=== PATIENT | male | born 1960 | race Caucasian/White ===

== ENCOUNTER 2024-08-06 09:14 | Emergency (ER) | payer MEDICARE, OTHER, SELFPAY ==
[2024-08-06] VITALS (11 sets, daily range): BP systolic 101–145; BP diastolic 48–70; PULSE 66–86; RESP 12–913; TEMP 36.9; O2SAT 91–100
--- NOTE | ~2024-08-06 | XR_ITS ---
CHEST RADIOGRAPH CLINICAL HISTORY: cp . COMPARISON: None available TECHNIQUE: Single portable view of the chest. FINDINGS The cardiomediastinal silhouette is unremarkable. The lungs are clear. Visualized osseous structures and soft tissues are unremarkable. IMPRESSION: No focal infiltrate or effusion. Reviewed, dictated and finalized at location A. ER EXPEDITOR AND DRIER
--- NOTE | ~2024-08-06 | CT_ITS ---
EXAMINATION: CTA chest abdomen pelvis DATE: 08/06/2024 10:30 PACKAGING ASSEMBLER INDICATION: Chest pain TECHNIQUE: Computed tomographic angiography (CTA) of the chest was performed, along with multiple con tiguous axial images of the abdomen and pelvis with 100 mL Omnipaque-350 intravenous contrast. The do se-length product was 748.77 mGy-cm. Maximum intensity projection 3D-reconstructions of the aorta and other arteries were constructed by the technologist on a separate workstation. FINDINGS/OBSERVATIONS: PULMONARY ARTERIES: No filling defect is identified within the main or proximal pulmonary arteries. The main pulmonary artery is not enlarged. THORACIC AORTA: No aneurysmal dilatation or dissection is present. The great vessels are intact LUNGS: The lungs are clear. MEDIASTINUM: No morphologically suspicious or pathologically enlarged lymph nodes are identified with in the mediastinum or bilateral axilla. BONES OF THE CHEST: No acute fracture. Moderate degenerative disease with osteophyte formation and disc space narrowing. No lytic or blastic lesions. HEART: The heart is of normal size, without pericardial effusion. LIVER: The liver enhances homogeneously and is not enlarged measuring 13 cm in longitudinal dimension. GALLBLADDER AND BILIARY SYSTEM: The gallbladder is only minimally distended, with multiple calcified stones and is otherwise unremark able. The common bile duct appears dilated measuring anywhere from 7.5 to 11 mm in caliber. No discrete aleshia rce of obstruction is appreciated on cross-sectional imaging. PANCREAS: The pancreas enhances homogeneously without ductal dilatation. Punctate calcifications throughout the body of the pancreas suggesting prior episodes of pancreatitis . SPLEEN: The spleen enhances homogeneously and is not enlarged measuring 9 cm in longitudinal dimension. KIDNEYS: The bilateral kidneys enhance symmetrically without hydronephrosis or renal calculi. Subcentimeter focus of decreased attenuation within the interpolar region of the right kidney, too sm all to characterize but statistically representing a cyst. ADRENAL GLANDS: Unremarkable. GASTROINTESTINAL TRACT: Small hiatal hernia is identified. Colonic diverticulosis without surrounding inflammatory change. Fecal stasis markedly distends the rectum APPENDIX: The appendix is not definitively visualized. However, no pericecal inflammatory change is identified suggest the presence of acute appendicitis. VASCULATURE: Densely calcified atherosclerotic disease within the abdominal aorta without aneurysmal dilatation or dissection LYMPH NODES: No pathologically enlarged or morphologically suspicious lymph nodes within the retroperitoneum or at the root of the mesentery. PELVIC STRUCTURES: The bladder is distended, and otherwise unremarkable. The prostate gland demonstrates bulky calcifications, but is not enlarged. BODY WALL AND MUSCULOSKELETAL: Small fat-containing umbilical hernia. Moderate degenerative disease within the lower thoracic and lumbosacral spines, with osteophyte forma tion, disc space narrowing, and endplate changes. Facet arthropathy is also noted. IMPRESSION: No pulmonary embolus. No aortic dissection. Fecal stasis markedly distending the rectum, suggesting fecal impaction. Cholelithiasis with common bile duct dilatation to 11 mm. Reviewed, dictated and finalized at location A. AGING ASSEMBLER
--- NOTE | 2024-08-06 09:15 | ECG_ITS ---
Test Date: 2024-08-06 09:23:07 Measurements Intervals [place] Rate: 71 P: 68 IN: 145 QRS: 2 QRSD: 79 T: 45 QT: 375 QTc: 410 Interpretive Statements SINUS RHYTHM WITH OCCASIONAL SUPRAVENTRICULAR PREMATURE COMPLEXES POSSIBLE LEFT ATRIAL ENLARGEMENT [-0.1mV P-WAVE IN V1/V2] No previous ECG available for comparison Electronically Signed On 08-06-2024 13:40:10 VISION IMPAIRED TEACHER by Fuentes Cartwright M.D.
--- NOTE | 2024-08-06 09:23 | ED.GENADULT ---
HPI - General Adult General Chief complaint: Chest Pain Stated complaint: cp, constipation Time Seen by Provider: 08/06/24 09:15 History of Present Illness HPI narrative: 63-year-old male presenting to the emergency department for evaluation for chest pain, back pain and constipation. Patient has dementia and does reside at a care facility. Patient had been complaining chest back pain prior to arrival. Patient does have a longstanding history of constipation as well. Patient stays at [facility] Related Data Allergies Allergy/AdvReac Type Severity Reaction Status Date / Time No Known Allergies Allergy Verified 08/06/24 09:20 Review of Systems Review of Systems: All systems reviewed & are unremarkable except as noted in HPI and below PMFSH Social History Social History Smoking status: Former smoker Alcohol intake: never Exam Narrative: APPEARANCE: Well appearing, no pain, no distress, well-nourished. HEAD: normocephalic, atraumatic. EYES: PERRLA/EOMI, conjunctivae clear. NOSE: Normal no drainage EARS:TMS clear with good light reflex. THROAT: Pharynx clear, no exudate. NECK: Supple. No adenopathy, no masses. RESPIRATORY: Airway patent, respirations nonlabored. Clear to auscultation bilaterally, no rales, rhonchi, wheezing. CARDIOVASCULAR: Regular rate and rhythm without murmurs rubs or gallops. ABDOMINAL: Normal bowel sounds with diffuse abdominal tenderness to palpation MUSCULOSKELETAL: Moves all extremities. Strength/ROM intact, No edema, No calf tenderness. NEURO: Alert. Cranial nerves II through XII intact. Good gait. Good coordination SKIN: Warm, dry. Normal Color Course Vital Signs Vital signs: Vital Signs Temperature 98.4 F 08/06/24 09:16 Pulse Rate 79 08/06/24 09:16 Respiratory Rate 15 08/06/24 09:16 Blood Pressure 120/70 08/06/24 09:16 Pulse Oximetry 95 08/06/24 09:16 Oxygen Delivery Room Air 08/06/24 09:16 Temperature 98.4 F 08/06/24 09:16 Pulse Rate 85 08/06/24 11:45 Respiratory Rate 14 08/06/24 11:45 Blood Pressure 133/67 08/06/24 11:31 Pulse Oximetry 91 08/06/24 11:31 Oxygen Delivery Room Air 08/06/24 09:16 Medical Decision Making [facility] Narrative Medical decision making narrative: 63-year-old male present to the emergency department for evaluation for chest pain back pain and constipation. Patient is afebrile with no leukocytosis and hemoglobin of 13.0. Patient has no significant abnormalities on the CMP troponins were negative, patient did have mild elevations and transaminases but no elevation in T bili. CTA chest abdomen pelvis did show evidence of constipation but no evidence of dissection. Patient's family was updated the results of the workup they were comfortable the plan for the patient being discharged back to his care facility. All questions concerns were addressed. Family was comfortable the patient being discharged home and doing home treatments for the constipation. Differential Diagnosis Differential Diagnosis: UTI, COVID, influenza, RSV, constipation, colitis, diverticulitis, bowel obstruction Vital Signs Vital Signs: Vital Signs Temperature 98.4 F 08/06/24 09:16 Pulse Rate 79 08/06/24 09:16 Respiratory Rate 15 08/06/24 09:16 Blood Pressure 120/70 08/06/24 09:16 Pulse Oximetry 95 08/06/24 09:16 Oxygen Delivery Room Air 08/06/24 09:16 Temperature 98.4 F 08/06/24 09:16 Pulse Rate 85 08/06/24 11:45 Respiratory Rate 14 08/06/24 11:45 Blood Pressure 133/67 08/06/24 11:31 Pulse Oximetry 91 08/06/24 11:31 Oxygen Delivery Room Air 08/06/24 09:16 Lab Data 08/06/24 09:34 08/06/24 09:34 Labs: Lab Results 08/06/24 08/06/24 Range/Units 09:34 12:12 WBC 5.9 (4.5-10.0) K/mm3 RBC 4.00 L (4.6-6.20) M/mm3 Hgb 13.0 L (14.0-18.0) g/dL Hct 36.2 L (42.0-52.0) % MCV 90.5 (80-100) fl MCH 32.5 (26-34) pg MCHC 35.9 (32-36) g/dl RDW 12.4 (11.5-14.5) % Plt Count 200 (150-375) k/mm3 MPV 9.3 (7.4-10.4) fl Immature Gran % (Auto) 0.2 (0-0.5) % Neut % (Auto) 75.3 H (45.5-73.1) % Lymph % (Auto) 14.5 L (18.3-44.2) % Harney % (Auto) 8.9 H (2.6-8.5) % Eos % (Auto) 0.9 (0-4.4) % Baso % (Auto) 0.2 (0.2-1.2) % Lymph # (Auto) 0.85 L (0.9-3.2) K/mm3 Harney # (Auto) 0.5 (0.1-0.6) K/mm3 Eos # (Auto) 0.1 (0-0.3) K/mm3 Baso # (Auto) 0.0 (0.0-0.1) K/mm3 Abs Immat Gran (auto) 0.01 (0.00-0.031) K/mm3 Absolute Neuts (auto) 4.4 (1.3-6.7) K/mm3 Absolute Nucleated RBC 0.000 (0.0-0.012) K/mm3 Nucleated RBC % 0.0 (0.0-0.2) % PT 14.3 (11.1-14.7) Seconds INR 1.1 APTT 29.9 (22.3-36.8) Seconds Sodium 134 L (137-145) mmol/L Potassium 3.8 (3.4-5.0) mmol/L Chloride 105 (98-107) mmol/L Carbon Dioxide 25 (22-30) mmol/L Anion Gap 4 (4-12) mmol/L BUN 15 (9-20) mg/dL Creatinine 0.80 (0.7-1.3) mg/dL Estim Creat Clear Calc 72 ml/min Estimated GFR > 60 (59 - ) Glucose 99 (65-110) mg/dL Calcium 8.8 (8.4-10.2) mg/dL Total Bilirubin 1.2 (0.2-1.3) mg/dL AST 135 H (17-59) U/L ALT 79 H (6-50) U/L Alkaline Phosphatase 58 (38-126) U/L Troponin I < 0.012 < 0.012 (0.000-0.034) ng/mL Total Protein 7.0 (6.3-8.2) g/dL Albumin 4.0 (3.5-5.1) g/dL Discharge Plan Discharge Clinical Impression: Chest pain, Constipation Patient Disposition: NH Long-Term/Asst Living Condition: Stable Instructions: Antibiotic Form, Chest Pain (ED), Constipation (ED) Additional Instructions: Increase your MiraLax dosing to help with constipation. Have close follow-up with your primary care physician. If you have any worsening symptoms then please call or return to the emergency department. Patient Language: Frisian Follow-up/Referrals: UNKNOWN,DOCTOR [Primary Care Provider] - Quality HEART score for chest pain patients History: slightly suspicious ECG: normal Age: < or = to 45 years Risk factors: 1 or 2 risk factors Troponin: < or = to 1x normal limit Heart score: 1
--- NOTE | 2024-08-06 09:37 | PC.NURSE ---
Patient ambulated to the restroom with assistance of and this RN. patient states he needed to have a bowel movement and is staying at the patient's side
[2024-08-06 09:42] LABS: Basophils Percent Auto 0.2 % (0.2-1.2); Eosinophils Absolute Auto 0.1 K/mm3 (0-0.3); Eosinophils Percent Auto 0.9 % (0-4.4); Hematocrit 36.2 % (42.0-52.0); Immature Granulocyte Absolute 0.01 K/mm3 (0.00-0.031); Immature Granulocyte Percent A 0.2 % (0-0.5); Lymphocytes Absolute Auto 0.85 K/mm3 (0.9-3.2); Lymphocytes Percent Auto 14.5 % (18.3-44.2); Mean Corpuscular HGB Conc 35.9 g/dl (32-36); Mean Corpuscular Hemoglobin 32.5 pg (26-34); Mean Corpuscular Volume 90.5 fl (80-100); Mean Platelet Volume 9.3 fl (7.4-10.4); Monocytes Absolute Auto 0.5 K/mm3 (0.1-0.6); Monocytes Percent Auto 8.9 % (2.6-8.5); Neutrophils Absolute Auto 4.4 K/mm3 (1.3-6.7); Neutrophils Percent Auto 75.3 % (45.5-73.1); Platelet Count Result 200 k/mm3 (150-375); Red Cell Distribution Width 12.4 % (11.5-14.5); White Blood Count 5.9 K/mm3 (4.5-10.0)
[2024-08-06 09:58] LABS: Alanine Aminotransferase 79 U/L (6-50); Alkaline Phosphatase 58 U/L (38-126); Anion Gap 4 mmol/L (4-12); Aspartate Amino Transferase 135 U/L (17-59); Bilirubin,Total 1.2 mg/dL (0.2-1.3); Blood Urea Nitrogen 15 mg/dL (9-20); Calcium 8.8 mg/dL (8.4-10.2); Carbon Dioxide 25 mmol/L (22-30); Chloride 105 mmol/L (98-107); Estimated CRCL calculation 72 ml/min; Estimated Glomerular Filt Rate > 60; Glucose 99 mg/dL (65-110); Potassium 3.8 mmol/L (3.4-5.0); Sodium 134 mmol/L (137-145)
[2024-08-06 09:59] LABS: INR 1.1; Prothrombin Time 14.3 Seconds (11.1-14.7)
[2024-08-06 10:00] LABS: Partial Thromboplastin Time 29.9 Seconds (22.3-36.8)
--- NOTE | 2024-08-06 10:00 | PC.NURSE ---
Patient unable to have a bowel movement. Per , patient has not had a BM in 3 days.
[2024-08-06 10:10] LABS: Troponin I < 0.012 ng/mL (0.000-0.034)
--- NOTE | 2024-08-06 11:06 | PC.NURSE ---
Patient ambulated to the restroom with steady gate
--- NOTE | 2024-08-06 11:20 | PC.NURSE ---
Patient placed on bed alarm for safety. Patient altered at this time and attempting to get out of bed. patient easily directed back into bed. family at bedside
--- NOTE | 2024-08-06 12:02 | ECG_ITS ---
Test Date: 2024-08-06 12:09:01 Measurements Intervals [place] Rate: 96 P: 74 MI: 141 QRS: -13 QRSD: 78 T: 51 QT: 348 QTc: 440 Interpretive Statements SINUS RHYTHM POSSIBLE LEFT ATRIAL ENLARGEMENT [-0.1mV P WAVE IN V1/V2] Compared to ECG 08/06/2024 09:23:07 No significant changes Electronically Signed On 08-06-2024 13:34:11 LAUNDRY MACHINE OPERATOR by Fuentes Cartwright M.D.
--- NOTE | 2024-08-06 12:05 | PC.NURSE ---
Elli at bedside with patient for safety
[2024-08-06 12:38] LABS: Troponin I < 0.012 ng/mL (0.000-0.034)
--- OUTSIDE RECORDS SUMMARY | 2024-08-13 04:54 | XMS_ITS | Encounter Summary ---
Author Organization [facility] Address [address] [place] [address] Phone Care Team Providers Care Base Engineer Name Role Phone Provider, None Primary Care Provider Mustapha Hall MD Unavailable [phone] Reason for Visit * Auth/Cert (Routine) Specialty Diagnoses / Procedures Referred By Samira t Referred To Contact Referral ID Status Reason Start Date Expiration Date Visits Re quested Visits Authorized [id number] 1 1 Encounter Details Date Type Department Care Team (Latest Contact Info) Description 07/02/2024 11:00 AM PEDIATRIC UROLOGIST Home Care Visit [facility] [address] [place] [address] Homa Bernabe RN [place] - [place] HOME VISIT Social History Tobacco Use Types Packs/Day Years Used Date Smoking Tobacco: Never Assessed Sex and Gender Information Value Date Recorded Sex Assigned at Not on file Legal Sex Male 2:48 AM PEDIATRIC UROLOGIST Gender Identity Not on file Sexual Orientation Not on file documented as of this encounter Last Filed Vital Signs Vital Sign Reading Time Taken Comments Blood Pressure 109/68 07/02/2024 11:40 AM PEDIATRIC UROLOGIST Pulse 81 07/02/2024 11:40 AM PEDIATRIC UROLOGIST Temperature 36.4 ??C (97.5 ??F) 07/02/2024 11:[address] Respiratory Rate 16 07/02/2024 11:40 AM PEDIATRIC UROLOGIST Oxygen Saturation 96% 07/02/2024 11:40 AM PEDIATRIC UROLOGIST Inhaled Oxygen Concentration - - Weight - - Height - - Body Mass Index - - documented in this encounter Plan of Treatment Not on file documented as of this encounter Visit Diagnoses Not on filedocumented in this encounter Care Teams Base Engineer Relationship Specialty Start Date End Date Provider, None [place] PCP - General 04/27/24 Mustapha Cárdenas MD [address] [place] [address] PCP - Hospice Attending Provider 04/28/24 07/18/24 documented as of this encounter
--- OUTSIDE RECORDS SUMMARY | 2024-08-13 04:54 | XMS_ITS | Encounter Summary ---
Author Organization [facility] Address [address] [facility] [place] [address] Phone Care Team Providers Care Pre Press Manager Name Role Phone Provider, None Primary Care Provider Mustapha Hall MD Unavailable [phone] Encounter Details Date Type Department Care Team (Late st Contact Info) Description 05/21/2024 Telephone [facility] [address] [place] [address] Homa Bernabe, RN [place] Social History Tobacco Use Types Packs/Day Years Used Date Smoking Tobacco: Never Assessed Sex and Gender Information Value Date Recorded Sex Assigned at Not on file Legal Sex Male 2:48 AM NOISE TESTER Gender Identity Not on file Sexual Orientation Not on file documented as of this encounter Miscellaneous Notes * Telephone Encounter - Homa Bernabe RN - 05/21/2024 11:52 AM CDT Spoke to Dr Cárdenas regarding pending meds to [facility]. documented in this encounter Plan of Treatment Not on file documented as of this encounter Visit Diagnoses Diagnosis Terminal care- Primary Encounter for palliative care documented in this encounter Care Teams Pre Press Manager Relationship Specialty Start Date End Date Provider, None [place] PCP - General 04/27/24 Mustapha Cárdenas MD [address] [place] [address] PCP - Hospice Attending Provider 04/28/24 07/18/24 documented as of this encounter
--- OUTSIDE RECORDS SUMMARY | 2024-08-13 04:54 | XMS_ITS | Encounter Summary ---
Author Organization [facility] Address [address] [place] [address] Phone Care Team Providers Care Bladder Cleaner Name Role Phone Provider, None Primary Care Provider Mustapha Hall MD Unavailable [phone] Reason for Visit * Auth/Cert (Routine) Specialty Diagnoses / Procedures Referred By Samira yu Referred To Contact Referral ID Status Reason Start Date Expiration Date Visits Re quested Visits Authorized [id number] 1 1 Encounter Details Date Type Department Care Team (Latest Contact Info) Description 05/16/2024 11:00 AM CDT Home Care Visit [facility] [address] [place] [address] Homa Bernabe RN [place] HOME VISIT Social History Tobacco Use Types Packs/Day Years Used Date Smoking Tobacco: Never Assessed Sex and Gender Information Value Date Recorded Sex Assigned at Not on file Legal Sex Male 2:48 AM METAL PATTERNMAKER Gender Identity Not on file Sexual Orientation Not on file documented as of this encounter Last Filed Vital Signs Vital Sign Reading Time Taken Comments Blood Pressure 100/74 05/16/2024 11:03 AM CDT Pulse 81 05/16/2024 11:03 AM CDT Temperature 36.4 ??C (97.5 ??F) 05/16/2024 11:03 AM C DT Respiratory Rate 16 05/16/2024 11:03 AM CDT Oxygen Saturation 97% 05/16/2024 11:03 AM CDT Inhaled Oxygen Concentration - - Weight - - Height - - Body Mass Index - - documented in this encounter Plan of Treatment Not on file documented as of this encounter Visit Diagnoses Not on filedocumented in this encounter Care Teams Bladder Cleaner Relationship Specialty Start Date End Date Provider, None [place] PCP - General 04/27/24 Mustapha Cárdenas MD [address] [place] [address] PCP - Hospice Attending Provider 04/28/24 07/18/24 documented as of this encounter
--- OUTSIDE RECORDS SUMMARY | 2024-08-13 04:54 | XMS_ITS | Encounter Summary ---
Author Organization [facility] Address [address] [place] [address] Phone Care Team Providers Care Char Filter Operator Helper Name Role Phone Provider, None Primary Care Provider Mustapha Hall MD Unavailable [phone] Reason for Visit * Auth/Cert (Routine) Specialty Diagnoses / Procedures Referred By Samira yu Referred To Contact Referral ID Status Reason Start Date Expiration Date Visits Re quested Visits Authorized [id number] 1 1 Encounter Details Date Type Department Care Team (Late st Contact Info) Description 07/11/2024 1:00 PM BANK MESSENGER [facility] [address] [place] [address] Toya Fung CNA [place] [facility] - [facility]IS[facility] Social History Tobacco Use Types Packs/Day Years Used Date Smoking Tobacco: Never Assessed Sex and Gender Information Value Date Recorded Sex Assigned at Not on file Legal Sex Male 2:48 AM BANK MESSENGER Gender Identity Not on file Sexual Orientation Not on file documented as of this encounter Last Filed Vital Signs Vital Sign Reading Time Taken Comments Blood Pressure 104/86 07/11/2024 12:40 PM BANK MESSENGER Pulse 101 07/11/2024 12:40 PM BANK MESSENGER Temperature 36.4 ??C (97.5 ??F) 07/11/2024 12:[address] Respiratory Rate 18 07/11/2024 12:40 PM BANK MESSENGER Oxygen Saturation 98% 07/11/2024 12:40 PM BANK MESSENGER Inhaled Oxygen Concentration - - Weight - - Height - - Body Mass Index - - documented in this encounter Plan of Treatment Not on file documented as of this encounter Visit Diagnoses Not on filedocumented in this encounter Hospice Visit - Care Plan Visit Details Visit Type -[facility] - HOSPICE Vi sit Discipline -Wildlife Officer Problems Problem Description Start Date Status Goals Interve ntions [facility] SERVICES Disciplines: Wildlife Officer 04/28/2024 Active 1 goal linked to scheduled/document ed intervention 1 goal intervention scheduled/document ed in this visit [facility] PROVIDE BATH Disciplines: Wildlife Officer 04/28/2024 Active - 1 problem intervention scheduled/document ed in this visit [facility] CARE PLAN Disciplines: Wildlife Officer [facility] Care Plan 04/28/2024 Active - 7 problem interventions scheduled/document ed in this visit [facility] CARE PLAN Disciplines: Wildlife Officer [facility] Care Plan 05/13/2024 Active - 1 problem intervention scheduled/document ed in this visit Goals Goal Associated Problem Outcome Goal Met? Visit Notes [facility] Care Plan Description: Patient will have personal hygiene needs met. Target date: within 2 weeks and beyond 07/26/24 [facility] SERVICES No Interventions Intervention Associated Problem/Goal Status Variance Visit Notes [facility] Services/Communication Description: Provide [facility] services as described in the [facility] Care Plan. Report changes in medical condition, complaints and safety concerns to the Office Machines Teacher. Problem:[facility] SERVICES Goal:[facility] Care Plan Completed Evaluated for a change in medical condition, complaint of pain, safety concern or other issues. Issues identified none. Communicated to CM. Provide Bath Description: Bathe patient unless patient/caregiver declines. Method: shower Problem:[facility] PROVIDE BATH Completed Bathed patient by shower. Apply Non-Medicated Lotion Or Powder Description: Apply non medicated lotion or powder unless patient/caregiver declines. Problem:[facility] CARE PLAN Completed Applied non medicated lotion or powder to arms, legs and back Take Vital Signs Description: Take Vital signs pulse, temperature, respirations and blood pressure. Vital sign parameters: Refer to vital sign parameters order in Summary Report/ Patient Summary. Problem:[facility] CARE PLAN Completed See Vital Signs flowsheet. Utilize Appropriate Precautions Description: Precautions other fall prevention, standard precautions. Problem:[facility] CARE PLAN Completed Precautions taken skin risks and falls Perform Oral Care Description: Assist with oral care brush teeth unless patient/caregiver declines. Problem:[facility] CARE PLAN Completed Perform Hair Care Description: Provide hair care unless patient/caregiver declines. Problem:[facility] CARE PLAN Completed Assist With Dressing Description: Assist patient with dressing/undressing unless patient/caregiver declines. Problem:[facility] CARE PLAN Completed Communicate with Hay Buckler Description: Communicate with access clinician as needed. Problem:[facility] CARE PLAN Completed Assist With Shaving Description: Shave patient unless patient/caregiver declines. Problem:[facility] CARE PLAN Completed documented in this encounter Care Teams Char Filter Operator Helper Relationship Specialty Start Date End Date Provider, None [place] PCP - General 04/27/24 Mustapha Cárdenas MD [address] [place] [address] PCP - Hospice Attending Provider 04/28/24 07/18/24 documented as of this encounter
--- OUTSIDE RECORDS SUMMARY | 2024-08-13 04:54 | XMS_ITS | Encounter Summary ---
Author Organization [facility] Care Team Providers Care Boiler Installer Name Role Phone Provider, None Primary Care Provider Mustapha Hall MD Unavailable Encounter Details Date Type Department Care Team (Latest Contact Info) Description 06/06/2024 Travel Social History Tobacco Use Types Packs/Day Years Used Date Smoking Tobacco: Never Assessed Sex and Gender Information Value Date Recorded Sex Assigned at Not on file Legal Sex Male 2:48 AM PROJECTION ENGINEER Gender Identity Not on file Sexual Orientation Not on file documented as of this encounter Plan of Treatment Not on file documented as of this encounter Visit Diagnoses Not on filedocumented in this encounter Care Teams Boiler Installer Relationship Specialty Start Date End Date Provider, None [place] PCP - General 04/27/24 Mustapha Cárdenas MD [address] [place] [address] PCP - Hospice Attending Provider 04/28/24 07/18/24 documented as of this encounter
--- OUTSIDE RECORDS SUMMARY | 2024-08-13 04:54 | XMS_ITS | Encounter Summary ---
Author Organization [facility] Address [address] [place] [address] Phone Care Team Providers Care Tennis Ball Coverer Hand Name Role Phone Provider, None Primary Care Provider Mustapha Hall MD Unavailable [phone] Reason for Visit * Auth/Cert (Routine) Specialty Diagnoses / Procedures Referred By Samira t Referred To Contact Referral ID Status Reason Start Date Expiration Date Visits Re quested Visits Authorized [id number] 1 1 Encounter Details Date Type Department Care Team (Latest Contact Info) Description 07/09/2024 1:00 PM NON FOOD RECEIVING CLERK [facility] [address] [place] [address] Homa Bernabe RN [place] HOME VISIT Social History Tobacco Use Types Packs/Day Years Used Date Smoking Tobacco: Never Assessed Sex and Gender Information Value Date Recorded Sex Assigned at Not on file Legal Sex Male 2:48 AM NON FOOD RECEIVING CLERK Gender Identity Not on file Sexual Orientation Not on file documented as of this encounter Last Filed Vital Signs Vital Sign Reading Time Taken Comments Blood Pressure - - Pulse 87 07/09/2024 12:41 PM NON FOOD RECEIVING CLERK Temperature 36.3 ??C (97.3 ??F) 07/09/2024 12:[address] Respiratory Rate 16 07/09/2024 12:41 PM NON FOOD RECEIVING CLERK Oxygen Saturation 92% 07/09/2024 12:41 PM NON FOOD RECEIVING CLERK Inhaled Oxygen Concentration - - Weight - - Height - - Body Mass Index - - documented in this encounter Plan of Treatment Not on file documented as of this encounter Visit Diagnoses Not on filedocumented in this encounter Care Teams Tennis Ball Coverer Hand Relationship Specialty Start Date End Date Provider, None [place] PCP - General 04/27/24 Mustapha Cárdenas MD [address] [place] [address] PCP - Hospice Attending Provider 04/28/24 07/18/24 documented as of this encounter
--- OUTSIDE RECORDS SUMMARY | 2024-08-13 04:54 | XMS_ITS | Encounter Summary ---
Author Organization [facility] Address [address] [place] [address] Phone Care Team Providers Care Truck Driver Helper Name Role Phone Provider, None Primary Care Provider Mustapha Hall MD Unavailable [phone] Reason for Visit * Auth/Cert (Routine) Specialty Diagnoses / Procedures Referred By Samira yu Referred To Contact Referral ID Status Reason Start Date Expiration Date Visits Re quested Visits Authorized [id number] 1 1 Encounter Details Date Type Department Care Team (Latest Contact Info) Description 05/23/2024 11:00 AM CDT [facility] [address] [place] [address] Homa Bernabe RN [place] SN - HOSPICE HOME VISIT Social History Tobacco Use Types Packs/Day Years Used Date Smoking Tobacco: Never Assessed Sex and Gender Information Value Date Recorded Sex Assigned at Not on file Legal Sex Male 2:48 AM VISUAL AND STOCK ASSOCIATE Gender Identity Not on file Sexual Orientation Not on file documented as of this encounter Last Filed Vital Signs Vital Sign Reading Time Taken Comments Blood Pressure 152/82 05/23/2024 11:32 AM CDT Pulse 98 05/23/2024 11:32 AM CDT Temperature 36.6 ??C (97.9 ??F) 05/23/2024 11:32 AM C DT Respiratory Rate 16 05/23/2024 11:32 AM CDT Oxygen Saturation 96% 05/23/2024 11:32 AM CDT Inhaled Oxygen Concentration - - Weight - - Height - - Body Mass Index - - documented in this encounter Plan of Treatment Not on file documented as of this encounter Visit Diagnoses Not on filedocumented in this encounter Care Teams Truck Driver Helper Relationship Specialty Start Date End Date Provider, None [place] PCP - General 04/27/24 Mustapha Cárdenas MD [address] [place] [address] PCP - Hospice Attending Provider 04/28/24 07/18/24 documented as of this encounter
--- OUTSIDE RECORDS SUMMARY | 2024-08-13 04:54 | XMS_ITS | Encounter Summary ---
Author Organization [facility] Address [address] [place] [address] Phone Care Team Providers Care Customer Engagement Analyst Name Role Phone Provider, None Primary Care Provider Mustapha Hall MD Unavailable [phone] Reason for Visit * Auth/Cert (Routine) Specialty Diagnoses / Procedures Referred By Samira yu Referred To Contact Referral ID Status Reason Start Date Expiration Date Visits Re quested Visits Authorized [id number] 1 1 Encounter Details Date Type Department Care Team (Latest Contact Info) Description 05/15/2024 1:00 PM CDT [facility] [address] [place] [address] Earl Roblero CNA [place] [facility] - [facility]ICE VISIT Social History Tobacco Use Types Packs/Day Years Used Date Smoking Tobacco: Never Assessed Sex and Gender Information Value Date Recorded Sex Assigned at Not on file Legal Sex Male 2:48 AM HEREDITARY CANCER PROGRAM COORDINATOR Gender Identity Not on file Sexual Orientation Not on file documented as of this encounter Last Filed Vital Signs Vital Sign Reading Time Taken Comments Blood Pressure 140/64 05/15/2024 1:47 PM CDT Pulse 82 05/15/2024 1:47 PM CDT Temperature - - Respiratory Rate 18 05/15/2024 1:47 PM CDT Oxygen Saturation - - Inhaled Oxygen Concentration - - Weight - - Height - - Body Mass Index - - documented in this encounter Plan of Treatment Not on file documented as of this encounter Visit Diagnoses Not on filedocumented in this encounter Hospice Visit - Care Plan Visit Details Visit Type -[facility] - HOSPICE Vi sit Discipline -Welder Gas Tungsten Arc Problems Problem Description Start Date Status Goals Interve ntions [facility] SERVICES Disciplines: Welder Gas Tungsten Arc 04/28/2024 Active 1 goal linked to scheduled/document ed intervention 1 goal intervention scheduled/document ed in this visit [facility] PROVIDE BATH Disciplines: Welder Gas Tungsten Arc 04/28/2024 Active - 1 problem intervention scheduled/document ed in this visit [facility] CARE PLAN Disciplines: Welder Gas Tungsten Arc [facility] Care Plan 04/28/2024 Active - 7 problem interventions scheduled/document ed in this visit [facility] CARE PLAN Disciplines: Welder Gas Tungsten Arc [facility] Care Plan 05/13/2024 Active - 1 [...] condition, complaints and safety concerns to the Applications Project Manager. Problem:[facility] SERVICES Goal:[facility] Care Plan Completed Evaluated for a change in medical condition, complaint of pain, safety concern or other issues. Issues identified no issues Communicated to CM Provide Bath Description: Bathe patient unless patient/caregiver declines. Method: shower Problem:[facility] PROVIDE BATH Completed Bathed patient by shower. Apply Non-Medicated Lotion Or Powder Description: Apply non medicated lotion or powder unless patient/caregiver declines. Problem:[facility] CARE PLAN Completed Applied non medicated lotion or powder to back arms and legs Take Vital Signs Description: Take Vital signs pulse, temperature, respirations and blood pressure. Vital sign parameters: Refer to vital sign parameters order in Summary Report/ Patient Summary. Problem:[facility] CARE PLAN Completed See Vital Signs flowsheet. Utilize Appropriate Precautions Description: Precautions other fall prevention, standard precautions. Problem:[facility] CARE PLAN Completed Precautions taken skin risks and falls. Perform Oral Care Description: Assist with oral care brush teeth unless patient/caregiver declines. Problem:[facility] CARE PLAN Completed Perform Hair Care Description: Provide hair care unless patient/caregiver declines. Problem:[facility] CARE PLAN Completed Assist With Dressing Description: Assist patient with dressing/undressing unless patient/caregiver declines. Problem:[facility] CARE PLAN Completed Communicate with Channeler Insole Description: Communicate with outreach clinician as needed. Problem:[facility] CARE PLAN Completed Assist With Shaving Description: Shave patient unless patient/caregiver declines. Problem:[facility] CARE PLAN Completed documented in this encounter Care Teams Customer Engagement Analyst Relationship Specialty Start Date End Date Provider, None [place] PCP - General 04/27/24 Mustapha Cárdenas MD [address] [place] [address] PCP - Hospice Attending Provider 04/28/24 07/18/24 documented as of this encounter
--- OUTSIDE RECORDS SUMMARY | 2024-08-13 04:54 | XMS_ITS | Encounter Summary ---
Author Organization [facility] Address [address] [place] [address] Phone Care Team Providers Care Digital Media Buyer Name Role Phone Provider, None Primary Care Provider Mustapha Hall MD Unavailable [phone] Reason for Visit * Auth/Cert (Routine) Specialty Diagnoses / Procedures Referred By Samira t Referred To Contact Referral ID Status Reason Start Date Expiration Date Visits Re quested Visits Authorized [id number] 1 1 Encounter Details Date Type Department Care Team (Latest Contact Info) Description 06/17/2024 10:00 AM ROUGH CARPENTER Home [facility] Visit [facility] [address] [place] [address] Homa Bernabe RN [place] - [place]OSPICE HOME VISIT Social History Tobacco Use Types Packs/Day Years Used Date Smoking Tobacco: Never Assessed Sex and Gender Information Value Date Recorded Sex Assigned at Not on file Legal Sex Male 2:48 AM ROUGH CARPENTER Gender Identity Not on file Sexual Orientation Not on file documented as of this encounter Last Filed Vital Signs Vital Sign Reading Time Taken Comments Blood Pressure 128/70 06/17/2024 10:29 AM ROUGH CARPENTER Pulse 94 06/17/2024 10:29 AM ROUGH CARPENTER Temperature 36.6 ??C (97.9 ??F) 06/17/2024 10:[address] Respiratory Rate 16 06/17/2024 10:29 AM ROUGH CARPENTER Oxygen Saturation 98% 06/17/2024 10:29 AM ROUGH CARPENTER Inhaled Oxygen Concentration - - Weight - - Height - - Body Mass Index - - documented in this encounter Plan of Treatment Not on file documented as of this encounter Visit Diagnoses Not on filedocumented in this encounter Care Teams Digital Media Buyer Relationship Specialty Start Date End Date Provider, None [place] PCP - General 04/27/24 Mustapha Cárdenas MD [address] [place] [address] PCP - Hospice Attending Provider 04/28/24 07/18/24 documented as of this encounter
--- OUTSIDE RECORDS SUMMARY | 2024-08-13 04:54 | XMS_ITS | Encounter Summary ---
Author Organization [facility] Address [address] [place] [address] Phone Care Team Providers Care Sales Training Manager Name Role Phone Provider, None Primary Care Provider Mustapha Hall MD Unavailable [phone] Reason for Visit * Auth/Cert (Routine) Specialty Diagnoses / Procedures Referred By Samira t Referred To Contact Referral ID Status Reason Start Date Expiration Date Visits Re quested Visits Authorized [id number] 1 1 Encounter Details Date Type Department Care Team (Late st Contact Info) Description 06/27/2024 [facility] [address] [place] [address] Homa Bernabe, RN [place] CASE COMMUNICATION Social History Tobacco Use Types Packs/Day Years Used Date Smoking Tobacco: Never Assessed Sex and Gender Information Value Date Recorded Sex Assigned at Not on file Legal Sex Male 2:48 AM ANIMAL TRAINER Gender Identity Not on file Sexual Orientation Not on file documented as of this encounter Plan of Treatment Not on file documented as of this encounter Visit Diagnoses Not on filedocumented in this encounter Care Teams Sales Training Manager Relationship Specialty Start Date End Date Provider, None [place] PCP - General 04/27/24 Mustapha Cárdenas MD [address] [place] [address] PCP - Hospice Attending Provider 04/28/24 07/18/24 documented as of this encounter
--- OUTSIDE RECORDS SUMMARY | 2024-08-13 04:54 | XMS_ITS | Encounter Summary ---
Author Organization [facility] Care Team Providers Care Behavioral Psychologist Name Role Phone Provider, None Primary Care Provider Mustapha Hall MD Unavailable Encounter Details Date Type Department Care Team (Latest Contact Info) Description 07/15/2024 Travel Social History Tobacco Use Types Packs/Day Years Used Date Smoking Tobacco: Never Assessed Sex and Gender Information Value Date Recorded Sex Assigned at Not on file Legal Sex Male 2:48 AM DOLLY PUSHER Gender Identity Not on file Sexual Orientation Not on file documented as of this encounter Plan of Treatment Not on file documented as of this encounter Visit Diagnoses Not on filedocumented in this encounter Care Teams Behavioral Psychologist Relationship Specialty Start Date End Date Provider, None [place] PCP - General 04/27/24 Mustapha Cárdenas MD [address] [place] [address] PCP - Hospice Attending Provider 04/28/24 07/18/24 documented as of this encounter
--- OUTSIDE RECORDS SUMMARY | 2024-08-13 04:54 | XMS_ITS | Encounter Summary ---
Author Organization [facility] Address [address] [place] [address] Phone Care Team Providers Care Process Improvement Engineer Name Role Phone Provider, None Primary Care Provider Mustapha Hall MD Unavailable [phone] Reason for Visit * Auth/Cert (Routine) Specialty Diagnoses / Procedures Referred By Samira yu Referred To Contact Referral ID Status Reason Start Date Expiration Date Visits Re quested Visits Authorized [id number] 1 1 Encounter Details Date Type Department Care Team (Latest Contact Info) Description 07/15/2024 11:00 AM TECHNOLOGY SOLUTIONS ARCHITECT Home Care Visit [facility] [address] [place] [address] Homa Bernabe RN [place] - HOSPICE HOME VISIT Social History Tobacco Use Types Packs/Day Years Used Date Smoking Tobacco: Never Assessed Sex and Gender Information Value Date Recorded Sex Assigned at Not on file Legal Sex Male 2:48 AM TECHNOLOGY SOLUTIONS ARCHITECT Gender Identity Not on file Sexual Orientation Not on file documented as of this encounter Last Filed Vital Signs Vital Sign Reading Time Taken Comments Blood Pressure 122/87 07/15/2024 11:02 AM TECHNOLOGY SOLUTIONS ARCHITECT Pulse 91 07/15/2024 11:02 AM TECHNOLOGY SOLUTIONS ARCHITECT Temperature 36.3 ??C (97.3 ??F) 07/15/2024 11:[address] Respiratory Rate 16 07/15/2024 11:02 AM TECHNOLOGY SOLUTIONS ARCHITECT Oxygen Saturation 96% 07/15/2024 11:02 AM TECHNOLOGY SOLUTIONS ARCHITECT Inhaled Oxygen Concentration - - Weight - - Height - - Body Mass Index - - documented in this encounter Plan of Treatment Not on file documented as of this encounter Visit Diagnoses Not on filedocumented in this encounter Care Teams Process Improvement Engineer Relationship Specialty Start Date End Date Provider, None [place] PCP - General 04/27/24 Mustapha Cárdenas MD [address] [place] [address] PCP - Hospice Attending Provider 04/28/24 07/18/24 documented as of this encounter
--- OUTSIDE RECORDS SUMMARY | 2024-08-13 04:54 | XMS_ITS | Encounter Summary ---
Author Organization [facility] Address [address] [place] [address] Phone Care Team Providers Care Piece Cutter Name Role Phone Provider, None Primary Care Provider Mustapha Hall MD Unavailable [phone] Reason for Visit * Auth/Cert (Routine) Specialty Diagnoses / Procedures Referred By Samira yu Referred To Contact Referral ID Status Reason Start Date Expiration Date Visits Re quested Visits Authorized [id number] 1 1 Encounter Details Date Type Department Care Team (Latest Contact Info) Description 06/28/2024 11:00 AM PROJECT CONTROLLER [facility] [address] [place] [address] Homa Bernabe RN [place] SN - HOSPICE HOME VISIT Social History Tobacco Use Types Packs/Day Years Used Date Smoking Tobacco: Never Assessed Sex and Gender Information Value Date Recorded Sex Assigned at Not on file Legal Sex Male 2:48 AM PROJECT CONTROLLER Gender Identity Not on file Sexual Orientation Not on file documented as of this encounter Last Filed Vital Signs Vital Sign Reading Time Taken Comments Blood Pressure 129/93 06/28/2024 11:12 AM PROJECT CONTROLLER Pulse 98 06/28/2024 11:12 AM PROJECT CONTROLLER Temperature 36.4 ??C (97.5 ??F) 06/28/2024 11:[address] Respiratory Rate 16 06/28/2024 11:12 AM PROJECT CONTROLLER Oxygen Saturation - - Inhaled Oxygen Concentration - - Weight - - Height - - Body Mass Index - - documented in this encounter Plan of Treatment Not on file documented as of this encounter Visit Diagnoses Not on filedocumented in this encounter Care Teams Piece Cutter Relationship Specialty Start Date End Date Provider, None [place] PCP - General 04/27/24 Mustapha Cárdenas MD [address] [place] [address] PCP - Hospice Attending Provider 04/28/24 07/18/24 documented as of this encounter
--- OUTSIDE RECORDS SUMMARY | 2024-08-13 04:54 | XMS_ITS | Encounter Summary ---
Author Organization [facility] Address [address] [place] [address] Phone Care Team Providers Care Assistant Kitchen Manager Name Role Phone Provider, None Primary Care Provider Mustapha Hall MD Unavailable [phone] Reason for Visit * Auth/Cert (Routine) Specialty Diagnoses / Procedures Referred By Samira yu Referred To Contact Referral ID Status Reason Start Date Expiration Date Visits Re quested Visits Authorized [id number] 1 1 Encounter Details Date Type Department Care Team (Latest Contact Info) Description 07/04/2024 1:00 PM CHICKEN HATCHERY HELPER [facility] [address] [place] [address] Earl Roblero CNA [place] [facility] - [facility]PICE VISIT Social History Tobacco Use Types Packs/Day Years Used Date Smoking Tobacco: Never Assessed Sex and Gender Information Value Date Recorded Sex Assigned at Not on file Legal Sex Male 2:48 AM CHICKEN HATCHERY HELPER Gender Identity Not on file Sexual Orientation Not on file documented as of this encounter Last Filed Vital Signs Vital Sign Reading Time Taken Comments Blood Pressure 131/72 07/04/2024 12:10 PM CHICKEN HATCHERY HELPER Pulse 76 07/04/2024 12:10 PM CHICKEN HATCHERY HELPER Temperature 36.6 ??C (97.8 ??F) 07/04/2024 12:[address] Respiratory Rate 18 07/04/2024 12:10 PM CHICKEN HATCHERY HELPER Oxygen Saturation - - Inhaled Oxygen Concentration - - Weight - - Height - - Body Mass Index - - documented in this encounter Plan of Treatment Not on file documented as of this encounter Visit Diagnoses Not on filedocumented in this encounter Hospice Visit - Care Plan Visit Details Visit Type -[facility] - HOSPICE Vi sit Discipline -Count Room Clerk Problems Problem Description Start Date Status Goals Interve ntions [facility] SERVICES Disciplines: Count Room Clerk 04/28/2024 Active 1 goal linked to scheduled/document ed intervention 1 goal intervention scheduled/document ed in this visit [facility] PROVIDE BATH Disciplines: Count Room Clerk 04/28/2024 Active - 1 problem intervention scheduled/document ed in this visit [facility] CARE PLAN Disciplines: Count Room Clerk [facility] Care Plan 04/28/2024 Active - 7 problem interventions scheduled/document ed in this visit [facility] CARE PLAN Disciplines: Count Room Clerk [facility] Care Plan 05/13/2024 Active - 1 [...] condition, complaints and safety concerns to the Transportation Maintenance Worker. Problem:[facility] SERVICES Goal:[facility] Care Plan Completed Evaluated for a change in medical condition, complaint of pain, safety concern or other issues. Issues identified none. Communicated to CM Provide Bath Description: Bathe patient unless patient/caregiver declines. Method: shower Problem:[facility] PROVIDE BATH Completed Bathed patient by shower. Apply Non-Medicated Lotion Or Powder Description: Apply non medicated lotion or powder unless patient/caregiver declines. Problem:[facility] CARE PLAN Completed Applied non medicated lotion or powder to back arm's and legs Take Vital Signs Description: Take Vital signs pulse, temperature, respirations and blood pressure. Vital sign parameters: Refer to vital sign parameters order in Summary Report/ Patient Summary. Problem:[facility] CARE PLAN Completed See Vital Signs flowsheet. Utilize Appropriate Precautions Description: Precautions other fall prevention, standard precautions. Problem:[facility] CARE PLAN Completed Precautions taken skin risk and falls Perform Oral Care Description: Assist with oral care brush teeth unless patient/caregiver declines. Problem:[facility] CARE PLAN Completed Perform Hair Care Description: Provide hair care unless patient/caregiver declines. Problem:[facility] CARE PLAN Completed Assist With Dressing Description: Assist patient with dressing/undressing unless patient/caregiver declines. Problem:[facility] CARE PLAN Completed Communicate with Chart Reader Description: Communicate with pairing machine operator as needed. Problem:[facility] CARE PLAN Completed Assist With Shaving Description: Shave patient unless patient/caregiver declines. Problem:[facility] CARE PLAN Completed documented in this encounter Care Teams Assistant Kitchen Manager Relationship Specialty Start Date End Date Provider, None [place] PCP - General 04/27/24 Mustapha Cárdenas MD [address] [place] [address] PCP - Hospice Attending Provider 04/28/24 07/18/24 documented as of this encounter
--- OUTSIDE RECORDS SUMMARY | 2024-08-13 04:54 | XMS_ITS | Encounter Summary ---
Author Organization [facility] Address [address] [facility] [place] [address] Phone Care Team Providers Care Coal Mill Operator Name Role Phone Provider, None Primary Care Provider Mustapha Hall MD Unavailable [phone] Encounter Details Date Type Department Care Team (Late st Contact Info) Description 07/09/2024 [facility] [address] [place] [id number] Mustapha Cárdenas MD [address] [place] [address] Social History Tobacco Use Types Packs/Day Years Used Date Smoking Tobacco: Never Assessed Sex and Gender Information Value Date Recorded Sex Assigned at Not on file Legal Sex Male 2:48 AM SLASHER MACHINE OPERATOR Gender Identity Not on file Sexual Orientation Not on file documented as of this encounter Plan of Treatment Not on file documented as of this encounter Procedures Procedure Name Priority Date/Time Associated Diagnosis Comments CULTURE, URINE Routine 07/09/2024 4:00 AM SLASHER MACHINE OPERATOR documented in this encounter Results * CULTURE, URINE (07/09/2024 4:00 AM SLASHER MACHINE OPERATOR) CULTURE RESULTS Mixed Growth of One or More Distal Urethral Contaminants 07/11/2024 12:38 AM SLASHER MACHINE OPERATOR [facility] Culture URINE SPECIMEN / Unknown Non-Phlebotomy Collection / Unknown 07/09/2024 4:00 AM SLASHER MACHINE OPERATOR 07/09/2024 2:39 PM SLASHER MACHINE OPERATOR us Mustapha Cárdenas MD MICROBIOLOGY - GENERAL O RDERABLES Final Result [facility] [address] [place] [address], documented in this encounter Visit Diagnoses Not on filedocumented in this encounter Care Teams Coal Mill Operator Relationship Specialty Start Date End Date Provider, None [place] PCP - General 04/27/24 Mustapha Cárdenas MD [address] [place] [address] PCP - Hospice Attending Provider 04/28/24 07/18/24 documented as of this encounter
--- OUTSIDE RECORDS SUMMARY | 2024-08-13 04:54 | XMS_ITS | Encounter Summary ---
Author Organization [facility] Address [address] [facility] [place] [address] Phone Care Team Providers Care Procedure Analyst Name Role Phone Provider, None Primary Care Provider Mustapha Hall MD Unavailable [phone] Encounter Details Date Type Department Care Team (Late st Contact Info) Description 06/24/2024 Telephone [facility] [address] [place] [address] Homa Bernabe, RN [place] Social History Tobacco Use Types Packs/Day Years Used Date Smoking Tobacco: Never Assessed Sex and Gender Information Value Date Recorded Sex Assigned at Not on file Legal Sex Male 2:48 AM GRIP ASSEMBLER Gender Identity Not on file Sexual Orientation Not on file documented as of this encounter Miscellaneous Notes * Telephone Encounter - Homa Bernabe RN - 06/24/2024 10:51 AM CST Spoke to Dr Cárdenas regarding pending lorazepam to [facility]. ASSEMBLER documented in this encounter Plan of Treatment Not on file documented as of this encounter Visit Diagnoses Diagnosis Terminal care- Primary Encounter for palliative care documented in this encounter Care Teams Procedure Analyst Relationship Specialty Start Date End Date Provider, None [place] PCP - General 04/27/24 Mustapha Cárdenas MD [address] [place] [address] PCP - Hospice Attending Provider 04/28/24 07/18/24 documented as of this encounter
--- OUTSIDE RECORDS SUMMARY | 2024-08-13 04:54 | XMS_ITS | Encounter Summary ---
Author Organization [facility] Address [address] [place] [address] Phone Care Team Providers Care Furnace Hand Name Role Phone Provider, None Primary Care Provider Mustapha Hall MD Unavailable [phone] Reason for Visit * Auth/Cert (Routine) Specialty Diagnoses / Procedures Referred By Samira t Referred To Contact Referral ID Status Reason Start Date Expiration Date Visits Re quested Visits Authorized [id number] 1 1 Encounter Details Date Type Department Care Team (Latest Contact Info) Description 06/24/2024 10:00 AM ENTRY LEVEL ELECTRICAL ENGINEER Home Care Visit [facility] [address] [place] [address] Homa Bernabe RN [place] SN - HOSPICE HOME VISIT Social History Tobacco Use Types Packs/Day Years Used Date Smoking Tobacco: Never Assessed Sex and Gender Information Value Date Recorded Sex Assigned at Not on file Legal Sex Male 2:48 AM ENTRY LEVEL ELECTRICAL ENGINEER Gender Identity Not on file Sexual Orientation Not on file documented as of this encounter Last Filed Vital Signs Vital Sign Reading Time Taken Comments Blood Pressure 133/86 06/24/2024 10:15 AM ENTRY LEVEL ELECTRICAL ENGINEER Pulse 84 06/24/2024 10:15 AM ENTRY LEVEL ELECTRICAL ENGINEER Temperature 37 ??C (98.6 ??F) 06/24/2024 10:15 AM ENTRY LEVEL ELECTRICAL ENGINEER Respiratory Rate 16 06/24/2024 10:15 AM ENTRY LEVEL ELECTRICAL ENGINEER Oxygen Saturation 100% 06/24/2024 10:15 AM ENTRY LEVEL ELECTRICAL ENGINEER Inhaled Oxygen Concentration - - Weight - - Height - - Body Mass Index - - documented in this encounter Plan of Treatment Not on file documented as of this encounter Visit Diagnoses Not on filedocumented in this encounter Care Teams Furnace Hand Relationship Specialty Start Date End Date Provider, None [place] PCP - General 04/27/24 Mustapha Cárdenas MD [address] [place] [address] PCP - Hospice Attending Provider 04/28/24 07/18/24 documented as of this encounter
--- OUTSIDE RECORDS SUMMARY | 2024-08-13 04:54 | XMS_ITS | Encounter Summary ---
Author Organization [facility] Address [address] [place] [address] Phone Care Team Providers Care Pv Installer Tech Name Role Phone Provider, None Primary Care Provider Mustapha Hall MD Unavailable [phone] Reason for Visit * Auth/Cert (Routine) Specialty Diagnoses / Procedures Referred By Samira yu Referred To Contact Referral ID Status Reason Start Date Expiration Date Visits Re quested Visits Authorized [id number] 1 1 Encounter Details Date Type Department Care Team (Latest Contact Info) Description 06/20/2024 11:00 AM MAINTENANCE WORKER SWIMMING POOL Home Care Visit [facility] [address] [place] [address] Homa Bernabe RN [place] - HOSPICE HOME VISIT Social History Tobacco Use Types Packs/Day Years Used Date Smoking Tobacco: Never Assessed Sex and Gender Information Value Date Recorded Sex Assigned at Not on file Legal Sex Male 2:48 AM MAINTENANCE WORKER SWIMMING POOL Gender Identity Not on file Sexual Orientation Not on file documented as of this encounter Last Filed Vital Signs Vital Sign Reading Time Taken Comments Blood Pressure 111/74 06/20/2024 11:24 AM MAINTENANCE WORKER SWIMMING POOL Pulse 102 06/20/2024 11:24 AM MAINTENANCE WORKER SWIMMING POOL Temperature 36.4 ??C (97.5 ??F) 06/20/2024 11:[address] Respiratory Rate 16 06/20/2024 11:24 AM MAINTENANCE WORKER SWIMMING POOL Oxygen Saturation 95% 06/20/2024 11:24 AM MAINTENANCE WORKER SWIMMING POOL Inhaled Oxygen Concentration - - Weight - - Height - - Body Mass Index - - documented in this encounter Plan of Treatment Not on file documented as of this encounter Visit Diagnoses Not on filedocumented in this encounter Care Teams Pv Installer Tech Relationship Specialty Start Date End Date Provider, None [place] PCP - General 04/27/24 Mustapha Cárdenas MD [address] [place] [address] PCP - Hospice Attending Provider 04/28/24 07/18/24 documented as of this encounter
--- OUTSIDE RECORDS SUMMARY | 2024-08-13 04:54 | XMS_ITS | Encounter Summary ---
Author Organization [facility] Address [address] [place] [address] Phone Care Team Providers Care Fabric Pattern Grader Name Role Phone Provider, None Primary Care Provider Mustapha Hall MD Unavailable [phone] Reason for Visit * Auth/Cert (Routine) Specialty Diagnoses / Procedures Referred By Samira t Referred To Contact Referral ID Status Reason Start Date Expiration Date Visits Re quested Visits Authorized [id number] 1 1 Encounter Details Date Type Department Care Team (Late st Contact Info) Description 06/24/2024 [facility] [address] [place] [address] Homa Bernabe, RN [place] CASE COMMUNICATION Social History Tobacco Use Types Packs/Day Years Used Date Smoking Tobacco: Never Assessed Sex and Gender Information Value Date Recorded Sex Assigned at Not on file Legal Sex Male 2:48 AM ONCOLOGY TRANSPLANT NETWORK MANAGER Gender Identity Not on file Sexual Orientation Not on file documented as of this encounter Plan of Treatment Not on file documented as of this encounter Visit Diagnoses Not on filedocumented in this encounter Care Teams Fabric Pattern Grader Relationship Specialty Start Date End Date Provider, None [place] PCP - General 04/27/24 Mustapha Cárdenas MD [address] [place] [address] PCP - Hospice Attending Provider 04/28/24 07/18/24 documented as of this encounter
--- OUTSIDE RECORDS SUMMARY | 2024-08-13 04:54 | XMS_ITS | Encounter Summary ---
Author Organization [facility] Address [address] [place] [address] Phone Care Team Providers Care Emergency Man Name Role Phone Provider, None Primary Care Provider Mustapha Hall MD Unavailable [phone] Reason for Visit * Auth/Cert (Routine) Specialty Diagnoses / Procedures Referred By Samira yu Referred To Contact Referral ID Status Reason Start Date Expiration Date Visits Re quested Visits Authorized [id number] 1 1 Encounter Details Date Type Department Care Team (Latest Contact Info) Description 05/30/2024 11:00 AM CDT Home Care Visit [facility] [address] [place] [address] Homa Bernabe RN [place] - HOSPICE HOME VISIT Social History Tobacco Use Types Packs/Day Years Used Date Smoking Tobacco: Never Assessed Sex and Gender Information Value Date Recorded Sex Assigned at Not on file Legal Sex Male 2:48 AM SOIL ENGINEER Gender Identity Not on file Sexual Orientation Not on file documented as of this encounter Last Filed Vital Signs Vital Sign Reading Time Taken Comments Blood Pressure 105/67 05/30/2024 11:31 AM CDT Pulse 97 05/30/2024 11:31 AM CDT Temperature 36.4 ??C (97.5 ??F) 05/30/2024 11:31 AM C DT Respiratory Rate 16 05/30/2024 11:31 AM CDT Oxygen Saturation 91% 05/30/2024 11:31 AM CDT Inhaled Oxygen Concentration - - Weight - - Height - - Body Mass Index - - documented in this encounter Plan of Treatment Not on file documented as of this encounter Visit Diagnoses Not on filedocumented in this encounter Care Teams Emergency Man Relationship Specialty Start Date End Date Provider, None [place] PCP - General 04/27/24 Mustapha Cárdenas MD [address] [place] [address] PCP - Hospice Attending Provider 04/28/24 07/18/24 documented as of this encounter
--- OUTSIDE RECORDS SUMMARY | 2024-08-13 04:54 | XMS_ITS | Encounter Summary ---
Author Organization [facility] Care Team Providers Care Manager Pest Name Role Phone Provider, None Primary Care Provider Mustapha Hall MD Unavailable [phone] Encounter Details Date Type Department Care Team (Latest Contact Info) Description 05/30/2024 Travel Social History Tobacco Use Types Packs/Day Years Used Date Smoking Tobacco: Never Assessed Sex and Gender Information Value Date Recorded Sex Assigned at Not on file Legal Sex Male 2:48 AM FOOD ORDER DELIVERY RUNNER Gender Identity Not on file Sexual Orientation Not on file documented as of this encounter Plan of Treatment Not on file documented as of this encounter Visit Diagnoses Not on filedocumented in this encounter Care Teams Manager Pest Relationship Specialty Start Date End Date Provider, None [place] PCP - General 04/27/24 Mustapha Cárdenas MD [address] [place] [address] PCP - Hospice Attending Provider 04/28/24 07/18/24 documented as of this encounter
--- OUTSIDE RECORDS SUMMARY | 2024-08-13 04:54 | XMS_ITS | Encounter Summary ---
Author Organization [facility] Address [address] [place] [address] Phone Care Team Providers Care Teacher Of The Sight Impaired Name Role Phone Provider, None Primary Care Provider Mustapha Hall MD Unavailable [phone] Reason for Visit * Auth/Cert (Routine) Specialty Diagnoses / Procedures Referred By Samira yu Referred To Contact Referral ID Status Reason Start Date Expiration Date Visits Re quested Visits Authorized [id number] 1 1 Encounter Details Date Type Department Care Team (Latest Contact Info) Description 06/03/2024 11:00 AM CDT Home Care Visit [facility] [place] [facility] [address] [place] [address] Homa Bernabe RN [place] - HOSPICE HOME VISIT Social History Tobacco Use Types Packs/Day Years Used Date Smoking Tobacco: Never Assessed Sex and Gender Information Value Date Recorded Sex Assigned at Not on file Legal Sex Male 2:48 AM RAIL TRACTOR OPERATOR Gender Identity Not on file Sexual Orientation Not on file documented as of this encounter Last Filed Vital Signs Vital Sign Reading Time Taken Comments Blood Pressure 100/61 06/03/2024 11:01 AM CDT Pulse 76 06/03/2024 11:01 AM CDT Temperature 36.4 ??C (97.5 ??F) 06/03/2024 11:01 AM C DT Respiratory Rate 16 06/03/2024 11:01 AM CDT Oxygen Saturation 94% 06/03/2024 11:01 AM CDT Inhaled Oxygen Concentration - - Weight - - Height - - Body Mass Index - - documented in this encounter Plan of Treatment Not on file documented as of this encounter Visit Diagnoses Not on filedocumented in this encounter Care Teams Teacher Of The Sight Impaired Relationship Specialty Start Date End Date Provider, None [place] PCP - General 04/27/24 Mustapha Cárdenas MD [address] [place] [address] PCP - Hospice Attending Provider 04/28/24 07/18/24 documented as of this encounter
--- OUTSIDE RECORDS SUMMARY | 2024-08-13 04:54 | XMS_ITS | Encounter Summary ---
Author Organization [facility] Care Team Providers Care Pilot Boat Deckhand Name Role Phone Provider, None Primary Care Provider Mustapha Hall MD Unavailable Encounter Details Date Type Department Care Team (Latest Contact Info) Description 05/16/2024 Travel Social History Tobacco Use Types Packs/Day Years Used Date Smoking Tobacco: Never Assessed Sex and Gender Information Value Date Recorded Sex Assigned at Not on file Legal Sex Male 2:48 AM LEAD SOFTWARE ARCHITECT Gender Identity Not on file Sexual Orientation Not on file documented as of this encounter Plan of Treatment Not on file documented as of this encounter Visit Diagnoses Not on filedocumented in this encounter Care Teams Pilot Boat Deckhand Relationship Specialty Start Date End Date Provider, None [place] PCP - General 04/27/24 Mustapha Cárdenas MD [address] [place] [address] PCP - Hospice Attending Provider 04/28/24 07/18/24 documented as of this encounter
--- OUTSIDE RECORDS SUMMARY | 2024-08-13 04:54 | XMS_ITS | Encounter Summary ---
Author Organization [facility] Address [address] [place] [address] Phone Care Team Providers Care Pad Machine Offbearer Name Role Phone Provider, None Primary Care Provider Mustapha Hall MD Unavailable Encounter Details Date Type Department Care Team (Late st Contact Info) Description 06/18/2024 [facility] [address] [place] [address] Social History Tobacco Use Types Packs/Day Years Used Date Smoking Tobacco: Never Assessed Sex and Gender Information Value Date Recorded Sex Assigned at Not on file Legal Sex Male 2:48 AM DULSER Gender Identity Not on file Sexual Orientation Not on file documented as of this encounter Miscellaneous Notes * Hospice Plan of Care - Homa Bernabe RN - 07/02/2024 9:10 AM CST IDG Date: 07/02/24 Attendees: Dr Cárdenas, Yoanna Seaman, Homa Bernabe, Geoff Loera, Vlad Morris, Erika Marinelli, Noelle Ferguson, Vlad Morris Discussion Summary: Pt is alert to self with immediate, long- and short-term memory difficulties. Pt continues to pace off and, on all day, managed with Seroquel, risperidone, and lorazepam. Pts spouse stated that when pts Namenda script is empty she is not reordering it. Pt has been taking it for 8 years. Pt recently treated for suspected UTI and finished 5 days of Keflex. Pt has occasional incontinence and is wearing depends all the time now. Goals: For skin to remain free breakdown in the next 2 weeks. Changes in Services: None New Orders: Keflex BAKERY ASSISTANT Plan reviewed and updated: 07/02/24 Patient and Family agree with POC: Yes ER * Hospice Plan of Care - Vlad Morris - 07/02/2024 9:10 AM CST IDG Date: 07/02/24 Shift Leader checks in with pt and family monthly. Family had declined last visit. Shift Leader will continue to check in with pt as needed. Family reported that they have no needs at this time. ER documented in this encounter Plan of Treatment Not on file documented as of this encounter Visit Diagnoses Not on filedocumented in this encounter Care Teams Pad Machine Offbearer Relationship Specialty Start Date End Date Provider, None [place] PCP - General 04/27/24 Mustapha Cárdenas MD [address] [place] [address] PCP - Hospice Attending Provider 04/28/24 07/18/24 documented as of this encounter
--- OUTSIDE RECORDS SUMMARY | 2024-08-13 04:54 | XMS_ITS | Encounter Summary ---
Author Organization [facility] Address [address] [place] [address] Phone Care Team Providers Care Cut Off Saw Tender Metal Name Role Phone Provider, None Primary Care Provider Mustapha Hall MD Unavailable [phone] Reason for Visit * Auth/Cert (Routine) Specialty Diagnoses / Procedures Referred By Samira yu Referred To Contact Referral ID Status Reason Start Date Expiration Date Visits Re quested Visits Authorized [id number] 1 1 Encounter Details Date Type Department Care Team (Latest Contact Info) Description 05/30/2024 3:30 PM CDT [facility] [address] [place] [address] Earl Roblero CNA [place] [facility] - [facility]ICE VISIT Social History Tobacco Use Types Packs/Day Years Used Date Smoking Tobacco: Never Assessed Sex and Gender Information Value Date Recorded Sex Assigned at Not on file Legal Sex Male 2:48 AM CLERK SPECIALIST Gender Identity Not on file Sexual Orientation Not on file documented as of this encounter Plan of Treatment Not on file documented as of this encounter Visit Diagnoses Not on filedocumented in this encounter Hospice Visit - Care Plan Visit Details Visit Type -[facility] - HOSPICE Vi sit Discipline -Physiatrist Problems Problem Description Start Date Status Goals Interve ntions [facility] SERVICES Disciplines: Physiatrist 04/28/2024 Active 1 goal linked to scheduled/document ed intervention 1 goal intervention scheduled/document ed in this visit [facility] PROVIDE BATH Disciplines: Physiatrist 04/28/2024 Active - 1 problem intervention scheduled/document ed in this visit [facility] CARE PLAN Disciplines: Physiatrist [facility] Care Plan 04/28/2024 Active - 7 problem interventions scheduled/document ed in this visit [facility] CARE PLAN Disciplines: Physiatrist [facility] Care Plan 05/13/2024 Active - 1 [...] condition, complaints and safety concerns to the Broth Setter. Problem:[facility] SERVICES Goal:[facility] Care Plan Completed Evaluated for a change in medical condition, complaint of pain, safety concern or other issues. Issues identified no issues Communicated to Provide Bath Description: Bathe patient unless patient/caregiver [...] CARE PLAN Completed Precautions taken skin risks Perform Oral Care Description: Assist with oral care brush teeth unless patient/caregiver declines. Problem:[facility] CARE PLAN Completed Perform Hair Care Description: Provide hair care unless patient/caregiver declines. Problem:[facility] CARE PLAN Completed Assist With Dressing Description: Assist patient with dressing/undressing unless patient/caregiver declines. Problem:[facility] CARE PLAN Completed Communicate with Hedge Fund Principal Description: Communicate with fbi special agent as needed. Problem:[facility] CARE PLAN Completed Assist With Shaving Description: Shave patient unless patient/caregiver declines. Problem:[facility] CARE PLAN Completed documented in this encounter Care Teams Cut Off Saw Tender Metal Relationship Specialty Start Date End Date Provider, None [place] PCP - General 04/27/24 Mustapha Cárdenas MD [address] [place] [address] PCP - Hospice Attending Provider 04/28/24 07/18/24 documented as of this encounter
--- OUTSIDE RECORDS SUMMARY | 2024-08-13 04:54 | XMS_ITS | Encounter Summary ---
Author Organization [facility] Address [address] [place] [address] Phone Care Team Providers Care Tent Worker Name Role Phone Provider, None Primary Care Provider Mustapha Hall MD Unavailable [phone] Reason for Visit * Auth/Cert (Routine) Specialty Diagnoses / Procedures Referred By Samira yu Referred To Contact Referral ID Status Reason Start Date Expiration Date Visits Re quested Visits Authorized [id number] 1 1 Encounter Details Date Type Department Care Team (Latest Contact Info) Description 07/08/2024 1:00 PM ROD BUSTER [facility] [address] [place] [address] Earl Roblero CNA [place] [facility] - [facility]PICE VISIT Social History Tobacco Use Types Packs/Day Years Used Date Smoking Tobacco: Never Assessed Sex and Gender Information Value Date Recorded Sex Assigned at Not on file Legal Sex Male 2:48 AM ROD BUSTER Gender Identity Not on file Sexual Orientation Not on file documented as of this encounter Last Filed Vital Signs Vital Sign Reading Time Taken Comments Blood Pressure 138/80 07/08/2024 1:25 PM ROD BUSTER Pulse 100 07/08/2024 1:25 PM ROD BUSTER Temperature 37.1 ??C (98.7 ??F) 07/08/2024 1:25 PM CS T Respiratory Rate 16 07/08/2024 1:25 PM ROD BUSTER Oxygen Saturation 98% 07/08/2024 1:25 PM ROD BUSTER Inhaled Oxygen Concentration - - Weight - - Height - - Body Mass Index - - documented in this encounter Plan of Treatment Not on file documented as of this encounter Visit Diagnoses Not on filedocumented in this encounter Hospice Visit - Care Plan Visit Details Visit Type -[facility] - HOSPICE Vi sit Discipline -Editorial Manager Problems Problem Description Start Date Status Goals Interve ntions [facility] SERVICES Disciplines: Editorial Manager 04/28/2024 Active 1 goal linked to scheduled/document ed intervention 1 goal intervention scheduled/document ed in this visit [facility] PROVIDE BATH Disciplines: Editorial Manager 04/28/2024 Active - 1 problem intervention scheduled/document ed in this visit [facility] CARE PLAN Disciplines: Editorial Manager [facility] Care Plan 04/28/2024 Active - 7 problem interventions scheduled/document ed in this visit [facility] CARE PLAN Disciplines: Editorial Manager [facility] Care Plan 05/13/2024 Active - 1 [...] condition, complaints and safety concerns to the Tire And Lube Technician. Problem:[facility] SERVICES Goal:[facility] Care Plan Completed Evaluated for a change in medical condition, complaint of pain, safety concern or other issues. Issues identified none. Communicated to Provide Bath Description: Bathe patient [...] declines. Problem:[facility] CARE PLAN Completed Communicate with Hr Business Partner Consultant Description: Communicate with derivatives trader as needed. Problem:[facility] CARE PLAN Completed Assist With Shaving Description: Shave patient unless patient/caregiver declines. Problem:[facility] CARE PLAN Completed documented in this encounter Care Teams Tent Worker Relationship Specialty Start Date End Date Provider, None [place] PCP - General 04/27/24 Mustapha Cárdenas MD [address] [place] [address] PCP - Hospice Attending Provider 04/28/24 07/18/24 documented as of this encounter
--- OUTSIDE RECORDS SUMMARY | 2024-08-13 04:54 | XMS_ITS | Encounter Summary ---
Author Organization [facility] Care Team Providers Care Hedge Fund Manager Name Role Phone Provider, None Primary Care Provider Mustapha Hall MD Unavailable [phone] Encounter Details Date Type Department Care Team (Latest Contact Info) Description 06/17/2024 Travel Social History Tobacco Use Types Packs/Day Years Used Date Smoking Tobacco: Never Assessed Sex and Gender Information Value Date Recorded Sex Assigned at Not on file Legal Sex Male 2:48 AM DISPUTE RESOLUTION ANALYST Gender Identity Not on file Sexual Orientation Not on file documented as of this encounter Plan of Treatment Not on file documented as of this encounter Visit Diagnoses Not on filedocumented in this encounter Care Teams Hedge Fund Manager Relationship Specialty Start Date End Date Provider, None [place] PCP - General 04/27/24 Mustapha Cárdenas MD [address] [place] [address] PCP - Hospice Attending Provider 04/28/24 07/18/24 documented as of this encounter
--- OUTSIDE RECORDS SUMMARY | 2024-08-13 04:54 | XMS_ITS | Encounter Summary ---
Author Organization [facility] Address [address] [place] [address] Phone Care Team Providers Care Prism Inspector Name Role Phone Provider, None Primary Care Provider Mustapha Hall MD Unavailable Encounter Details Date Type Department Care Team (Late st Contact Info) Description 07/02/2024 [facility] [address] [place] [address] Social History Tobacco Use Types Packs/Day Years Used Date Smoking Tobacco: Never Assessed Sex and Gender Information Value Date Recorded Sex Assigned at Not on file Legal Sex Male 2:48 AM SERVICES ACCOUNT MANAGER Gender Identity Not on file Sexual Orientation Not on file documented as of this encounter Miscellaneous Notes * Hospice Plan of Care - Homa Bernabe RN - 07/16/2024 10:10 AM CST IDG Date: 07/16/24 Attendees: Dr Cárdenas, Murtaza Ballard, Yoanna Seaman, Homa Bernabe, Geoff Loera, Guadalupe Blas, Erika Marinelli, Vlad Morris, Sammy Jiménez, Earl Roblero, Cecilia Fung, Anny Villafana Discussion Summary: Pt is alert to self with immediate, long and short term memory difficulties. Pthas occasional back pain from sitting straight up for too long managed with rest and tylenol. Pts appetite remains good, he asks for something to eat every 1 and a half to 2 hours. Pt continues to pace during the day managed with risperidone and seroquel. Pt sleeps well at night managed with lorazepam. Goals: : For symptoms of dementia to be managed with medication and reminders the next two weeks. Changes in Services: None New Orders: None GAS FLOW REGULATOR Plan reviewed and updated: 07/16/24 Patient and Family agree with POC: Yes ICES ACCOUNT MANAGER * Hospice Plan of Care - Vlad Morris - 07/16/2024 10:10 AM CST Family declined last visit, but reported pt moving into a memory care facility. ICES ACCOUNT MANAGER documented in this encounter Plan of Treatment Not on file documented as of this encounter Visit Diagnoses Not on filedocumented in this encounter Care Teams Prism Inspector Relationship Specialty Start Date End Date Provider, None [place] PCP - General 04/27/24 Mustapha Cárdenas MD [address] [place] [address] PCP - Hospice Attending Provider 04/28/24 07/18/24 documented as of this encounter
--- OUTSIDE RECORDS SUMMARY | 2024-08-13 04:54 | XMS_ITS | Encounter Summary ---
Author Organization [facility] Address [address] [place] [address] Phone Care Team Providers Care Event Av Operator Name Role Phone Provider, None Primary Care Provider Mustapha Hall MD Unavailable [phone] Reason for Visit * Auth/Cert (Routine) Specialty Diagnoses / Procedures Referred By Samira yu Referred To Contact Referral ID Status Reason Start Date Expiration Date Visits Re quested Visits Authorized [id number] 1 1 Encounter Details Date Type Department Care Team (Latest Contact Info) Description 05/22/2024 1:00 PM CDT [facility] [address] [place] [address] Earl Roblero CNA [place] [facility] - [facility]PICE VISIT Social History Tobacco Use Types Packs/Day Years Used Date Smoking Tobacco: Never Assessed Sex and Gender Information Value Date Recorded Sex Assigned at Not on file Legal Sex Male 2:48 AM MANAGER RESEARCH DEVELOPMENT Gender Identity Not on file Sexual Orientation Not on file documented as of this encounter Last Filed Vital Signs Vital Sign Reading Time Taken Comments Blood Pressure 108/74 05/22/2024 1:05 PM CDT Pulse 90 05/22/2024 1:05 PM CDT Temperature 36.4 ??C (97.6 ??F) 05/22/2024 1:05 PM CD T Respiratory Rate 18 05/22/2024 1:05 PM CDT Oxygen Saturation - - Inhaled Oxygen Concentration - - Weight - - Height - - Body Mass Index - - documented in this encounter Plan of Treatment Not on file documented as of this encounter Visit Diagnoses Not on filedocumented in this encounter Hospice Visit - Care Plan Visit Details Visit Type -[facility] - HOSPICE Vi sit Discipline -Metal Coater Problems Problem Description Start Date Status Goals Interve ntions [facility] SERVICES Disciplines: Metal Coater 04/28/2024 Active 1 goal linked to scheduled/document ed intervention 1 goal intervention scheduled/document ed in this visit [facility] PROVIDE BATH Disciplines: Metal Coater 04/28/2024 Active - 1 problem intervention scheduled/document ed in this visit [facility] CARE PLAN Disciplines: Metal Coater [facility] Care Plan 04/28/2024 Active - 7 problem interventions scheduled/document ed in this visit [facility] CARE PLAN Disciplines: Metal Coater [facility] Care Plan 05/13/2024 Active - 1 [...] condition, complaints and safety concerns to the A P Manager. Problem:[facility] SERVICES Goal:[facility] Care Plan Completed [...] declines. Problem:[facility] CARE PLAN Completed Communicate with Supervisor Remelt Description: Communicate with inside contractor sales as needed. Problem:[facility] CARE PLAN Completed Assist With Shaving Description: Shave patient unless patient/caregiver declines. Problem:[facility] CARE PLAN Completed documented in this encounter Care Teams Event Av Operator Relationship Specialty Start Date End Date Provider, None [place] PCP - General 04/27/24 Mustapha Cárdenas MD [address] [place] [address] PCP - Hospice Attending Provider 04/28/24 07/18/24 documented as of this encounter
--- OUTSIDE RECORDS SUMMARY | 2024-08-13 04:54 | XMS_ITS | Encounter Summary ---
Author Organization [facility] Address [address] [facility] 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
--- OUTSIDE RECORDS SUMMARY | 2024-08-13 04:54 | XMS_ITS | Encounter Summary ---
Author Organization [facility] Address [address] [place] [address] Phone Care Team Providers Care [employer] Team Member Name Role Phone Provider, None Primary Care Provider Mustapha Hall MD Unavailable [phone] Reason for Visit * Auth/Cert (Routine) Specialty Diagnoses / Procedures Referred By Samira t Referred To Contact Referral ID Status Reason Start Date Expiration Date Visits Re quested Visits Authorized [id number] 1 1 Encounter Details Date Type Department Care Team (Late st Contact Info) Description 07/07/2024 [facility] [address] [place] [address] Homa Bernabe, RN [place] CASE COMMUNICATION Social History Tobacco Use Types Packs/Day Years Used Date Smoking Tobacco: Never Assessed Sex and Gender Information Value Date Recorded Sex Assigned at Not on file Legal 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
--- OUTSIDE RECORDS SUMMARY | 2024-08-13 04:54 | XMS_ITS | Encounter Summary ---
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
--- OUTSIDE RECORDS SUMMARY | 2024-08-13 04:54 | XMS_ITS | Encounter Summary ---
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
--- OUTSIDE RECORDS SUMMARY | 2024-08-13 04:54 | XMS_ITS | Encounter Summary ---
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
--- OUTSIDE RECORDS SUMMARY | 2024-08-13 04:54 | XMS_ITS | Encounter Summary ---
Author Organization [facility] Address [address] [place] [address] Phone Care Team Providers Care Microfilm Clerk Name Role Phone Provider, None Primary Care Provider Mustapha Hall MD Unavailable Reason for Visit * Auth/Cert (Routine) Specialty Diagnoses / Procedures Referred By Samira uy Referred To Contact Referral ID Status Reason Start Date Expiration Date Visits Re quested Visits Authorized [id number] 1 1 Encounter Details Date Type Department Care Team (Latest Contact Info) Description 05/27/2024 11:00 AM CDT [facility] [address] [place] [address] Homa Bernabe RN [place] SN - HOSPICE HOME VISIT Social History Tobacco Use Types Packs/Day Years Used Date Smoking Tobacco: Never Assessed Sex and Gender Information Value Date Recorded Sex Assigned at Not on file 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 Gender Identity Not on file Sexual Orientation Not on file documented as of this encounter Last Filed Vital Signs Vital Sign Reading Time Taken Comments Blood Pressure 156/84 05/27/2024 11:11 AM CDT Pulse 71 05/27/2024 11:11 AM CDT Temperature 36.4 ??C (97.5 ??F) 05/27/2024 11:11 AM C DT Respiratory Rate 16 05/27/2024 11:11 AM CDT Oxygen Saturation 100% 05/27/2024 11:11 AM CDT Inhaled Oxygen Concentration - - Weight - - Height - - Body Mass Index - - documented in this encounter Plan of Treatment Not on file documented as of this encounter Visit Diagnoses Not on filedocumented in this encounter Care Teams Microfilm Clerk Relationship Specialty Start Date End Date Provider, None [place] PCP - General 04/27/24 Mustapha Cárdenas MD [address] [place] [address] PCP - Hospice Attending Provider 04/28/24 07/18/24 documented as of this encounter
--- OUTSIDE RECORDS SUMMARY | 2024-08-13 04:54 | XMS_ITS | Encounter Summary ---
Author Organization [facility] Address [address] [place] [address] Phone Care Team Providers Care Media Theorist And Author Of Name Role Phone Provider, None Primary Care Provider Mustapha Hall MD Unavailable [phone] Reason for Visit * Auth/Cert (Routine) Specialty Diagnoses / Procedures Referred By Samira yu Referred To Contact Referral ID Status Reason Start Date Expiration Date Visits Re quested Visits Authorized [id number] 1 1 Encounter Details Date Type Department Care Team (Latest Contact Info) Description 07/01/2024 1:00 PM CLIMATE CHANGE ANALYST [facility] [address] [place] [address] Earl Roblero CNA [place] [facility] - [facility]PICE VIS[facility] Social History Tobacco Use Types Packs/Day Years Used Date Smoking Tobacco: Never Assessed Sex and Gender Information Value Date Recorded Sex Assigned at Not on file Legal Sex Male 2:48 AM CLIMATE CHANGE ANALYST Gender Identity Not on file Sexual Orientation Not on file documented as of this encounter Last Filed Vital Signs Vital Sign Reading Time Taken Comments Blood Pressure 97/71 07/01/2024 1:50 PM CLIMATE CHANGE ANALYST Pulse 100 07/01/2024 1:50 PM CLIMATE CHANGE ANALYST Temperature - - Respiratory Rate 18 07/01/2024 1:50 PM CLIMATE CHANGE ANALYST Oxygen Saturation 97% 07/01/2024 1:50 PM CLIMATE CHANGE ANALYST Inhaled Oxygen Concentration - - Weight - - Height - - Body Mass Index - - documented in this encounter Plan of Treatment Not on file documented as of this encounter Visit Diagnoses Not on filedocumented in this encounter Hospice Visit - Care Plan Visit Details Visit Type -[facility] - HOSPICE Vi sit Discipline -Tile Classifier Problems Problem Description Start Date Status Goals Interve ntions [facility] SERVICES Disciplines: Tile Classifier 04/28/2024 Active 1 goal linked to scheduled/document ed intervention 1 goal intervention scheduled/document ed in this visit [facility] PROVIDE BATH Disciplines: Tile Classifier 04/28/2024 Active - 1 problem intervention scheduled/document ed in this visit [facility] CARE PLAN Disciplines: Tile Classifier [facility] Care Plan 04/28/2024 Active - 7 problem interventions scheduled/document ed in this visit [facility] CARE PLAN Disciplines: Tile Classifier [facility] Care Plan 05/13/2024 Active - 1 [...] condition, complaints and safety concerns to the Mouse Breeder. Problem:[facility] SERVICES Goal:[facility] Care Plan Completed Evaluated for a change in medical condition, complaint of pain, safety concern or other issues. Issues identified none Communicated to CM Provide Bath Description: Bathe [...] PLAN Completed Precautions taken skin risk and falls. Perform Oral Care Description: Assist with oral care brush teeth unless patient/caregiver declines. Problem:[facility] CARE PLAN Completed Perform Hair Care Description: Provide hair care unless patient/caregiver declines. Problem:[facility] CARE PLAN Completed Assist With Dressing Description: Assist patient with dressing/undressing unless patient/caregiver declines. Problem:[facility] CARE PLAN Completed Communicate with Guard Sergeant Description: Communicate with manager primary as needed. Problem:[facility] CARE PLAN Completed Assist With Shaving Description: Shave patient unless patient/caregiver declines. Problem:[facility] CARE PLAN Completed documented in this encounter Care Teams Media Theorist And Author Of Relationship Specialty Start Date End Date Provider, None [place] PCP - General 04/27/24 Mustapha Cárdenas MD [address] [place] [address] PCP - Hospice Attending Provider 04/28/24 07/18/24 documented as of this encounter
--- OUTSIDE RECORDS SUMMARY | 2024-08-13 04:54 | XMS_ITS | Encounter Summary ---
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
--- OUTSIDE RECORDS SUMMARY | 2024-08-13 04:54 | XMS_ITS | Encounter Summary ---
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
--- OUTSIDE RECORDS SUMMARY | 2024-08-13 04:54 | XMS_ITS | Encounter Summary ---
Author Organization [facility] Address [address] [place] [address] Phone Care Team Providers Care Bed Machine Operator Name Role Phone Provider, None Primary Care Provider Mustapha Hall MD Unavailable [phone] Reason for Visit * Auth/Cert (Routine) Specialty Diagnoses / Procedures Referred By Samira t Referred To Contact Referral ID Status Reason Start Date Expiration Date Visits Re quested Visits Authorized [id number] 1 1 Encounter Details Date Type Department Care Team (Latest Contact Info) Description 07/04/2024 11:00 AM PROCESS 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 [facility] [address] [place] [address] Homa Bernabe RN [place] SN - HOSPICE HOME VISIT Social History Tobacco Use Types Packs/Day Years Used Date Smoking Tobacco: Never Assessed Sex and Gender Information Value Date Recorded Sex Assigned at Not on file Legal Sex Male 2:48 AM PROCESS 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 Gender Identity Not on file Sexual Orientation Not on file documented as of this encounter Last Filed Vital Signs Vital Sign Reading Time Taken Comments Blood Pressure 120/66 07/04/2024 11:25 AM PROCESS 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 Pulse 83 07/04/2024 11:25 AM PROCESS 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 Temperature 36.4 ??C (97.5 ??F) 07/04/2024 11:[address] Respiratory Rate 16 07/04/2024 11:25 AM PROCESS 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 Oxygen Saturation 94% 07/04/2024 11:25 AM PROCESS 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 Inhaled Oxygen Concentration - - Weight - - Height - - Body Mass Index - - documented in this encounter Plan of Treatment Not on file documented as of this encounter Visit Diagnoses Not on filedocumented in this encounter Care Teams Bed Machine Operator Relationship Specialty Start Date End Date Provider, None [place] PCP - General 04/27/24 Mustapha Cárdenas MD [address] [place] [address] PCP - Hospice Attending Provider 04/28/24 07/18/24 documented as of this encounter
--- OUTSIDE RECORDS SUMMARY | 2024-08-13 04:54 | XMS_ITS | Clinical Summary ---
Author Organization [facility] Address [address] [address] Phone Care Team Providers Care Weaving Professor Name Role Phone Provider, None Primary Care Provider Unavailabl e Allergies No known active allergies Medications acetaminophen (TYLENOL) 650 MG Suppository 650 mg by Rectal route every 6 hours as needed for Fever or Mild or more severe pain. Insert 1 suppository in rectum every 6 hours as needed for fever/mild to more severe pain. 4 Active bisacodyl 10 MG Suppository 10 mg by Rectal route as needed for Constipation - 1st line. Insert 1 suppository in rectum once daily as needed for constipation. 4 Active prochlorperazin e (COMPAZINE) 10 MG Tablet Take 10 mg by mouth every 6 hours as needed for Nausea - 1st line. Take 1 tablet by mouth every 6 hours as needed for nausea. 4 Active haloperidol (HALDOL) 2 MG/ML Concentrate Take 1 mg by mouth every 6 hours as needed for Agitation (restlessness). Take 1mg (0.5mL) by mouth every 6 hours as needed for agitation/restle ssness. 4 Active hyoscyamine (LEVSIN SL) 0.125 MG SL Tablet 125 mcg by Sublingual route every 4 hours as needed for Other (increased secretions.). Place 1 table under tongue every 4 hours as needed for increased secretions. 4 Active donepezil (ARICEPT) 10 MG Tablet Take 10 mg by mouth daily after breakfast. Take 1 tablet by mouth each morning after breakfast. 4 Active memantine (NAMENDA) 10 MG Tablet Take 10 mg by mouth daily. Take 1 tablet by mouth once daily. 4 Active QUEtiapine Fumarate (SEROquel) 50 MG Tablet Take 100 mg by mouth 3 times daily. Take 2 tablet by mouth twice daily and 3 tablets for evening dose. 4 Active morphine 100 MG/5ML SolutionIndicat ions:Terminal care Take 0.25 mL by mouth every 3 hours as needed for Moderate or more severe pain or Air Hunger. 30 mL 4 Active polyethylene glycol (MiraLax) 17 GM/SCOOP Powder Take 17 g by mouth as needed for Constipation - 1st line. Mix 1 capful with 8ounces of liquid and drink once daily as needed for constipation. 4 Active risperiDONE (RISPERDAL) 1 MG TabletIndicatio ns:Behavioral Disorders associated with Dementia Take 1 mg by mouth 2 times daily. Take 1 tablet by mouth twice daily. Indications: Behavioral Disorders associated with Dementia 4 Active citalopram (CeleXA) 20 MG Tablet Take 20 mg by mouth daily. Take 1 tablet by mouth once daily. 4 Active LORazepam (ATIVAN) 0.5 MG TabletIndicatio ns:Terminal care Take 1 Tablet by mouth nightly. 30 Tablet 5 4 Active Encounters Date Type Department Care Team Description 07/18/2024 11:00 AM RUBBER PRODUCTION MACHINE OPERATOR Home Care Visit [address] [address] Homa Bernabe RN SN - HOSPICE DISCHARGE 07/15/2024 1:00 PM RUBBER PRODUCTION MACHINE OPERATOR Home Care Visit [address] [address] Earl Roblero CNA [facility] - HOSPICE VISIT 07/15/2024 11:00 AM RUBBER PRODUCTION MACHINE OPERATOR Home Care Visit [address] [address] Homa Bernabe RN SN - HOSPICE HOME VISIT 07/15/2024 Travel 07/12/2024 Plan of Care Documentation [address] [address] 07/11/2024 1:00 PM RUBBER PRODUCTION MACHINE OPERATOR Home Care Visit [address] [address] Tyoa Fung CNA [facility] - HOSPICE VISIT 07/11/2024 Home Care Visit [address] [address] Homa Bernabe, RN CASE COMMUNICATION 07/09/2024 1:00 PM RUBBER PRODUCTION MACHINE OPERATOR Home Care Visit [address] [address] Homa Bernabe, RN SN - HOSPICE HOME VISIT 07/09/2024 Lab Requisition [facility] [address] [place] [address] Mustapha Cárdenas MD 07/08/2024 1:00 PM RUBBER PRODUCTION MACHINE OPERATOR Home Care Visit [address] [address] Earl Roblero CNA [facility] - HOSPICE VISIT 07/07/2024 Home Care Visit [address] [address] Homa Bernabe, RN CASE COMMUNICATION 07/04/2024 1:00 PM RUBBER PRODUCTION MACHINE OPERATOR Home Care Visit [address] [address] Earl Roblero CNA [facility] - HOSPICE VISIT 07/04/2024 11:00 AM RUBBER PRODUCTION MACHINE OPERATOR Home Care Visit [address] [address] Homa Bernabe, RN SN - HOSPICE HOME VISIT 07/04/2024 Travel 07/02/2024 11:00 AM RUBBER PRODUCTION MACHINE OPERATOR [facility] [address] [place] [address] Homa Bernabe, RN SN - HOSPICE HOME VISIT 07/02/2024 Plan of Care Documentation [address] [address] 07/02/2024 Travel 07/01/2024 1:00 PM RUBBER PRODUCTION MACHINE OPERATOR Home Care Visit [address] [address] Earl Roblero CNA [facility] - HOSPICE VISIT 06/28/2024 11:00 AM RUBBER PRODUCTION MACHINE OPERATOR [facility] [address] [place] [address] Homa Bernabe, RN SN - HOSPICE HOME VISIT 06/28/2024 Travel 06/27/2024 [facility] [address] [place] [address] Homa Bernabe, RN CASE COMMUNICATION 06/26/2024 1:00 PM RUBBER PRODUCTION MACHINE OPERATOR [facility] [address] [place] [address] Earl Roblero CNA [facility] - HOSPICE VISIT 06/25/2024 Lab Requisition [facility] [address] [place] [address] Yael Cárdenas DO 06/24/2024 10:00 AM RUBBER PRODUCTION MACHINE OPERATOR Home Care Visit [address] [address] Homa Bernabe, RN SN - HOSPICE HOME VISIT 06/24/2024 [facility] [address] [place] [address] Homa Bernabe, RN 06/24/2024 Travel 06/24/2024 Home Care Visit [address] [address] Homa Bernabe, RN CASE COMMUNICATION 06/20/2024 11:00 AM RUBBER PRODUCTION MACHINE OPERATOR [facility] [address] [place] [address] Homa Bernabe, RN SN - HOSPICE HOME VISIT 06/19/2024 1:00 PM RUBBER PRODUCTION MACHINE OPERATOR Home Care Visit [address] [address] Earl Roblero CNA [facility] - HOSPICE VISIT 06/18/2024 Plan of Care Documentation [address] [address] 06/17/2024 10:00 AM RUBBER PRODUCTION MACHINE OPERATOR Home Care Visit [address] [address] Homa Bernabe, TOBI SN - HOSPICE HOME VISIT 06/17/2024 Travel 06/11/2024 11:00 AM CDT [facility] [address] [place] [address] Homa Bernabe, RN SN - HOSPICE HOME VISIT 06/11/2024 Travel 06/06/2024 11:00 AM CDT [facility] [address] [place] [address] Homa Bernabe, RN SN - HOSPICE HOME VISIT 06/06/2024 Travel 06/05/2024 1:00 PM CDT [facility] [address] [place] [address] Earl Roblero CNA [facility] - HOSPICE VISIT 06/04/2024 Plan of Care Documentation [address] [address] 06/04/2024 [facility] [address] [place] [address] Vlad Morris TELEPHONE ENCOUNTER 06/03/2024 11:00 AM CDT [facility] [address] [place] [address] Homa Bernabe, RN SN - HOSPICE HOME VISIT 06/03/2024 Travel 05/30/2024 3:30 PM CDT [facility] [address] [place] [address] Earl Roblero CNA [facility] - HOSPICE VISIT 05/30/2024 11:00 AM CDT [facility] [address] [place] [address] Homa Bernabe, RN SN - HOSPICE HOME VISIT 05/30/2024 Travel 05/27/2024 11:00 AM CDT [facility] [address] [place] [address] Homa Bernabe, RN SN - HOSPICE HOME VISIT 05/27/2024 Travel 05/23/2024 11:00 AM CDT Home Care Visit [address] [address] Homa Bernabe, RN SN - HOSPICE HOME VISIT 05/23/2024 Travel 05/22/2024 1:00 PM CDT Home Care Visit [address] [address] Earl Roblero CNA [facility] - HOSPICE VISIT 05/21/2024 11:00 AM CDT Home Care Visit [address] [address] Homa Bernabe, RN SN - HOSPICE HOME VISIT 05/21/2024 Plan of Care Documentation [address] [address] 05/21/[address] [address] Homa Bernabe, RN 05/21/2024 Travel 05/16/2024 11:00 AM CDT Home Care Visit [address] [address] Homa Bernabe, RN SN - HOSPICE HOME VISIT 05/16/2024 Travel 05/15/2024 1:00 PM CDT Home Care Visit [address] [address] Earl Roblero CNA [facility] - HOSPICE VISIT 05/13/2024 11:00 AM CDT Home Care Visit [address] [address] Homa Bernabe, RN SN - HOSPICE HOME VISIT 05/13/[address] [address] Homa Bernabe, RN 05/13/2024 Travel from Last 3 Months Social History Tobacco Use Types Packs/Day Years Used Date Smoking Tobacco: Never Assessed Sex and Gender Information Value Date Recorded Sex Assigned at Not on file Legal Sex Male 2:48 AM RUBBER PRODUCTION MACHINE OPERATOR Gender Identity Not on file Sexual Orientation Not on file Last Filed Vital Signs Vital Sign Reading Time Taken Comments Blood Pressure 122/86 07/15/2024 2:00 PM RUBBER PRODUCTION MACHINE OPERATOR Pulse 90 07/15/2024 2:00 PM RUBBER PRODUCTION MACHINE OPERATOR Temperature 36.6 ??C (97.8 ??F) 07/15/2024 2:00 PM CS T Respiratory Rate 18 07/15/2024 2:00 PM RUBBER PRODUCTION MACHINE OPERATOR Oxygen Saturation 96% 07/15/2024 11:02 AM RUBBER PRODUCTION MACHINE OPERATOR Inhaled Oxygen Concentration - - Weight - - Height - - Body Mass Index - - Plan of Treatment Health Maintenance Due Date Last Done Comments Hepatitis C Virus (HCV) Screening 1958 Colonoscopy 2003 Colorectal Cancer Screening 2003 Cologuard 2008 Immunochemical Fecal Occult Blood 2008 Pneumococcal Immunization (50+ years) (1 of 1 - PCV) 2008 Zoster Immunization (1 of 2) 2008 PSA Discussion 2013 Influenza Immunization (#1) 2024 10/0 01/2022, 06/20/2018, 05/02/2016, Additional history exists SARS-COV-2 Immunization (3 - season) 2024 12/09/2020, 11/03/2020 Respiratory Syncytial Virus (RSV) Immunization (Adult) (1 - 1-dose 75+ series) 2033 TdaP Immunization Completed 04/20/2008 Hepatitis B Immunization Aged Out No longer eligible based on patient's age to complete this topic Meningococcal Immunization (ACWY) Aged Out No longer eligible based on patient's age to complete this topic Rotavirus Immunization Aged Out No lo nger eligible based on patient's age to complete this topic Procedures Procedure Name Priority Date/Time Associated Diagnosis Comments CULTURE, URINE Routine 07/09/2024 4:00 AM RUBBER PRODUCTION MACHINE OPERATOR CULTURE, URINE Routine 06/25/2024 9:48 AM RUBBER PRODUCTION MACHINE OPERATOR from Last 3 Months Results * CULTURE, URINE (07/09/2024 4:00 AM RUBBER PRODUCTION MACHINE OPERATOR) Only the most recent of2 resultswithin the time period is included. CULTURE RESULTS Mixed Growth of One or More Distal Urethral Contaminants 07/11/2024 12:38 AM RUBBER PRODUCTION MACHINE OPERATOR [facility] Culture URINE SPECIMEN / Unknown Non-Phlebotomy Collection / Unknown 07/09/2024 4:00 AM RUBBER PRODUCTION MACHINE OPERATOR 07/09/2024 2:39 PM RUBBER PRODUCTION MACHINE OPERATOR us Mustapha Cárdenas MD MICROBIOLOGY - GENERAL O RDERABLES Final Result [facility] [address] [place] [address], [place] from Last 3 Months Insurance MEDICARE Advance Directives Documents on File Type Date Recorded Patient Acidizer Helper Expl anation POLST/POST/FL DNR 05/07/2024 10:06 AM POLS T 04/28/24 Power of Small Parts Shaper Operator for Health Care 04/28/2024 4:21 PM poa 12/10/09 * No CPR-Comfort Focused Treatment (Latest Code Status on File) Date Activated Date Inactivated Comments 04/28/2024 5:48 PM POLST signed b y spouse/POA not yet signed by Dr Cárdenas. Healthcare Agents on File Name Relationship Healthcare Agent Relationshi p Communication Mirian Alvarezters Spouse Healthcare POA Care Teams Weaving Professor Relationship Specialty Start Date End Date Provider, None [place] PCP - General 04/27/24
--- OUTSIDE RECORDS SUMMARY | 2024-08-13 04:54 | XMS_ITS | Encounter Summary ---
Author Organization [facility] Address [address] [place] [address] Phone Care Team Providers Care Grocery Clerk Marking Name Role Phone Provider, None Primary Care Provider Mustapha Hall MD Unavailable [phone] Reason for Visit * Auth/Cert (Routine) Specialty Diagnoses / Procedures Referred By Samira yu Referred To Contact Referral ID Status Reason Start Date Expiration Date Visits Re quested Visits Authorized [id number] 1 1 Encounter Details Date Type Department Care Team (Latest Contact Info) Description 06/05/2024 1:00 PM CDT [facility] [address] [place] [address] Earl Roblero CNA [place] [facility] - H[facility]PICE VISIT Social History Tobacco Use Types Packs/Day Years Used Date Smoking Tobacco: Never Assessed Sex and Gender Information Value Date Recorded Sex Assigned at Not on file Legal Sex Male 2:[address] REPOR[address] Gender Identity Not on file Sexual Orientation Not on file documented as of this encounter Last Filed Vital Signs Vital Sign Reading Time Taken Comments Blood Pressure 130/72 06/05/2024 1:40 PM CDT Pulse 98 06/05/2024 1:40 PM CDT Temperature - - Respiratory Rate 18 06/05/2024 1:40 PM CDT Oxygen Saturation - - Inhaled Oxygen Concentration - - Weight - - Height - - Body Mass Index - - documented in this encounter Plan of Treatment Not on file documented as of this encounter Visit Diagnoses Not on filedocumented in this encounter Hospice Visit - Care Plan Visit Details Visit Type -[facility] - HOSPICE Vi sit Discipline -Jewel Waxer Problems Problem Description Start Date Status Goals Interve ntions [facility] SERVICES Disciplines: Jewel Waxer 04/28/2024 Active 1 goal linked to scheduled/document ed intervention 1 goal intervention scheduled/document ed in this visit [facility] PROVIDE BATH Disciplines: Jewel Waxer 04/28/2024 Active - 1 problem intervention scheduled/document ed in this visit [facility] CARE PLAN Disciplines: Jewel Waxer [facility] Care Plan 04/28/2024 Active - 7 problem interventions scheduled/document ed in this visit [facility] CARE PLAN Disciplines: Jewel Waxer [facility] Care Plan 05/13/2024 Active - 1 [...] condition, complaints and safety concerns to the Cloth Shrinking Machine Operator. Problem:[facility] SERVICES Goal:[facility] Care Plan Completed Evaluated for a change in medical condition, complaint of pain, safety concern or other issues. Issues identified no issues. Communicated to Provide Bath Description: Bathe patient [...] declines. Problem:[facility] CARE PLAN Completed Communicate with Motor Runner Description: Communicate with fingerprint technician as needed. Problem:[facility] CARE PLAN Completed Assist With Shaving Description: Shave patient unless patient/caregiver declines. Problem:[facility] CARE PLAN Completed documented in this encounter Care Teams Grocery Clerk Marking Relationship Specialty Start Date End Date Provider, None [place] PCP - General 04/27/24 Mustapha Cárdenas MD [address] [place] [address] PCP - Hospice Attending Provider 04/28/24 07/18/24 documented as of this encounter
--- OUTSIDE RECORDS SUMMARY | 2024-08-13 04:54 | XMS_ITS | Encounter Summary ---
Author Organization [facility] Address [address] [facility] [place] [address] Phone Care Team Providers Care Energy Conservation Representative Name Role Phone Provider, None Primary Care Provider Mustapha Hall MD Unavailable [phone] Reason for Visit * Auth/Cert (Routine) Specialty Diagnoses / Procedures Referred By Samira t Referred To Contact Referral ID Status Reason Start Date Expiration Date Visits Re quested Visits Authorized [id number] 1 1 Encounter Details Date Type Department Care Team (Late st Contact Info) Description 06/04/2024 [facility] [address] [place] [address] Vlad Morris [place] TELEPHONE ENCOUNTER Social History Tobacco Use Types Packs/Day Years Used Date Smoking Tobacco: Never Assessed Sex and Gender Information Value Date Recorded Sex Assigned at Not on file Legal Sex Male 2:48 AM FLOWER MACHINE OPERATOR Gender Identity Not on file Sexual Orientation Not on file documented as of this encounter Plan of Treatment Not on file documented as of this encounter Visit Diagnoses Not on filedocumented in this encounter Hospice Visit - Actions and Narratives Actions Market Research Interviewer contacted pt spouse to schedule visit for this month. Spouse was pleasant and thanked Market Research Interviewer for the call. She stated that they had a lot of family visits this week and were a little worn out with company. Market Research Interviewer promised to check in with them next time. documented in this encounter Care Teams Energy Conservation Representative Relationship Specialty Start Date End Date Provider, None [place] PCP - General 04/27/24 Mustapha Cárdenas MD [address] [place] [address] PCP - Hospice Attending Provider 04/28/24 07/18/24 documented as of this encounter
--- OUTSIDE RECORDS SUMMARY | 2024-08-13 04:54 | XMS_ITS | Encounter Summary ---
Author Organization [facility] Address [address] [place] [address] Phone Care Team Providers Care Shellfish Manager Name Role Phone Provider, None Primary Care Provider Mustapha Hall MD Unavailable [phone] Reason for Visit * Auth/Cert (Routine) Specialty Diagnoses / Procedures Referred By Samira yu Referred To Contact Referral ID Status Reason Start Date Expiration Date Visits Re quested Visits Authorized [id number] 1 1 Encounter Details Date Type Department Care Team (Latest Contact Info) Description 05/21/2024 11:00 AM CDT [facility] [address] [place] [address] Homa Bernabe RN [place] SN - HOSPICE HOME VISIT Social History Tobacco Use Types Packs/Day Years Used Date Smoking Tobacco: Never Assessed Sex and Gender Information Value Date Recorded Sex Assigned at Not on file Legal Sex Male 2:48 AM PRODUCTION UNDERWRITER Gender Identity Not on file Sexual Orientation Not on file documented as of this encounter Last Filed Vital Signs Vital Sign Reading Time Taken Comments Blood Pressure 127/56 05/21/2024 11:15 AM CDT Pulse 106 05/21/2024 11:15 AM CDT Temperature 36.9 ??C (98.4 ??F) 05/21/2024 11:15 AM C DT Respiratory Rate 16 05/21/2024 11:15 AM CDT Oxygen Saturation 97% 05/21/2024 11:15 AM CDT Inhaled Oxygen Concentration - - Weight - - Height - - Body Mass Index - - documented in this encounter Plan of Treatment Not on file documented as of this encounter Visit Diagnoses Not on filedocumented in this encounter Care Teams Shellfish Manager Relationship Specialty Start Date End Date Provider, None [place] PCP - General 04/27/24 Mustapha Cárdenas MD [address] [place] [address] PCP - Hospice Attending Provider 04/28/24 07/18/24 documented as of this encounter
--- OUTSIDE RECORDS SUMMARY | 2024-08-13 04:54 | XMS_ITS | Encounter Summary ---
Author Organization [facility] Address [address] [place] [address] Phone Care Team Providers Care Subscription Clerk Name Role Phone Provider, None Primary Care Provider Mustapha Hall MD Unavailable [phone] Reason for Visit * Auth/Cert (Routine) Specialty Diagnoses / Procedures Referred By Samira yu Referred To Contact Referral ID Status Reason Start Date Expiration Date Visits Re quested Visits Authorized [id number] 1 1 Encounter Details Date Type Department Care Team (Latest Contact Info) Description 06/26/2024 1:00 PM GROUNDSKEEPING MAINTENANCE [facility] [address] [place] [address] Earl Roblero CNA [place] [facility] - HOSPICE VISIT Social History Tobacco Use Types Packs/Day Years Used Date Smoking Tobacco: Never Assessed Sex and Gender Information Value Date Recorded Sex Assigned at Not on file Legal Sex Male 2:48 AM GROUNDSKEEPING MAINTENANCE Gender Identity Not on file Sexual Orientation Not on file documented as of this encounter Last Filed Vital Signs Vital Sign Reading Time Taken Comments Blood Pressure 112/74 06/26/2024 1:12 PM GROUNDSKEEPING MAINTENANCE Pulse 102 06/26/2024 1:12 PM GROUNDSKEEPING MAINTENANCE Temperature - - Respiratory Rate 18 06/26/2024 1:12 PM GROUNDSKEEPING MAINTENANCE Oxygen Saturation - - Inhaled Oxygen Concentration - - Weight - - Height - - Body Mass Index - - documented in this encounter Plan of Treatment Not on file documented as of this encounter Visit Diagnoses Not on filedocumented in this encounter Hospice Visit - Care Plan Visit Details Visit Type -[facility] - HOSPICE Vi sit Discipline -Special Education Educational Assistant Problems Problem Description Start Date Status Goals Interve ntions [facility] SERVICES Disciplines: Special Education Educational Assistant 04/28/2024 Active 1 goal linked to scheduled/document ed intervention 1 goal intervention scheduled/document ed in this visit [facility] PROVIDE BATH Disciplines: Special Education Educational Assistant 04/28/2024 Active - 1 problem intervention scheduled/document ed in this visit [facility] CARE PLAN Disciplines: Special Education Educational Assistant [facility] Care Plan 04/28/2024 Active - 7 problem interventions scheduled/document ed in this visit [facility] CARE PLAN Disciplines: Special Education Educational Assistant [facility] Care Plan 05/13/2024 Active - 1 [...] condition, complaints and safety concerns to the Animal Anatomy Teacher. Problem:[facility] SERVICES Goal:[facility] Care Plan Completed [...] declines. Problem:[facility] CARE PLAN Completed Communicate with Au Pair Description: Communicate with interior design project manager as needed. Problem:[facility] CARE PLAN Completed Assist With Shaving Description: Shave patient unless patient/caregiver declines. Problem:[facility] CARE PLAN Completed documented in this encounter Care Teams Subscription Clerk Relationship Specialty Start Date End Date Provider, None [place] PCP - General 04/27/24 Mustapha Cárdenas MD [address] [place] [address] PCP - Hospice Attending Provider 04/28/24 07/18/24 documented as of this encounter
--- OUTSIDE RECORDS SUMMARY | 2024-08-13 04:54 | XMS_ITS | Encounter Summary ---
Author Organization [facility] Address [address] [place] [address] Phone Care Team Providers Care Mandrel Cleaner Name Role Phone Provider, None Primary Care Provider Mustapha Hall MD Unavailable [phone] Reason for Visit * Auth/Cert (Routine) Specialty Diagnoses / Procedures Referred By Samira yu Referred To Contact Referral ID Status Reason Start Date Expiration Date Visits Re quested Visits Authorized [id number] 1 1 Encounter Details Date Type Department Care Team (Latest Contact Info) Description 06/19/2024 1:00 PM BUSINESS SEGMENT MANAGER [facility] [address] [place] [address] [facility] - HOSPICE VISIT Social History Tobacco Use Types Packs/Day Years Used Date Smoking Tobacco: Never Assessed Sex and Gender Information Value Date Recorded Sex Assigned at Not on file Legal Sex Male 2:48 AM BUSINESS SEGMENT MANAGER Gender Identity Not on file Sexual Orientation Not on file documented as of this encounter Last Filed Vital Signs Vital Sign Reading Time Taken Comments Blood Pressure 130/71 06/19/2024 1:45 PM BUSINESS SEGMENT MANAGER Pulse 92 06/19/2024 1:45 PM BUSINESS SEGMENT MANAGER Temperature 36.6 ??C (97.8 ??F) 06/19/2024 1:45 PM CS T Respiratory Rate 16 06/19/2024 1:45 PM BUSINESS SEGMENT MANAGER Oxygen Saturation - - Inhaled Oxygen Concentration - - Weight - - Height - - Body Mass Index - - documented in this encounter Plan of Treatment Not on file documented as of this encounter Visit Diagnoses Not on filedocumented in this encounter Hospice Visit - Care Plan Visit Details Visit Type -[facility] - HOSPICE Vi sit Discipline -Precinct Police Lieutenant Problems Problem Description Start Date Status Goals Interve ntions [facility] SERVICES Disciplines: Precinct Police Lieutenant 04/28/2024 Active 1 goal linked to scheduled/document ed intervention 1 goal intervention scheduled/document ed in this visit [facility] PROVIDE BATH Disciplines: Precinct Police Lieutenant 04/28/2024 Active - 1 problem intervention scheduled/document ed in this visit [facility] CARE PLAN Disciplines: Precinct Police Lieutenant [facility] Care Plan 04/28/2024 Active - 7 problem interventions scheduled/document ed in this visit [facility] CARE PLAN Disciplines: Precinct Police Lieutenant [facility] Care Plan 05/13/2024 Active - 1 [...] condition, complaints and safety concerns to the Glass Inserter. Problem:[facility] SERVICES Goal:[facility] Care Plan Completed Evaluated [...] declines. Problem:[facility] CARE PLAN Completed Communicate with Healthcare Corporate Account Director Description: Communicate with software development test engineer as needed. Problem:[facility] CARE PLAN Completed Assist With Shaving Description: Shave patient unless patient/caregiver declines. Problem:[facility] CARE PLAN Completed documented in this encounter Care Teams Mandrel Cleaner Relationship Specialty Start Date End Date Provider, None [place] PCP - General 04/27/24 Mustapha Cárdenas MD [address] [place] [address] PCP - Hospice Attending Provider 04/28/24 07/18/24 documented as of this encounter
--- OUTSIDE RECORDS SUMMARY | 2024-08-13 04:54 | XMS_ITS | Encounter Summary ---
Author Organization [facility] Care Team Providers Care Telemetry Rn Name Role Phone Provider, None Primary Care Provider Mustapha Hall MD Unavailable Encounter Details Date Type Department Care Team (Latest Contact Info) Description 05/27/2024 Travel Social History Tobacco Use Types Packs/Day Years Used Date Smoking Tobacco: Never Assessed Sex and Gender Information Value Date Recorded Sex Assigned at Not on file Legal Sex Male 2:48 AM CIRCUS TRAINER Gender Identity Not on file Sexual Orientation Not on file documented as of this encounter Plan of Treatment Not on file documented as of this encounter Visit Diagnoses Not on filedocumented in this encounter Care Teams Telemetry Rn Relationship Specialty Start Date End Date Provider, None [place] PCP - General 04/27/24 Mustapha Cárdenas MD [address] [place] [address] PCP - Hospice Attending Provider 04/28/24 07/18/24 documented as of this encounter
--- OUTSIDE RECORDS SUMMARY | 2024-08-13 04:54 | XMS_ITS | Encounter Summary ---
Author Organization [facility] Care Team Providers Care Otc Clerk Name Role Phone Provider, None Primary Care Provider Mustapha Hall MD Unavailable [phone] Encounter Details Date Type Department Care Team (Latest Contact Info) Description 06/03/2024 Travel Social History Tobacco Use Types Packs/Day Years Used Date Smoking Tobacco: Never Assessed Sex and Gender Information Value Date Recorded Sex Assigned at Not on file Legal Sex Male 2:48 AM CNS Gender Identity Not on file Sexual Orientation Not on file documented as of this encounter Plan of Treatment Not on file documented as of this encounter Visit Diagnoses Not on filedocumented in this encounter Care Teams Otc Clerk Relationship Specialty Start Date End Date Provider, None [place] PCP - General 04/27/24 Mustapha Cárdenas MD [address] [place] [address] PCP - Hospice Attending Provider 04/28/24 07/18/24 documented as of this encounter
--- OUTSIDE RECORDS SUMMARY | 2024-08-13 04:54 | XMS_ITS | Encounter Summary ---
Author Organization [facility] Address [address] [place] [address] Phone Care Team Providers Care Claim Technician Name Role Phone Provider, None Primary Care Provider Mustapha Hall MD Unavailable [phone] Reason for Visit * Auth/Cert (Routine) Specialty Diagnoses / Procedures Referred By Samira t Referred To Contact Referral ID Status Reason Start Date Expiration Date Visits Re quested Visits Authorized [id number] 1 1 Encounter Details Date Type Department Care Team (Latest Contact Info) Description 07/18/2024 11:00 AM RELEASE OF INFORMATION SPECIALIST [facility] [address] [place] [address] Homa Bernabe, RN [place] SN - HOSPICE DISCHARGE Social History Tobacco Use Types Packs/Day Years Used Date Smoking Tobacco: Never Assessed Sex and Gender Information Value Date Recorded Sex Assigned at Not on file Legal Sex Male 2:48 AM RELEASE OF INFORMATION SPECIALIST Gender Identity Not on file Sexual Orientation Not on file documented as of this encounter Plan of Treatment Not on file documented as of this encounter Visit Diagnoses Not on filedocumented in this encounter Care Teams Claim Technician Relationship Specialty Start Date End Date Provider, None [place] PCP - General 04/27/24 Mustapha Cárdenas MD [address] [place] [address] PCP - Hospice Attending Provider 04/28/24 07/18/24 documented as of this encounter
--- OUTSIDE RECORDS SUMMARY | 2024-08-13 04:54 | XMS_ITS | Encounter Summary ---
Author Organization [facility] Address [address] [place] [address] Phone Care Team Providers Care Mobile Battery Technician Name Role Phone Provider, None Primary Care Provider Mustapha Hall MD Unavailable Encounter Details Date Type Department Care Team (Late st Contact Info) Description 05/21/2024 [facility] [address] [place] [address] Social History Tobacco Use Types Packs/Day Years Used Date Smoking Tobacco: Never Assessed Sex and Gender Information Value Date Recorded Sex Assigned at Not on file Legal Sex Male 2:48 AM PRODUCTION OPERATIONS MANAGER Gender Identity Not on file Sexual Orientation Not on file documented as of this encounter Miscellaneous Notes * Hospice Plan of Care - Homa Bernabe RN - 06/04/2024 8:48 AM CDT IDG Date: 06/04/24 Attendees: Dr Cárdenas, Yoanna Seaman, Geoff Loera, Vlad Morris, Eriak Marinelli, Guadalupe lBas, Berenice Jean Baptiste, Noelle Blum, Earl Roblero. Discussion Summary: Pt is alert to self with immediate, long and short-term memory difficulties. Ptcontinues to pace and asks to go but pacing is better managed with risperidone twice a day. Pt is incontinent of bowel and bladder and has started wearing depends the last 2 weeks. Pt needs remindersof where the bathroom is. Pts appetite remains good and he asks for something to eat every 2 hours during the day. Pt requires assistance with bathing, grooming, and dressing. Goals: To have no episodes of incontinence in the next two weeks managed with depends. Changes in Services: [facility] visits 2 times a week. New Orders: None HUMAN RESOURCES SUPPORT SPECIALIST Plan reviewed and updated: 06/04/24 Patient and Family agree with POC: Yes * Hospice Plan of Care - Martita Jean Baptiste MSW - 06/04/2024 8:48 AM CDT Discussion Summary: Pt continues to pace during the day. He is taking Risperidone 2x daily which has helped control the pacing. He continues to have a good appetite and asks for food every 2 hours during the day. He started needing to wear depends 2 weeks ago. His has ups and downs with coping. She is coping somewhat better since pt was started on Risperidone. Goals: for pt to continue to be up in the home as tolerated. documented in this encounter Plan of Treatment Not on file documented as of this encounter Visit Diagnoses Not on filedocumented in this encounter Care Teams Mobile Battery Technician Relationship Specialty Start Date End Date Provider, None [place] PCP - General 04/27/24 Mustapha Cárdenas MD [address] [place] [address] PCP - Hospice Attending Provider 04/28/24 07/18/24 documented as of this encounter
--- OUTSIDE RECORDS SUMMARY | 2024-08-13 04:54 | XMS_ITS | Encounter Summary ---
Author Organization [facility] Address [address] [place] [address] Phone Care Team Providers Care President Celebrity Acquistion Name Role Phone Provider, None Primary Care Provider Mustapha Hall MD Unavailable [phone] Encounter Details Date Type Department Care Team (Late st Contact Info) Description 06/25/2024 [facility] [address] [place] [address] Yael Cárdenas DO [address] [address] Social History Tobacco Use Types Packs/Day Years Used Date Smoking Tobacco: Never Assessed Sex and Gender Information Value Date Recorded Sex Assigned at Not on file Legal Sex Male 2:48 AM WASH BARREL LEADER Gender Identity Not on file Sexual Orientation Not on file documented as of this encounter Plan of Treatment Not on file documented as of this encounter Procedures Procedure Name Priority Date/Time Associated Diagnosis Comments CULTURE, URINE Routine 06/25/2024 9:48 AM WASH BARREL LEADER documented in this encounter Results * CULTURE, URINE (06/25/2024 9:48 AM WASH BARREL LEADER) CULTURE RESULTS Mixed Growth of One or More Distal Urethral Contaminants 06/26/2024 8:52 PM WASH BARREL LEADER [facility] Culture URINE SPECIMEN COLLECTION, CLEAN CATCH / Unknown No Phlebotomy Charged / Unknown 06/25/2024 9:48 AM WASH BARREL LEADER 06/25/2024 10:41 AM WASH BARREL LEADER us Amarpreet S Cárdenas DO MICROBIOLOGY - GENERAL ORD ERABLES Final Result [facility] [address] [place] [address], documented in this encounter Visit Diagnoses Not on filedocumented in this encounter Care Teams President Celebrity Acquistion Relationship Specialty Start Date End Date Provider, None [place] PCP - General 04/27/24 Mustapha Cárdenas MD [address] [place] [address] PCP - Hospice Attending Provider 04/28/24 07/18/24 documented as of this encounter
--- OUTSIDE RECORDS SUMMARY | 2024-08-13 04:54 | XMS_ITS | Encounter Summary ---
Author Organization [facility] Address [address] [place] [address] Phone Care Team Providers Care Client Specialist Name Role Phone Provider, None Primary Care Provider Mustapha Hall MD Unavailable [phone] Reason for Visit * Auth/Cert (Routine) Specialty Diagnoses / Procedures Referred By aSmira yu Referred To Contact Referral ID Status Reason Start Date Expiration Date Visits Re quested Visits Authorized [id number] 1 1 Encounter Details Date Type Department Care Team (Latest Contact Info) Description 06/11/2024 11:00 AM CDT Home [facility] Visit [facility] [address] [place] [address] Homa Bernabe RN [place] SN - HOSPICE HOME VISIT Social History Tobacco Use Types Packs/Day Years Used Date Smoking Tobacco: Never Assessed Sex and Gender Information Value Date Recorded Sex Assigned at Not on file Legal Sex Male 2:48 AM SOFTWARE DATABASE ARCHITECT Gender Identity Not on file Sexual Orientation Not on file documented as of this encounter Last Filed Vital Signs Vital Sign Reading Time Taken Comments Blood Pressure 126/88 06/11/2024 11:14 AM CDT Pulse 93 06/11/2024 11:14 AM CDT Temperature 36.3 ??C (97.3 ??F) 06/11/2024 11:14 AM C DT Respiratory Rate 16 06/11/2024 11:14 AM CDT Oxygen Saturation 97% 06/11/2024 11:14 AM CDT Inhaled Oxygen Concentration - - Weight - - Height - - Body Mass Index - - documented in this encounter Plan of Treatment Not on file documented as of this encounter Visit Diagnoses Not on filedocumented in this encounter Care Teams Client Specialist Relationship Specialty Start Date End Date Provider, None [place] PCP - General 04/27/24 Mustapha Cárdenas MD [address] [place] [address] PCP - Hospice Attending Provider 04/28/24 07/18/24 documented as of this encounter
--- OUTSIDE RECORDS SUMMARY | 2024-08-13 04:54 | XMS_ITS | Encounter Summary ---
Author Organization [facility] Address [address] [place] [address] Phone Care Team Providers Care Sales Appointment Coordinator Name Role Phone Provider, None Primary Care Provider Mustapha Hall MD Unavailable [phone] Encounter Details Date Type Department Care Team (Late st Contact Info) Description 06/04/2024 [facility] [address] [place] [address] Social History Tobacco Use Types Packs/Day Years Used Date Smoking Tobacco: Never Assessed Sex and Gender Information Value Date Recorded Sex Assigned at Not on file Legal Sex Male 2:48 AM COMPLIANCE PROFESSIONAL Gender Identity Not on file Sexual Orientation Not on file documented as of this encounter Miscellaneous Notes * Hospice Plan of Care - Homa Bernabe RN - 06/18/2024 9:19 AM CST IDG Date: 06/18/24 Attendees: Homa Denis, Yoanna Seaman, Geoff Loera, Vlad Morris, Erika Marinelli, Guadalupe Blas, Noelle Ferguson, Berenice Jean Baptiste, Earl Roblero. Discussion Summary: Pt is alert to self with immediate, long and short-term memory difficulties. Ptcontinues to pace all day, pts spouse Mirian reports pacing has decreased as well as agitation since pts risperidone was increased to twice daily and lorazepam decreased to bedtime only. Pt requires reminders of where the bathroom is, he is occasionally incontinent of bladder managed with depends. Pt requires assistance with grooming, bathing, and dressing. Goals: For pacing and agitation to continue to improve and decrease over the next two weeks. Changes in Services: None New Orders: Risperidone is now BID, lorazepam is decreased to bedtime only. DIRECTOR NETWORK DEVELOPMENT Plan reviewed and updated: 06/18/24 Patient and Family agree with POC: Yes LIANCE PROFESSIONAL documented in this encounter Plan of Treatment Not on file documented as of this encounter Visit Diagnoses Not on filedocumented in this encounter Care Teams Sales Appointment Coordinator Relationship Specialty Start Date End Date Provider, None [place] PCP - General 04/27/24 Mustapha Cárdenas MD [address] [place] [address] PCP - Hospice Attending Provider 04/28/24 07/18/24 documented as of this encounter
--- OUTSIDE RECORDS SUMMARY | 2024-08-13 04:54 | XMS_ITS | Encounter Summary ---
Author Organization [facility] Care Team Providers Care Hand Or Machine Paster Name Role Phone Provider, None Primary Care Provider Mustapha Hall MD Unavailable Encounter Details Date Type Department Care Team (Latest Contact Info) Description 06/28/2024 Travel Social History Tobacco Use Types Packs/Day Years Used Date Smoking Tobacco: Never Assessed Sex and Gender Information Value Date Recorded Sex Assigned at Not on file Legal Sex Male 2:48 AM BUGGY RUNNER Gender Identity Not on file Sexual Orientation Not on file documented as of this encounter Plan of Treatment Not on file documented as of this encounter Visit Diagnoses Not on filedocumented in this encounter Care Teams Hand Or Machine Paster Relationship Specialty Start Date End Date Provider, None [place] PCP - General 04/27/24 Mustapha Cárdenas MD [address] [place] [address] PCP - Hospice Attending Provider 04/28/24 07/18/24 documented as of this encounter
--- OUTSIDE RECORDS SUMMARY | 2024-08-13 04:54 | XMS_ITS | Encounter Summary ---
Author Organization [facility] Address [address] [place] [address] Phone Care Team Providers Care Commercial Roofer Name Role Phone Provider, None Primary Care Provider Mustapha Hall MD Unavailable [phone] Reason for Visit * Auth/Cert (Routine) Specialty Diagnoses / Procedures Referred By Samira yu Referred To Contact Referral ID Status Reason Start Date Expiration Date Visits Re quested Visits Authorized [id number] 1 1 Encounter Details Date Type Department Care Team (Latest Contact Info) Description 06/06/2024 11:00 AM CDT Home [facility] Visit [facility] [address] [place] [address] Homa Bernabe RN [place] SN - HOSPICE HOME VISIT Social History Tobacco Use Types Packs/Day Years Used Date Smoking Tobacco: Never Assessed Sex and Gender Information Value Date Recorded Sex Assigned at Not on file Legal Sex Male 2:48 AM SALESPERSON PARTS Gender Identity Not on file Sexual Orientation Not on file documented as of this encounter Last Filed Vital Signs Vital Sign Reading Time Taken Comments Blood Pressure 120/67 06/06/2024 11:01 AM CDT Pulse 110 06/06/2024 11:01 AM CDT Temperature 36.3 ??C (97.3 ??F) 06/06/2024 11:01 AM C DT Respiratory Rate 16 06/06/2024 11:01 AM CDT Oxygen Saturation 94% 06/06/2024 11:01 AM CDT Inhaled Oxygen Concentration - - Weight - - Height - - Body Mass Index - - documented in this encounter Plan of Treatment Not on file documented as of this encounter Visit Diagnoses Not on filedocumented in this encounter Care Teams Commercial Roofer Relationship Specialty Start Date End Date Provider, None [place] PCP - General 04/27/24 Mustapha Cárdenas MD [address] [place] [address] PCP - Hospice Attending Provider 04/28/24 07/18/24 documented as of this encounter
--- OUTSIDE RECORDS SUMMARY | 2024-08-13 04:54 | XMS_ITS | Encounter Summary ---
Author Organization [facility] Care Team Providers Care Monogram Operator Name Role Phone Provider, None Primary Care Provider Mustapha Hall MD Unavailable Encounter Details Date Type Department Care Team (Latest Contact Info) Description 05/21/2024 Travel Social History Tobacco Use Types Packs/Day Years Used Date Smoking Tobacco: Never Assessed Sex and Gender Information Value Date Recorded Sex Assigned at Not on file Legal Sex Male 2:48 AM COAL HANDLING SUPERVISOR Gender Identity Not on file Sexual Orientation Not on file documented as of this encounter Plan of Treatment Not on file documented as of this encounter Visit Diagnoses Not on filedocumented in this encounter Care Teams Monogram Operator Relationship Specialty Start Date End Date Provider, None [place] PCP - General 04/27/24 Mustapha Cárdenas MD [address] [place] [address] PCP - Hospice Attending Provider 04/28/24 07/18/24 documented as of this encounter
--- OUTSIDE RECORDS SUMMARY | 2024-08-13 04:54 | XMS_ITS | Encounter Summary ---
Author Organization [facility] Address [address] [place] [address] Phone Care Team Providers Care Pre Sales Network Engineer Name Role Phone Provider, None Primary Care Provider Mustapha Hall MD Unavailable [phone] Reason for Visit * Auth/Cert (Routine) Specialty Diagnoses / Procedures Referred By Samira yu Referred To Contact Referral ID Status Reason Start Date Expiration Date Visits Re quested Visits Authorized [id number] 1 1 Encounter Details Date Type Department Care Team (Latest Contact Info) Description 07/15/2024 1:00 PM COMMUNITY ENGAGEMENT REPRESENTATIVE [facility] [address] [place] [address] Earl Roblero CNA [place] [facility] - H[facility]PICE VISIT Social History Tobacco Use Types Packs/Day Years Used Date Smoking Tobacco: Never Assessed Sex and Gender Information Value Date Recorded Sex Assigned at Not on file Legal Sex Male 2:48 AM COMMUNITY ENGAGEMENT REPRESENTATIVE Gender Identity Not on file Sexual Orientation Not on file documented as of this encounter Last Filed Vital Signs Vital Sign Reading Time Taken Comments Blood Pressure 122/86 07/15/2024 2:00 PM COMMUNITY ENGAGEMENT REPRESENTATIVE Pulse 90 07/15/2024 2:00 PM COMMUNITY ENGAGEMENT REPRESENTATIVE Temperature 36.6 ??C (97.8 ??F) 07/15/2024 2:00 PM CS T Respiratory Rate 18 07/15/2024 2:00 PM COMMUNITY ENGAGEMENT REPRESENTATIVE Oxygen Saturation - - Inhaled Oxygen Concentration - - Weight - - Height - - Body Mass Index - - documented in this encounter Plan of Treatment Not on file documented as of this encounter Visit Diagnoses Not on filedocumented in this encounter Hospice Visit - Care Plan Visit Details Visit Type -[facility] - HOSPICE Vi sit Discipline -Network Consultant Problems Problem Description Start Date Status Goals Interve ntions [facility] SERVICES Disciplines: Network Consultant 04/28/2024 Active 1 goal linked to scheduled/document ed intervention 1 goal intervention scheduled/document ed in this visit [facility] PROVIDE BATH Disciplines: Network Consultant 04/28/2024 Active - 1 problem intervention scheduled/document ed in this visit [facility] CARE PLAN Disciplines: Network Consultant [facility] Care Plan 04/28/2024 Active - 7 problem interventions scheduled/document ed in this visit [facility] CARE PLAN Disciplines: Network Consultant [facility] Care Plan 05/13/2024 Active - 1 [...] condition, complaints and safety concerns to the Transfer Specialist. Problem:[facility] SERVICES Goal:[facility] Care Plan Completed Evaluated [...] declines. Problem:[facility] CARE PLAN Completed Communicate with Criminalist Description: Communicate with telephone answerer as needed. Problem:[facility] CARE PLAN Completed Assist With Shaving Description: Shave patient unless patient/caregiver declines. Problem:[facility] CARE PLAN Completed documented in this encounter Care Teams Pre Sales Network Engineer Relationship Specialty Start Date End Date Provider, None [place] PCP - General 04/27/24 Mustapha Cárdenas MD [address] [place] [address] PCP - Hospice Attending Provider 04/28/24 07/18/24 documented as of this encounter
--- OUTSIDE RECORDS SUMMARY | 2024-08-13 04:54 | XMS_ITS | Encounter Summary ---
Author Organization [facility] Address [address] [place] [address] Phone Care Team Providers Care Elementary Science Teacher Name Role Phone Provider, None Primary Care Provider Mustapha Hall MD Unavailable [phone] Reason for Visit * Auth/Cert (Routine) Specialty Diagnoses / Procedures Referred By Samira t Referred To Contact Referral ID Status Reason Start Date Expiration Date Visits Re quested Visits Authorized [id number] 1 1 Encounter Details Date Type Department Care Team (Late st Contact Info) Description 07/11/2024 [facility] [address] [place] [address] Homa Bernabe, RN [place] CASE COMMUNICATION Social History Tobacco Use Types Packs/Day Years Used Date Smoking Tobacco: Never Assessed Sex and Gender Information Value Date Recorded Sex Assigned at Not on file Legal Sex Male 2:48 AM TELECOM BILLING ANALYST Gender Identity Not on file Sexual Orientation Not on file documented as of this encounter Plan of Treatment Not on file documented as of this encounter Visit Diagnoses Not on filedocumented in this encounter Care Teams Elementary Science Teacher Relationship Specialty Start Date End Date Provider, None [place] PCP - General 04/27/24 Mustapha Cárdenas MD [address] [place] [address] PCP - Hospice Attending Provider 04/28/24 07/18/24 documented as of this encounter
--- OUTSIDE RECORDS SUMMARY | 2024-08-13 04:55 | XMS_ITS | Encounter Summary ---
Author Organization [facility] Care Team Providers Care Machine Helper Name Role Phone Provider, None Primary Care Provider Mustapha Hall MD Unavailable [phone] Encounter Details Date Type Department Care Team (Latest Contact Info) Description 05/09/2024 Travel Social History Tobacco Use Types Packs/Day Years Used Date Smoking Tobacco: Never Assessed Sex and Gender Information Value Date Recorded Sex Assigned at Not on file Legal Sex Male 2:48 AM BRIDGE MAINTENANCE WORKER Gender Identity Not on file Sexual Orientation Not on file documented as of this encounter Plan of Treatment Not on file documented as of this encounter Visit Diagnoses Not on filedocumented in this encounter Care Teams Machine Helper Relationship Specialty Start Date End Date Provider, None [place] PCP - General 04/27/24 Mustapha Cárdenas MD [address] [place] [address] PCP - Hospice Attending Provider 04/28/24 07/18/24 documented as of this encounter
--- OUTSIDE RECORDS SUMMARY | 2024-08-13 04:55 | XMS_ITS | Encounter Summary ---
Author Organization [facility] Address [address] [place] [address] Phone Care Team Providers Care Marketing Planning Manager Name Role Phone Provider, None Primary Care Provider Mustapha Hall MD Unavailable [phone] Reason for Visit * Auth/Cert (Routine) Specialty Diagnoses / Procedures Referred By Samira yu Referred To Contact Referral ID Status Reason Start Date Expiration Date Visits Re quested Visits Authorized [id number] 1 1 Encounter Details Date Type Department Care Team (Latest Contact Info) Description 05/09/2024 11:00 AM CDT [facility] [address] [place] [address] Homa Bernabe RN [place] - [place]OSPICE HOME VISIT Social History Tobacco Use Types Packs/Day Years Used Date Smoking Tobacco: Never Assessed Sex and Gender Information Value Date Recorded Sex Assigned at Not on file Legal Sex Male 2:48 AM BUSINESS PLANNING DIRECTOR Gender Identity Not on file Sexual Orientation Not on file documented as of this encounter Last Filed Vital Signs Vital Sign Reading Time Taken Comments Blood Pressure 117/68 05/09/2024 11:12 AM CDT Pulse 93 05/09/2024 11:12 AM CDT Temperature 36.4 ??C (97.5 ??F) 05/09/2024 11:12 AM C DT Respiratory Rate 16 05/09/2024 11:12 AM CDT Oxygen Saturation 96% 05/09/2024 11:12 AM CDT Inhaled Oxygen Concentration - - Weight - - Height - - Body Mass Index - - documented in this encounter Plan of Treatment Not on file documented as of this encounter Visit Diagnoses Not on filedocumented in this encounter Care Teams Marketing Planning Manager Relationship Specialty Start Date End Date Provider, None [place] PCP - General 04/27/24 Mustapha Cárdenas MD [address] [place] [address] PCP - Hospice Attending Provider 04/28/24 07/18/24 documented as of this encounter
--- OUTSIDE RECORDS SUMMARY | 2024-08-13 04:55 | XMS_ITS | Encounter Summary ---
Author Organization [facility] Address [address] [place] [address] Phone Care Team Providers Care Health Facilities Surveyor Name Role Phone Provider, None Primary Care Provider Mustapha Hall MD Unavailable [phone] Reason for Visit * Auth/Cert (Routine) Specialty Diagnoses / Procedures Referred By Samira yu Referred To Contact Referral ID Status Reason Start Date Expiration Date Visits Re quested Visits Authorized [id number] 1 1 Encounter Details Date Type Department Care Team (Latest Contact Info) Description 04/29/2024 11:00 AM CDT Home [facility] Visit [facility] [address] [place] [address] Homa Bernabe RN [place] - HOSPICE HOME VISIT Social History Tobacco Use Types Packs/Day Years Used Date Smoking Tobacco: Never Assessed Sex and Gender Information Value Date Recorded Sex Assigned at Not on file Legal Sex Male 2:48 AM OUTPATIENT PROGRAM COORDINATOR Gender Identity Not on file Sexual Orientation Not on file documented as of this encounter Last Filed Vital Signs Vital Sign Reading Time Taken Comments Blood Pressure 122/92 04/29/2024 10:57 AM CDT Pulse 100 04/29/2024 10:57 AM CDT Temperature 36.6 ??C (97.9 ??F) 04/29/2024 10:57 AM C DT Respiratory Rate 16 04/29/2024 10:57 AM CDT Oxygen Saturation 96% 04/29/2024 10:57 AM CDT Inhaled Oxygen Concentration - - Weight - - Height - - Body Mass Index - - documented in this encounter Plan of Treatment Not on file documented as of this encounter Visit Diagnoses Not on filedocumented in this encounter Care Teams Health Facilities Surveyor Relationship Specialty Start Date End Date Provider, None [place] PCP - General 04/27/24 Mustapha Cárdenas MD [address] [place] [address] PCP - Hospice Attending Provider 04/28/24 07/18/24 documented as of this encounter
--- OUTSIDE RECORDS SUMMARY | 2024-08-13 04:55 | XMS_ITS | Encounter Summary ---
Author Organization [facility] Address [address] [facility] [place] [address] Phone Care Team Providers Care Belt Puncher Name Role Phone Provider, None Primary Care Provider Mustapha Hall MD Unavailable [phone] Reason for Visit * Auth/Cert (Routine) Specialty Diagnoses / Procedures Referred By Samira t Referred To Contact Referral ID Status Reason Start Date Expiration Date Visits Re quested Visits Authorized [id number] 1 1 Encounter Details Date Type Department Care Team (Late st Contact Info) Description 05/02/2024 [facility] [address] [place] [address] Martita Jean Baptiste, REGISTRATION MANAGER TELEPHONE ENCOUNTER Social History Tobacco Use Types Packs/Day Years Used Date Smoking Tobacco: Never Assessed Sex and Gender Information Value Date Recorded Sex Assigned at Not on file Legal Sex Male 2:48 AM CONSUMER LOAN OFFICER Gender Identity Not on file Sexual Orientation Not on file documented as of this encounter Plan of Treatment Not on file documented as of this encounter Visit Diagnoses Not on filedocumented in this encounter Hospice Visit - Actions and Narratives Actions Phone contact with to s chedule evaluation. They are out doing errands today. She is taking pt to the [place] for a shave then they have other errands. No immediate needs identified. Will call back next week to plan evaluation visit. documented in this encounter Care Teams Belt Puncher Relationship Specialty Start Date End Date Provider, None [place] PCP - General 04/27/24 Mustapha Cárdenas MD [address] [place] [address] PCP - Hospice Attending Provider 04/28/24 07/18/24 documented as of this encounter
--- OUTSIDE RECORDS SUMMARY | 2024-08-13 04:55 | XMS_ITS | Encounter Summary ---
Author Organization [facility] Address [address] [place] [address] Phone Care Team Providers Care Order Picker/Assembler Name Role Phone Provider, None Primary Care Provider Mustapha Hall MD Unavailable [phone] Reason for Visit * Auth/Cert (Routine) Specialty Diagnoses / Procedures Referred By Samira yu Referred To Contact Referral ID Status Reason Start Date Expiration Date Visits Re quested Visits Authorized [id number] 1 1 Encounter Details Date Type Department Care Team (Latest Contact Info) Description 05/07/2024 11:00 AM CDT [facility] [address] [place] [address] Homa Bernabe RN [place] - HOSPICE HOME VISIT Social History Tobacco Use Types Packs/Day Years Used Date Smoking Tobacco: Never Assessed Sex and Gender Information Value Date Recorded Sex Assigned at Not on file Legal Sex Male 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 Gender Identity Not on file Sexual Orientation Not on file documented as of this encounter Last Filed Vital Signs Vital Sign Reading Time Taken Comments Blood Pressure 121/76 05/07/2024 11:13 AM CDT Pulse 80 05/07/2024 11:13 AM CDT Temperature 36.6 ??C (97.9 ??F) 05/07/2024 11:13 AM C DT Respiratory Rate 16 05/07/2024 11:13 AM CDT Oxygen Saturation 97% 05/07/2024 11:13 AM CDT Inhaled Oxygen Concentration - - Weight - - Height - - Body Mass Index - - documented in this encounter Plan of Treatment Not on file documented as of this encounter Visit Diagnoses Not on filedocumented in this encounter Care Teams Order Picker/Assembler Relationship Specialty Start Date End Date Provider, None [place] PCP - General 04/27/24 Mustapha Cárdenas MD [address] [place] [address] PCP - Hospice Attending Provider 04/28/24 07/18/24 documented as of this encounter
--- OUTSIDE RECORDS SUMMARY | 2024-08-13 04:55 | XMS_ITS | Encounter Summary ---
Author Organization [facility] Address [address] [place] [address] Phone Care Team Providers Care Tan Room Supervisor Name Role Phone Provider, None Primary Care Provider Mustapha Hall MD Unavailable [phone] Reason for Visit * Auth/Cert (Routine) Specialty Diagnoses / Procedures Referred By Samira yu Referred To Contact Referral ID Status Reason Start Date Expiration Date Visits Re quested Visits Authorized [id number] 1 1 Encounter Details Date Type Department Care Team (Latest Contact Info) Description 05/01/2024 1:00 PM CDT [facility] [address] [place] [address] Earl Roblero CNA [place] [facility] - [facility]PICE VISIT Social History Tobacco Use Types Packs/Day Years Used Date Smoking Tobacco: Never Assessed Sex and Gender Information Value Date Recorded Sex Assigned at Not on file Legal Sex Male 2:48 AM GROUP THERAPY COUNSELOR Gender Identity Not on file Sexual Orientation Not on file documented as of this encounter Plan of Treatment Not on file documented as of this encounter Visit Diagnoses Not on filedocumented in this encounter Hospice Visit - Care Plan Visit Details Visit Type -[facility] - HOSPICE Vi sit Discipline -Gimp Tacker Problems Problem Description Start Date Status Goals Interve ntions [facility] SERVICES Disciplines: Gimp Tacker 04/28/2024 Active 1 goal linked to scheduled/document ed intervention 1 goal intervention scheduled/document ed in this visit [facility] PROVIDE BATH Disciplines: Gimp Tacker 04/28/2024 Active - 1 problem intervention scheduled/document ed in this visit [facility] CARE PLAN Disciplines: Gimp Tacker [facility] Care Plan 04/28/2024 Active - 7 problem interventions scheduled/document ed in this visit Goals Goal [...] condition, complaints and safety concerns to the Advertising Agency Manager. Problem:[facility] SERVICES Goal:[facility] Care Plan Completed [...] declines. Problem:[facility] CARE PLAN Completed Communicate with Medical Director Occupational Health Description: Communicate with lending activities supervisor as needed. Problem:[facility] CARE PLAN Completed documented in this encounter Care Teams Tan Room Supervisor Relationship Specialty Start Date End Date Provider, None [place] PCP - General 04/27/24 Mustapha Cárdenas MD [address] [place] [address] PCP - Hospice Attending Provider 04/28/24 07/18/24 documented as of this encounter
--- OUTSIDE RECORDS SUMMARY | 2024-08-13 04:55 | XMS_ITS | Encounter Summary ---
Author Organization [facility] Address [address] [place] [address] Phone Care Team Providers Care Upholstery Technician Name Role Phone Provider, None Primary Care Provider Mustapha Hall MD Unavailable [phone] Encounter Details Date Type Department Care Team (Late st Contact Info) Description 05/06/2024 [facility] [address] [place] [address] Social History Tobacco Use Types Packs/Day Years Used Date Smoking Tobacco: Never Assessed Sex and Gender Information Value Date Recorded Sex Assigned at Not on file Legal Sex Male 2:48 AM TYPE COPYIST Gender Identity Not on file Sexual Orientation Not on file documented as of this encounter Miscellaneous Notes * Hospice Plan of Care - Homa Bernabe RN - 05/21/2024 9:26 AM CDT IDG Date: 05/21/24 Attendees: Yoanna Seaman, Geoff Loera, Berenice Jean Baptiste, Noelle Blum, Guadalupe Blas, Erika Marinelli, Vlad Morris. Discussion Summary: -Pt is alert to self with immediate, long- and short-term memory difficulties. Pt continues to pace and asks to go somewhere all day long. Pt was started on risperidone last week and his lorazepam was decreased to two times daily. Pt continues to have a good appetite; he asks for something to eat every 2 hours. Pt is occasionally incontinent of bowel and bladder and pts spouseChristine has to show him where the bathroom is every time he says he needs to go. Goals: : To have less episodes of agitation and pacing the next two weeks. Changes in Services: None New Orders: Risperidone 0.5mg BID SANDING SUPERVISOR Plan reviewed and updated: 05/21/24 Patient and Family agree with POC: Yest documented in this encounter Plan of Treatment Not on file documented as of this encounter Visit Diagnoses Not on filedocumented in this encounter Care Teams Upholstery Technician Relationship Specialty Start Date End Date Provider, None [place] PCP - General 04/27/24 Mustapha Cárdenas MD [address] [place] [address] PCP - Hospice Attending Provider 04/28/24 07/18/24 documented as of this encounter
--- OUTSIDE RECORDS SUMMARY | 2024-08-13 04:55 | XMS_ITS | Encounter Summary ---
Author Organization [facility] Address [address] [place] [address] Phone Care Team Providers Care Feed Research Aide Name Role Phone Provider, None Primary Care Provider Mustapha Hall MD Unavailable [phone] Reason for Visit * Auth/Cert (Routine) Specialty Diagnoses / Procedures Referred By Samira yu Referred To Contact Referral ID Status Reason Start Date Expiration Date Visits Re quested Visits Authorized [id number] 1 1 Encounter Details Date Type Department Care Team (Latest Contact Info) Description 05/08/2024 1:00 PM CDT [facility] [address] [place] [address] Earl Roblero CNA [place] [facility] - HOSPICE VISIT Social History Tobacco Use Types Packs/Day Years Used Date Smoking Tobacco: Never Assessed Sex and Gender Information Value Date Recorded Sex Assigned at Not on file Legal Sex Male 2:48 AM TREATING INSPECTOR Gender Identity Not on file Sexual Orientation Not on file documented as of this encounter Plan of Treatment Not on file documented as of this encounter Visit Diagnoses Not on filedocumented in this encounter Hospice Visit - Care Plan Visit Details Visit Type -[facility] - HOSPICE Vi sit Discipline -Computer Analyst Supervisor Problems Problem Description Start Date Status Goals Interve ntions [facility] SERVICES Disciplines: Computer Analyst Supervisor 04/28/2024 Active 1 goal linked to scheduled/document ed intervention 1 goal intervention scheduled/document ed in this visit [facility] PROVIDE BATH Disciplines: Computer Analyst Supervisor 04/28/2024 Active - 1 problem intervention scheduled/document ed in this visit [facility] CARE PLAN Disciplines: Computer Analyst Supervisor [facility] Care Plan 04/28/2024 Active - 7 [...] condition, complaints and safety concerns to the Stock Worker. Problem:[facility] SERVICES Goal:[facility] Care Plan Completed [...] declines. Problem:[facility] CARE PLAN Completed Communicate with Professor Of Genetics Description: Communicate with handyman as needed. Problem:[facility] CARE PLAN Completed documented in this encounter Care Teams Feed Research Aide Relationship Specialty Start Date End Date Provider, None [place] PCP - General 04/27/24 Mustapha Cárdenas MD [address] [place] [address] PCP - Hospice Attending Provider 04/28/24 07/18/24 documented as of this encounter
--- OUTSIDE RECORDS SUMMARY | 2024-08-13 04:55 | XMS_ITS | Encounter Summary ---
Author Organization [facility] Address [address] [place] [address] Phone Care Team Providers Care Retail Equipment Associate Name Role Phone Provider, None Primary Care Provider Mustapha Hall MD Unavailable Reason for Visit * Auth/Cert (Routine) Specialty Diagnoses / Procedures Referred By Samira t Referred To Contact Referral ID Status Reason Start Date Expiration Date Visits Re quested Visits Authorized [id number] 1 1 Encounter Details Date Type Department Care Team (Late st Contact Info) Description 05/02/2024 [facility] [address] [place] [address] Homa Bernabe, RN [place] CASE COMMUNICATION Social History Tobacco Use Types Packs/Day Years Used Date Smoking Tobacco: Never Assessed Sex and Gender Information Value Date Recorded Sex Assigned at Not on file Legal Sex Male 2:48 AM COMMODITY LEAD Gender Identity Not on file Sexual Orientation Not on file documented as of this encounter Plan of Treatment Not on file documented as of this encounter Visit Diagnoses Not on filedocumented in this encounter Care Teams Retail Equipment Associate Relationship Specialty Start Date End Date Provider, None [place] PCP - General 04/27/24 Mustapha Cárdenas MD [address] [place] [address] PCP - Hospice Attending Provider 04/28/24 07/18/24 documented as of this encounter
--- OUTSIDE RECORDS SUMMARY | 2024-08-13 04:55 | XMS_ITS | Encounter Summary ---
Author Organization [facility] Address [address] [facility] [place] [address] Phone Care Team Providers Care Filter Machine Operator Name Role Phone Provider, None Primary Care Provider Mustapha Hall MD Unavailable [phone] Reason for Visit * Auth/Cert (Routine) Specialty Diagnoses / Procedures Referred By Samira t Referred To Contact Referral ID Status Reason Start Date Expiration Date Visits Re quested Visits Authorized [id number] 1 1 Encounter Details Date Type Department Care Team (Late st Contact Info) Description [facility]/30/[facility] [address] [place] [address] Vlad Morris TELEPHONE ENCOUNTER Social History Tobacco Use Types Packs/Day Years Used Date Smoking Tobacco: Never Assessed Sex and Gender Information Value Date Recorded Sex Assigned at Not on file Legal Sex Male 2:48 AM WIRE STITCHER Gender Identity Not on file Sexual Orientation Not on file documented as of this encounter Plan of Treatment Not on file documented as of this encounter Visit Diagnoses Not on filedocumented in this encounter Hospice Visit - Actions and Narratives Actions It Senior Software Engineer Java contacted pt's spou se Vela to set up an appoitment for spiritual evaluation assessment. Mirian agreed to a vist tomorrow 05/01/24 at 11 am. documented in this encounter Care Teams Filter Machine Operator Relationship Specialty Start Date End Date Provider, None [place] PCP - General 04/27/24 Mustapha Cárdenas MD [address] [place] [address] PCP - Hospice Attending Provider 04/28/24 07/18/24 documented as of this encounter
--- OUTSIDE RECORDS SUMMARY | 2024-08-13 04:55 | XMS_ITS | Encounter Summary ---
Author Organization [facility] Address [address] [place] [address] Phone Care Team Providers Care Personal Vehicle Advisor Name Role Phone Provider, None Primary Care Provider Mustapha Hall MD Unavailable [phone] Reason for Visit * Auth/Cert (Routine) Specialty Diagnoses / Procedures Referred By Samira t Referred To Contact Referral ID Status Reason Start Date Expiration Date Visits Re quested Visits Authorized [id number] 1 1 Encounter Details Date Type Department Care Team (Late st Contact Info) Description 05/01/2024 1:00 AM CDT [facility] [address] [place] [address] Vlad Morris [place] - HOME VISIT Social History Tobacco Use Types Packs/Day Years Used Date Smoking Tobacco: Never Assessed Sex and Gender Information Value Date Recorded Sex Assigned at Not on file Legal Sex Male 2:48 AM FASHION MODEL Gender Identity Not on file Sexual Orientation Not on file documented as of this encounter Plan of Treatment Not on file documented as of this encounter Visit Diagnoses Not on filedocumented in this encounter Care Teams Personal Vehicle Advisor Relationship Specialty Start Date End Date Provider, None [place] PCP - General 04/27/24 Mustapha Cárdenas MD [address] [place] [address] PCP - Hospice Attending Provider 04/28/24 07/18/24 documented as of this encounter
--- OUTSIDE RECORDS SUMMARY | 2024-08-13 04:55 | XMS_ITS | Encounter Summary ---
Author Organization [facility] Address [address] [facility] [place] [address] Phone Care Team Providers Care Air Hammer Stripper Name Role Phone Provider, None Primary Care Provider Mustapha Hall MD Unavailable [phone] Encounter Details Date Type Department Care Team (Late st Contact Info) Description 04/28/2024 Plan of Care Documentation [facility] [address] [place] [address] Social History Tobacco Use Types Packs/Day Years Used Date Smoking Tobacco: Never Assessed Sex and Gender Information Value Date Recorded Sex Assigned at Not on file Legal Sex Male 2:48 AM DIRECTOR OF CONSERVATION Gender Identity Not on file Sexual Orientation Not on file documented as of this encounter Plan of Treatment Not on file documented as of this encounter Visit Diagnoses Not on filedocumented in this encounter Care Teams Air Hammer Stripper Relationship Specialty Start Date End Date Provider, None [place] PCP - General 04/27/24 Mustapha Cárdenas MD [address] [place] [address] PCP - Hospice Attending Provider 04/28/24 07/18/24 documented as of this encounter
--- OUTSIDE RECORDS SUMMARY | 2024-08-13 04:55 | XMS_ITS | Encounter Summary ---
Author Organization [facility] Address [address] [facility] [place] [address] Phone Care Team Providers Care Trademark Attorney Name Role Phone Provider, None Primary Care Provider Mustapha Hall MD Unavailable [phone] Reason for Visit * Auth/Cert (Routine) Specialty Diagnoses / Procedures Referred By Samira t Referred To Contact Referral ID Status Reason Start Date Expiration Date Visits Re quested Visits Authorized [id number] 1 1 Encounter Details Date Type Department Care Team (Late st Contact Info) Description [facility]/02/2024 [facility] [address] [place] [address] Homa Bernabe, RN [place] DISEASE MGT PHONE Social History Tobacco Use Types Packs/Day Years Used Date Smoking Tobacco: Never Assessed Sex and Gender Information Value Date Recorded Sex Assigned at Not on file Legal Sex Male 2:48 AM 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
--- OUTSIDE RECORDS SUMMARY | 2024-08-13 04:55 | XMS_ITS | Encounter Summary ---
Author Organization [facility] Address [address] [facility] [address] Phone Care Team Providers Care Director Service Name Role Phone Provider, None Primary Care Provider Mustapha Hall MD Unavailable [phone] Encounter Details Date Type Department Care Team (Late st Contact Info) Description 04/28/2024 Telephone [facility] [address] [place] [address] Homa Bernabe, RN [place] Social History Tobacco Use Types Packs/Day Years Used Date Smoking Tobacco: Never Assessed Sex and Gender Information Value Date Recorded Sex Assigned at Not on file Legal Sex Male 2:48 AM FACTORY ASSEMBLER Gender Identity Not on file Sexual Orientation Not on file documented as of this encounter Miscellaneous Notes * Telephone Encounter - Homa Bernabe RN - 04/28/2024 6:09 PM CDT Spoke to Dr Cárdenas regarding pending med for Patient to [facility]. documented in this encounter Plan of Treatment Not on file documented as of this encounter Visit Diagnoses Diagnosis Terminal care- Primary Encounter for palliative care documented in this encounter Care Teams Director Service Relationship Specialty Start Date End Date Provider, None [place] PCP - General 04/27/24 Mustapha Cárdenas MD [address] [place] [address] PCP - Hospice Attending Provider 04/28/24 07/18/24 documented as of this encounter
--- OUTSIDE RECORDS SUMMARY | 2024-08-13 04:55 | XMS_ITS | Encounter Summary ---
Author Organization [facility] Address [address] [place] [address] Phone Care Team Providers Care Fitness Instructor Name Role Phone Provider, None Primary Care Provider Mustapha Hall MD Unavailable [phone] Reason for Visit * Auth/Cert (Routine) Specialty Diagnoses / Procedures Referred By Samira yu Referred To Contact Referral ID Status Reason Start Date Expiration Date Visits Re quested Visits Authorized [id number] 1 1 Encounter Details Date Type Department Care Team (Latest Contact Info) Description 05/13/2024 11:00 AM CDT Home Care Visit [facility] [address] [place] [address] Homa Bernabe RN [place] SN - HOSPICE HOME VISIT Social History Tobacco Use Types Packs/Day Years Used Date Smoking Tobacco: Never Assessed Sex and Gender Information Value Date Recorded Sex Assigned at Not on file Legal Sex Male 2:48 AM FISH FRYER Gender Identity Not on file Sexual Orientation Not on file documented as of this encounter Last Filed Vital Signs Vital Sign Reading Time Taken Comments Blood Pressure 158/68 05/13/2024 10:46 AM CDT Pulse 84 05/13/2024 10:46 AM CDT Temperature 36.7 ??C (98.1 ??F) 05/13/2024 10:46 AM C DT Respiratory Rate 16 05/13/2024 10:46 AM CDT Oxygen Saturation 97% 05/13/2024 10:46 AM CDT Inhaled Oxygen Concentration - - Weight - - Height - - Body Mass Index - - documented in this encounter Plan of Treatment Not on file documented as of this encounter Visit Diagnoses Not on filedocumented in this encounter Care Teams Fitness Instructor Relationship Specialty Start Date End Date Provider, None MD PCP - General 04/27/24 Mustapha Cárdenas MD [address] [place] [address] PCP - Hospice Attending Provider 04/28/24 07/18/24 documented as of this encounter
--- OUTSIDE RECORDS SUMMARY | 2024-08-13 04:55 | XMS_ITS | Encounter Summary ---
Author Organization [facility] Care Team Providers Care Cripple Cutter Name Role Phone Provider, None Primary Care Provider Mustapha Hall MD Unavailable Encounter Details Date Type Department Care Team (Latest Contact Info) Description 04/29/2024 Travel Social History Tobacco Use Types Packs/Day Years Used Date Smoking Tobacco: Never Assessed Sex and Gender Information Value Date Recorded Sex Assigned at Not on file Legal Sex Male 2:48 AM EMAIL MARKETING INTERN Gender Identity Not on file Sexual Orientation Not on file documented as of this encounter Plan of Treatment Not on file documented as of this encounter Visit Diagnoses Not on filedocumented in this encounter Care Teams Cripple Cutter Relationship Specialty Start Date End Date Provider, None [place] PCP - General 04/27/24 Mustapha Cárdenas MD [address] [place] [address] PCP - Hospice Attending Provider 04/28/24 07/18/24 documented as of this encounter
--- OUTSIDE RECORDS SUMMARY | 2024-08-13 04:55 | XMS_ITS | Encounter Summary ---
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
--- OUTSIDE RECORDS SUMMARY | 2024-08-13 04:55 | XMS_ITS | Encounter Summary ---
Author Organization [facility] Address [address] [facility] [place] [place] [address] Phone Care Team Providers Care Crystalizer Name Role Phone Provider, None Primary Care Provider Mustapha Hall MD Unavailable [phone] Reason for Visit * Auth/Cert (Routine) Specialty Diagnoses / Procedures Referred By Samira yu Referred To Contact Referral ID Status Reason Start Date Expiration Date Visits Re quested Visits Authorized [id number] 1 1 Encounter Details Date Type Department Care Team (Late st Contact Info) Description 04/28/2024 [facility] [address] [place] [address] Geoff Loera BC -INITIAL EVALUATION Social History Tobacco Use Types Packs/Day Years Used Date Smoking Tobacco: Never Assessed Sex and Gender Information Value Date Recorded Sex Assigned at Not on file Legal 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 Gender Identity Not on file Sexual Orientation Not on file documented as of this encounter Plan of Treatment Not on file documented as of this encounter Visit Diagnoses Not on filedocumented in this encounter Hospice Visit - Care Plan Visit Details Visit Type -BC - INITIAL [place] Discipline -Set Builder Problems Problem Description Start Date Status Goals Interve ntions BEREAVEMENT PATIENT Disciplines: Set Builder 04/28/2024 Active 1 goal linked to scheduled/document ed intervention 1 goal intervention scheduled/document ed in this visit BEREAVEMENT CAREGIVER Disciplines: Set Builder 04/28/2024 Active 1 goal linked to scheduled/document ed intervention 1 goal intervention scheduled/document ed in this visit Goals Goal Associated Problem Outcome Goal Met? Visit Notes Bereavement Patient BEREAVEMENT PATIENT No Bereavement Caregiver BEREAVEMENT CAREGIVER No Interventions Intervention Associated Problem/Goal Status Variance Visit Notes Pain/Symptoms Problem:BEREAVEMENT PATIENT Goal:Bereavement Patient Scheduled Pain/Symptoms Problem:BEREAVEMENT CAREGIVER Goal:Bereavement Caregiver Scheduled documented in this encounter Care Teams Crystalizer Relationship Specialty Start Date End Date Provider, Yeni [place] PCP - General 04/27/24 Mustapha Cárdenas MD [address] [place] [address] PCP - Hospice Attending Provider 04/28/24 07/18/24 documented as of this encounter
--- OUTSIDE RECORDS SUMMARY | 2024-08-13 04:55 | XMS_ITS | Encounter Summary ---
Author Organization [facility] Address [address] [facility] [place] [place] [address] Phone Care Team Providers Care It Security Engineer Name Role Phone Provider, None Primary Care Provider Mustapha Hall MD Unavailable [phone] Encounter Details Date Type Department Care Team (Late st Contact Info) Description 05/13/[address] [facility] 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 documented in this encounter Plan of Treatment Not on file documented as of this encounter Visit Diagnoses Diagnosis Terminal care- Primary Encounter for palliative care documented in this encounter Care Teams It Security Engineer Relationship Specialty Start Date End Date Provider, None [place] PCP - General 04/27/24 Mustapha Cárdenas MD [address] [place] [address] PCP - Hospice Attending Provider 04/28/24 07/18/24 documented as of this encounter
--- OUTSIDE RECORDS SUMMARY | 2024-08-13 04:55 | XMS_ITS | Encounter Summary ---
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
--- OUTSIDE RECORDS SUMMARY | 2024-08-13 04:55 | XMS_ITS | Encounter Summary ---
Author Organization [facility] Address [address] 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 Pt is occasionally incontinent managed with reminders to use the bathroom. Pt requires frequent reminders and directions to the bathroom. Pt continues to pace off and, on all day, and is able to sit for a few minutes at a time during visits. Pts spouse Mirian stated last week that pt was restless and pacing half the night before. Dr Cárdenas gave order to increase pts evening dose of Seroquel. Goals: To have less episodes of pacing managed with rest and medication. Changes in Services: None New Orders: Seroquel evening dose increased. MANAGER UTILIZATION Plan reviewed and updated: 05/07/24 Patient and Family agree with POC: Yes * Hospice Plan of Care - Martita Jean Baptiste MSW - 05/07/2024 9:02 AM CDT Discussion Summary: will visit pt this date for evaluation. Called last Sunday was taking pt for shave then running other errands. Goals: complete evaluation. documented in this encounter Plan of Treatment Not on file documented as of this encounter Visit Diagnoses Not on filedocumented in this encounter Care Teams Other Sports Official Relationship Specialty Start Date End Date Provider, None [place] PCP - General 04/27/24 Mustapha Cárdenas MD [address] [place] [address] PCP - Hospice Attending Provider 04/28/24 07/18/24 documented as of this encounter
--- OUTSIDE RECORDS SUMMARY | 2024-08-13 04:55 | XMS_ITS | Encounter Summary ---
Author Organization [facility] Address [address] [place] [address] Phone Care Team Providers Care Special Warfare Boat Operator Name Role Phone Provider, None Primary Care Provider Mustapha Hall MD Unavailable [phone] Reason for Visit * Auth/Cert (Routine) Specialty Diagnoses / Procedures Referred By Samira t Referred To Contact Referral ID Status Reason Start Date Expiration Date Visits Re quested Visits Authorized [id number] 1 1 Encounter Details Date Type Department Care Team (Latest Contact Info) Description 05/07/2024 11:00 AM CDT [facility] [address] [place] [address] Martita Jean Baptiste MSW EMPLOYER RELATIONS REPRESENTATIVE - HOSPICE VISIT Social History Tobacco Use Types Packs/Day Years Used Date Smoking Tobacco: Never Assessed Sex and Gender Information Value Date Recorded Sex Assigned at Not on file Legal Sex Male 2:48 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
--- OUTSIDE RECORDS SUMMARY | 2024-08-13 04:55 | XMS_ITS | Encounter Summary ---
Author Organization [facility] Address [address] [place] [address] Phone Care Team Providers Care Miner Pick Name Role Phone Provider, None Primary Care Provider Mustapha Hall MD Unavailable [phone] Reason for Visit * Auth/Cert (Routine) Specialty Diagnoses / Procedures Referred By Samira yu Referred To Contact Referral ID Status Reason Start Date Expiration Date Visits Re quested Visits Authorized [id number] 1 1 Encounter Details Date Type Department Care Team (Latest Contact Info) Description 04/28/2024 1:00 PM CDT [facility] [address] [place] [address] Homa Bernabe RN [place] SN - HOSPICE ADMISSION Social History Tobacco Use Types Packs/Day Years Used Date Smoking Tobacco: Never Assessed Sex and Gender Information Value Date Recorded Sex Assigned at Not on file 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 Gender Identity Not on file Sexual Orientation Not on file documented as of this encounter Last Filed Vital Signs Vital Sign Reading Time Taken Comments Blood Pressure 106/58 04/28/2024 2:14 PM CDT Pulse 86 04/28/2024 2:14 PM CDT Temperature 36.6 ??C (97.9 ??F) 04/28/2024 2:14 PM CD T Respiratory Rate 16 04/28/2024 2:14 PM CDT Oxygen Saturation 97% 04/28/2024 2:14 PM CDT Inhaled Oxygen Concentration - - Weight - - Height - - Body Mass Index - - documented in this encounter Plan of Treatment Not on file documented as of this encounter Visit Diagnoses Not on filedocumented in this encounter Hospice Visit - Care Plan Visit Details Visit Type -SN - Hospice Adm ission Discipline -Custodial Problems Problem Description Start Date Status Goals Interve ntions HOSPICE SN GENERAL EDUCATION/INTERV ENTIONS Disciplines: Custodial Hospice SN General Education/Interventi ons 04/28/2024 Active - 1 problem intervention scheduled/documented in this visit Interventions Intervention Associated Problem/Goal Status Variance Visit Notes Hospice Admission Criteria Summary Problem:HOSPICE SN GENERAL EDUCATION/INTERVENTI ONS Completed Terminal Diagnosis Alzheimer's Dementia without behavioral disturbances. If cancer, is there metastasis? no If Alzheimer? s/Dementia FAST Score 7e: Unable to smile If Liver disease: the patient has Prolonged protime of more than 5 sec or INR >1.5 and serum albumin <2.5 no. If Liver disease: The patient has end stage liver disease and at least one of the following: n/a If liver disease supporting factors n/a If Renal Disease, patient has end stage renal disease and has elected to stop or not start dialysis no. If HIV (omega all that apply):n/a If HIV other factors: n/a Comorbidities/ Secondary Diagnoses: none Treatment history: Routine doctor visits, Aricept and Namenda. Description of clinical progression of disease: Pt requires assistance with grooming, dressing, toileting, and bathing. Evidence of functional decline: dependent for bathing, dependent for dressing and urinary/ bowel incontinence Description of recent functional decline: Pt has forgotten where the bathroom is and requires constant guidance, pt has had 3 falls in the last 3 months. Current devices/ treatments: None Frequent hospitalizations or ER visits: no BMI: 25 Nutritional status: Fair Patient/ family verbalize understanding of advanced directives in place: DNR Patient/ family instructed on terminal diagnosis of 6 months or less as determined by physician: Yes. Patient/ family elect palliative care with Hospice services. documented in this encounter Care Teams Miner Pick Relationship Specialty Start Date End Date Provider, None [place] PCP - General 04/27/24 Mustapha Cárdenas MD [address] [place] [address] PCP - Hospice Attending Provider 04/28/24 07/18/24 documented as of this encounter
--- OUTSIDE RECORDS SUMMARY | 2024-08-13 04:56 | XMS_ITS | Encounter Summary ---
Author Organization [facility] Address [address] [place] [address] Phone Care Team Providers Care Varying Exceptionalities Teacher Name Role Phone Ganesh Prince MD Primary Care Provider [phone] Encounter Details Date Type Department Care Team (Late st Contact Info) Description 01/29/[address] [place] [id number] Silvia Moraes Social History Tobacco Use Types Packs/Day Years Used Date Smoking Tobacco: Former Alcohol Use Standard Drinks/Week Comments Yes 0 (1 standard drink = 0.6 oz pur e alcohol) Sex and Gender Information Value Date Recorded Sex Assigned at Not on file Legal 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 Seema following referral from the nurse practitioner. She???s the PCG for her , Ganesh, who has YOAD. He???s 63 yrs old. They live in [place], [place]. Ganesh has been agitated and aggressive. The nurse practitioner is working on adjusting his medications. Right now, he's taking 75 mg of Seroquel three times per day. She reported that about an hourand a half before his next dose, his behaviors resurface. This CC recommended she communicate aboutthat with the nurse practitioner through Ganesh's [employer] account. Care options were discussed. The couple has approximately $800,000 in assets. Basic information about Medicaid in [place] was provided and Murtaza was encouraged to talk with an elder law city attorney about planning for medicaid. She does already have durable power of city attorney for healthcare and for finances, but they haven't done any other legal/financial planning. She can call [employer] to find out if they???re eligible for any state/local assistance. She???s interested in short-term respite options. This CC will send her a list of care communities to check with about availability and requirements. Action Plan: 1) Contact [facility] at [phone] to find out if you qualify for any state/local services. 2) Consider talking with an elder law city attorney about planning for Medicaid. A list is attached. 3) Communicate with Dianne Worthington via [facility] about how Ganesh is responding to the quetiapine. 4) Lists of area assisted living and skilled care communities are attached. Just today, a colleaguetold me that [facility] does a lot of short-term respite care. I don???t know if it would be a good fit for Ganesh, but would probably be worth looking into. documented in this encounter Plan of Treatment Not on file documented as of this encounter Visit Diagnoses Not on filedocumented in this encounter Care Teams Varying Exceptionalities Teacher Relationship Specialty Start Date End Date Ganesh Prince MD PCP - General 11/28/17 documented as of this encounter
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
--- OUTSIDE RECORDS SUMMARY | 2024-08-13 04:56 | XMS_ITS | Encounter Summary ---
Author Organization [facility] Address [address] [place] [address] Phone Care Team Providers Care Building Maintenance Mechanic Name Role Phone Ganesh Prince MD Primary Care Provider + [phone] Encounter Details Date Type Department Care Team (Late st Contact Info) Description 09/05/2018 Telephone [facility] Scheduling [address] [place] [address] Lashell Vasques BS Social History Tobacco Use Types Packs/Day Years Used Date Smoking Tobacco: Former Alcohol Use Standard Drinks/Week Comments Yes 0 (1 standard drink = 0.6 oz pur e alcohol) Sex and Gender Information Value Date Recorded Sex Assigned at Not on file 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 Card for appt today at 1pm with Dianne Worthington NP. Pt now has [facility] through . ING MANAGER documented in this encounter Plan of Treatment Not on file documented as of this encounter Visit Diagnoses Not on filedocumented in this encounter Care Teams Building Maintenance Mechanic Relationship Specialty Start Date End Date Ganesh Prince MD PCP - General 11/28/17 documented as of this encounter
--- OUTSIDE RECORDS SUMMARY | 2024-08-13 04:56 | XMS_ITS | Encounter Summary ---
Author Organization [facility] Address [address] [place] [address] Phone Care Team Providers Care Information Architect Name Role Phone Ganesh Prince MD Primary Care Provider [phone] Reason for Referral * Neurology (Routine) - Closed Specialty Diagnoses / Procedures Referred By Samira yu Referred To Contact Neurology Diagnoses 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 disturbance (HCC) Procedures EEG Yelitza Joseph NP Phone: tel: fax: Referral ID Status Reason Start Date Expiration Date Visits Re quested Visits Authorized [id number] Closed 12/29/2021 01/28/2023 1 1 Reason for Visit * Consultation (Routine) - Closed Specialty Diagnoses / Procedures Referred By Samira yu Referred To Contact Neurology Diagnoses 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 disturbance (HCC) Ganesh Prince MD Phone: tel: fax: [facility] (All Locations) Referral ID Status Reason Start Date Expiration Date V isits Requested Visits Authorized [id number] Closed Specialty Services Required 12/19/2021 01/18/2023 1 1 Encounter Details Date Type Department Care Team (Late st Contact Info) Description 12/27/2021 2:30 PM CDT Office Visit [facility] [address] [place] [address] 6th [address] [place] [address] Yelitza Joseph NP [phone] [facility] [facility] [phone] [place] [address] 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 disturbance (HCC) (Primary Dx); Impaired insight; Personal care impairment; Requires continuous supervision for activities of daily living (ADL) Social History Tobacco Use Types Packs/Day Years Used Date Smoking Tobacco: Former Alcohol Use Standard Drinks/Week Comments Yes 0 (1 standard drink = 0.6 oz pur e alcohol) Sex and Gender Information Value Date Recorded Sex Assigned at Not on file 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 Gender Identity Not on file Sexual Orientation Not on file documented as of this encounter Last Filed Vital Signs Vital Sign Reading Time Taken Comments Blood Pressure 109/66 12/27/2021 2:26 PM CDT Pulse 78 12/27/2021 2:26 PM CDT Temperature 36.8 ??C (98.3 ??F) 12/27/2021 2:26 PM C DT Respiratory Rate - - Oxygen Saturation 98% 12/27/2021 2:26 PM CDT Inhaled Oxygen Concentration - - Weight 83.9 kg (185 lb) 12/27/2021 2:26 PM CDT Height 167.6 cm (5' 6 ) 12/27/2021 2:26 PM CDT Body Mass Index 29.86 12/27/2021 2:26 PM CDT documented in this encounter Patient Instructions * Patient Instructions* Yelitza Joseph NP - 12/27/2021 3:07 PM CDT [facility] TODAY'S VISIT Provider: AIMEE Last (Nurse Practitioner) Thank you for coming to the [facility] today. We appreciate this opportunity to participate in your care. We have reviewed the concerns about your memory and thinking. Memory and thinking test scores today: MMSE (Mini Mental Status Exam): Mini-Mental Total Score ((out of 30): 16 A perfect score on this test is 30. A score of of between 27-30 is considered normal. A score of 24-26 is considered mildly impaired. A score of 20-23 is impaired. Scores below 20 show moderate impairment and 10 or below showssevere impairment. Diagnosis We think that the changes you and your family have observed in your memory and thinking are most likely caused by: Alzheimer's dementia It will be important to re-assess your memory in the future. We can compare your test results in the future to the test results from today so we can get a more accurate picture of how your memory haschanged. Medications: We recommend you take Namenda/memantine for memory, common side effects are dizziness, headache, constipation, diarrhea. This medication does not improve memory, but is thought to slow the progression of memory loss. This medication is FDA approved for moderate to severe cognitive impairment. The dose of this medication slowly increases over four weeks (titration/starter pack). Following completion of the starter pack, you will take a maintenance dose. Please call our office if you have any side effects. Additional Recommendations: Nutrition: We recommend that you eat a balanced diet, including fruits and vegetables daily and regular servings of fish. We recommend a heart healthy diet. Activity: We recommend that you engage in daily physical activity such as walking or stretching. Werecommend you do things that stimulate your mind, such as puzzles, books, working on hobbies, visiting with friends and relatives or engaging in other social and community activities. Sleep: Sleep can have a big effect on your memory and thinking. Make sure you get a good night's sleep every night. If you have trouble sleeping, make sure you follow these rules for basic sleep hygiene: -Get up at the same time every morning, regardless of how little or how poorly you sleep. -No napping during the day time. If naps are really necessary, nap for less than an hour and only nap before 3 PM. -Have a regular calm down time before going to bed. Do not work right up until bedtime. -Have a regular exercise schedule, as exercise helps consolidate sleep. -No caffeine for 6 hours before bedtime. -No watching T.V. or using the computer in your bedroom or at bedtime. -If you are not able to fall asleep after 20 minutes, get out of bed and do a relaxing activity fora few minutes. -Avoid taking medications like Tylenol PM, or Advil PM, these drugs can make memory and thinking worse. We recommend you do not drink alcohol, if you must drink, we recommend you limit alcohol to one drink per day, where a drink is defined as 12 oz of beer, 5 oz of wine, or 1.5 oz of spirits. Safety concerns: We recommend family oversee medications. Medication planners with alarms are sometimes helpful. We recommend The Medic Alert and Safe Return Program, from The Alzheimer's Association, please call [phone], or you can register online [email or web address]. 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 Legal: No legal concerns were discussed today. RESOURCES FOR ADDITIONAL INFORMATION AND SUPPORT Opportunities to participate in research can be found at: trialmatch.[employer].org Access TrialOffsite Care Resources online. For additional assistance, email TrialMatch@[employer].org or call 160.665.1980 (press 1 for clinical trials). ClinicalTrials.gov is a resource provided by the U.S. National Library of Medicine. You can look upclinical trials (research opportunities) online At clinicaltrials.gov Alzheimer's Association [facility] Chapter: ; (toll free); http://www.alz.org, The Alzheimer's Association 05/03 Helpline provides reliable information and support to all those who need assistance. Call toll-free anytime day or night at . Caregiver Guide: tips for caregivers of people with Alzheimer's dementia, www.smiley.nih.gov/Alzheimers /Publication/Zywmvj-vwnenr-kmkfpxfcjb-disease/about-guide [facility], [address] [place] [address], [place]. [id number], , Occupational Therapists who offers caregiver training, family support, and in home safety assessments at no cost. [facility]org [facility] Agency on Aging (serving [facility]) http://ssm rehab.[place].org/government/hslaaa.html [facility] Agency on Aging (serving [place], [facility] and [facility] http://www.[facility].org If you need to reach our office, please call our nurse at [phone], option 4, leave a message, this voicemail is checked several times per day. If you need to contact our professor of social work: Alan Be or Jose Angel Arriola, from the Alzheimer's Association, please call [phone] No future appointments. documented in this encounter Ordered Prescriptions Prescription Sig Dispense Quantity Refills Last Filled Start Date End Date memantine (Namenda Titration Fernando) tablet pack Use as directed for first month 1 each 12/27/2021 2 documented in this encounter Progress Notes * Yelitza Joseph NP - 12/27/2021 2:30 PM CDT [facility] OFFICE VISIT Yelitza REAL-NAVEEN (Nurse Practitioner) [facility] Department of Neurology Patient Name: GANESH MACIEL Medical Record Number (MRN): [id number] Date of (): 1960 Encounter Date: 12/27/2021 Referring MD: Dr. Ganesh Prince MD Primary Care Practitioner: Ganesh Dejesus MD CHIEF COMPLAINT Memory and thinking difficulty Collateral Source: Mirian, serves as the collateral source/sources (CS/CS's). The CS typically sees the patient daily. HISTORY OF PRESENT ILLNESS Mr. Maciel is a 61 y.o. gentleman who comes to the [facility] today for further evaluation of memory and thinking problems. He is in generally fair health. Dementia History: [place] Dr. Moore and [facility] with diagnosis of early onset Alzheimer Disease, onset 2013. Seen by Dr. Moore 12/27/2020 with further progression in memory and thinking difficulties. He is tolerating Donepezil/Aricept and escitalopram/Lexapro. Judgement and problem solving skills only fair. No longer able to manage simple chores. Interested in clinical trials. MMSE: 18, CDR: 2, SB: 10 TODAY'S VISIT: There have not been hospitalizations, or major medical illnesses since the last visit. Medications were reviewed, there were were no changes. Overall, the CS thinks memory and thinking problems have gotten worse, over the past 6-12 months. He currently has an ear infection and is being treated with amoxicillin. Short term memory has progressively declined. She will ask him to get something and forget when he goes into the next room. He doesn't want to shower. He cannot shave himself anymore. She takes him to a pollack once a week. He is never hungry. He is not losing weight. He snacks a lot. He has a hard time making a decision of what to eat. He is struggling to find what clothes to wear. They are in the middle of selling their house which makes it harder. He will miss loops when he puts his belt On. He would put his hoodies on backwards. He can take a shower by himself. He is showering about once aweek. His feels that she has enough support. She is going to retire in 6 months. She is movingcloser to her son. Where they are moving they will have walking paths. He loves to see people. He doesn't know a stranger. He does not like to be left alone. He struggles to use his cell phone. He might have a harder time answering it. He doesn't know how to function the TV. He doesn't know how to change the stations. He knows family members and all his friends. She is not worried about him wandering. She has a tracker on his phone. He could not make himself a bowl of cereal. He cant find things in the house that he wants. He is not putting any dishes away. He had a seizure last Sunday in thecar. He was shaking for two minutes. He was more confused following. He gets shaky and feels like he is going to pass out before. He has never been on a seizure medication. He has anxiety. She cant tell him more then three things at once. His is managing medications and appointment, finances. He is not as agitated as he once was. He is at high risk for being scammed. He talks more about things from the past. He would likely not be able to manage calling 911 in an emergency. The memory and thinking problems are consistent and have been slowly progressive. Caregiver State: mild stress at this time. We went over resources and supports for caregivers, discussed availability of our Electric Meter Tester from the Alzheimer's Association ACTIVE PROBLEMS Patient Active Problem List Diagnosis ??? Sleep apnea ??? Multiple-type hyperlipidemia ??? Vitamin D deficiency ??? Gout ??? Healthcare maintenance ??? Medication management ??? 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 JEANETTE (generalized anxiety disorder) ??? Anxiety and depression ??? 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 disturbance (HCC) ??? Hearing loss of left ear ??? Bilateral impacted cerumen PAST MEDICAL HISTORY Past Medical History: Diagnosis Date ??? Alzheimer's disease (HCC) ??? Anxiety ??? Gout gout ??? HX OTHER MEDICAL 1986 +ppd inh ??? HX OTHER MEDICAL 1986 aseptic meningitis ??? HX OTHER MEDICAL diastasis [...] Known Allergies MEDICATIONS Current Outpatient Medications: ??? amoxicillin (AMOXIL) 875 mg tablet, Take 1 tablet (875 mg total) by mouth 2 (two) times a day for 10 days, Disp: 20 tablet, Rfl: 0 ??? atorvastatin (LIPITOR) 10 mg tablet, Take 10 mg by mouth daily., Disp: , Rfl: 3 ??? donepeziL (ARICEPT) 10 mg tablet, TAKE 1 TABLET EVERY DAY WITH BREAKFAST, Disp: 90 tablet, Rfl:3 ??? escitalopram (LEXAPRO) 20 mg tablet, TAKE 1 TABLET (20 MG TOTAL) BY MOUTH DAILY, Disp: 90 tablet, Rfl: 3 ??? memantine (Namenda Titration Fernando) tablet pack, Use as directed for first month, Disp: 1 each, Rfl: 0 FAMILY & SOCIAL HISTORY Family History Problem [...] Tobacco Use ??? Smoking status: Former Smoker ??? Smokeless tobacco: Not on file Substance and Sexual Activity ??? Alcohol use: Yes ??? Drug use: Not on file ??? Sexual activity: Not on file Other Topics Concern ??? Not on file Social History Narrative Alcohol use : (Added by TW Conv) Social Determinants of Health Financial Resource Strain: Not on file Food Insecurity: Not on file Transportation Needs: Not on file Physical Activity: Not on file Stress: Not on file Social Connections: Not on file Intimate Partner Violence: Not on file Housing Stability: Not on file Review of Systems Constitutional: Negative. HENT: Negative. Eyes: Negative. Respiratory: Negative. Cardiovascular: Negative. Gastrointestinal: Negative. Genitourinary: Negative. Musculoskeletal: Negative. Skin: Negative. Neurological: Negative. Endo/Heme/Allergies: Negative. Psychiatric/Behavioral: Positive for memory loss. Medical Records Review: I reviewed [facility] notes and prior Neuropsychometric testing scores. [facility] Neurobehavioral Status Exam Results 09/05/2018 07/21/2019 12/27/2020 12/27/2021 Repository ICF signed? Yes No No Yes Verbal Fluency Total Score 14 14 12 (No Data) Larkspur Naming (15 item) Total Score 14 15 15 14 MMSE Score 22 26 18 16 Word List Memory Task 16 14 8 (No Data) Word List Recall 0 0 0 - Short Blessed Total Score - 9 21 24 Logical Memory Total Score 4 2 5 2 Trails A - Seconds to complete 36 36 53 180 Trails A - Errors 0 0 (No Data) (No Data) Trails B - Seconds to complete (No Data) 0 (No Data) (No Data) Trails B - Errors - 0 (No Data) - Total Score (out of 90) (No Data) 24 (No Data) (No Data) Digit Symbol Errors - 0 (No Data) - Lab Results Component Value Date TSH 2.38 01/28/2017 G9NEVLP 5.1 05/19/2013 Lab Results Component Value Date WBC 6.89 01/27/2017 HGB 12.7 (L) 01/27/2017 HCT 34.2 (L) 01/27/2017 MCV 88.8 01/27/2017 LABPLAT 158 01/27/2017 Lab Results Component Value Date GLUCOSE 86 02/26/2017 CALCIUM 10.0 02/26/2017 SODIUM 139 02/26/2017 POTASSIUM 4.4 02/26/2017 CO2 28 02/26/2017 CHLORIDE 103 02/26/2017 BUNSER 13 02/26/2017 CREATININE 0.86 02/26/2017 Lab Results Component Value Date ALT 17 02/21/2017 AST 20 02/21/2017 ALKPHOS 58 02/21/2017 BILITOT 0.6 02/21/2017 Lab Results Component Value Date VITB12 389 02/21/2017 PHYSICAL EXAMINATION BP 109/66 (BP Location: Right arm, Patient Position: Sitting) Pulse 78 Temp 36.8 ??C (98.3 ??F) Ht 167.6 cm (5' 6 ) Wt 83.9 kg (185 lb) SpO2 98% BMI 29.86 kg/m?? General Assessment There were no orthostatic complaints. Cranial Nerves Visual morin testing intact. Pupils were equal, round and reactive to light. Extraocular movementswere normal with smooth pursuit. Facial sensation was intact in all three divisions of the trigeminal nerve. Facial movement was symmetric. Hearing was Intact. Palate elevation was symmetric. Shoulder shrug and head turning were symmetric. Tongue protrusion was midline. Motor Motor exam revealed normal bulk, normal tone, and normal strength throughout. Fine finger movementswere normal . There was no pronator drift. Tremor was absent, bradykinesia was absent. Sensation Sensation was intact to light touch. Coordination Rdovia-rtnf-sidmic testing was normal. Reflexes Reflexes were symmetric at the biceps, brachioradialis and knees. Gait Gait was slow and poor balance He was fluent throughout the interview and examination. NEUROBEHAVIORAL TESTING REPORT On formal neurobehavioral testing, which took from [id number] , scores were in the normal to mildly impaired range on tests of semantic memory ([place]arks[place] Naming, verbal fluency). Scores were in the mildly impaired range on tests of episodic memory (logical memory). Scores were in the moderately impaired range on tests of speeded psychomotor performance (trailmaking). On more global tests, MMSE was 16. Episodic recall was 0/5 and 0/3. These findings are consistent with moderately impaired. He was not able to subtract serials threes, was not able to calculate the number of quarters in $6.75, was not able to draw a clock. My interpretation and reporting of these results took 15 minutes. I reviewed the testing with the CS (CS'S) and patient and compared prior testing scores. GDS (Geriatric Depression Screen) was administered today, this was reviewed in the psychometric package- He endorsed 0 items on the GDS. Neurobehavioral test results: [facility] Neurobehavioral Status Exam Results 09/05/2018 07/21/2019 12/27/2020 12/27/2021 Repository ICF signed? Yes No No Yes Verbal Fluency Total Score 14 14 12 (No Data) Larks[place] Naming (15 item) Total Score 14 15 15 14 MMSE Score 22 26 18 16 Word List Memory Task 16 14 8 (No Data) Word List Recall 0 0 0 - Short Blessed Total Score - 9 21 24 Logical Memory Total Score 4 2 5 2 Trails A - Seconds to complete 36 36 53 180 Trails A - Errors 0 0 (No Data) (No Data) Trails B - Seconds to complete (No Data) 0 (No Data) (No Data) Trails B - Errors - 0 (No Data) - Total Score (out of 90) (No Data) 24 (No Data) (No Data) Digit Symbol Errors - 0 (No Data) - Clinical Dementia Rating: [facility] CDR/DIAGNOSIS NEW 09/05/2018 07/21/2019 12/27/2020 12/27/2021 Repository ICF signed? Yes No No Yes Memory 1 2 2 1 Orientation 1 1 2 1 Judgement & Problem Solving 1 2 1 2 Community Affairs 0 1 2 1 Home & Hobbies 1 2 2 2 Personal Care 1 1 1 1 Global Score 1 1 2 1 Sum of Boxes 5 9 10 8 Year of Onset 2013 2013 2013 - Alert for Potential Transmissible Disorders No No No - AD Dementia Alzheimer Disease Dementia Alzheimer Disease Dementia Alzheimer Disease Dementia - Mood disorder (any type) Active - Active - Alcoholism - Remote - - ASSESSMENT Mr. Maciel is a 61 y.o. gentleman with a history of slowly progressive cognitive changes, consistent with a clinical diagnosis of Alzheimer's dementia. His cognitive testing has declined. His has noticed further decline in activites of daily living as well. He is currently tolerating Donepezil/Aricept. He is moderately impaired. We will start memantine titration to 10 mg twice a day. His is his primary caregiver. She feels like she has enough help at this time. They will be moving into a condo in the near future. Once they move we can send a referral into [facility]. Our social work team printed off support groups in the area for her. He had possible seizure activity. I will discuss with Dr. Moore possible EEG or starting antiepileptic. Addendum: Will order routine EEG. PLAN OF CARE: (Shared with CS, CS's) Referral made to community resources (no resources indicated at this time) 1. 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 disturbance (HCC) 2. Impaired insight 3. Personal care impairment 4. Requires continuous supervision for activities of daily living (ADL) Orders Placed This Encounter ??? memantine (Namenda Titration Fernando) tablet pack Sig: Use as directed for first month Dispense: 1 each Refill: 0 Patient Instructions [facility] TODAY'S VISIT Provider: AIMEE Last (Nurse Practitioner) Thank you for coming to the [facility] today. We appreciate this opportunity to participate in your care. We have reviewed the concerns about your memory and thinking. Memory and thinking test scores today: MMSE (Mini Mental Status Exam): Mini-Mental Total Score ((out of 30): 16 A perfect score on this test is 30. A score of of between 27-30 is considered normal. A score of 24-26 is considered mildly impaired. A score of 20-23 is impaired. Scores below 20 show moderate impairment and 10 or below showssevere impairment. Diagnosis We think that the changes you and your family have observed in your memory and thinking are most likely caused by: Alzheimer's dementia It will be important to re-assess your memory in the future. We can compare your test results in the future to the test results from today so we can get a more accurate picture of how your memory haschanged. Medications: We recommend you take Namenda/memantine for memory, common side effects are dizziness, headache, constipation, diarrhea. This medication does not improve memory, but is thought to slow the progression of memory loss. This medication is FDA approved for moderate to severe cognitive impairment. The dose of this medication slowly increases over four weeks (titration/starter pack). Following completion of the starter pack, you will take a maintenance dose. Please call our office if you have any side effects. Additional Recommendations: Nutrition: We recommend that you eat a balanced diet, including fruits and vegetables daily and regular servings of fish. We recommend a heart healthy diet. Activity: We recommend that you engage in daily physical activity such as walking or stretching. Werecommend you do things that stimulate your mind, such as puzzles, books, working on hobbies, visiting with friends and relatives or engaging in other social and community activities. Sleep: Sleep can have a big effect on your memory and thinking. Make sure you get a good night's sleep every night. If you have trouble sleeping, make sure you follow these rules for basic sleep hygiene: -Get up at the same time every morning, regardless of how little or how poorly you sleep. -No napping during the day time. If naps are really necessary, nap for less than an hour and only nap before 3 PM. -Have a regular calm down time before going to bed. Do not work right up until bedtime. -Have a regular exercise schedule, as exercise helps consolidate sleep. -No caffeine for 6 hours before bedtime. -No watching T.V. or using the computer in your bedroom or at bedtime. -If you are not able to fall asleep after 20 minutes, get out of bed and do a relaxing activity fora few minutes. -Avoid taking medications like Tylenol PM, or Advil PM, these drugs can make memory and thinking worse. We recommend you do not drink alcohol, if you must drink, we recommend you limit alcohol to one drink per day, where a drink is defined as 12 oz of beer, 5 oz of wine, or 1.5 oz of spirits. Safety concerns: We recommend family oversee medications. Medication planners with alarms are sometimes helpful. We recommend The Medic Alert and Safe Return Program, from The Alzheimer's Association, please call [phone], or you can register online [email or web address]. 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 Legal: No legal concerns were discussed today. RESOURCES FOR ADDITIONAL INFORMATION AND SUPPORT Opportunities to participate in research can be found at: trialmatch.alz.org Access TrialMatch online. For additional assistance, email or call [phone] (press 1 for clinical trials). ClinicalTrials.gov is a resource provided by the U.S. National Library of Medicine. You can look upclinical trials (research opportunities) online At clinicaltrials.gov Alzheimer's Association [facility] Chapter: ; (toll free); http://www.alz.org, The Alzheimer's Association 05/03 Helpline provides reliable information and support to all those who need assistance. Call toll-free anytime day or night at . Caregiver Guide: tips for caregivers of people with Alzheimer's dementia, www.smiley.nih.gov/Alzheimers /Publication/Jfcjwe-jpjakx-evunixnbgl-disease/about-guide [facility], [address] [place] [address]. [address], , Occupational Therapists who offers caregiver training, family support, and in home safety assessments at no cost. [facility]org [facility] on Aging (serving [facility]) http://[facility].[place].[facility]/government/[facility].html [facility] Agency on Aging (serving [facility] and [facility] http://www.[facility].org If you need to reach our office, please call our nurse at [phone], option 4, leave a message, this voicemail is checked several times per day. If you need to contact our professor of social work: Alan Be or Jose Angel Arriola, from the Alzheimer's Association, please call [phone] No future appointments. I spent 45 minutes,face to face with Mr. Maciel and the CS/CS's, for assessment of, and care planning for this patient who has cognitive impairment. Over 50 % of the time was spent on counseling, and coordination of care. See after visit summary for discussion/education topic specifics to today's discussion. A written copy of discussion topics was provided to the patient and family, all questions were answered. Portions of this note were copied forward from a prior encounter and updated to reflect the currentclinical condition. Yelitza Joseph MSN, CASHIER CLERK-BC [facility] [address] [place], [place], [address] [place] [address] documented in this encounter Miscellaneous Notes * Addendum Note - Yelitza Joseph NP - 12/27/2021 2:30 PM CDTAddended by: YELITZA JOSEPH on: 12/29/2021 01:11 PM Modules accepted: Orders documented in this encounter Plan of Treatment Not on file documented as of this encounter Results * EEG (01/13/2022 2:13 PM CDT) Anatomical Region Laterality Modality EEG Narrative 01/13/2022 4:23 PM CDT Routine EEG Report Patient Name: Ganesh Maciel [facility] Medical Record Number (MRN): [id number] [facility] Record: [id number] Date of (): 1960 EEG Date: 01/13/2022 Ordering Provider: Yelitza Joseph NP CC: Ganesh Prince Start Time: 01/13/2022 1:36:51 PM ? End Time: 01/13/2022 1:57:53 PM Introduction: Mr. Maciel is a 61 y.o. male with a history of memory difficulty, presenting with seizure-like symptoms. The EEG was performed to evaluate for seizures. This is a 32 channel EEG recording acquired on a [employer] EEG-1200 acquisition system. Scalp electrodes were placed according to the international 10-20 System. The analog EEG was filtered from 1-70 Hz and digitally sampled at 200 Hz. The record was then reformatted for review in bipolar and referential montages. EEG Description: The awake background included a poorly formed 10 Hz posterior rhythm. The background also included diffuse admixed theta and polymorphic delta activity, slightly more prominent on the right. During drowsiness, identified by ocular signs and alpha attenuation, there was intermittent, diffuse, asynchronous theta activity admixed with 2-4 Hz polymorphic frontotemporal delta activity. Hyperventilation was not performed. Photic strobe stimulation elicited no abnormalities. There were no epileptiform abnormalities. Interpretation: The EEG was abnormal due to 1) right hemisphere slowing, and 2) mild generalized slowing. Focal slowing indicates focal cerebral dysfunction. A focal structural or physiologic abnormality should be considered. Generalized slowing indicates diffuse cerebral dysfunction as seen in metabolic, toxic, or diffuse or multifocal structural abnormalities. By signing this report, the attending Electroencephalographer certifies that he/she personally reviewed the electrodiagnostics study and has edited this report to fully conform with his/her intent. Signing Attending: Alpesh Nance MD PhD us Yelitzamichael Joseph NEUROLOGY ORDERABLES Final Result documented in this encounter Visit Diagnoses Diagnosis 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 disturbance (HCC)- Primary Impaired insight Personal care impairment Requires continuous supervision for activities of daily living (ADL) 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 disturbance (HCC) documented in this encounter Discontinued Medications Medication Sig Discontinue Reason Start Date End Da te terbinafine (LamiSIL) 250 mg tablet 12/23/2020 12/27/2021 documented as of this encounter Orders Outpatient Referral Count Last Ordered Date Fir st Ordered Date AMB REFERRAL TO NEUROLOGY 1 12/27/2021 documented in this encounter Care Teams Information Architect Relationship Specialty Start Date End Date Ganesh Prince MD PCP - General 11/28/17 documented as of this encounter
--- OUTSIDE RECORDS SUMMARY | 2024-08-13 04:56 | XMS_ITS | Encounter Summary ---
Author Organization [facility] Address [address] [place] [address] Phone Care Team Providers Care Director Pediatric Name Role Phone Ganesh Prince MD Primary Care Provider [phone] Encounter Details Date Type Department Care Team (Late st Contact Info) Description 07/14/[address] [place] [phone] Silvia Moraes Social History Tobacco Use Types Packs/Day Years Used Date Smoking Tobacco: Former Alcohol Use Standard Drinks/Week Comments Yes 0 (1 standard drink = 0.6 oz pur e alcohol) Sex and Gender Information Value Date Recorded Sex Assigned at Not on file Legal Sex Male 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 O TECHNICIAN documented in this encounter Plan of Treatment Not on file documented as of this encounter Visit Diagnoses Not on filedocumented in this encounter Care Teams Director Pediatric Relationship Specialty Start Date End Date Ganesh Prince MD PCP - General 11/28/17 documented as of this encounter
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
--- OUTSIDE RECORDS SUMMARY | 2024-08-13 04:56 | XMS_ITS | Encounter Summary ---
Author Organization [facility] Address [address] [place] [address] Phone Care Team Providers Care Parent Aide Name Role Phone Ganesh Prince MD Primary Care Provider + [phone] Encounter Details Date Type Department Care Team (Late st Contact Info) Description 11/21/[address] [place] [address] Alan Be MSW Social History Tobacco Use Types Packs/Day Years Used Date Smoking Tobacco: Former Alcohol Use Standard Drinks/Week Comments Yes 0 (1 standard drink = 0.6 oz pur e alcohol) Sex and Gender Information Value Date Recorded Sex Assigned at Not on file 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 Mirian states she is looking for places to help her when she needs rest from caregiving. She stated that she was not in a position to talk long on the phone today. This SW suggested that she connect with [facility]. This SW suggested their ADC, [employer] Caregiver Class, and Support Group. -YOVANI Izquierdo documented in this encounter Plan of Treatment Not on file documented as of this encounter Visit Diagnoses Not on filedocumented in this encounter Care Teams Parent Aide Relationship Specialty Start Date End Date Ganesh Prince MD PCP - General 11/28/17 documented as of this encounter
--- OUTSIDE RECORDS SUMMARY | 2024-08-13 04:56 | XMS_ITS | Encounter Summary ---
Author Organization [facility] Address [address] [place] [address] Care Team Providers Care Hearing Officer Name Role Phone Ganesh Prince MD Primary Care Provider [phone] Reason for Referral * MRI/CAT/PET Scan (Routine) - Closed Specialty Diagnoses / Procedures Referred By Contac t Referred To Contact Radiology Diagnoses Abdominal pain, unspecified abdominal location Procedures CT Abdomen Pelvis W Contrast Ganesh Prince MD Phone: tel: fax: [address] [address] Referral ID Status Reason Start Date Expiration Date Visits Re quested Visits Authorized [id number] Closed 12/07/2022 01/06/2023 1 1 Reason for Visit * MRI/CAT/PET Scan (Routine) - Closed Specialty Diagnoses / Procedures Referred By Contac t Referred To Contact Radiology Diagnoses Abdominal pain, unspecified abdominal location Procedures CT Abdomen Pelvis W Contrast Ganesh Prince MD Phone: tel: fax: [address] [address] Referral ID Status Reason Start Date Expiration Date Visits Re quested Visits Authorized [id number] Closed 12/07/2022 01/06/2023 1 1 Encounter Details Date Type Department Care Team (Latest Contact Info) Description 12/07/2022 2:25 PM CDT - 12/07/2022 11:59 PM CDT Hospital Encounter [facility] [address] [place] [id number] Abdominal pain, unspecified abdominal location Discharge Disposition: Discharge to home or self care Social History Tobacco Use Types Packs/Day Years Used Date Smoking Tobacco: Former Alcohol Use Standard Drinks/Week Comments Yes 0 (1 standard drink = 0.6 oz pur e alcohol) Sex and Gender Information Value Date Recorded Sex Assigned at Not on file 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 3 08/17/2018 3 donepeziL (ARICEPT) 10 mg tablet Take 1 tablet (10 mg total) by mouth daily after breakfast 90 tablet 3 01/24/2022 3 memantine (NAMENDA) 10 mg tablet TAKE 1 TABLET EVERY DAY 90 tablet 3 11/29/2022 4 documented as of this encounter Discharge Disposition Disposition Code Departure Means Destination Discharge to home or self care documented in this encounter Plan of Treatment Not on file documented as of this encounter Procedures Procedure Name Priority Date/Time Associated Diagnosis Comments CT ABDOMEN PELVIS W CONTRAST Schedule Routine, Read Routine (OP Routine) 12/07/2022 3:14 PM CDT Abdominal pain, unspecified abdominal location documented in this encounter Results * CT Abdomen Pelvis W Contrast (12/07/2022 3:14 PM CDT) Anatomical Region Laterality Modality Body N/A Computed Tomogra phy 12/07/2022 10:0 7 PM CDT Narrative 12/07/2022 11:42 PM CDT EXAM DESCRIPTION: ?? CT ABDOMEN PELVIS W CONTRAST REASON FOR STUDY: ?? unsp abd pain ?? Right upper quad pain for 1 month that is now improving ?? TECHNIQUE: CT scan of the abdomen and pelvis performed with intravenous and ?? without ??oral contrast using helical scanning technique with dynamic intravenous contrast injection. Reconstructed coronal and sagittal MPR images reviewed. All images stored on PACS. Automated exposure control was used as a dose optimization technique for this examination. CONTRAST TYPE/DOSE: ?? 100mL of IOVERSOL 350 MG IODINE/ML INTRAVENOUS SYRINGE ?? injected via ?? intravenous COMPARISON: ?? CT of the abdomen and pelvis dated 01/27/2017. REFERENCE: Per ACR white paper recommendations, unless otherwise specified no follow-up imaging is recommended for incidental renal and adrenal lesions per consensus recommendations based on imaging criteria. Further lab evaluation could be pursued based on clinical findings. FINDINGS: LOWER CHEST: ?? No significant pulmonary abnormalities. No effusion. LIVER: ?? Normal size. ??No identified cystic or solid masses. GALLBLADDER: ?? Small stones or sludge. ??No gallbladder wall thickening or pericholecystic fluid. BILE DUCTS: ?? No intrahepatic or extrahepatic ductal dilatation. SPLEEN: ?? Normal size. ??No focal lesions. PANCREAS: ?? No identified cystic or solid masses. No significant calcifications. No adjacent inflammation or peripancreatic fluid collections. Pancreatic duct not dilated. ?? ADRENALS: ?? Normal. KIDNEYS/URINARY TRACT: ?? Small benign right renal cortical cysts. ??No enhancing renal lesions noted. ??No visualized stones. No hydronephrosis or hydroureter. Symmetric enhancement. ?Urinary bladder is unremarkable. GI: ?? No dilated bowel loops. No obvious wall thickening. ??Normal appendix. ?? Mild scattered colonic diverticula of the descending and sigmoid colon without evidence of acute diverticulitis. PERITONEUM: ?? No ascites or free air. ?? Tiny fat containing umbilical hernia. RETROPERITONEUM: ?? No mass or adenopathy. REPRODUCTIVE: ?? Coarse calcification seen within the prostate. ??Otherwise, unremarkable. VASCULATURE: Menq-qk-tskopotn aortoiliac atherosclerosis. ?? No abdominal aortic aneurysm. MUSCULOSKELETAL: ?? No acute abnormality. ?? Mild to moderate degenerative changes of the spine and bilateral hip joints. OTHER: ?? No other abnormality. IMPRESSION: 1. ?? No acute intra-abdominal/pelvic abnormality. 2. ??Additional findings as detailed. THIS IS AN ELECTRONICALLY VERIFIED FINAL REPORT 12/07/2022 11:42 PM - Electronically signed by ??Ganesh Hall M.D. MF: BREANNA D: ??12/07/2022 11:42 PM T: ??12/07/2022 11:42 PM Report ID: [id number] Reading Location: ??[id number] Procedure Note Isabel, Ganesh Russel, DO - 12/07/2022 EXAM DESCRIPTION: CT ABDOMEN PELVIS W CONTRAST REASON FOR STUDY: unsp abd pain Right upper quad pain for 1 month that is now improving TECHNIQUE: CT scan of the abdomen and pelvis performed with intravenousand without oral contrast using helical scanning technique with dynamic intravenous contrast injection. Reconstructed coronal and sagittal MPRimages reviewed. All images stored on PACS. Automated exposure control was used as a dose optimization technique forthis examination. CONTRAST TYPE/DOSE: 100mL of IOVERSOL 350 MG IODINE/ML INTRAVENOUSSYRINGE injected via intravenous COMPARISON: CT of the abdomen and pelvis dated 01/27/2017. REFERENCE: Per ACR white paper recommendations, unless otherwise specifiedno follow-up imaging is recommended for incidental renal and adrenal lesionsper consensus recommendations based on imaging criteria. Further labevaluation could be pursued based on clinical findings. FINDINGS: LOWER CHEST: No significant pulmonary abnormalities. No effusion. LIVER: Normal size. No identified cystic or solid masses. GALLBLADDER: Small stones or sludge. No gallbladder wall thickening or pericholecystic fluid. BILE DUCTS: No intrahepatic or extrahepatic ductal dilatation. SPLEEN: Normal size. No focal lesions. PANCREAS: No identified cystic or solid masses. No significant calcifications. No adjacent inflammation or peripancreatic fluidcollections. Pancreatic duct not dilated. ADRENALS: Normal. KIDNEYS/URINARY TRACT: Small benign right renal cortical cysts. No enhancing renal lesions noted. No visualized stones. No hydronephrosis or hydroureter. Symmetric enhancement. Urinary bladder is unremarkable. GI: No dilated bowel loops. No obvious wall thickening. Normalappendix. Mild scattered colonic diverticula of the descending and sigmoid colonwithout evidence of acute diverticulitis. PERITONEUM: No ascites or free air. Tiny fat containing umbilicalhernia. RETROPERITONEUM: No mass or adenopathy. REPRODUCTIVE: Coarse calcification seen within the prostate. Otherwise, unremarkable. VASCULATURE: Izhs-ok-fbzmqqos aortoiliac atherosclerosis. No abdominal aortic aneurysm. MUSCULOSKELETAL: No acute abnormality. Mild to moderate degenerative changes of the spine and bilateral hip joints. OTHER: No other abnormality. IMPRESSION: 1. No acute intra-abdominal/pelvic abnormality. 2. Additional findings as detailed. THIS IS AN ELECTRONICALLY VERIFIED FINAL REPORT 12/07/2022 11:42 PM - Electronically signed by Ganesh Hall M.D. MF: BREANNA Report ID: [id number] Reading Location: [place] [address] Ganesh Prince MD IM CT PROCEDURES Final Resu lt documented in this encounter Visit Diagnoses Diagnosis Abdominal pain, unspecified abdominal location documented in this encounter Administered Medications Inactive Administered Medications - up to 3 most recent administrations Medication Order MAR Action Action Date Dose Rate Site ioversoL (OPTIRAY 350) syringe 100 mL 100 mL, intravenous, Once in imaging, contrast, Starting on Cathie 12/07/22 at 1507, For 1 dose Contrast Given 12/07/2022 3:08 PM CDT 100 mL documented in this encounter Orders Medications Ordered That Dick ht Not Have Been Administered Count Last Ordered Date First Ordered Date ioversoL (OPTIRAY 350) syringe 100 mL 1 documented in this encounter Care Teams Hearing Officer Relationship Specialty Start Date End Date Ganesh Prince MD PCP - General 11/28/17 documented as of this encounter
--- OUTSIDE RECORDS SUMMARY | 2024-08-13 04:56 | XMS_ITS | Referral Summary ---
Author Organization [facility] Address [address] [place] [address] Care Team Providers Care Entertainment & Media Correspondent Name Role Phone Ganesh Prince MD Primary Care Provider [phone] Encounters Date Type Department Care Team Description 07/22/2024 3:42 AM SOIL SCIENCE TECHNICAL OFFICER - 07/22/2024 7:51 AM [facility] Emergency Department [address] [place] [address] Yoanna Ugarte MD Closed head injury, initial encounter (Primary Dx) Discharge Disposition: Discharge to home or self care from Last 3 Months Allergies No known active allergies Medications escitalopram (LEXAPRO) 20 mg tabletIndicatio ns:Anxiety with Depression TAKE 1 TABLET (20 MG TOTAL) BY MOUTH DAILY 90 tablet 3 3 Active donepeziL (ARICEPT) 10 mg tablet Take 1 tablet (10 mg total) by mouth daily after breakfast 90 tablet 3 3 Active LORazepam (ATIVAN) 0.5 mg tablet Take 1 tablet (0.5 mg total) by mouth 2 (two) times a day as needed 4 Active memantine (NAMENDA) 10 mg tablet Take 1 tablet (10 mg total) by mouth daily 90 tablet 3 4 Active QUEtiapine (SEROquel) 50 mg tablet Take 1 tablet (50 mg total) by mouth 3 (three) times a day For agitation 180 tablet 6 4 Active Active Problems Problem Noted Date Diagnosed Date 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 04/24/2024 Assessment & Plan (04/24/2024 3:36 PM CDT): Increase quetiapine/Seroquel to 100 mg TID, continue lorazepam 0.5 mg TID Consider placement Hospice/ palliative evaluation met with [place] Worker Vero Moraes for resources and support Hearing loss of left ear 11/20/2019 Assessment & Plan (11/20/2019 10:54 AM CDT): Avoid ear cleaning techniques Avoid water to ears Call if hearing still feels muffled after the weekend for hearing test Bilateral impacted cerumen 11/20/2019 Assessment & Plan (11/20/2019 10:54 AM CDT): Avoid ear cleaning techniques Avoid water to ears Call if hearing still feels muffled after the weekend for hearing test Anxiety and depression 09/05/2018 Healthcare maintenance 03/05/2017 Multiple-type hyperlipidemia 07/20/2016 Overview (11/17/2016): MIXED HYPERLIPIDEMIA Sleep apnea 12/27/2013 Overview (11/16/2016): Sleep apnea Gout 12/27/2013 Overview (11/17/2016): GOUT NOS Vitamin D deficiency 05/30/2012 Overview (11/17/2016): VITAMIN D DEFICIENCY NOS Resolved Problems Problem Noted Date Diagnosed Date Resolved Date Late onset Alzheimer's disea se without behavioral disturbance 09/05/2018 07/21/2019 Early onset Alzheimer's katharina ntia without behavioral disturbance 09/05/2018 04/24/2024 Assessment & Plan (12/27/2020 4:45 PM CDT): Continue Aricept 10, Lexapro 20 Interested in clinical trials should he qualify. Discussed Aducanumab (anti-amyloid antibody infusion) possible FDA approval this summer. Assessment & Plan (07/21/2019 5:31 PM SOIL SCIENCE TECHNICAL OFFICER): Continue donepezil 10mg daily. Increase escitalopram to 20mg daily to better address mood symptoms. Will hold off on memantine for now as it can contribute to sleepiness. Check EEG given spells of terrible smells, feeling cold, dizziness and being out of it for 30 minutes. Recommend holding off the Meclizine and/or dramamine if possible. 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 03/05/2017 01/23/2024 JEANETTE (generalized anxiety disorder) 03/05/2017 01/23/2024 Immunizations Name Administration Dates Next Due Influenza, Quadrivalent, Spl it, Preservative Free, Intradermal 05/02/2016,07/05/2015 Influenza, Split 06/02/2013, 2,05/23/2011,2009 Influenza, Trivalent, Recomb inant, Egg Free, Preservative Free, Antibiotic Free, IM (FLUBLOK) 06/16/2014 Tdap 04/20/2008 Social History Tobacco Use Types Packs/Day Years Used Date Smoking Tobacco: Former Tobacco Cessation:Counseling Given: Not Answered Alcohol Use Standard Drinks/Week Comments Yes 0 (1 standard drink = 0.6 oz pur e alcohol) Sex and Gender Information Value Date Recorded Sex Assigned at Not on file Legal Sex Male 8:13 AM SOIL SCIENCE TECHNICAL OFFICER Gender Identity Not on file Sexual Orientation Not on file Last Filed Vital Signs Vital Sign Reading Time Taken Comments Blood Pressure 106/69 07/22/2024 6:00 AM SOIL SCIENCE TECHNICAL OFFICER Pulse 74 07/22/2024 6:00 AM SOIL SCIENCE TECHNICAL OFFICER Temperature 36.9 ??C (98.4 ??F) 07/22/2024 1 2:22 AM SOIL SCIENCE TECHNICAL OFFICER Respiratory Rate 18 07/22/2024 5:00 AM SOIL SCIENCE TECHNICAL OFFICER Oxygen Saturation 95% 07/22/2024 6:00 AM SOIL SCIENCE TECHNICAL OFFICER Inhaled Oxygen Concentration - - Weight 72.1 kg (158 lb 15.2 oz) 024 12:22 AM SOIL SCIENCE TECHNICAL OFFICER Height 167.6 cm (5' 5.98 ) 07/22/2024 1 2:22 AM SOIL SCIENCE TECHNICAL OFFICER Body Mass Index 25.67 07/22/2024 12:22 AM SOIL SCIENCE TECHNICAL OFFICER Plan of Treatment Not on file Procedures Procedure Name Priority Date/Time Associated Diagnosis Comments URINALYSIS AND REFLEX TO MICROSCOPIC AND CULTURE STAT 07/22/2024 7:21 AM SOIL SCIENCE TECHNICAL OFFICER CT HEAD WO CONTRAST ED 07/22/2024 5 :47 AM SOIL SCIENCE TECHNICAL OFFICER EGFR STAT 07/22/2024 12:43 AM SOIL SCIENCE TECHNICAL OFFICER DIFFERENTIAL AUTO STAT 07/22/2024 12: 43 AM SOIL SCIENCE TECHNICAL OFFICER COMPREHENSIVE METABOLIC PANEL STAT 07/22/2024 12:43 AM SOIL SCIENCE TECHNICAL OFFICER CBC WITH AUTO DIFFERENTIAL STAT 07/22/2024 12:43 AM SOIL SCIENCE TECHNICAL OFFICER CT ABDOMEN PELVIS W CONTRAST Schedule Routine, Read Routine (OP Routine) 12/07/2022 3:14 PM CDT Abdominal pain, unspecified abdominal location PSA SCREENING Routine 03/14/2016 COLONOSCOPY Routine 01/03/2012 from Last 3 Months or Most Recently Relevant to Health Maintenance Results * Urinalysis reflex to microscopic and culture Urine (07/22/2024 7:21 AM SOIL SCIENCE TECHNICAL OFFICER) Color, ur Yellow Yellow Clarity, ur Clear Clear [facility] ([facility]) Specific gravity, ur 1.021 1.003 - 1.030 [facility] ([facility]) pH, urine 6.5 [facility] ([facility]) Comment: Interpretive Data ? Urine pH is affected by diet, medications, systemic acid-base disturbances, and renal tubular function. ??pH may affect urinary stone formation. ??For example, urine pH below 6.0 may help reduce the tendency for calcium phosphate stones and pH greater than 6.0 may reduce the tendency for uric acid stone formation. Source: [employer] Current Interpretive Data was last revised on 2017 Protein, ur ql Trace Negative [facility] ([facility]) Glucose, ur ql Negative Negative [facility] ([facility]) Ketones, ur Trace Negative [facility] ([facility]) Bilirubin, ur Negative Negative [facility] ([facility]) Blood, ur Negative Negative [facility] ([facility]) Urobilinogen, ur <2.0 <2.0 mg/dL [facility] ([facility]) Nitrite, ur Negative Negative [facility] ([facility]) Leukocyte esterase, ur Negative Negative [facility] ([facility]) UA reflex comment Reflex conditions for microscopic UA and culture not met. [facility] ([facility]) Urine 07/22/2024 7:21 AM SOIL SCIENCE TECHNICAL OFFICER 07/22/2024 7:23 AM SOIL SCIENCE TECHNICAL OFFICER Saadia BALLESTEROS LAB MICROBIOLOGY - GENERAL GABE HARRISON Final Result [facility] ([place]) 1 [facility] [place] [address] * CT Head WO Contrast (07/22/2024 5:47 AM SOIL SCIENCE TECHNICAL OFFICER) Anatomical Region Laterality Modality Head and Neck N/A Computed Tomogra phy 07/22/2024 6:37 AM SOIL SCIENCE TECHNICAL OFFICER Narrative 07/22/2024 6:39 AM SOIL SCIENCE TECHNICAL OFFICER EXAM DESCRIPTION: ?? CT HEAD WO CONTRAST REASON FOR STUDY: ?? Head trauma, moderate-severe ?? Patient fell and struck head last night. No loss of consciousness. ?? TECHNIQUE: Axial images acquired through the brain without intravenous contrast. ??Coronal and sagittal reformats were performed. ??Images stored on PACS. ??Automated mA/kV exposure control was used as a dose optimization technique for this examination and patient examination was performed in strict accordance with principles of ALARA. COMPARISON: ?? None. FINDINGS: BRAIN: ?? There is no midline shift, mass or mass effect. The ventricles, cisterns and sulci are globally and proportionally prominent consistent with atrophy. There is normal differentiation of the lan-white matter. There is no intracranial hemorrhage. ?There is decreased attenuation in the periventricular white matter, nonspecific, but likely related to small vessel ischemic change. ?? EXTRA-AXIAL SPACES: ?? No fluid collections. No masses. CALVARIUM: ?? No fracture. SINUSES/MASTOIDS: ?? No fluid or mucosal thickening. ORBITS: ?? No significant abnormality. OTHER: ?? No other significant abnormality. IMPRESSION: No acute intracranial abnormality. Global atrophy and white matter changes consistent with small-vessel ischemic disease. THIS IS AN ELECTRONICALLY VERIFIED FINAL REPORT 07/22/2024 6:39 AM - Electronically signed by ??Mirta Bell M.D. SN: D: ??07/22/2024 6:39 AM T: ??07/22/2024 6:39 AM Report ID: [id number] Reading Location: ??[id number] Procedure Note Mirta Bell MD - 07/22/2024 EXAM DESCRIPTION: CT HEAD WO CONTRAST REASON FOR STUDY: Head trauma, moderate-severe Patient fell and struck head last night. No loss of consciousness. TECHNIQUE: Axial images acquired through the brain without intravenous contrast. Coronal and sagittal reformats were performed. Images storedon PACS. Automated mA/kV exposure control was used as a dose optimization technique for this examination and patient examination was performed instrict accordance with principles of ALARA. COMPARISON: None. FINDINGS: BRAIN: There is no midline shift, mass or mass effect. The ventricles, cisterns and sulci are globally and proportionally prominent consistentwith atrophy. There is normal differentiation of the lan-white matter. Thereis no intracranial hemorrhage. There is decreased attenuation in the periventricular white matter, nonspecific, but likely related to smallvessel ischemic change. EXTRA-AXIAL SPACES: No fluid collections. No masses. CALVARIUM: No fracture. SINUSES/MASTOIDS: No fluid or mucosal thickening. ORBITS: No significant abnormality. OTHER: No other significant abnormality. IMPRESSION: No acute intracranial abnormality. Global atrophy and white matter changes consistent with small-vesselischemic disease. THIS IS AN ELECTRONICALLY VERIFIED FINAL REPORT 07/22/2024 6:39 AM - Electronically signed by Mirta Bell M.D. SN: Report ID: [id number] Reading Location: [id number] Yoanna Ugarte MD IMG CT PROCEDURES Final Result * eGFR (07/22/2024 12:43 AM SOIL SCIENCE TECHNICAL OFFICER) eGFR >90 >=60 mL/min/1. 73 m2 Comment: Interpretive Data Reference Interval Normal ?>/= 90 mL/min/1.73m2 Mildly decreased* ? 60 - 89 mL/min/1.73m2 Mildly to moderately decreased ?45 - 59 mL/min/1.73m2 Moderately to severely decreased ??30 - 44 mL/min/1.73m2 Severely decreased ?15 - 29 mL/min/1.73m2 Kidney Failure ?< 15 ??mL/min/1.73m2 *Relative to young adult level Estimated glomerular filtration rate is determined by the 2020 CKD-EPI equation recommended by the National Kidney Foundation (A Unifying Approach to GFR Estimation: Recommendations of the NKF-ASK Task Force on Reassessing the Inclusion of Race in Diagnosing Kidney Disease, JASN 2020). The CKD-EPI equation should not be used for patients with unstable renal function and has not been validated in children and those over 70. Current interpretive data was last reviewed 2021. Blood 07/22/2024 12:4 3 AM SOIL SCIENCE TECHNICAL OFFICER 07/22/2024 12:46 AM SOIL SCIENCE TECHNICAL OFFICER us Saadia BALLESTEROS LAB BLOOD ORDERABLES Final Resu lt [facility] ([place]) 1 [facility] [place] [address] * Differential, auto (07/22/2024 12:43 AM SOIL SCIENCE TECHNICAL OFFICER) Neutrophil abs 5.6 1.5 - 6.5 K/cumm Imm gran abs 0.0 0.0 - 0.1 K/cumm [facility] ([facility]) Lymphocyte abs 1.3 0.8 - 3.3 K/cumm [facility] ([facility]) Monocyte abs 0.8 0.2 - 0.8 K/cumm [facility] ([facility]) Eosinophil abs 0.1 0.0 - 0.5 K/cumm [facility] ([facility]) Basophil abs 0.0 0.0 - 0.1 K/cumm [facility] ([facility]) Neutrophil pct 71.8 % [facility] ([facility]) Comment: Interpretive Data Percent cell count reference ranges are not reported, since discordance with absolute values may lead to misinterpretation of CBC data. Current Interpretive Data was last revised on 2017. Imm gran pct 0.3 % [facility] ([facility]) Comment: Interpretive Data Percent cell count reference ranges are not reported, since discordance with absolute values may lead to misinterpretation of CBC data. Current Interpretive Data was last revised on 2017. Lymphocyte pct 16.2 % [facility] ([facility]) Comment: Interpretive Data Percent cell count reference ranges are not reported, since discordance with absolute values may lead to misinterpretation of CBC data. Current Interpretive Data was last revised on 2017. Monocyte pct 10.4 % [facility] ([facility]) Comment: Interpretive Data Percent cell count reference ranges are not reported, since discordance with absolute values may lead to misinterpretation of CBC data. Current Interpretive Data was last revised on 2017. Eosinophil pct 1.0 % [facility] ([facility]) Comment: Interpretive Data Percent cell count reference ranges are not reported, since discordance with absolute values may lead to misinterpretation of CBC data. Current Interpretive Data was last revised on 2017. Basophil pct 0.3 % [facility] ([facility]) Comment: Interpretive Data Percent cell count reference ranges are not reported, since discordance with absolute values may lead to misinterpretation of CBC data. Current Interpretive Data was last revised on 2017. Blood 07/22/2024 12:4 3 AM SOIL SCIENCE TECHNICAL OFFICER 07/22/2024 12:46 AM SOIL SCIENCE TECHNICAL OFFICER us Saadia BALLESTEROS LAB BLOOD ORDERABLES Final Resu lt [facility] ([place]) 1 [facility] [place] [address] * CBC with auto differential (07/22/2024 12:43 AM SOIL SCIENCE TECHNICAL OFFICER) WBC 7.8 3.8 - 9.9 K/cumm Hgb 14.5 13.0 - 17.5 g/dL [facility] ([facility]) Hct 40.8 38.9 - 50.3 % [facility] ([facility]) Plt 181 150 - 400 K/cumm [facility] ([facility]) MPV 9.3 9.1 - 12.3 fL [facility] ([facility]) RBC 4.44 4.30 - 5.80 M/cumm [facility] ([facility]) MCV 91.9 81.3 - 96.4 fL [facility] ([facility]) MCH 32.7 27.1 - 33.3 pg [facility] ([facility]) MCHC 35.5 32.3 - 35.7 g/dL [facility] ([facility]) RDW CV 12.1 11.1 - 14.9 % [facility] ([facility]) RDW SD 40.6 35.7 - 48.1 fL [facility] ([facility]) NRBC abs 0.00 0.00 - 0.01 K/cumm [facility] ([facility]) Blood 07/22/2024 12:4 3 AM SOIL SCIENCE TECHNICAL OFFICER 07/22/2024 12:46 AM SOIL SCIENCE TECHNICAL OFFICER us Saadia BALLESTEROS LAB BLOOD ORDERABLES Final [facility] 1 [facility] [place] [address] * (ABNORMAL) Comprehensive metabolic panel (07/22/2024 12:43 AM SOIL SCIENCE TECHNICAL OFFICER) Pathologist [facility] Sodium 134(L) 135 - 145 mmol/L Potassium, pl 4.1 3.3 - 4.9 mmol/L [facility] ([facility]) Chloride 100 97 - 110 mmol/L [facility] ([facility]) CO2 21(L) 22 - 32 mmol/L [facility] ([facility]) Anion gap 13 2 - 15 mmol/L [facility] ([facility]) BUN 13 6 - 25 mg/dL [facility] ([facility]) Creatinine 0.79(L) 0.80 - 1.30 mg/dL [facility] ([facility]) Comment:Icteric sample, test results may be affected. Glucose 116 70 - 199 mg/dL [facility] ([facility]) Comment: Interpretive Data Fasting glucose >/= 126 mg/dl is diagnostic for diabetes. ?? Fasting is defined as no caloric intake for at least 8 hours. Fasting glucose between 100 mg/dl to 125 mg/dl is diagnostic of prediabetes. In a patient with classic symptoms of hyperglycemia or hyperglycemic crisis, a random glucose >/= 200 mg/dl is diagnostic for diabetes. In the absence of unequivocal hyperglycemia, results should be confirmed by repeat testing. The classification and Diagnosis of Diabetes Diabetes Care 202; 46: S19-S40. Current interpretive data was last revised 2022. Calcium 9.6 8.5 - 10.3 mg/dL [facility] ([facility]) Bilirubin, total 1.1 0.1 - 1.2 mg/dL [facility] ([facility]) Protein, pl 7.4 6.5 - 8.5 g/dL [facility] ([facility]) Albumin 4.5 3.5 - 5.0 g/dL [facility] ([facility]) Alk phos 53 40 - 130 Units/L [facility] ([facility]) ALT 18 7 - 55 Units/L [facility] ([facility]) AST 41 10 - 50 Units/L [facility] ([facility]) Blood 07/22/2024 12:4 3 AM SOIL SCIENCE TECHNICAL OFFICER 07/22/2024 12:46 AM SOIL SCIENCE TECHNICAL OFFICER us Saadia BALLESTEROS LAB BLOOD ORDERABLES Final Resu lt [facility] ([place]) 1 [facility] [place] [address] * CT Abdomen Pelvis W Contrast (12/07/2022 [...] seen within the prostate. ??Otherwise, unremarkable. VASCULATURE: [id number] aortoiliac atherosclerosis. ?? No abdominal aortic aneurysm. [...] PM T: ??12/07/2022 11:42 PM Report ID: [id number] Reading Location: ??[id number] Procedure Note Ganesh Hall, DO - 12/07/2022 EXAM DESCRIPTION: CT ABDOMEN [...] seen within the prostate. Otherwise, unremarkable. VASCULATURE: [id number] aortoiliac atherosclerosis. No abdominal aortic aneurysm. MUSCULOSKELETAL: No acute abnormality. Mild to moderate degenerative changes of the spine and bilateral hip joints. OTHER: No other abnormality. IMPRESSION: 1. No acute intra-abdominal/pelvic abnormality. 2. Additional findings as detailed. THIS IS AN ELECTRONICALLY VERIFIED FINAL REPORT 12/07/2022 11:42 PM - Electronically signed by Ganesh Hall M.D. MF: [id number] Report ID: [id number] Reading Location: [id number] Ganesh Prince MD IMG CT PROCEDURES Final Resu lt * PSA SCREENING (03/14/2016) PSA Normal Result [facility] Historical Provider HEALTH MAINTENANCE Final Result * COLONOSCOPY (01/03/2012) Colonoscopy Abnormal Comment:Diverticulosis Anatomical Region Laterality Modality Other Historical Provider HEALTH MAINTENANCE Final Result from Last 3 Months or Most Recently Relevant to Health Maintenance Insurance [employer] CHO[employer] MEDICARE PPO MEDICARE PHYSICIANS [facility] INS [facility] [employer] CHOICE MEDICARE PPO MEDICARE Care Teams Entertainment & Media Correspondent Relationship Specialty Start Date End Date Ganesh Prince MD PCP - General 11/28/17
--- OUTSIDE RECORDS SUMMARY | 2024-08-13 04:56 | XMS_ITS | Encounter Summary ---
Author Organization 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) Social History Tobacco Use Types Packs/Day Years Used Date Smoking Tobacco: Former Alcohol Use Standard Drinks/Week Comments Yes 0 (1 standard drink = 0.6 oz pur e alcohol) Sex and Gender Information Value Date Recorded Sex Assigned at Not on file Legal Sex Male 8:13 AM PEDIATRIC PHYSIATRIST Gender Identity Not on file Sexual Orientation Not on file documented as of this encounter Last Filed Vital Signs Vital Sign Reading Time Taken Comments Blood Pressure 118/77 10/17/2023 1:18 PM PEDIATRIC PHYSIATRIST Pulse 80 10/17/2023 1:18 PM PEDIATRIC PHYSIATRIST Temperature 37.4 ??C (99.3 ??F) 10/17/2023 1:18 PM CS T Respiratory Rate - - Oxygen Saturation - - Inhaled Oxygen Concentration - - Weight 77.7 kg (171 lb 3.2 oz) 10/17/2023 1:18 P M PEDIATRIC PHYSIATRIST Height 167.6 cm (5' 5.98 ) 10/17/2023 1:18 PM CS T Body Mass Index 27.65 10/17/2023 1:18 PM PEDIATRIC PHYSIATRIST documented in this encounter Patient Instructions * Patient Instructions* Anika Rendon PA - 10/17/2023 1:00 PM PEDIATRIC PHYSIATRIST [facility] TODAY'S VISIT Provider: LESLI Lino Thank you for coming to the [facility] today. We appreciate this opportunity to participate in your care. We have reviewed the concerns about your memory and thinking. Diagnosis We think that the changes you [...] picture of how your memory haschanged. Medications: -Let's trial discontinuing memantine completely- as of right now he is only taking it once a day inthe morning. -Increase quetiapine/Seroquel 25mg twice a day. Additional Recommendations: Someone will call to schedule a talk with the high school social studies tutor. RESOURCES FOR ADDITIONAL INFORMATION AND SUPPORT Opportunities to participate in research can be found at: trialmatch.alz.org Access TrialMatch online. For additional assistance, email or call [phone] (press 1 for clinical trials). ClinicalTrials.gov is a resource provided by the U.S. National Library of Medicine. You can look upclinical trials (research opportunities) online At clinicaltrials.gov Alzheimer's Association of [place] Chapter: ; (toll free); http://www.alz.org, The Alzheimer's Association 05/03 Helpline provides reliable information and support to all those who need assistance. Call toll-free anytime day or night at . The best way to reach our team is via My Chart, this is a secure way for us to communicate about your health care. Please call The My Chart Support Desk: [phone] or [phone] to obtain a link. If you prefer to communicate by phone, please call our nurse at [phone], option 4, leave a message, this voicemail is checked several times per day. Vero Moraes is available to help with resources in the community, caregiver and patient support. Please feel free to contact her: Silvia Moraes R.N. Seismographer Alzheimer's Association, [address] [place] [address] Toll Free: [phone] ext [phone] Email: No future appointments. We will see you again in 6 months. ATRIC PHYSIATRIST ATRIC PHYSIATRIST documented in this encounter Progress Notes * Anika Rendon PA - 10/17/2023 1:00 PM CST Images from the original note were not included. [facility] ESTABLISHED PATIENT FOLLOW-UP VISIT Mehrdad Padilla PA-C (Physician Image Processing Engineer) [facility] Department of Neurology Patient Name: GANESH MACIEL Medical Record Number (MRN): [id number] Date of (): 1960 Encounter Date: 10/17/2023 Primary Care Practitioner: Ganesh Dejesus MD CHIEF COMPLAINT Mr. 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 Maciel is a 63 y.o. right handed gentleman who returns to the [facility] accompanied by his who serves as the Collateral Source (CS). Mr. Maciel lives with his spouse, in their private home. Cognitive History/Review of past visits: -(hx c/p from [facility] 01/16/23 note) Followed by Dr. Moore and [facility] with diagnosis of early onset Alzheimer Disease, onset 2013. Seen by Dr. Moore 12/27/2020 with further progression in memory and thinking difficulties. He is tolerating Donepezil/Aricept and escitalopram/Lexapro. Judgement and problem solving skills only fair. No longer able to manage simple chores. Interested in clinical trials. MMSE: 18, CDR: 2, SB: 10 Seen by myself 12/27/2021 His cognitive testing has declined. His has noticed further decline in activites of daily living as well. He is currently tolerating Donepezil/Aricept. He is moderately impaired. We will start memantine titration to 10 mg twice a day. EEGordered showed right hemisphere slowing and mild generalized slowing. MMSE: 16, CDR: 1, SB: 8 Seen by myself 07/03/2022 His cognitive testing has declined as well as his activites of daily living. Heis tolerating Donepezil/Aricept and Memantine/Namenda. He can be more irritable. He did move 6 weeks ago and had difficulty coming up with the address or town he lived in. His would benefit frommore resources and support. I will send a referral to [facility] and Medical SocialWork. MMSE: 14, CDR: 2, SB: 10 -Most recent ROV with WOOD MILLING MACHINE TENDER Karina Joseph on 01/16/23- He is tolerating Donepezil/Aricept and Memantine/Namenda. He is more and more anxious. He is currently on escitalopram/Lexapro 20 mg. He will pace int he morning and afternoon. I would recommend we trial buspirone 5 mg twice daily. If titrating up the buspirone is not effective we may need to consider a trial of Quetiapine/Seroquel. I would also recommend a day program for socialization and stimulation throughout the day. His will speak with Medical Social Work today for future resources and support. Prescribed busar 5mg BID. -Spouse called [facility] office 07/04/23- behavioral issues, agitation and motor disturbance. Melissa gave order for 12.5 mg seroquel qhs, with recommendations to add AM dose of 12.5mg if needed. On 07/31/23 spouse called and said seroquel not working. Melissa recommended increasing to 12.5mg BID and if not sufficient increase to 25mg BID. Today's visit: Since our last assessment, Mr. Maciel's memory has continued to gradually decline. Currently he has difficulty managing medications. He requires assistance managing appointments. He is not reliable in recalling details of recent events. He will repeat questions, stories and statements. Not necessarily that he's forgetting but on a loop. He usually does not know the day of the week, month and year. He has difficulty with time relationships. He gets confused in their home, they've lived there for a year and a half. He follows CS around constantly. He does not wander. Judgment and problem solving abilities are non existent He is usually appropriate in social situations. He has given up several community activities. He walks up to strangers as if he knows them frequently. He does great with his friends and enjoys reminiscing with them, they plan to go to a concert this weekend. He is no longer driving, due to issues with memory and thinking. At home, he is no longer able to manage simple chores (e.g., can only do one command ). He is no longer able to cook. He is no longer able to manage routine home maintenance. He is no longer able to operate household appliances including the manager test, laundry machines, and block and case maker. He has difficulty using technology, including the television remote, cell phone, and computer. He needs prompting to bathe or groom and needs assistance to bathe and groom. He becomes agitated more frequently (raises voice, becomes anxious, wants to leave etc.), typically around 3-4pm. He will insist that they go to visit his mom and dad or go to their previous home. He continues to go to work with her, she is retiring in 2 weeks. Melissa had previously instructed CS to give seroquel 25mg BID but states she is only giving in the am. He is tolerating the buspar BID, she has only been giving memantine 5mg in the morning. He sleeps okay but gets up frequently to use the restroom, he has urinary frequency and is seeing a urologist later this month.He has a corn on his foot and he is constantly complaining about the discomfort. They are looking into having it removed surgically. The plan is to keep him in the home. CS is nervous as the change in schedule with her group home may confuse P. They have a very supportive family who is willing to help. CS is interested in adult day care. They live in [place], [place]. ADDITIONAL SAFETY/CAREGIVING CONCERNS: Is He currently driving? No Who supervises medications? Spouse or other caregiver supervises. Are there firearms in the home? No Have there been any recent (in the past 6 months) falls? No There have been no hospitalizations and/or major changes in their physical health since their most recent [facility] visit. He requires the assistance of a caregiver, and is primarily cared for by his . Currently she takes him to work with her at her family's business, she is retiring in 2 weeks. His caregiver is willing to continue to serve as caregiver but does not have sufficient support. She is hoping to receive resources about an adult day program in their area. Depression was assessed by administering the Geriatric Depression Scale; this was reviewed in psychometric package. Also, the CS reports that mood is poor. On direct questioning, Mr. Maciel states that memory is ok. He states that mood is good. Behavioral changes were assessed by administering the NPI-Q (Neuropsychiatric Inventory Questionnaire) to the CS: Delusions: present Hallucinations: present- when coming out of sleep he will grab or talk to people Agitation or Aggresion: present Depressed Mood: present Anxiety: present Elation or Euphoria: absent Apathy or Indifference: absent Disinhibition: present Irritability or lability: absent Motor: present Nighttime behaviors/Sleep disturbance: present Appetite or eating issues/weight loss or gain: present, 10 lbs in 6 months. Poor appetite. No longer snacking as much. When he does snacks it's. 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) JEANETTE (generalized anxiety disorder) Anxiety and depression 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 disturbance (HCC) Hearing loss of left ear Bilateral impacted cerumen PAST MEDICAL HISTORY Past Medical History: Diagnosis Date Alzheimer's disease (HCC) Anxiety Gout gout HX OTHER MEDICAL 1985 +ppd inh HX OTHER MEDICAL 1985 aseptic meningitis HX OTHER MEDICAL diastasis recti HX OTHER MEDICAL panic HX OTHER MEDICAL ER visit for laceration February 2009 HX OTHER MEDICAL ER visit for left wrist sprain-October 2009 HX OTHER MEDICAL rotator cuff Hyperlipidemia Hyperlipidemia Psoriasis psoriasis Vertigo Past Surgical History: Procedure Laterality Date SHOULDER SURGERY L shoulder surgery ALLERGIES No Known Allergies MEDICATIONS Current Outpatient Medications: busPIRone (BUSPAR) 5 mg tablet, TAKE 1 TABLET BY MOUTH TWICE A DAY, Disp: 180 tablet, Rfl: 3 donepeziL (ARICEPT) 10 mg tablet, Take 1 tablet (10 mg total) by mouth daily after breakfast, Disp:90 tablet, Rfl: 3 escitalopram (LEXAPRO) 20 mg tablet, TAKE 1 TABLET (20 MG TOTAL) BY MOUTH DAILY, Disp: 90 tablet, Rfl: 3 memantine (NAMENDA) 10 mg tablet, TAKE 1 TABLET EVERY DAY, Disp: 90 tablet, Rfl: 3 QUEtiapine (SEROquel) 25 mg tablet, Take 1 tablet (25 mg total) by mouth 2 (two) times a day, Disp:60 tablet, Rfl: 3 FAMILY & SOCIAL HISTORY Family History Problem Relation Age of Onset Diabetes Mother Diabetes mellitus; Heart disease Mother Heart disease; Heart disease Father Heart disease; Dementia Father Dementia; Alzheimer's disease Father Cystic fibrosis Other Family history of Cystic fibrosis; sibligns: 2 ages 1 1/2, 3 and 21 Cardiomyopathy Son Cardiomyopathy; Cause of : Cardiomyopathy Diabetes Other Family history of Diabetes mellitus; Heart disease Other Family history of Heart disease; Other Brother Heart disease CABG age 37; Gout Other Family history of Gout; Alzheimer's disease Mother's Sister Social History Tobacco Use Smoking status: Former Smokeless tobacco: Not on file Substance and Sexual Activity Drug use: Not on file Sexual activity: Not on file Alcohol Use: Not on file REVIEW OF SYSTEMS Pertinent positives and negatives were recorded in HPI. All other systems negative. PHYSICAL EXAMINATION BP 118/77 (BP Location: Left arm, Patient Position: Sitting) Pulse 80 Temp 37.4 ??C (99.3 ??F) (Temporal) Ht 167.6 cm (5' 5.98 ) Wt 77.7 kg (171 lb 3.2 oz) BMI 27.65 kg/m?? The patient appeared of average build and of stated age. He was dressed appropriately. He was unable to follow multi-step commands. (+) motor apraxia. No sensory intrusions / misperceptions were noted (i.e., no delusions and/or hallucinations). Neurological exam: Visual morin were full with no extinction on double simultaneous stimulation. Pupils were equal, round and reactive to light without relative afferent pupillary defect. Extraocular movements were full with normal smooth pursuit and saccadic eye movements. Facial sensation was intact in all three divisions of the trigeminal nerve. Facial movement was symmetric. Hearing was intact. Palate elevation was symmetric. Shoulder shrug and head turning were symmetric. Tongue protrusion was midline. Motor exam revealed normal bulk, tone and strength throughout. Fine finger movements were symmetric. There was no pronator drift. Qpuwpv-bloa-gzcczd testing were normal. No tremor or bradykinesia was detected. Reflexes were symmetric at the biceps, triceps, brachioradialis and knees. Ankle jerks were absent. Sensation was intact to light-touch; no extinction was noted with double-simultaneous stimulation. Gait was normal . Romberg was absent. The patient was fluent throughout the interview and examination, complying with three-steps of a four-step command. Confrontational naming was intact to high- frequency words. Repetition was preserved.. The details of a recent event were recalled poorly. He recalled 0/5 items on the Blair Brown memory phrase and 3/3 items on delayed recall testing on the MMSE. The patient incorrectly calculated thenumber of quarters in $6.75. The patient incorrectly performed serial subtractions (3's). He was unable to draw a clock, and indicate the correct time. He was unable to copy intersecting pentagons. He demonstrated poor insight concerning the purpose for today's visit. RECENT EVENT PER CS: Jessica Jesus Manuel tribute band at the. RECENT EVENT PER P: ain't got nothing going on COGNITIVE TESTING REPORT Please see neurobehavioral exam results (below) and summary sheet in the chart for test scores. On formal neurobehavioral testing, which took from 13:15 h to 13:37 h, scores were in the moderately impaired range on tests of semantic memory (Basehor Naming, verbal fluency). Scores were in the moderately impaired range on tests of episodic memory (word list memory task, word list recall, logicalmemory). Scores were in the moderately impaired on tests of speeded psychomotor performance (trailmaking A and B, digit symbol). On more global tests, MMSE was 12/30 and Short Blessed was 28 with errors primarily in episodic memory. These findings are consistent with tkxagcas-jh-yuhjkg impairment, and could be seen in, but are notspecific for symptomatic Alzheimer disease. [facility] Neurobehavioral Status Test Results 09/05/2018 7:00 AM 07/21/2019 7:00 AM 12/27/2020 3:59 AM 12/27/2021 2:39 AM 07/03/2022 7:00 AM 01/16/2023 7:00 AM 10/17/2023 7:00 AM [facility] Neurobehavioral Status Exam Results Repository ICF signed? Yes No No Yes No No Verbal Fluency Total Score 14 14 12 2 Basehor Naming (15 item) Total Score 14 15 15 14 14 14 MMSE Score 22 26 18 16 14 17 12 Word List Memory Task 16 14 8 Word List Recall 0 0 0 Short Blessed Total Score 9 21 24 24 24 28 Logical Memory Total Score 4 2 5 2 0 0 Trails A - Seconds to complete 36 36 53 180 180 Trails A - Errors 0 0 2 4 Trails B - Seconds to complete 0 Trails B - Errors 0 Total Score (out of 90) 24 Digit Symbol Errors 0 Clinical Dementia Rating 07/21/2019 7:00 AM 12/27/2020 3:59 AM 12/27/2021 2:39 AM 12/27/2021 7:00 AM 07/03/2022 7:00 AM 01/16/2023 7:00 AM 10/21/2023 7:00 PM [facility] CDR/DIAGNOSIS NEW Repository ICF signed? No No Yes No No Memory 2 2 1 2 1 2 Orientation 1 2 1 2 2 2 Judgement & Problem Solving 2 1 2 2 2 3 Community Affairs 1 2 1 1 1 2 Home & Hobbies 2 2 2 2 2 2 Personal Care 1 1 1 1 1 2 Global Score 1 2 1 2 2 2 Sum of Boxes 9 10 8 10 9 13 Year of Onset 2013 2013 2013 Alert for Potential Transmissible Disorders No No No AD Dementia Alzheimer Disease Dementia Alzheimer Disease Dementia Alzheimer Disease Dementia Mood disorder (any type) Active Alcoholism Remote ADDITIONAL SUMMARY OF RELEVANT MEDICAL RECORDS/ TESTING Lab Results Component Value Date VITB12 389 02/21/2017 Lab Results Component Value Date TSH 2.38 01/28/2017 T9SOFFC 5.1 05/19/2013 Lab Results Component Value Date WBC 6.89 01/27/2017 HGB 12.7 (L) 01/27/2017 HCT 34.2 (L) 01/27/2017 MCV 88.8 01/27/2017 LABPLAT 158 01/27/2017 Lab Results Component Value Date GLUCOSE 86 02/26/2017 CALCIUM 10.0 02/26/2017 SODIUM 139 02/26/2017 POTASSIUM 4.4 02/26/2017 CO2 28 02/26/2017 CHLORIDE 103 02/26/2017 BUNSER 13 02/26/2017 CREATININE 0.90 12/07/2022 Lab Results Component Value Date ALT 17 02/21/2017 AST 20 02/21/2017 ALKPHOS 58 02/21/2017 BILITOT 0.6 02/21/2017 DIAGNOSIS AND ASSESSMENT Mr. Maciel is a 63 y.o. gentleman with a strong family history of early onset dementia, who presents with a 10 year history of slowly progressive cognitive decline. The pattern of decline, findings on neurological examination, psychometric test results and my neurobehavioral examination confirm moderate dementia. The most likely etiologic cause is Alzheimer disease. At the time of this visit, itis my opinion that he is not able to make independent medical decisions. There has been some confusion about patient's medications and dosing frequency. He is on 5 psychotropic medications and continues to have little improvement in behavioral episodes. I recommend we start de-prescribing some of these medications and attempt to identify and optimize those that may be effective. Today he is ratedCDR 2, SOB 13. PLAN 1. 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 Diagnostic evaluation: A. Laboratory studies are reviewed and are complete. No further testing is indicated at this time. B. Neuroimaging studies are reviewed and are complete. No further testing is indicated at this time. 2. Treatment: A. Increase quetiapine/Seroquel 25mg to BID dosing for agitation management B. Continue on donepezil 10mg daily, buspirone 5mg BID and escitalopram 20mg daily. C. Discontinue memantine (CS has only been giving 5mg qam since initiation), instructed to restart if any negative changes in behavior or thinking 3. Activity: I recommended that Mr. Maciel remain physically active and socially engaged. Mr. Maciel and the CS were referred to the Alzheimer???s Association for additional educational resources. A. Will refer for social work consult to discuss adult day program resources near [place], [place]. 4. Safety: The CS was made aware of the expectation that cognitive impairment is ultimately expected to progress and that these will eventually (possibly within the coming year) require him to have increased supervision. Mr. Maciel does not drive. I support this decision. 5. Follow-up: We will see him again in 6 months --- I spent 15 minutes interpreting the results of standardized neuropsychological testing, integratingthese results into clinical decision making and treatment plan, providing interactive feedback to the patient and family member(s)/caregiver(s) and report, and documenting this in the patient's chart. In addition to the interpretation time listed above (and exclusive of that time), I spent 80 minutes on the day of the encounter on activities related to the visit including preparing to see the patient by reviewing labs, tests and medical records, time spent [id number] with the patient and family during the visit, performing counselling and education, placing orders and documenting the visit in the patient's EHR. Mehrdad Padilla PA-C Physician Image Processing Engineer [facility]-Department of Neurology [facility] Detailed plan and patient/caregiver education and referrals are in AVS copied below: Patient Instructions [facility] TODAY'S VISIT Provider: LESLI Lino Thank you for coming to the [facility] today. We appreciate this opportunity to participate in your care. We have reviewed the concerns about your memory and thinking. Diagnosis We think that the changes you [...] picture of how your memory haschanged. Medications: -Let's trial discontinuing memantine completely- as of right now he is only taking it once a day inthe morning. -Increase quetiapine/Seroquel 25mg twice a day. Additional Recommendations: Someone will call to schedule a talk with the high school social studies tutor. RESOURCES FOR ADDITIONAL INFORMATION AND SUPPORT Opportunities to participate in research can be found at: trialmatch.alz.org Access TrialMatch online. For additional assistance, email or call [phone] (press 1 for clinical trials). ClinicalTrials.gov is a resource provided by the U.S. National Library of Medicine. You can look upclinical trials (research opportunities) online At clinicaltrials.gov Alzheimer's Association [facility] Chapter: ; (toll free); http://www.alz.org, The Alzheimer's Association 05/03 Helpline provides reliable information and support to all those who need assistance. Call toll-free anytime day or night at . The best way to reach our team is via My Chart, this is a secure way for us to communicate about your health care. Please call The My Chart Support Desk: [phone] or [phone] to obtain a link. If you prefer to communicate by phone, please call our nurse at [phone], option 4, leave a message, this voicemail is checked several times per day. Vero Moraes is available to help with resources in the community, caregiver and patient support. Please feel free to contact her: Silvia Moraes R.N. Seismographer Alzheimer's [employer], [address] [place], [place] [id number] Toll Free: [phone] ext [phone] Email: No future appointments. We will see you again in 6 months. 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
--- OUTSIDE RECORDS SUMMARY | 2024-08-13 04:56 | XMS_ITS | Encounter Summary ---
Author Organization [facility] Healthcare Address [address] [place] [address] Care Team Providers Care Accelerator Systems Director Name Role Phone Tommie Lu MD Primary Care Provider + Encounter Details Date Type Department Care Team (Late st Contact Info) Description 03/22/2017 3:50 PM CDT - 03/22/2017 11:59 PM CDT Hospital Encounter [facility] OP INTERIM [phone] Worthington, Anna Larkin NP [address] [facility] [address] [place] [address] Discharge Disposition: Discharge to home or self care Social History Tobacco Use Types Packs/Day Years Used Date Smoking Tobacco: Former Alcohol Use Standard Drinks/Week Comments Yes 0 (1 standard drink = 0.6 oz pur e alcohol) Sex and Gender Information Value Date Recorded Sex Assigned at Not on file 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 90 tablet 3 03/05/2017 03/05/2018 folic acid (FOLVITE) 1 mg tablet Take 1,000 mcg by mouth daily. 0 01/29/2017 03/25/2020 SPECTRAVITE SENIOR tablet Take 1 tablet by mouth daily. 0 01/29/2017 03/25/2020 documented as of this encounter Discharge Disposition Disposition Code Departure Means Destination Discharge to home or self care documented in this encounter Plan of Treatment Not on file documented as of this encounter Procedures Procedure Name Priority Date/Time Associated Diagnosis Comments 3-D RENDERING ON MODALITY Routine 03/22/2017 10:05 PM CDT MRI BRAIN W WO CONTRAST Routine 03/22/2017 10:05 PM CDT documented in this encounter Results * 3-D Rendering On Modality (03/22/2017 10:05 PM CDT) Anatomical Region Laterality Modality N/A Magnetic Resonan ce 03/22/2017 10:0 5 PM CDT Narrative 03/22/2017 10:05 PM CDT LORENZO HEBERT M.D. LEN PETTIT M.D. FINAL REPORT The radiology attending physician has personally reviewed this study, and has reviewed and/or edited this written report and agrees with it. ACC# ??Date Time ??Exam [id number] Mar 22, 2017 17:05:00 20800 Neuro 3D Rend sep Modality EXAMINATION: ?? Association of Exams IMPRESSION: ? The report for this examination is included in the report for ?? MRI of the brain with and without contrast, for the above- named patient. ??Please refer to that report for the results of this examination. Requested By: ANNA WORTHINGTON ??ANP ? Dictated By: ?? LEN PETTIT M.D. ??on Mar 27 2017 ??2:03P This document has been electronically signed by: LORENZO HEBERT M.D. on Mar 27 2017 ??3:31P [id number] Procedure Note Miscellaneous, Not In File - 03/27/2017 LORENZO HEBERT M.D. LEN PETTIT M.D. FINAL REPORT The radiology attending physician has personally reviewed this study, and has reviewed and/or edited this written report and agrees with it. ACC# Date Time Exam [id number] Mar 22, 2017 17:05:00 [id number] Neuro 3D Rend sep Modality EXAMINATION: Association of Exams IMPRESSION: The report for this examination is included in the report for MRI of the brain with and without contrast, for the above- named patient. Please refer to that report for the results of this examination. Requested By: ANNA WORTHINGTON Dictated By: LEN PETTIT M.D. on Mar 27 2017 2:03P This document has been electronically signed by: LORENZO HEBERT M.D. on Mar 27 2017 3:31P [id number] us Not In File Miscellaneous IMG MRI PROCEDURES Fin al Result * MRI Brain W WO Contrast (03/22/2017 10:05 PM CDT) Anatomical Region Laterality Modality Head and Neck N/A Magnetic Resonan ce 03/22/2017 10:0 5 PM CDT Narrative 03/22/2017 10:05 PM CDT Leticia HENDRIX M.D. FINAL REPORT The radiology attending physician has personally reviewed this study, and has reviewed and/or edited this written report and agrees with it. ACC# ??Date Time ??Exam [id number] Mar 22, 2017 17:05:00 14130 MRI Brain wo and with contrast EXAMINATION: ?? Magnetic resonance imaging (MRI) of the brain and brainstem without and with contrast HISTORY: 56-year-old male with memory difficulties and visual-spatial deficits. TECHNIQUE: Multiplanar multi-weighted MRI of the brain and brainstem was performed without and with intravenous contrast using the general brain protocol. Contrast information: 14 mL Dotarem COMPARISON: CTA head and neck 01/27/2017. FINDINGS: The scalp and calvarium are normal. The superior sagittal sinus demonstrates normal venous flow. The corpus callosum is normal in shape and signal intensity. The posterior fossa is unremarkable. The pituitary and sella are normal. The brainstem and craniocervical junction are unremarkable. Diffusion weighted images reveal no hyperintensities to suggest acute cerebral infarction. The susceptibility weighted sequences reveal no evidence of acute or chronic hemorrhage. The ventricles are normal in size and position without evidence of hydrocephalus. Scattered punctate foci of T2/FLAIR signal normality in the bilateral cerebral hemispheric white matter, which given the patient's age, likely represent sequelae of mild chronic small vessel ischemic disease, though not more than expected for patient age. There are no areas of abnormal contrast enhancement. The paranasal sinuses are normal. The visualized portions of the mastoids are unremarkable. The orbits appear normal. Normal flow voids are demonstrated in the carotid arteries and basilar artery. IMPRESSION: ?? 1. No intracranial hemorrhage, mass effect, or acute infarction. 2. Sequelae of mild chronic small vessel ischemic disease, though not more than expected for patient age. ADDENDUM: ??Issued 03/27/2017 at 14:[address] Hebert and Dr. Pettit. T1-weighted sagittal MPRage images of the brain were postprocessed on a separate 3D workstation to generate segmented brain volumes using FreeSurfer. ??Results were compared to a normative cohort from [facility]. ??Graphs were sent to [employer] [facility]. Left hippocampus volume: 12th percentile, between 1 and 2 standard deviations below the mean. Right hippocampus volume: 2nd percentile, more than 2 standard deviations below the mean. Parietal lobe cortical thickness: 1st percentile, more than 2 standard deviations below the mean. Occipital lobe cortical thickness: 6th percentile, between 1 and 2 standard deviations below the mean. Frontal lobe cortical thickness: 4th percentile, between 1 and 2 standard deviations below the mean. Left frontotemporal cortical thickness: 7th percentile, between 1 and 2 standard deviations below the mean. Right frontotemporal cortical thickness: 6th percentile, between 1 and 2 standard deviations below the mean. Ventricular volume: 96th percentile, more than than 2 standard deviations above the mean. Ratio of ventricular volume to cerebral volume: 74th percentile, within 1 standard deviation above the mean. White matter hyperintensities (Fazekas grade): ?? Mild ?? Lacunes (< 10 mm): ?None Infarcts (>10 mm): ? None SWI # of microbleeds and location: ?0 ?? Generalized cerebral volume loss. Overall, the pattern does not support a diagnosis of Alzheimer disease. Requested By: ANNA WORTHINGTON ??ANP ? Dictated By: ?? STEVAN DUVAL M.D. ??on Mar 23 2017 10:16A This document has been electronically signed by: JAYDEN ROLLINS M.D. on Mar 23 2017 11:09A Addendum Dictated by: LEN PETTIT M.D. on Mar 27 2017 ??2:02P This Addendum has been electronically signed by: LORENZO HEBERT M.D. on Mar 27 2017 ??3:31P [id number] Procedure Note Miscellaneous, Not In File / Provider, MD Sanna - 03/27/2017 LORENZO HEBERT M.D. STEVAN DUVAL M.D. FINAL REPORT The radiology attending physician has personally reviewed this study, and has reviewed and/or edited this written report and agrees with it. ACC# Date Time Exam [id number] Mar 22, 2017 17:05:00 [id number] MRI Brain wo and with contrast EXAMINATION: Magnetic resonance imaging (MRI) of the brain and brainstem without and with contrast HISTORY: 56-year-old male with memory difficulties and visual-spatial deficits. TECHNIQUE: Multiplanar multi-weighted MRI of the brain and brainstem was performed without and with intravenous contrast using the general brain protocol. Contrast information: 14 mL Dotarem COMPARISON: CTA head and neck 01/27/2017. FINDINGS: The scalp and calvarium are normal. The superior sagittal sinus demonstrates normal venous flow. The corpus callosum is normal in shape and signal intensity. The posterior fossa is unremarkable. The pituitary and sella are normal. The brainstem and craniocervical junction are unremarkable. Diffusion weighted images reveal no hyperintensities to suggest acute cerebral infarction. The susceptibility weighted sequences reveal no evidence of acute or chronic hemorrhage. The ventricles are normal in size and position without evidence of hydrocephalus. Scattered punctate foci of T2/FLAIR signal normality in the bilateral cerebral hemispheric white matter, which given the patient's age, likely represent sequelae of mild chronic small vessel ischemic disease, though not more than expected for patient age. There are no areas of abnormal contrast enhancement. The paranasal sinuses are normal. The visualized portions of the mastoids are unremarkable. The orbits appear normal. Normal flow voids are demonstrated in the carotid arteries and basilar artery. IMPRESSION: 1. No intracranial hemorrhage, mass effect, or acute infarction. 2. Sequelae of mild chronic small vessel ischemic disease, though not more than expected for patient age. ADDENDUM: Issued 03/27/2017 at 14:[address] Hebert and Dr. Pettit. T1-weighted sagittal MPRage images of the brain were postprocessed on a separate 3D workstation to generate segmented brain volumes using FreeSurfer. Results were compared to a normative cohort from [facility]. Graphs were sent to [employer] [facility]. Left hippocampus volume: 12th percentile, between 1 and 2 standard deviations below the mean. Right hippocampus volume: 2nd percentile, more than 2 standard deviations below the mean. Parietal lobe cortical thickness: 1st percentile, more than 2 standard deviations below the mean. Occipital lobe cortical thickness: 6th percentile, between 1 and 2 standard deviations below the mean. Frontal lobe cortical thickness: 4th percentile, between 1 and 2 standard deviations below the mean. Left frontotemporal cortical thickness: 7th percentile, between 1 and 2 standard deviations below the mean. Right frontotemporal cortical thickness: 6th percentile, between 1 and 2 standard deviations below the mean. Ventricular volume: 96th percentile, more than than 2 standard deviations above the mean. Ratio of ventricular volume to cerebral volume: 74th percentile, within 1 standard deviation above the mean. White matter hyperintensities (Fazekas grade): Mild Lacunes (< 10 mm): None Infarcts (>10 mm): None SWI # of microbleeds and location: 0 Generalized cerebral volume loss. Overall, the pattern does not support a diagnosis of Alzheimer disease. Requested By: ANNA WORTHINGTON ANP Dictated By: STEVAN DUVAL M.D. on Mar 23 2017 10:16A This document has been electronically signed by: JAYDEN ROLLINS M.D. on Mar 23 2017 11:09A Addendum Dictated by: LEN PETTIT M.D. on Mar 27 2017 2:02P This Addendum has been electronically signed by: LORENZO HEBERT M.D. on Mar 27 2017 3:31P [id number] us Not In File Miscellaneous IMG MRI PROCEDURES Fin al Result documented in this encounter Visit Diagnoses Not on filedocumented in this encounter Care Teams Accelerator Systems Director Relationship Specialty Start Date End Date Tommie Lu MD [address] [place] [address] PCP - General 11/10/16 11/27/17 documented as of this encounter
--- OUTSIDE RECORDS SUMMARY | 2024-08-13 04:56 | XMS_ITS | Encounter Summary ---
Author Organization [facility] Address [address] [place] [address] Phone Care Team Providers Care Armed Security Professional Name Role Phone Ganesh Prince MD Primary Care Provider + [phone] Encounter Details Date Type Department Care Team (Late st Contact Info) Description 08/28/2019 Telephone [facility] [address] [place] [address] [address] Floor [address] [place] [address] Maricruz Brunner RMA Social History Tobacco Use Types Packs/Day Years Used Date Smoking Tobacco: Former Alcohol Use Standard Drinks/Week Comments Yes 0 (1 standard drink = 0.6 oz pur e alcohol) Sex and Gender Information Value Date Recorded Sex Assigned at Not on file 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 ITUTE DIRECTOR * Telephone Encounter - Maricruz Brunner RMA - 08/28/2019 10:20 AM INSTITUTE DIRECTOR ----- Message from Pilar Miner RN sent at 08/22/2019 3:30 PM INSTITUTE DIRECTOR ----- Regarding: EEG Patient has new insurance and would like to go ahead and reschedule the EEG. Can you please schedule this? prefers afternoons. Her name is Murtaza and her number is [phone]. Thank you, Pilar ITUTE DIRECTOR documented in this encounter Plan of Treatment Not on file documented as of this encounter Visit Diagnoses Not on filedocumented in this encounter Care Teams Armed Security Professional Relationship Specialty Start Date End Date Ganesh Prince MD PCP - General 11/28/17 documented as of this encounter
--- OUTSIDE RECORDS SUMMARY | 2024-08-13 04:56 | XMS_ITS | Encounter Summary ---
Author Organization [facility] Address [address] [place] [address] Care Team Providers Care Meal Attendant Name Role Phone Ganesh Prince MD Primary Care Provider + [phone] Encounter Details Date Type Department Care Team (Late st Contact Info) Description 11/18/2019 Telephone [facility] Medical [facility] - [facility], [facility] [address] [place] [address] Guadalupe Em DO [address] [facility] [address] [place] [address] Social History Tobacco Use Types Packs/Day Years Used Date Smoking Tobacco: Former Alcohol Use Standard Drinks/Week Comments Yes 0 (1 standard drink = 0.6 oz pur e alcohol) Sex and Gender Information Value Date Recorded Sex Assigned at Not on file Legal 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 They have tried several over the counter drops and wax softeners but nothing has helped. I explained we are only seeing Emergency patients right now and Dr. Em would determine if this was or not. documented in this encounter Plan of Treatment Not on file documented as of this encounter Visit Diagnoses Not on filedocumented in this encounter Care Teams Meal Attendant Relationship Specialty Start Date End Date Ganesh Prince MD PCP - General 11/28/17 documented as of this encounter
--- OUTSIDE RECORDS SUMMARY | 2024-08-13 04:56 | XMS_ITS | Encounter Summary ---
Author Organization [facility] Address [address] [place] [address] Phone Care Team Providers Care Team Physician Name Role Phone Ganesh Prince MD Primary Care Provider + [phone] Encounter Details Date Type Department Care Team (Late st Contact Info) Description 07/04/[address] [place] [address] Pilar Miner, RN Social History Tobacco Use Types Packs/Day Years Used Date Smoking Tobacco: Former Alcohol Use Standard Drinks/Week Comments Yes 0 (1 standard drink = 0.6 oz pur e alcohol) Sex and Gender Information Value Date Recorded Sex Assigned at Not on file 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 is requesting help now or new medication to assist. Spoke with Karina Joseph who gave verbal order for Seroquel 12.5 mg daily in PM and to add an AM dose of 12.5 mg as well if agitation is not controlled by one tablet. Spoke with spouse regarding medication administration instructions and side effects to watch for. Prescription called into pharmacy. MBLER TRIM documented in this encounter Plan of Treatment Not on file documented as of this encounter Visit Diagnoses Not on filedocumented in this encounter Care Teams Team Physician Relationship Specialty Start Date End Date Ganesh Prince MD PCP - General 11/28/17 documented as of this encounter
--- OUTSIDE RECORDS SUMMARY | 2024-08-13 04:56 | XMS_ITS | Encounter Summary ---
Author Organization [facility] Address [address] [place] [address] Phone Care Team Providers Care Concrete Vault Maker Name Role Phone Ganesh Prince MD Primary Care Provider + [phone] Reason for Visit * Reason Comments Alzheimer's Disease Encounter Details Date Type Department Care Team (Late st Contact Info) Description 04/24/2024 3:15 PM CDT Office Visit [facility] [address] [facility] [place] [address] Dianne Worthington NP [address] [place], [place] [id number] [phone] 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 disturbance (HCC) (Primary Dx); 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) Social History Tobacco Use Types Packs/Day Years Used Date Smoking Tobacco: Former Tobacco Cessation:Counseling Given: Not Answered Alcohol Use Standard Drinks/Week Comments Yes 0 (1 standard drink = 0.6 oz pur e alcohol) Sex and Gender Information Value Date Recorded Sex Assigned at Not on file Legal 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 Gender Identity Not on file Sexual Orientation Not on file documented as of this encounter Last Filed Vital Signs Vital Sign Reading Time Taken Comments Blood Pressure 118/77 04/24/2024 3:05 PM CDT Pulse 85 04/24/2024 3:05 PM CDT Temperature 37.2 ??C (99 ??F) 04/24/2024 3:05 PM CDT Respiratory Rate - - Oxygen Saturation 98% 04/24/2024 3:05 PM CDT Inhaled Oxygen Concentration - - Weight 72.1 kg (159 lb) 04/24/2024 3:05 PM CDT Height 167.6 cm (5' 5.98 ) 04/24/2024 3:05 PM CD T Body Mass Index 25.68 04/24/2024 3:05 PM CDT documented in this encounter Patient Instructions * Patient Instructions* Dianne Worthington NP - 04/24/2024 3:15 PM CDT [facility] After Visit Summary SHY Watson (Nurse Practitioner) Thank you for coming to the [facility]. We appreciate the opportunity to participate in your care. We have reviewed the concerns about your memory and thinking. Diagnosis: We think that the changes you and your family have observed in your memory and thinking are most likely caused by: Alzheimer's dementia Medications: Increase quetiapine/Seroquel to 100 mg three times daily. Additional Recommendations Wt Readings from Last 3 Encounters: 04/24/24 72.1 kg (159 lb) 01/23/24 73.3 kg (161 lb 8 oz) 10/17/23 77.7 kg (171 lb 3.2 oz) Additional Resources and Support: Silvia Moraes R.N. Clinical Physician Assistant [employer] [address] [place] [address] Toll Free: [phone] ext [phone] Email: The best way to reach our team is via My Chart, this is a secure way for us to communicate about your health care. Please call The My Chart Support Desk: [phone] for help with My Chart, or [phone] to obtain a link for access. We offer in person and telemedicine (virtual) visits. Please let us know your preference when scheduling. documented in this encounter Ordered Prescriptions Prescription Sig Dispense Quantity Refills Last Filled Start Date End Date QUEtiapine (SEROquel) 50 mg tablet Take 1 tablet (50 mg total) by mouth 3 (three) times a day For agitation 180 tablet 6 04/24/2024 documented in this encounter Progress Notes * Ander, Dianne Larkin, ADHESIVE PRIMER - 04/24/2024 3:15 PM CDT [facility] OFFICE [facility] Patient Name: GANESH MACIEL Chief Complaint: Memory and thinking difficulty HISTORY OF PRESENT ILLNESS: Mr. Maciel is a 63 y.o. gentleman who comes to the [facility] today for further evaluation of memory and thinking problems. He is in generally good health. Collateral Source (CS): Dementia history: Last visit 01/2024 -History of slowly progressive cognitive changes, consistent with a clinical diagnosis of Alzheimer's dementia. He is agitated, aggressive, the increase of quetiapine to 50 mg TID helped some but problems persist and more conservative measures are not effective. Referred to Clinical Physician Assistant Vero Moraes for resources and support, recommend placement, more help at home, daycare, counseling for CS. F/u with primary care provider to r/o acute problem such as Urinary Tract Infection. Further Neuropsychiatric Testing not clinically meaningful. Today's Visit: He is losing weight, still pacing. Hospice is coming to evaluated him on Sunday. He will pace five hours at a time. He looks at things like he sees them for the first time. He is moving furniture around. Two days per week [facility] is coming in. He is taking quetiapine/Seroquel 75 mg TID and lorazepam 0.5 mg TID. Caregiver support: met with Clinical Physician Assistant Vero Moraes for resources and support Review of Systems Constitutional: Negative. HENT: Negative. Eyes: Negative. Respiratory: Negative. Cardiovascular: Negative. Gastrointestinal: Negative. Genitourinary: Negative. Musculoskeletal: Negative. Skin: Negative. Neurological: Negative. Endo/Heme/Allergies: Negative. Psychiatric/Behavioral: Positive for memory loss. The patient is nervous/anxious. 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) ALLERGIES No Known Allergies MEDICATIONS Current Outpatient Medications: donepeziL (ARICEPT) 10 mg tablet, Take 1 tablet (10 mg total) by mouth daily after breakfast, Disp:90 tablet, Rfl: 3 LORazepam (ATIVAN) 0.5 mg tablet, Take 1 tablet (0.5 mg total) by mouth 2 (two) times a day as needed, Disp: , Rfl: memantine (NAMENDA) 10 mg tablet, Take 1 tablet (10 mg total) by mouth daily, Disp: 90 tablet, Rfl:3 escitalopram (LEXAPRO) 20 mg tablet, TAKE 1 TABLET (20 MG TOTAL) BY MOUTH DAILY, Disp: 90 tablet, Rfl: 3 Family History Problem Relation Age of Onset [...] Tobacco Use Smoking status: Former Smokeless tobacco: None Substance and Sexual Activity Drug use: None Sexual activity: None Alcohol Use: Not on file Medical Records Review: I reviewed [facility] notes and prior Neuropsychometric testing scores. Lab Results Component Value Date TSH 2.38 01/28/2017 Lab Results Component Value Date VITB12 389 02/21/2017 PHYSICAL EXAM BP 118/77 (BP Location: Left arm, Patient Position: Sitting) Pulse 85 Temp 37.2 ??C (99 ??F) (Temporal) Ht 167.6 cm (5' 5.98 ) Wt 72.1 kg (159 lb) SpO2 98% BMI 25.68 kg/m?? Wt Readings from Last 6 Encounters: 04/24/24 72.1 kg (159 lb) 01/23/24 73.3 kg (161 lb 8 oz) 10/17/23 77.7 kg (171 lb 3.2 oz) 01/16/23 76.9 kg (169 lb 8 oz) 07/03/22 84.1 kg (185 lb 8 oz) 12/27/21 83.9 kg (185 lb) General Assessment, exam limited as he was up walking with angelica during the visit looking for . There were no orthostatic complaints. Alert, pleasant, walking around the clinic. Cranial Nerves Facial movement was symmetric. Hearing was normal to conversation. Motor Motor exam revealed normal bulk. Tremor was absent, bradykinesia was absent. Gait Gait was normal, decreased arm swing. 07/21/2019 7:00 AM 12/27/2020 3:59 AM 12/27/2021 2:39 AM 07/03/2022 7:00 AM 01/16/2023 7:00 AM 10/17/2023 7:00 AM 01/23/2024 10:31 AM [facility] Neurobehavioral Status Exam Results Repository ICF signed? No No Yes No No Yes Verbal Fluency Total Score 14 12 -- -- -- 2 2 [place] Naming (15 item) Total Score 15 15 14 14 14 11 MMSE Score 26 18 16 14 17 12 10 Word List Memory Task 14 8 -- -- -- Word List Recall 0 0 -- -- Short Blessed Total Score 9 21 24 24 24 28 28 Logical Memory Total Score 2 5 2 0 0 Trails A - Seconds to complete 36 53 180 -- 180 Trails A - Errors 0 -- -- 2 4 Trails B - Seconds to complete 0 -- -- -- Trails B - Errors 0 -- -- Total Score (out of 90) 24 -- -- -- Digit Symbol Errors 0 -- -- Clinical Dementia Ratin12/27/2020 3:59 AM 12/27/2021 2:39 AM 12/27/2021 7:00 AM 07/03/2022 7:00 AM 01/16/2023 7:00 AM 10/21/2023 7:00 PM 01/23/2024 10:31 AM [facility] CDR/DIAGNOSIS NEW Repository ICF signed? No Yes No No Yes Memory 2 1 2 1 2 2 Orientation 2 1 2 2 2 2 Judgement & Problem Solving 1 2 2 2 3 3 Community Affairs 2 1 1 1 2 2 Home & Hobbies 2 2 2 2 2 2 Personal Care 1 1 1 1 2 2 Global Score 2 1 2 2 2 2 Sum of Boxes 10 8 10 9 13 13 Year of Onset 2013 2013 2013 Alert for Potential Transmissible Disorders No No No AD Dementia Alzheimer Disease Dementia Alzheimer Disease Dementia Alzheimer Disease Dementia Mood disorder (any type) Active Active Sleep disorder Remote ASSESSMENT/PLAN: Mr. Maciel is a 63 y.o. gentleman with a history of slowly progressive cognitive changes, consistent with a clinical diagnosis of Alzheimer's dementia. He is agitated, aggressive, the increase of quetiapine to 75 mg TID helped some but problems persist, still pacing several hours per day. He is sleeping at night. is also giving lorazepam 0.5 mg TID. met with Clinical Physician Assistant Vero Moraes for resources and support. 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 Patient Instructions [facility] After Visit Summary SHY Watson (Nurse Practitioner) Thank you for coming to the [facility]. We appreciate the opportunity to participate in your care. We have reviewed the concerns about your memory and thinking. Diagnosis: We think that the changes you and your family have observed in your memory and thinking are most likely caused by: Alzheimer's dementia Medications: Increase quetiapine/Seroquel to 100 mg three times daily. Additional Recommendations Wt Readings from Last 3 Encounters: 04/24/24 72.1 kg (159 lb) 01/23/24 73.3 kg (161 lb 8 oz) 10/17/23 77.7 kg (171 lb 3.2 oz) Additional Resources and Support: Silvia Moraes R.N. Clinical Physician Assistant [employer] [address] [place] [address]. [place] [address] Toll Free: [phone] ext [phone] Email: The best way to reach our team is via My Chart, this is a secure way for us to communicate about your health care. Please call The My Chart Support Desk: [phone] for help with My Chart, or [phone] to obtain a link for access. We offer in person and telemedicine (virtual) visits. Please let us know your preference when scheduling. My total encounter time on 04/24/2024 was 35 minutes which was spent in the activities documented inthe note. This includes time spent prior to the visit and after the visit in direct care of the patient. This time does not include time spent in any separately reportable services. 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) Increase quetiapine/Seroquel to 100 mg TID, continue lorazepam 0.5 mg TID Consider placement Hospice/ palliative evaluation met with Clinical Physician Assistant Vero Moraes for resources and support documented in this encounter Plan of Treatment Not on file documented as of this encounter Visit Diagnoses Diagnosis 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 disturbance (HCC)- Primary 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
--- OUTSIDE RECORDS SUMMARY | 2024-08-13 04:56 | XMS_ITS | Encounter Summary ---
Author Organization [facility] Address [address] [place] [address] Phone Care Team Providers Care Program Coordinator For Residence Life Name Role Phone Ganesh Prince MD Primary Care Provider + [phone] Encounter Details Date Type Department Care Team (Late st Contact Info) Description 01/16/2023 1:00 PM CDT Office Visit [facility] [address] [place] [address] 6th [address] [place] [address] Spring, Karina Lu NP [address] [facility] [id number] [place] [address] 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 disturbance (HCC) (Primary Dx); Anxiety and depression Social History Tobacco Use Types Packs/Day Years Used Date Smoking Tobacco: Former Tobacco Cessation:Counseling Given: Not Answered Alcohol Use Standard Drinks/Week Comments Yes 0 (1 standard drink = 0.6 oz pur e alcohol) Sex and Gender Information Value Date Recorded Sex Assigned at Not on file 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 Gender Identity Not on file Sexual Orientation Not on file documented as of this encounter Last Filed Vital Signs Vital Sign Reading Time Taken Comments Blood Pressure 115/73 01/16/2023 12:44 PM CDT Pulse 82 01/16/2023 12:44 PM CDT Temperature 36.5 ??C (97.7 ??F) 01/16/2023 12:44 PM C DT Respiratory Rate - - Oxygen Saturation 97% 01/16/2023 12:44 PM CDT Inhaled Oxygen Concentration - - Weight 76.9 kg (169 lb 8 oz) 01/16/2023 12:44 PM CDT Height 167.6 cm (5' 6 ) 01/16/2023 12:44 PM CDT Body Mass Index 27.36 01/16/2023 12:44 PM CDT documented in this encounter Patient Instructions * Patient Instructions* Karina Joseph NP - 01/16/2023 1:00 PM CDT [facility] TODAY'S VISIT Provider: AMIEE Last (Nurse Practitioner) Thank you for coming to the [facility] today. We appreciate this opportunity to participate in your care. We have reviewed the concerns about your memory and thinking. Memory and thinking test scores today: MMSE (Mini Mental Status Exam): A perfect score on this test is 30. A score of of between 27-30 is considered normal. A score of 24-26 is considered mildly impaired. A score of 20-23 is impaired. Scores below 20 show moderate impairment and 10 or below shows severe impairment. Diagnosis We think that the changes [...] how your memory haschanged. Medications: We recommend starting buspirone 5 mg twice daily for anxiety. We can increase to three times daily if this dose is not effective in reducing his anxiety. Additional Recommendations: Nutrition: We recommend that you [...] Program, from The Alzheimer's Association, please call [phone], or you can register online [email or web address]. 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 Legal: No legal concerns were discussed today. RESOURCES FOR ADDITIONAL INFORMATION AND SUPPORT Opportunities to participate in research can be found at: trialmatch.alz.org Access TrialMatch online. For additional assistance, email or call [phone] (press 1 for clinical trials). ClinicalTrials.gov is a resource provided by the U.S. National Library of Medicine. You can look upclinical trials (research opportunities) online At clinicaltrials.gov Alzheimer's Association [facility] Chapter: ; (toll free); http://www.alz.org, The Alzheimer's Association 05/03 Helpline provides reliable information and support to all those who need assistance. Call toll-free anytime day or night at . Caregiver Guide: tips for caregivers of people with Alzheimer's dementia, www.smiley.nih.gov/Alzheimers /Publication/Yoylzd-ldowky-nvieougfdb-disease/about-guide [facility], [address] [place]. [address], , Occupational Therapists who offers caregiver training, family support, and in home safety assessments at no cost. Memorycarehs.org [facility] Agency on Aging (serving [facility]) http://[facility]/government/hslaaa.html [facility] on [facility] [email or web address] If you need to reach our office, please call our nurse at [phone], option 4, leave a message, this voicemail is checked several times per day. If you need to contact our social worker masters: Alan Be or Jose Angel Arriola, from the Alzheimer's Association, please call [phone] No future appointments. documented in this encounter Ordered Prescriptions Prescription Sig Dispense Quantity Refills Last Filled Start Date End Date busPIRone (BUSPAR) 5 mg tabletIndications: Generalized Anxiety Disorder Take 1 tablet (5 mg total) by mouth 2 (two) times a day 60 tablet 3 01/16/2023 04/18/2023 documented in this encounter Progress Notes * Karina Joseph NP - 01/16/2023 1:00 PM CDT [facility] OFFICE VISIT Karina MCKEONP-BC (Nurse Practitioner) [facility] Department of Neurology Patient Name: GANESH MACIEL Medical Record Number (MRN): [id number] Date of (): 1960 Encounter Date: 01/16/2023 Referring MD: Dr. Ganesh Prince MD Primary Care Practitioner: Ganesh Dejesus MD CHIEF COMPLAINT Memory and thinking difficulty Collateral Source: Mirian , serves as the collateral source/sources (CS/CS's). The CS typically sees the patient daily. HISTORY OF PRESENT ILLNESS Mr. Maciel is a 62 y.o. gentleman who comes to the [facility] today for further evaluation of memory and thinking problems. He is in generally fair health. Dementia History: Followed by Dr. Moore and [facility] with diagnosis of early onset Alzheimer Disease, [...] titration to 10 mg twice a day. EEG ordered showed right hemisphere slowing and mild generalized slowing. MMSE: 16, CDR: 1, SB: 8 Seen by myself 07/03/2022 His cognitive testing has declined as well as his activites of daily living. He is tolerating Donepezil/Aricept and Memantine/Namenda. He can be more irritable. He did move 6 weeks ago and had difficulty coming up with the address or town he lived in. His would benefit from more resources and support. I will send a referral to [facility] and Medical Social Work. MMSE: 14, CDR: 2, SB: 10 TODAY'S VISIT: There have not been hospitalizations, or major medical illnesses since the last visit. Medications were reviewed, there were were no changes. Overall, the CS thinks memory and thinking problems have gotten worse, over the past 6-12 months. He is more anxious. He wont sit still. He is up pacing throughout the house. He will refuse a walk.No hallucinations, delusions, paranoia. He is getting agitated with his . He always says he is not hungry and doesn't want anything to eat. He will watch TV during the day. He will sit on the back day and watch the birds. He doesn't want to read anything. Language comprehension has declined. Froyay not understand what is going on in a show. He is helpful with trash and laundry. He is will vacuum. If his asks him he will help. He will put water in the bird bath. He couldn't make himselfa sandwich. He will follow his to the car to her side not understanding to get in the car. His is neeraj to get him to take a shower once a week. He will refuse to change his shirt. He woke up in good mood today. They went on a cruise and that really through him for a loop. The 8 hour [place]o [place] was hard. He got locked in the bathroom on the plane. He wanted to go home everyday. He isnever physical. He will give dirty looks, but never physical. His doesn't leave him home alone often. His will have people check on him when he is home alone. He will go for a walk when he is mad and will come right back. He always has his phone with this to track him. He doesn't know call out, but he can answer. His is not worried about him getting scammed. He recognizes those whoare familiar to him. His takes him to work with her. She is hoping to retire next october. His wi fe makes his menu selection. She will give him options but he typically picks chicken. He did have blood in the urine at his last PCP follow up. No pain when he goes to the bathroom. He is not havingany bathroom accidents. He is sleeping. He doesn't sleep during the day like he used to. The memory and thinking problems are consistent and have been slowly progressive. Caregiver State: mild stress at this time. We went over resources and supports for caregivers, discussed availability of our Dental Aide from the Alzheimer's Association ACTIVE PROBLEMS Patient [...] EVERY DAY, Disp: 90 tablet, Rfl: 3 busPIRone (BUSPAR) 5 mg tablet, Take 1 tablet (5 mg total) by mouth 2 (two) times a day, Disp: 60 tablet, Rfl: 3 FAMILY & SOCIAL HISTORY [...] activity: None Alcohol Use: Not on file Review of Systems Constitutional: Negative. HENT: Negative. Eyes: Negative. Respiratory: Negative. Cardiovascular: Negative. Gastrointestinal: Negative. Genitourinary: Negative. Musculoskeletal: Negative. Skin: Negative. Neurological: Negative. Endo/Heme/Allergies: Negative. Psychiatric/Behavioral: Positive for memory loss. The patient is nervous/anxious. Medical Records Review: I reviewed [facility] notes and prior Neuropsychometric testing scores. [facility] Neurobehavioral Status Exam Results 09/05/2018 07/21/2019 12/27/2020 12/27/2021 07/03/2022 Repository ICF signed? Yes No No Yes No Verbal Fluency Total Score 14 14 12 (No Data) (No Data) [place] Naming (15 item) Total Score 14 15 15 14 14 MMSE Score 22 26 18 16 14 Word List Memory Task 16 14 8 (No Data) (No Data) Word List Recall 0 0 0 - (No Data) Short Blessed Total Score - 9 21 24 24 Logical Memory Total Score 4 2 5 2 0 Trails A - Seconds to complete 36 36 53 180 (No Data) Trails A - Errors 0 0 (No Data) (No Data) 2 Trails B - Seconds to complete (No Data) 0 (No Data) (No Data) (No Data) Trails B - Errors - 0 (No Data) - (No Data) Total Score (out of 90) (No Data) 24 (No Data) (No Data) (No Data) Digit Symbol Errors - 0 (No Data) - (No Data) Lab Results Component Value Date TSH 2.38 01/28/2017 [id number] 5.1 05/19/2013 Lab Results Component Value Date [...] Date VITB12 389 02/21/2017 PHYSICAL EXAMINATION BP 115/73 (BP Location: Left arm, Patient Position: Sitting) Pulse 82 Temp 36.5 ??C (97.7 ??F) (Temporal) Ht 167.6 cm (5' 6 ) Wt 76.9 kg (169 lb 8 oz) SpO2 97% BMI 27.36 kg/m?? General Assessment There were no orthostatic [...] There was no pronator drift. Tremor was present to BL upper extremities, bradykinesiawas absent. Sensation Sensation was intact to light touch. Coordination Icjdwg-gzhr-lamwgn testing was normal. Reflexes Reflexes were symmetric at the biceps, brachioradialis and knees. Gait Gait was slow He had mild word finding difficulty throughout the interview and examination. NEUROBEHAVIORAL TESTING REPORT On formal neurobehavioral testing, which took from [id number] , scores were in the normal to mildly impaired range on tests of semantic memory ([place] Naming, verbal fluency). Scores were in the mildly impaired range on tests of episodic memory (logical memory). Scores were in the moderately impaired range on tests of speeded psychomotor performance (trailmaking). On more global tests, MMSE was 17. Episodic recall was 0/5 and 3/3. These findings are consistent with mild to moderately impaired. He was not able to [...] reviewed in the psychometric package- He endorsed 2 items on the GDS, felt tired all the time and had to be moving all the time. Neurobehavioral test results: [facility] Neurobehavioral Status Exam Results 09/05/2018 07/21/2019 12/27/2020 12/27/2021 07/03/2022 Repository ICF signed? Yes No No Yes No Verbal Fluency Total Score 14 14 12 (No Data) (No Data) [place] Naming (15 item) Total Score 14 15 15 14 14 MMSE Score 22 26 18 16 14 Word List Memory Task 16 14 8 (No Data) (No Data) Word List Recall 0 0 0 - (No Data) Short Blessed Total Score - 9 21 24 24 Logical Memory Total Score 4 2 5 2 0 Trails A - Seconds to complete 36 36 53 180 (No Data) Trails A - Errors 0 0 (No Data) (No Data) 2 Trails B - Seconds to complete (No Data) 0 (No Data) (No Data) (No Data) Trails B - Errors - 0 (No Data) - (No Data) Total Score (out of 90) (No Data) 24 (No Data) (No Data) (No Data) Digit Symbol Errors - 0 (No Data) - (No Data) Clinical Dementia Rating: [facility] CDR/DIAGNOSIS NEW 09/05/2018 07/21/2019 12/27/2020 12/27/2021 07/03/2022 01/16/2023 Repository ICF signed? Yes No No Yes No - Memory 1 2 2 1 2 1 Orientation 1 1 2 1 2 2 Judgement & Problem Solving 1 2 1 2 2 2 Community Affairs 0 1 2 1 1 1 Home & Hobbies 1 2 2 2 2 2 Personal Care 1 1 1 1 1 1 Global Score 1 1 2 1 2 2 Sum of Boxes 5 9 10 8 10 9 Year of Onset 2013 2013 2013 - - - Alert for Potential Transmissible Disorders No No No - - - AD Dementia Alzheimer Disease Dementia Alzheimer Disease Dementia Alzheimer Disease Dementia - - - Mood disorder (any type) Active - Active - - - Alcoholism - Remote - - - - ASSESSMENT Mr. Maciel is a 62 y.o. gentleman with a history of slowly progressive cognitive changes, consistent with a clinical diagnosis of Alzheimer's dementia. His cognitive testing and activites of daily living have progressively declined. He is tolerating Donepezil/Aricept and Memantine/Namenda. He is more and more anxious. He is currently on escitalopram/Lexapro 20 mg. He will pace int he morning andafternoon. I would recommend we trial buspirone 5 mg twice daily. If titrating up the buspirone is not effective we may need to consider a trial of Quetiapine/Seroquel. I would also recommend a day program for socialization and stimulation throughout the day. His will speak with Medical SocialWork today for future resources and support. PLAN OF CARE: (Shared with CS, CS's) Referral made to community resources (Adult day programs referral to JIG BUILDER HELPER) 1. 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 disturbance (HCC) 2. Anxiety and depression Orders Placed This Encounter busPIRone (BUSPAR) 5 mg tablet Sig: Take 1 tablet (5 mg total) by mouth 2 (two) times a day Dispense: 60 tablet Refill: 3 Patient Instructions [facility] TODAY'S VISIT Provider: AIMEE Last (Nurse Practitioner) Thank you for coming to the [facility] today. We appreciate this opportunity to participate in your care. We have reviewed the concerns about your memory and thinking. Memory and thinking test scores today: MMSE (Mini Mental Status Exam): A perfect score on this test is 30. A score of of between 27-30 is considered normal. A score of 24-26 is considered mildly impaired. A score of 20-23 is impaired. Scores below 20 show moderate impairment and 10 or below shows severe impairment. Diagnosis We think that the changes [...] how your memory haschanged. Medications: We recommend starting buspirone 5 mg twice daily for anxiety. We can increase to three times daily if this dose is not effective in reducing his anxiety. Additional Recommendations: Nutrition: We recommend that you [...] Program, from The Alzheimer's Association, please call [phone], or you can register online [email or web address]. 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 Legal: No legal concerns were discussed today. RESOURCES FOR ADDITIONAL INFORMATION AND SUPPORT Opportunities to participate in research can be found at: trialmatch.[employer].org Access TrialMatch online. For additional assistance, email TrialMatch@[employer].org or call 256.504.5196 (press 1 for clinical trials). ClinicalTrials.gov is a resource provided by the U.S. National Library of Medicine. You can look upclinical trials (research opportunities) online At clinicaltrials.gov Alzheimer's Association [facility] Chapter: ; (toll free); http://www.alz.org, The Alzheimer's Association 05/03 Helpline provides reliable information and support to all those who need assistance. Call toll-free anytime day or night at . Caregiver Guide: tips for caregivers of people with Alzheimer's dementia, www.smiley.nih.gov/Alzheimers /Publication/Easqur-mpdkbm-ptimwmyfyq-disease/about-guide [facility], [address] [place] [address]. [address], , Occupational Therapists who offers caregiver training, family support, and in home safety assessments at no cost. [facility]org [facility] Agency on Aging (serving [facility]) http://[facility].[place].org/government/hslaaa.html [facility] Agency on Aging (serving [place] [email or web address] If you need to reach our office, please call our nurse at [phone], option 4, leave a message, this voicemail is checked several times per day. If you need to contact our social worker masters: Alan Be or Jose Angel Arriola, from the Alzheimer's Association, please call [phone] No future appointments. I spent 45 minutes,face [...] and updated to reflect the currentclinical condition. Karina Joseph MSN, NUTRITION HELPER-[facility] [facility], [address] [place] [address] documented in this encounter Plan of Treatment Not on file documented as of this encounter Visit Diagnoses Diagnosis 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 disturbance (HCC)- Primary Anxiety and depression documented in this encounter Discontinued Medications Medication Sig Discontinue Reason Start Date End Da te atorvastatin (LIPITOR) 10 mg tablet Take 10 mg by mouth daily. 08/17/2018 01/16/2023 documented as of this encounter Care Teams Program Coordinator For Residence Life Relationship Specialty Start Date End Date Ganesh Prince MD PCP - General 11/28/17 documented as of this encounter
--- OUTSIDE RECORDS SUMMARY | 2024-08-13 04:56 | XMS_ITS | Encounter Summary ---
Author Organization [facility] Healthcare Address [address] [place] [address] Care Team Providers Care Drycleaner Name Role Phone Ganesh Prince MD Primary Care Provider [phone] Reason for Referral * Neurology (Routine) - Closed Specialty Diagnoses / Procedures Referred By Contac t Referred To Contact Neurology Diagnoses 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 disturbance (HCC) Procedures EEG Karina Joseph NP Phone: tel: fax: Referral ID Status Reason Start Date Expiration Date Visits Re quested Visits Authorized [id number] Closed 12/29/2021 01/28/2023 1 1 Reason for Visit * Neurology (Routine) - Closed Specialty Diagnoses / Procedures Referred By Contac t Referred To Contact Neurology Diagnoses 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 disturbance (HCC) Procedures EEG Karina Joseph NP Phone: tel: fax: Referral ID Status Reason Start Date Expiration Date Visits Re quested Visits Authorized [id number] Closed 12/29/2021 01/28/2023 1 1 Encounter Details Date Type Department Care Team (Latest Contact Info) Description 01/13/2022 12:38 PM CDT - 01/13/2022 11:59 PM CDT Hospital Encounter [facility] [address] [place] [address] Ariel Truong 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 disturbance (HCC) Discharge Disposition: Discharge to home or self care Social History Tobacco Use Types Packs/Day Years Used Date Smoking Tobacco: Former Alcohol Use Standard Drinks/Week Comments Yes 0 (1 standard drink = 0.6 oz pur e alcohol) Sex and Gender Information Value Date Recorded Sex Assigned at Not on file 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 3 08/17/2018 3 donepeziL (ARICEPT) 10 mg tablet TAKE 1 TABLET EVERY DAY WITH BREAKFAST 90 tablet 3 07/27/2021 2 escitalopram (LEXAPRO) 20 mg tabletIndication s:Anxiety with Depression TAKE 1 TABLET (20 MG TOTAL) BY MOUTH DAILY 90 tablet 3 07/27/2021 3 memantine (Namenda Titration Fernando) tablet pack Use as directed for first month 1 each 12/27/2021 2 documented as of this encounter Discharge Disposition Disposition Code Departure Means Destination Discharge to home or self care documented in this encounter Plan of Treatment Not on file documented as of this encounter Procedures Procedure Name Priority Date/Time Associated Diagnosis Comments EEG Routine 01/13/2022 2:13 PM CDT 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 disturbance (HCC) documented in this encounter Results * EEG (01/13/2022 2:13 PM CDT) Anatomical Region Laterality Modality EEG Narrative 01/13/2022 4:23 PM CDT Routine EEG Report Patient Name: Ganesh Stephenson [facility] Medical Record Number (MRN): [id number] [facility] Record: [id number] Date of (): 1960 EEG Date: 01/13/2022 Ordering Provider: Karina Joseph NP CC: Ganesh Prince Start Time: 01/13/2022 1:36:51 PM ? End Time: 01/13/2022 1:57:53 PM Introduction: Mr. Stephenson is a 61 y.o. male with a history of memory difficulty, presenting with seizure-like symptoms. The EEG was performed to evaluate for seizures. This is a 32 channel EEG recording acquired on a Phunware EEG-1200 acquisition system. Scalp electrodes were placed [...] intent. Signing Attending: Alpesh Nance MD PhD Karina Joseph WELD ENGINEER NEUROLOGY ORDERABLES Final Result documented in this encounter Visit Diagnoses Diagnosis 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 disturbance (HCC) documented in this encounter Care Teams Drycleaner Relationship Specialty Start Date End Date Ganesh Prince MD PCP - General 11/28/17 documented as of this encounter
--- OUTSIDE RECORDS SUMMARY | 2024-08-13 04:56 | XMS_ITS | Encounter Summary ---
Author Organization [facility] Healthcare Address [address] [place] [address] Care Team Providers Care Chest Painting And Sealing Supervisor Name Role Phone Ganesh Prince MD Primary Care Provider [phone] Encounter Details Date Type Department Care Team (Late st Contact Info) Description 12/07/2022 2:30 PM CDT Lab [address] [address] Social History Tobacco Use Types Packs/Day Years Used Date Smoking Tobacco: Former Alcohol Use Standard Drinks/Week Comments Yes 0 (1 standard drink = 0.6 oz pur e alcohol) Sex and Gender Information Value Date Recorded Sex Assigned at Not on file 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 Gender Identity Not on file Sexual Orientation Not on file documented as of this encounter Plan of Treatment Not on file documented as of this encounter Procedures Procedure Name Priority Date/Time Associated Diagnosis Comments CREATININE, WHOLE BLOOD STAT 12/07/2022 2:36 PM CDT documented in this encounter Results * Creatinine, whole blood (12/07/2022 2:36 PM CDT) Creatinine, bld 0.90 0.60 - 1.30 mg/dL [facility] (HINES) Blood 12/07/2022 2:36 PM CDT 12/07/2022 2:40 PM CDT us Ganesh Prince MD LAB BLOOD ORDERABLES Final R esult [facility] (HINES) [address] [facility] Department [place] [address] documented in this encounter Visit Diagnoses Not on filedocumented in this encounter Care Teams Chest Painting And Sealing Supervisor Relationship Specialty Start Date End Date Ganesh Prince MD PCP - General 11/28/17 documented as of this encounter
--- OUTSIDE RECORDS SUMMARY | 2024-08-13 04:56 | XMS_ITS | Encounter Summary ---
Author Organization [facility] Address [address] [place] [address] Phone Care Team Providers Care Tobacco Cutter Name Role Phone Ganesh Prince MD Primary Care Provider [phone] Reason for Referral * Neurology (Routine) - Closed Specialty Diagnoses / Procedures Referred By Samira t Referred To Contact Neurology Diagnoses 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 disturbance (HCC) Procedures EEG Flores Moore MD PhD [address] [place] [address] Phone: tel: fax:[phone] Referral ID Status Reason Start Date Expiration Date Visits Re quested Visits Authorized [id number] Closed 07/21/2019 01/29/2021 1 1 ICATION SECURITY DEVELOPER Reason for Visit * Reason Comments Return Patient * Neurology (Routine) - Closed Specialty Diagnoses / Procedures Referred By Samira yu Referred To Contact Neurology Diagnoses no v/m set-up to lvm to cnf appt clara r/m ltr snt 07/15/19 mw 9 MTH EITHER NEY OR CW Procedures RETURN Ganesh Prince MD [address] [place] [address] Phone: tel: fax: Flores Moore MD PhD [address] [place] [address] Phone: tel: fax:[phone] Referral ID Status Reason Start Date Expiration Date Visits Re quested Visits Authorized [id number] Closed 07/21/2019 01/29/2021 1 1 Encounter Details Date Type Department Care Team (Late st Contact Info) Description 07/21/2019 4:30 PM APPLICATION SECURITY DEVELOPER Office Visit [facility] [address] [address] [place] [address] [place] [address] Flores Moore MD PhD [address] [place] [address] 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 disturbance (CMS/HCC) (Primary Dx) Social History Tobacco Use Types Packs/Day Years Used Date Smoking Tobacco: Former Alcohol Use Standard Drinks/Week Comments Yes 0 (1 standard drink = 0.6 oz pur e alcohol) Sex and Gender Information Value Date Recorded Sex Assigned at Not on file Legal Sex Male 8:13 AM APPLICATION SECURITY DEVELOPER Gender Identity Not on file Sexual Orientation Not on file documented as of this encounter Last Filed Vital Signs Vital Sign Reading Time Taken Comments Blood Pressure 117/64 07/21/2019 4:13 PM APPLICATION SECURITY DEVELOPER Pulse 93 07/21/2019 4:13 PM APPLICATION SECURITY DEVELOPER Temperature - - Respiratory Rate - - Oxygen Saturation - - Inhaled Oxygen Concentration - - Weight 84.9 kg (187 lb 3.2 oz) 07/21/2019 4:13 P M APPLICATION SECURITY DEVELOPER Height 167.6 cm (5' 6 ) 07/21/2019 4:13 PM APPLICATION SECURITY DEVELOPER Body Mass Index 30.21 07/21/2019 4:13 PM APPLICATION SECURITY DEVELOPER documented in this encounter Patient Instructions * Patient Instructions* Flores Moore MD PhD - 07/21/2019 4:30 PM APPLICATION SECURITY DEVELOPER [facility] - VISIT SUMMARY & PATIENT INSTRUCTIONS For Mr. Ganesh Maciel (: 1960) Courtesy of, Dr. Flores Moore MD, PhD [facility], Departments of Neurology and Psychiatry Clinic (Nurse Pilar Miner) FEEDBACK/DIAGNOSTIC ISSUES REGARDING BRAIN HEALTH Thank you for coming to the [facility] for your neurological assessment today. Based on [...] required at this time 3. Other testing: Electroencephalogram (EEG) 4. I will request that an outpatient clinic visit be scheduled with the following service(s): Not applicable. No additional referrals are recommended at this time. 5. I have recommended that you follow-up with your primary care practitioner to discuss: Control ofvascular risk factors (e.g., high blood pressure, high cholesterol, high blood glucose) MEDICATIONS PRESCRIBED Changes to your medications were recommended today. Continue donepezil 10mg daily. Increase escitalopram to 20mg daily to better address mood symptoms. Will hold off on memantine for now as it can contribute to sleepiness. Check EEG given spells of terrible smells, feeling cold, dizziness and being out of it for 30 minutes. Recommend holding off the Meclizine and/or dramamine if possible. ADDITIONAL RECOMMENDATIONS/RESOURCES Nutrition. I recommend that you [...] for your future (Living Will, Power of Men'S Designer for Health Care). and I have recommended that you implement a durable power of attorney general or guardianship. Level of Care Recommendation: You can continue to live independently. Community Organizations: I have recommended that you establish contact with the Alzheimer's Association to discuss available resources, including information concerning your diagnosis and the things that you and your family can do to help to manage symptoms associated with this disease. Please [phone], or (toll free), or visit [email or web address].org. RESEARCH STUDIES Participation in research studies was not discussed today. FOLLOW-UP You should return to see Dr. Burns Or JARRED Adorno in about a year. Please make your appointment as you leave today, or call [phone]. You should continue to see your primary care doctor at regular intervals. Flores Moore MD, PhD Low Heel Builder of Neurology and Psychiatry [facility] [address] [place] [address], [address], [place] [address] ICATION SECURITY DEVELOPER documented in this encounter Ordered Prescriptions Prescription Sig Dispense Quantity Refills Last Filled Start Date End Date escitalopram (LEXAPRO) 20 mg tabletIndications: Anxiety with Depression Take 1 tablet (20 mg total) by mouth daily 90 tablet 3 07/21/2019 08/09/2020 documented in this encounter Progress Notes * Flores Moore MD PhD - 07/21/2019 4:30 PM CST [facility] RETURN PATIENT VISIT Flores Moore MD, PhD [facility] Departments of Neurology and Psychiatry Patient Name: GANESH MACIEL Medical Record Number (MRN): [id number] Date of (): 1960 Encounter Date: 07/21/2019 Referring MD: Dr. Ganesh Prince MD Primary Care Practitioner: Dr. Ganesh Prince MD CHIEF COMPLAINT Mr. Maciel is referred by Dr. Ganesh Prince MD for the assessment of AD. HISTORY OF PRESENT ILLNESS Mr. Maciel is a 58 y.o. right handed gentleman who [facility] today accompanied by his who serves as the Collateral Source (CS). Mr. Maciel lives with his spouse, intheir private home. The CS sees him daily. He is in generally good health. Pt was last seen at [facility] 08/2018. Their diagnosis then was EOAD, anxiety, depression (CDR 1, SB 5). The plan then was to continue donepezil 10, escitalopram 10. Pt was on Meclizine 12.5 TID for vertigo. He returns today for follow-up. Interim hx: CS report pt is more agitated and generally unaccepting of his dx. Pt has no social like because others drink and he cannot (alcohol abuse hx). He does ok in not drinking scenarios. Pt gets crabby about the drinking. It is a slippery slope with him and alcohol. Meds: Tolerated donepezil 10 without issue. No GI side effects. No impact on sleep. CS reports pt is no longer on MVI and folic acid. Dizziness: Up to 3 spells per day. Starts with smelling a terrible smell, then feeling cold, then dizzy. Occasionally a connection with position change but this is not a main or consistent feature. Pt is out of it for 30 minutes. Meds +/- help. Ran out of Meclizine prn and CS bought dramamine for pt. He is not reliable in recalling details of recent events. Difficulties with STM, new material rapidly lost. Occurs daily, worse over past year, interferes with activities. Concerning orientation, he usually does not know the month, year, and season, has difficulty with time relationships and is unable to navigate in familiar areas. 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 Generally recognizes familiar areas. He does not wander. Judgment and problem solving abilities are poor. He has difficulty with understanding more complex issue. Poor thought process re: cooking, shopping, cleaning yard. He is appropriate in social situations. Runs into people at the store and gets involved in conversations. Pt would be able to get himself out of harm's way in an emergency. He has given up several community activities. Does not attend temple on his own. He drives without dings, accidents, or tickets. Prefers CS drive. Pt does not make a list for shopping. Does need to double back for a forgotten item. His function at home is moderately impaired. He is able manage simple chores (e.g., vacuuming). He is no longer able to manage routine home maintenance: yard work, medical charge entry specialist, air blower, weed merry. Difficulty figuring out equipment event with instructions. Watches the same reruns on TV. Plays golf in different league than CS. They are going to have different partners but play golf on the same nights moving forward. Bowls with [id number] Qweek and now only [id number] because he feels like he is a burden on the other. He has difficulty recalling which abelino he is playing in. He needs prompting to bathe or groom. Issues with showering, shaving, changing clothes The CS reports that mood is fair. Agitated. Behavioral changes were assessed by administering the NPI-Q (Neuropsychiatric Inventory Questionnaire) to the CS: Delusions: absent Hallucinations: absent Agitation or Aggression: present --More agitated Depressed Mood: present Anxiety: present Elation or Euphoria: absent Apathy or Indifference: absent Disinhibition: absent Irritability or lability: present; thompson Nighttime behaviors/Sleep disturbance: present --Sleeps a lot. Goes to bed at 2200; up at 10/11AM. No wandering at night. Appetite or eating issues/weight loss or gain: present --Eats trail mix, a lot. ACTIVE PROBLEMS Patient Active Problem List Diagnosis ??? Sleep apnea ??? Multiple-type hyperlipidemia ??? Vitamin D deficiency ??? Gout ??? Healthcare maintenance ??? Medication management ??? 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 JEANETTE (generalized anxiety disorder) ??? Anxiety and depression ??? 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 disturbance (CMS/HCC) PAST MEDICAL HISTORY Past Medical History: Diagnosis Date ??? Alzheimer's disease (CMS/HCC) ??? Anxiety ??? Gout gout ??? HX OTHER MEDICAL 1985 +ppd inh ??? HX OTHER MEDICAL 1986 [...] 3 ??? donepezil (ARICEPT) 10 mg tablet, TAKE 1 TABLET BY MOUTH EVERY DAY WITH BREAKFAST, Disp: 90 tablet, Rfl: 3 ??? meclizine (ANTIVERT) 12.5 mg tablet, Take 12.5 mg by mouth 3 (three) times a day as needed., Disp: , Rfl: ??? escitalopram (LEXAPRO) 20 mg tablet, Take 1 tablet (20 mg total) by mouth daily, Disp: 90 tablet, Rfl: 3 ??? folic acid (FOLVITE) 1 mg tablet, Take 1,000 mcg by mouth daily., Disp: , Rfl: 0 ??? SPECTRAVITE SENIOR tablet, Take 1 tablet by mouth daily., Disp: , Rfl: 0 FAMILY & SOCIAL HISTORY Family [...] file Occupational History ??? Not on file Social Needs ??? Financial resource strain: Not on file ??? Food insecurity: Worry: Not on file Inability: Not on file ??? Transportation needs: Medical: Not on file Non-medical: Not on file Tobacco Use ??? Smoking status: Former Smoker Substance and Sexual Activity ??? Alcohol use: Yes ??? Drug use: Not on file ??? Sexual activity: Not on file Lifestyle ??? Physical activity: Days per week: Not on file Minutes per session: Not on file ??? Stress: Not on file Relationships ??? Social connections: Talks on phone: Not on file Gets together: Not on file Attends zoroastrianism service: Not on file Active member of club or organization: Not on file Attends meetings of clubs or organizations: Not on file Relationship status: Not on file ??? Intimate partner violence: Fear of current or ex partner: Not on file Emotionally abused: Not on file Physically abused: Not on file Forced sexual activity: Not on file Other Topics Concern ??? Not on file Social History Narrative Alcohol use : (Added by TW Conv) REVIEW OF SYSTEMS See Review of Systems form filled out by the patient and/or collateral source for today's visit. Reviewed and scanned into Electronic Health Record. PHYSICAL EXAMINATION BP 117/64 (BP Location: Left arm, Patient Position: Sitting) Pulse 93 Ht 167.6 cm (5' 6 ) Wt 84.9 kg (187 lb 3.2 oz) BMI 30.21 kg/m?? General Assessment There were no orthostatic complaints. Speech is fluent. Repetition: Intact. He had good insight into why he had come to the [facility]. He was able to subtract serials threes, calculate the number of quarters in $6.75 and draw a clock. PSYCHOMETRIC TESTING REPORT Please see neurobehavioral exam results (below) and summary sheet in the chart for test scores. On formal neurobehavioral testing, which took from 3128-4963, scores were in the normal range on tests of semantic memory ([place] Naming, verbal fluency). Scores were in the mildly impaired range on tests of episodic memory (word list memory task, word list recall, logical memory). Scores were in the borderline on tests of speeded psychomotor performance (trailmaking A and B, digit symbol). On more global tests, MMSE was 26 and Short Blessed was 9 with errors primarily in episodic memory. These findings are consistent with mild impairment, and could be seen in, but are not specific for symptomatic Alzheimer disease. Mr. Maciel indicated a positive response to 2 of 8 answers on the Geriatric Depression Screening test. He endorsed feeling sad, blue or depressed for two weeks or longer during the prior year. In general, 4 or more positive responses on the Geriatric Depression Screening test are common in patients with active depression. My review and interpretation and reporting of these results took 2112-1996 minutes, including time spent comparing current performance to previous test results (when available). Verbal Fluency Score (total # animals): 14 [place] Naming Test 15 Item [place] Naming Total Score (out of 15): 15 Mini-Mental Total Score ((out of 30): 26 Word List Memory Task (total score out of 30): 14 Word List Recall (total score out of 10): 0 Logical Memory Total Score (out of 25): 2 Patient completed Trails A in (seconds): 36 Trails A # of errors: 0 Patient completed Trails B in (seconds): 0 Trails B # of errors: 0 Digit symbol Total Score (out of 90): 24 Clinical Dementia Rating Memory: 2 Moderate Orientation: 1 Mild Judgement & Problem Solvin Moderate Community Affairs: 1 Mild Home & Hobbies: 2 Moderate Personal Care: 1 Mild Global Score: 1 Sum of Boxes: 9 ADDITIONAL SUMMARY OF RELEVANT MEDICAL RECORDS/ TESTING 2019 [facility] note reviewed. Medications reviewed. Lab Results Component Value Date VITB12 389 02/21/2017 Lab Results Component Value Date TSH 2.38 01/28/2017 N6HDPRP 5.1 05/19/2013 Lab Results Component Value Date FREET4 1.0 03/14/20162014 bMRI (Age 54) Brain MRI report and images personally reviewed. Enlarged temporal horns Enlarged occipital horns, lateral ventricles Diffuse atrophy 2017 bMRI (3D) - re-reviewed Left hippo 12th %ile Right hippo 2nd %ile Parietal 1st %ile Occipital 6th %ile Generalized volume loss 2017 CSF ADMark 177 Abeta 42 573 T-Tau 406 P-Tau 64 (cut off for elevated is 68) ATI 0.80 Of note: P-tau >68 and ATI <0.8 is c/w AD POST VISIT RESULTS 09/29/19 EEG There were no focal, lateralized or epileptiform abnormalities. ?? Interpretation: The EEG was abnormal due to mild generalized slowing. Generalized slowing indicates diffuse cerebreal dysfunction as seen in toxic, metabolic or diffuse or multifocal structural abnormalities. DIAGNOSIS AND ASSESSMENT Mr. Maciel is a 58 y.o. gentleman who presents with a 5 year history of slowly progressive cognitive decline. Dx: EOAD PLAN 1. 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 disturbance (CMS/HCC) Orders Placed This Encounter Procedures ??? EEG Standing Status: Future Standing Expiration Date: 07/21/2020 Order Specific Question: Procedure performed at: Answer: [facility] Order Specific Question: EEG Type: Answer: Routine Order Specific Question: Reason for exam: Answer: episodes of terrible smell, cold, dizzy 1. Laboratory evaluation: A. Laboratory studies are reviewed and are complete. No further testing is indicated at this time. B. Neuroimaging is not required at this time. C. Check EEG given spells of terrible smells, feeling cold, dizziness and being out of it for 30 minutes. 2. Treatment: Changes to your medications were recommended today. Continue donepezil 10mg daily. Increase escitalopram to 20mg daily to better address mood symptoms. Will hold off on memantine for now as it can contribute to sleepiness. Recommend holding off the Meclizine and/or dramamine if possible. 3. Activity: I recommended that Mr. Maciel [...] the Alzheimer???s Association for additional educational resources. 6. Follow-up: We will plan to see him again in 1 year or he can follow-up with his primary care physician and see us on an as-needed basis. --- I spent from 2249-0108 in direct contact with Mr. Maciel and the CS, excluding time spent interpreting and reporting the results of cognitive testing. >50% of this time was spent counselling concerning the diagnosis, recommended investigations and potential prognosis / expected course of disease. Flores Moore M.D., Ph.D. Low Heel Builder of Neurology and Psychiatry [facility] [address] [place] [address], [address], [place] [address] ICATION SECURITY DEVELOPER ICATION SECURITY DEVELOPER documented in this encounter Miscellaneous Notes * Assessment & Plan Note - Flores Moore MD PhD - 07/21/2019 5:29 PM APPLICATION SECURITY DEVELOPER Associated Problem(s): 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 disturbance (HCC) (Resolved 04/24/2024) Continue donepezil 10mg daily. Increase escitalopram to 20mg daily to better address mood symptoms. Will hold off on memantine for now as it can contribute to sleepiness. Check EEG given spells of terrible smells, feeling cold, dizziness and being out of it for 30 minutes. Recommend holding off the Meclizine and/or dramamine if possible. ICATION SECURITY DEVELOPER documented in this encounter Plan of Treatment Not on file documented as of this encounter Results * EEG (09/29/2019 2:16 PM APPLICATION SECURITY DEVELOPER) Anatomical Region Laterality Modality EEG Narrative 09/29/2019 4:21 PM APPLICATION SECURITY DEVELOPER Routine EEG Report Patient Name: Ganesh Maciel [facility] Medical Record Number (MRN): [id number] [facility] Record: [id number] Date of (): 1960 EEG Date: 09/29/2019 Ordering Provider: Flores Moore MD PhD CC: Ganesh Prince Start Time: 09/29/2019 1:45:08 PM ? End Time: 09/29/2019 2:07:18 PM Introduction: Mr. Maciel is a 58 y.o. male with a history of multiple brain traumas and cognitive decline, presenting with altered mental status and seizure-like activity. EEG was performed to evaluate for seizures. This is a 32 channel EEG recording acquired on a Not iT EEG-1200 acquisition system. Scalp electrodes were placed according to the international 10-20 System. The analog EEG was filtered from 1-70 Hz and digitally sampled at 200 Hz. The record was then reformatted for review in bipolar and referential montages. EEG Description: The awake background included a 9.5 Hz posterior rhythm which attenuated with eye opening and activity. The background also included intermitted admixed theta and delta range activity. During drowsiness, identified by ocular signs and alpha attenuation, there was intermittent, diffuse, asynchronous theta activity admixed with 2-4 Hz polymorphic frontotemporal delta activity. Hyperventilation was not performed. Photic strobe stimulation elicited no abnormalities. There were no focal, lateralized or epileptiform abnormalities. Interpretation: The EEG was abnormal due to mild generalized slowing. Generalized slowing indicates diffuse cerebreal dysfunction as seen in toxic, metabolic or diffuse or multifocal structural abnormalities. By signing this report, the attending Electroencephalographer certifies that he/she personally reviewed the electrodiagnostics study and has edited this report to fully conform with his/her intent. Signing Attending: Bharathi Lin MD PhD Flores Moore MD PhD NEUROLOGY ORDERABLES Final Result documented in this encounter Visit Diagnoses Diagnosis 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 disturbance (HCC)- Primary 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 disturbance (HCC) documented in this encounter Discontinued Medications Medication Sig Discontinue Reason Start Date End Da te escitalopram (LEXAPRO) 10 mg tablet TAKE 1 TABLET BY MOUTH EVERY DAY 11/12/2018 07/21/2019 documented as of this encounter Care Teams Tobacco Cutter Relationship Specialty Start Date End Date Ganesh Prince MD PCP - General 11/28/17 documented as of this encounter
--- OUTSIDE RECORDS SUMMARY | 2024-08-13 04:56 | XMS_ITS | Encounter Summary ---
Author Organization [facility] Medical Group Address [address] [facility] [address] [place] [address] Care Team Providers Care Sharepoint Designer Developer Name Role Phone Ganesh Prince MD Primary Care Provider [phone] Reason for Visit * Reason Comments Cerumen Impaction Encounter Details Date Type Department Care Team (Late st Contact Info) Description 12/20/2021 12:30 PM CDT Office Visit [facility] [address] [facility] [place] [address] Aebl Nieves, PA [address] [facility] [address] [place], [place] [id number] Acute otitis media, unspecified otitis media type (Primary Dx); Impacted cerumen of left ear Social History Tobacco Use Types Packs/Day Years Used Date Smoking Tobacco: Former Alcohol Use Standard Drinks/Week Comments Yes 0 (1 standard drink = 0.6 oz pur e alcohol) Sex and Gender Information Value Date Recorded Sex Assigned at Not on file Legal Sex Male 8:13 AM HAND SLITTER Gender Identity Not on file Sexual Orientation Not on file documented as of this encounter Last Filed Vital Signs Vital Sign Reading Time Taken Comments Blood Pressure 132/80 12/20/2021 12:38 PM CDT Pulse 82 12/20/2021 12:38 PM CDT Temperature 36.8 ??C (98.3 ??F) 12/20/2021 12:38 PM C DT Respiratory Rate 16 12/20/2021 12:38 PM CDT Oxygen Saturation 97% 12/20/2021 12:38 PM CDT Inhaled Oxygen Concentration - - Weight 72.6 kg (160 lb) 12/20/2021 12:38 PM CDT Height - - Body Mass Index 25.82 12/27/2020 3:47 PM CDT documented in this encounter Patient Instructions * Patient Instructions* Abel Nieves PA - 12/20/2021 12:30 PM CDT You had your ears flushed out today You may still need to soften the wax in your ears You may use hydrogen peroxide and mineral oil or Debrox drops Instill it in your ear canal & let sit for 15min. Do both ears. You can do this multiple times a week and prophylactically Do not use Qtips in your ears. This only pushes wax down into your ear canal documented in this encounter Ordered Prescriptions Prescription Sig Dispense Quantity Refills Last Filled Start Date End Date amoxicillin (AMOXIL) 875 mg tabletIndications: Acute otitis media, unspecified otitis media type Take 1 tablet (875 mg total) by mouth 2 (two) times a day for 10 days 20 tablet 12/20/2021 12/30/2021 documented in this encounter Progress Notes * Abel Nieves PA - 12/20/2021 12:30 PM CDT Images from the original note were not included. Subjective/Objective Patient ID: Ganesh Stephenson is a 61 y.o. male. Chief Complaint Cerumen Impaction 61-year-old white male complaining of left ear pain and pressure and fullness for 1 week. Review of Systems Constitutional: Negative for chills and fever. HENT: Positive for ear pain. Negative for congestion, postnasal drip, rhinorrhea, sinus pressure and sore throat. Respiratory: Negative for cough, shortness of breath and wheezing. Gastrointestinal: Negative for diarrhea, nausea and vomiting. Musculoskeletal: Negative for myalgias. Physical Exam Constitutional: Appearance: Normal appearance. He is not ill-appearing. HENT: Head: Normocephalic and atraumatic. Right Ear: Hearing, tympanic membrane, ear canal and external ear normal. Left Ear: Hearing normal. There is impacted cerumen. Nose: No congestion. Right Sinus: No maxillary sinus tenderness or frontal sinus tenderness. Left Sinus: No maxillary sinus tenderness or frontal sinus tenderness. Mouth/Throat: Mouth: Mucous membranes are moist. Pharynx: Oropharynx is clear. Uvula midline. No pharyngeal swelling, oropharyngeal exudate, posterior oropharyngeal erythema or uvula swelling. Tonsils: No tonsillar exudate or tonsillar abscesses. Eyes: Conjunctiva/sclera: Conjunctivae normal. Pupils: Pupils are equal, round, and reactive to light. Cardiovascular: Rate and Rhythm: Normal rate and regular rhythm. Pulmonary: Effort: Pulmonary effort is normal. Breath sounds: Normal breath sounds and air entry. Musculoskeletal: Cervical back: Normal range of motion. Lymphadenopathy: Cervical: No cervical adenopathy. Skin: General: Skin is warm and dry. Neurological: Mental Status: He is alert. Mental status is at baseline. Psychiatric: Attention and Perception: Attention normal. Behavior: Behavior normal. Vitals: 12/20/21 1238 BP: 132/80 Pulse: 82 Resp: 16 Temp: 36.8 ??C (98.3 ??F) SpO2: 97% Weight: 72.6 kg (160 lb) Assessment/Plan You had your ears flushed out today You may still need to soften the wax in your ears You may use hydrogen peroxide and mineral oil or Debrox drops Instill it in your ear canal & let sit for 15min. Do both ears. You can do this multiple times a week and prophylactically Do not use Qtips in your ears. This only pushes wax down into your ear canal Diagnoses and all orders for this visit: Impacted cerumen of left ear (Primary) No results found for this or any previous visit (from the past 4 hour(s)). Patient Education: Disposition ??? Treatment plan including expectations, follow up, and return precautions discussed with patient/parent, verbalizes understanding. ??? Medication dosage, use, and potential adverse reactions discussed with patient/parent. ??? Advised to follow up with PCP if symptoms do not resolve as expected or sooner if condition worsens. ??? Signs/symptoms warranting ER evaluation reviewed. ??? Patient and/or guardian was given an opportunity to ask questions, questions answered. LESLI Davis PA Cosigned by Brenda Manzano DO at 12/20/2021 1:16 PM CDT documented in this encounter Plan of Treatment Not on file documented as of this encounter Visit Diagnoses Diagnosis Acute otitis media, unspecified otitis media type- Primary Impacted cerumen of left ear Impacted cerumen documented in this encounter Care Teams Sharepoint Designer Developer Relationship Specialty Start Date End Date Ganesh Prince MD PCP - General 11/28/17 documented as of this encounter
--- OUTSIDE RECORDS SUMMARY | 2024-08-13 04:56 | XMS_ITS | Encounter Summary ---
Author Organization [facility] Address [address] [place] [address] Phone Care Team Providers Care High School History Teacher Name Role Phone Ganesh Prince MD Primary Care Provider [phone] Encounter Details Date Type Department Care Team (Late st Contact Info) Description 01/20/[address] 6[address] [place] [address] Silvia Moraes Social History Tobacco Use Types Packs/Day Years Used Date Smoking Tobacco: Former Alcohol Use Standard Drinks/Week Comments Yes 0 (1 standard drink = 0.6 oz pur e alcohol) Sex and Gender Information Value Date Recorded Sex Assigned at Not on file Legal Sex Male 8:13 AM TALENT SOURCER Gender Identity Not on file Sexual Orientation Not on file documented as of this encounter Progress Notes * Silvia Moraes - 01/20/2023 9:33 PM CDT On 01/16/23 This CC conducted unscheduled in-person care consultation w/Murtaza Seema at the [address] [facility] following referral by the nurse practitioner. She???s the PCG for her , Ganesh, who has AD. They live in [place], [place]. Ganesh is pacing a lot and has lost 12 lb since his last appointment. Murtaza reported that it's difficult to get him to eat. she will ask him if he wants to have a meal and he'll say no. She was coached to tell him it's time for his meal, rather than asking him if he wants to eat. she immediately verbalized understanding and it made sense to her. she has also learned not to argue with him about changing his clothes or showering. she'll be retiring in October of 2023. She isn't letting Ganesh drink alcohol at all. This CC referred her to [facility] to find out if they're eligible for any state or local assistance. Adult Day programs were discussed and she's interested in trying one. For support for her, this CC recommended caregiver support group and free caregiver counseling offered through [facility]. Action Plan: 1) Murtaza will contact [employer] to find out if they???re eligible for any assistance. 2) Murtaza will explore ADC options. A list was provided. 3) Murtaza will consider using a caregiver support group. 4) Murtaza will consider using free caregiver counseling offered through [facility]. Contact info for [facility] was provided. documented in this encounter Plan of Treatment Not on file documented as of this encounter Visit Diagnoses Not on filedocumented in this encounter Care Teams High School History Teacher Relationship Specialty Start Date End Date Ganesh Prince MD PCP - General 11/28/17 documented as of this encounter
--- OUTSIDE RECORDS SUMMARY | 2024-08-13 04:56 | XMS_ITS | Encounter Summary ---
Author Organization [facility] Healthcare Address [address] [place] [address] Care Team Providers Care Branding Machine Tender Name Role Phone Ganesh Prince MD Primary Care Provider [phone] Reason for Visit * Reason Comments Fall Fall head injury Encounter Details Date Type Department Care Team (Late st Contact Info) Description 07/22/2024 3:42 AM IRON ASSORTER - 07/22/2024 7:51 AM IRON ASSORTER Emergency [facility] Emergency Department [address] [place] [address] Yoanna Ugarte MD [address] [place] [address] Closed head injury, initial encounter (Primary Dx) Discharge Disposition: Discharge to home or self care Social History Tobacco Use Types Packs/Day Years Used Date Smoking Tobacco: Former Alcohol Use Standard Drinks/Week Comments Yes 0 (1 standard drink = 0.6 oz pur e alcohol) Sex and Gender Information Value Date Recorded Sex Assigned at Not on file Legal Sex Male 8:13 AM IRON ASSORTER Gender Identity Not on file Sexual Orientation Not on file documented as of this encounter Last Filed Vital Signs Vital Sign Reading Time Taken Comments Blood Pressure 106/69 07/22/2024 6:00 AM IRON ASSORTER Pulse 74 07/22/2024 6:00 AM IRON ASSORTER Temperature 36.9 ??C (98.4 ??F) 07/22/2024 1 2:22 AM IRON ASSORTER Respiratory Rate 18 07/22/2024 5:00 AM IRON ASSORTER Oxygen Saturation 95% 07/22/2024 6:00 AM IRON ASSORTER Inhaled Oxygen Concentration - - Weight 72.1 kg (158 lb 15.2 oz) 024 12:22 AM IRON ASSORTER Height 167.6 cm (5' 5.98 ) 07/22/2024 1 2:22 AM IRON ASSORTER Body Mass Index 25.67 07/22/2024 12:22 AM IRON ASSORTER documented in this encounter Discharge Instructions * Discharge Instructions* Yoanna Ugarte MD - 07/22/2024 6:[address] imaging of head is negative. The lab work was otherwise benign. Take all medicines as prescribed. Return if worse or as needed. ASSORTER * Attachments The following attachments cannot be sent through Care Everywhere. * Head Injury (Adult) (Haitian) documented in this encounter Medications at Time of Discharge donepeziL (ARICEPT) 10 mg tablet Take 1 tablet (10 mg total) by mouth daily after breakfast 90 tablet 3 05/22/2023 LORazepam (ATIVAN) 0.5 mg tablet Take 1 tablet (0.5 mg total) by mouth 2 (two) times a day as needed 01/03/2024 memantine (NAMENDA) 10 mg tablet Take 1 tablet (10 mg total) by mouth daily 90 tablet 3 03/27/2024 QUEtiapine (SEROquel) 50 mg tablet Take 1 tablet (50 mg total) by mouth 3 (three) times a day For agitation 180 tablet 6 04/24/2024 documented as of this encounter Discharge Disposition Disposition Code Departure Means Destination Comment s Discharge to home or self care documented in this encounter ED Notes * Yoanna Ugarte MD - 07/22/2024 4:43 AM CST Chief Complaint Patient presents with Fall Fall head injury 63 y/o M with fall at memory care unit. Pt was admitted there 4 days ago. Pt fell and hit head at the memory care. No LOC. No nausea or emesis. Per , pt is tremulous. 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 History provided by: Patient Fall Mechanism of injury: fall Injury location: Head/neck Head/neck injury location: Head Incident location: detention Time since incident: 8 hours Arrived directly from scene: yes Fall: Point of impact: Head Entrapped after fall: no Suspicion of alcohol use: no Suspicion of drug use: no Associated symptoms: no vomiting Patient History: Past Medical History: Diagnosis Date Alzheimer's disease [...] Laterality Date SHOULDER SURGERY L shoulder surgery Family History Problem Relation Age of Onset [...] on file Alcohol Use: Not on file Review of Systems Unable to perform ROS: Dementia Constitutional: Negative for fever. HENT: Negative for congestion. Respiratory: Negative for chest tightness. Gastrointestinal: Negative for vomiting. ED Triage Vitals [07/22/24 0022] Temp Pulse Resp BP SpO2 36.9 ??C (98.4 ??F) 97 18 123/92 99 % Temp src Heart Rate Source Patient Position BP Location FiO2 (%) Tympanic -- -- -- -- Height Height Method Weight Weight Method 1.676 m (5' 5.98 ) Stated 72.1 kg (158 lb 15.2 oz) -- Physical Exam Vitals and nursing note reviewed. Constitutional: Appearance: Normal appearance. Comments: tremors HENT: Head: Normocephalic and atraumatic. Comments: No contusions noted to head Right Ear: External ear normal. Left Ear: External ear normal. Nose: Nose normal. Mouth/Throat: Mouth: Mucous membranes are moist. Eyes: Extraocular Movements: Extraocular movements intact. Pupils: Pupils are equal, round, and reactive to light. Neck: Comments: No c/t/l spine tender to palpation, no step offs. Cardiovascular: Rate and Rhythm: Normal rate and regular rhythm. Pulmonary: Effort: Pulmonary effort is normal. Breath sounds: Normal breath sounds. Abdominal: General: Abdomen is flat. There is no distension. Palpations: Abdomen is soft. Tenderness: There is no abdominal tenderness. Musculoskeletal: General: No swelling or tenderness. Normal range of motion. Cervical back: Normal range of motion and neck supple. Skin: General: Skin is warm and dry. Capillary Refill: Capillary refill takes less than 2 seconds. Neurological: General: No focal deficit present. Mental Status: He is alert. Cranial Nerves: No cranial nerve deficit. Sensory: No sensory deficit. Comments: Alert Procedures Labs Reviewed COMPREHENSIVE METABOLIC PANEL - Abnormal Result Value Sodium 134 (*) Potassium, pl 4.1 Chloride 100 CO2 21 (*) Anion gap 13 BUN 13 Creatinine 0.79 (*) Glucose 116 Calcium 9.6 Bilirubin, total 1.1 Protein, pl 7.4 Albumin 4.5 Alk phos 53 ALT 18 AST 41 URINALYSIS AND REFLEX TO MICROSCOPIC AND CULTURE CBC WITH AUTO DIFFERENTIAL WBC 7.8 Hgb 14.5 Hct 40.8 Plt 181 MPV 9.3 RBC 4.44 MCV 91.9 MCH 32.7 MCHC 35.5 RDW CV 12.1 RDW SD 40.6 NRBC abs 0.00 DIFFERENTIAL AUTO Neutrophil abs 5.6 Imm gran abs 0.0 Lymphocyte abs 1.3 Monocyte abs 0.8 Eosinophil abs 0.1 Basophil abs 0.0 Neutrophil pct 71.8 Imm gran pct 0.3 Lymphocyte pct 16.2 Monocyte pct 10.4 Eosinophil pct 1.0 Basophil pct 0.3 EGFR eGFR >90 CT Head WO Contrast Final Result BP 106/69 Pulse 74 Temp 36.9 ??C (98.4 ??F) (Tympanic) Resp 18 Ht 167.6 cm (5' 5.98 ) Wt 72.1 kg (158 lb 15.2 oz) SpO2 95% BMI 25.67 kg/m?? MDM Number of Diagnoses or Management Options Closed head injury, initial encounter Diagnosis management comments: Patient will be evaluated for head injury, electrolyte abnormality, infection Amount and/or Complexity of Data Reviewed Clinical lab tests: ordered and reviewed (CBC and CMP within normal limits) Tests in the radiology section of CPT??: ordered and reviewed (CT head negative) Risk of Complications, Morbidity, and/or Mortality Presenting problems: moderate Diagnostic procedures: moderate Management options: moderate General comments: 63-year-old male presenting with head injury at [facility] unit, unwitnessed. Per , patient has shake her than usual. Patient has a history of dementia due to alcoholism. He did have a head bleed in the past as well as heat stroke. Head CT does not show any acute changes. Labs are within normal limits. Patient can be safely discharged back to [facility] unit. 6:53 AM Rechecked the patient- The patient is resting comfortably and feeling better. I discussed the results of the diagnostic studies, my clinical impression, and the plan for further treatment with the patient. The patient agrees with the plan and discharge at this time, all questions addressed. The patient is medically stable for discharge at this time. I have given the patient instructions regarding his diagnosis, expectations, follow up, and return precautions. I explained to the patient that emergent conditions may arise and to return to the ER for new, worsening, or any persistent conditions. I've explained the importance of following up with h is/her Primary Care Physician- (or the referral physician listed below) as instructed. The patient verbalized understanding of the discharge instructions. New medications: New Prescriptions No medications on file I have advised the patient to follow up with the information as noted below Contact Information for Follow-ups Ganesh Prince MD Specialty: Internal Medicine [address] [place] [address] Next Steps: Call in 1 week(s) Instructions: as needed Disposition: Discharged Diagnosis: Closed head injury, initial encounter Yoanna Ugarte MD 07/22/24 0659 ASSORTER * Harinder James RN - 07/22/2024 12:19 AM CST Pt brought to ED by s/p fall at [facility] facility states pt hit his head no loc pt resident [facility] ASSORTER documented in this encounter Plan of Treatment Not on file documented as of this encounter Procedures Procedure Name Priority Date/Time Associated Diagnosis Comments URINALYSIS AND REFLEX TO MICROSCOPIC AND CULTURE STAT 07/22/2024 7:[address] HEAD WO CONTRAST ED 07/22/2024 5 :47 AM IRON ASSORTER EGFR STAT 07/22/2024 12:43 AM IRON ASSORTER DIFFERENTIAL AUTO STAT 07/22/2024 12: 43 AM IRON ASSORTER CBC WITH AUTO DIFFERENTIAL STAT 07/22/2024 12:43 AM IRON ASSORTER COMPREHENSIVE METABOLIC PANEL STAT 07/22/2024 12:43 AM IRON ASSORTER documented in this encounter Results * Urinalysis reflex to microscopic and culture Urine (07/22/2024 7:21 AM IRON ASSORTER) Color, ur Yellow Yellow Clarity, ur Clear [...] tendency for uric acid stone formation. Source: [facility] [employer] Current Interpretive Data was last revised on [...] for microscopic UA and culture not met. [facility] ([facility]) Urine 07/22/2024 7:21 AM IRON ASSORTER 07/22/2024 7:23 AM IRON ASSORTER us [facility] MICROBIOLOGY - GENERAL ORDE HUNTER Final Result [facility] ([place]) [address] [facility] Department [place] [address] * CT Head WO Contrast (07/22/2024 5:47 AM IRON ASSORTER) Anatomical Region Laterality Modality Head and Neck N/A Computed Tomogra phy 07/22/2024 6:37 AM IRON ASSORTER Narrative 07/22/2024 6:39 AM IRON ASSORTER EXAM DESCRIPTION: ?? CT HEAD WO CONTRAST [...] AM T: ??07/22/2024 6:39 AM Report ID: [id number] Reading Location: ??[id number] Procedure Note Mirta Bell MD - 07/22/2024 [...] by Mirta Bell M.D. SN: Report ID: [id number] Reading Location: [place] [address] Yoanna Ugarte MD IMG CT PROCEDURES Final Result * eGFR (07/22/2024 12:43 AM IRON ASSORTER) eGFR >90 >=60 mL/min/1. 73 m2 Comment: [...] reviewed 2021. Blood 07/22/2024 12:4 3 AM IRON ASSORTER 07/22/2024 12:46 AM IRON ASSORTER us [facility] BLOOD ORDERABLES Final Resu lt [facility]ON COUNT INCLUDES THE [facility] ([place]) [address] [facility] Department [place] [address] * Differential, auto (07/22/2024 12:43 AM IRON ASSORTER) Neutrophil abs 5.6 1.5 - 6.5 K/cumm Imm gran abs 0.0 0.0 - 0.1 K/cumm [facility] ([place]) Lymphocyte abs 1.3 0.8 - 3.3 K/cumm [facility] ([place]) Monocyte abs 0.8 0.2 - 0.8 K/cumm [facility] ([place]) Eosinophil abs 0.1 0.0 - 0.5 K/cumm [facility] ([place]) Basophil abs 0.0 0.0 - 0.1 K/cumm [facility] ([place]) Neutrophil pct 71.8 % [facility] ([place]) Comment: Interpretive Data Percent cell count reference [...] on 2017. Blood 07/22/2024 12:4 3 AM IRON ASSORTER 07/22/2024 12:46 AM IRON ASSORTER us Saadia [facility]LE[facility] BLOOD ORDERABLES Final Resu lt [facility] ([place]) [address] [facility] Department [place] [address] * (ABNORMAL) Comprehensive metabolic panel (07/22/2024 12:43 AM IRON ASSORTER) Sodium 134(L) 135 - 145 mmol/L Potassium, [...] classification and Diagnosis of Diabetes Diabetes Care 2021; 46: S19-S40. Current interpretive data was last [...] [facility] ([facility]) Blood 07/22/2024 12:4 3 AM IRON ASSORTER 07/22/2024 12:46 AM IRON ASSORTER us Saad[facility]STER[facility] BLOOD ORDERABLES Final Resu lt [facility] ([place]) 1 [facility] Department [place] [address] * CBC with auto differential (07/22/2024 12:43 AM IRON ASSORTER) WBC 7.8 3.8 - 9.9 K/cumm Hgb [...] NRBC abs 0.00 0.00 - 0.01 K/cumm [facility] ([facility]) Blood 07/22/2024 12:4 3 AM IRON ASSORTER 07/22/2024 12:46 AM IRON ASSORTER us Saadia BALLESTEROS LAB BLOOD ORDERABLES Final Resu lt [facility] ([place]) [address] [facility] [place] [address] documented in this encounter Visit Diagnoses Diagnosis Closed head injury, initial encounter- Primary documented in this encounter Care Teams Branding Machine Tender Relationship Specialty Start Date End Date Ganesh Prince MD PCP - General 11/28/17 documented as of this encounter
--- OUTSIDE RECORDS SUMMARY | 2024-08-13 04:56 | XMS_ITS | Clinical Summary ---
Author Organization [facility] Address [address] [place] [address] Care Team Providers Care Pipe Insulator Name Role Phone Ganesh Prince MD Primary Care Provider [phone] Allergies No known active allergies Medications escitalopram [...] Consider placement Hospice/ palliative evaluation met with Adjunct Art History Instructor Vero Moraes for resources and support Hearing [...] summer. Assessment & Plan (07/21/2019 5:31 PM SLEEP MEDICINE PHYSICIAN): Continue donepezil 10mg daily. Increase escitalopram to [...] 01/23/2024 JEANETTE (generalized anxiety disorder) 03/05/2017 01/23/2024 Encounters Date Type Department Care Team Description 07/22/2024 3:42 AM SLEEP MEDICINE PHYSICIAN - 07/22/2024 7:51 AM [facility] Emergency [facility] Emergency Department [address] [place] [address] Yoanna Ugarte MD Closed head injury, initial encounter (Primary Dx) Discharge Disposition: Discharge to home or self care from Last 3 Months Immunizations Name Administration Dates Next Due Influenza, Quadrivalent, Spl it, Preservative Free, Intradermal 05/02/2016,07/05/2015 Influenza, Split 06/02/2013, 2,05/23/2011,2009 Influenza, Trivalent, Recomb inant, Egg Free, Preservative Free, Antibiotic Free, IM (FLUBLOK) 06/16/2014 Tdap 04/20/2008 Surgical History Surgery Date Site/Laterality Comments SHOULDER SURGERY L shoulder surgery Medical History Medical History Date Comments Gout gout Hyperlipidemia Hyperlipidemia Hx Other Medical 1985 +ppd inh Psoriasis psoriasis Hx Other Medical 1985 aseptic meningi tis Hx Other Medical diastasis recti Hx Other Medical panic Hx Other Medical ER visit for la ceration February 2009 Hx Other Medical ER visit for le ft wrist sprain-October 2009 Hx Other Medical rotator cuff Anxiety Alzheimer's disease (HCC) Vertigo Family History Medical History Relation Name Comments Other Brother 2 Heart disease C ABG age 37; Alzheimer's disease Father Dementia Father Dementia; Heart disease Father Heart disease; Diabetes Mother Diabetes mellit us; Heart disease Mother Heart disease; Alzheimer's disease Mother's Sister Cystic fibrosis Other 2 Family histo ry of Cystic fibrosis; sibligns: 2 ages 1 1/2, 3 and 21 Diabetes Other 3 Family history of Diabetes mellitus; Heart disease Other 4 Family history of Heart disease; Gout Other 5 Family history of Gout; Cardiomyopathy Son 2 Cardiomyopath y; Cause of : Cardiomyopathy Relation Name Status Comments Brother 1 Alive Brother 2 Father Mother Mother's Sister Other 1 Alive Other 2 Other 3 Other 4 Other 5 Son 1 Son 2 Social History Tobacco Use Types Packs/Day Years Used Date Smoking Tobacco: Former Tobacco Cessation:Counseling Given: Not Answered Alcohol Use Standard Drinks/Week Comments Yes 0 (1 standard drink = 0.6 oz pur e alcohol) Sex and Gender Information Value Date Recorded Sex Assigned at Not on file Legal Sex Male 8:13 AM SLEEP MEDICINE PHYSICIAN Gender Identity Not on file Sexual Orientation Not on file Obstetrics History Last Filed Vital Signs Vital Sign Reading Time Taken Comments Blood Pressure 106/69 07/22/2024 6:00 AM SLEEP MEDICINE PHYSICIAN Pulse 74 07/22/2024 6:00 AM SLEEP MEDICINE PHYSICIAN Temperature 36.9 ??C (98.4 ??F) 07/22/2024 1 2:22 AM SLEEP MEDICINE PHYSICIAN Respiratory Rate 18 07/22/2024 5:00 AM SLEEP MEDICINE PHYSICIAN Oxygen Saturation 95% 07/22/2024 6:00 AM SLEEP MEDICINE PHYSICIAN Inhaled Oxygen Concentration - - Weight 72.1 kg (158 lb 15.2 oz) 024 12:22 AM SLEEP MEDICINE PHYSICIAN Height 167.6 cm (5' 5.98 ) 07/22/2024 1 2:22 AM SLEEP MEDICINE PHYSICIAN Body Mass Index 25.67 07/22/2024 12:22 AM SLEEP MEDICINE PHYSICIAN Plan of Treatment Health Maintenance Due Date Last Done Comments Fall Risk Assessment 1960 Hepatitis C Screening 1960 Hepatitis B Screening 1976 Zoster Vaccine (1 of 2) 2008 Colon Cancer Screening-Colonoscopy 01/02/2017 01/03/2012, 01/03/2012 Depression Screening 03/05/2018 03/05/2017, 02/16/20 Prostate Cancer Screening-PSA 03/14/2018 03/14/2016 DTaP/Tdap/Td Vaccine (2 - Td or Tdap) 04/20/2018 04/20/2008 Abdominal Aortic Aneurysm (A AA) Screen 2023 12/07/2022, 01/28/2017 Pneumococcal vaccine 65+ (1 of 1 - PCV) 2023 Well Visit 65+ 2023 Colon Cancer Screening-CT Colonography Discontinued 01/03/2012, 01/03/2012 Colon Cancer Screening-DNA Stool Discontinued 01/03/20 12, 01/03/2012 Colon Cancer Screening-FIT Discontinued 01/03/2012, Colon Cancer Screening-Sigmoidoscopy Discontinued 01/03/2012, 01/03/2012 Influenza Vaccine Completed 06/05/2024, , 05/02/2016, Additional history exists Procedures Procedure Name Priority Date/Time Associated Diagnosis Comments URINALYSIS AND REFLEX TO MICROSCOPIC AND CULTURE STAT 07/22/2024 7:[address]IAN [address] HEAD WO CONTRAST ED 07/22/2024 5 :47 AM SLEEP MEDICINE PHYSICIAN EGFR STAT 07/22/2024 12:43 AM SLEEP MEDICINE PHYSICIAN DIFFERENTIAL AUTO STAT 07/22/2024 12: 43 AM SLEEP MEDICINE PHYSICIAN COMPREHENSIVE METABOLIC PANEL STAT 07/22/2024 12:43 AM SLEEP MEDICINE PHYSICIAN CBC WITH AUTO DIFFERENTIAL STAT 07/22/2024 12:[address] ABDOMEN PELVIS W CONTRAST Schedule Routine, Read Routine (OP Routine) 12/07/2022 3:14 PM CDT Abdominal pain, unspecified abdominal location PSA SCREENING Routine 03/14/2016 COLONOSCOPY Routine 01/03/2012 from Last 3 Months or Most Recently Relevant to Health Maintenance Results * Urinalysis reflex to microscopic and culture Urine (07/22/2024 7:21 AM SLEEP MEDICINE PHYSICIAN) Color, ur Yellow Yellow Clarity, ur Clear [...] tendency for uric acid stone formation. Source: [employer] Current Interpretive Data was last revised on [...] [facility] ([facility]) Urine 07/22/2024 7:21 AM SLEEP MEDICINE PHYSICIAN 07/22/2024 7:23 AM SLEEP MEDICINE PHYSICIAN [facility]LESTER[facility] MICROBIOLOGY - GENERAL ORDE HUNTER Final Result [facility] [address] [facility] [place] [address] * CT Head WO Contrast (07/22/2024 5:47 AM SLEEP MEDICINE PHYSICIAN) Anatomical Region Laterality Modality Head and Neck N/A Computed Tomogra phy 07/22/2024 6:37 AM SLEEP MEDICINE PHYSICIAN Narrative 07/22/2024 6:39 AM SLEEP MEDICINE PHYSICIAN EXAM DESCRIPTION: ?? CT HEAD WO CONTRAST [...] Electronically signed by ??Mirta Bell M.D. SN: SN D: ??07/22/2024 6:39 AM T: ??07/22/2024 6:39 AM Report ID: [id number] Reading Location: ??[id number] Procedure Note Mirta Bell MD - 07/22/2024 [...] by Mirta Bell M.D. SN: Report ID: [id number] Reading Location: [id number] Yoanna Ugarte MD IMG CT PROCEDURES Final Result * eGFR (07/22/2024 12:43 AM SLEEP MEDICINE PHYSICIAN) eGFR >90 >=60 mL/min/1. 73 m2 Comment: [...] reviewed 2021. Blood 07/22/2024 12:4 3 AM SLEEP MEDICINE PHYSICIAN 07/22/2024 12:46 AM SLEEP MEDICINE PHYSICIAN us Sa[facility]LESTER[facility] LAB BLOOD ORDERABLES Final Resu lt [facility] [address] [facility] [place] [address] * Differential, auto (07/22/2024 12:43 AM SLEEP MEDICINE PHYSICIAN) Neutrophil abs 5.6 1.5 - 6.5 K/cumm Imm gran abs 0.0 0.0 - 0.1 K/cumm [facility] ([facility]) Lymphocyte abs 1.3 0.8 - 3.3 K/cumm [facility] ([facility]) Monocyte abs 0.8 0.2 - [...] on 2017. Blood 07/22/2024 12:4 3 AM SLEEP MEDICINE PHYSICIAN 07/22/2024 12:46 AM SLEEP MEDICINE PHYSICIAN us Saadia BALLESTEROS LAB BLOOD ORDERABLES Final Resu lt [facility] [address] [facility] [place] [address] * CBC with auto differential (07/22/2024 12:43 AM SLEEP MEDICINE PHYSICIAN) WBC 7.8 3.8 - 9.9 K/cumm Hgb [...] [facility] ([facility]) Blood 07/22/2024 12:4 3 AM SLEEP MEDICINE PHYSICIAN 07/22/2024 12:46 AM SLEEP MEDICINE PHYSICIAN us Saadia BALLESTEROS LAB BLOOD ORDERABLES Final Resu lt [facility] ([place]) [address] [facility] [place] [address] * (ABNORMAL) Comprehensive metabolic panel (07/22/2024 12:43 AM SLEEP MEDICINE PHYSICIAN) Sodium 134(L) 135 - 145 mmol/L Potassium, [...] [facility] ([facility]) Blood 07/22/2024 12:4 3 AM SLEEP MEDICINE PHYSICIAN 07/22/2024 12:46 AM SLEEP MEDICINE PHYSICIAN us Saadia BALLESTEROS LAB BLOOD ORDERABLES Final Resu lt [facility] ([place]) [address] [facility] Department of [facility] [place], [place] [id number] * CT Abdomen Pelvis W Contrast (12/07/2022 [...] seen within the prostate. ??Otherwise, unremarkable. VASCULATURE: Rcwh-rg-cbhcrksy aortoiliac atherosclerosis. ?? No abdominal aortic aneurysm. [...] PM T: ??12/07/2022 11:42 PM Report ID: [id number] Reading Location: ??[id number] Procedure Note Ganesh Hallory, DO - 12/07/2022 EXAM DESCRIPTION: CT ABDOMEN [...] seen within the prostate. Otherwise, unremarkable. VASCULATURE: Uscq-ce-ylqeyrti aortoiliac atherosclerosis. No abdominal aortic aneurysm. MUSCULOSKELETAL: No acute abnormality. Mild to moderate degenerative changes of the spine and bilateral hip joints. OTHER: No other abnormality. IMPRESSION: 1. No acute intra-abdominal/pelvic abnormality. 2. Additional findings as detailed. THIS IS AN ELECTRONICALLY VERIFIED FINAL REPORT 12/07/2022 11:42 PM - Electronically signed by Ganesh Hall M.D. MF: [id number] Report ID: [id number] Reading Location: [place] [address] Ganesh Prince MD IMG CT PROCEDURES Final Resu lt * PSA SCREENING (03/14/2016) PSA Normal Historical Provider HEALTH MAINTENANCE Final Result * COLONOSCOPY (01/03/2012) Colonoscopy Abnormal Comment:Diverticulosis Anatomical Region Laterality Modality Other Historical Provider HEALTH MAINTENANCE Final Result from Last 3 Months or Most Recently Relevant to Health Maintenance Insurance [employer] MEDIC[employer] PPO MEDICARE [facility] INS [facility] [employer] MEDICARE PPO MEDICARE Care Teams Pipe Insulator Relationship Specialty Start Date End Date Ganesh Prince MD PCP - General 11/28/17
--- OUTSIDE RECORDS SUMMARY | 2024-08-13 04:56 | XMS_ITS | Encounter Summary ---
Author Organization [facility] Address [address] [place] [address] Phone Care Team Providers Care Supervisor Partial Denture Department Name Role Phone Ganesh Prince MD Primary Care Provider [phone] Reason for Referral * Consultation (Routine) - Closed Specialty Diagnoses / Procedures Referred By Samira yu Referred To Contact Occupational Therapy Diagnoses 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 disturbance (HCC) Karina Joseph NP Phone: tel: fax: [facility] [address] [place] [address] Phone: tel: fax: Referral ID Status Reason Start Date Expiration Date V isits Requested Visits Authorized [id number] Closed Specialty Services Required 07/03/2022 08/02/2023 12 12 Question Answer PTRFR OT Evaluate and Treat Therapy options discussed with patient? Yes Location provided for therapy services is: Patient requested/Patient preferred Please select the performing region: External Order [[id number]] To loc/pos [facility] [[id number]] Comments Please contact his georgiana at [phone] TARY TECHNICIAN Reason for Visit * Reason Comments Follow-up * Consultation (Routine) - Closed Specialty Diagnoses / Procedures Referred By Samira yu Referred To Contact Neurology Diagnoses 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 disturbance (HCC) Ganesh Prince MD Phone: tel: fax: [facility] (All Locations) Referral ID Status Reason Start Date Expiration Date V isits Requested Visits Authorized [id number] Closed Specialty Services Required 04/03/2022 05/03/2023 1 1 Encounter Details Date Type Department Care Team (Late st Contact Info) Description 07/03/2022 1:00 PM MILITARY TECHNICIAN Office Visit [address] 6th [address] [place] [address] Karina Joseph NP [address] [facility] [id number] [place] [address] 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 disturbance (HCC) Social History Tobacco Use Types Packs/Day Years Used Date Smoking Tobacco: Former Tobacco Cessation:Counseling Given: Not Answered Alcohol Use Standard Drinks/Week Comments Yes 0 (1 standard drink = 0.6 oz pur e alcohol) Sex and Gender Information Value Date Recorded Sex Assigned at Not on file Legal Sex Male 8:13 AM MILITARY TECHNICIAN Gender Identity Not on file Sexual Orientation Not on file documented as of this encounter Last Filed Vital Signs Vital Sign Reading Time Taken Comments Blood Pressure 121/76 07/03/2022 1:09 PM MILITARY TECHNICIAN Pulse 104 07/03/2022 1:09 PM MILITARY TECHNICIAN Temperature 36.5 ??C (97.7 ??F) 07/03/2022 1:09 PM CS T Respiratory Rate - - Oxygen Saturation 97% 07/03/2022 1:09 PM MILITARY TECHNICIAN Inhaled Oxygen Concentration - - Weight 84.1 kg (185 lb 8 oz) 07/03/2022 1:09 PM MILITARY TECHNICIAN Height 167.6 cm (5' 6 ) 07/03/2022 1:09 PM MILITARY TECHNICIAN Body Mass Index 29.94 07/03/2022 1:09 PM MILITARY TECHNICIAN documented in this encounter Patient Instructions * Patient Instructions* Karina Joseph NP - 07/03/2022 1:00 PM MILITARY TECHNICIAN [facility] [place] TODAY'S VISIT Provider: AIMEE Last (Nurse Practitioner) Thank you for [facility] the [facility] today. We appreciate this opportunity to participate in your care. We have reviewed the concerns about your memory and thinking. Memory and thinking test scores today: MMSE (Mini Mental Status Exam): A perfect score on this test is 30. A score of of between 27-30 isconsidered normal. A score of 24-26 is considered [...] memory haschanged. Medications: We recommend you take Melatonin to help with sleep, the maximum dose is 10 mg daily, a usually starting dose is 1-3 mg daily before bed, you should take this medication at least 1 hour before bed. Additional Recommendations: Nutrition: We recommend that you [...] Program, from The Alzheimer's Association, please call [phone], or you can register online [email or web address]. 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 Legal: No legal concerns were discussed today. RESOURCES FOR ADDITIONAL INFORMATION AND SUPPORT Opportunities to participate in research can be found at: trialmatch.[employer].org Access TrialWooboard.com online. For additional assistance, email TrialMatch@[employer].org or call 003.697.4686 (press 1 for clinical trials). ClinicalTrials.gov is a resource provided by the U.S. National Library of Medicine. You can look upclinical trials (research opportunities) online At clinicaltrials.gov Alzheimer's Association [facility] Chapter: ; (toll free); http://www.alz.org, The Alzheimer's Association 05/03 Helpline provides reliable information and support to all those who need assistance. Call toll-free anytime day or night at . Caregiver Guide: tips for caregivers of people with Alzheimer's dementia, www.smiley.nih.gov/Alzheimers /Publication/Cqolln-dxerop-lyuywuiwju-disease/about-guide [facility], [address] [place]. [address], , Occupational Therapists who offers caregiver training, family support, and in home safety assessments at no cost. Memorycarehs.org [facility] Agency on Aging (serving [facility]) http://[facility].[place].org/government/hslaaa.html [facility] Agency on Aging (serving [facility] http://www.mid-eastaaa.org If you need to reach our office, please call our nurse at [phone], option 4, leave a message, this voicemail is checked several times per day. If you need to contact our social media manager: Alan Be or Jose Angel Arriola, from the Alzheimer's Association, please call [phone] No future appointments. TARY TECHNICIAN documented in this encounter Progress Notes * Karina Joseph NP - 07/03/2022 1:00 PM CST [facility] OFFICE VISIT Karina MCKEONP-BC (Nurse Practitioner) [facility] Department of Neurology Patient Name: GANESH MACIEL Medical Record Number (MRN): [id number] Date of (): 1960 Encounter Date: 07/03/2022 Referring MD: Dr. Ganesh Prince MD Primary Care Practitioner: Ganesh Dejesus MD CHIEF COMPLAINT Memory and thinking difficulty Collateral Source: [place] , serves as the collateral source/sources (CS/CS's). The CS typically sees the patient daily. HISTORY OF PRESENT ILLNESS Mr. Maciel is a 61 y.o. gentleman who comes to the [facility] today for further evaluation of memory and thinking problems. He is in generally fair health. Dementia History: Followed by Dr. Moore and [facility] with diagnosis of early onset Alzheimer Disease, [...] slowing. MMSE: 16, CDR: 1, SB: 8 TODAY'S VISIT: There have not been hospitalizations, or major medical illnesses since the last visit. Medications were reviewed, there were were no changes. Overall, the CS thinks memory and thinking problems have gotten worse, over the past 6-12 months. About every two weeks he will feel dizzy and anxious and doesn't know why. After about five minutesthis can pass. He is not wanting to take a shower. He gets very angry with his . He is startingto sleep in his clothes and argue about sleeping in his clothes. His does not feel comfortableleaving him home alone. They moved 6 weeks ago. They are closer to their son now. He will only brush his teeth when his tells him too. He does get angry but he never gets physically. No hallucinations, delusions, paranoia. He does act out his dreams and will talk in his sleep. He recognizes his and his son. He forgot about their grand kids. He recognizes them in person. He didn't remember a friend of lidya by name, but did know her face. He will take his medications. He will even remind his about the meds sometimes. He would not be able to look at the calendar. He is going to the wrong car doors to get in. He cant figure out where he is supposed to go. There was more confusion following their move. He can get confused which room is which. He no longer knows left and right.He has gotten better with the rooms after being there a few weeks. At bedtime he will follow his around the room. She will have to remind him to use the bathroom. He is more confused over all. He is misplacing items. He goes to work with his . He enjoys the drive to work. He will take a walk to a convenience store a block away. He visits with the people who come in. He wont play cards. He cant play farkle on his own. He wont cook any longer. He will ask where water is that is on the fridge. She ties to let him do what he can. He is never hungry. He only eats if his eats. The memory and thinking problems are consistent and have been slowly progressive. Caregiver State: moderate stress at this time. We went over resources and supports for caregivers, discussed availability of our Hand Cutter from the Alzheimer's Association ACTIVE PROBLEMS Patient [...] No Known Allergies MEDICATIONS Current Outpatient Medications: atorvastatin (LIPITOR) 10 mg tablet, Take 10 mg by mouth daily., Disp: , Rfl: 3 donepeziL (ARICEPT) 10 mg tablet, Take 1 tablet (10 mg total) by mouth daily after breakfast, Disp:90 tablet, Rfl: 3 escitalopram (LEXAPRO) 20 mg tablet, TAKE 1 TABLET (20 MG TOTAL) BY MOUTH DAILY, Disp: 90 tablet, Rfl: 3 memantine (NAMENDA) 10 mg tablet, Take 1 tablet (10 mg total) by mouth daily, Disp: 90 tablet, Rfl:3 FAMILY & SOCIAL HISTORY Family History Problem [...] for memory loss. The patient is nervous/anxious. All other systems reviewed and are negative. Medical Records Review: I reviewed [facility] notes and prior Neuropsychometric testing scores. [facility] Neurobehavioral Status Exam Results 09/05/2018 07/21/2019 12/27/2020 12/27/2021 07/03/2022 Repository ICF signed? Yes No No Yes No Verbal Fluency Total Score 14 14 12 (No Data) (No Data) Zalma Naming (15 item) Total Score 14 15 [...] Results Component Value Date TSH 2.38 01/28/2017 A2PTCRV 5.1 05/19/2013 Lab Results Component Value Date [...] Date VITB12 389 02/21/2017 PHYSICAL EXAMINATION BP 121/76 (BP Location: Left arm, Patient Position: Sitting) Pulse 104 Temp 36.5 ??C (97.7 ??F) Ht 167.6 cm (5' 6 ) Wt 84.1 kg (185 lb 8 oz) SpO2 97% BMI 29.94 kg/m?? General Assessment There were no orthostatic [...] Sensation was intact to light touch. Coordination Reaeot-nkny-caxfuv testing was normal. Reflexes Reflexes were symmetric at the biceps, brachioradialis and knees. Gait Gait was slow and decreased arm swing He was mild word finding difficulty fluent throughout the interview and examination. NEUROBEHAVIORAL TESTING REPORT On formal neurobehavioral testing, which took from [id number] , scores were in the normal to mildly impaired range on tests of semantic memory (Zalma Naming, verbal fluency). Scores were in the mildly impaired range on tests of episodic memory (logical memory). On more global tests, MMSE was 14. Episodic recall was 0/5 and 3/3. These findings are consistent with moderately impaired. [...] reviewed in the psychometric package- He endorsed 1 items on the GDS, felt tired all the time . Neurobehavioral test results: [facility] Neurobehavioral Status Exam Results 09/05/2018 07/21/2019 12/27/2020 12/27/2021 07/03/2022 Repository ICF signed? Yes No No Yes No Verbal Fluency Total Score 14 14 12 (No Data) (No Data) Zalma Naming (15 item) Total Score 14 15 [...] Data) - (No Data) Clinical Dementia Rating: [facility] CDR/DIAGNOSIS NEW 09/05/2018 07/21/2019 12/27/2020 12/27/2021 07/03/2022 Repository ICF signed? Yes No No Yes No Memory 1 2 2 1 2 Orientation 1 1 2 1 2 Judgement & Problem Solving 1 2 1 2 2 Community Affairs 0 1 2 1 1 Home & Hobbies 1 2 2 2 2 Personal Care 1 1 1 1 1 Global Score 1 1 2 1 2 Sum of Boxes 5 9 10 8 10 Year of Onset 2013 2013 2013 - - Alert for Potential Transmissible Disorders No No No - - AD Dementia Alzheimer Disease Dementia Alzheimer Disease Dementia Alzheimer Disease Dementia - - Mood disorder (any type) Active - Active - - Alcoholism - Remote - - - ASSESSMENT Mr. Maciel is a 61 y.o. gentleman with a history of slowly progressive cognitive changes, consistent with a clinical diagnosis of Alzheimer's dementia. His cognitive testing has declined as well as his activites of daily living. He is tolerating Donepezil/Aricept and Memantine/Namenda. He can be more irritable. He did move 6 weeks ago and had difficulty coming up with the address or town he lived in. His would benefit from more resources and support. I will send a referral to [facility] and Medical Social Work. PLAN OF CARE: (Shared with CS, CS's) Referral made to community resources (Alzheimer's Association (support group, educational programs,caregiver health and support, online resources, safety, future planning, Trial Match for research opportunities, caregiver training, brain health, home safety, help line.) 1. 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 disturbance (HCC) Orders Placed This Encounter Ambulatory referral order to Occupational Therapy - Please contact his georgiana at [phone] Referral Priority: Routine Referral Type: Consultation Referral Reason: Specialty Services Required Referral Location: [facility] Requested Specialty: Occupational Therapy Number of Visits Requested: 12 Patient Instructions [facility] TODAY'S VISIT [...] memory haschanged. Medications: We recommend you take Melatonin to help with sleep, the maximum dose is 10 mg daily, a usually starting dose is 1-3 mg daily before bed, you should take this medication at least 1 hour before bed. Additional Recommendations: Nutrition: We recommend that you [...] Program, from The Alzheimer's Association, please call [phone], or you can register online [email or web address]. 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 Legal: No legal concerns were discussed today. RESOURCES FOR ADDITIONAL INFORMATION AND SUPPORT Opportunities to participate in research can be found at: trialmatch.[employer].org Access TrialEcoviatetch online. For additional assistance, email TrialMatch@[employer].org or call 134.307.3055 (press 1 for clinical trials). ClinicalTrials.gov is a resource provided by the U.S. National Library of Medicine. You can look upclinical trials (research opportunities) online At clinicaltrials.gov Alzheimer's Association [facility] Chapter: ; (toll free); http://www.alz.org, The Alzheimer's Association 05/03 Helpline provides reliable information and support to all those who need assistance. Call toll-free anytime day or night at . Caregiver Guide: tips for caregivers of people with Alzheimer's dementia, www.smiley.nih.gov/Alzheimers /Publication/Pxmbdo-fpkehe-xxwodzxjxj-disease/about-guide [facility], [address] [place]. [address], , Occupational Therapists who offers caregiver training, family support, and in home safety assessments at no cost. Memory[facility]hs.org [facility] Agency on Aging ([facility]) http://[facility].[place].[facility]/government/hslaaa.html [facility] Agency on Aging (serving [place], [place], [place] and [facility] [address] http://www.[facility].org If you need to reach our office, please call our nurse at [phone], option 4, leave a message, this voicemail is checked several times per day. If you need to contact our social media manager: Alan Be or Jose Angel Arriola, from the Alzheimer's Association, please call [phone] No future appointments. I spent 45 minutes,face [...] reflect the currentclinical condition. Karina Joseph MSN, [employer] [facility] [address], [address] [place] [address] Cosigned by Martita Love MD PhD at 07/07/2022 4:50 PM MILITARY TECHNICIAN TARY TECHNICIAN TARY TECHNICIAN documented in this encounter Plan of Treatment Scheduled Referrals Name Type Priority Associated Diagnoses Orde r Schedule Ambulatory referral order to Occupational Therapy - Outpatient Referral Routine 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 disturbance Ordered: 07/03/2022 documented as of this encounter Visit Diagnoses Diagnosis 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 disturbance (HCC) documented in this encounter Discontinued Medications Medication Sig Discontinue Reason Start Date End Da te memantine (Namenda Titration Fernando) tablet pack Use as directed for first month 12/27/2021 07/03/2022 documented as of this encounter Orders Outpatient Referral Count Last Ordered Date Fir st Ordered Date AMB REFERRAL TO NEUROLOGY 1 07/03/2022 documented in this encounter Care Teams Supervisor Partial Denture Department Relationship Specialty Start Date End Date Ganesh Prince MD PCP - General 11/28/17 documented as of this encounter
--- OUTSIDE RECORDS SUMMARY | 2024-08-13 04:56 | XMS_ITS | Encounter Summary ---
Author Organization [facility] Address [address] [place] [address] Care Team Providers Care Hog Ringer Name Role Phone Tommie Lu MD Primary Care Provider + Encounter Details Date Type Department Care Team (Late st Contact Info) Description 03/27/2017 6:58 PM CDT - 03/27/2017 11:59 PM CDT Hospital Encounter [facility] OP INTERIM Tommie Lu MD [address] [place] [address] Discharge Disposition: Discharge to home or self care Social History Tobacco Use Types Packs/Day Years Used Date Smoking Tobacco: Former Alcohol Use Standard Drinks/Week Comments Yes 0 (1 standard drink = 0.6 oz pur e alcohol) Sex and Gender Information Value Date Recorded Sex Assigned at Not on file Legal Sex Male 8:13 AM MAINTENANCE SPECIALIST Gender Identity Not on file Sexual [...] Procedure Name Priority Date/Time Associated Diagnosis Comments PSG (SIMPLE) Routine 03/27/2017 5:00 AM CDT documented in this encounter Results * PSG (SIMPLE) (03/27/2017 5:00 AM CDT) 03/27/2017 5:00 AM CDT Narrative [facility] - 03/27/2017 5:00 AM CDT ?SLEEP DISORDER REPORT Patient: ??GAGE MACIEL ? Service Date: 03/27/2017 Account: ??[id number] ? Room No: : ?1960 ? Patient Type: ?ANC Attend.: ??Tommie Lu M.D. ?Admit Date: ??03/27/2017 Dict.: ?Nabeel Muhammad M.D., D.MKelsey ?Disch. Date: 03/27/2017 ?COMPREHENSIVE POLYSOMNOGRAM REQUESTING PHYSICIAN Dr. Tommie Lu. INDICATIONS FOR STUDY Mr. Maciel is a 56-year-old with chief complaints of snoring, witnessed stoppage of breath while sleeping, unrefreshing sleep, and daytime fatigue. Patient's [place] Sleepiness Score 4. PAST MEDICAL HISTORY Depression/panic attacks. VITALS Age: ??[age] years. ??Height: ??66 inches. ??Weight: ??161 pounds body mass Index: 26.2. PROCEDURE: Patient underwent an overnight polysomnography to include EEG, sleep stage recording, cardiorespiratory, as well as videotaping. DESCRIPTION OF POLYSOMNOGRAPHY The patient's total time in bed was 422.1 minutes. ??Total sleep time was 198 minutes. ??Sleep efficiency was 46.9%. Latency from lights out to stage N1 was 104 minutes, latency stage N2 from sleep onset was 16.5 minutes, latency to stage N3 from sleep onset was 46.5 minutes. ??Sleep stage recording revealed stage awake of 225.5 minutes. ??Stage non-REM comprised 198 minutes with 100% of total sleep time. ??This included stage N1 of 51 minutes (25.8% total sleep time), stage N2 of 133 minutes ( 57.2% total sleep time) and stage N3 of 14 minutes (7.1% total sleep time). Arousal index total of 130 arousals with arousal index of 39.4. ??There were 41 spontaneous arousals. ??The spontaneous arousal index was 12.4. ??The apnea- hypopnea index was 9.7. ??The AHI was 17.1 in supine position and 9.4 in the nonsupine position. ??Six obstructive apneas, and 26 hypopneas were recorded. Baseline oxygen saturation 96.3%. ??Lowest oxygen saturation 91%. ??There were a total of 30 oxygen desaturation episodes. ??Longest oxygen desaturation duration 45.1 seconds. ??Snoring was mild to loud. Limb movement recording revealed 10 periodic limb movements. ??Periodic limb movement index of 3.0, periodic limb arousal index 0.3. ??Average heart rate during wake was 67.0 and during sleep was 69.9. ??The heart rhythm was sinus rhythm with frequent premature ventricular contractions. IMPRESSION The above polysomnography confirms: 1. ??Reduction of sleep efficiency. 2. ??Overall mild obstructive sleep apnea. ??This is moderate in the supine ?position. 3. ??No REM sleep was obtained. 4. ??Mild to loud snoring was noted. 5. ??Treatment options include surgery, positive pressure therapy and dental ?devices. [place] A: ??Obstructive sleep apnea G47.33 [place] B: ??Polysomnography [id number]. Electronically Authenticated and Edited by: Nabeel Muhammad MD On 04/02/2017 02:40 PM CDT Nabeel Muhammad M.D., Shira AR/hermila Job #: ??[id number] DD: ??03/30/2017 13:23 TD: ??03/31/2017 06:44 us Not In File [facility] ORDERABLE S Final Result [facility] documented in this encounter Visit Diagnoses Not on filedocumented in this encounter Care Teams Hog Ringer Relationship Specialty Start Date End Date Tommie Lu MD [address] [place] [address] PCP - General 11/10/16 11/27/17 documented as of this encounter
--- OUTSIDE RECORDS SUMMARY | 2024-08-13 04:56 | XMS_ITS | Encounter Summary ---
Author Organization [facility] Address [address] [place] [address] Phone Care Team Providers Care Restaurant Host Name Role Phone Ganesh Prince MD Primary Care Provider + [phone] Encounter Details Date Type Department Care Team (Late st Contact Info) Description 08/01/2023 Documentation [facility] [address] [place] [address] [address] Floor [address] [place] [address] Pilar Miner, RN Social History Tobacco Use Types Packs/Day Years Used Date Smoking Tobacco: Former Alcohol Use Standard Drinks/Week Comments Yes 0 (1 standard drink = 0.6 oz pur e alcohol) Sex and Gender Information Value Date Recorded Sex Assigned at Not on file Legal Sex Male 8:13 AM MDS MANAGER Gender Identity Not on file Sexual Orientation Not on file documented as of this encounter Progress Notes * Pilar Miner, RN - 08/01/2023 1:49 PM CST It looks like he is currently on 12.5 at night. We can increase to 12.5 twice a day and if not improved after a few days we can increase to a full 25 mg twice daily. Thank you Melissa Sent from [employer] From: Pilar Miner Sent: Monday, July 31, 2023 4:20 PM To: Karina Subject: Medication increase Karina, The Seroquel dose for Ganesh Stephenson 56 is not holding down his agitation/anxiety. He is pacing around the house constantly. Can we increase the dose? Pilar MANAGER documented in this encounter Plan of Treatment Not on file documented as of this encounter Visit Diagnoses Not on filedocumented in this encounter Care Teams Restaurant Host Relationship Specialty Start Date End Date Ganesh Prince MD PCP - General 11/28/17 documented as of this encounter
--- OUTSIDE RECORDS SUMMARY | 2024-08-13 04:56 | XMS_ITS | Encounter Summary ---
Author Organization [facility] Address [address] [place] [address] Phone Care Team Providers Care Outsole Beveler Name Role Phone Ganesh Prince MD Primary Care Provider [phone] Encounter Details Date Type Department Care Team (Late st Contact Info) Description 10/25/[address] Floor [address] [place] [address] Ginny Sheffield Social History Tobacco Use Types Packs/Day Years Used Date Smoking Tobacco: Former Alcohol Use Standard Drinks/Week Comments Yes 0 (1 standard drink = 0.6 oz pur e alcohol) Sex and Gender Information Value Date Recorded Sex Assigned at Not on file Legal Sex Male 8:13 AM ARTISTS' BOOKING REPRESENTATIVE Gender Identity Not on file Sexual Orientation Not on file documented as of this encounter Miscellaneous Notes * Telephone Encounter - Ginny Sheffield - 10/25/2023 11:06 AM CDT Called Mirian to see if she would like to set up a care consultation with Alan Be. I got her on the schedule for 11/21/23 at 10am documented in this encounter Plan of Treatment Not on file documented as of this encounter Visit Diagnoses Not on filedocumented in this encounter Care Teams Outsole Beveler Relationship Specialty Start Date End Date Ganesh Prince MD PCP - General 11/28/17 documented as of this encounter
--- OUTSIDE RECORDS SUMMARY | 2024-08-13 04:56 | XMS_ITS | Encounter Summary ---
Author Organization [facility] Address [address] [place] [address] Phone Care Team Providers Care Spinneret Cleaner Name Role Phone Ganesh Prince MD Primary Care Provider [phone] Reason for Visit * Consultation (Routine) - Closed Specialty Diagnoses / Procedures Referred By Samira t Referred To Contact Neurology Diagnoses 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 disturbance (HCC) Ganesh Prince MD Phone: tel: fax: [facility] (All Locations) Referral ID Status Reason Start Date Expiration Date V isits Requested Visits Authorized [id number] Closed Specialty Services Required 03/19/2020 03/14/2021 12 12 Encounter Details Date Type Department Care Team (Late st Contact Info) Description 03/25/2020 2:30 PM CDT Telemedicine [facility] [address] [place] [address] 6th [address] [place] [id number] Dianne Worthington NP [address] [place] [address] 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 disturbance (CMS/HCC) Social History Tobacco Use Types Packs/Day Years Used Date Smoking Tobacco: Former Alcohol Use Standard Drinks/Week Comments Yes 0 (1 standard drink = 0.6 oz pur e alcohol) Sex and Gender Information Value Date Recorded Sex Assigned at Not on file 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 We appreciate this opportunity to participate in your care. We have reviewed the concerns about your memory and thinking. Diagnosis We think that the changes you and your family have observed in your memory and thinking are most likely caused by: Alzheimer's dementia, early onset. We have referred you for clinical drug Trials, Birdie Rendon will call you to further discuss. It will be important to re-assess your memory in the future. We can compare your test results in the future to the test results from today so we can get a more accurate picture of how your memory haschanged. Medications: No changes were made in your medications today Additional Recommendations: Nutrition: We recommend that you [...] Program, from The Alzheimer's Association, please call [phone], or you can register online [email or web address]. Driving: We discussed safe driving, and there are currently no concerns about your driving. We recommend a family member, or friend ride with you periodically (every few months), to make sure you arefollowing the rules of the road. Level of Care Recommendation: Independently with help and oversight from family. Legal: No legal concerns were discussed today. RESOURCES FOR ADDITIONAL INFORMATION AND SUPPORT Opportunities to participate in research can be found at: trialRENTISHtch.[employer].org Access TrialPrepair online. For additional assistance, email TrialMatch@[employer].org or call 948.041.0181 (press 1 for clinical trials). ClinicalTrials.gov is a resource provided by the U.S. National Library of Medicine. You can look upclinical trials (research opportunities) online At clinicaltrials.gov Alzheimer's Association [facility] Chapter: ; (toll free); http://www.alz.org, The Alzheimer's Association 05/03 Helpline provides reliable information and support to all those who need assistance. Call toll-free anytime day or night at . Caregiver Guide: tips for caregivers of people with Alzheimer's dementia, www.smiley.nih.gov/Alzheimers /Publication/Bjggad-umqfsc-axfifxbope-disease/about-guide [facility], [address] [facility] [place] [address], , Occupational Therapists who offers caregiver training, family support, and in home safety assessments at no cost. Memorycarehs[facility]org [facility] Agency on Aging (serving [facility]) http://[facility].[place].[facility]/government/hslaaa.html [facility] Agency on Aging (serving [place], [place], [place] [facility] [email or web address] If you need to reach our office, please call our nurse at [phone], option 4, leave a message, this voicemail is checked several times per day. If you need to contact our social services director: Alan Be or Jose Angel Arriola, from the Alzheimer's Association, please call [phone] Future Appointments Date Time Provider Department Center 07/12/2020 4:30 PM Flores Moore MD PhD [facility] 6C NL documented in this encounter Progress Notes * Dianne Worthington NP - 03/25/2020 2:30 PM CDT [facility] VIDEO via ZOOM VISIT SHY Watson (Nurse Practitioner) [facility] Department of Neurology Patient Name: GANESH MACIEL Medical Record Number (MRN): [id number] Date of (): 1960 Encounter Date: 03/25/2020 Referring MD: Dr. Ganesh Prince MD Primary Care Practitioner: Dr. Ganesh Prince MD CHIEF COMPLAINT memory and thinking difficulty Collateral Source: spouse, serves as the collateral source/sources (CS/CS's). The CS typically seesthe patient daily. HISTORY OF PRESENT ILLNESS Mr. Maciel is a 59 y.o. gentleman who is [facility] the [facility] for further evaluation of memory and thinking problems. He is in generally good health. Dementia History: he has a history of EOAD TODAY'S VISIT: There has not been hospitalizations, or major medical illnesses since the last visit. Medications were reviewed, there were were no changes. Overall, the CS thinks memory and thinking problems have gotten the same, over the past 6-12 months. Short term memory is about the same. He is driving, in familiar settings. He would have a hard timein a less familiar setting. He watches a lot of TV. He does things around the house to help. 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 He does laundry, helps with dishes, walks the dogs for walks, mows the lawn. He no longer cooks, doesn't feel comfortable, says he is just nervous about it. He has trouble operating the stove/oven. He doesn't shave as much and needs some prompting to shower. He is not having language difficulty. Mood and Behavior: NPI-Q: Behavioral changes were assessed by administering the NPI-Q to the CS: Depression/apathy: present, maybe a little on the depressed side Anxiety: present and mild Trouble sleeping: sleeps well Agitation/Aggression: no agitation Irritability/lability: absent Disinhibition: absent Euphoria or Elation: absent Hallucinations: no hallucinations Delusions: absent Paranoia: absent Appetite changes: normal Wandering: absent Driving: The pt is driving. Memory problems have been consistent and have been slowly progressive. ACTIVE PROBLEMS Patient Active Problem List Diagnosis [...] Known Allergies MEDICATIONS Current Outpatient Medications: ??? escitalopram (LEXAPRO) 20 mg tablet, Take 1 tablet (20 mg total) by mouth daily, Disp: 90 tablet, Rfl: 3 ??? atorvastatin (LIPITOR) 10 mg tablet, Take 10 mg by mouth daily., Disp: , Rfl: 3 ??? donepezil (ARICEPT) 10 mg tablet, TAKE 1 TABLET BY MOUTH EVERY DAY WITH BREAKFAST, Disp: 90 tablet, Rfl: 3 FAMILY & SOCIAL HISTORY [...] resource strain: Not on file ??? Food insecurity Worry: Not on file Inability: Not on file ??? Transportation needs Medical: Not on file Non-medical: Not on file Tobacco Use ??? Smoking status: Former Smoker Substance and Sexual Activity ??? Alcohol use: Yes ??? Drug use: Not on file ??? Sexual activity: Not on file Lifestyle ??? Physical activity Days per week: Not on file Minutes per session: Not on file ??? Stress: Not on file Relationships ??? Social connections Talks on phone: Not on file Gets together: Not on file Attends voodoo service: Not on file Active member of club or organization: Not on file Attends meetings of clubs or organizations: Not on file Relationship status: Not on file ??? Intimate partner violence Fear of current or ex partner: Not on file Emotionally abused: Not on file Physically abused: Not on file Forced sexual activity: Not on file Other Topics Concern ??? Not on file Social History Narrative Alcohol use : (Added by TW Conv) Review of Systems Constitutional: Negative. HENT: Negative. Eyes: Negative. Respiratory: Negative. Cardiovascular: Negative. Gastrointestinal: Negative. Genitourinary: Negative. Musculoskeletal: Negative. Skin: Negative. Neurological: Negative. Negative for dizziness. No further dizziness, did not decrease donepezil/Aricept and is doing fine on 10 mg Endo/Heme/Allergies: Negative. Psychiatric/Behavioral: Positive for depression and memory loss. The patient is nervous/anxious. Medical Records Review: I reviewed [facility] notes and prior Neuropsychometric testing scores. [facility] Neurobehavioral Status Exam Results 09/05/2018 07/21/2019 Repository ICF signed? Yes No Verbal Fluency Total Score 14 14 Lena Naming (15 item) Total Score 14 15 MMSE Score 22 26 Word List Memory Task 16 14 Word List Recall 0 0 Short Blessed Total Score - 9 Logical Memory Total Score 4 2 Trails A - Seconds to complete 36 36 Trails A - Errors 0 0 Trails B - Seconds to complete (No Data) 0 Trails B - Errors - 0 Total Score (out of 90) (No Data) 24 Digit Symbol Errors - 0 Lab Results Component Value Date TSH 2.38 01/28/2017 D0GLDAO 5.1 05/19/2013 Lab Results Component Value Date [...] Results Component Value Date VITB12 389 02/21/2017 n more global tests, MMSE was 16/20. Episodic recall was 3/3. These findings are consistent with mildly impaired. My interpretation and reporting of these results took 5 minutes. I reviewed the testing with the CS(CS'S) and patient and compared prior testing scores. Clinical Dementia Rating: [facility] CDR/DIAGNOSIS NEW 09/05/2018 07/21/2019 Repository ICF signed? Yes No Memory 1 2 Orientation 1 1 Judgement & Problem Solving 1 2 Community Affairs 0 1 Home & Hobbies 1 2 Personal Care 1 1 Global Score 1 1 Sum of Boxes 5 9 Year of Onset 2013 2013 Alert for Potential Transmissible Disorders No No AD Dementia Alzheimer Disease Dementia Alzheimer Disease Dementia Mood disorder (any type) Active - Alcoholism - Remote Neurologic Exam via video ??? Mental status: (observational): Awake and attentive. ??? Speech: normal ??? Cranial Nerves: ??? Visual Borrego: ??? EOM: able to look all the way to the left, right, up, and down ??? able to fixate on camera and rotate head from side to side for fixation ??? nystagmus is absent ??? Face features: symmetric ??? Hearing: upon gross, hearing is intact to voice ??? Shoulders: symmetric ??? Tongue protrusion: midline ??? Motor exam: Tremors cannot be easily seen on camera ??? Strength: Arms: using pronator drift, is absent, finger taps normal ??? Tone: bradykinesia by inspection is absent ??? left/right/differentiation: Intact ??? Cerebellar: finger to nose testing is Intact ??? able to extend arm all the way out, then touch their own nose ??? Gait testing: normal ASSESSMENT Mr. Maciel is a 59 y.o. gentleman with a history of stable cognitive changes, consistent with a clinical diagnosis of Alzheimer's dementia, early onset. Medication Recommendations: no change, continue donepezil/Aricept 10 mg daily and Lexapro/escitalopram 20 mg daily. Namenda not indicated at this mild stage of impairment. PLAN OF CARE: (Shared with CS, CS's) [...] this encounter. Patient Instructions [facility] TODAY'S VISIT Provider: SHY Watson (Nurse Practitioner) Thank you for coming to the [facility] today. We appreciate this opportunity to participate in your care. We have reviewed the concerns about your memory and thinking. Diagnosis We think that the changes you and your family have observed in your memory and thinking are most likely caused by: Alzheimer's dementia, early onset. We have referred you for clinical drug Trials, Birdie Rendon will call you to further discuss. It will be important to re-assess your memory in the future. We can compare your test results in the future to the test results from today so we can get a more accurate picture of how your memory haschanged. Medications: No changes were made in your medications today Additional Recommendations: Nutrition: We recommend that you [...] Program, from The Alzheimer's Association, please call [phone], or you can register online [email or web address]. Driving: We discussed safe driving, and there are currently no concerns about your driving. We recommend a family member, or friend ride with you periodically (every few months), to make sure you arefollowing the rules of the road. Level of Care Recommendation: Independently with help and oversight from family. Legal: No legal concerns were discussed today. RESOURCES FOR ADDITIONAL INFORMATION AND SUPPORT Opportunities to participate in research can be found at: trialmatch.alz.org Access TrialMatch online. For additional assistance, email [email or web address] or call 651.857.5688 (press 1 for clinical trials). ClinicalTrials.gov is a resource provided by the U.S. National Library of Medicine. You can look upclinical trials (research opportunities) online At clinicaltrials.gov Alzheimer's Association [facility] Chapter: ; (toll free); http://www.alz.org, The Alzheimer's Association 05/03 Helpline provides reliable information and support to all those who need assistance. Call toll-free anytime day or night at . Caregiver Guide: tips for caregivers of people with Alzheimer's dementia, www.smiley.nih.gov/Alzheimers /Publication/Dimfxe-ohgzha-uupmhccnpg-disease/about-guide [facility], [address] [place]. [address], , Occupational Therapists who offers caregiver training, family support, and in home safety assessments at no cost. [facility]org [facility] Agency on Aging (serving [facility]) http://[facility].[place].org/government/hslaaa.html [facility] Agency on Aging (serving [facility] and [facility] http://[email or web address].formerly [facility]aaa.org If you need to reach our office, please call our nurse at [phone], option 4, leave a message, this voicemail is checked several times per day. If you need to contact our social services director: Alan Be or Jose Angel Arriola, from the Alzheimer's Association, please call [phone] Future Appointments Date Time Provider Department Center 07/12/2020 4:30 PM Florse Moore MD PhD [facility] 6C NL This was a telemedicine visit with Ganesh Maciel and which took place via Real-time video connection (Gimahhotuch, Zoom or similar). During the visit, I was located at home office in the state [facility] and the patient was located home in [place]. The session started at 1430 and ended at 1450. In addition to the time spent during the session with the patient, I spent 10 minutes preparing to see the patient, 10 minutes on counseling/education of the patient/family/caregiver (coordination of care), 2 minutes referring and communicating with other healthcare professionals, 10 minutes documenting clinical information in the electronic or otherhealth record, 5 minutes independently interpreting results and communicating the results to the patient/family/caregiver } on the day of the visit. Total time spend on encounter on the day of the visit: 47 minutes. The patient has been informed that the visit may not be secure and acknowledged the information. It was explained to the patient they have the option of participating in a telephone or video visitduring the [address] emergency[address] After being given an opportunity to ask questions about and discuss this type of visit, the patient verbally consented to proceeding with the telephone / video visit. The patient understands that this service replaces an office visit and they may be billed and/or responsible for any applicable copayments. SHY Watson [facility] [address], [address] [place] [address] documented in this encounter Plan of Treatment Not on file documented as of this encounter Visit Diagnoses Diagnosis 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 disturbance (HCC) documented in this encounter Discontinued Medications Medication Sig Discontinue Reason Start Date End Da te SPECTRAVITE SENIOR tablet Take 1 tablet by mouth daily. 01/29/2017 03/25/2020 folic acid (FOLVITE) 1 mg tablet Take 1,000 mcg by mouth daily. 01/29/2017 03/25/2020 meclizine (ANTIVERT) 12.5 mg tablet Take 12.5 mg by mouth 3 (three) times a day as needed. 03/25/2020 documented as of this encounter Orders Outpatient Referral Count Last Ordered Date Fir st Ordered Date AMB REFERRAL TO NEUROLOGY 1 03/25/2020 documented in this encounter Care Teams Spinneret Cleaner Relationship Specialty Start Date End Date Ganseh Prince MD PCP - General 11/28/17 documented as of this encounter
--- OUTSIDE RECORDS SUMMARY | 2024-08-13 04:56 | XMS_ITS | Encounter Summary ---
Author Organization [facility] Address [address] [place] [address] Phone Care Team Providers Care Bi Data Architect Name Role Phone Ganesh Prince MD Primary Care Provider [phone] Encounter Details Date Type Department Care Team (Late st Contact Info) Description 12/29/2021 Orders Only [facility] [address] [facility] 6th Floor [address] [place] [address] [place], Karina Lu NP [address] [facility] [id number] [place] [address] Social History Tobacco Use Types Packs/Day Years Used Date Smoking Tobacco: Former Alcohol Use Standard Drinks/Week Comments Yes 0 (1 standard drink = 0.6 oz pur e alcohol) Sex and Gender Information Value Date Recorded Sex Assigned at Not on file 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
--- OUTSIDE RECORDS SUMMARY | 2024-08-13 04:56 | XMS_ITS | Data Portability ---
Author Organization [place] - [address], Main Office Address [address] [place] [address] Care Team Providers Care Produce Service Team Member Name Role Phone GAGE PRINCE Primary Care Provider Assessment Encounter Date Assessment Date Assessment LastModified by Organization Details LastModified Time 11/16/2022 11/16/2022 Given dementia and very difficulty examining abdomen will go ahead and get CT the abdomen pelvis urinalysis and blood work Annual wellness visit concluded Dementia appears to be stable Follow-up 6 months Not available 11/17/2022 14:10:05 07/24/2023 07/24/2023 Medicines will continue he did see Urology nothing checked out there for the blood in the urine he will see me back in 4-6 months continue Cerner his current meds Not available 07/25/2023 18:17:05 Plan of Treatment Reminders Order Date Submit Date Provider Last Modified By Organization Details Last Modified Time Details Appointments None recorded. Lab lipase, serum or plasma 2022 023 [facility], [address] [place] [address] [place], [address], 3 18:30:19 CBC w/ auto diff [address] [place], [address], 3 18:52:53 urinalysis, microscopic [address] [place], [address], 3 11:34:49 PSA, serum or plasma [address] [place], [address], 3 11:34:39 lipid panel, serum [address] [place], [address], 3 18:30:07 CMP, serum or plasma [address] [place], [address], 3 18:30:18 CBC w/ auto diff [address] [place], [address], 4 08:31:22 CMP, serum or plasma [address] [place], [address], 4 08:31:22 lipid panel, serum [address] [place], [address], 4 08:31:22 Referral None recorded. Procedures None recorded. Surgeries None recorded. Imaging CT, abdomen + pelvis, w/ contrast 2022 023 [facility] Scheduling, [address] [facility] [place], [address], 3 00:47:21 Medication Orders None recorded. Patient TargetsNo targets recorded. Patient Instructions Encounter Date Encounter Id Patient Instructions Last Modified By Organization Details Last Modified Time 11/16/2022 [id number] dementia rating scale-2* [email or web address] Not available 11/16/2022 17:18:32 depression screening* [email or web address] Not available 11/16/2022 17:18:32 alcohol misuse* [email or web address] Not available 11/16/2022 17:18:32 multi-dimensiona l health assessment questionnaire* [email or web address] Not available 11/16/2022 17:18:32 Personalized [facility] Plan and Screening Recommendations Advance Directives - Do you have one? Yes Advance Directives - Do we have your advance directive on file in your health record? Primary Prevention/Interven tion (prevents or decreases the chance of common diseases from occurring) Smoking Risk: Non Smoker Alcohol Misuse Screening: Negative Weight: Appropriate Physical activity: minimum of 10-20 minutes of activity that causes mild breathlessness/day Nutrition: Good Average Refer to attached handout Heart-Healthy Diet: After Your Visit Fall Risk (screened today): Low Vaccines Pneumococcal: Influenza: Chronic Disease Risks Stroke: Low Risk Intermediate Risk Heart Attack: Low risk Intermediate Risk Clogging of the Arteries: Low risk Intermediate Risk Diabetes: Low Risk I have no recommendations Secondary Prevention/Interven tion (detects treatable diseases before they may cause symptoms, disability, or ) Prostate Cancer Screening: Colon Cancer Screening: Colonoscopy Date Screening Last Performed: Per , within last 10 years Eye Disease Screening: Ordered Recommended today Dementia Risk: Depression Screening: Negative Not available 11/16/2022 15:46:37 Reason for Referral None Reported. Results Created Date Observation Date Name Description Value Unit Range Abnormal Flag Note LastModifiedBy Organization Detail LastModifiedTime 04/07/20 21 04/07/2021 LIPID PANEL LDL cholesterol, calculated 110 mg/dL 0-130 [facility] ROSELINE NSUS REPOR T RECOM MENDA TIONS FOR LDL: ADULT CHILD LOW RISK <130 <110 (OPTI MAL LDL) <100 ----- BORDE RLINE : 130-1 59 ----- HIGH RISK: >160 >130 A TRIGL YCERI DE RESUL T >400 INVAL IDATE S THE CALCU LATIO N FOR LDL FRACT IONAT ION - THE LDL RESUL T WILL NOT BE REPOR JOSEPH. Not Available [facility] (Lab) [address] [place], [address], 04/07/2021 21:29:03 04/07/20 21 04/07/2021 LIPID PANEL cholesterol 183 mg/dL 140-19 9 [facility] ROSELINE NSUS RECOM MENDA TION FOR OMER STERO L: ADULT CHILD LOW RISK: <200 <170 BORDE RLINE : <200- 239 ----- HIGH RISK: >240 >[address] [facility] (Lab) [address] [place], [address], 04/07/2021 21:29:03 04/07/20 21 04/07/2021 LIPID PANEL triglyceride s 149 mg/dL 0-150 NIH ROSELINE NSUS REPOR T RECOM MENDA TION FOR TRIGL YCERI DAVID: ADULT CHILD LOW RISK: <150 ----- BODER LINE: 150-1 99 ----- HIGH RISK: >200 ----- Not Available [facility] (Lab) [address] [place], [address], 04/07/2021 21:29:03 04/07/20 21 04/07/2021 LIPID PANEL HDL cholesterol 43 mg/dL 40- Not Available [facility] (Lab) [address] [place], [address], 04/07/2021 21:29:03 10/28/19 22 10/27/2021 PSA SCREE N PSA medicare screen 0.54 NG/mL 0.00-4 .[address] [facility] (Lab) [address] [place], [address], 10/27/2021 19:11:55 10/28/19 22 10/27/2021 LIPID PANEL LDL cholesterol, calculated 164 mg/dL 0-130 high NIH ROSELINE NSUS REPOR T RECOM MENDA TIONS FOR LDL: ADULT CHILD LOW RISK <130 <110 (OPTI MAL LDL) <100 ----- BORDE RLINE : 130-1 59 ----- HIGH RISK: >160 >130 A TRIGL YCERI DE RESUL T >400 INVAL IDATE S THE CALCU LATIO N FOR LDL FRACT IONAT ION - THE LDL RESUL T WILL NOT BE REPOR JOSEPH. Not Available [facility] (Lab) [address] [place], [address], 10/27/2021 18:39:09 10/28/19 22 10/27/2021 LIPID PANEL cholesterol 262 mg/dL 140-19 9 high NIH ROSELINE NSUS RECOM MENDA TION FOR OMER STERO L: ADULT CHILD LOW RISK: <200 <170 BORDE RLINE : <200- 239 ----- HIGH RISK: >240 >[address] [facility] (Lab) [address] [place], [address], 10/27/2021 18:39:09 10/28/19 22 10/27/2021 LIPID PANEL triglyceride s 242 mg/dL 0-150 high NIH ROSELINE NSUS REPOR T RECOM MENDA TION FOR TRIGL YCERI DAVID: ADULT CHILD LOW RISK: <150 ----- BODER LINE: 150-1 99 ----- HIGH RISK: >200 ----- Not Available [facility] (Lab) [address] [place], [address], 10/27/2021 18:39:09 10/28/19 22 10/27/2021 LIPID PANEL HDL cholesterol 50 mg/dL 40- Not Available [facility] (Lab) [address] [place], [address], 10/27/2021 18:39:09 10/28/19 22 10/27/2021 COMPR EHENS SABA METAB OLIC PANEL carbon dioxide 22 mmol/ L 22-[address] [facility] (Lab) [address] [place], [address], 10/27/2021 18:39:04 10/28/19 22 10/27/2021 COMPR EHENS SABA METAB OLIC PANEL sodium 136 mmol/ L 137-14 5 low Not Available [facility] (Lab) [address] [place], [address], 10/27/2021 18:39:04 10/28/19 22 10/27/2021 COMPR EHENS SABA METAB OLIC PANEL potassium 4.5 mmol/ L 3.5-5. [address] [facility] (Lab) [address] [place], [address], 10/27/2021 18:39:04 10/28/19 22 10/27/2021 COMPR EHENS SABA METAB OLIC PANEL chloride 103 mmol/ L 98-[address] [facility] (Lab) [address] [place], [address], 10/27/2021 18:39:04 10/28/19 22 10/27/2021 COMPR EHENS SABA METAB OLIC PANEL agap 15.5 mmol/ L 14-[address] [facility] (Lab) [address] [place], [address], 10/27/2021 18:39:04 10/28/19 22 10/27/2021 COMPR EHENS SABA METAB OLIC PANEL glucose 89 mg/dL 70-[address] [facility] (Lab) [address] [place], [address], 10/27/2021 18:39:04 10/28/19 22 10/27/2021 COMPR EHENS SABA METAB OLIC PANEL BUN 15 mg/dL 8-[address] [facility] (Lab) [address] [place], [address], 10/27/2021 18:39:04 10/28/19 22 10/27/2021 COMPR EHENS SABA METAB OLIC PANEL creatinine 0.91 mg/dL 0.66-1 .[address] [facility] (Lab) [address] [place], [address], 10/27/2021 18:39:04 10/28/19 22 10/27/2021 COMPR EHENS SABA METAB OLIC PANEL GFR >60 Refer ence Range : [place] ge GFR Healt hy Adult : >60 mL/mi n/1.7 3 m2 Chron ic Kidne y Disea se: 15-60 mL/mi n/1.7 3 m2 Kidne y Failu re: <15/m L/min /1.73 m2 www.n iddk. nih.g ov The MDRD study equat ion has not been valid ated in child cisco <18 years of age; pregn ant women ; the elder ly >85 years of age; or in some racia l or ethni c subgr oups, such as Hispa nics. Outsi de the valid ated coty eters , estim ated GFR is less accur ate, requi ring clini yecenia judgm ent on a case- by-ca se basis . Clini yecenia inter preta tion for other races and ages must be made by the clini nadya. The MDRD study equat ion has not been valid ated for the evalu ation of serum creat inine relat ed to nutri samson l statu s or medic ation usage . For perso ns <18 years of age, a pedia tric GFR calcu lator is avail able on the [facility] websi te: https ://renetta camarena.cair rivera.o rg/pr ofess ional s/kdo qi/gf r_cal culat or Not Available [facility] (Lab) [address] [place], [address], 10/27/2021 18:39:04 10/28/19 22 10/27/2021 COMPR EHENS SABA METAB OLIC PANEL alkaline phosphatase 70 U/L 38-126 Not Available [facility] (Lab) [address] [place], [address], 10/27/2021 18:39:04 10/28/19 22 10/27/2021 COMPR EHENS SABA METAB OLIC PANEL alanine aminotransfe rase 16 U/L 0-50 Not Available [facility] (Lab) [address] [place], [address], 10/27/2021 18:39:04 10/28/19 22 10/27/2021 COMPR EHENS SABA METAB OLIC PANEL aspartate aminotransfe rase 28 U/L 15-46 Not Available [facility] (Lab) [address] [place], [address], 10/27/2021 18:39:04 10/28/19 22 10/27/2021 COMPR EHENS SABA METAB OLIC PANEL bilirubin, total 0.60 mg/dL 0.20-1 .[address] [facility] (Lab) [address] [place], [address], 10/27/2021 18:39:04 10/28/19 22 10/27/2021 COMPR EHENS SABA METAB OLIC PANEL calcium 9.8 mg/dL 8.4-10 .[address] [facility] (Lab) [address] [place], [address], 10/27/2021 18:39:04 10/28/19 22 10/27/2021 COMPR EHENS SABA METAB OLIC PANEL total protein 7.8 g/dL 6.3-8. [address] [facility] (Lab) [address] [place], [address], 10/27/2021 18:39:04 10/28/19 22 10/27/2021 COMPR EHENS SABA METAB OLIC PANEL albumin 4.7 g/dL 3.0-4. 4 high Not Available [facility] (Lab) [address] [place], [address], 10/27/2021 18:39:04 10/28/19 22 10/27/2021 COMPR EHENS SABA METAB OLIC PANEL globulin 3.1 g/dL 2.6-4. [address] [facility] (Lab) [address] [place], [address], 10/27/2021 18:39:04 10/28/19 22 10/27/2021 COMPR EHENS SABA METAB OLIC PANEL A/G ratio 1.5 ratio 1.0-2. [address] [facility] (Lab) [address] [place], [address], 10/27/2021 18:39:04 10/28/19 22 10/27/2021 CBC/C OMPLE TE BLD COUNT W/DIF F mean red cell volume 90.4 fL 80.0-9 7.[address] [facility] (Lab) [address] [place], [address], 10/27/2021 18:23:19 10/28/19 22 10/27/2021 CBC/C OMPLE TE BLD COUNT W/DIF F white blood cells 7.4 x10'3 /uL 4.2-10 .[address] [facility]Lab[facility] [address] [facility] [place], [address], 10/27/2021 18:23:19 10/28/19 22 10/27/2021 CBC/C OMPLE TE BLD COUNT W/DIF F red blood cells 4.98 x10'6 /uL 4.10-5 .[address] [facility] (Lab) [address] [place], [address], 10/27/2021 18:23:19 10/28/19 22 10/27/2021 CBC/C OMPLE TE BLD COUNT W/DIF F hemoglobin 15.4 g/dL 13.2-1 7.[address] [facility] (Lab) [address] [place], [address], 10/27/2021 18:23:19 10/28/19 22 10/27/2021 CBC/C OMPLE TE BLD COUNT W/DIF F hematocrit 45.0 % 39.3-5 0.[address] [facility] (Lab) [address] [place], [address], 10/27/2021 18:23:19 10/28/19 22 10/27/2021 CBC/C OMPLE TE BLD COUNT W/DIF F mean red cell hemoglobin 30.9 pg 27.0-3 3.[address] [facility] (Lab) [address] [place], [address], 10/27/2021 18:23:19 10/28/19 22 10/27/2021 CBC/C OMPLE TE BLD COUNT W/DIF F mean RBC HGB concentratio n 34.2 g/dL 31.0-3 6.[address] [facility] (Lab) [address] [place], [address], 10/27/2021 18:23:19 10/28/19 22 10/27/2021 CBC/C OMPLE TE BLD COUNT W/DIF F red cell distribution width 12.2 % 11.8-1 5.[address] [facility] (Lab) [address] [place], [address], 10/27/2021 18:23:19 10/28/19 22 10/27/2021 CBC/C OMPLE TE BLD COUNT W/DIF F platelets 237 x10'3 /uL 150-40 [address] [facility] (Lab) [address] [place], [address], 10/27/2021 18:23:19 10/28/19 22 10/27/2021 CBC/C OMPLE TE BLD COUNT W/DIF F mean platelet volume 9.9 fL 9.0-12 .[address] [facility] (Lab) [address] [place], [address], 10/27/2021 18:23:19 10/28/19 22 10/27/2021 CBC/C OMPLE TE BLD COUNT W/DIF F neutrophils 52.7 % 39.0-7 2.[address] [facility] (Lab) [address] [place], [address], 10/27/2021 18:23:19 10/28/19 22 10/27/2021 CBC/C OMPLE TE BLD COUNT W/DIF F lymphocytes 31.7 % 16.0-4 7.[address] [facility] (Lab) [address] [place], [address], 10/27/2021 18:23:19 10/28/19 22 10/27/2021 CBC/C OMPLE TE BLD COUNT W/DIF F monocytes 11.7 % 5.0-12 .[address] [facility] (Lab) [address] [place], [address], 10/27/2021 18:23:19 10/28/19 22 10/27/2021 CBC/C OMPLE TE BLD COUNT W/DIF F eosinophils 3.5 % 1.0-7. [address] [facility] (Lab) [address] [place], [address], 10/27/2021 18:23:19 10/28/19 22 10/27/2021 CBC/C OMPLE TE BLD COUNT W/DIF F basophils 0.4 % 0.0-2. [address] [facility] (Lab) [address] [place], [address], 10/27/2021 18:23:19 10/28/19 22 10/27/2021 CBC/C OMPLE TE BLD COUNT W/DIF F neutrophils, absolute count 3.87 x10'3 /uL 1.5-8. [address] [facility] (Lab) [address] [place], [address], 10/27/2021 18:23:19 10/28/19 22 10/27/2021 CBC/C OMPLE TE BLD COUNT W/DIF F lymphocytes, absolute count 2.33 x10'3 /uL 1.07-3 .[address] [facility] (Lab) [address] [place], [address], 10/27/2021 18:23:19 10/28/19 22 10/27/2021 CBC/C OMPLE TE BLD COUNT W/DIF F monocytes, absolute count 0.86 x10'3 /uL 0.29-0 .[address] [facility] (Lab) [address] [place], [address], 10/27/2021 18:23:19 10/28/19 22 10/27/2021 CBC/C OMPLE TE BLD COUNT W/DIF F eosinophils, absolute count 0.26 x10'3 /uL 0.02-0 .[address] [facility] (Lab) [address] [place], [address], 10/27/2021 18:23:19 10/28/19 22 10/27/2021 CBC/C OMPLE TE BLD COUNT W/DIF F basophils, absolute count 0.03 x10'3 /uL 0.01-0 .[address] [facility] (Lab) [address] [place], [address], 10/27/2021 18:23:19 05/18/20 22 05/18/2022 COMPR EHENS SABA METAB OLIC PANEL carbon dioxide 25 mmol/ L 22-30 Not Available [facility] (Lab) [address] [place], [address], 05/18/2022 18:36:05 05/18/20 22 05/18/2022 COMPR EHENS SABA METAB OLIC PANEL sodium 135 mmol/ L 137-14 5 low Not Available [facility] (Lab) [address] [place], [address], 05/18/2022 18:36:05 05/18/20 22 05/18/2022 COMPR EHENS SABA METAB OLIC PANEL potassium 4.1 mmol/ L 3.5-5. [address] [facility] (Lab) [address] [place], [address], 05/18/2022 18:36:05 05/18/20 22 05/18/2022 COMPR EHENS SABA METAB OLIC PANEL chloride 101 mmol/ L 98-[address] [facility] (Lab) [address] [place], [address], 05/18/2022 18:36:05 05/18/20 22 05/18/2022 COMPR EHENS SABA METAB OLIC PANEL anion gap 13.1 mmol/ L 14-22 low Not Available [facility] (Lab) [address] [place], [address], 05/18/2022 18:36:05 05/18/20 22 05/18/2022 COMPR EHENS SABA METAB OLIC PANEL glucose 81 mg/dL 70-99 Not Available [facility] (Lab) [address] [place], [address], 05/18/2022 18:36:05 05/18/20 22 05/18/2022 COMPR EHENS SABA METAB OLIC PANEL BUN 15 mg/dL 8-[address] [facility] (Lab) [address] [place], [address], 05/18/2022 18:36:05 05/18/20 22 05/18/2022 COMPR EHENS SABA METAB OLIC PANEL creatinine 0.99 mg/dL 0.66-1 .[address] [facility] (Lab) [address] [place], [address], 05/18/2022 18:36:05 05/18/20 22 05/18/2022 COMPR EHENS SABA METAB OLIC PANEL GFR >60 Refer ence Range : [place] ge GFR Healt hy Adult : >60 mL/mi n/1.7 3 m2 Chron ic Kidne y Disea se: 15-60 mL/mi n/1.7 3 m2 Kidne y Failu re: <15/m L/min /1.73 m2 www.n iddk. nih.g ov The MDRD study equat ion has not been valid ated in child cisco <18 years of age; pregn ant women ; the elder ly >85 years of age; or in some racia l or ethni c subgr oups, such as Hispa nics. Outsi de the valid ated coty eters , estim ated GFR is less accur ate, requi ring clini yecenia judgm ent on a case- by-ca se basis . Clini yecenia inter preta tion for other races and ages must be made by the clini nadya. The MDRD study equat ion has not been valid ated for the evalu ation of serum creat inine relat ed to nutri samson l statu s or medic ation usage . For perso ns <18 years of age, a pedia tric GFR calcu lator is avail able on the [facility] websi te: https ://ww w.kid miguel.o rg/pr ofess ional s/kdo qi/gf r_cal culat or Not Available [facility] (Lab) [address] [place], [address], 05/18/2022 18:36:05 05/18/20 22 05/18/2022 COMPR EHENS SABA METAB OLIC PANEL alkaline phosphatase 62 U/L 38-126 Not Available [facility] (Lab) [address] [place], [address], 05/18/2022 18:36:05 05/18/20 22 05/18/2022 COMPR EHENS SABA METAB OLIC PANEL alanine aminotransfe rase 18 U/L 0-50 Not Available [facility] (Lab) [address] [place], [address], 05/18/2022 18:36:05 05/18/20 22 05/18/2022 COMPR EHENS SABA METAB OLIC PANEL aspartate aminotransfe rase 28 U/L 15-46 Not Available [facility] (Lab) [address] [place], [address], 05/18/2022 18:36:05 05/18/20 22 05/18/2022 COMPR EHENS SABA METAB OLIC PANEL bilirubin, total 1.20 mg/dL 0.20-1 .[address] [facility] (Lab) [address] [place], [address], 05/18/2022 18:36:05 05/18/20 22 05/18/2022 COMPR EHENS SABA METAB OLIC PANEL calcium 9.3 mg/dL 8.4-10 .[address] [facility] (Lab) [address] [place], [address], 05/18/2022 18:36:05 05/18/20 22 05/18/2022 COMPR EHENS SABA METAB OLIC PANEL total protein 7.5 g/dL 6.3-8. 2 Not Available [facility] (Lab) [address] [place], [address], 05/18/2022 18:36:05 05/18/20 22 05/18/2022 COMPR EHENS SABA METAB OLIC PANEL albumin 4.6 g/dL 3.0-4. 4 high Not Available [facility] (Lab) [address] [place], [address], 05/18/2022 18:36:05 05/18/20 22 05/18/2022 COMPR EHENS SABA METAB OLIC PANEL globulin 2.9 g/dL 2.6-4. [address] [facility] (Lab) [address] [place], [address], 05/18/2022 18:36:05 05/18/20 22 05/18/2022 COMPR EHENS SABA METAB OLIC PANEL A/G ratio 1.6 ratio 1.0-2. [address] [facility] (Lab) [address] [place], [address], 05/18/2022 18:36:05 05/18/20 22 05/18/2022 LIPID PANEL cholesterol 223 mg/dL 140-19 9 high NIH ROSELINE NSUS RECOM MENDA TION FOR OMER STERO L: ADULT CHILD LOW RISK: <200 <170 BORDE RLINE : <200- 239 ----- HIGH RISK: >240 >[address] [facility] (Lab) [address] [place], [address], 05/18/2022 18:35:39 05/18/20 22 05/18/2022 LIPID PANEL triglyceride s 148 mg/dL 0-150 NIH ROSELINE NSUS REPOR T RECOM MENDA TION FOR TRIGL YCERI DAVID: ADULT CHILD LOW RISK: <150 ----- BODER LINE: 150-1 99 ----- HIGH RISK: >200 ----- Not Available [facility] (Lab) [address] [place], [address], 05/18/2022 18:35:39 05/18/20 22 05/18/2022 LIPID PANEL HDL cholesterol 44 mg/dL 40- Not Available [facility] (Lab) [address] [place], [address], 05/18/2022 18:35:39 05/18/20 22 05/18/2022 LIPID PANEL LDL cholesterol, calculated 149 mg/dL 0-130 high NIH ROSELINE NSUS REPOR T RECOM MENDA TIONS FOR LDL: ADULT CHILD LOW RISK <130 <110 (OPTI MAL LDL) <100 ----- BORDE RLINE : 130-1 59 ----- HIGH RISK: >160 >130 A TRIGL YCERI DE RESUL T >400 INVAL IDATE S THE CALCU LATIO N FOR LDL FRACT IONAT ION - THE LDL RESUL T WILL NOT BE REPOR JOSEPH. Not Available [facility] (Lab) [address] [place], [address], 05/18/2022 18:35:39 05/18/20 22 05/18/2022 CBC/C OMPLE TE BLD COUNT W/DIF F mean red cell volume 90.8 fL 80.0-9 7.[address] [facility] (Lab) [address] [place], [address], 05/18/2022 18:18:24 05/18/20 22 05/18/2022 CBC/C OMPLE TE BLD COUNT W/DIF F white blood cells 7.7 x10'3 /uL 4.2-10 .8 Not Available [facility] (Lab) [address] [place], [address], 05/18/2022 18:18:24 05/18/20 22 05/18/2022 CBC/C OMPLE TE BLD COUNT W/DIF F red blood cells 4.67 x10'6 /uL 4.10-5 .80 Not Available [facility] (Lab) [address] [place], [address], 05/18/2022 18:18:24 05/18/20 22 05/18/2022 CBC/C OMPLE TE BLD COUNT W/DIF F hemoglobin 14.5 g/dL 13.2-1 7.[address] [facility] (Lab) [address] [place], [address], 05/18/2022 18:18:24 05/18/20 22 05/18/2022 CBC/C OMPLE TE BLD COUNT W/DIF F hematocrit 42.4 % 39.3-5 0.0 Not Available [facility] (Lab) [address] [place], [address], 05/18/2022 18:18:24 05/18/20 22 05/18/2022 CBC/C OMPLE TE BLD COUNT W/DIF F mean red cell hemoglobin 31.0 pg 27.0-3 3.[address] [facility] (Lab) [address] [place], [address], 05/18/2022 18:18:24 05/18/20 22 05/18/2022 CBC/C OMPLE TE BLD COUNT W/DIF F mean RBC HGB concentratio n 34.2 g/dL 31.0-3 6.[address] [facility] (Lab) [address] [place], [address], 05/18/2022 18:18:24 05/18/20 22 05/18/2022 CBC/C OMPLE TE BLD COUNT W/DIF F red cell distribution width 12.4 % 11.8-1 5.5 Not Available [facility] (Lab) [address] [place], [address], 05/18/2022 18:18:24 05/18/20 22 05/18/2022 CBC/C OMPLE TE BLD COUNT W/DIF F platelets 214 x10'3 /uL 150-40 [address] [facility] (Lab) [address] [place], [address], 05/18/2022 18:18:24 05/18/2005/18/2022 CBC/C OMPLE TE BLD COUNT W/DIF F mean platelet volume 9.7 fL 9.0-12 .[address] [facility] (Lab) [address] [place], [address], 05/18/2022 18:18:24 05/18/20 22 05/18/2022 CBC/C OMPLE TE BLD COUNT W/DIF F neutrophils 60.3 % 39.0-7 2.[address] [facility] (Lab) [address] [place], [address], 05/18/2022 18:18:24 05/18/20 22 05/18/2022 CBC/C OMPLE TE BLD COUNT W/DIF F lymphocytes 25.9 % 16.0-4 7.[address] [facility] (Lab) [address] [place], [address], 05/18/2022 18:18:24 05/18/20 22 05/18/2022 CBC/C OMPLE TE BLD COUNT W/DIF F monocytes 10.5 % 5.0-12 .[address] [facility] (Lab) [address] [place], [address], 05/18/2022 18:18:24 05/18/20 22 05/18/2022 CBC/C OMPLE TE BLD COUNT W/DIF F eosinophils 2.2 % 1.0-7. [address] [facility] (Lab) [address] [place], [address], 05/18/2022 18:18:24 05/18/20 22 05/18/2022 CBC/C OMPLE TE BLD COUNT W/DIF F basophils 0.7 % 0.0-2. 0 Not Available [facility] (Lab) [address] [place], [address], 05/18/2022 18:18:24 05/18/2005/18/2022 CBC/C OMPLE TE BLD COUNT W/DIF F immature granulocytes 0.4 % 0.00-0 .[address] [facility] (Lab) [address] [place], [address], 05/18/2022 18:18:24 05/18/2005/18/2022 CBC/C OMPLE TE BLD COUNT W/DIF F neutrophils, absolute count 4.62 x10'3 /uL 1.5-8. 0 Not Available [facility] (Lab) [address] [place], [address], 05/18/2022 18:18:24 05/18/20 22 05/18/2022 CBC/C OMPLE TE BLD COUNT W/DIF F basophils, absolute count 0.05 x10'3 /uL 0.01-0 .[address] [facility] (Lab) [address] [place], [address], 05/18/2022 18:18:24 05/18/2005/18/2022 CBC/C OMPLE TE BLD COUNT W/DIF F lymphocytes, absolute count 1.98 x10'3 /uL 1.07-3 .[address] [facility] (Lab) [address] [place], [address], 05/18/2022 18:18:24 10/06/20 22 05/18/2022 CBC/C OMPLE TE BLD COUNT W/DIF F monocytes, absolute count 0.80 x10'3 /uL 0.29-0 .[address] [facility] (Lab) [address] [place], [address], 05/18/2022 18:18:24 05/18/20 22 05/18/2022 CBC/C OMPLE TE BLD COUNT W/DIF F eosinophils, absolute count 0.17 x10'3 /uL 0.02-0 .[address] [facility] (Lab) [address] [place], [address], 05/18/2022 18:18:24 05/18/20 22 05/18/2022 CBC/C OMPLE TE BLD COUNT W/DIF F immature granulocytes ,absolute 0.03 x10'3 /uL 0.00-0 .[address] [facility] (Lab) [address] [place], [address], 05/18/2022 18:18:24 05/18/20 22 05/18/2022 CBC/C OMPLE TE BLD COUNT W/DIF F nucleated red blood cells 0.0 % -0 Not Available [facility] (Lab) [address] [place], [address], 05/18/2022 18:18:24 05/18/20 22 05/18/2022 CBC/C OMPLE TE BLD COUNT W/DIF F NRBC# 0.00 x10'3 /uL Not Available [facility] (Lab) [address] [place], [address], 05/18/2022 18:18:24 11/17/19 23 11/16/2022 LIPID PANEL cholesterol 244 mg/dL 140-19 9 high NIH ROSELINE NSUS RECOM MENDA TION FOR OMER STERO L: ADULT CHILD LOW RISK: <200 <170 BORDE RLINE : <200- 239 ----- HIGH RISK: >240 >[address] [facility] (Lab) [address] [place], [address], 11/16/2022 18:30:07 11/17/19 23 11/16/2022 LIPID PANEL triglyceride s 163 mg/dL 0-150 high NIH ROSELINE NSUS REPOR T RECOM MENDA TION FOR TRIGL YCERI DAVID: ADULT CHILD LOW RISK: <150 ----- BODER LINE: 150-1 99 ----- HIGH RISK: >200 ----- Not Available [facility] (Lab) [address] [place], [address], 11/16/2022 18:30:07 11/17/19 23 11/16/2022 LIPID PANEL HDL cholesterol 44 mg/dL 40- Not Available [facility] (Lab) [address] [place], [address], 11/16/2022 18:30:07 11/17/19 23 11/16/2022 LIPID PANEL LDL cholesterol, calculated 167 mg/dL 0-130 high NIH ROSELINE NSUS REPOR T RECOM MENDA TIONS FOR LDL: ADULT CHILD LOW RISK <130 <110 (OPTI MAL LDL) <100 ----- BORDE RLINE : 130-1 59 ----- HIGH RISK: >160 >130 A TRIGL YCERI DE RESUL T >400 INVAL IDATE S THE CALCU LATIO N FOR LDL FRACT IONAT ION - THE LDL RESUL T WILL NOT BE REPOR JOSEPH. Not Available [facility] (Lab) [address] [place], [address], 11/16/2022 18:30:07 11/17/19 23 11/16/2022 COMPR EHENS SABA METAB OLIC PANEL sodium 136 mmol/ L 137-14 5 low Not Available [facility] (Lab) [address] [place], [address], 11/16/2022 18:30:18 11/17/19 23 11/16/2022 COMPR EHENS SABA METAB OLIC PANEL potassium 3.9 mmol/ L 3.5-5. [address] [facility] (Lab) [address] [place], [address], 11/16/2022 18:30:18 11/17/19 23 11/16/2022 COMPR EHENS SABA METAB OLIC PANEL chloride 102 mmol/ L 98-107 Not Available [facility] (Lab) [address] [place], [address], 11/16/2022 18:30:18 11/17/19 23 11/16/2022 COMPR EHENS SABA METAB OLIC PANEL carbon dioxide 24 mmol/ L 22-[address] [facility] (Lab) [address] [place], [address], 11/16/2022 18:30:18 11/17/19 23 11/16/2022 COMPR EHENS SABA METAB OLIC PANEL anion gap 13.9 mmol/ L 14-22 low Not Available [facility] (Lab) [address] [place], [address], 11/16/2022 18:30:18 11/17/19 23 11/16/2022 COMPR EHENS SABA METAB OLIC PANEL glucose 112 mg/dL 70-99 high Not Available [facility] (Lab) [address] [place], [address], 11/16/2022 18:30:18 11/17/19 23 11/16/2022 COMPR EHENS SABA METAB OLIC PANEL BUN 14 mg/dL 8-[address] [facility] (Lab) [address] [place], [address], 11/16/2022 18:30:18 11/17/19 23 11/16/2022 COMPR EHENS SABA METAB OLIC PANEL creatinine 0.93 mg/dL 0.66-1 .[address] [facility] (Lab) [address] [place], [address], 11/16/2022 18:30:18 11/17/19 23 11/16/2022 COMPR EHENS SABA METAB OLIC PANEL GFR >60 Refer ence Range : [place] ge GFR Healt hy Adult : >60 mL/mi n/1.7 3 m2 Chron ic Kidne y Disea se: 15-60 mL/mi n/1.7 3 m2 Kidne y Failu re: <15/m L/min /1.73 m2 www.n iddk. nih.g ov The MDRD study equat ion has not been valid ated in child cisco <18 years of age; pregn ant women ; the elder ly >85 years of age; or in some racia l or ethni c subgr oups, such as Hispa nics. Outsi de the valid ated coty eters , estim ated GFR is less accur ate, requi ring clini yecenia judgm ent on a case- by-ca se basis . Clini yecenia inter preta tion for other races and ages must be made by the clini nadya. The MDRD study equat ion has not been valid ated for the evalu ation of serum creat inine relat ed to nutri samson l statu s or medic ation usage . For perso ns <18 years of age, a pedia tric GFR calcu lator is avail able on the [facility] websi te: https ://renetta camarena.cari [place].o rg/pr ofess ional s/kdo qi/gf r_cal culat or Not Available [facility] (Lab) [address] [place], [address], 11/16/2022 18:30:18 11/17/1911/16/2022 COMPR EHENS SABA METAB OLIC PANEL alkaline phosphatase 61 U/L 38-126 Not Available [facility] (Lab) [address] [place], [address], 11/16/2022 18:30:18 11/17/19 23 11/16/2022 COMPR EHENS SABA METAB OLIC PANEL alanine aminotransfe rase 21 U/L 0-50 Not Available [facility] (Lab) [address] [place], [address], 11/16/2022 18:30:18 11/17/1911/16/2022 COMPR EHENS SABA METAB OLIC PANEL aspartate aminotransfe rase 29 U/L 15-46 Not Available [facility] (Lab) [address] [place], [address], 11/16/2022 18:30:18 11/17/19 23 11/16/2022 COMPR EHENS SABA METAB OLIC PANEL bilirubin, total 1.20 mg/dL 0.20-1 .[address] [facility] (Lab) [address] [place], [address], 11/16/2022 18:30:18 11/17/19 23 11/16/2022 COMPR EHENS SABA METAB OLIC PANEL calcium 9.6 mg/dL 8.4-10 .[address] [facility] (Lab) [address] [place], [address], 11/16/2022 18:30:18 11/17/1911/16/2022 COMPR EHENS SABA METAB OLIC PANEL total protein 7.6 g/dL 6.3-8. [address] [facility] (Lab) [address] [place], [address], 11/16/2022 18:30:18 11/17/1911/16/2022 COMPR EHENS SABA METAB OLIC PANEL albumin 4.7 g/dL 3.0-4. 4 high Not Available [facility] (Lab) [address] [place], [address], 11/16/2022 18:30:18 11/17/19 23 11/16/2022 COMPR EHENS SABA METAB OLIC PANEL globulin 2.9 g/dL 2.6-4. [address] [facility] (Lab) [address] [place], [address], 11/16/2022 18:30:18 11/17/19 23 11/16/2022 COMPR EHENS SABA METAB OLIC PANEL A/G ratio 1.6 ratio 1.0-2. [address] [facility] (Lab) [address] [place], [address], 11/16/2022 18:30:18 11/17/19 23 11/16/2022 LIPAS E SERUM lipase 183 U/L 23-[address] [facility] (Lab) [address] [place], [address], 11/16/2022 18:30:19 11/17/19 23 11/16/2022 CBC/C OMPLE TE BLD COUNT W/DIF F white blood cells 7.7 x10'3 /uL 4.2-10 .[address] [facility] (Lab) [address] [place], [address], 11/16/2022 18:52:53 11/17/19 23 11/16/2022 CBC/C OMPLE TE BLD COUNT W/DIF F red blood cells 4.82 x10'6 /uL 4.10-5 .[address] [facility] (Lab) [address] [place], [address], 11/16/2022 18:52:53 11/17/19 23 11/16/2022 CBC/C OMPLE TE BLD COUNT W/DIF F hemoglobin 15.4 g/dL 13.2-1 7.[address] [facility] (Lab) [address] [place], [address], 11/16/2022 18:52:53 11/17/19 23 11/16/2022 CBC/C OMPLE TE BLD COUNT W/DIF F hematocrit 44.4 % 39.3-5 0.[address] [facility] (Lab) [address] [place], [address], 11/16/2022 18:52:53 11/17/19 23 11/16/2022 CBC/C OMPLE TE BLD COUNT W/DIF F mean red cell volume 92.1 fL 80.0-9 7.[address] [facility] (Lab) [address] [place], [address], 11/16/2022 18:52:53 11/17/19 23 11/16/2022 CBC/C OMPLE TE BLD COUNT W/DIF F mean red cell hemoglobin 32.0 pg 27.0-3 3.[address] [facility] (Lab) [address] [place], [address], 11/16/2022 18:52:53 11/17/19 23 11/16/2022 CBC/C OMPLE TE BLD COUNT W/DIF F mean RBC HGB concentratio n 34.7 g/dL 31.0-3 6.[address] [facility] (Lab) [address] [place], [address], 11/16/2022 18:52:53 11/17/19 23 11/16/2022 CBC/C OMPLE TE BLD COUNT W/DIF F red cell distribution width 12.2 % 11.8-1 5.[address] [facility] (Lab) [address] [place], [address], 11/16/2022 18:52:53 11/17/19 23 11/16/2022 CBC/C OMPLE TE BLD COUNT W/DIF F platelets 251 x10'3 /uL 150-40 [address] [facility] (Lab) [address] [place], [address], 11/16/2022 18:52:53 11/17/19 23 11/16/2022 CBC/C OMPLE TE BLD COUNT W/DIF F mean platelet volume 10.7 fL 9.0-12 .[address] [facility] (Lab) [address] [place], [address], 11/16/2022 18:52:53 11/17/1911/16/2022 CBC/C OMPLE TE BLD COUNT W/DIF F neutrophils 65.4 % 39.0-7 2.[address] [facility] (Lab) [address] [place], [address], 11/16/2022 18:52:53 11/17/19 23 11/16/2022 CBC/C OMPLE TE BLD COUNT W/DIF F lymphocytes 24.1 % 16.0-4 7.[address] [facility] (Lab) [address] [place], [address], 11/16/2022 18:52:53 11/17/19 23 11/16/2022 CBC/C OMPLE TE BLD COUNT W/DIF F monocytes 7.6 % 5.0-12 .0 Not Available [facility] (Lab) [address] [place], [address], 11/16/2022 18:52:53 11/17/1911/16/2022 CBC/C OMPLE TE BLD COUNT W/DIF F eosinophils 2.0 % 1.0-7. [address] [facility] (Lab) [address] [place], [address], 11/16/2022 18:52:53 11/17/1911/16/2022 CBC/C OMPLE TE BLD COUNT W/DIF F basophils 0.5 % 0.0-2. [address] [facility] (Lab) [address] [place], [address], 11/16/2022 18:52:53 11/17/19 23 11/16/2022 CBC/C OMPLE TE BLD COUNT W/DIF F immature granulocytes 0.4 % 0.00-0 .[address] [facility] (Lab) [address] [place], [address], 11/16/2022 18:52:53 11/17/19 23 11/16/2022 CBC/C OMPLE TE BLD COUNT W/DIF F neutrophils, absolute count 5.01 x10'3 /uL 1.5-8. [address] [facility] (Lab) [address] [place], [address], 11/16/2022 18:52:53 11/17/19 23 11/16/2022 CBC/C OMPLE TE BLD COUNT W/DIF F lymphocytes, absolute count 1.84 x10'3 /uL 1.07-3 .[address] [facility] (Lab) [address] [place], [address], 11/16/2022 18:52:53 11/17/19 23 11/16/2022 CBC/C OMPLE TE BLD COUNT W/DIF F monocytes, absolute count 0.58 x10'3 /uL 0.29-0 .[address] [facility] (Lab) [address] [place], [address], 11/16/2022 18:52:53 11/17/19 23 11/16/2022 CBC/C OMPLE TE BLD COUNT W/DIF F eosinophils, absolute count 0.15 x10'3 /uL 0.02-0 .[address] [facility] (Lab) [address] [place], [address], 11/16/2022 18:52:53 11/17/19 23 11/16/2022 CBC/C OMPLE TE BLD COUNT W/DIF F basophils, absolute count 0.04 x10'3 /uL 0.01-0 .[address] [facility] (Lab) [address] [place], [address], 11/16/2022 18:52:53 11/17/19 23 11/16/2022 CBC/C OMPLE TE BLD COUNT W/DIF F immature granulocytes ,absolute 0.03 x10'3 /uL 0.00-0 .[address] [facility] (Lab) [address] [place], [address], 11/16/2022 18:52:53 11/17/19 23 11/16/2022 CBC/C OMPLE TE BLD COUNT W/DIF F nucleated red blood cells 0.3 % -0 high Not Available [facility] (Lab) [address] [place], [address], 11/16/2022 18:52:53 11/17/19 23 11/16/2022 CBC/C OMPLE TE BLD COUNT W/DIF F NRBC# 0.02 x10'3 /uL Not Available [facility] (Lab) [address] [place], [address], 11/16/2022 18:52:53 11/17/19 23 11/16/2022 URINE MICRO SCOPI C EXAM/ IRIS white blood cells 0-8 /i??h pfi?? 0-[address] [facility] (Lab) [address] [place], [address], 11/16/2022 18:53:32 11/17/19 23 11/16/2022 URINE MICRO SCOPI C EXAM/ IRIS red blood cells 11-20 /i??h pfi?? 0-4 abnormal Not Available [facility] (Lab) [address] [place], [address], 11/16/2022 18:53:32 11/17/19 23 11/16/2022 URINE MICRO SCOPI C EXAM/ IRIS bacteria NONE Not Available [facility] (Lab) [address] [place], [address], 11/16/2022 18:53:32 11/17/19 23 11/16/2022 URINE MICRO SCOPI C EXAM/ IRIS mucous MANY /i??l pfi?? abnormal Not Available [facility] (Lab) [address] [place], [address], 11/16/2022 18:53:32 11/17/19 23 11/16/2022 URINE MICRO SCOPI C EXAM/ IRIS squamous epithelial NONE /i??l pfi?? Not Available [facility] (Lab) [address] [place], [address], 11/16/2022 18:53:32 11/17/19 23 11/16/2022 URINE MICRO SCOPI C EXAM/ IRIS budding yeast FEW /i??h pfi?? abnormal Not Available [facility] (Lab) [address] [place], [address], 11/16/2022 18:53:32 11/17/19 23 11/16/2022 PSA SCREE N PSA medicare screen 0.61 NG/mL 0.00-4 .[address] [facility] (Lab) [address] [place], [address], 11/16/2022 19:05:12 10/28/19 22 XR, pretty ble [facility] [address] [place], [place] [id number] Patien t Name: MATHEW KeatingRIGOBERTO Access ion #: [id number] Sex: M : 1960 7 Locati on: MO2 Attend ing Physic sadaf: RIGOBERTO PRINCE Orderi ng Physic sadaf: RIGOBERTO PRINCE Exam Date: 022 2:40 PM Exam Name: XR MANDIB LE 4V+ Admitt ing Diagno sis(es ): RADIOL OGY REPORT - FINAL EXAM: XR MANDIB LE 4V+ HISTOR Y: jaw pain 61-yea r-old male with left-s ided jaw pain, no known injury . COMPAR EDWARD: None availa ble. TECHNI QUE: Four views of the mandib le were perfor med. FINDIN GS: See below. IMPRES ELIZABETH: 1. No eviden ce of fractu re of the mandib le. 2. Dental amalga m presen t involv ing multip le teeth. No defini te acute dental cavity is identi fied here. Page 1 of 2 [facility] Pati t Name: RIGOBERTO GAVIN Access ion #: [id number] Sex: M : 1960 7 Exam Date: 2:40 PM Exam Name: XR MANDIB LE 4V+ Admitt ing Diagno sis(es ): 3. Cervic al degene rative disc diseas e and facet arthro twin, not comple tely imaged here. Create d and electr onical ly signed by: Luis catalan MD Signed Date: 9:30 PM (CT) Dictat ed by: Luis catalan MD DD: 9:30 PM (CT) DT: 9:30 PM (CT) Page 2 of [id number] [facility] (Imaging) [address] [facility], [place], [address], 10/11/2022 06:09:49 12/09/19 23 12/07/2022 CT, abdom en + pelvi s, w/ contr ast No observ ation record ed. [email or web address] Kunal Botello MD [address] [facility], [place], [address], 05/27/2023 00:27:17 10/29/19 24 10/29/2023 XR, foot, 2 view No observ ation record ed. [email or web address] [facility] [address] [place], [place], [address], 04/05/2024 17:13:00 12/19/19 24 12/17/2023 MRI, foot, w/o contr ast No observ ation record ed. [email or web address] [address], [place], [address], 04/23/2024 15:13:31 Result Notes None recorded. Problems Name Problem SNOMED Code Status Onset Date Resolution Date Notes Provider Name and Address Organization Details Recorded Time Jaw pain 499483604 Active 2021 Not Available [facility] 3 15:22:51 Anxiety 27182022 Active 2017 Not Available [facility] 3 15:22:51 Dementia 55389304 Active 2017 Not Available [facility] 3 15:22:51 Hyperlipidemi a 02566309 Active 2021 Not Available [facility] 3 15:22:51 Abdominal pain 91486386 Active 2022 Not Available [facility] 3 15:22:51 Decreased hearing 895257119 Active 2022 TOBI Light, [facility] [address] 3 12:23:51 Problem Notes None recorded. Procedures Surgical History Date Name Laterality Status Provider Name and Address Organization Details Recorded Time 11/17/19 Medicare Wellness CPT Code, subsequent completed Tila Marcelo RN [facility] [address] 11/16/2022 15:39:30 Cyst Removal completed Not Available [facility] 10/11/2022 05:56:33 reattachment of finger completed Not Available [facility] 10/11/2022 05:56:33 Imaging Results Imaging Date Name Status LastModified by Organiz ation Details LastModified Time 10/27/2021 XR, mandible completed [id number] [facility] (Imaging) [address], [place], [address], 10/11/2022 06:09:49 12/07/2022 CT, abdomen + pelvis, w/ contrast completed [email or web address] Kunal Botello MD [address] [facility], [place], [address], 05/27/2023 00:27:17 10/29/2023 XR, foot, 2 view completed [email or web address] [facility] [address] [place], [place], [address], 04/05/2024 17:13:00 12/17/2023 MRI, foot, w/o contrast completed [email or web address] [facility] [address] [facility], [place], [address], 04/23/2024 15:13:31 Procedure Notes None recorded. Medical Equipment None Reported. Allergies No known drug allergies Medications Name Sig Start Date Stop Date Status Note LastModified by Organization Details LastModified Time Prescript ion - Renewal active Not Available Not Available Not Available quetiapin e 25 mg tablet TAKE 1/2 TABLET IN EVENING FOR AGITATIO N, MAY TAKE ADDITION AL 1/2 TAB IN AM IF AGITATIO N PERSISTS active Not Available Not Available No t Available amoxicill in 500 mg capsule TAKE 1 CAPSULE BY MOUTH EVERY 8 HOURS active Not Available Not Available No t Available buspirone 5 mg tablet TAKE 1 TABLET BY MOUTH TWICE A DAY active Not Available Not Available No t Available prednison e 10 mg tablet 10/27 completed Not Available Not Available Not Available donepezil 5 mg tablet 12/20 completed Not Available Not Available Not Available atorvasta tin 10 mg tablet TAKE 1 TABLET EVERY DAY 10/27 completed pt hasnt take this in a long time due to running out. Not Available Not Available Not Available donepezil 10 mg tablet TAKE 1 TABLET (10 MG TOTAL) BY MOUTH DAILY AFTER BREAKFAS T active Not Available Not Available No t Available Elidel 1 % topical cream 08/26 completed Not Available Not Available Not Available prednison e 20 mg tablet Take 2 tablets every day by oral route. active Not Available Not Available No t Available clobetaso l 0.05 % topical cream 05/18 completed Not Available Not Available Not Available permethri n 5 % topical cream use as directed as manufact uring directio n active Not Available Not Available No t Available fexofenad ine 180 mg tablet TAKE 1 TAB ONCE DAILY X 1MONTH 10/27 completed Not Available Not Available Not Available triamcino lone acetonide 0.1 % topical cream 05/18 completed Not Available Not Available Not Available terbinafi ne HCl 250 mg tablet TAKE 1 TABLET BY MOUTH EVERY DAY 10/27 completed Not Available Not Available Not Available amoxicill in 875 mg tablet TAKE 1 TABLET BY MOUTH TWICE A DAY FOR 10 DAYS 05/18 completed Not Available Not Available Not Available folic acid 1 mg tablet TAKE 1 TABLET BY MOUTH EVERY DAY 12/20 completed Not Available Not Available Not Available Vitamin B-1 100 mg tablet TAKE 1 TABLET BY MOUTH EVERY DAY 12/20 completed Not Available Not Available Not Available hydroxyzi ne HCl 10 mg tablet 10/27 completed Not Available Not Available Not Available Spectravi te Senior tablet TAKE 1 TABLET BY MOUTH EVERY DAY 12/20 completed Not Available Not Available Not Available escitalop cate 10 mg tablet TAKE 1 TABLET (10 MG TOTAL) BY MOUTH DAILY. 08/26 completed Not Available Not Available Not Available escitalop cate 20 mg tablet active Not Available Not Available Not Available memantine 10 mg tablet active Not Available Not Available Not Available memantine 5 mg-10 mg tablets in a dose pack USE DIRECTED FOR FIRST MONTH 05/18 completed Not Available Not Available Not Available Vitals Date Recorded Body mass index (BMI) Body height Heart rate Body temperature Body weight Systolic blood pressure Diastolic blood pressure Provider Name and Address Organization Details Last Updated DateTime 1 29.6 kg/m2 168.91 cm 78 /min 98.1 [degF] 94341.1 8 g 122 mm[Hg] 60 mm[Hg] Not Available [facility] 3 06:02:00 Date Recorded Body mass index (BMI) Body height Heart rate Body temperature Body weight Systolic blood pressure Diastolic blood pressure Provider Name and Address Organization Details Last Updated DateTime 2 29.3 kg/m2 168.91 cm 74 /min 97.6 [degF] 89938 g 112 mm[Hg] 70 mm[Hg] Not Available [facility] 3 06:02:00 Date Recorded Body mass index (BMI) Body height Heart rate Body temperature Body weight Systolic blood pressure Diastolic blood pressure Provider Name and Address Organization Details Last Updated DateTime 2 30 kg/m2 168.91 cm 78 /min 99.6 [degF] 02661.9 6 g 120 mm[Hg] 74 mm[Hg] Not Available [facility] 3 06:02:00 Date Recorded Body height Body mass index (BMI) Body weight Body temperature Heart rate Systolic blood pressure Diastolic blood pressure Provider Name and Address Organization Details Last Updated DateTime 3 168.91 cm 27.5 kg/m2 86818.4 8 g 97.8 [degF] 87 /min 128 mm[Hg] 70 mm[Hg] EDITH Cardona [employer] [facility] 3 15:15:20 Date Recorded Body height Body mass index (BMI) Body weight Body temperature Heart rate Systolic blood pressure Diastolic blood pressure Provider Name and Address Organization Details Last Updated DateTime 3 168.91 cm 27.7 kg/m2 58016.0 7 g 98.4 [degF] 83 /min 120 mm[Hg] 60 mm[Hg] EDITH Cardona [employer]h [employer] [facility] 3 15:36:05 Date Recorded Body height Body mass index (BMI) Body weight Body temperature Heart rate Systolic blood pressure Diastolic blood pressure Provider Name and Address Organization Details Last Updated DateTime 3 168.91 cm 27.2 kg/m2 42075.3 g 97.5 [degF] 74 /min 114 mm[Hg] 78 mm[Hg] Danielle London HERIBERTOParmjit [employer] [address] 3 14:11:47 Social History Question Answer Notes LastModified by Organization Details LastModified Time Tobacco Smoking Status Former Smoker quit age 27 Not Available [facility] 10/11/2022 05:56:05 Do You Have An Advance Directive? Yes [id number] Information not available 10/11/2022 What Is Your Level Of Alcohol Consumption? None [id number] Information not available 10/11/2022 Do You Wear A Helmet When Biking? No [id number] [id number] Information not available 10/11/2022 What Is Your Level Of Caffeine Consumption? Moderate [id number] Information not available 10/11/2022 How Much Tobacco Do You Chew? None [id number] Information not available 10/11/2022 In The 14 Days Before Symptom Onset, Have You Had Close Contact With A Laboratory-confi rmed COVID-19 While That Case Was Ill? No [id number] Information not available 10/11/2022 In The 14 Days Before Symptom Onset, Have You Had Close Contact With A Person Who Is Under Investigation For COVID-19 While That Person Was Ill? No [id number] Information not available 10/11/2022 What Type Of Diet Are You Following? REGULAR [id number] [id number] Information not available 10/11/2022 Which Illicit Or Recreational Drugs Have You Used? None [id number] Information not available 10/11/2022 Do You Or Have You Ever Used E-cigarettes Or Vape? Never Used Electronic Cigarettes [id number].[id number] Information not available 10/11/2022 What Is Your Occupation? Retired [id number].0301 [id number] Information not available 10/11/2022 Have There Been Any Changes To Your Family Or Social Situation? No [id number].[id number] [id number] Information not available 10/11/2022 When Did You Quit Smoking? 16+yearssincelastci garette [id number].0301 [id number] Information not available 10/11/2022 Are There Any Guns Present In Your Home? Yes Kept Locked In Safe [id number] [id number] Information not available 10/11/2022 Do You Use Insect Repellent Routinely? No Information not available 11/16/2022 Where Do You Live? Single[place]House MIGRATION.[id number] [id number] Information not available 10/11/2022 Presence Of Domestic Violence No Information not available 11/16/2022 Guns Present In The Home? Yes Information not available 11/16/2022 Are You Able To Care For Yourself? Yes Information not available 11/16/2022 Are You Blind Or Do Yo Have Difficulty Seeing? No Information not available 11/16/2022 Are You Deaf Or Do You Have Serious Difficulty Hearing? No Information not available 11/16/2022 General Stress Level? Low Information not available 11/16/2022 Live Alone Of With Others? 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 07/24/2023 [email or web address] Information not available 07/24/2023 Do You Have Any Pets? No MIGRATION.[id number] [id number] Information not available 10/11/2022 What Is Your Relationship Status? MIGRATION.[id number] [id number] Information not available 10/11/2022 Do You Use Your Seat Belt Or Car Seat Routinely? Yes [email or web address].[id number] [id number] Information not available 10/11/2022 Do You Have Smoke And Carbon Monoxide Detectors In Your Home? Yes [email or web address].[id number] [id number] Information not available 10/11/2022 Are You Passively Exposed To Smoke? No MIGRATION.0301 [id number] Information not available 10/11/2022 Do You Or Have You Ever Used Smokeless Tobacco? Never Used Smokeless Tobacco MIGRATION.[id number] [id number] Information not available 10/11/2022 Are There Any Smokers In Your House? No MIGRATION.0301 [id number] Information not available 10/11/2022 How Much Tobacco Do You Smoke? No MIGRATION.0301 [id number] Information not available 10/11/2022 Do You Feel Stressed (tense, Restless, Nervous, Or Anxious, Or Unable To Sleep At Night)? [id number] MIGRATION.0301 [id number] Information not available 10/11/2022 Do You Use Any Illicit Or Recreational Drugs? No MIGRATION.0301 [id number] Information not available 10/11/2022 Do You Use Sunscreen Routinely? No MIGRATION.0301 [id number] Information not available 10/11/2022 Has Tobacco Cessation Counseling Been Provided? No Information not available 11/16/2022 Have You Recently Traveled Abroad? No MIGRATION.0301 [id number] Information not available 10/11/2022 Do You Have Any Dietary Restrictions? No MIGRATION.0301 [id number] Information not available 10/11/2022 Do You Or Have You Ever Used Any Other Forms Of Tobacco Or Nicotine? No MIGRATION.0301 [id number] Information not available 10/11/2022 Sex: Male Functional Status Question Answer Note LastModified by Organizat ion Details LastModified Time What is your exercise level? Occasional Information not available 11/16/2022 Mental Status None recorded. Family History Relationship Description Onset Age of this Age Resolved Age Notes LastModified by Organization Details LastModified Time Mother Diabetes mellitus [email or web address] [id number] Not available 10/11/2022 05:56:39 Father Alzheimer's disease [id number].432 [id number] Not available 10/11/2022 05:56:39 Father Heart disease MIGRATION.711 [id number] Not available 10/11/2022 05:56:39 Maternal Grandmother Parkinson's disease MIGRATION.563 [id number] Not available 10/11/2022 05:56:39 Son Cardiomyopat hy 26 MIGRATION.452 [id number] Not available 10/11/2022 05:56:39 Brother Lyme disease 64 MIGRATION.0 30 [id number] Not available 10/11/2022 05:56:39 Brother Diffuse Lewy body disease 64 MIGRATION.076 [id number] Not available 10/11/2022 05:56:39 Medical History Condition Response NERVE DISEASE N BLINDNESS N RHEUMATIC FEVER N KIDNEY STONES N BLADDER PROBLEMS N MRSA N OTHER # 1 N POLIO N LUNG DISEASE/DISORDER N COPD N RADIATION / CHEMOTHERAPY N Other # 2 N BLOOD DISEASES N EAR OR HEARING PROBLEMS N MUMPS N DEPRESSION (INCLUDING POST ) N BOWEL PROBLEMS N STROKE/TIA N ULCERS N BENIGN PROSTATIC HYPERPLASIA N MEASLES N MYOCARDIAL INFARCTION N OBESITY N GERD/NAUSEA N ANEURYSM N URINARY/BLADDER/KIDNEY PROBLEMS N CORONARY ARTERY DISEASE (CAD) N ADDICTION CONCERNS N Impotence N ENDOMETRIOSIS N USE OF BLOOD THINNERS N SKIN PROBLEMS Y GASTROINTESTINAL DISORDER N PERIPHERAL VASCULAR DISEASE N MUSCLE,JOINT OR BONE PROBLEMS N GASTROINTESTINAL BLEEDING N BLOOD CLOTS N ASTHMA N CATARACTS N ERECTILE DYSFUNCTION N VARICOSITIES N GI PROBLEMS N Low Testosterone N INFERTILITY N AIDS/HIV N CHEMOTHERAPY / RADIATION N LIVER DISEASE N MALE HYPOGONADISM N HYPERTENSION N Deficiency N TOURETTE'S N ANXIETY DISORDER Y BLOOD TRANSFUSION N ANEMIA/BLOOD DISORDER N CHRONIC EAR INFECTIONS N BRONCHITIS N TUBERCULOSIS N GLAUCOMA N FOOT PROBLEM N DIVERTICULITIS N SLEEP APNEA N CHICKENPOX N INFECTIOUS DISEASE N PROSTATE N HEART ARRHYTHMIA N INSOMNIA N HIGH CHOLESTEROL / HYPERLIPIDEMIA Y EYE PROBLEMS N HYPERTHYROIDISM N EDEMA N CHRONIC PAIN SYNDROME N HYPOTHYROIDISM N CAROTID BLOCKAGE N CONSTIPATION N BACK / NECK PROBLEMS N HAVE YOU BEEN HOSPITALIZED OR SEEN IN [facility] IN THE PAST YEAR ? N ATHEROSCLEROSIS N BREAST PROBLEMS N DIALYSIS N ECZEMA N OSTEOPOROSIS N ARTHRITIS N APPENDICITIS N DIABETES, TYPE N BAD TEETH N ENT N HEARTBURN / REFLUX N AUTISM SPECTRUM DISORDER (ASD) N HEPATITIS / LIVER DISEASE N GOUT Y SLEEP DISORDER N ALZHEIMER'S DISEASE N Brain Problems N DEMENTIA Y HERPES N SEIZURES/EPILEPSY N HEADACHES/MIGRAINES N VASCULAR DISEASE N PACEMAKER N Blood Disorder N DIZZINESS N HEART DISEASE/HEART PROBLEMS N KIDNEY DISEASE N MULTIPLE SCLEROSIS N CANCER: SPECIFY N CARDIAC ARRHYTHMIA N ATRIAL FIBRILLATION N Gall Stones N PULMONARY EMBOLISM N AUTOIMMUNE DISEASE N Immunizations Vaccine Type Date Status Note Provider Nam e and Address Organization Details Recorded Time COVID-19, mRNA, LNP-S, PF, 100 mcg/0.5mL dose or 50 mcg/0.25mL dose 1 completed Not Available [facility] 01/11/2023 15:22:51 COVID-19, mRNA, LNP-S, PF, 100 mcg/0.5mL dose or 50 mcg/0.25mL dose 1 completed Not Available [facility] 01/11/2023 15:22:51 Influenza, split virus, trivalent, preservative 1 completed Not Available [facility] 01/11/2023 15:22:51 Influenza, split virus, quadrivalent, PF 2 completed Not Available [facility] 01/11/2023 15:22:51 Influenza, split virus, quadrivalent, PF 8 completed Not Available [facility] 01/11/2023 15:22:51 Past Encounters Encounter ID Performer Location Encounter Start Date Encounter Closed Date Diagnosis/Indication Diagnosis SNOMED-CT Code Diagnosis ICD10 Code [id number] [facility] [place] [address] [place] [address] [address] 02/24/2021 00:00:00 02/24/2021 21:10:[id number] [facility] [place] [address] [place] [address] [address] 10/27/2021 00:00:00 11/13/2021 22:13:[id number] [facility] [place] [address] [facility] [address] [address] 05/18/2022 00:00:00 05/18/2022 21:34:[id number] [facility] [place] [address] [facility] [place] [address] 11/16/2022 14:55:29 11/16/2022 16:14:43 Adult health examination 226058355 Z00.00 Screening for disorder 887979086 Z13.9 Hyperlipidemia 65885612 E78.5 Abdominal pain 97068732 R10.9 Screening for malignant neoplasm of prostate 149545389 Z12.5 Dementia 39679319 F03.90 [id number] Gage Prince MD [facility] Med [place] [address] [facility] [place] [address] 07/24/2023 13:57:01 07/24/2023 14:47:56 Hyperlipidemia 21650363 E78.5 Long-term drug therapy 616312792 Z79.899 Dementia 64511919 F03.90 Anxiety 60481700 F41.9 Health Concerns Section Related Observation LastModified by Organization Detai ls LastModified Time None Recorded Concern Status LastModified by Organization Details LastModified Time None Recorded Advance Directives Directive Y: Payers Encounter Date Sequence Insurance Name Policy Number Policy Schilling Covered Member ID Schilling Member ID Guarantor Name 11/16/2022 1 [employer] - GOLD PLUS (MEDICARE REPLACEMENT HMO) 0000 Gage Stephenson [id number] Gage Stephenson 07/24/2023 1 [employer] - [employer]US (MEDICARE REPLACEMENT HMO) 0000 Gage Stephenson [id number] Gage Stephenson Notes Date Note Type Note Provider Name and Address Organization Details Recorded Time 11/16/2022 text/html Dementia behavio r okayVague abdominal pain he can not really quantitate it sometimes right upper quadrant sometimes right lower quadrant in location [id number] complains about a lot according to wifeHyperlipidemia we have been treating him conservatively Gage Prince MD [address] [place] [address], [facility] [address], [place], [address], [facility] 11/17/2022 14:11:48 07/24/2023 text/html Dementia behavio r okayVague abdominal pain he can not really quantitate it sometimes right upper quadrant sometimes right lower quadrant in location [id number] complains about a lot according to this has resolvedHyperlipidem ia we have been treating him conservatively Gage Prince MD [address] [facility], [facility] [address], [place], [address], [facility] [employer] [facility] 07/25/2023 18:17:30
--- OUTSIDE RECORDS SUMMARY | 2024-08-13 04:56 | XMS_ITS | Encounter Summary ---
Author Organization [facility] Healthcare Address [address] [place] [address] Care Team Providers Care Static Balancer Name Role Phone Ganesh Prince MD Primary Care Provider [phone] Encounter Details Date Type Department Care Team (Late st Contact Info) Description 12/06/2022 Telephone [facility] [address] [place] [id number] Zara Blackburn RT Social History Tobacco Use Types Packs/Day Years Used Date Smoking Tobacco: Former Alcohol Use Standard Drinks/Week Comments Yes 0 (1 standard drink = 0.6 oz pur e alcohol) Sex and Gender Information Value Date Recorded Sex Assigned at Not on file 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
--- OUTSIDE RECORDS SUMMARY | 2024-08-13 04:56 | XMS_ITS | Encounter Summary ---
Author Organization [facility] Address [address] [address] Care Team Providers Care Inspecting Engineer Name Role Phone Ganesh Prince MD Primary Care Provider [phone] Reason for Referral * ENT (Routine) - Closed Specialty Diagnoses / Procedures Referred By Samira yu Referred To Contact Diagnoses Fullness in ear, unspecified laterality Hearing loss of left ear, unspecified hearing loss type Bilateral impacted cerumen Procedures Ear Cerumen Removal Guadalupe Em DO Phone: tel: fax: [facility] Referral ID Status Reason Start Date Expiration Date Visits Re quested Visits Authorized [id number] Closed 11/20/2019 05/31/2021 1 1 Reason for Visit * Reason Comments Ear Problem Hearing Loss 2 wk hx. * Consultation (Routine) - Closed Specialty Diagnoses / Procedures Referred By Samira yu Referred To Contact Otolaryngology Diagnoses Fullness in ear, unspecified laterality Ganesh Prince MD Phone: tel: fax: Guadalupe Em DO [address] [place] [address] DR JUDY Kaplan [address] [address] Phone: tel: fax: Referral ID Status Reason Start Date Expiration Date V isits Requested Visits Authorized [id number] Closed Specialty Services Required 11/20/2019 05/31/2021 12 12 Encounter Details Date Type Department Care Team (Late st Contact Info) Description 11/20/2019 10:30 AM CDT Office Visit [facility] [address] [facility] [address] [place] [address] Guadalupe Em DO [address] [place] [address] [address] JUDY [address] [place] [address] Hearing loss of left ear, unspecified hearing loss type (Primary Dx); Fullness in ear, unspecified laterality; Bilateral impacted cerumen Social History Tobacco Use Types Packs/Day Years Used Date Smoking Tobacco: Former Alcohol Use Standard Drinks/Week Comments Yes 0 (1 standard drink = 0.6 oz pur e alcohol) Sex and Gender Information Value Date Recorded Sex Assigned at Not on file 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 Gender Identity Not on file Sexual Orientation Not on file documented as of this encounter Last Filed Vital Signs Vital Sign Reading Time Taken Comments Blood Pressure 113/80 11/20/2019 10:26 AM CDT Pulse 87 11/20/2019 10:26 AM CDT Temperature 36.8 ??C (98.2 ??F) 11/20/2019 10:26 AM C DT Respiratory Rate - - Oxygen Saturation - - Inhaled Oxygen Concentration - - Weight 83 kg (183 lb) 11/20/2019 10:26 AM CDT Height 167.6 cm (5' 6 ) 11/20/2019 10:26 AM CDT Body Mass Index 29.54 11/20/2019 10:26 AM CDT documented in this encounter Patient Instructions * Patient Instructions* Guadalupe Em DO - 11/20/2019 10:30 AM CDT Avoid ear cleaning techniques Avoid water to ears Call if hearing still feels muffled after the weekend for hearing test documented in this encounter Progress Notes * Gudaalupe Em DO - 11/20/2019 10:30 AM CDTAssociated Order(s): Ear Cerumen Removal Post-Procedure Diagnose(s): Fullness in ear, unspecified laterality; Hearing loss of left ear, unspecified hearing loss type; Bilateral impacted cerumen ENT Consult Reason for Consult: left ear plugged Requesting Provider: Ganesh Prince MD SUBJECTIVE: Patient is a 59 y.o. male with chief complaint of left ear plugged. HPI: Ganesh reported location of complaint was left ear. This compliant quality was reported as constant and has a severity of moderate. The duration of this complaint was the last 2 weeks. Onset of this problems was 2 weeks and was associated with ear cleaning with Q- tips, he denied ear surgery, no ear drainage, no upper respiratory infection, no head injury at onset. FH: Negative for Hearing loss Past Medical History: Diagnosis Date ??? Alzheimer's [...] Hyperlipidemia Hyperlipidemia ??? Psoriasis psoriasis ??? Vertigo Patient Active Problem List Diagnosis ??? Sleep apnea ??? Multiple-type hyperlipidemia ??? Vitamin D deficiency ??? Gout ??? Healthcare maintenance ??? Medication management ??? 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 JEANETTE (generalized anxiety disorder) ??? Anxiety and depression ??? 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 disturbance (CMS/HCC) ??? Hearing loss of left ear ??? Bilateral impacted cerumen Past Surgical History: Procedure Laterality Date ??? SHOULDER SURGERY L shoulder surgery Social History Tobacco Use ??? Smoking status: Former Smoker Substance Use Topics ??? Alcohol use: Yes ??? Drug use: Not on file Family History Problem Relation Age of Onset [...] of Gout; ??? Alzheimer's disease Mother's Sister Current Outpatient Medications on File Prior to Visit Medication Sig Dispense Refill ??? atorvastatin (LIPITOR) 10 mg tablet Take 10 mg by mouth daily. 3 ??? donepezil (ARICEPT) 10 mg tablet TAKE 1 TABLET BY MOUTH EVERY DAY WITH BREAKFAST 90 tablet 3 ??? escitalopram (LEXAPRO) 20 mg tablet Take 1 tablet (20 mg total) by mouth daily (Patient not taking: Reported on 11/20/2019) 90 tablet 3 ??? folic acid (FOLVITE) 1 mg tablet Take 1,000 mcg by mouth daily. 0 ??? meclizine (ANTIVERT) 12.5 mg tablet Take 12.5 mg by mouth 3 (three) times a day as needed. ??? SPECTRAVITE SENIOR tablet Take 1 tablet by mouth daily. 0 No current facility-administered medications on file prior to visit. No Known Allergies OBJECTIVE: Vitals BP 113/80 (BP Location: Left arm, Patient Position: Sitting) Pulse 87 Temp 36.8 ??C (98.2 ??F) (Oral) Ht 167.6 cm (5' 6 ) Wt 83 kg (183 lb) BMI 29.54 kg/m?? Review of Systems Constitutional: Negative. Negative for chills, fatigue and fever. HENT: Positive for ear pain and hearing loss. Negative for congestion, ear discharge, nosebleeds, sinus pressure, sore throat, tinnitus, trouble swallowing and voice change. Eyes: Negative. Negative for pain and discharge. Respiratory: Negative for apnea, cough, choking, shortness of breath, wheezing and stridor. Cardiovascular: Negative for chest pain, palpitations and leg swelling. Gastrointestinal: Negative for abdominal pain, constipation, nausea and vomiting. Negative for Heartburn, trouble swallowing foods or liquids Endocrine: Negative. Negative for cold intolerance and heat intolerance. Musculoskeletal: Negative. Negative for arthralgias, joint swelling, myalgias, neck pain and neck stiffness. Skin: Negative. Negative for color change, rash and wound. Negative for new skin lesions Allergic/Immunologic: Negative. Negative for environmental allergies and food allergies. Neurological: Negative. Negative for dizziness, syncope, speech difficulty, light-headedness and headaches. Hematological: Negative. Negative for adenopathy. Does not bruise/bleed easily. Psychiatric/Behavioral: Negative for agitation, behavioral problems and dysphoric mood. The patientis not nervous/anxious. Physical Exam Constitutional: He is oriented to person, place, and time. He appears well- developed. He is cooperative. No distress. HENT: Head: Normocephalic and atraumatic. Right Ear: External ear normal. Left Ear: External ear normal. Nose: Nose normal. No mucosal edema, rhinorrhea, sinus tenderness or nasal deformity. Mouth/Throat: Uvula is midline, oropharynx is clear and moist and mucous membranes are normal. No oral lesions. Right ear: Cerumen impaction completely obstructing view of tympanic membrane Left ear: Cerumen impaction completely obstructing view of tympanic membrane Eyes: Pupils are equal, round, and reactive to light. Conjunctivae and lids are normal. Neck: Trachea normal and full passive range of motion without pain. Neck supple. Cardiovascular: No edema, no JVD, normal distal perfusion Pulmonary/Chest: Effort normal. No respiratory distress. No cough, wheezing or stridor Abdominal: Normal appearance. Musculoskeletal: Normal range of motion. Left shoulder: Normal. Lymphadenopathy: He has no cervical adenopathy. Neurological: He is alert and oriented to person, place, and time. No cranial nerve deficit. Coordination and gait normal. Skin: Skin is warm and dry. No rash noted. Nails show no clubbing. Psychiatric: His speech is normal and behavior is normal. Ear Cerumen Removal Date/Time: 11/20/2019 11:16 AM Performed by: Guadalupe Em DO Authorized by: Guadalupe Em DO Consent Given by: Patient Verbal consent obtained: Yes Written consent obtained: No Risks, alternatives, and patient questions discussed: Yes Preparation: Patient was prepped using a clean technique Location: Bilateral L ear cerumen impacted?: Yes L ear method of removal: Instrumentation and magnification L ear instrumentation: Curette L ear magnification: Operating microscope R ear cerumen impacted?: Yes R ear method of removal: Instrumentation and magnification R ear instrumentation: Curette R ear magnification: Operating microscope Inspection: TM intact Hearing quality: Improved Patient tolerance: Patient tolerated the procedure well with no immediate complications Assessment & Plan: Diagnoses and all orders for this visit: Hearing loss of left ear, unspecified hearing loss type (Primary) Assessment & Plan: Avoid ear cleaning techniques Avoid water to ears Call if hearing still feels muffled after the weekend for hearing test Orders: - Ear Cerumen Removal Fullness in ear, unspecified laterality - Ambulatory referral to ENT - Ear Cerumen Removal Bilateral impacted cerumen Assessment & Plan: Avoid ear cleaning techniques Avoid water to ears Call if hearing still feels muffled after the weekend for hearing test Orders: - Ear Cerumen Removal Guadalupe Em DO documented in this encounter Miscellaneous Notes * Assessment & Plan Note - Guadalupe Em DO - 11/20/2019 10:54 AM CDT Associated Problem(s): Bilateral impacted cerumen Avoid ear cleaning techniques Avoid water to ears Call if hearing still feels muffled after the weekend for hearing test * Assessment & Plan Note - Guadalupe Em DO - 11/20/2019 10:53 AM CDT Associated Problem(s): Hearing loss of left ear Avoid ear cleaning techniques Avoid water to ears Call if hearing still feels muffled after the weekend for hearing test documented in this encounter Plan of Treatment Not on file documented as of this encounter Procedures Procedure Name Priority Date/Time Associated Diagnosis Comments NC REMOVAL IMPACTED CERUMEN INSTRUMENTATION UNILAT Routine 11/20/2019 10:30 AM CDT Fullness in ear, unspecified laterality Hearing loss of left ear, unspecified hearing loss type Bilateral impacted cerumen documented in this encounter Results * NC REMOVAL IMPACTED CERUMEN INSTRUMENTATION UNILAT (11/20/2019 10:30 AM CDT) Narrative Guadalupe Em, DO - 11/20/2019 10:30 AM CDT Guadalupe Em, DO ? 11/20/2019 12:57 PM Ear Cerumen Removal Date/Time: 11/20/2019 11:16 AM Performed by: Guadalupe mE, DO Authorized by: Guadalupe Em, DO Consent Given by: ??Patient Verbal consent obtained: Yes ?? Written consent obtained: No ?? Risks, alternatives, and patient questions discussed: Yes ?? Preparation: Patient was prepped using a clean technique ?? Location: ??Bilateral L ear cerumen impacted?: Yes ?? L ear method of removal: ??Instrumentation and magnification L ear instrumentation: ??Curette L ear magnification: ??Operating microscope R ear cerumen impacted?: Yes ?? R ear method of removal: ??Instrumentation and magnification R ear instrumentation: ??Curette R ear magnification: ??Operating microscope Inspection: ??TM intact Hearing quality: ??Improved Patient tolerance: ??Patient tolerated the procedure well with no immediate complications Guadalupe EmKelsey Manav DO IN CLINIC/BEDSIDE ORDERABLES Final Result documented in this encounter Visit Diagnoses Diagnosis Hearing loss of left ear, unspecified hearing loss type- Primary Fullness in ear, unspecified laterality Bilateral impacted cerumen Impacted cerumen documented in this encounter Orders Outpatient Referral Count Last Ordered Date Fir st Ordered Date AMB REFERRAL TO ENT 1 11/20/2019 documented in this encounter Care Teams Inspecting Engineer Relationship Specialty Start Date End Date Ganesh rPince MD PCP - General 11/28/17 documented as of this encounter
--- OUTSIDE RECORDS SUMMARY | 2024-08-13 04:56 | XMS_ITS | Encounter Summary ---
Author Organization [facility] Address [address] [place] [address] Phone Care Team Providers Care Machine Bobbin Winder Name Role Phone Ganesh Prince MD Primary Care Provider + [phone] Reason for Visit * Reason Comments Follow-up Encounter Details Date Type Department Care Team (Late st Contact Info) Description 01/23/2024 10:30 AM CDT Office Visit [facility] [address] 6th [address] [place] [address] Dianne Worthington NP [address] [place] [address] 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); Anxiety and depression Social History Tobacco Use Types Packs/Day Years Used Date Smoking Tobacco: Former Alcohol Use Standard Drinks/Week Comments Yes 0 (1 standard drink = 0.6 oz pur e alcohol) Sex and Gender Information Value Date Recorded Sex Assigned at Not on file Legal Sex Male 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 Gender Identity Not on file Sexual Orientation Not on file documented as of this encounter Last Filed Vital Signs Vital Sign Reading Time Taken Comments Blood Pressure 122/79 01/23/2024 10:28 AM CDT Pulse 75 01/23/2024 10:28 AM CDT Temperature 37.4 ??C (99.4 ??F) 01/23/2024 10:28 AM C DT Respiratory Rate - - Oxygen Saturation 99% 01/23/2024 10:28 AM CDT Inhaled Oxygen Concentration - - Weight 73.3 kg (161 lb 8 oz) 01/23/2024 10:28 AM CDT Height 167.6 cm (5' 5.98 ) 01/23/2024 10:28 AM Soy TOMAS Body Mass Index 26.08 01/23/2024 10:28 AM CDT documented in this encounter Patient Instructions * Patient Instructions* Dianne Worthington NP - 01/23/2024 10:30 AM CDT [facility] After Visit Summary SHY Watson (Nurse Practitioner) Thank you for coming to the [facility]. We appreciate this opportunity to participatein your care. We have reviewed the concerns about your memory and thinking. Memory and thinking test scores today: MMSE (Mini Mental Status Exam): Mini-Mental Total Score ((out of 30): 10 A perfect score on this test is 30. A score of of between 27-30 is considered normal. A score of 24-26 is considered mildly impaired. A score of 20-23 is impaired. Scores below 20 show moderate impairment and 10 or below showssevere impairment. Diagnosis: We think that the changes you and your family have observed in your memory and thinking are most likely caused by: Alzheimer's dementia Medications: We increased your quetiapine/Seroquel to 75 mg three times daily (1.5 tablets) for agitation Additional Recommendations We should make sure you do not have a Urinary Tract Infection as this can exacerbate behavioral issues. We recommend you consider placement, support groups or counseling. Additional Resources and Support: Alzheimer's Association [facility] Chapter: ; (toll free); http://www.alz.org, The Alzheimer's Association 05/03 Helpline provides reliable information and support to all those who need assistance. Call toll-free anytime day or night at . Memory Long Term Solution: [place] is to extend and improve quality time at home for people living with dementia and their care partners, or Memorycarehs.org, They provide family certified caregiver support, education and skills. Memory Long Term Solutions will make it easier for you to enhance your skills and adapt your home setting to meet the ever-changing demands of caregiving. Silvia Moreas R.N. Vice President Research Alzheimer's Association [address] [place] [address] Toll Free: [phone] ext [phone] Email: The best way to reach our team is via My Chart, this is a secure way for us to communicate about your health care. Please call The My Chart Support Desk: [phone] for help with My Chart, or [phone] to obtain a link for access. We offer in person and telemedicine (virtual) visits. Please let us know your preference when scheduling. documented in this encounter Ordered Prescriptions Prescription Sig Dispense Quantity Refills Last Filled Start Date End Date QUEtiapine (SEROquel) 50 mg tabletIndications: Feeling Agitated Take 1.5 tablets (75 mg total) by mouth 3 (three) times a day 45 tablet 6 01/23/2024 documented in this encounter Progress Notes * Dianne Worthington NP - 01/23/2024 10:30 AM CDT [facility] OFFICE VISIT Patient Name: GANESH MACIEL Chief Complaint: Memory and thinking difficulty HISTORY OF PRESENT ILLNESS: Mr. Maciel is a 63 y.o. gentleman who comes to the [facility] today for further evaluation of memory and thinking problems. He is in generally good health. Collateral Source (CS): Mirian Dementia History: Last visit with LESLI Padilla 10/2023, Mini Mental State Exam 08/11, clinical dementia ratin sum of box scores 13, onset 2013, diagnosis AD, increased quetiapine/Seroquel to 25 mg BID foragitation, continue donepezil/Aricept 10 mg daily, buspirone 5 mg BID and Lexapro/escitalopram 20 mg daily, stop Namenda/memantine (taking subtherapeutic dose). Quetiapine/Seroquel increased 01/09/2024 to 50 mg TID for agitation. Today's Visit: He is declining, he looks at and asks her who she is. He is very agitated all the time, he wants to leave all the time, has now installed door locks. He wants to go home to the home he grew up in. Most of the time he sleeps through the night. From the minute he gets up he is pacing. Help iscoming in for a few hours two days per week. She looked at [employer] [facility] program and didn't think he would do well. He went for a foot x ray, he became agitated and started pounding his fist on the machine. He cannot be taken out any longer. Review of Systems Constitutional: Negative. HENT: Negative. Eyes: Negative. Respiratory: Negative. Cardiovascular: Negative. Gastrointestinal: Negative. Genitourinary: Negative. Musculoskeletal: Negative. Skin: Negative. Neurological: Negative. Endo/Heme/Allergies: Negative. Psychiatric/Behavioral: Positive for memory loss. ACTIVE PROBLEMS Patient Active Problem List Diagnosis Sleep apnea Multiple-type hyperlipidemia Vitamin D deficiency Gout Healthcare maintenance Anxiety and depression 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 disturbance (HCC) Hearing loss of left ear Bilateral impacted cerumen ALLERGIES No Known Allergies MEDICATIONS Current Outpatient Medications: donepeziL (ARICEPT) 10 mg tablet, Take 1 tablet (10 mg total) by mouth daily after breakfast, Disp:90 tablet, Rfl: 3 LORazepam (ATIVAN) 0.5 mg tablet, Take 1 tablet (0.5 mg total) by mouth 2 (two) times a day as needed, Disp: , Rfl: memantine (NAMENDA) 10 mg tablet, TAKE 1 TABLET EVERY DAY, Disp: 90 tablet, Rfl: 3 QUEtiapine (SEROquel) 50 mg tablet, Take 1 tablet (50 mg total) by mouth 3 (three) times a day, Disp: 90 tablet, Rfl: 3 escitalopram (LEXAPRO) 20 mg [...] on file Medical Records Review: I reviewed [facility] notes and prior Neuropsychometric testing scores. PHYSICAL EXAM BP 122/79 (BP Location: Right arm, Patient Position: Sitting) Pulse 75 Temp 37.4 ??C (99.4 ??F) Ht 167.6 cm (5' 5.98 ) Wt 73.3 kg (161 lb 8 oz) SpO2 99% BMI 26.08 kg/m?? Wt Readings from Last 6 Encounters: 01/23/24 73.3 kg (161 lb 8 oz) 10/17/23 77.7 kg (171 lb 3.2 oz) 01/16/23 76.9 kg (169 lb 8 oz) 07/03/22 84.1 kg (185 lb 8 oz) 12/27/21 83.9 kg (185 lb) 12/20/21 72.6 kg (160 lb) General Assessment There were no orthostatic complaints. Exam limited d/t inability to follow commands. Cranial Nerves Pupils were equal, round and reactive to light. Extraocular movements were normal with smooth pursuit. Facial movement was symmetric. Hearing was normal. Tongue protrusion was midline. Motor Motor exam revealed normal bulk. Tremor was absent, bradykinesia was absent. Sensation Sensation was intact to light touch. Coordination Able to extend arms out with eyes closed and touch nose on right, difficulty nearing the target on left. Reflexes Reflexes were symmetric at the biceps, brachioradialis and knees. Gait Gait was slow, decreased arm swing. He was fluent throughout the interview and examination. Neuropsychiatric Testing On formal neurobehavioral testing, which took from 1031 to 1051 , scores were in the moderately impaired range on tests of semantic memory (Verbal Fluency). Scores were in the moderately impaired range on tests of episodic memory (episodic items, Logical Memory). On more global tests, MMSE was 10/30. Episodic recall was 0/5 and 3/3. These findings are consistent with moderately impaired. He was not able to subtract serials threes, was not able to calculate the number of quarters in $6.75. He was not able to draw a clock. My interpretation and reporting of these results took 15 minutes. I reviewed the testing with the CS (CS'S) and patient and compared prior testing scores. GDS (Geriatric Depression Screen) was administered today, this was reviewed in the psychometric package- He endorsed 2 items on the GDS, felt sad, depressed, or lost interest in things once pleasurable and had to be moving all the time. 07/21/2019 7:00 AM 12/27/2020 3:59 AM 12/27/2021 2:39 AM 07/03/2022 7:00 AM 01/16/2023 7:00 AM 10/17/2023 7:00 AM 01/23/2024 10:31 AM [facility] Neurobehavioral Status Exam Results Repository ICF signed? No No Yes No No Yes Verbal Fluency Total Score 14 12 2 2 Clare Naming (15 item) Total Score 15 15 14 14 14 11 MMSE Score 26 18 16 14 17 12 10 Word List Memory Task 14 8 Word List Recall 0 0 Short Blessed Total Score 9 21 24 24 24 28 28 Logical Memory Total Score 2 5 2 0 0 Trails A - Seconds to complete 36 53 180 180 Trails A - Errors 0 2 4 Trails B - Seconds to complete 0 Trails B - Errors 0 Total Score (out of 90) 24 Digit Symbol Errors 0 Clinical Dementia Ratin12/27/2020 3:59 AM 12/27/2021 2:39 AM 12/27/2021 7:00 AM 07/03/2022 7:00 AM 01/16/2023 7:00 AM 10/21/2023 7:00 PM 01/23/2024 10:31 AM [facility] CDR/DIAGNOSIS NEW Repository ICF signed? No Yes [...] conservative measures are not effective. Referred to Vice President Research Vero Moraes for resources and support, recommend placement, more helpat home, daycare, counseling for CS. F/u with primary care provider to r/o acute problem such as Urinary Tract Infection. Further Neuropsychiatric Testing not clinically meaningful. 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 Patient Instructions [facility] After Visit Summary SHY Watson (Nurse Practitioner) Thank you for coming to the [facility]. We appreciate this opportunity to participatein your care. We have reviewed the concerns about your memory and thinking. Memory and thinking test scores today: MMSE (Mini Mental Status Exam): Mini-Mental Total Score ((out of 30): 10 A perfect score on this test is 30. A score of of between 27-30 is considered normal. A score of 24-26 is considered mildly impaired. A score of 20-23 is impaired. Scores below 20 show moderate impairment and 10 or below showssevere impairment. Diagnosis: We think that the changes you and your family have observed in your memory and thinking are most likely caused by: Alzheimer's dementia Medications: We increased your quetiapine/Seroquel to 75 mg three times daily (1.5 tablets) for agitation Additional Recommendations We should make sure you do not have a Urinary Tract Infection as this can exacerbate behavioral issues. We recommend you consider placement, support groups or counseling. Additional Resources and Support: Alzheimer's Association of [place] Chapter: ; (toll free); http://www.alz.org, The Alzheimer's Association 05/03 Helpline provides reliable information and support to all those who need assistance. Call toll-free anytime day or night at . Memory Long Term Solution: [place] is to extend and improve quality time at home for people living with dementia and their care partners, or Memorycarehs.org, They provide family certified caregiver support, education and skills. Memory Long Term Solutions will make it easier for you to enhance your skills and adapt your home setting to meet the ever-changing demands of caregiving. Silvia Moraes R.N. Vice President Research Alzheimer's Association [address] [place] [address] Toll Free: [phone] ext [phone] Email: The best way to reach our team is via My Chart, this is a secure way for us to communicate about your health care. Please call The My Chart Support Desk: [phone] for help with My Chart, or [phone] to obtain a link for access. We offer in person and telemedicine (virtual) visits. Please let us know your preference when scheduling. My total encounter time on 01/23/2024 was 45 minutes which was spent in the activities documented inthe note. This includes time spent prior to the visit and after the visit in direct care of the patient. This time does not include time spent in any separately reportable services. 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 LORazepam (ATIVAN) 0.5 mg tablet Take 1 tablet (0.5 mg total) by mouth 2 (two) times a day as needed 01/03/2024 added in this encounter Care Teams Machine Bobbin Winder Relationship Specialty Start Date End Date Ganesh Prince MD PCP - General 11/28/17 documented as of this encounter
--- OUTSIDE RECORDS SUMMARY | 2024-08-13 04:56 | XMS_ITS | Encounter Summary ---
Author Organization [facility] Address [address] [place] [address] Phone Care Team Providers Care Manual Lathe Operator Name Role Phone Ganesh Prince MD Primary Care Provider + [phone] Encounter Details Date Type Department Care Team (Late st Contact Info) Description 04/24/[address] 6th Floor [address] [place] [address] Silvia Moraes Social History Tobacco Use Types Packs/Day Years Used Date Smoking Tobacco: Former Alcohol Use Standard Drinks/Week Comments Yes 0 (1 standard drink = 0.6 oz pur e alcohol) Sex and Gender Information Value Date Recorded Sex Assigned at Not on file Legal 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 Seema at the [address] [facility] following referral by the nurse practitioner. She???s the PCG for her , Ganesh, who has EOAD. He???s 63 yrs old. They live in their home in [place], [place]. Murtaza reported that Ganesh is being evaluated for hospice next week. [facility] referral to hospice came from a friend. This cc is unsure he'll qualify. If he doesn't, this CC encouraged Murtaza to let Dianne Worthington know and to ask for a referral to palliative care. She's considering placement. she and her son have begun looking at their options. so far, they've only explored [facility], in [place]. This CC provided a list of several other options. Action Plan: 1) Let [facility] know if a referral to palliative care is needed. 2) Use provided list to explore Assisted Living options in your area. documented in this encounter Plan of Treatment Not on file documented as of this encounter Visit Diagnoses Not on filedocumented in this encounter Care Teams Manual Lathe Operator Relationship Specialty Start Date End Date Ganesh Prince MD PCP - General 11/28/17 documented as of this encounter
--- OUTSIDE RECORDS SUMMARY | 2024-08-13 04:56 | XMS_ITS | Encounter Summary ---
Author Organization [facility] Address [address] [place] [address] Phone Care Team Providers Care Physician Scientist Name Role Phone Ganesh Prince MD Primary Care Provider + [phone] Reason for Visit * Reason Onset Date Comments Behavior Problem 07/31/2023 Encounter Details Date Type Department Care Team (Late st Contact Info) Description 07/31/[address] [place] [address] Saima Rivers CMA Behavior Problem Social History Tobacco Use Types Packs/Day Years Used Date Smoking Tobacco: Former Alcohol Use Standard Drinks/Week Comments Yes 0 (1 standard drink = 0.6 oz pur e alcohol) Sex and Gender Information Value Date Recorded Sex Assigned at Not on file Legal Sex Male 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 wants APPRENTICE MACHINIST OUTSIDE to give pt something else because what pt is taking now doesn't seem to be working. They need something else. K SAW OPERATOR documented in this encounter Plan of Treatment Not on file documented as of this encounter Visit Diagnoses Not on filedocumented in this encounter Care Teams Physician Scientist Relationship Specialty Start Date End Date Ganesh Prince MD PCP - General 11/28/17 documented as of this encounter
--- OUTSIDE RECORDS SUMMARY | 2024-08-13 04:56 | XMS_ITS | Encounter Summary ---
Author Organization [facility] Address [address] [place] [address] Phone Care Team Providers Care Insole Reinforcer Name Role Phone Ganesh Prince MD Primary Care Provider [phone] Encounter Details Date Type Department Care Team (Latest Contact Info) Description 08/04/2019 Orders Only [facility] Scanning, Provider Social History Tobacco Use Types Packs/Day Years Used Date Smoking Tobacco: Former Alcohol Use Standard Drinks/Week Comments Yes 0 (1 standard drink = 0.6 oz pur e alcohol) Sex and Gender Information Value Date Recorded Sex Assigned at Not on file Legal Sex 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 Gender Identity Not on file Sexual Orientation Not on file documented as of this encounter Plan of Treatment Not on file documented as of this encounter Procedures Procedure Name Priority Date/Time Associated Diagnosis Comments SCAN - NEUROLOGY 08/04/2019 documented in this encounter Results * SCAN - NEUROLOGY (08/04/2019) Anatomical Region Laterality Modality Other us Provider Scanning Final Result documented in this encounter Visit Diagnoses Not on filedocumented in this encounter Care Teams Insole Reinforcer Relationship Specialty Start Date End Date Ganesh Prince MD PCP - General 11/28/17 documented as of this encounter
--- OUTSIDE RECORDS SUMMARY | 2024-08-13 04:56 | XMS_ITS | Encounter Summary ---
Author Organization [facility] Address [address] [place] [address] Care Team Providers Care Manager Of Community Relations Name Role Phone Ganesh Prince MD Primary Care Provider [phone] Reason for Referral * Neurology (Routine) - Closed Specialty Diagnoses / Procedures Referred By Contac t Referred To Contact Neurology Diagnoses 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 disturbance (HCC) Procedures EEG Flores Moore MD PhD [address] [place] [id number] Phone: tel: fax: Referral ID Status Reason Start Date Expiration Date Visits Re quested Visits Authorized [id number] Closed 07/21/2019 01/29/2021 1 1 RIOLOGIST Reason for Visit * Neurology (Routine) - Closed Specialty Diagnoses / Procedures Referred By Contac t Referred To Contact Neurology Diagnoses 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 disturbance (HCC) Procedures EEG Flores Moore MD PhD [address] [address] Phone: tel: fax: Referral ID Status Reason Start Date Expiration Date Visits Re quested Visits Authorized [id number] Closed 07/21/2019 01/29/2021 1 1 Encounter Details Date Type Department Care Team (Latest Contact Info) Description 09/29/2019 1:00 PM MALARIOLOGIST - 09/29/2019 11:59 PM MALARIOLOGIST Hospital Encounter [facility] [address] [place] [address] Flores Moore MD PhD [address] [place] [address] Jaquan Hwang 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 disturbance (CMS/HCC) Discharge Disposition: Discharge to home or self care Social History Tobacco Use Types Packs/Day Years Used Date Smoking Tobacco: Former Alcohol Use Standard Drinks/Week Comments Yes 0 (1 standard drink = 0.6 oz pur e alcohol) Sex and Gender Information Value Date Recorded Sex Assigned at Not on file Legal Sex Male 8:13 AM MALARIOLOGIST Gender Identity Not on file Sexual Orientation Not on file documented as of this encounter Medications at Time of Discharge atorvastatin (LIPITOR) 10 mg tablet Take 10 mg by mouth daily. 3 08/17/2018 3 donepezil (ARICEPT) 10 mg tablet TAKE 1 TABLET BY MOUTH EVERY DAY WITH BREAKFAST 90 tablet 3 11/12/2018 0 escitalopram (LEXAPRO) 20 mg tabletIndication s:Anxiety with Depression Take 1 tablet (20 mg total) by mouth daily 90 tablet 3 07/21/2019 0 folic acid (FOLVITE) 1 mg tablet Take 1,000 mcg by mouth daily. 0 01/29/2017 0 meclizine (ANTIVERT) 12.5 mg tablet Take 12.5 mg by mouth 3 (three) times a day as needed. 0 SPECTRAVITE SENIOR tablet Take 1 tablet by mouth daily. 0 01/29/2017 0 documented as of this encounter Discharge Disposition Disposition Code Departure Means Destination Discharge to home or self care documented in this encounter Plan of Treatment Not on file documented as of this encounter Procedures Procedure Name Priority Date/Time Associated Diagnosis Comments EEG Routine 09/29/2019 2:16 PM MALARIOLOGIST 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 disturbance (CMS/HCC) documented in this encounter Results * EEG (09/29/2019 2:16 PM MALARIOLOGIST) Anatomical Region Laterality Modality EEG Narrative 09/29/2019 4:21 PM MALARIOLOGIST Routine EEG Report Patient Name: Ganesh Stephenson [facility] Medical Record Number (MRN): [id number] Rodolfo Helm Record: [id number] Date of (): 1960 EEG Date: 09/29/2019 Ordering Provider: Flores Moore MD PhD CC: Ganesh Prince Start Time: 09/29/2019 1:45:08 PM ? End Time: 09/29/2019 2:07:18 PM Introduction: Mr. Stephenson is a 58 y.o. male with a history of multiple brain traumas and cognitive decline, presenting with altered mental status and seizure-like activity. EEG was performed to evaluate for seizures. This is a 32 channel EEG recording acquired on a [employer] EEG-1200 acquisition system. Scalp electrodes were placed [...] (HCC) documented in this encounter Care Teams Manager Of Community Relations Relationship Specialty Start Date End Date Ganesh Prince MD PCP - General 11/28/17 documented as of this encounter
--- OUTSIDE RECORDS SUMMARY | 2024-08-13 04:57 | XMS_ITS | Encounter Summary ---
Author Organization [facility] Healthcare Address [address] [place] [address] Care Team Providers Care Marshmallow Runner Name Role Phone Tommie Lu MD Primary Care Provider + Encounter Details Date Type Department Care Team (Latest Contact Info) Description 02/09/2009 1:52 PM CDT - 02/09/2009 3:23 PM CDT Hospital Encounter [facility] CLINCON[facility]my Marshall MD [address] [facility] [place] [address] Georges Birch MD [address] [place] [id number] Open wound of knee, leg, and ankle; Accident caused by other specified cutting and piercing instruments or objects; Place of occurrence, public building; Need for prophylactic vaccination with tetanus-diphtheria (Td) Social History Tobacco Use Types Packs/Day Years Used Date Smoking Tobacco: Never Assessed Sex and Gender Information Value Date Recorded Sex Assigned at Not on file 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 Gender Identity Not on file Sexual Orientation Not on file documented as of this encounter Plan of Treatment Not on file documented as of this encounter Visit Diagnoses Diagnosis Open wound of knee, leg, and ankle Open wound of knee, leg (except thigh), and ankle, without mention of complication Accident caused by other specified cutting and piercing instruments or objects Place of occurrence, public building Need for prophylactic vaccination with tetanus-diphtheria (Td) documented in this encounter Care Teams Marshmallow Runner Relationship Specialty Start Date End Date Tommie Lu MD [address] [place], [place] [address] PCP - General 10/22/07 12/28/13 documented as of this encounter
--- OUTSIDE RECORDS SUMMARY | 2024-08-13 04:57 | XMS_ITS | Encounter Summary ---
Author Organization [facility] Address [address] [place] [address] Care Team Providers Care Special Forces Warrant Officer Name Role Phone Tommie Lu MD Primary Care Provider + Encounter Details Date Type Department Care Team (Late st Contact Info) Description 01/03/2012 8:16 AM CDT - 01/03/2012 10:30 AM CDT Hospital Encounter [facility] Mary Castillo MD [address] [place] [address] [address] Special screening for malignant neoplasms, colon; Diverticulosis of colon; Internal hemorrhoids; History of colonic polyps Social History Tobacco Use Types Packs/Day Years Used Date Smoking Tobacco: Never Assessed Sex and Gender Information Value Date Recorded Sex Assigned at Not on file 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 Admit Date: 01/03/2012 Dict.: Mary Khan M.D. Disch. Date: 01/03/2012 NAME OF PROCEDURE: Diagnostic screening colonoscopy. DATE OF PROCEDURE: January 03, 2012 INDICATIONS: Personal history of colon polyps, screening for colon cancer. PRIMARY CARE PHYSICIAN: Dr. Tommie Lu. BRIEF HISTORY AND PHYSICAL: The patient is a 51-year-old white male. The patient has history of ____ polyps in 2009. The patient has occasional episodes of bright red blood per rectum especially when he wipes with a tissue. Colonoscopy is being done for screening. DESCRIPTION OF THE PROCEDURE: Sedation was provided by the anesthesia service. The procedure of colonoscopy including indications and possible complications of bleeding, infection and perforation requiring surgery were discussed with the patient and consent was obtained. Rectal exam prior to colonoscopy was unremarkable. The scope was introduced into the rectum and advanced all the way to the cecum which was identified by the ileocecal valve and appendiceal orifice. The terminal ileum was intubated and appeared normal. The cecum, ascending colon, transverse colon, and descending colon were all unremarkable. There was marked diverticulosis in the sigmoid colon. The rectum was unremarkable and the retroflexed view of the rectum showed small to medium sized internal hemorrhoids. IMPRESSION: 1. Diverticulosis of the sigmoid colon. 2. Internal hemorrhoids. 3. No polyps noted on this test. RECOMMENDATIONS: Repeat colonoscopy for screening for colon cancer in five years. Leticia Galvan/cheryl TD: 01/04/2012 02:56 CC: Tommie Lu M.D. Authenticated by Mary Khan MD On 01/19/2012 11:20:35 AM documented in this encounter Plan of Treatment Not on file documented as of this encounter Procedures Procedure Name Priority Date/Time Associated Diagnosis Comments COLONOSCOPY 01/03/2012 12:00 AM CDT documented in this encounter Results * COLONOSCOPY (01/03/2012 12:00 AM CDT) Anatomical Region Laterality Modality Other Narrative 01/03/2012 12:00 AM CDT Ordered by an unspecified provider. Procedure Note ProviderSanna MD - 01/03/2012 12:00 AM CDT PROCEDURE REPORT Patient: GANESH MACIEL Account: [id number] Room No: : 1960 Patient Type: SDS Attend.: Mary Khan M.D. Admit Date: 01/03/2012 Dict.: Mary Khan M.D. Disch. Date:01/03/2012 NAME OF PROCEDURE: Diagnostic screening colonoscopy. DATE OF PROCEDURE: January 03, 2012 INDICATIONS: Personal history of colon polyps, screening for coloncancer. PRIMARY CARE PHYSICIAN: Dr. Tommie Lu. BRIEF HISTORY AND PHYSICAL: The patient is a 51-year-old white male. The patient has history of ____ polyps in 2008. The patient has occasionalepisodes of bright red blood per rectum especially when he wipes with a tissue. Colonoscopy is being done for screening. DESCRIPTION OF THE PROCEDURE: Sedation was provided by the anesthesiaservice. The procedure of colonoscopy including indications and possiblecomplications of bleeding, infection and perforation requiring surgery were discussedwith the patient and consent was obtained. Rectal exam prior to colonoscopywas unremarkable. The scope was introduced into the rectum and advanced allthe way to the cecum which was identified by the ileocecal valve and appendiceal orifice. The terminal ileum was intubated and appeared normal. Thececum, ascending colon, transverse colon, and descending colon were allunremarkable. There was marked diverticulosis in the sigmoid colon. The rectum was unremarkable and the retroflexed view of the rectum showed small tomedium sized internal hemorrhoids. IMPRESSION: 1. Diverticulosis of the sigmoid colon. 2. Internal hemorrhoids. 3. No polyps noted on this test. RECOMMENDATIONS: Repeat colonoscopy for screening for colon cancer infive years. Leticia Galvan/cheryl TD: 01/04/2012 02:56 CC: Tommie Lu M.D. Authenticated by Mary Khan MD On 01/19/2012 11:20:35 AM us Historical Provider ENDOSCOPY PROCEDURES Mariza l Result documented in this encounter Visit Diagnoses Diagnosis Special screening for malignant neoplasms, colon Diverticulosis of colon Diverticulosis of colon (without mention of hemorrhage) Internal hemorrhoids Internal hemorrhoids without mention of complication History of colonic polyps Personal history of colonic polyps documented in this encounter Care Teams Special Forces Warrant Officer Relationship Specialty Start Date End Date Tommie Lu MD [address] [place] [address] PCP - General 10/22/07 12/28/13 documented as of this encounter
--- OUTSIDE RECORDS SUMMARY | 2024-08-13 04:57 | XMS_ITS | Encounter Summary ---
Author Organization [facility] Healthcare Address [address] [place] [address] Care Team Providers Care Geophysical Engineer Name Role Phone Tommie Deal MD Primary Care Provider + Encounter Details Date Type Department Care Team (Late st Contact Info) Description 12/25/2012 2:27 PM CDT - 12/25/2012 11:59 PM CDT Hospital Encounter [facility] Tommie Andrew MD [address] [place] [address] Concussion; Fall; Unspecified place of occurrence; Other activity; Other external cause of injury or poisoning; Dizziness and giddiness; Other specified visual disturbances Social History Tobacco Use Types Packs/Day Years Used Date Smoking Tobacco: Never Assessed Sex and Gender Information Value Date Recorded Sex Assigned at Not on file 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 Gender Identity Not on file Sexual Orientation Not on file documented as of this encounter Plan of Treatment Not on file documented as of this encounter Procedures Procedure Name Priority Date/Time Associated Diagnosis Comments CT HEAD WO CONTRAST Routine 12/25/2012 3 :05 PM CDT documented in this encounter Results * CT Head WO Contrast (12/25/2012 3:05 PM CDT) Anatomical Region Laterality Modality Head and Neck N/A Computed Tomogra phy 12/25/2012 3:05 PM CDT Narrative 12/26/2012 2:[address] [place] ?[id number] ??Acc#: ??[id number] DATE OF EXAM: ??Dec 25 2012 CLINICAL HISTORY: Fell and hit head 1 1/2 weeks ago. Concussion. ??Complains of dizziness and blurred vision. RESULT: Contiguous noncontrast axial scans were obtained from base of skull to vertex. Ventricles, basal cisterns and cortical sulci are normal. ??Cross and white matter density are normal. ??No mass, hemorrhage, edema or midline shift is seen. ??No abnormal intraaxial or extraaxial fluid collection is identified. ??No pathological intracranial calcification is seen. Calvarium and base of skull appear intact. ??Mastoid air cells are well developed and aerated bilaterally, as are visualized portions of paranasal sinuses. IMPRESSION: 1. NORMAL CT HEAD WITHOUT CONTRAST. Interpreting Physician: ??JEFF VILLAVICENCIO M.D. ??Read on: ??Dec 25 2012 3:10P Transcribed by: ??brad ??On: Dec 25 2012 ??5:08P Approved Electronically by: ??SAUD Kelly, JEFF ??on: ??Dec 26 2012 2:00P Ordering DR: DR TOMMIE DEAL Attending DR: DR TOMMIE DEAL Procedure Note Provider, MD Sanna - 12/12/[place] [id number] Acc#: [id number] DATE OF EXAM: Dec 25 2012 CLINICAL HISTORY: Fell and hit head 1 1/2 weeks ago. Concussion. Complains of dizzinessand blurred vision. RESULT: Contiguous noncontrast axial scans were obtained from base of skull tovertex. Ventricles, basal cisterns and cortical sulci are normal. Grayand white matter density are normal. No mass, hemorrhage, edema ormidline shift is seen. No abnormal intraaxial or extraaxial fluidcollection is identified. No pathological intracranial calcification isseen. Calvarium and base of skull appear intact. Mastoid air cells arewell developed and aerated bilaterally, as are visualized portions ofparanasal sinuses. IMPRESSION: 1. NORMAL CT HEAD WITHOUT CONTRAST. Interpreting Physician: JEFF VILLAVICENCIO M.D. Read on: Dec 25 20123:10P Transcribed by: vam On: Dec 25 2012 5:08P Approved Electronically by: JEFF VILLAVICENCIO M.D. on: Dec 26 20122:00P Ordering DR: DR TOMMIE DEAL Attending DR: DR TOMMIE DEAL us Historical Provider IMGeorge CT PROCEDURES Final R esult documented in this encounter Visit Diagnoses Diagnosis Concussion Unspecified concussion Fall Unspecified fall Unspecified place of occurrence Other activity Other external cause of injury or poisoning Dizziness and giddiness Other specified visual disturbances documented in this encounter Care Teams Geophysical Engineer Relationship Specialty Start Date End Date Tommie Deal MD [address] [place] [address] PCP - General 10/22/07 12/28/13 documented as of this encounter
--- OUTSIDE RECORDS SUMMARY | 2024-08-13 04:57 | XMS_ITS | Encounter Summary ---
Author Organization [facility] Address [address] [place] [address] Care Team Providers Care Overhead Cleaner Maintainer Name Role Phone Tommie Lu MD Primary Care Provider + Reason for Visit * Reason Comments Hospital Follow Up Gout follow up Encounter Details Date Type Department Care Team (Late st Contact Info) Description 03/05/2017 9:00 AM CDT Office Visit [facility] [address] [place] [address] [address] [place] [address] Tommie Lu MD [address] [place] [address] Obstructive sleep apnea syndrome (Primary Dx); 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); Idiopathic chronic gout of multiple sites without tophus; JEANETTE (generalized anxiety disorder) Social History Tobacco Use Types Packs/Day Years Used Date Smoking Tobacco: Former Alcohol Use Standard Drinks/Week Comments Yes 0 (1 standard drink = 0.6 oz pur e alcohol) Sex and Gender Information Value Date Recorded Sex Assigned at Not on file 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 Gender Identity Not on file Sexual Orientation Not on file documented as of this encounter Last Filed Vital Signs Vital Sign Reading Time Taken Comments Blood Pressure 108/70 03/05/2017 9:20 AM CDT Pulse 64 03/05/2017 9:20 AM CDT Temperature - - Respiratory Rate - - Oxygen Saturation - - Inhaled Oxygen Concentration - - Weight 73.3 kg (161 lb 11.2 oz) 03/05/2017 9:20 AM CDT Height 167.6 cm (5' 6 ) 03/05/2017 9:20 AM CDT Body Mass Index 26.1 03/05/2017 9:20 AM CDT documented in this encounter Ordered Prescriptions Prescription Sig Dispense Quantity Refills Last Filled Start Date End Date escitalopram (LEXAPRO) 10 mg tabletIndications: JEANETTE (generalized anxiety disorder) Take 1 tablet (10 mg total) by mouth daily. 90 tablet 3 03/05/2017 03/05/2018 documented in this encounter Progress Notes * Tommie Lu MD - 03/05/2017 9:00 AM CDT Subjective/Objective Patient ID: Ganesh Stephenson is a 56 y.o. male. 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 He has continued problems with recent memory. He has further investigation with Neurology [place] pending which will include reimaging and a spinal tap. They have also asked her sleep study which were arranging. He has a history of obstructive sleep apnea and he isn't not compliant with CPAP. Review of Systems Gout has been quiescent. Generalized anxiety disorder reasonably well controlled with SSRI Physical Exam The head is atraumatic and normocephalic. Pupils are equal round and react to light and accommodation. Extraocular movements intact. Sclera white. Conjunctiva pink. Ears nose and throat clear mouth is moist. Neck is supple prep showed normal no adenopathy or thyromegaly. Chest clear to percussion auscultation. Heart S1-S2 regular no clear murmur gallop or rub. Abdomen flat soft nontender no mass.CVA negative, No clubbing cyanosis edema or rash. Alert oriented without focal neurolical abnormality. Palmomental is absent Assessment/Plan Diagnoses and all orders for this visit: 1. Obstructive sleep apnea syndrome (Primary) - PSG (Complex); Future 2. 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 Idiopathic chronic gout of multiple sites without tophus 4. JEANETTE (generalized anxiety disorder) - escitalopram (LEXAPRO) 10 mg tablet; Take 1 tablet (10 mg total) by mouth daily. Will continue current medical therapies will discontinue his statin just in case he has 1 the rare cases were contributes to and encephalopathy. Will await the neurology workup in order the sleep study and follow-up in 3 months no alcohol no driving in the meantime. The patient offered no further complaints. The patient was instructed to call back if there are any signs or symptoms of concern to them. The patient was instructed to call back in 3 days for test results. They were given the optionto review the test results online. Further directions as indicated. documented in this encounter Plan of Treatment Not on file documented as of this encounter Procedures Procedure Name Priority Date/Time Associated Diagnosis Comments LIPID PANEL Routine 07/24/2016 PSA SCREENING Routine 03/14/2016 documented in this encounter Results * LIPID PANEL (07/24/2016) Pathologist [facility] Lipid Panel Abnormal [facility] Provider MD HEALTH MAINTENANCE Final Result * PSA SCREENING (03/14/2016) Pathologist [facility] PSA Normal Historical Provider MD HEALTH MAINTENANCE Final Result documented in this encounter Visit Diagnoses Diagnosis Obstructive sleep apnea syndrome- Primary Obstructive sleep apnea (adult) (pediatric) Dementia associated with alcoholism without behavioral disturbance (HCC) Idiopathic chronic gout of multiple sites without tophus JEANETTE (generalized anxiety disorder) Generalized anxiety disorder documented in this encounter Discontinued Medications Medication Sig Discontinue Reason Start Date End Da te thiamine (vitamin B-1) 100 mg tablet take 1 Tablet by Oral route once 03/24/2015 03/05/2017 cholecalciferol (VITAMIN D3) 1,000 unit capsule take 1 capsule daily 03/24/201502/11 atorvastatin (LIPITOR) 40 mg tablet Take 40 mg by mouth daily. 03/05/2017 escitalopram (LEXAPRO) 10 mg tablet Reorder 02/22/2017 03/05/2017 documented as of this encounter Historical Medications * This list may reflect changes made after this encounter. Medication Sig Dispense Quantity Refills Last Filled Start D ate End Date escitalopram (LEXAPRO) 10 mg tablet 02/22/2017 03/05/2017 added in this encounter Care Teams Overhead Cleaner Maintainer Relationship Specialty Start Date End Date Tommie Lu MD [address] [place] [address] PCP - General 11/10/16 11/27/17 documented as of this encounter
--- OUTSIDE RECORDS SUMMARY | 2024-08-13 04:57 | XMS_ITS | Encounter Summary ---
Author Organization [facility] Healthcare Address [address] [place] [address] Care Team Providers Care Relay Shop Supervisor Name Role Phone Tommie Lu MD Primary Care Provider + Encounter Details Date Type Department Care Team (Late st Contact Info) Description 12/01/2009 12:01 AM CDT - 12/01/2009 11:59 PM CDT Hospital Encounter [facility] Tommie Lu MD [address] [place] [address] Obstructive sleep apnea; Other dyspnea and respiratory abnormality Social History Tobacco Use Types Packs/Day Years Used Date Smoking Tobacco: Never Assessed Sex and Gender Information Value Date Recorded Sex Assigned at Not on file 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
--- OUTSIDE RECORDS SUMMARY | 2024-08-13 04:57 | XMS_ITS | Encounter Summary ---
Author Organization [facility] Healthcare Address [address] [place] [address] Care Team Providers Care Gauge Controller Name Role Phone Tommie Lu MD Primary Care Provider + Encounter Details Date Type Department Care Team (Latest Contact Info) Description 01/27/2017 6:48 PM CDT - 01/29/2017 1:56 PM CDT Hospital Encounter [facility] [address] [place] [address] aGge Morgan MD [address] [facility] [address] [place] [address] Gage Alonso MD [address] [place] [address] Discharge Disposition: Discharge to home or self care Social History Tobacco Use Types Packs/Day Years Used Date Smoking Tobacco: Former Alcohol Use Standard Drinks/Week Comments Yes 0 (1 standard drink = 0.6 oz pur e alcohol) Sex and Gender Information Value Date Recorded Sex Assigned at Not on file Legal Sex Male 8:13 AM [employer] Gender Identity Not on file Sexual Orientation Not on file documented as of this encounter Last Filed Vital Signs Vital Sign Reading Time Taken Comments Blood Pressure 158/84 01/29/2017 12:27 PM CDT Pulse 61 01/29/2017 12:27 PM CDT Temperature - - Respiratory Rate - - Oxygen Saturation 98% 01/29/2017 12:27 PM CDT Inhaled Oxygen Concentration - - Weight 76 kg (167 lb 9.5 oz) 01/28/2017 6:58 AM CDT Height 167.6 cm (5' 6 ) 01/28/2017 6:58 AM CDT Body Mass Index 27.05 01/28/2017 6:58 AM CDT documented in this encounter Medications at Time of Discharge atorvastatin (LIPITOR) 40 mg tablet take 1 tablet by oral route every day 90 3 05/02/2016 02/15/2017 cholecalciferol (VITAMIN D3) 1,000 unit capsule take 1 capsule daily 0 0 03/24/2015 03/05/2017 folic acid (FOLVITE) 1 mg tablet Take 1,000 mcg by mouth daily. 0 01/29/2017 03/25/2020 meclizine (ANTIVERT) 25 mg tablet take 1 tablet by ORAL route 4 times every day as needed 60 3 07/27/2015 02/15/2017 SPECTRAVITE SENIOR tablet Take 1 tablet by mouth daily. 0 01/29/2017 03/25/2020 thiamine (vitamin B-1) 100 mg tablet take 1 Tablet by Oral route once 0 0 03/24/2015 03/05/2017 documented as of this encounter Discharge Disposition Disposition Code Departure Means Destination Discharge to home or self care documented in this encounter Consult Notes * Miscellaneous, Not In File - 01/27/2017 5:00 AM CDT Patient: GAGE MACIEL Reg No: [id number] U H #: [id number] Admit Dt.: 01/27/2017 : 1960 Room No: Attending: Rand Grande MD Consulting: Kenroy Stinson M.D. Dictating: Cristobal Gómez M.D. Service Dt: 01/27/2017 CONSULTATION REPORT FACILITY ID: [facility] CONSULTING PHYSICIAN Kenroy Stinson MD SERVICE REQUESTING CONSULTATION Emergency department. REASON FOR CONSULTATION Possible subarachnoid hemorrhage. HISTORY OF PRESENT ILLNESS The patient is a 56-year-old gentleman with a history of mild dementia who presents to [facility] with altered mental status and a possible diagnosis of subarachnoid hemorrhage. The patient, per his family, was in a normal state of health through yesterday. In particular, the patient has mild memory difficulties and does require some assistance with short-term memory tasks, but otherwise is independent and functional at baseline, and should be oriented x3. 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 There he was reportedly found to be somewhat confused and lightheaded, but there were no direct witnesses available, and subsequently he was taken home and then brought to the emergency department. There a head CT scan was done which was read as concerning for possible subarachnoid hemorrhage in the basal cisterns. The patient was sent to [place] for further evaluation. The patient denies any sort of headache now or earlier. Denies any nausea or vomiting. Denies any neck stiffness. Denies any light sensitivity and denies any head trauma. Of note, patient's sodium is 122. PAST MEDICAL HISTORY Hyperlipidemia, gout, and mild dementia with some mild memory difficulties, per his family. MEDICATIONS 1. Atorvastatin 40. 2. Meclizine 25. 3. Vitamin D1. 4. Vitamin D3. PERSONAL HISTORY No knowledge of aspirin, Plavix, or drug use. His is not here at this time to independently confirm that, but it is consistent with his medical record. ALLERGIES No known drug allergies. FAMILY HISTORY Noncontributory. In particular, no known history of brain vascular lesion. SOCIAL HISTORY He quit smoking a year ago. Quit alcohol about a year ago. No current drug use. He is , lives with his , works in manual labor including yard work, and he is functionally independent at baseline. REVIEW OF SYSTEMS Significant as per HPI, but somewhat limited by the patient's mental status. PHYSICAL EXAM The patient opens eyes to voice and . Regards. Follows commands. He is oriented x2. His pupils are equal, round, and reactive to light. Extraocular muscles intact. Face is equal and tongue is midline. He has no drift. He is slightly tremulous. He moves all extremities 5/5 x4. Sensation intact x2. His reflexes are 2+ and symmetric. No clonus or Baeza's noted. IMAGING Shows evidence of mild hyperdensity in the basal cistern which is overall consistent with June 2015, though outside radiologist did raise some concern of possible subarachnoid hemorrhage. LABORATORY REVIEW Notable for a sodium of 122, platelets 174, potassium 3, INR 1.04, and PTT 27.7. ASSESSMENT AND PLAN The patient is a 56-year-old gentleman with a history of mild memory issues who now presents with altered mental status, sodium 122, and outside hospital radiologist concern for possible subarachnoid hemorrhage that is seen likely consistent with his June [address] Plan: 1. Please obtain CBC, BMP, coags, urinalysis, chest x-ray, EKG, type and screen, LFTs, and additional altered mental status workup. 2. We would recommend performing a lumbar puncture to definitively exclude the presence of subarachnoid hemorrhage and also to assist with altered mental status for investigating other causes of altered mental status. Please be sure to also include opening pressure at that lumbar puncture and 224 cell count and diff. 3. Neurology for altered mental status 4. This plan was discussed with the chief resident, Dr. Capri Farooq, and the attending neurosurgeon, Dr. Kenroy Stinson. ATTENDING ATTESTATION I have evaluated the patient with Dr. Gómez on 01/27/17 and agree with the above findings and plan. Electronically Authenticated and Edited by: Kenroy Stinson MD On 01/29/2017 07:23 AM CDT Cristobal Gómez M.D. Kenroy Stinson M.D. JKG:[facility] #[id number] Editing MT: TD: 01/27/2017 08:33 PM cc: Leticia Maxwell M.D. Joshua Osbun, M.D. [facility] PhysicianMD documented in this encounter Plan of Treatment Not on file documented as of this encounter Procedures Procedure Name Priority Date/Time Associated Diagnosis Comments BASIC METABOLIC PANEL After X-Ray 01/29/2017 5:47 AM CDT HIV 1/2 ANTIBODY PLUS P24 ANTIGEN Routine Gen Lab 01/28/2017 8:50 PM CDT RPR Routine Gen Lab 01/28/2017 8:50 PM CDT VITAMIN B12 After X-Ray 01/28/2017 8:50 PM CDT BASIC METABOLIC PANEL After X-Ray 01/28/2017 8:50 PM CDT BASIC METABOLIC PANEL STAT 01/28/2017 5:02 PM CDT BASIC METABOLIC PANEL After X-Ray 01/28/2017 3:[address] ABDOMEN PELVIS W CONTRAST Routine 01/28/2017 4:00 AM CDT CTA NECK W WO CONTRAST Routine 01/28/2017 4:00 AM CDT CTA HEAD W WO CONTRAST Routine 01/28/2017 4:00 AM CDT THYROID FUNCTION CASCADE STAT 01/28/2017 3:04 AM CDT OSMOLALITY, BLOOD STAT 01/28/2017 3:0 4 AM CDT HEPATIC FUNCTION PANEL STAT 01/28/2017 3:04 AM CDT LIPID PANEL STAT 01/28/2017 3:04 AM CDT BASIC METABOLIC PANEL STAT 01/28/2017 3:04 AM CDT XR CHEST 1 VIEW Routine 01/28/2017 1:35 AM CDT URINALYSIS AND REFLEX TO MICROSCOPIC STAT 01/28/2017 12:58 AM CDT DISCHARGE LABORATORY CUMULATIVE REPORT 01/28/2017 PHOSPHORUS STAT 01/27/2017 9:36 PM CDT MAGNESIUM STAT 01/27/2017 9:36 PM CDT CREATINE KINASE (CK), TOTAL STAT 01/27/2017 9:36 PM CDT BASIC METABOLIC PANEL STAT 01/27/2017 9:36 PM CDT DRUGS OF ABUSE SCREEN, URINE WITHOUT CONFIRMATION STAT 01/27/2017 9:22 PM CDT OSMOLALITY, URINE STAT 01/27/2017 9:2 2 PM CDT B CHECK SAMPLE STAT 01/27/2017 8:30 PM CDT AMMONIA STAT 01/27/2017 8:21 PM CDT TROPONIN I STAT 01/27/2017 7:04 PM CDT CBC WITHOUT DIFFERENTIAL STAT 01/27/2017 7:04 PM CDT TYPE AND SCREEN STAT 01/27/2017 7:04 PM CDT HEMOGLOBIN A1C STAT 01/27/2017 7:04 PM CDT BASIC METABOLIC PANEL STAT 01/27/2017 7:04 PM CDT documented in this encounter Results * Basic metabolic panel (01/29/2017 5:47 AM CDT) Sodium 140 135 - 145 mmol/L [facility] Potassium, pl 4.0 3.3 - 4.9 mmol/L [facility] Chloride 107 97 - 110 mmol/L [facility] CO2 25 22 - 32 mmol/L [facility] BUN 8 8 - 25 mg/dL [facility] Glucose 94 70 - 199 mg/dL [facility] Creatinine 0.84 0.80 - 1.30 mg/dL [facility] Calcium 8.6 8.5 - 10.3 mg/dL [facility] Anion gap 8 2 - 15 mmol/L [facility] Blood specimen (specimen) 01/29/2017 5:47 AM CDT 01/29/2017 6:50 AM CDT us Riaz Ovalle MD LAB BLOOD ORDERABLES Ed ited Result - Final Performing Organization Address [facility]/ZIP Co de Phone Number [facility] [place] [address] * RPR, serum (01/28/2017 8:50 PM CDT) RPR Nonreactive [facility] Blood specimen (specimen) 01/28/2017 8:50 PM CDT 01/28/2017 9:39 PM CDT us Riaz Ovalle MD LAB MICROBIOLOGY - GENE RAL ORDERABLES Final Result Performing Organization Address [facility] Co de Phone Number [facility] Department [place] [address] * Vitamin B12 (01/28/2017 8:50 PM CDT) Pathologist [facility] Vitamin B12 249 210 - 900 pg/mL [facility] Blood specimen (specimen) 01/28/2017 8:50 PM CDT 01/28/2017 9:39 PM CDT us Riaz Ovalle MD LAB BLOOD ORDERABLES Ed ited Result - Final Performing Organization Address [facility] Co de Phone Number [facility] [place] [address] * HIV-1 and HIV-2 antibody with P24 antigen immunoassay (01/28/2017 8:50 PM CDT) Pathologist [facility] HIV 1/2 ab + p24 ag Nonreactive Nonreactive [facility] Comment:Negative for HIV-1 a ntigen and HIV-1/ HIV-2 antibodies. No laboratory evidence of HIV infection. If acute HIV infection is suspected, consider testing for HIV-1 RNA. Blood specimen (specimen) 01/28/2017 8:50 PM CDT 01/28/2017 9:39 PM CDT us Riaz Ovalle MD LAB MICROBIOLOGY - GENE RAL ORDERABLES Final Result Performing Organization Address [facility]/ZIP Co de Phone Number [facility] [place] [address] * Basic metabolic panel (01/28/2017 8:50 PM CDT) Sodium 142 135 - 145 mmol/L [facility] Potassium, pl 4.5 3.3 - 4.9 mmol/L [facility] Chloride 109 97 - 110 mmol/L [facility] CO2 23 22 - 32 mmol/L [facility] BUN 11 8 - 25 mg/dL [facility] Glucose 90 70 - 199 mg/dL [facility] Creatinine 0.87 0.80 - 1.30 mg/dL [facility] Calcium 8.9 8.5 - 10.3 mg/dL [facility] Anion gap 10 2 - 15 mmol/L [facility] Blood specimen (specimen) 01/28/2017 8:50 PM CDT 01/28/2017 9:39 PM CDT us Riaz Ovalle MD LAB BLOOD ORDERABLES Fi nal Result Performing Organization Address [facility] de Phone Number [facility] [place] [address] * Basic metabolic panel (01/28/2017 5:02 PM CDT) Sodium 143 135 - 145 mmol/L [facility] Potassium, pl 4.4 3.3 - 4.9 mmol/L [facility] Comment:Hemolyzed; (++); pot assium value may be falsely elevated by as much as 0.3 - 0.5 mmol/L. Suggest redraw and reanalysis. Chloride 110 97 - 110 mmol/L [facility] CO2 23 22 - 32 mmol/L [facility] BUN 10 8 - 25 mg/dL [facility] Glucose 97 70 - 199 mg/dL [facility] Creatinine 0.80 0.80 - 1.30 mg/dL [facility] Calcium 8.5 8.5 - 10.3 mg/dL [facility] Anion gap 10 2 - 15 mmol/L [facility] Blood specimen (specimen) 01/28/2017 5:02 PM CDT 01/28/2017 6:42 PM CDT us Flip Lyn MD LAB BLOOD ORDERABLES Final Re sult Performing Organization Address [facility] Co de Phone Number [facility] [place] [address] * Basic metabolic panel (01/28/2017 3:17 PM CDT) [facility] Sodium 143 135 - 145 mmol/L [facility] Potassium, pl 4.4 3.3 - 4.9 mmol/L [facility] Chloride 109 97 - 110 mmol/L [facility] CO2 25 22 - 32 mmol/L [facility] BUN 9 8 - 25 mg/dL [facility] Glucose 104 70 - 199 mg/dL [facility] Creatinine 0.80 0.80 - 1.30 mg/dL [facility] Calcium 8.6 8.5 - 10.3 mg/dL [facility] Anion gap 9 2 - 15 mmol/L [facility] Blood specimen (specimen) 01/28/2017 3:17 PM CDT 01/28/2017 3:51 PM CDT us Riaz Ovalle MD LAB BLOOD ORDERABLES Fi nal Result Performing Organization Address [facility] Co de Phone Number [facility] [place] [address] * CTA Head W WO Contrast (01/28/2017 4:00 AM CDT) Anatomical Region Laterality Modality Head and Neck N/A Computed Tomogra phy 01/28/2017 4:00 AM CDT Narrative 01/28/2017 4:00 AM CDT TARIK CORTEZ M.D. PHILLY BOWMAN M.D. FINAL REPORT The radiology attending physician has personally reviewed this study, and has reviewed and/or edited this written report and agrees with it. ACC# ??Date Time ??Exam [id number] Jan 27, 2017 23:00:[id number] Angio Head w/o ??and ??w cont [id number] Jan 27, 2017 23:00:[address] Angio Neck ACC# ??Date Time ??Exam [id number] Jan 27, 2017 23:00:[id number] Angio Head w/o ??and ??w cont [id number] Jan 27, 2017 23:00:[id number] Angio Neck EXAMINATION: ?? Computed tomography angiography (CTA) of the head and neck without and with contrast HISTORY: Subarachnoid hemorrhage TECHNIQUE: Computed tomography of the head was performed without contrast according to standard protocol. Computed tomographic angiography was obtained from the level of the aortic arch to the vertex following the uneventful administration of intravenous contrast. 3D images were generated on a dedicated workstation. Contrast information: 121 mL [id number]-[id number] COMPARISON: None available. FINDINGS: There is no acute intracranial hemorrhage. Ventricles are mildly enlarged, similar to 2013. There is no midline shift or mass effect. Cross-white matter differentiation is normal. The visualized portion of the orbits are normal. There is mild mucosal thickening of the ethmoid sinuses. Visualized portion of the mastoid air cells are normal. There is no fracture. ??There are calcifications of the right tentorium at the ambient cistern with similar calcifications seen along the left tentorium, which is likely responsible for the apparent hyperdensity reported on the outside hospital CT. Scattered subcentimeter lymph nodes are seen in the neck. None are pathologically enlarged or abnormally enhancing. The muscles of the neck are normal. Fascial planes are preserved and the deep spaces of the neck are normal. The visualized airway is widely patent. Spinal canal is normal in caliber. The vertebral bodies are normal. There is mild degenerative disc disease of the cervical spine. Included examination of the superior thorax shows no pulmonary infiltrates, suspicious nodules, or pleural effusions. Angiographic findings: The visualized aortic arch appears normal with normal configuration of the great vessels. The innominate artery and both subclavian arteries are normal in course and caliber. There is atherosclerotic calcifications at the carotid bifurcations bilaterally, resulting in mild stenosis bilaterally, 30-50% per NASCET criteria measuring 2.6 mm at the narrowest point on the right and 2.6 mm on the left, though difficult to precisely quantify due to associated calcifications. Distal carotid diameter is approximately 4.8 mm bilaterally. The [id number]-[id number] is complete. The anterior and middle cerebral arteries are normal. The vertebral arteries are codominant. The basilar artery is normal. The posterior cerebral arteries are normal. There is no aneurysm or vascular malformation identified. ?? IMPRESSION: 1. No acute intracranial abnormality. 2. No evidence of aneurysm. 3. Mild carotid stenosis (30-50%) due to atherosclerotic disease. ?? Requested By: CHER YARBROUGH ??MNorma Dictated By: ?? PHILLY BOWMAN M.D. ??on Jan 28 2017 ??9:27A This document has been electronically signed by: TARIK CORTEZ M.D. on Jan 28 2017 ??2:01P [id number] HARDING M.D. FINAL REPORT The radiology attending physician has personally reviewed this study, and has reviewed and/or edited this written report and agrees with it. Attending: ??CATHY, ??GAGE Requesting: ??VANE, ??CHER Requesting Fax: ?? Attending Fax: ?? Attending ID: ??[id number] Requesting ID: ??[id number] Report To 1 ID: ??[id number] ? Report To 1 Name: ??, ?? Report To 1 FAX: ?? NextGen Order #: ?? Procedure Note Miscellaneous, Not In File - 05/29/2017 TARIK CORTEZ M.D. PHILLY BOWMAN M.D. FINAL REPORT The radiology attending physician has personally reviewed this study, and has reviewed and/or edited this written report and agrees with it. ACC# Date Time Exam [id number] Jan 27, 2017 23:00:[id number] Angio Head w/o and w cont [id number] Jan 27, 2017 23:00:[id number] Angio Neck ACC# Date Time Exam [id number] Jan 27, 2017 23:00:[id number] Angio Head w/o and w cont [id number] Jan 27, 2017 23:00:[id number] Angio Neck EXAMINATION: Computed tomography angiography (CTA) of the head and neck without and with contrast HISTORY: Subarachnoid hemorrhage TECHNIQUE: Computed tomography of the head was performed without contrast according to standard protocol. Computed tomographic angiography was obtained from the level of the aortic arch to the vertex following the uneventful administration of intravenous contrast. 3D images were generated on a dedicated workstation. Contrast information: 121 mL Optiray-350 COMPARISON: None available. FINDINGS: There is no acute intracranial hemorrhage. Ventricles are mildly enlarged, similar to 2013. There is no midline shift or mass effect. Cross-white matter differentiation is normal. The visualized portion of the orbits are normal. There is mild mucosal thickening of the ethmoid sinuses. Visualized portion of the mastoid air cells are normal. There is no fracture. There are calcifications of the right tentorium at the ambient cistern with similar calcifications seen along the left tentorium, which is likely responsible for the apparent hyperdensity reported on the outside hospital CT. Scattered subcentimeter lymph nodes are seen in the neck. None are pathologically enlarged or abnormally enhancing. The muscles of the neck are normal. Fascial planes are preserved and the deep spaces of the neck are normal. The visualized airway is widely patent. Spinal canal is normal in caliber. The vertebral bodies are normal. There is mild degenerative disc disease of the cervical spine. Included examination of the superior thorax shows no pulmonary infiltrates, suspicious nodules, or pleural effusions. Angiographic findings: The visualized aortic arch appears normal with normal configuration of the great vessels. The innominate artery and both subclavian arteries are normal in course and caliber. There is atherosclerotic calcifications at the carotid bifurcations bilaterally, resulting in mild stenosis bilaterally, 30-50% per NASCET criteria measuring 2.6 mm at the narrowest point on the right and 2.6 mm on the left, though difficult to precisely quantify due to associated calcifications. Distal carotid diameter is approximately 4.8 mm bilaterally. The vqtpsk-be-Ngpkxv is complete. The anterior and middle cerebral arteries are normal. The vertebral arteries are codominant. The basilar artery is normal. The posterior cerebral arteries are normal. There is no aneurysm or vascular malformation identified. IMPRESSION: 1. No acute intracranial abnormality. 2. No evidence of aneurysm. 3. Mild carotid stenosis (30-50%) due to atherosclerotic disease. Requested By: CHER YARBROUGH M.D. Dictated By: PHILLY BOWMAN M.D. on Jan 28 2017 9:27A This document has been electronically signed by: TARIK CORTEZ M.D. on Jan 28 2017 2:01P [id number] HARDING M.D. FINAL REPORT The radiology attending physician has personally reviewed this study, and has reviewed and/or edited this written report and agrees with it. Attending: GAGE MORGAN Requesting: CHER YARBROUGH Requesting Fax: Attending Fax: Attending ID: [id number] Requesting ID: [id number] Report To 1 ID: [id number] Report To 1 Name: , Report To 1 FAX: NextGen Order #: us Cher Yarbrough MD IMG CT PROCEDURES Edited Result - Final * CTA Neck W WO Contrast (01/28/2017 4:00 AM CDT) Anatomical Region Laterality Modality Head and Neck N/A Computed Tomogra phy 01/28/2017 4:00 AM CDT Narrative 01/28/2017 4:00 AM CDT Leticia HARDING M.D. FINAL REPORT The radiology attending physician has personally reviewed this study, and has reviewed and/or edited this written report and agrees with it. ACC# ??Date Time ??Exam [id number] Jan 27, 2017 23:00:[id number] Angio Head w/o ??and ??w cont [id number] Jan 27, 2017 23:00:[id number] Angio Neck ACC# ??Date Time ??Exam [id number] Jan 27, 2017 23:00:[id number] Angio Head w/o ??and ??w cont [id number] Jan 27, 2017 23:00:[id number] Angio Neck EXAMINATION: ?? Computed tomography angiography (CTA) of the head and neck without and with contrast HISTORY: Subarachnoid hemorrhage TECHNIQUE: Computed tomography of the head was performed without contrast according to standard protocol. Computed tomographic angiography was obtained from the level of the aortic arch to the vertex following the uneventful administration of intravenous contrast. 3D images were generated on a dedicated workstation. Contrast information: 121 mL Optiray-350 COMPARISON: None available. FINDINGS: There is no acute intracranial hemorrhage. Ventricles are mildly enlarged, similar to 2013. There is no midline shift or mass effect. Cross-white matter differentiation is normal. The visualized portion of the orbits are normal. There is mild mucosal thickening of the ethmoid sinuses. Visualized portion of the mastoid air cells are normal. There is no fracture. ??There are calcifications of the right tentorium at the ambient cistern with similar calcifications seen along the left tentorium, which is likely responsible for the apparent hyperdensity reported on the outside hospital CT. Scattered subcentimeter lymph nodes are seen in the neck. None are pathologically enlarged or abnormally enhancing. The muscles of the neck are normal. Fascial planes are preserved and the deep spaces of the neck are normal. The visualized airway is widely patent. Spinal canal is normal in caliber. The vertebral bodies are normal. There is mild degenerative disc disease of the cervical spine. Included examination of the superior thorax shows no pulmonary infiltrates, suspicious nodules, or pleural effusions. Angiographic findings: The visualized aortic arch appears normal with normal configuration of the great vessels. The innominate artery and both subclavian arteries are normal in course and caliber. There is atherosclerotic calcifications at the carotid bifurcations bilaterally, resulting in mild stenosis bilaterally, 30-50% per NASCET criteria measuring 2.6 mm at the narrowest point on the right and 2.6 mm on the left, though difficult to precisely quantify due to associated calcifications. Distal carotid diameter is approximately 4.8 mm bilaterally. The ygbhkm-yc-Mnbgrt is complete. The anterior and middle cerebral arteries are normal. The vertebral arteries are codominant. The basilar artery is normal. The posterior cerebral arteries are normal. There is no aneurysm or vascular malformation identified. ?? IMPRESSION: 1. No acute intracranial abnormality. 2. No evidence of aneurysm. 3. Mild carotid stenosis (30-50%) due to atherosclerotic disease. ?? Requested By: CHER YARBROUGH ??Leticia Dictated By: ?? PHILLY BOWMAN M.D. ??on Jan 28 2017 ??9:27A This document has been electronically signed by: TARIK CORTEZ M.D. on Jan 28 2017 ??2:01P TARIK CORTEZ M.D. PHILLY BOWMAN M.D. FINAL REPORT The radiology attending physician has personally reviewed this study, and has reviewed and/or edited this written report and agrees with it. Attending: ??CATHY, ??GAGE Requesting: ??VANE, ??CHER Requesting Fax: ?? Attending Fax: ?? Attending ID: ??[id number] Requesting ID: ??[id number] Report To 1 ID: ??[id number] ? Report To 1 Name: ??, ?? Report To 1 FAX: ?? NextGen Order #: ?? Procedure Note Miscellaneous, Not In File - 05/29/2017 Leticia HADRING M.D. FINAL REPORT The radiology attending physician has personally reviewed this study, and has reviewed and/or edited this written report and agrees with it. ACC# Date Time Exam [id number] Jan 27, 2017 23:00:[address] Angio Head w/o and w cont [id number] Jan 27, 2017 23:00:[address] Angio Neck ACC# Date Time Exam [id number] Jan 27, 2017 23:00:[address] Angio Head w/o and w cont [id number] Jan 27, 2017 23:00:[address] Angio Neck EXAMINATION: Computed tomography angiography (CTA) of the head and neck without and with contrast HISTORY: Subarachnoid hemorrhage TECHNIQUE: Computed tomography of the head was performed without contrast according to standard protocol. Computed tomographic angiography was obtained from the level of the aortic arch to the vertex following the uneventful administration of intravenous contrast. 3D images were generated on a dedicated workstation. Contrast information: 121 mL Optiray-350 COMPARISON: None available. FINDINGS: There is no acute intracranial hemorrhage. Ventricles are mildly enlarged, similar to 2013. There is no midline shift or mass effect. Cross-white matter differentiation is normal. The visualized portion of the orbits are normal. There is mild mucosal thickening of the ethmoid sinuses. Visualized portion of the mastoid air cells are normal. There is no fracture. There are calcifications of the right tentorium at the ambient cistern with similar calcifications seen along the left tentorium, which is likely responsible for the apparent hyperdensity reported on the outside hospital CT. Scattered subcentimeter lymph nodes are seen in the neck. None are pathologically enlarged or abnormally enhancing. The muscles of the neck are normal. Fascial planes are preserved and the deep spaces of the neck are normal. The visualized airway is widely patent. Spinal canal is normal in caliber. The vertebral bodies are normal. There is mild degenerative disc disease of the cervical spine. Included examination of the superior thorax shows no pulmonary infiltrates, suspicious nodules, or pleural effusions. Angiographic findings: The visualized aortic arch appears normal with normal configuration of the great vessels. The innominate artery and both subclavian arteries are normal in course and caliber. There is atherosclerotic calcifications at the carotid bifurcations bilaterally, resulting in mild stenosis bilaterally, 30-50% per NASCET criteria measuring 2.6 mm at the narrowest point on the right and 2.6 mm on the left, though difficult to precisely quantify due to associated calcifications. Distal carotid diameter is approximately 4.8 mm bilaterally. The xfbsvo-zp-Osifbp is complete. The anterior and middle cerebral arteries are normal. The vertebral arteries are codominant. The basilar artery is normal. The posterior cerebral arteries are normal. There is no aneurysm or vascular malformation identified. IMPRESSION: 1. No acute intracranial abnormality. 2. No evidence of aneurysm. 3. Mild carotid stenosis (30-50%) due to atherosclerotic disease. Requested By: CHER YARBROUGH M.D. Dictated By: PHILLY BOWMAN M.D. on Jan 28 2017 9:27A This document has been electronically signed by: TARIK CORTEZ M.D. on Jan 28 2017 2:01P Leticia HARDING M.D. FINAL REPORT The radiology attending physician has personally reviewed this study, and has reviewed and/or edited this written report and agrees with it. Attending: GAGE MORGAN Requesting: CHER YARBROUGH Requesting Fax: Attending Fax: Attending ID: [id number] Requesting ID: [id number] Report To 1 ID: [id number] Report To 1 Name: , Report To 1 FAX: NextGen Order #: Cher Yarbrough MD [facility] [place] CT PROCEDURES Edited Result - Final * CT Abdomen Pelvis W Contrast (01/28/2017 4:00 AM CDT) Anatomical Region Laterality Modality Body N/A Computed Tomogra phy 01/28/2017 4:00 AM CDT Narrative 01/28/2017 4:00 AM CDT MARTHA ESPARZA M.D. PHILLY BOWMAN M.D. FINAL REPORT The radiology attending physician has personally reviewed this study, and has reviewed and/or edited this written report and agrees with it. ACC# ??Date Time ??Exam [id number] Jan 27, 2017 23:00:[id number] Abd ??and ??Pelvis with cont EXAMINATION: ?? CT abdomen and pelvis with intravenous contrast HISTORY: ??Nausea vomiting and abdominal pain TECHNIQUE: ??Computed tomography images of the abdomen and pelvis were obtained after the uneventful ministration of 1 to 1 mL of Optiray 350 according to standard protocol. FINDINGS: ??There is no comparison. The included images of the thorax demonstrates bibasalar atelectasis. There is mild pulmonary edema. The heart is normal in size without pericardial effusion. The liver and gallbladder are normal. There is no intra or extrahepatic biliary ductal dilatation. The pancreas is normal. The spleen and adrenal glands are normal. There is cortical scarring of the kidneys bilaterally with a left lower pole cyst and a right mid zone cyst. The stomach and duodenum are normal. The small bowel is normal. The colon is normal. The bladder is distended and filled with urine. Calcifications are seen in the prostate. Atherosclerotic calcifications are present in the aorta. There is no lymphadenopathy. There is diffuse idiopathic hyperostosis of low lumbar spine. IMPRESSION: ?? No radiographic evidence for cause of abdominal pain Requested By: CHER YARBROUGH ??Leticia Dictated By: ?? PHILLY BOWMAN M.D. ??on Jan 28 2017 ??9:16A This document has been electronically signed by: MARTHA ESPARZA M.D. on Jan 28 2017 11:37A [id number] ENG M.D. FINAL REPORT The radiology attending physician has personally reviewed this study, and has reviewed and/or edited this written report and agrees with it. Attending: ??CATHY, ??GAGE Requesting: ??VANE, ??CHER Requesting Fax: ?? Attending Fax: ?? Attending ID: ??[id number] Requesting ID: ??[id number] Report To 1 ID: ??[id number] ? Report To 1 Name: ??, ?? Report To 1 FAX: ?? NextGen Order #: ?? Procedure Note Miscellaneous, Not In File - 05/29/2017 MARTHA ESPARZA M.D. PHILLY BOWMAN M.D. FINAL REPORT The radiology attending physician has personally reviewed this study, and has reviewed and/or edited this written report and agrees with it. ACC# Date Time Exam [id number] Jan 27, 2017 23:00:[address] Abd and Pelvis with cont EXAMINATION: CT abdomen and pelvis with intravenous contrast HISTORY: Nausea vomiting and abdominal pain TECHNIQUE: Computed tomography images of the abdomen and pelvis were obtained after the uneventful ministration of 1 to 1 mL of Optiray 350 according to standard protocol. FINDINGS: There is no comparison. The included images of the thorax demonstrates bibasalar atelectasis. There is mild pulmonary edema. The heart is normal in size without pericardial effusion. The liver and gallbladder are normal. There is no intra or extrahepatic biliary ductal dilatation. The pancreas is normal. The spleen and adrenal glands are normal. There is cortical scarring of the kidneys bilaterally with a left lower pole cyst and a right mid zone cyst. The stomach and duodenum are normal. The small bowel is normal. The colon is normal. The bladder is distended and filled with urine. Calcifications are seen in the prostate. Atherosclerotic calcifications are present in the aorta. There is no lymphadenopathy. There is diffuse idiopathic hyperostosis of low lumbar spine. IMPRESSION: No radiographic evidence for cause of abdominal pain Requested By: CHER YARBROUGH M.D. Dictated By: PHILLY BOWMAN M.D. on Jan 28 2017 9:16A This document has been electronically signed by: MARTHA ESPARZA M.D. on Jan 28 2017 11:37A [id number] ESPARZA M.D. PHILLY BOWMAN M.D. FINAL REPORT The radiology attending physician has personally reviewed this study, and has reviewed and/or edited this written report and agrees with it. Attending: GAGE MORGAN Requesting: CHER YARBROUGH Requesting Fax: Attending Fax: Attending ID: [id number] Requesting ID: [id number] Report To 1 ID: [id number] Report To 1 Name: , Report To 1 FAX: NextGen Order #: Cher Yarbrough MD IMG CT PROCEDURES Edited Result - Final * Lipid panel (01/28/2017 3:04 AM CDT) Cholesterol 191 30 - 200 mg/dL [facility] Comment: Interpretive Data Desirable: ?<200 mg/dL Borderline high: ??200-239 mg/dL High: ? > or = 240 mg/dL Literature Reference: National Cholesterol Education Program (NCEP) Expert Panel on Detection, Evaluation, and Treatment of High Blood Cholesterol in Adults (Adult Treatment Panel III). ??Circulation 2004; 110:227. Current interpretive data was last revised on 2015. Triglycerides 82 0 - 150 mg/dL [facility] Comment: Interpretive Data Desirable: ? < 150 mg/dL Borderline High: ? 150 - 199 mg/dL High: ?200 - 499 mg/dL Very High: ? > or = 499 mg/dL Literature Reference: See Cholesterol Current interpretive data was last revised on 2015. HDL 54 >=40 mg/dL [facility] Comment: Interpretive Data Less than 40 mg/dL - low; A major risk factor for heart disease. Greater than or equal to 60 mg/dL - High; ??considered protective of heart disease. Literature Reference: See Cholesterol Current interpretive data was last revised on 2015. LDL, calculated 121 10 - 129 mg/dL [facility] Comment: Interpretive Data Optimal: ? < 100 mg/dL Near Optimal: ?100 - 129 mg/dL Borderline High: ?? 130 - 159 mg/dL High: ?160 - 189 mg/dL Very high: ? > or = 190 mg/dL Literature Reference: See Cholesterol Current interpretive data was last revised on 2015. Non-HDL Cholesterol 137 mg/dL [facility] Comment: Interpretive Data When triglycerides are >200 mg/dL, non-HDL C is a secondary target of therapy, with a goal 30 mg/dL higher than the identified LDL-C goal. Reference: ??See Cholesterol Reference. Current interpretive data was last revised 2015. Blood specimen (specimen) 01/28/2017 3:04 AM CDT 01/28/2017 4:47 AM CDT us Sun Fajardo MD LAB BLOOD ORDERABLES Final Result [facility] Department [place] [address] * Hepatic function panel (01/28/2017 3:04 AM CDT) AST 36 10 - 50 Units/L [facility] ALT 23 7 - 55 Units/L [facility] Alk phos 51 40 - 130 Units/L [facility] Bilirubin, total 1.2 0.1 - 1.2 mg/dL [facility] Bilirubin, direct 0.2 0.1 - 0.3 mg/dL [facility] Protein, pl 6.5 6.5 - 8.5 g/dL [facility] Albumin 3.9 3.5 - 5.0 g/dL [facility] Blood specimen (specimen) 01/28/2017 3:04 AM CDT 01/28/2017 4:47 AM CDT Sun Fajardo MD LAB BLOOD ORDERABLES Final Result Performing Organization Address [facility] Co de Phone Number [facility] [place] [address] * (ABNORMAL) Osmolality, blood (01/28/2017 3:04 AM CDT) Pathologist [facility] PT 268(L) 275 - 300 mOsm/kg [facility] Blood specimen (specimen) 01/28/2017 3:04 AM CDT 01/28/2017 3:11 AM CDT Sun Fajardo MD LAB BLOOD ORDERABLES Final Result Performing Organization Address [facility] de Phone Number [facility] [place] [address] * TSH cascade (01/28/2017 3:04 AM CDT) Pathologist [facility] TSH 2.38 0.30 - 4.20 mcIUnit/mL [facility] Comment: Interpretive Data Hyperthyroid: ??<0.1 mcIUnit/mL Hypothyroid: ??>12.0 mcIUnit/mL Current interpretive data was last revised on 00. Blood specimen (specimen) 01/28/2017 3:04 AM CDT 01/28/2017 3:11 AM CDT Sun Fajardo MD LAB BLOOD ORDERABLES Final Result Performing Organization Address [facility] Co de Phone Number [facility] [place] [address] * (ABNORMAL) Basic metabolic panel (01/28/2017 3:04 AM CDT) Pathologist [facility] Sodium 127(L) 135 - 145 mmol/L [facility] Potassium, pl 3.9 3.3 - 4.9 mmol/L [facility] Chloride 95(L) 97 - 110 mmol/L [facility] CO2 22 22 - 32 mmol/L [facility] BUN 5(L) 8 - 25 mg/dL [facility] Glucose 123 70 - 199 mg/dL [facility] Creatinine 0.69(L) 0.80 - 1.30 mg/dL [facility] Calcium 8.5 8.5 - 10.3 mg/dL [facility] Anion gap 10 2 - 15 mmol/L [facility] Blood specimen (specimen) 01/28/2017 3:04 AM CDT 01/28/2017 3:11 AM CDT us Sun Fajardo MD LAB BLOOD ORDERABLES Final Result [facility] [place] [address] * XR Chest 1 Vw (01/28/2017 1:35 AM CDT) Anatomical Region Laterality Modality Body, Chest N/A Radiographic María ging 01/28/2017 1:35 AM CDT Narrative 01/28/2017 1:35 AM CDT Leticia ENG M.D. FINAL REPORT The radiology attending physician has personally reviewed this study, and has reviewed and/or edited this written report and agrees with it. ACC# ??Date Time ??Exam [id number] Jan 27, 2017 20:35:00 [id number] Chest 1 view Frontal EXAMINATION: ?? Chest one view frontal History: Shortness of breath, subarachnoid hemorrhage IMPRESSION: ?? A frontal view of the chest is performed and compared to the previous study dated 11/06/2006. Lungs are clear without focal consolidation, pleural effusion or pneumothorax. The cardiomediastinal silhouette is normal. Requested By: CHER YARBROUGH ??Leticia Dictated By: ?? DERRELL HERNANDEZ M.D. ??on Jan 27 2017 ??9:10P This document has been electronically signed by: MARTHA ESPARZA M.D. on Jan 28 2017 11:37A [id number] ENG, M.D. FINAL REPORT The radiology attending physician has personally reviewed this study, and has reviewed and/or edited this written report and agrees with it. Attending: ??CATHY, ??GAGE Requesting: ??VANE, ??CHER Requesting Fax: ?? Attending Fax: ?? Attending ID: ??[id number] Requesting ID: ??[id number] Report To 1 ID: ??[id number] ? Report To 1 Name: ??, ?? Report To 1 FAX: ?? NextGen Order #: ?? Procedure Note Miscellaneous, Not In File - 05/29/2017 MARTHA ESPARZA M.D. DERRELL HERNANDEZ M.D. FINAL REPORT The radiology attending physician has personally reviewed this study, and has reviewed and/or edited this written report and agrees with it. ACC# Date Time Exam [id number] Jan 27, 2017 20:35:00 08834 Chest 1 view Frontal EXAMINATION: Chest one view frontal History: Shortness of breath, subarachnoid hemorrhage IMPRESSION: A frontal view of the chest is performed and compared to the previous study dated 11/06/2006. Lungs are clear without focal consolidation, pleural effusion or pneumothorax. The cardiomediastinal silhouette is normal. Requested By: CHER YARBROUGH M.D. Dictated By: DERRELL HERNANDEZ M.D. on Jan 27 2017 9:10P This document has been electronically signed by: MARTHA ESPARZA M.D. on Jan 28 2017 11:37A [id number] ENG M.D. FINAL REPORT The radiology attending physician has personally reviewed this study, and has reviewed and/or edited this written report and agrees with it. Attending: GAGE MORGAN Requesting: CHER YARBROUGH Requesting Fax: Attending Fax: Attending ID: [id number] Requesting ID: [id number] Report To 1 ID: [id number] Report To 1 Name: , Report To 1 FAX: NextGen Order #: us Cher Yarbrough MD IMG XR PROCEDURES Edited Result - Final * (ABNORMAL) Urinalysis reflex to microscopic (01/28/2017 12:58 AM CDT) Color, ur Straw Yellow [facility] Clarity, ur Clear Clear [facility] Specific gravity, ur 1.010 1.003 - 1.030 [facility] pH, ur 6.0 5.0 - 8.0 [facility] Albumin, ur Negative Trace [facility] Glucose, ur ql 1+(A) Negative [facility] Ketones, ur Negative Negative [facility] Bilirubin, ur Negative Negative [facility] Blood, ur Negative Negative [facility] Urobilinogen, ur <2.0 <2.0 mg/dL [facility] Nitrites, ur Negative Negative [facility] Leukocyte esterase, ur Negative Negative [facility] Urine 01/28/2017 12:5 8 AM CDT 01/28/2017 1:13 AM CDT Cher Yarbrough MD LAB URINE ORDERABLES Final Resu lt [facility] [place] [address] * DISCHARGE LABORATORY CUMULATIVE REPORT (01/28/2017) Provider Scanning LAB BLOOD ORDERABLES Final Res ult * (ABNORMAL) Basic metabolic panel (01/27/2017 9:36 PM CDT) Sodium 123(L) 135 - 145 mmol/L [facility] Potassium, pl 3.6 3.3 - 4.9 mmol/L [facility] Chloride 91(L) 97 - 110 mmol/L [facility] CO2 19(L) 22 - 32 mmol/L [facility] BUN 6(L) 8 - 25 mg/dL [facility] Glucose 132 70 - 199 mg/dL [facility] Creatinine 0.63(L) 0.80 - 1.30 mg/dL [facility] Calcium 8.3(L) 8.5 - 10.3 mg/dL [facility] Anion gap 13 2 - 15 mmol/L [facility] Blood specimen (specimen) 01/27/2017 9:36 PM CDT 01/27/2017 10:10 PM CDT us Cher Yarbrough MD LAB BLOOD ORDERABLES Final Resu lt Performing Organization Address [facility] Co de Phone Number [facility] [place] [address] * (ABNORMAL) Creatine kinase (CK), total (01/27/2017 9:36 PM CDT) CK 361(H) 30 - 300 Units/L [facility] Blood specimen (specimen) 01/27/2017 9:36 PM CDT 01/27/2017 10:10 PM CDT us Cher Yarbrough MD LAB BLOOD ORDERABLES Final Resu lt Performing Organization Address [facility] Co de Phone Number [facility] [place] [address] * Magnesium (01/27/2017 9:36 PM CDT) Magnesium 1.5 1.4 - 2.5 mg/dL [facility] Blood specimen (specimen) 01/27/2017 9:36 PM CDT 01/27/2017 10:10 PM CDT us Cher Yarbrough MD LAB BLOOD ORDERABLES Final Resu lt Performing Organization Address [facility] [place] [address] * Phosphorus (01/27/2017 9:36 PM CDT) Phosphorus, pl 2.7 2.3 - 4.5 mg/dL [facility] Blood specimen (specimen) 01/27/2017 9:36 PM CDT 01/27/2017 10:10 PM CDT us Cher Yarbrough MD LAB BLOOD ORDERABLES Final Resu lt [facility] [place] [address] * Osmolality, urine (01/27/2017 9:22 PM CDT) Osmo, ur 408 51 - 1,499 mOsm/kg [facility] Urine 01/27/2017 9:22 PM CDT 01/27/2017 9:32 PM CDT Cher Yarbrough MD LAB URINE ORDERABLES Final Resu lt Performing Organization Address [facility] Co de Phone Number [facility] [place] [address] * Drug screen, urine (01/27/2017 9:22 PM CDT) Amphetamines, Class None detected [facility] Comment: Interpretive Data Immunoassay Screen cutoff level 500 ng/mL. Samples containing greater than 500 ng/mL of amphetamine/methamphetamine or other cross-reacting substances are reported as presumptive and submitted for confirmatory testing. See separate confirmatory results for final interpretation.Results are to be used for medical purposes only. ? Current interpretive data was last revised 2015. Barbiturates, Class None detected [facility] Comment: Interpretive Data Immunoassay Screen cutoff level 200 ng/mL. Samples containing greater than 200 ng/mL of barbiturates or other cross-reacting substances are reported as presumptive and submitted for confirmatory testing.See separate confirmatory results for final interpretation.Results are to be used for medical purposes only. Current interpretive data was last revised 2015. Benzodiazepines, ur None detected [facility] Comment: Interpretive Data Immunoassay Screen cutoff level 200 ng/mL. Samples containing greater than 200 ng/mL of benzodiazepines or other cross-reacting substances are reported as screen positive, but are not routinely submitted for confirmatory testing. If confirmation is required, please contact the laboratory. Results are to be used for medical purposes only. Current interpretive data was last revised 2015. Cannabinoids, Screen None detected [facility] Comment: Interpretive Data Immunoassay Screen cutoff level 50 ng/mL. Samples containing greater than 50 ng/mL of cannabinoids or other cross-reacting substances are reported as presumptive and submitted for confirmatory testing on obstetrics and pediatric patients only. ??Cannabinoids screen result is reported as screen positive for all other adults;confirmation is not performed unless requested. Results are to be used for medical purposes only. ? Current interpretive data was last revised 2015. Cocaine metabolite None detected [facility] Comment: Interpretive Data Immunoassay Screen cutoff level 150 ng/mL. Samples containing greater than 150 ng/mL of cocaine metabolite or other cross-reacting substances are reported as presumptive and submitted for confirmatory testing. See separate confirmatory results for final interpretation. Results are to be used for medical purposes only. Current interpretive data was last revised 2015. Methadone, ur None detected [facility] Comment: Interpretive Data Immunoassay Screen cutoff level 300 ng/mL. Samples containing greater than 300 ng/mL of methadone or other cross-reacting substances are reported as presumptive and submitted for confirmatory testing. ??See separate confirmatory results for final interpretation. ??Results are to be used for medical purposes only. ? Current interpretive data was last revised 2015. Opiates, ur None detected [facility] Comment: Interpretive Data Immunoassay Screen cutoff level 300 ng/mL. Samples containing greater than 300 ng/mL of opiates or other cross-reacting substances are reported as presumptive and submitted for confirmatory testing. ??See separate confirmatory results for final interpretation. ??Testing does not include opioids. ??Results are to be used for medical purposes only. Current interpretive data was last revised 2015. Oxycodone, ur None detected [facility] Comment: Interpretive Data Immunoassay Screen cutoff level 100 ng/mL. ??Samples containing greater than 100 ng/mL of oxycodone or other cross-reacting substances are reported as presumptive and submitted for confirmatory testing. ??See separate confirmatory results for final interpretation. ??Results are to be used for medical purposes only. Current interpretive data was last revised on 2015. Phencyclidine, ur None detected [facility] Comment: Interpretive Data Immunoassay Screen cutoff level 25 ng/mL. Samples containing greater than 25 ng/mL of phencyclidine (PCP) or other cross-reacting substances are reported as presumptive and submitted for confirmatory testing. ??See separate confirmatory results for final interpretation. Results are to be used for medical purposes only. ? Current interpretive data was last revised 2015. Urine 01/27/2017 9:22 PM CDT 01/27/2017 9:32 PM CDT Cher Yarbrough MD LAB URINE ORDERABLES Final Resu lt Performing Organization Address City/[facility]/ZIP Co de Phone Number [facility] [place] [address] * B Check Sample (01/27/2017 8:30 PM CDT) ABO Rh A Positive [facility] HCLL OTHER 01/27/2017 8:30 PM CDT 01/27/2017 8:36 PM CDT Notinfile Unknown LAB BLOOD ORDERABLES Final Res ult Performing Organization Address [facility] Co de Phone Number [facility] [place] [address] * Ammonia (01/27/2017 8:21 PM CDT) Ammonia 26 5 - 50 mcmol/L [facility] Blood specimen (specimen) 01/27/2017 8:21 PM CDT 01/27/2017 8:29 PM CDT Cher Yarbrough MD LAB BLOOD ORDERABLES Final Resu lt Performing Organization Address [facility] Co de Phone Number [facility] [place] [address] * Type and screen (01/27/2017 7:04 PM CDT) Pathologist [facility] Sara, indirect Negative [facility] ABO Rh A Positive [facility] Blood specimen (specimen) 01/27/2017 7:04 PM CDT 01/27/2017 7:10 PM CDT Result [facility] Cher Yarbrough MD LAB BLOOD BANK TEST ORDERABLES Edited Result - Final Performing Organization Address [facility] de Phone Number [facility] [place] [address] * Hemoglobin A1c (01/27/2017 7:04 PM CDT) [facility] Hgb A1C 5.1 4.0 - 6.0 % [facility] Estimated Average Glucose 100 mg/dL [facility] Comment: The ADA recommends reporting an estimated Average Glucose (eAG) with all Hemoglobin A1c results using the equation derived from a study of 507 normal and diabetic adults. ??Minority populations were underrepresented and children were not included. ?? (Diabetes Care 31:4746-0636, 2007). ??The eAG is not equivalent to a fasting glucose. Blood specimen (specimen) 01/27/2017 7:04 PM CDT 01/27/2017 7:28 PM CDT Cher Yarbrough MD LAB BLOOD ORDERABLES Edited Res ult - Final Performing Organization Address [facility] de Phone Number [facility] [place] [address] * Troponin I (01/27/2017 7:04 PM CDT) [facility] Troponin I <0.03 0.00 - 0.03 ng/mL [facility] Comment: Interpretive Data Serial determinations are recommended for the diagnosis of myocardial infarction (Third [place] Definition of Myocardial Infarction. ??J Am Matias Cardiol 2012;60:1581-98). Current interpretive data was last revised on 13. Blood specimen (specimen) 01/27/2017 7:04 PM CDT 01/27/2017 7:23 PM CDT Cher Yarbrough MD LAB BLOOD ORDERABLES Final Resu lt Performing Organization Address City/[facility]/ZIP Co de Phone Number [facility] [place] [address] * (ABNORMAL) Basic metabolic panel (01/27/2017 7:04 PM CDT) Pathologist [facility] Sodium 124(L) 135 - 145 mmol/L [facility] Potassium, pl 3.2(L) 3.3 - 4.9 mmol/L [facility] Chloride 91(L) 97 - 110 mmol/L [facility] CO2 21(L) 22 - 32 mmol/L [facility] BUN 7(L) 8 - 25 mg/dL [facility] Glucose 123 70 - 199 mg/dL [facility] Creatinine 0.68(L) 0.80 - 1.30 mg/dL [facility] Calcium 8.1(L) 8.5 - 10.3 mg/dL [facility] Anion gap 12 2 - 15 mmol/L [facility] Blood specimen (specimen) 01/27/2017 7:04 PM CDT 01/27/2017 7:23 PM CDT Cher Yarbrough MD LAB BLOOD ORDERABLES Final Resu lt Performing Organization Address City/[facility]/ZIP Co de Phone Number [facility] [place] [address] * (ABNORMAL) CBC without differential (01/27/2017 7:04 PM CDT) Pathologist [facility] WBC 6.89 3.80 - 9.90 K/cumm [facility] RBC 3.85(L) 4.30 - 5.80 M/cumm [facility] Hgb 12.7(L) 13.0 - 17.5 g/dL [facility] Hct 34.2(L) 38.9 - 50.3 % [facility] MCV 88.8 81.3 - 96.4 fL [facility] MCH 33.0 27.1 - 33.3 pg [facility] MCHC 37.1(H) 32.3 - 35.7 g/dL [facility] RDW CV 11.3 11.1 - 14.9 % [facility] RDW SD 36.2 35.7 - 48.1 fL [facility] NRBC 0.0 0.0 - 0.2 % [facility] NRBC abs 0.00 0.00 - 0.01 K/cumm [facility] Plt 158 150 - 400 K/cumm [facility] MPV 10.3 9.1 - 12.3 fL [facility] Blood specimen (specimen) 01/27/2017 7:04 PM CDT 01/27/2017 7:23 PM CDT us Cher Yarbrough MD LAB BLOOD ORDERABLES Final Resu lt [facility] [place] [address] documented in this encounter Visit Diagnoses Not on filedocumented in this encounter Care Teams Gauge Controller Relationship Specialty Start Date End Date Tommie Lu MD [address] [facility] [place] [address] PCP - General 11/10/16 11/27/17 documented as of this encounter
--- OUTSIDE RECORDS SUMMARY | 2024-08-13 04:57 | XMS_ITS | Encounter Summary ---
Author Organization [facility] Healthcare Address [address] [place] [id number] Care Team Providers Care [employer] Principal Name Role Phone Tommie Lu MD Primary Care Provider + Encounter Details Date Type Department Care Team (Late st Contact Info) Description 03/21/2008 12:11 PM CDT - 03/21/2008 11:59 PM CDT Hospital Encounter [facility] Tommie Lu MD [address] [address] Social History Tobacco Use Types Packs/Day Years Used Date Smoking Tobacco: Never Assessed Sex and Gender Information Value Date Recorded Sex Assigned at Not on file 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
--- OUTSIDE RECORDS SUMMARY | 2024-08-13 04:57 | XMS_ITS | Encounter Summary ---
Author Organization [facility] Healthcare Address [address] [place] [address] Care Team Providers Care Dual Hose Cementer Name Role Phone Tommie Lu MD Primary Care Provider + Encounter Details Date Type Department Care Team (Late st Contact Info) Description 07/01/2015 10:56 AM DELIVERY DIRECTOR - 07/01/2015 11:59 PM DELIVERY DIRECTOR Hospital Encounter [facility] Dizziness and giddiness Social History Tobacco Use Types Packs/Day Years Used Date Smoking Tobacco: Former Alcohol Use Standard Drinks/Week Comments Yes 0 (1 standard drink = 0.6 oz pur e alcohol) Sex and Gender Information Value Date Recorded Sex Assigned at Not on file 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 [place] [address] PCP - General 12/29/13 11/09/16 documented as of this encounter
--- OUTSIDE RECORDS SUMMARY | 2024-08-13 04:57 | XMS_ITS | Encounter Summary ---
Author Organization [facility] Healthcare Address [address] [place] [address] Care Team Providers Care Trench Digger Name Role Phone Tommie Lu MD Primary Care Provider + Encounter Details Date Type Department Care Team (Late st Contact Info) Description 12/02/2008 12:01 AM CDT - 12/02/2008 11:59 PM CDT Hospital Encounter [facility] Mary Castillo MD [address] [place] [address] [facility] [[email or web address] [place] [address] Special screening for malignant neoplasms, colon; Benign neoplasm of colon; Anorectal polyp; Internal hemorrhoids Social History Tobacco Use Types Packs/Day Years Used Date Smoking Tobacco: Never Assessed Sex and Gender Information Value Date Recorded Sex Assigned at Not on file 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
--- OUTSIDE RECORDS SUMMARY | 2024-08-13 04:57 | XMS_ITS | Encounter Summary ---
Author Organization [facility] Healthcare Address [address] [place] [address] Care Team Providers Care Clinical Documentation Spec Name Role Phone Tommie Lu MD Primary Care Provider + Encounter Details Date Type Department Care Team (Late st Contact Info) Description 07/01/2015 9:36 AM RIVER CAPTAIN - 07/01/2015 12:37 PM RIVER CAPTAIN Hospital Encounter [facility] [place] [address] [place] [address] Labyrinthitis; Essential (primary) hypertension; Personal history of nicotine dependence Social History Tobacco Use Types Packs/Day Years Used Date Smoking Tobacco: Former Alcohol Use Standard Drinks/Week Comments Yes 0 (1 standard drink = 0.6 oz pur e alcohol) Sex and Gender Information Value Date Recorded Sex Assigned at Not on file Legal Sex Male 8:13 AM RIVER CAPTAIN Gender Identity Not on file Sexual Orientation [...] Procedure Name Priority Date/Time Associated Diagnosis Comments SERUM ESTIMATED GLOMERULAR FILTRATION RATE Routine 07/01/2015 9:45 AM RIVER CAPTAIN PLASMA BASIC METABOLIC PANEL Routine 07/01/2015 9:45 AM RIVER CAPTAIN BLOOD PROTHROMBIN TIME (PT) Routine 07/01/2015 9:45 AM RIVER CAPTAIN BLOOD PARTIAL THROMBOPLASTIN TIME (PTT) Routine 07/01/2015 9:45 AM RIVER CAPTAIN BLOOD D-DIMER Routine 07/01/2015 9:45 AM RIVER CAPTAIN BLOOD CELL COUNT (CBC), MORPHOLOGIC EXAM Routine 07/01/2015 9:45 AM RIVER CAPTAIN BLOOD CELL MORPHOLOGIC EXAM Routine 07/01/2015 9:45 AM RIVER CAPTAIN BLOOD GLUCOSE, POC Routine 07/01/2015 9: 40 AM RIVER CAPTAIN ELECTROCARDIOGRAPHY (ECG) 07/01/2015 DISCHARGE LABORATORY CUMULATIVE REPORT 07/01/2015 documented in this encounter Results * (ABNORMAL) Blood D-dimer (07/01/2015 9:45 AM RIVER CAPTAIN) D-dimer <150(L) 150 - 230 ng/ml D-DU HISTORICAL RESULTS Comment: Interpretive Data This D-dimer test is approved by the FDA to exclude suspected PE and DVT in outpatients when the result is <230 ng/mL in conjunction with a pre-test probability score of low or moderate using the Wells criteria. Current Interpretive Data was last revised on 2015. Blood specimen (specimen) 07/01/2015 9:45 AM RIVER CAPTAIN us Historical Provider LAB BLOOD ORDERABLES Mariza l Result HISTORICAL RESULTS * (ABNORMAL) Plasma basic metabolic panel (07/01/2015 9:45 AM RIVER CAPTAIN) Sodium 136 135 - 145 mmol/L HISTORICAL RESULTS K, pl 3.9 3.5 - 5.1 mmol/L HISTORICAL RESULTS Chloride 99 97 - 110 mmol/L HISTORICAL RESULTS CO2 24 22 - 32 mmol/L HISTORICAL RESULTS A. gap 17(H) 8 - 16 mmol/L HISTORICAL RESULTS Glucose 118 70 - 199 mg/dl HISTORICAL RESULTS Comment: Interpretive Data Note:The glucose is assumed non fasting Fastin-99 mg/dL Random: ??70-199 mg/dL Either a fasting glucose > 126 mg/dL or a random glucose > 200 mg/dL plus symptoms is diagnostic of diabetes when confirmed on another day. Fasting values > 100 mg/dL but < 125 mg/dL are diagnostic of impaired fasting glucose. Current interpretive data was last revised on 2014. BUN 15.2 8.0 - 25.0 mg/dl HISTORICAL RESULTS Creatinine 0.72 0.70 - 1.30 mg/dl HISTORICAL RESULTS Calcium 9.3 8.6 - 10.2 mg/dl HISTORICAL RESULTS BUN/creat ratio 21(H) 10 - 20 HIST ORICAL RESULTS Plasma 07/01/2015 9:45 AM RIVER CAPTAIN Historical Provider MD LAB BLOOD ORDERABLES Mariza l Result Performing Organization Address [facility] de Phone Number HISTORICAL RESULTS * Blood partial thromboplastin time (PTT) (07/01/2015 9:45 AM RIVER CAPTAIN) PTT 30.9 25.0 - 37.0 seconds HISTORICAL RESULTS Blood specimen (specimen) 07/01/2015 9:45 AM RIVER CAPTAIN Historical Provider LAB BLOOD ORDERABLES Mariza l Result Performing Organization Address [facility] de Phone Number HISTORICAL RESULTS * Blood prothrombin time (PT) (07/01/2015 9:45 AM RIVER CAPTAIN) Prothrombin time (PT) 10.2 9.5 - 12.5 seconds HISTORICAL RESULTS INR 0.95 0.90 - 1.20 HISTORIC AL RESULTS Comment: Interpretive Data Recommended ranges for Protime INR: 2.0 - 3.0 Most indications for Warfarin therapy (e.g. Treatment of DVT, PE, bioprosthetic valve replacement, prophylaxis venous thrombosis, atrial fibrillation). 2.5 - 3.5 Mechanical mitral valve or dual mechanical mitral and Aortic valve replacement. Current Interpretive Data was last revised on 2015. Blood specimen (specimen) 07/01/2015 9:45 AM RIVER CAPTAIN Historical Provider LAB BLOOD ORDERABLES Mariza wilkins Result Performing Organization Address City/[facility] de Phone Number HISTORICAL RESULTS * (ABNORMAL) Blood cell morphologic exam (07/01/2015 9:45 AM RIVER CAPTAIN) Neutrophils 44.5 44.0 - 80.0 % HISTORICAL RESULTS Immature granulocytes 0.4 0.0 - 1.0 % HISTORICAL RESULTS Lymphocytes 37.7 13.0 - 44.0 % HISTORICAL RESULTS Monos 11.2(H) 2.0 - 11.0 % HISTORICAL RESULTS Eosinophils 5.4 0.0 - 6.0 % HISTORICAL RESULTS Basophils 0.8 0.0 - 3.0 % HISTORICAL RESULTS Neutrophils, abs 2.2 1.6 - 7.0 K/cumm HISTORICAL RESULTS Immature granulocyte, abs 0.02 0.00 - 0.20 K/cumm HISTORICAL RESULTS Lymphocytes, abs 1.9 0.5 - 4.3 K/cumm HISTORICAL RESULTS Monocytes, absolute 0.6 0.1 - 1.0 K/cumm HISTORICAL RESULTS Eosinophils, abs 0.3 0.0 - 0.6 K/cumm HISTORICAL RESULTS Basophils, abs 0.0 0.0 - 0.3 K/cumm HISTORICAL RESULTS Blood specimen (specimen) 07/01/2015 9:45 AM RIVER CAPTAIN Historical Provider LAB BLOOD ORDERABLES Mariza wilkins Result Performing Organization Address [facility] de Phone Number HISTORICAL RESULTS * (ABNORMAL) Blood cell count (CBC), morphologic exam (07/01/2015 9:45 AM RIVER CAPTAIN) WBC 5.0 3.8 - 9.8 K/cumm HISTORICAL RESULTS RBC 4.47(L) 4.50 - 5.70 M/cumm HISTORICAL RESULTS Hgb 14.9 13.8 - 17.2 g/dl HISTORICAL RESULTS Hct 42.7 40.7 - 50.3 % HISTORICAL RESULTS MCV 95.5 80.0 - 100.0 fl HISTORICAL RESULTS MCH 33.3 26.7 - 33.7 pg HISTORICAL RESULTS MCHC 34.9 32.7 - 36.0 g/dl HISTORICAL RESULTS Rdw 11.9 11.5 - 14.6 % HISTORICAL RESULTS Platelets 166 140 - 440 K/cumm HISTORICAL RESULTS MPV 9.7 8.0 - 12.0 fl HISTORICAL RESULTS NRBC 0.0 0.0 - 0.0 % HISTORIC AL RESULTS NRBC, abs 0.00 0.00 - 0.00 K/cumm HISTORICAL RESULTS Blood specimen (specimen) 07/01/2015 9:45 AM RIVER CAPTAIN Historical Provider LAB BLOOD ORDERABLES Mariza l Result Performing Organization Address City/State/[facility] Co de Phone Number HISTORICAL RESULTS * Serum estimated glomerular filtration rate (07/01/2015 9:45 AM RIVER CAPTAIN) eGFR >60 ml/min/1.7 3 m2 HISTORICAL RESULTS Comment: Interpretation of Estimated GFR (eGFR): Normal ?>/= 60 mL/min/1.73m2 Possible Chronic Kidney Disease ??15 - 59 mL/min/1.73m2 Possible Kidney Failure ?< 15 ??mL/min/1.73m2 If -Lithuanian multiply value by 1.16. ??Estimated glomerular filtration rate is determined by the CKD-EPI equation recommended by the National Kidney Foundation (KDIGO 2012 Clinical Practice Guideline for the Evaluation and Management of Chronic Kidney Disease. ??Kidney Intnl Suppl Aug 2012;3:1). ??The CKD-EPI equation should not be used in acute renal failure or acute kidney injury and is not valid in children. Serum 07/01/2015 9:45 AM RIVER CAPTAIN Historical Provider LAB BLOOD ORDERABLES Mariza l Result HISTORICAL RESULTS * (ABNORMAL) Blood glucose, POC (07/01/2015 9:40 AM RIVER CAPTAIN) Glucose, POC, bld 115(H) 71 - 98 mg/dl HISTORICAL RESULTS Blood specimen (specimen) 07/01/2015 9:40 AM RIVER CAPTAIN Historical Provider LAB BLOOD ORDERABLES Mariza l Result HISTORICAL RESULTS * DISCHARGE LABORATORY CUMULATIVE REPORT (07/01/2015) Narrative 07/01/2015 Ordered by an unspecified provider. Historical Provider LAB BLOOD ORDERABLES Mariza l Result * ELECTROCARDIOGRAPHY (ECG) (07/01/2015) Narrative 07/01/2015 Ordered by an unspecified provider. Historical Provider ECG ORDERABLES Final Res ult documented in this encounter Visit Diagnoses Diagnosis Labyrinthitis Essential (primary) hypertension Unspecified essential hypertension Personal history of nicotine dependence documented in this encounter Care Teams Clinical Documentation Spec Relationship Specialty Start Date End Date Tommie Lu MD [address] [place] [address] PCP - General 12/29/13 11/09/16 documented as of this encounter
--- OUTSIDE RECORDS SUMMARY | 2024-08-13 04:57 | XMS_ITS | Encounter Summary ---
Author Organization [facility] Healthcare Address [address] [place] [address] Care Team Providers Care Chemical Plant Manager Name Role Phone Tommie Lu MD Primary Care Provider + Encounter Details Date Type Department Care Team (Late st Contact Info) Description 01/27/2017 3:26 PM CDT - 01/27/2017 6:03 PM CDT Emergency [facility] Emergency Department [address] [place] [address] Reilly Elliott MD [address] [place] [address] Discharge Disposition: Discharge to a short term hospital for IP Social History Tobacco Use Types Packs/Day Years Used Date Smoking Tobacco: Former Alcohol Use Standard Drinks/Week Comments Yes 0 (1 standard drink = 0.6 oz pur e alcohol) Sex and Gender Information Value Date Recorded Sex Assigned at Not on file 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 Gender Identity Not on file Sexual Orientation Not on file documented as of this encounter Medications at Time of Discharge atorvastatin (LIPITOR) 40 mg tablet take 1 tablet by oral route every day 90 3 05/02/2016 02/15/2017 cholecalciferol (VITAMIN D3) 1,000 unit capsule take 1 capsule daily 0 0 03/24/2015 03/05/2017 meclizine (ANTIVERT) 25 mg tablet take 1 tablet by ORAL route 4 times every day as needed 60 3 07/27/2015 02/15/2017 thiamine (vitamin B-1) 100 mg tablet take 1 Tablet by Oral route once 0 0 03/24/2015 03/05/2017 documented as of this encounter Discharge Disposition Disposition Code Departure Means Destination Discharge to a short term hospital for IP documented in this encounter Plan of Treatment Not on file documented as of this encounter Procedures Procedure Name Priority Date/Time Associated Diagnosis Comments CT HEAD WO CONTRAST Routine 01/27/2017 9 :43 PM CDT EGFR STAT 01/27/2017 4:24 PM CDT DIFFERENTIAL AUTO STAT 01/27/2017 4:2 4 PM CDT PRO B-TYPE NATRIURETIC PEPTIDE STAT 01/27/2017 4:24 PM CDT CBC WITH AUTO DIFFERENTIAL STAT 01/27 4:24 PM CDT APTT STAT 01/27/2017 4:24 PM CDT PROTIME-INR STAT 01/27/2017 4:24 PM CDT TROPONIN T STAT 01/27/2017 4:24 PM CDT ETHANOL STAT 01/27/2017 4:24 PM CDT COMPREHENSIVE METABOLIC PANEL STAT 01/27/2017 4:24 PM CDT ELECTROCARDIOGRAPHY (ECG) 01/27/2017 SCAN - RADIOLOGY/IMAGING 01/27/2017 DISCHARGE LABORATORY CUMULATIVE REPORT 01/27/2017 12:00 AM CDT DISCHARGE LABORATORY CUMULATIVE REPORT 01/27/2017 documented in this encounter Results * CT Head WO Contrast (01/27/2017 9:43 PM CDT) Anatomical Region Laterality Modality Head and Neck N/A Computed Tomogra phy 01/27/2017 9:43 PM CDT Narrative 01/27/2017 9:[address] [place] ?[id number] ??Acc#: ??[id number] DATE OF EXAM: ??Jan 27 2017 ?? PROCEDURE: CT [place] ?[id number] HISTORY: Syncope. ??Dizziness. ??High blood pressure. COMPARISON: 07/01/2015 study [facility] also prior study of 12/25/2012. TECHNIQUE: Helical CT scan of the head obtained noncontrast. FINDINGS: Some subtle increased density within brainstem cisterns on axial image #12 raise the possibly some minimal subarachnoid hemorrhage. No midline shift is noted. ??Brainstem cisterns are intact. IMPRESSION: SUBTLE INCREASED DENSITY WITHIN BRAINSTEM CISTERNS ON ONE OF THE AXIAL IMAGES, RAISING THE POSSIBILITY OF SOME MINIMAL SUBARACHNOID HEMORRHAGE.. DISCUSSED WITH DR. ELLIOTT 01/27/2017 AT 12:00 PM. Electronically signed by: Reilly Espinosa M.D Interpreting Physician: ??REILLY ESPINOSA M.D. ??Read on: ??Jan 27 2017 ??5:16P Transcribed by: ??PSC ??On: Jan 27 2017 ??5:13P Approved Electronically by: ??REILLY ESPINOSA M.D. ??on: ??Jan 27 2017 ??5:13P Ordering DR: DR REILLY ELLIOTT Attending DR: DR MATY GUTIERRES Attending: ??DR MATY GUTIERRES Requesting: ??DR REILLY ELLIOTT Requesting Fax: ??[phone] Attending Fax: ??-- Attending ID: ??[id number] Requesting ID: ??[id number] Report To 1 ID: ??[id number] Report To 1 Name: ??DR MATY GUTIERRES Report To 1 FAX: ??-- NextGen Order #: ?? Procedure Note Miscellaneous, Not In File / Provider, MD Sanna - 01/29/[place] [id number] Acc#: [id number] DATE OF EXAM: Jan 27 2017 PROCEDURE: [place] [id number] HISTORY: Syncope. Dizziness. High blood pressure. COMPARISON: 07/01/2015 study [facility] also prior study of 12/25/2012. TECHNIQUE: Helical CT scan of the head obtained noncontrast. FINDINGS: Some subtle increased density within brainstem cisterns on axial image #12 raise the possibly some minimal subarachnoid hemorrhage. No midline shift is noted. Brainstem cisterns are intact. IMPRESSION: SUBTLE INCREASED DENSITY WITHIN BRAINSTEM CISTERNS ON ONE OF THE AXIAL IMAGES, RAISING THE POSSIBILITY OF SOME MINIMAL SUBARACHNOID HEMORRHAGE.. DISCUSSED WITH DR. ELLIOTT 01/27/2017 AT 12:00 PM. Electronically signed by: Reilly Espinosa M.D Interpreting Physician: REILLY ESPINOSA M.D. Read on: Jan 27 2017 5:16P Transcribed by: [facility] On: Jan 27 2017 5:13P Approved Electronically by: REILLY ESPINOSA M.D. on: Jan 27 2017 5:13P Ordering DR: DR REILLY ELLIOTT Attending DR: DR MATY GUTIERRES Attending: DR MATY GUTIERRES Requesting: DR REILLY ELLIOTT Requesting Attending Fax: -- Attending ID: [id number] Requesting ID: [id number] Report To 1 ID: [id number] Report To 1 Name: DR MATY GUTIERRES Report To 1 FAX: -- NextGen Order #: us Not In File Miscellaneous IMG CT PROCEDURES Mariza l Result * Protime-INR (01/27/2017 4:24 PM CDT) PT 11.8 9.5 - 12.5 sec [facility] INR 1.04 0.90 - 1.20 [facility] Comment: Interpretive Data Recommended ranges for Protime INR: 2.0 - 3.0 Most indications for Warfarin therapy (e.g. Treatment of DVT, PE, bioprosthetic valve replacement, prophylaxis venous thrombosis, atrial fibrillation). 2.5 - 3.5 Mechanical mitral valve or dual mechanical mitral and Aortic valve replacement. Current Interpretive Data was last revised on 2015. Blood specimen (specimen) 01/27/2017 4:24 PM CDT 01/27/2017 5:29 PM CDT us Reilly Elliott MD LAB BLOOD ORDERABLES Final Result [facility]) 1 [facility] [place] [address] * aPTT (01/27/2017 4:24 PM CDT) aPTT 27.7 25.0 - 37.0 sec [facility] Blood specimen (specimen) 01/27/2017 4:24 PM CDT 01/27/2017 5:29 PM CDT Reilly Elliott MD LAB BLOOD ORDERABLES Final Result Performing Organization Address City/State/[facility] de Phone Number [facility] ([place] 1 [facility] [place] [address] * Differential, auto (01/27/2017 4:24 PM CDT) Neutrophil pct 69.3 44.0 - 80.0 % [facility] Imm gran pct 0.4 0.0 - 1.0 % [facility] Lymphocyte pct 20.9 13.0 - 44.0 % [facility] Monocyte pct 8.5 2.0 - 11.0 % [facility] Eosinophil pct 0.5 0.0 - 6.0 % [facility] Basophil pct 0.4 0.0 - 3.0 % [facility] Neutrophil abs 5.60 1.60 - 7.00 K/cumm [facility] Imm gran abs 0.03 0.00 - 0.20 K/cumm [facility] Lymphocyte abs 1.69 0.50 - 4.30 K/cumm [facility] Monocyte abs 0.69 0.10 - 1.00 K/cumm [facility] Eosinophil abs 0.04 0.00 - 0.60 K/cumm [facility]) Basophil abs 0.03 0.00 - 0.30 K/cumm [facility] Blood specimen (specimen) 01/27/2017 4:24 PM CDT 01/27/2017 4:28 PM CDT Reilly Elliott MD LAB BLOOD ORDERABLES Final Result [facility] 1 [facility] [place] [address] * (ABNORMAL) CBC with auto differential (01/27/2017 4:24 PM CDT) Pathologist [facility] WBC 8.08 3.80 - 9.80 K/cumm [facility] RBC 4.16(L) 4.50 - 5.70 M/cumm [facility] Hgb 13.6(L) 13.8 - 17.2 g/dL [facility] Hct 36.4(L) 40.7 - 50.3 % [facility] MCV 87.5 80.0 - 100.0 fL [facility] MCH 32.7 26.7 - 33.7 pg [facility] MCHC 37.4(H) 32.7 - 36.0 g/dL [facility] RDW CV 11.0(L) 11.5 - 14.6 % [facility] Plt 174 140 - 440 K/cumm [facility] MPV 10.5 8.0 - 12.0 fL [facility] NRBC 0.0 0.0 - 0.0 % [facility]) NRBC abs 0.00 0.00 - 0.00 K/cumm [facility] Blood specimen (specimen) 01/27/2017 4:24 PM CDT 01/27/2017 4:28 PM CDT us Reilly Elliott MD LAB BLOOD ORDERABLES Final Result [facility] 1 [facility] [place] [address] * (ABNORMAL) Pro B-type natriuretic peptide (01/27/2017 4:24 PM CDT) NT-proBNP 146(H) 10 - 100 pg/mL [facility] Comment: Diagnosis of Congestive Heart Failure: ??Heart Failure Unlikely: All Ages ?Less than 300 pg/ml ??Heart Failure Possible: Less than 50Y ?? 300-450 pg/ml ?50-75 Y ? 300-900 pg/ml ?75-160Y ? 300-1800 pg/ml ?Heart Failure Likely: ?? Less than 50Y ?? Greater than 450 pg/ml ?50-75 Y ? Greater than 900 pg/ml ?75-160 Y ?Greater than 1,800 pg/ml ??Renal Failure: ?All Ages ?Greater than 1,200 pg/ml Current interpretive data was last revised on 2014. Blood specimen (specimen) 01/27/2017 4:24 PM CDT 01/27/2017 4:28 PM CDT us Reilly Elliott MD LAB BLOOD ORDERABLES Final Result Performing Organization Address City/State/[facility] Co de Phone Number [facility] ([place]) 1 [facility] [place] [address] * eGFR (01/27/2017 4:24 PM CDT) eGFR >60 mL/min/1.7 3 m2 [facility] ([place]) Comment: Interpretive Data Reference Interval Normal ?>/= 90 mL/min/1.73m2 Mildly decreased* ? 60 - 89 mL/min/1.73m2 Mildly to moderately decreased ?45 - 59 mL/min/1.73m2 Moderately to severely decreased ??30 - 44 mL/min/1.73m2 Severely decreased ?15 - 29 mL/min/1.73m2 Kidney Failure ?< 15 ??mL/min/1.73m2 *Relative to young adult level If -Pakistani multiply value by 1.16. Estimated glomerular filtration rate is determined by the CKD-EPI equation recommended by the National Kidney Foundation (KDIGO 2012 Clinical Practice Guideline for the Evaluation and Management of Chronic Kidney Disease. Kidney Intnl Suppl Aug 2012;3:1). The CKD-EPI equation should not be used for patients with unstable renal function and has not been validated in children and those over 70. Current interpretive data was last reviewed 2016. Blood specimen (specimen) 01/27/2017 4:24 PM CDT 01/27/2017 4:28 PM CDT us Reilly Elliott MD LAB BLOOD ORDERABLES Final Result [facility] ([place]) 1 [facility] [place] [address] * (ABNORMAL) Comprehensive metabolic panel (01/27/2017 4:24 PM CDT) Sodium 122(L) 135 - 145 mmol/L [facility] Potassium 3.0(C) 3.5 - 5.1 mmol/L [facility] ([place]) Comment:Critical result call ed to and read back by Cortney Miller (ER) on 01/27/2017 17:00:29 CDT to [id number]. Chloride 86(L) 97 - 110 mmol/L [facility]) CO2 18(L) 22 - 32 mmol/L [facility]) Anion gap 18(H) 8 - 16 mmol/L [facility]) Glucose 137 70 - 199 mg/dL [facility] Comment: Interpretive Data Note:The glucose is assumed non fasting Fastin-99 mg/dL Random: ??70-199 mg/dL Either a fasting glucose > 126 mg/dL or a random glucose > 200 mg/dL plus symptoms is diagnostic of diabetes when confirmed on another day. Fasting values > 100 mg/dL but < 125 mg/dL are diagnostic of impaired fasting glucose. Current interpretive data was last revised on 2014. BUN 8.9 8.0 - 25.0 mg/dL [facility] Creatinine 0.63(L) 0.70 - 1.30 mg/dL [facility]) BUN/creat ratio 14 10 - 20 [facility]) Calcium 9.2 8.6 - 10.2 mg/dL [facility]) Protein, sr 6.9 6.0 - 8.4 g/dL [facility]) Albumin 4.2 3.6 - 5.0 g/dL [facility]) Alk phos 56 40 - 130 Units/L [facility] ALT 19 5 - 50 Units/L [facility]) AST 28 10 - 45 Units/L [facility]) Bilirubin, total 0.7 <=1.2 mg/dL [facility]) Blood specimen (specimen) 01/27/2017 4:24 PM CDT 01/27/2017 4:28 PM CDT us Reilly Elliott MD LAB BLOOD ORDERABLES Final Result [facility] ([place]) 1 [facility] [place] [address] * Troponin T (01/27/2017 4:24 PM CDT) Troponin T <0.01 0.00 - 0.06 ng/mL [facility] Comment: Interpretive Data Troponin table: ? Negative ? 0.00-0.06 ng/ml ? Indeterminate ?0.07-0.10 ng/ml ? Consistent with Myocardial Injury ?Greater than 0.10 ng/ml ?? Current interpretive data was last revised on 2014 Blood specimen (specimen) 01/27/2017 4:24 PM CDT 01/27/2017 4:28 PM CDT Reilly Elliott MD LAB BLOOD ORDERABLES Final Result Performing Organization Address City/[facility] Co de Phone Number [facility] ([place]) 1 [facility] [place] [address] * Ethanol (01/27/2017 4:24 PM CDT) Ethanol <10 <=10 mg/dL [facility] ([place]) Comment: Interpretive Data Normal: ??Less than 10 mg/dL = No Ethanol detected For medical purposes Current interpretive data was last revised on 2014. Blood specimen (specimen) 01/27/2017 4:24 PM CDT 01/27/2017 4:28 PM CDT Reilly Elliott MD LAB BLOOD ORDERABLES Final Result Performing Organization Address City/[facility] Co de Phone Number [facility] ([place]) 1 [facility] [place] [address] * DISCHARGE LABORATORY CUMULATIVE REPORT (01/27/2017 12:00 AM CDT) Narrative 01/27/2017 12:00 AM CDT Ordered by an unspecified provider. Historical Provider LAB BLOOD ORDERABLES Mariza l Result * DISCHARGE LABORATORY CUMULATIVE REPORT (01/27/2017) Provider Scanning LAB BLOOD ORDERABLES Final Res ult * SCAN - RADIOLOGY/IMAGING (01/27/2017) Anatomical Region Laterality Modality Other us Provider Scanning Final Result * ELECTROCARDIOGRAPHY (ECG) (01/27/2017) us Provider Scanning ECG ORDERABLES Final Result documented in this encounter Visit Diagnoses Not on filedocumented in this encounter Care Teams Chemical Plant Manager Relationship Specialty Start Date End Date Tommie Lu MD [address] [place] [place] [address] PCP - General 11/10/16 11/27/17 documented as of this encounter
--- OUTSIDE RECORDS SUMMARY | 2024-08-13 04:57 | XMS_ITS | Encounter Summary ---
Author Organization [facility] Healthcare Address [address] [place] [address] Care Team Providers Care Senior Designer/Art Director Name Role Phone Tommie Lu MD Primary Care Provider + Encounter Details Date Type Department Care Team (Late st Contact Info) Description 10/22/2009 9:49 AM DOOR TENDER - 10/22/2009 11:42 AM [facility] Hospital Encounter [facility] Luis Cintron MD [address] [address] Georges Birch MD [address] [place] [id number] Sprain of wrist; Myalgia and myositis; Fall from one level to another; Place of occurrence, industrial places and premises; Civilian activity done for income or pay Social History Tobacco Use Types Packs/Day Years Used Date Smoking Tobacco: Never Assessed Sex and Gender Information Value Date Recorded Sex Assigned at Not on file Legal Sex Male 8:13 AM DOOR TENDER Gender Identity Not on file Sexual Orientation Not on file documented as of this encounter Plan of Treatment Not on file documented as of this encounter Visit Diagnoses Diagnosis Sprain of wrist Sprain and strain of unspecified site of wrist Myalgia and myositis Unspecified myalgia and myositis Fall from one level to another Other accidental fall from one level to another Place of occurrence, industrial places and premises Civilian activity done for income or pay documented in this encounter Care Teams Senior Designer/Art Director Relationship Specialty Start Date End Date Tommie Lu MD [address] [place] [address] PCP - General 10/22/07 12/28/13 documented as of this encounter
--- OUTSIDE RECORDS SUMMARY | 2024-08-13 04:57 | XMS_ITS | Encounter Summary ---
Author Organization [facility] Facility Care Team Providers Care Sanitarian Aide Name Role Phone Tommie Lu MD Primary Care Provider + Encounter Details Date Type Department Care Team (Latest Contact Info) Description 08/17/2008 8:41 AM RECOVERY AUDITOR Hospital Encounter [facility] [place] [address] [place] [address] Pain in joint, lower leg Social History Tobacco Use Types Packs/Day Years Used Date Smoking Tobacco: Never Assessed Sex and Gender Information Value Date Recorded Sex Assigned at Not on file Legal Sex Male 8:13 AM RECOVERY AUDITOR Gender Identity Not on file Sexual Orientation Not on file documented as of this encounter Plan of Treatment Not on file documented as of this encounter Visit Diagnoses Diagnosis Pain in joint, lower leg documented in this encounter Care Teams Sanitarian Aide Relationship Specialty Start Date End Date Tommie Lu MD [address] [facility] [place] [address] PCP - General 10/22/07 12/28/13 documented as of this encounter
--- OUTSIDE RECORDS SUMMARY | 2024-08-13 04:57 | XMS_ITS | Encounter Summary ---
Author Organization [facility] Medical Group Address [address] [facility] [address] [place] [address] Care Team Providers Care Line Supply Name Role Phone Tommie Lu MD Primary Care Provider + Encounter Details Date Type Department Care Team (Late st Contact Info) Description 02/23/2017 Telephone [facility] [address] [facility] [address] [place] [address] Tommie Lu MD [address] [facility] [address] [place] [id number] Social History Tobacco Use Types Packs/Day Years Used Date Smoking Tobacco: Former Alcohol Use Standard Drinks/Week Comments Yes 0 (1 standard drink = 0.6 oz pur e alcohol) Sex and Gender Information Value Date Recorded Sex Assigned at Not on file 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 * Telephone Encounter - Ghassan Harris PA - 02/26/2017 3:21 PM CDT I don't know what else to say but he needs to have a BMP (nonfasting ok). Please have him do JOSE. Dx: hyponatremia * Telephone Encounter - Betty Izaguirre - 02/26/2017 2:59 PM CDT The only day I see that he came in for blood was on February 21 for CG and a bmp was not drawn then * Telephone Encounter - Meron Ragland - 02/26/2017 2:55 PM CDT Spoke to patient. He states he did go give blood, he is confused on this issue. I transferred him to the lab so he could dfiscuss there lab visit with them, since he feels he had this done. * Telephone Encounter - Ghassan Harris PA - 02/26/2017 2:24 PM CDT Can we please relay that message to the patient or his . So sodium was not checked that day since he did go to the lab. He can stop in any time to get that checked so we can monitor his sodium level * Telephone Encounter - Dianne Álvarez MA - 02/26/2017 2:21 PM CDT MB * Telephone Encounter - Betty Izaguirre - 02/26/2017 2:14 PM CDT As far as I can tell, pt did not come down after the visit * Telephone Encounter - Dianne Álvarez MA - 02/26/2017 2:03 PM CDT To Lab. * Telephone Encounter - Ghassan Harris PA - 02/26/2017 1:41 PM CDT I believe I sent him to the lab the day that I saw him. Did he not get blood drawn on the 6 after the visit??? * Telephone Encounter - Dianne Álvarez MA - 02/26/2017 11:01 AM CDT To MB * Telephone Encounter - Betty Izaguirre - 02/26/2017 10:51 AM CDT I see that a bmp is still ordered, it doesn't look like the patient came in after his ov on the * Telephone Encounter - Meron Ragland - 02/26/2017 9:40 AM CDT lab * Telephone Encounter - Ghassan Harris PA - 02/24/2017 8:38 AM CDT Any updates on this? Was a BMP done? * Telephone Encounter - Meron Ragland - 02/23/2017 2:56 PM CDT lab * Telephone Encounter - Ghassan Harris PA - 02/23/2017 2:37 PM CDT I ordered a BMP on 02/15 but I don't see results. Please find out if this was done. * Telephone Encounter - My Zuñiga - 02/23/2017 2:26 PM CDT is concerned about sodium level? * Telephone Encounter - Ghassan Harris PA - 02/23/2017 12:27 PM CDT His bad cholesterol was a little high, and his uric acid level was high, which we can see in gout. Otherwise the labs were ok. When does he see the neurologist? * Telephone Encounter - My Zuñiga - 02/23/2017 10:57 AM CDT To mb * Telephone Encounter - Tommie Lu MD - 02/23/2017 10:02 AM CDT This should go to the provider that saw the patient on 02/21 * Telephone Encounter - My Zuñiga - 02/23/2017 9:22 AM CDT Labs are scanned * Telephone Encounter - Gennaro Dickinson - 02/23/2017 8:17 AM CDT Pt called requesting lab results from 02/21/17. Please advise. documented in this encounter Plan of Treatment Not on file documented as of this encounter Visit Diagnoses Not on filedocumented in this encounter Care Teams Line Supply Relationship Specialty Start Date End Date Tommie Lu MD [address] [place] [address] PCP - General 11/10/16 11/27/17 documented as of this encounter
--- OUTSIDE RECORDS SUMMARY | 2024-08-13 04:57 | XMS_ITS | Encounter Summary ---
Author Organization [facility] Medical Group Address [address] [place] [address] Care Team Providers Care Supervisor Silvering Department Name Role Phone Tommie Lu MD Primary Care Provider + Encounter Details Date Type Department Care Team (Late st Contact Info) Description 02/21/2017 7:45 AM CDT Lab [facility] [address] [facility] [address] [place] [id number] Memory loss Social History Tobacco Use Types Packs/Day Years Used Date Smoking Tobacco: Former Alcohol Use Standard Drinks/Week Comments Yes 0 (1 standard drink = 0.6 oz pur e alcohol) Sex and Gender Information Value Date Recorded Sex Assigned at Not on file Legal Sex Male 8:13 AM PUPIL PERSONNEL SERVICES DIRECTOR Gender Identity Not on file Sexual Orientation Not on file documented as of this encounter Plan of Treatment Not on file documented as of this encounter Visit Diagnoses Diagnosis Memory loss documented in this encounter Care Teams Supervisor Silvering Department Relationship Specialty Start Date End Date Tommie Lu MD [address] [place] [address] PCP - General 11/10/16 11/27/17 documented as of this encounter
--- OUTSIDE RECORDS SUMMARY | 2024-08-13 04:57 | XMS_ITS | Encounter Summary ---
Author Organization [facility] Address [address] [place] [address] Care Team Providers Care Dust Box Worker Name Role Phone Tommie Yañez MD Primary Care Provider + Reason for Referral * Consultation (Routine) - Closed Specialty Diagnoses / Procedures Referred By Samira yu Referred To Contact Neurology Diagnoses Memory loss Ghassan Harris PA Phone: tel: fax: Referral ID Status Reason Start Date Expiration Date V isits Requested Visits Authorized [id number] Closed Specialty Services Required 02/15/2017 08/14/2017 1 1 Reason for Visit * Reason Comments Hospital follow up- low sodium levels Encounter Details Date Type Department Care Team (Late st Contact Info) Description 02/15/2017 8:00 AM CDT Office Visit [facility] [address] [facility] [address] [place] [address] Ghassan Harris PA [address] [place] [address] [address] [place] [address] Hospital discharge follow-up (Primary Dx); Alcoholism /alcohol abuse (CMS/HCC); Hyponatremia; Multiple-type hyperlipidemia; Memory loss Social History Tobacco Use Types Packs/Day Years Used Date Smoking Tobacco: Former Alcohol Use Standard Drinks/Week Comments Yes 0 (1 standard drink = 0.6 oz pur e alcohol) Sex and Gender Information Value Date Recorded Sex Assigned at Not on file Legal Sex Male 8:13 AM HOEING ROW BOSS Gender Identity Not on file Sexual Orientation Not on file documented as of this encounter Last Filed Vital Signs Vital Sign Reading Time Taken Comments Blood Pressure 92/62 02/15/2017 8:07 AM CDT Pulse 88 02/15/2017 8:07 AM CDT Temperature - - Respiratory Rate - - Oxygen Saturation - - Inhaled Oxygen Concentration - - Weight 75 kg (165 lb 4.8 oz) 02/15/2017 8:07 AM CDT Height 167.6 cm (5' 6 ) 02/15/2017 8:07 AM CDT Body Mass Index 26.68 02/15/2017 8:07 AM CDT documented in this encounter Progress Notes * Ghassan Harris PA - 02/15/2017 8:00 AM CDT Subjective/Objective Patient ID: Ganesh Stephenson is a 56 y.o. male. Chief Complaint Hospital follow up- low sodium levels HPI This patient of Dr. yañez is a 56-year-old gentleman with history of excess alcohol use, hyperlipidemia. He presented to [facility] on January 27 her altered mental status, lethargy and shaking. There he was found hypertensive, tremulous, diaphoretic, and confused. He is found to be hyponatremicto 122. CT head showed features concerning for subarachnoid hemorrhage. [facility] his treated for severe hyponatremia and alcohol withdrawal. CTA of head there revealed no acute intracranial abnormalities or bleeding. The patient has never had withdrawal symptoms or DTs in the past. He had been drinking 8-10 beers daily for the past few months. Overall workup at [facility] was negative. His sodium corrected with normal saline with subsequent resolutionof his confusion. He had no further episodes to alcohol withdrawal is mental status changes he was apparently attributed to acute severe hyponatremia secondary to beer podomania and dehydration. He im proved and was discharged home on January 29. He presents follow-up today. Pt stays physicially feels better but feels blah . Tired a lot, still confused. He is having a Hard time concentrating, repeating himself, trouble locating things including around the house were he knows things should be. He is having a hard time remembering what day it is. 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 He is Sleeping well but not rested he feels.He Does snore according to his . He does have a history of sleep apnea but has refused to wear CPAP. Last sleep study was in 2009. He has virtually No appetite. As alternative he is drinking boost about 5 times a day. He is drinking water with some electrolytes. The patient has not had any alcoholic beverages since 2 days prior to admission. The patient was a heavy drinker over a year ago but stopped drinking for year. About 2 months prior to admission he menses started drinking again but is drinking Asencio 64, which is low alcohol and drinking no more than 6 a day. This is also confirmed by his son who accompanies him. He was Told to FU w/ neuro but needs a referral. Review of Systems Constitutional: Positive for fatigue. Negative for chills and fever. Unexpected weight change: Few lb weight loss. HENT: Negative for sore throat and trouble swallowing. Respiratory: Negative for cough, shortness of breath and wheezing. Cardiovascular: Negative for chest pain, palpitations and leg swelling. Gastrointestinal: Negative for abdominal pain, constipation, diarrhea and nausea ( decreased appetite). Genitourinary: Negative for dysuria, frequency and hematuria. Neurological: Negative for dizziness, speech difficulty, weakness ( memory loss see HPI), numbness and headaches. Psychiatric/Behavioral: Positive for confusion and decreased concentration. Negative for hallucinations. Sleep disturbance: non restful sleep. The patient is not nervous/anxious. Physical Exam Constitutional: He is oriented to person, place, and time. He appears well- developed and well-nourished. No distress (Pleasant in accompanied by and son today). HENT: Mouth/Throat: Oropharynx is clear and moist. Neck: Normal range of motion. Neck supple. No thyromegaly present. Cardiovascular: Normal rate, regular rhythm and normal heart sounds. No murmur heard. Pulmonary/Chest: Effort normal and breath sounds normal. Abdominal: Soft. Bowel sounds are normal. He exhibits no distension and no mass. There is no tenderness. Lymphadenopathy: He has no cervical adenopathy. Neurological: He is alert and oriented to person, place, and time. Coordination normal. Psychiatric: He has a normal mood and affect. hosp records: Labs were pertinent for Na of 122 on arrival, urine osm of 408, UDS negative, and normal UA, TSH, ammonia, troponin. CTA of head revealed no acute intracranial abnromalities or bleeding. CT abdomen and pelvis revealed no acute abdominal findings,and CXR was wnl. On January 29 his BMP is showed crit sodium up to 140. HIV was nonreactive RPR nonreactive,B12 249. TSH 2.38. Lipid panel showed total cholesterol 191 LDL 121 HDL 54. A1c 5.1. Ethanol level was negative as was drug screen. Assessment/Plan Diagnoses and all orders for this visit: 1. Hospital discharge follow-up (Primary) Comments: Hospital records reviewed 2. Alcoholism /alcohol abuse ([facility]) Comments: He is abstaining from alcohol 3. Hyponatremia Comments: Will recheck a BMP today. Maintain hydration with fluids other than free water as he has been doing. Orders: - Basic metabolic panel; Future 4. Multiple-type hyperlipidemia Comments: Lipid panel shows normal cholesterol at this time. He is off his atorvastatin since hospitalization. This can be discussed further Dr. yañez 5. Memory loss Comments: Referred to Neurology as an outpatient. Orders: - Ambulatory referral to Neurology Side effects, risks, interactions reviewed with patient. Indications for testing discussed. Any further problems to contact us. The patient was told what to look out for and verbalized understanding.The patient was given the opportunity to have all questions answered today and was in agreement with the plan of care. He has a follow-up appointment Dr. yañez at the end of this month with labs ahead. Cosigned by Tommie Yañez MD at 02/15/2017 10:04 AM CDT documented in this encounter Plan of Treatment Scheduled Referrals Name Type Priority Associated Diagnoses Order Schedule Ambulatory referral to Neurology Outpatient Referral Routine Memory loss Ordered: 02/15/2017 documented as of this encounter Visit Diagnoses Diagnosis Hospital discharge follow-up- Primary Other follow-up examination Alcoholism /alcohol abuse Other and unspecified alcohol dependence, unspecified drinking behavior Hyponatremia Hyposmolality and/or hyponatremia Multiple-type hyperlipidemia Other and unspecified hyperlipidemia Memory loss documented in this encounter Discontinued Medications Medication Sig Discontinue Reason Start Date End Da te meclizine (ANTIVERT) 25 mg tablet take 1 tablet by ORAL route 4 times every day as needed 07/27/2015 02/15/2017 atorvastatin (LIPITOR) 40 mg tablet take 1 tablet by oral route every day 05/02/2016 02/15/2017 documented as of this encounter Historical Medications * This list may reflect changes made after this encounter. SPECTRAVITE SENIOR tablet Take 1 tablet by mouth daily. 0 01/29/2017 03/25/2020 folic acid (FOLVITE) 1 mg tablet Take 1,000 mcg by mouth daily. 0 01/29/2017 03/25/2020 added in this encounter Care Teams Dust Box Worker Relationship Specialty Start Date End Date Tommie Yañez MD [address] [place] [address] PCP - General 11/10/16 11/27/17 documented as of this encounter
--- OUTSIDE RECORDS SUMMARY | 2024-08-13 04:57 | XMS_ITS | Encounter Summary ---
Author Organization [facility] Address [address] [place] [address] Care Team Providers Care Children'S Ministry Director Name Role Phone Tommie Lu MD Primary Care Provider + Encounter Details Date Type Department Care Team (Late st Contact Info) Description 02/27/2017 Telephone [facility] [address] [facility] [address] [place] [address] [place] [address] [place] [address] [place] [address] Social History Tobacco Use Types Packs/Day Years Used Date Smoking Tobacco: Former Alcohol Use Standard Drinks/Week Comments Yes 0 (1 standard drink = 0.6 oz pur e alcohol) Sex and Gender Information Value Date Recorded Sex Assigned at Not on file Legal Sex Male 8:13 AM 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 * Telephone Encounter - My Zuñiga - 02/27/2017 2:57 PM CDT Labs are avail to view under lab tab * Telephone Encounter - Gennaro Dickinson - 02/27/2017 2:04 PM CDT Requesting sodium labs from 02/26 documented in this encounter Plan of Treatment Not on file documented as of this encounter Visit Diagnoses Not on filedocumented in this encounter Care Teams Children'S Ministry Director Relationship Specialty Start Date End Date Tommie Lu MD [address] [address] PCP - General 11/10/16 11/27/17 documented as of this encounter
--- OUTSIDE RECORDS SUMMARY | 2024-08-13 04:57 | XMS_ITS | Encounter Summary ---
Author Organization [facility] Healthcare Address [address] [place] [address] Care Team Providers Care Financial Investigator Name Role Phone Tommie Lu MD Primary Care Provider + Encounter Details Date Type Department Care Team (Late st Contact Info) Description 12/05/2010 12:01 AM CDT - 12/05/2010 11:59 PM CDT Hospital Encounter [facility] Tommie Lu MD [address] [facility] [address] [place] [address] Social History Tobacco Use Types Packs/Day Years Used Date Smoking Tobacco: Never Assessed Sex and Gender Information Value Date Recorded Sex Assigned at Not on file Legal Sex Male 8:13 AM SEARCH DIRECTOR Gender Identity Not on file Sexual Orientation Not on file documented as of this encounter Plan of Treatment Not on file documented as of this encounter Visit Diagnoses Not on filedocumented in this encounter Care Teams Financial Investigator Relationship Specialty Start Date End Date Tommie Lu MD [address] [facility] [place] [address] PCP - General 10/22/07 12/28/13 documented as of this encounter
--- OUTSIDE RECORDS SUMMARY | 2024-08-13 04:57 | XMS_ITS | Encounter Summary ---
Author Organization [facility] Healthcare Address [address] [place] [address] Care Team Providers Care Professor Of Kinesiology Name Role Phone Tommie Lu MD Primary Care Provider + Encounter Details Date Type Department Care Team (Late st Contact Info) Description 10/26/2009 12:01 AM CDT - 10/26/2009 11:59 PM CDT Hospital Encounter [facility] Tommie Lu MD [address] [facility] [address] [address] Other dyspnea and respiratory abnormality; Sleep apnea Social History Tobacco Use Types Packs/Day Years Used Date Smoking Tobacco: Never Assessed Sex and Gender Information Value Date Recorded Sex Assigned at Not on file Legal Sex Male 8:13 AM WORK DISTRIBUTOR Gender Identity Not on file Sexual Orientation Not on file documented as of this encounter Plan of Treatment Not on file documented as of this encounter Visit Diagnoses Diagnosis Other dyspnea and respiratory abnormality Sleep apnea Unspecified sleep apnea documented in this encounter Care Teams Professor Of Kinesiology Relationship Specialty Start Date End Date Tommie Lu MD [address] [facility] [place] [address] PCP - General 10/22/07 12/28/13 documented as of this encounter
--- OUTSIDE RECORDS SUMMARY | 2024-08-13 04:57 | XMS_ITS | Encounter Summary ---
Author Organization [facility] Healthcare Address [address] [place] [address] Care Team Providers Care Electric Mule Operator Name Role Phone Tommie Lu MD Primary Care Provider + Encounter Details Date Type Department Care Team (Late st Contact Info) Description 07/01/2015 10:39 AM AREA CLEANER - 07/01/2015 11:59 PM AREA CLEANER Hospital Encounter [facility] Michael Keyes [address] [place] [address] Disorientation Social History Tobacco Use Types Packs/Day Years Used Date Smoking Tobacco: Former Alcohol Use Standard Drinks/Week Comments Yes 0 (1 standard drink = 0.6 oz pur e alcohol) Sex and Gender Information Value Date Recorded Sex Assigned at Not on file Legal Sex Male 8:13 AM AREA CLEANER Gender Identity Not on file Sexual Orientation [...] Procedure Name Priority Date/Time Associated Diagnosis Comments PRE-PRELIMINARY CT SCAN REPORT Routine 07/01/2015 10:[address] HEAD WO CONTRAST Routine 07/01/2015 1 0:48 AM AREA CLEANER documented in this encounter Results * PRE-PRELIMINARY CT SCAN REPORT (07/01/2015 10:48 AM AREA CLEANER) Anatomical Region Laterality Modality N/A Computed Tomogra phy 07/01/2015 10:4 8 AM AREA CLEANER Narrative 07/01/2015 10:55 AM AREA CLEANER OP STAT IMAGING PRELIMINARY RESULT [facility] PATIENT: ?? GANESH ??JANELL MR#: ?? [id number] : 1960 AGE / SEX: ?? 54Y / M Procedure: ECT 0022 - CT Head WO Exam Date: ?? Jul 01 2015 10:48AM ?Loc: [id number] Acc#: ?? [id number] Pt_Class at Time of Procedure: O Current Pt Class and Location: ?? O ?RAD Requesting Location: RAD Priority: ??ROUTINE Reason: ?? [facility] transfer Order Comments: Ord : ?? MICHAEL ??MALENCH ??M.D. Preliminary Reading Doctor: ??SAMEER LYNN M.D., RADIOLOGIST Completed on: ??Jul 01 2015 10:55AM Call Results Info: Patient Waiting: No Call Report to: [facility] ed Comments: [facility] transfer ----- Please be advised this is a preliminary report. ??A final report is forthcoming. READ ANY COMMENTS BELOW Findings: ? Abnormal Comments Line 1: ?naicp. mild volume loss. mild ethmoid sinus dz Comments Line 2: Comments Line 3: Comments Line 4: Comments Line 5: Procedure Note Provider, Sanna, - 12/12/2016 OP STAT IMAGING PRELIMINARY RESULT [facility] PATIENT: GANESH MACIEL MR#: [id number] : 1960 AGE / SEX: 54Y / M Procedure:ECT 0022 - CT Head WO Exam Date: Jul 01 2015 10:48AM Loc:[id number] Acc#: [id number] Pt_Class at Time of Procedure: O Current Pt Class and Location: O RAD Requesting Location: RAD Priority: ROUTINE Reason: [facility] transfer Order Comments: Ord Dr: MICHAEL KEYES M.D. Preliminary Reading Doctor: SAMEER LYNN M.D., RADIOLOGIST Completed on: Jul 01 2015 10:55AM Call Results Info: Patient Waiting: No Call Report to: [facility] ed Comments: [facility] transfer ----- Please be advised this is a preliminary report. A final report isforthcoming. READ ANY COMMENTS BELOW Findings: Abnormal Comments Line 1: naicp. mild volume loss. mild ethmoid sinus dz Comments Line 2: Comments Line 3: Comments Line 4: Comments Line 5: us Historical Provider MD SQUIRES CT PROCEDURES Final R esult * CT Head WO Contrast (07/01/2015 10:48 AM AREA CLEANER) Anatomical Region Laterality Modality Head and Neck N/A Computed Tomogra phy 07/01/2015 10:4 8 AM AREA CLEANER Narrative 07/01/2015 1:23 PM AREA CLEANER DATE OF EXAM: ??Jul 01 2015 10:48AM Acc#: ??[id number] ??ECT 0022 - CT Head WO ?? DIAGNOSIS: ??CT CLINICAL HISTORY: ?? [facility] transfer RESULT: \ EXAMINATION: ??CT HEAD WITHOUT CONTRAST FINDINGS: No prior CT examination is available for comparison. There is no intracranial hemorrhage, midline shift, or mass-effect. The ventricles and sulci are mildly prominent, consistent with atrophy. ??The lan/white differentiation appears preserved. ??The calvarium is intact. ??There is minimal partial opacification of the ethmoid air cells. ??Otherwise, the visualized paranasal sinuses are clear. ?? IMPRESSION: ?\ 1. ?NO ACUTE INTRACRANIAL PATHOLOGY. 2. ?? MILD VOLUME LOSS. RECYCLING PROGRAM MANAGER: ??DH9 TRANSCRIBE DATE/TIME: ??Jul 01 2015 11:28A RADIOLOGIST: ??SAMEER LYNN M.D. ??READ ON: ??Jul 01 2015 10:55A ORDERING DR: MICHAEL KEYES M.D. ? THIS DOCUMENT HAS BEEN ELECTRONICALLY SIGNED BY: ??SAMEER LYNN M.D. ??ON: ??Jul 01 2015 ??1:23P Attending: ??STEPHY, ??MICHAEL Requesting: ??STEPHY, ??MICHAEL Requesting Fax: ??[phone] Attending Fax: ??-- Attending ID: ??[id number] Requesting ID: ??[id number] Report To 1 ID: ?? Report To 1 Name: ??, ?? Report To 1 FAX: ??-- Report To 2 ID: ?? Report To 2 Name: ??, ?? Report To 2 FAX: ??-- NextGen Order #: ?? Procedure Note Provider, MD Sanna - 12/12/2016 DATE OF EXAM: Jul 01 2015 10:48AM Acc#: [id number] ECT 0022 - CT Head WO DIAGNOSIS: CT CLINICAL HISTORY: [facility] transfer RESULT: \ EXAMINATION: CT HEAD WITHOUT CONTRAST FINDINGS: No prior CT examination is available for comparison. There is no intracranial hemorrhage, midline shift, or mass-effect. The ventricles and sulci are mildly prominent, consistent with atrophy. The lan/white differentiation appears preserved. The calvarium is intact. There is minimal partial opacification of the ethmoid air cells. Otherwise, the visualized paranasal sinuses are clear. IMPRESSION: \ 1. NO ACUTE INTRACRANIAL PATHOLOGY. 2. MILD VOLUME LOSS. RECYCLING PROGRAM MANAGER: Bita TRANSCRIBE DATE/TIME: Jul 01 2015 11:28A RADIOLOGIST: SAMEER LYNN M.D. READ ON: Jul 01 2015 10:55A ORDERING DR: MICHAEL KEYES M.D. THIS DOCUMENT HAS BEEN ELECTRONICALLY SIGNED BY: SAMEER LYNN M.D. ON: Jul 01 2015 1:23P Attending: MICHAEL KEYES Requesting: MICHAEL KEYES Requesting Attending Fax: -- Attending ID: [id number] Requesting ID: [id number] Report To 1 ID: Report To 1 Name: , Report To 1 FAX: -- Report To 2 ID: Report To 2 Name: , Report To 2 FAX: -- NextGen Order #: us Historical Provider MD SQUIRES CT PROCEDURES Final R esult documented in this encounter Visit Diagnoses Diagnosis Disorientation Other general symptoms documented in this encounter Care Teams Electric Mule Operator Relationship Specialty Start Date End Date Tommie Lu MD [address] [address] [place] [address] PCP - General 12/29/13 11/09/16 documented as of this encounter
--- OUTSIDE RECORDS SUMMARY | 2024-08-13 04:57 | XMS_ITS | Encounter Summary ---
Author Organization [facility] Healthcare Address [address] [place] [address] Care Team Providers Care Cpr Ambulance Driver Name Role Phone Tommie Lu MD Primary Care Provider + Encounter Details Date Type Department Care Team (Late st Contact Info) Description 03/31/2008 12:01 AM CDT - 03/31/2008 11:59 PM CDT Hospital Encounter [facility] Tommie Lu MD [address] [facility] [place] [address] Social History Tobacco Use Types Packs/Day Years Used Date Smoking Tobacco: Never Assessed Sex and Gender Information Value Date Recorded Sex Assigned at Not on file Legal Sex Male 8:13 AM SLEEPING BAG FILLER Gender Identity Not on file Sexual Orientation Not on file documented as of this encounter Plan of Treatment Not on file documented as of this encounter Visit Diagnoses Not on filedocumented in this encounter Care Teams Cpr Ambulance Driver Relationship Specialty Start Date End Date Tommie Lu MD [address] [facility] [place] [address] PCP - General 10/22/07 12/28/13 documented as of this encounter
--- OUTSIDE RECORDS SUMMARY | 2024-08-13 04:57 | XMS_ITS | Encounter Summary ---
Author Organization [facility] Healthcare Address [address] [place] [address] Care Team Providers Care Army Senior Officer Name Role Phone Tommie Lu MD Primary Care Provider + Encounter Details Date Type Department Care Team (Late st Contact Info) Description 11/06/2006 11:31 AM CDT - 11/06/2006 11:59 PM CDT Hospital Encounter [facility] Tommie Lu MD [address] [place] [address] Social History Tobacco Use Types Packs/Day Years Used Date Smoking Tobacco: Never Assessed Sex and Gender Information Value Date Recorded Sex Assigned at Not on file Legal Sex Male 8:13 AM SURGICAL INSTRUMENTS INSPECTOR Gender Identity Not on file Sexual Orientation Not on file documented as of this encounter Plan of Treatment Not on file documented as of this encounter Visit Diagnoses Not on filedocumented in this encounter Care Teams Army Senior Officer Relationship Specialty Start Date End Date Tommie Lu MD [facility] [place] [address] PCP - General 10/23/06 10/14/07 documented as of this encounter
--- OUTSIDE RECORDS SUMMARY | 2024-08-13 04:57 | XMS_ITS | Encounter Summary ---
Author Organization [facility] Healthcare Address [address] [place] [address] Care Team Providers Care Vehicle Service Agent Name Role Phone Tommie Lu MD Primary Care Provider + Encounter Details Date Type Department Care Team (Late st Contact Info) Description 12/05/2010 2:31 PM CDT - 12/05/2010 11:59 PM CDT Hospital Encounter [facility] Disturbance of skin sensation Social History Tobacco Use Types Packs/Day Years Used Date Smoking Tobacco: Never Assessed Sex and Gender Information Value Date Recorded Sex Assigned at Not on file Legal Sex Male 8:13 AM TELEVISION MAINTENANCE MAN Gender Identity Not on file Sexual Orientation Not on file documented as of this encounter Plan of Treatment Not on file documented as of this encounter Visit Diagnoses Diagnosis Disturbance of skin sensation documented in this encounter Care Teams Vehicle Service Agent Relationship Specialty Start Date End Date Tommie Lu MD [address] [place] [address] PCP - General 10/22/07 12/28/13 documented as of this encounter
--- OUTSIDE RECORDS SUMMARY | 2024-08-13 04:57 | XMS_ITS | Encounter Summary ---
Author Organization [facility] Medical Group Address [address] [place] [address] Care Team Providers Care Rn Concurrent Review Name Role Phone Tommie Lu MD Primary Care Provider + Encounter Details Date Type Department Care Team (Late st Contact Info) Description 02/26/2017 4:00 PM CDT Lab [facility] [address] [facility] [address] [place] [address] Hyposmolality and/or hyponatremia Social History Tobacco Use Types Packs/Day Years Used Date Smoking Tobacco: Former Alcohol Use Standard Drinks/Week Comments Yes 0 (1 standard drink = 0.6 oz pur e alcohol) Sex and Gender Information Value Date Recorded Sex Assigned at Not on file Legal Sex Male 8:13 AM LABORER TIN CAN Gender Identity Not on file Sexual Orientation Not on file documented as of this encounter Plan of Treatment Not on file documented as of this encounter Visit Diagnoses Diagnosis Hyposmolality and/or hyponatremia documented in this encounter Care Teams Rn Concurrent Review Relationship Specialty Start Date End Date Tommie Lu MD [address] [place] [address] PCP - General 11/10/16 11/27/17 documented as of this encounter
--- OUTSIDE RECORDS SUMMARY | 2024-08-13 04:57 | XMS_ITS | Encounter Summary ---
Author Organization [facility] Healthcare Address [address] [place] [address] Care Team Providers Care Automotive Welder Name Role Phone Tommie Lu MD Primary Care Provider + Encounter Details Date Type Department Care Team (Latest Contact Info) Description 03/15/2017 10:00 AM CDT - 03/15/2017 11:59 PM T Hospital Encounter [facility] [phone] Martita Love MD PhD [address] [facility] [address] [place] [address] Discharge Disposition: Discharge to home or self care Social History Tobacco Use Types Packs/Day Years Used Date Smoking Tobacco: Former Alcohol Use Standard Drinks/Week Comments Yes 0 (1 standard drink = 0.6 oz pur e alcohol) Sex and Gender Information Value Date Recorded Sex Assigned at Not on file 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 Gender Identity Not on file Sexual [...] Procedure Name Priority Date/Time Associated Diagnosis Comments SAVE HEME STAT 03/15/2017 10:01 AM CDT CSF CELL COUNT WITH DIFFERENTIAL Routine Gen Lab 03/15/2017 10:01 AM CDT CSF CELL COUNT WITH DIFFERENTIAL STAT 03/15/2017 10:00 AM CDT CSF PROTEIN STAT 03/15/2017 10:00 AM CDT GLUCOSE, CSF STAT 03/15/2017 10:00 AM CDT DISCHARGE LABORATORY CUMULATIVE REPORT 03/15/2017 12:00 AM CDT documented in this encounter Results * Cell count and differential, CSF (03/15/2017 10:01 AM CDT) Tube Number, CSF Tube 3 [facility] Color, CSF Colorless Colorless [facility] Clarity, CSF Clear Clear [facility] Xanthochromia , CSF Absent Absent [facility] RBC, CSF 0 0 - 0 /cumm [facility] Nucleated cells, CSF 0 <=10 /cumm [facility] Total cells diffed Diff Not Done Cells [facility] CSF 03/15/2017 10:0 1 AM CDT 03/15/2017 1:38 PM CDT Martita Love MD PhD LAB BODY FLUIDS AND ST OOLS ORDERABLES Final Result [facility] [address] [facility] Department [place] [address] * Save heme (03/15/2017 10:01 AM CDT) Save Complete Fluid will be refrigerated for 7 days, then frozen for 30 days. At the end of the 30 days, the fluid will be destroyed. [facility] Save Type CSF [facility] Miscellaneous 03/15/2017 10: 01 AM CDT 03/15/2017 1:39 PM CDT Martita Love MD PhD LAB BLOOD ORDERABLES E dited Result - Final Performing Organization Address [facility] de Phone Number [facility] [place] [address] * Glucose, CSF (03/15/2017 10:00 AM CDT) Glucose, CSF 69 mg/dL [facility] Comment: Interpretive Data Reference Interval Information: CSF Glucose should be 60-66% of the most current plasma glucose concentration (milligrams/deciliter) CLIN. CHEM. 41/3, 343-360 (1994), Clinical Utility of Biochemical Analysis of Cerebrospinal Fluid, Christopher Adrian and Theo Mauricio. Current interpretive data was last revised on 2012. CSF 03/15/2017 10:0 0 AM CDT 03/15/2017 1:38 PM CDT Martita Love MD PhD LAB BODY FLUIDS AND ST OOLS ORDERABLES Final Result Performing Organization Address [facility] de Phone Number [facility] Department [place] [address] * Protein, total, CSF (03/15/2017 10:00 AM CDT) Protein, CSF 38 5 - 45 mg/dL [facility] CSF 03/15/2017 10:0 0 AM CDT 03/15/2017 1:38 PM CDT Martita Love MD PhD LAB BODY FLUIDS AND ST OOLS ORDERABLES Final Result Performing Organization Address [facility] Co de Phone Number [facility] [place] [address] * (ABNORMAL) Cell count and differential, CSF (03/15/2017 10:00 AM CDT) Tube Number, CSF Tube 1 [facility] Color, CSF Colorless Colorless [facility] Clarity, CSF Clear Clear [facility] Xanthochromia , CSF Absent Absent [facility] RBC, CSF 229(H) 0 - 0 /cumm [facility] Nucleated cells, CSF 0 <=10 /cumm [facility] Total cells diffed Diff Not Done Cells [facility] CSF 03/15/2017 10:0 0 AM CDT 03/15/2017 1:37 PM CDT Martita Love MD PhD LAB BODY FLUIDS AND ST OOLS ORDERABLES Final Result [facility] [address] [facility] Department [place] [address] * DISCHARGE LABORATORY CUMULATIVE REPORT (03/15/2017 12:00 AM CDT) Narrative 03/15/2017 12:00 AM CDT Ordered by an unspecified provider. Historical Provider LAB BLOOD ORDERABLES Mariza l Result documented in this encounter Visit Diagnoses Not on filedocumented in this encounter Care Teams Automotive Welder Relationship Specialty Start Date End Date Tommie Lu MD [address] [place] [address] PCP - General 11/10/16 11/27/17 documented as of this encounter
--- OUTSIDE RECORDS SUMMARY | 2024-08-13 04:57 | XMS_ITS | Encounter Summary ---
Author Organization [facility] Healthcare Address [address] [place] [address] Care Team Providers Care Export Documents Clerk Name Role Phone Tommie Deal MD Primary Care Provider + Encounter Details Date Type Department Care Team (Late st Contact Info) Description 04/09/2015 6:36 AM CDT - 04/09/2015 11:59 PM CDT Hospital Encounter [facility] Tommie Andrew MD [address] [place] [address] Memory loss; Chronic maxillary sinusitis; Chronic ethmoidal sinusitis Social History Tobacco Use Types Packs/Day Years Used Date Smoking Tobacco: Former Alcohol Use Standard Drinks/Week Comments Yes 0 (1 standard drink = 0.6 oz pur e alcohol) Sex and Gender Information Value Date Recorded Sex Assigned at Not on file 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 ??Patient fell one year ago and hit head on post; was knocked out. RESULT: Sagittal FLAIR; axial T1 inversion recovery, T2, FLAIR and diffusion weighted images of the brain were obtained. Ventricles, basal cisterns and cortical sulci are normal. ??There are scattered foci of increased T2 and FLAIR signal in white matter bilaterally, mostly subcortical. ??These are isointense to hypointense on T1. ??No diffusion restriction/brain edema is demonstrated on diffusion weighted images. ??No mass, hemorrhage, edema or midline shift is seen. No abnormal intraaxial or extraaxial fluid collection is identified. Mild mucosal thickening is seen in left maxillary and bilateral ethmoid air cells. ??Calvarium and base of skull appear intact. IMPRESSION: 1. MILD BILATERAL WHITE MATTER CHANGES MOST SUGGESTIVE OF MICROANGIOPATHY. 2. NO OTHER INTRACRANIAL ABNORMALITY SEEN. 3. MILD LEFT MAXILLARY AND BILATERAL ETHMOID SINUS INFLAMMATORY CHANGES. Interpreting Physician: ??DR JEFF VILLAVICENCIO M.D. ??Read on: ??Apr 09 2015 10:46A Transcribed by: ??eber ??On: Apr 09 2015 11:04A Approved Electronically by: ??SAUD Kelly, DR AGUILAR ??on: ??Apr 09 2015 12:08P Attending: ??TOMMIE DEAL Requesting: ??DR TOMMIE DEAL Requesting Fax: ??-- Attending Fax: ??-- Attending ID: ??[id number] Requesting ID: ??[id number] Report To 1 ID: ??[id number] Report To 1 Name: ??TOMMIE DEAL Report To 1 FAX: ??-- NextGen Order #: Procedure Note Provider, MD Sanna - 12/12/2016 MRI Brain WO Acc#: [id number] DATE OF EXAM: Apr 09 2015 CLINICAL HISTORY: Memory loss for several months. Patient fell one year ago and hit headon post; was knocked out. RESULT: Sagittal FLAIR; axial T1 inversion recovery, T2, FLAIR and diffusionweighted images of the brain were obtained. Ventricles, basal cisterns andcortical sulci are normal. There are scattered foci of increased T2 andFLAIR signal in white matter bilaterally, mostly subcortical. These areisointense to hypointense on T1. No diffusion restriction/brain edema isdemonstrated on diffusion weighted images. No mass, hemorrhage, edema ormidline shift is seen. No abnormal intraaxial or extraaxial fluidcollection is identified. Mild mucosal thickening is seen in leftmaxillary and bilateral ethmoid air cells. Calvarium and base of skullappear intact. IMPRESSION: 1. MILD BILATERAL WHITE MATTER CHANGES MOST SUGGESTIVE OFMICROANGIOPATHY. 2. NO OTHER INTRACRANIAL ABNORMALITY SEEN. 3. MILD LEFT MAXILLARY AND BILATERAL ETHMOID SINUS INFLAMMATORY CHANGES. Interpreting Physician: DR JEFF VILLAVICENCIO M.D. Read on: Apr 09 201510:46A Transcribed by: eber On: Apr 09 2015 11:04A Approved Electronically by: SAUD Kelly, DR AGUILAR on: Apr 09 201512:08P Attending: TOMMIE DEAL Requesting: DR TOMMIE DEAL Requesting Fax: -- Attending Fax: -- Attending ID: [id number] Requesting ID: [id number] Report To 1 ID: [id number] Report To 1 Name: TOMMIE DEAL Report To 1 FAX: -- NextGen Order #: Historical Provider MD SQUIRES MRI PROCEDURES Final Result documented in this encounter Visit Diagnoses Diagnosis Memory loss Chronic maxillary sinusitis Chronic ethmoidal sinusitis documented in this encounter Care Teams Export Documents Clerk Relationship Specialty Start Date End Date Tommie Deal MD [address] [place] [address] PCP - General 12/29/13 11/09/16 documented as of this encounter
--- OUTSIDE RECORDS SUMMARY | 2024-08-13 04:57 | XMS_ITS | Encounter Summary ---
Author Organization [facility] Medical Group Address [address] [place] [address] Care Team Providers Care Service Engineer Name Role Phone Tommie Lu MD Primary Care Provider + Encounter Details Date Type Department Care Team (Late st Contact Info) Description 02/15/2017 Telephone [facility] [address] [place] [address] Ghassan Harris PA [address] [facility] [address] [place] [address] Social History Tobacco Use Types Packs/Day Years Used Date Smoking Tobacco: Former Alcohol Use Standard Drinks/Week Comments Yes 0 (1 standard drink = 0.6 oz pur e alcohol) Sex and Gender Information Value Date Recorded Sex Assigned at Not on file 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 Dx memory loss please call [phone] when calling patient. Ordered my mb documented in this encounter Plan of Treatment Not on file documented as of this encounter Visit Diagnoses Not on filedocumented in this encounter Care Teams Service Engineer Relationship Specialty Start Date End Date Tommie Lu MD [address] [place] [address] PCP - General 11/10/16 11/27/17 documented as of this encounter
--- OUTSIDE RECORDS SUMMARY | 2024-08-13 04:57 | XMS_ITS | Encounter Summary ---
Author Organization [facility] Healthcare Address [address] [place] [address] Care Team Providers Care Physical Education Teacher Name Role Phone Tommie Lu MD Primary Care Provider + Encounter Details Date Type Department Care Team (Late st Contact Info) Description 01/27/2017 6:00 PM CDT - 01/27/2017 11:59 PM CDT Emergency [facility] Emergency Department [address] [place] [address] Discharge Disposition: Discharge to home or self care Social History Tobacco Use Types Packs/Day Years Used Date Smoking Tobacco: Former Alcohol Use Standard Drinks/Week Comments Yes 0 (1 standard drink = 0.6 oz pur e alcohol) Sex and Gender Information Value Date Recorded Sex Assigned at Not on file 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
--- OUTSIDE RECORDS SUMMARY | 2024-08-13 04:57 | XMS_ITS | Encounter Summary ---
Author Organization [facility] Healthcare Address [address] [place] [address] Care Team Providers Care Paper Testing Supervisor Name Role Phone Tommie Lu MD Primary Care Provider + Encounter Details Date Type Department Care Team (Late st Contact Info) Description 11/06/2006 12:13 PM CDT - 11/07/2006 6:00 PM CDT Hospital Encounter [facility] Tommie Lu MD [address] [place] [address] Social History Tobacco Use Types Packs/Day Years Used Date Smoking Tobacco: Never Assessed Sex and Gender Information Value Date Recorded Sex Assigned at Not on file 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
--- OUTSIDE RECORDS SUMMARY | 2024-08-13 05:15 | XMS_ITS | Continuity of Care Document ---
Author Organization [facility], [facility] [place] Address [address] [place] [address] Care Team Providers Care Mouse Breeder Name Role Phone GANESH PRINCE Primary Care Provider Assessment Encounter Date Assessment Date Assessment LastModified by Organization Details LastModified Time 06/05/2024 06/05/2024 flu shot. Healthy lifestyle care instructions we will continue with his multiple medications for dementia and anxiety follow up will be in 4 months Not available 06/14/2024 20:47:42 Plan of Treatment Reminders Order Date Submit Date Provider Last Modified By Organization Details Last Modified Time Details Appointments ANY 15 025 10:30AM Ganesh Prince MD Not available Not available Not available Lab None record ed. Referral None record ed. Procedures None record ed. Surgeries None record ed. Imaging None record ed. Medication Orders None record ed. Patient TargetsNo targets recorded. Patient Instructions Encounter Date Encounter Id Patient Instructions Last Modified By Organization Details Last Modified Time 06/05/2024 [id number] A healthy lifestyle: care instructions [id number] Not available 06/05/2024 17:30:37 Reason for Referral None Reported. Problems Name Problem SNOMED Code Status Onset Date Resolution Date Notes Provider Name and Address Organization Details Recorded Time Anxiety 76983634 Active 024 Roxana Cardenas MA null, [facility] 02/21/2024 12:23:32 Dementia 31790945 Active 024 Ganesh Prince MD Attn: Accounting ,[address] [facility], [place], [address] , [facility] 06/14/2024 20:46:19 Problem Notes None recorded. Medical Equipment None Reported. Allergies No known drug allergies Medications Name Sig Start Date Stop Date Status Note LastModified by Organization Details LastModified Time quetiapine 25 mg tablet TAKE 1 TABLET BY MOUTH TWICE A DAY active Not Available Not Available No t Available buspirone 5 mg tablet TAKE 1 TABLET BY MOUTH TWICE A DAY 11/28 completed Not Available Not Available Not Available donepezil 10 mg tablet TAKE 1 TABLET (10 MG TOTAL) BY MOUTH DAILY AFTER BREAKFAST active Not Available Not Available No t Available ciprofloxac in 500 mg tablet TAKE 1 TABLET BY MOUTH EVERY 12 HOURS FOR 7 DAYS 06/05 completed Not Available Not Available Not Available lorazepam 0.5 mg tablet TAKE ONE TABLET BY MOUTH THREE TIMES DAILY NEEDED FOR ANXIETY NEED VALID SCRIPT 2023 active Not Available Not Available Not Avai lable risperidone 0.5 mg tablet TAKE 1 TABLET BY MOUTH TWICE DAILY active Not Available Not Available No t Available haloperidol lactate 2 mg/mL oral concentrate 06/05 completed Not Available Not Available Not Available escitalopra m 20 mg tablet TAKE 1 TABLET BY MOUTH EVERY DAY active Not Available Not Available No t Available memantine 10 mg tablet TAKE 1 TABLET BY MOUTH DAILY active Not Available Not Available No t Available quetiapine 50 mg tablet 06/05 completed Not Available Not Available Not Available Vitals Date Recorded Body weight Body mass index (BMI) Body height Heart rate Oxygen saturation Oxygen saturation in Arterial blood by Pulse oximetry Systolic blood pressure Diastolic blood pressure Provider Name and Address Organization Details Last Updated DateTime 4 [address]23.1 1 g 27.3 kg/m2 167.64 cm 97 /min 98 % 98 % 110 mm[Hg] 64 mm[Hg] Sharmila Worthington MA [place] - [facility] 4 10:20:05 Social History Question Answer Notes LastModified by Organizat ion Details LastModified Time Tobacco Smoking Status Former Smoker Merline Azar MA [facility], [place] - [place] 11/29/2023 15:33:47 Do You Have An Advance Directive? No Information not available 06/05/2024 What Is Your Level Of Alcohol Consumption? None Information not available 11/29/2023 Are You Blind Or Do You Have Difficulty Seeing? No Information not available 11/29/2023 What Is Your Level Of Caffeine Consumption? Occasional Information not available 06/05/2024 In The 14 Days Before Symptom Onset, Have You Had Close Contact With A Laboratory-confir med COVID-19 While That Case Was Ill? No Information not available 06/05/2024 In The 14 Days Before Symptom Onset, Have You Had Close Contact With A Person Who Is Under Investigation For COVID-19 While That Person Was Ill? No Information not available 06/05/2024 Have You Been To An Area Known To Be High Risk For COVID-19? No Information not available 06/05/2024 Are You Deaf Or Do You Have Serious Difficulty Hearing? No Information not available 11/29/2023 Are There Any Guns Present In Your Home? No Information not available 06/05/2024 What Was The Date Of Your Most Recent Tobacco Screening? 06/05/2024 Information not available 06/05/2024 What Is Your Relationship Status? Information not available 11/29/2023 Do You Use Your Seat Belt Or Car Seat Routinely? Yes Information not available 11/29/2023 Do You Have Smoke And Carbon Monoxide Detectors In Your Home? Yes Information not available 06/05/2024 Do You Feel Stressed (tense, Restless, Nervous, Or Anxious, Or Unable To Sleep At Night)? IC4401-1 Information not available 11/29/2023 Do You Use Any Illicit Or Recreational Drugs? No Information not available 06/05/2024 Do You Use Sunscreen Routinely? No Information not available 06/05/2024 Do You Or Have You Ever Used Any Other Forms Of Tobacco Or Nicotine? No Information not available 06/05/2024 Sex: Female Functional Status Question Answer Note LastModified by Organization D etails LastModified Time Are you able to care for yourself? Yes Information n ot available 11/29/2023 Mental Status None recorded. Family History Relationship Description Onset Age of this Age Resolved Age Notes LastModified by Organization Details LastModified Time Father Heart disease [email or web address] Not available 2023 15:33:27 Mother Diabetes mellitus [email or web address] Not available 2023 15:33:32 Medical History Condition Response Coronary Artery Disease N Other N Atrial Fibrillation N High Blood Pressure N Depression N COPD N Blood Clots N Anxiety Disorder Y Muscle, Joint, or Bone Problems N Acid Reflux (GERD) N Cancer N Stroke N High Cholesterol N Liver Disease N Headaches N Kidney or Bladder Problems N Thyroid Problems N GI Problems N Skin Problems N Anemia N Heart Attack (MD) N Diabetes N Seizures/Epilepsy N Asthma N Allergies N Hepatitis N Osteoporosis N Heart Failure N Immunizations Vaccine Type Date Status Note Provider Nam e and Address Organization Details Recorded Time Influenza, high-dose, trivalent, PF 06/05/2024 completed Ganesh Prince MD Attn: Accounting[address] [facility], [place], [address], [facility] - [facility] 06/14/2024 20:45:51 Past Encounters Encounter ID Performer Location Encounter Start Date Encounter Closed Date Diagnosis/Indication Diagnosis SNOMED-CT Code Diagnosis ICD10 Code [id number] Ganesh Prince MD [facility] [employer] [address] [place] [address] 06/05/2024 10:13:14 06/05/2024 10:57:06 Overweight 438160231 E66.3 Administra tion of influenza vaccine 27743653 Z23 Dementia 32083503 F03.90 Health Concerns Section Related Observation LastModified by Organization Detai ls LastModified Time None Recorded Concern Status LastModified by Organization Details LastModified Time None Recorded Payers Encounter Date Sequence Insurance Name Policy Number Policy Schilling Covered Member ID Schilling Member ID Guarantor Name 06/05/2024 2 [employer] (MEDICARE SUPPLEMENT) Ganesh Stephenson [id number] Ganesh Stephenson 06/05/2024 [place] - [facility] Ganesh Stephenson [id number] Ganesh Stephenson Notes Date Note Type Note Provider Name and Address Organization Details Recorded Time 06/05/2024 text/html he is in with hi s today he is becoming a little bit more unsettled with his dementia and more best behavioral outbursts no wandering no physical abuse.. Dyslipidemia she does try to watch what she prepares but we have liberalize the diet a little bit Ganesh Prince MD Attn: Accounting[address] [facility], [place], [address], [facility] - [facility] 06/14/2024 20:48:00
--- OUTSIDE RECORDS SUMMARY | 2024-08-13 05:15 | XMS_ITS | Encounter Summary ---
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
--- OUTSIDE RECORDS SUMMARY | 2024-08-13 05:15 | XMS_ITS | Encounter Summary ---
Author Organization [facility] Address [address] 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 MEAT APPRENTICE Plan reviewed and updated: 06/18/24 Patient and Family agree with POC: Yes DCAST CHECKER documented in this encounter Plan of Treatment Not on file documented as of this encounter Visit Diagnoses Not on filedocumented in this encounter Care Teams Polysomnograph Tech Relationship Specialty Start Date End Date Provider, None [place] PCP - General 04/27/24 Mustapha Cárdenas MD [address] [place] [address] PCP - Hospice Attending Provider 04/28/24 07/18/24 documented as of this encounter
--- OUTSIDE RECORDS SUMMARY | 2024-08-13 05:15 | XMS_ITS | Encounter Summary ---
Author Organization [facility] Address [address] [place] [address] Phone Care Team Providers Care Electronics Assembler And Tester Name Role Phone Provider, None Primary Care Provider Mustapha Hall MD Unavailable [phone] Reason for Visit * Auth/Cert (Routine) Specialty Diagnoses / Procedures Referred By Samira t Referred To Contact Referral ID Status Reason Start Date Expiration Date Visits Re quested Visits Authorized [id number] 1 1 Encounter Details Date Type Department Care Team (Latest Contact Info) Description 07/04/2024 11:00 AM REFINISH TECHNICIAN Home Care Visit [facility] [address] [place] [address] Homa Bernabe RN [place] - HOSPICE HOME VISIT Social History Tobacco Use Types Packs/Day Years Used Date Smoking Tobacco: Never Assessed Sex and Gender Information Value Date Recorded Sex Assigned at Not on file Legal Sex Male 2:48 AM REFINISH TECHNICIAN Gender Identity Not on file Sexual Orientation Not on file documented as of this encounter Last Filed Vital Signs Vital Sign Reading Time Taken Comments Blood Pressure 120/66 07/04/2024 11:25 AM REFINISH TECHNICIAN Pulse 83 07/04/2024 11:25 AM REFINISH TECHNICIAN Temperature 36.4 ??C (97.5 ??F) 07/04/2024 11:[address] Respiratory Rate 16 07/04/2024 11:25 AM REFINISH TECHNICIAN Oxygen Saturation 94% 07/04/2024 11:25 AM REFINISH TECHNICIAN Inhaled Oxygen Concentration - - Weight - - Height - - Body Mass Index - - documented in this encounter Plan of Treatment Not on file documented as of this encounter Visit Diagnoses Not on filedocumented in this encounter Care Teams Electronics Assembler And Tester Relationship Specialty Start Date End Date Provider, None [place] PCP - General 04/27/24 Mustapha Cárdenas MD [address] [place] [address] PCP - Hospice Attending Provider 04/28/24 07/18/24 documented as of this encounter
--- OUTSIDE RECORDS SUMMARY | 2024-08-13 05:15 | XMS_ITS | Encounter Summary ---
Author Organization [facility] Address [address] [place] [address] Phone Care Team Providers Care Pbx Mechanic Name Role Phone Provider, None Primary Care Provider Mustapha Hall MD Unavailable [phone] Reason for Visit * Auth/Cert (Routine) Specialty Diagnoses / Procedures Referred By Samira yu Referred To Contact Referral ID Status Reason Start Date Expiration Date Visits Re quested Visits Authorized [id number] 1 1 Encounter Details Date Type Department Care Team (Latest Contact Info) Description 07/08/2024 1:00 PM CITY PLANNER [facility] [address] [place] [address] Earl Roblero CNA [place] [facility] - [facility] VISIT Social History Tobacco Use Types Packs/Day Years Used Date Smoking Tobacco: Never Assessed Sex and Gender Information Value Date Recorded Sex Assigned at Not on file Legal Sex Male 2:48 AM CITY PLANNER Gender Identity Not on file Sexual Orientation Not on file documented as of this encounter Last Filed Vital Signs Vital Sign Reading Time Taken Comments Blood Pressure 138/80 07/08/2024 1:25 PM CITY PLANNER Pulse 100 07/08/2024 1:25 PM CITY PLANNER Temperature 37.1 ??C (98.7 ??F) 07/08/2024 1:25 PM CS T Respiratory Rate 16 07/08/2024 1:25 PM CITY PLANNER Oxygen Saturation 98% 07/08/2024 1:25 PM CITY PLANNER Inhaled Oxygen Concentration - - Weight - - Height - - Body Mass Index - - documented in this encounter Plan of Treatment Not on file documented as of this encounter Visit Diagnoses Not on filedocumented in this encounter Hospice Visit - Care Plan Visit Details Visit Type -[facility] - HOSPICE Vi sit Discipline -Vba Developer Problems Problem Description Start Date Status Goals Interve ntions [facility] SERVICES Disciplines: Vba Developer 04/28/2024 Active 1 goal linked to scheduled/document ed intervention 1 goal intervention scheduled/document ed in this visit [facility] PROVIDE BATH Disciplines: Vba Developer 04/28/2024 Active - 1 problem intervention scheduled/document ed in this visit [facility] CARE PLAN Disciplines: Vba Developer [facility] Care Plan 04/28/2024 Active - 7 problem interventions scheduled/document ed in this visit [facility] CARE PLAN Disciplines: Vba Developer [facility] Care Plan 05/13/2024 Active - 1 [...] condition, complaints and safety concerns to the Oil And Gas Well Treatment Operator. Problem:[facility] SERVICES Goal:[facility] Care Plan Completed [...] declines. Problem:[facility] CARE PLAN Completed Communicate with Gear Cutter Description: Communicate with mine equipment design engineer as needed. Problem:[facility] CARE PLAN Completed Assist With Shaving Description: Shave patient unless patient/caregiver declines. Problem:[facility] CARE PLAN Completed documented in this encounter Care Teams Pbx Mechanic Relationship Specialty Start Date End Date Provider, None [place] PCP - General 04/27/24 Mustapha Cárdenas MD [address] [place] [address] PCP - Hospice Attending Provider 04/28/24 07/18/24 documented as of this encounter
--- OUTSIDE RECORDS SUMMARY | 2024-08-13 05:15 | XMS_ITS | Encounter Summary ---
Author Organization [facility] Address [address] [place] [address] Phone Care Team Providers Care Dye Tank Tender Name Role Phone Provider, None Primary Care Provider Mustapha Hall MD Unavailable [phone] Reason for Visit * Auth/Cert (Routine) Specialty Diagnoses / Procedures Referred By Samira yu Referred To Contact Referral ID Status Reason Start Date Expiration Date Visits Re quested Visits Authorized [id number] 1 1 Encounter Details Date Type Department Care Team (Latest Contact Info) Description 05/27/2024 11:00 AM CDT [facility] [address] [place] [address] Homa Bernabe RN [place] - HOSPICE HOME VISIT Social History Tobacco Use Types Packs/Day Years Used Date Smoking Tobacco: Never Assessed Sex and Gender Information Value Date Recorded Sex Assigned at Not on file Legal Sex Male 2:48 AM COLD MILL SUPERVISOR Gender Identity Not on file Sexual [...] on filedocumented in this encounter Care Teams Dye Tank Tender Relationship Specialty Start Date End Date Provider, None [place] PCP - General 04/27/24 Mustapha Cárdenas MD [address] [place] [address] PCP - Hospice Attending Provider 04/28/24 07/18/24 documented as of this encounter
--- OUTSIDE RECORDS SUMMARY | 2024-08-13 05:15 | XMS_ITS | Encounter Summary ---
Author Organization [facility] Address [address] [place] [address] Phone Care Team Providers Care Forklift Material Handler Name Role Phone Provider, None Primary Care Provider Mustapha Hall MD Unavailable Reason for Visit * Auth/Cert (Routine) Specialty Diagnoses / Procedures Referred By Samira yu Referred To Contact Referral ID Status Reason Start Date Expiration Date Visits Re quested Visits Authorized [id number] 1 1 Encounter Details Date Type Department Care Team (Latest Contact Info) Description 05/30/2024 3:30 PM CDT [facility] [address] [place] [address] Earl Roblero CNA [place] [facility] - [facility] VISIT Social History Tobacco Use Types Packs/Day Years Used Date Smoking Tobacco: Never Assessed Sex and Gender Information Value Date Recorded Sex Assigned at Not on file Legal Sex Male 2:48 AM MANAGEMENT LEAD Gender Identity Not on file Sexual Orientation Not on file documented as of this encounter Plan of Treatment Not on file documented as of this encounter Visit Diagnoses Not on filedocumented in this encounter Hospice Visit - Care Plan Visit Details Visit Type -[facility] - HOSPICE Vi sit Discipline -Binding Cutter Synthetic Cloth Problems Problem Description Start Date Status Goals Interve ntions [facility] SERVICES Disciplines: Binding Cutter Synthetic Cloth 04/28/2024 Active 1 goal linked to scheduled/document ed intervention 1 goal intervention scheduled/document ed in this visit [facility] PROVIDE BATH Disciplines: Binding Cutter Synthetic Cloth 04/28/2024 Active - 1 problem intervention scheduled/document ed in this visit [facility] CARE PLAN Disciplines: Binding Cutter Synthetic Cloth [facility] Care Plan 04/28/2024 Active - 7 problem interventions scheduled/document ed in this visit [facility] CARE PLAN Disciplines: Binding Cutter Synthetic Cloth [facility] Care Plan 05/13/2024 Active - 1 [...] condition, complaints and safety concerns to the Scarfer Operator. Problem:[facility] SERVICES Goal:[facility] Care Plan Completed [...] declines. Problem:[facility] CARE PLAN Completed Communicate with Contract Paralegal Description: Communicate with department clinician as needed. Problem:[facility] CARE PLAN Completed Assist With Shaving Description: Shave patient unless patient/caregiver declines. Problem:[facility] CARE PLAN Completed documented in this encounter Care Teams Forklift Material Handler Relationship Specialty Start Date End Date Provider, None [place] PCP - General 04/27/24 Mustapha Cárdenas MD [address] [place] [address] PCP - Hospice Attending Provider 04/28/24 07/18/24 documented as of this encounter
--- OUTSIDE RECORDS SUMMARY | 2024-08-13 05:15 | XMS_ITS | Encounter Summary ---
Author Organization [facility] Address [address] [place] [address] Phone Care Team Providers Care Paving Rammer Name Role Phone Provider, None Primary Care Provider Mustapha Hall MD Unavailable [phone] Reason for Visit * Auth/Cert (Routine) Specialty Diagnoses / Procedures Referred By Samira yu Referred To Contact Referral ID Status Reason Start Date Expiration Date Visits Re quested Visits Authorized [id number] 1 1 Encounter Details Date Type Department Care Team (Latest Contact Info) Description 06/06/2024 11:00 AM CDT Home Care Visit [facility] [address] [place] [address] Homa Bernabe RN [place] SN - HOSPICE HOME VISIT Social History Tobacco Use Types Packs/Day Years Used Date Smoking Tobacco: Never Assessed Sex and Gender Information Value Date Recorded Sex Assigned at Not on file Legal Sex Male 2:48 AM SHAKE MAKER Gender Identity Not on file Sexual [...] on filedocumented in this encounter Care Teams Paving Rammer Relationship Specialty Start Date End Date Provider, None [place] PCP - General 04/27/24 Mustapha Cárdenas MD [address] [place] [address] PCP - Hospice Attending Provider 04/28/24 07/18/24 documented as of this encounter
--- OUTSIDE RECORDS SUMMARY | 2024-08-13 05:15 | XMS_ITS | Encounter Summary ---
Author Organization [facility] Address [address] [facility] [place] [address] Phone Care Team Providers Care Probation And Patrol Agent Name Role Phone Provider, None Primary Care Provider Mustapha Hall MD Unavailable [phone] Encounter Details Date Type Department Care Team (Late st Contact Info) Description 06/24/2024 Telephone [facility] [address] [place] [address] Homa Bernabe, RN [place] Social History Tobacco Use Types Packs/Day Years Used Date Smoking Tobacco: Never Assessed Sex and Gender Information Value Date Recorded Sex Assigned at Not on file Legal Sex Male 2:48 AM SQL BI DEVELOPER Gender Identity Not on file Sexual Orientation Not on file documented as of this encounter Miscellaneous Notes * Telephone Encounter - Homa Bernabe RN - 06/24/2024 10:51 AM CST Spoke to Dr Cárdenas regarding pending lorazepam to [facility]. BI DEVELOPER documented in this encounter Plan of Treatment Not on file documented as of this encounter Visit Diagnoses Diagnosis Terminal care- Primary Encounter for palliative care documented in this encounter Care Teams Probation And Patrol Agent Relationship Specialty Start Date End Date Provider, None [place] PCP - General 04/27/24 Mustapha Cárdenas MD [address] [place] [address] PCP - Hospice Attending Provider 04/28/24 07/18/24 documented as of this encounter
--- OUTSIDE RECORDS SUMMARY | 2024-08-13 05:15 | XMS_ITS | Encounter Summary ---
Author Organization [facility] Address [address] [place] [address] Phone Care Team Providers Care Clinical Coordinator Name Role Phone Provider, None Primary Care Provider Mustapha Hall MD Unavailable [phone] Reason for Visit * Auth/Cert (Routine) Specialty Diagnoses / Procedures Referred By Samira yu Referred To Contact Referral ID Status Reason Start Date Expiration Date Visits Re quested Visits Authorized [id number] 1 1 Encounter Details Date Type Department Care Team (Latest Contact Info) Description 06/26/2024 1:00 PM DRIVER/GUIDE [facility] [address] [place] [address] Earl Roblero CNA [place] [facility] - [facility]ICE VISIT Social History Tobacco Use Types Packs/Day Years Used Date Smoking Tobacco: Never Assessed Sex and Gender Information Value Date Recorded Sex Assigned at Not on file Legal Sex Male 2:48 AM DRIVER/GUIDE Gender Identity Not on file Sexual Orientation Not on file documented as of this encounter Last Filed Vital Signs Vital Sign Reading Time Taken Comments Blood Pressure 112/74 06/26/2024 1:12 PM DRIVER/GUIDE Pulse 102 06/26/2024 1:12 PM DRIVER/GUIDE Temperature - - Respiratory Rate 18 06/26/2024 1:12 PM DRIVER/GUIDE Oxygen Saturation - - Inhaled Oxygen Concentration - - Weight - - Height - - Body Mass Index - - documented in this encounter Plan of Treatment Not on file documented as of this encounter Visit Diagnoses Not on filedocumented in this encounter Hospice Visit - Care Plan Visit Details Visit Type -[facility] - HOSPICE Vi sit Discipline -Dairy Farmer Problems Problem Description Start Date Status Goals Interve ntions [facility] SERVICES Disciplines: Dairy Farmer 04/28/2024 Active 1 goal linked to scheduled/document ed intervention 1 goal intervention scheduled/document ed in this visit [facility] PROVIDE BATH Disciplines: Dairy Farmer 04/28/2024 Active - 1 problem intervention scheduled/document ed in this visit [facility] CARE PLAN Disciplines: Dairy Farmer [facility] Care Plan 04/28/2024 Active - 7 problem interventions scheduled/document ed in this visit [facility] CARE PLAN Disciplines: Dairy Farmer [facility] Care Plan 05/13/2024 Active - 1 [...] condition, complaints and safety concerns to the Form Worker. Problem:[facility] SERVICES Goal:[facility] Care Plan Completed [...] declines. Problem:[facility] CARE PLAN Completed Communicate with Corporation Secretary Description: Communicate with line assembler aircraft as needed. Problem:[facility] CARE PLAN Completed Assist With Shaving Description: Shave patient unless patient/caregiver declines. Problem:[facility] CARE PLAN Completed documented in this encounter Care Teams Clinical Coordinator Relationship Specialty Start Date End Date Provider, None [place] PCP - General 04/27/24 Mustapha Cárdenas MD [address] [place] [address] PCP - Hospice Attending Provider 04/28/24 07/18/24 documented as of this encounter
--- OUTSIDE RECORDS SUMMARY | 2024-08-13 05:15 | XMS_ITS | Clinical Summary ---
Author Organization [facility] Address [address] [address] Phone Care Team Providers Care Active Directory Engineer Name Role Phone Provider, None Primary [...] Department Care Team Description 07/18/2024 11:00 AM [facility] Home Care Visit [address] [address] Homa Bernabe RN SN - HOSPICE DISCHARGE 07/15/2024 1:00 PM [facility] Home Care Visit [address] [address] Earl Roblero CNA [facility] - HOSPICE VISIT 07/15/2024 11:00 AM [facility] Home Care Visit [address] [address] Homa Bernabe RN SN - HOSPICE HOME VISIT 07/15/2024 Travel 07/12/2024 Plan of Care Documentation [address] [address] 07/11/2024 1:00 PM [facility] Home Care Visit [address] [address] Toya Fung CNA [facility] - HOSPICE VISIT 07/11/2024 Home Care Visit [address] [address] Homa Bernabe, RN CASE COMMUNICATION 07/09/2024 1:00 PM [facility] Home Care Visit [address] [address] Homa Bernabe, RN SN - HOSPICE HOME VISIT 07/09/2024 Lab Requisition [facility] Services [address] [place] [address] Mustapha Cárdenas MD 07/08/2024 1:00 PM [facility] Home Care Visit [address] [address] Earl Roblero CNA [facility] - HOSPICE VISIT 07/07/2024 Home Care Visit [address] [address] Homa Bernabe, RN CASE COMMUNICATION 07/04/2024 1:00 PM [facility] Home Care Visit [address] [address] Earl Roblero CNA [facility] - HOSPICE VISIT 07/04/2024 11:00 AM [facility] Home Care Visit [address] [address] Homa Bernabe, RN SN - HOSPICE HOME VISIT 07/04/2024 Travel 07/02/2024 11:00 AM [facility] [address] [place] [address] Homa Bernabe, RN SN - HOSPICE HOME VISIT 07/02/2024 Plan of Care Documentation [address] [address] 07/02/2024 Travel 07/01/2024 1:00 PM [facility] Home Care Visit [address] [address] Earl Roblero CNA [facility] - HOSPICE VISIT 06/28/2024 11:00 AM [facility] [address] [place] [address] Homa Bernabe, RN SN - HOSPICE HOME VISIT 06/28/2024 Travel 06/27/2024 [facility] [address] [place] [address] Homa Bernabe, RN CASE COMMUNICATION 06/26/2024 1:00 PM [facility] [address] [place] [address] Earl Roblero CNA [facility] - HOSPICE VISIT 06/25/2024 Lab Requisition [facility] Laboratory Services [address] [place] [address] Yael Cárdenas DO 06/24/2024 10:00 AM [facility] Home Care Visit [address] [address] Homa Bernabe, RN SN - HOSPICE HOME VISIT 06/24/2024 [facility] [address] [place] [address] Homa Bernabe, RN 06/24/2024 Travel 06/24/2024 Home Care Visit [address] [address] Homa Bernabe, RN CASE COMMUNICATION 06/20/2024 11:00 AM [facility] [address] [place] [address] Homa Bernabe, RN SN - HOSPICE HOME VISIT 06/19/2024 1:00 PM [facility] Home Care Visit [address] [address] Earl Roblero CNA [facility] - HOSPICE VISIT 06/18/2024 Plan of Care Documentation [address] [address] 06/17/2024 10:00 AM [facility] Home Care Visit [address] [address] Homa Bernabe, TOBI SN - HOSPICE HOME VISIT 06/17/2024 Travel 06/11/2024 11:00 AM CDT [facility] [address] [place] [address] Homa Bernabe, RN SN - HOSPICE HOME VISIT 06/11/2024 Travel 06/06/2024 11:00 AM CDT [facility] [address] [place] [address] Homa Bernabe, RN SN - HOSPICE HOME VISIT 06/06/2024 Travel 06/05/2024 1:00 PM CDT [facility] [address] [place] [address] Earl Roblero CNA [facility] - HOSPICE VISIT 06/04/2024 Plan of Care Documentation [address] [address] 06/04/2024 [facility] [address] [place] [address] Vlad Mroris TELEPHONE ENCOUNTER 06/03/2024 11:00 AM CDT [facility] [address] [place] [address] Homa Bernabe, RN SN - HOSPICE HOME VISIT 06/03/2024 Travel 05/30/2024 3:30 PM CDT [facility] [address] [place] [address] Earl Roblero CNA [facility] - HOSPICE VISIT 05/30/2024 11:00 AM CDT [facility] [address] [place] [address] Homa Bernabe, RN SN - HOSPICE HOME VISIT 05/30/2024 Travel 05/27/2024 11:00 AM CDT [facility] [address] [place] [address] Homa Bernabe, RN SN - HOSPICE HOME VISIT 05/27/2024 Travel 05/23/2024 11:00 AM CDT Home Care Visit [address] [address] Homa Bernabe, RN SN - HOSPICE HOME VISIT 05/23/2024 Travel 05/22/2024 1:00 PM CDT Home Care Visit [address] [address] Earl Roblero CNA [facility] - HOSPICE VISIT 05/21/2024 11:00 AM CDT Home Care Visit [address] [address] Homa Bernabe, RN SN - HOSPICE HOME VISIT 05/21/2024 Plan of Care Documentation [address] [address] 05/21/[address] [address] Homa Bernabe, RN 05/21/2024 Travel 05/16/2024 11:00 AM CDT Home Care Visit [address] [address] Homa Bernabe, RN SN - HOSPICE HOME VISIT 05/16/2024 Travel 05/15/2024 1:00 PM CDT Home Care Visit [address] [address] Earl Roblero CNA [facility] - HOSPICE VISIT 05/13/2024 11:00 AM CDT Home Care Visit [address] [address] Homa Bernabe, RN SN - HOSPICE HOME VISIT 05/13/[address] [address] Homa Bernabe, RN 05/13/2024 Travel from Last 3 Months Social History Tobacco Use Types Packs/Day Years Used Date Smoking Tobacco: Never Assessed Sex and Gender Information Value Date Recorded Sex Assigned at Not on file Legal Sex Male 2:48 AM KAIWHAKAHAERE Gender Identity Not on file Sexual Orientation Not on file Last Filed Vital Signs Vital Sign Reading Time Taken Comments Blood Pressure 122/86 07/15/2024 2:00 PM [facility] Pulse 90 07/15/2024 2:00 PM [facility] Temperature 36.6 ??C (97.8 ??F) 07/15/2024 2:00 PM CS T Respiratory Rate 18 07/15/2024 2:00 PM [facility] Oxygen Saturation 96% 07/15/2024 11:02 AM [facility] Inhaled Oxygen Concentration - - Weight - [...] Comments CULTURE, URINE Routine 07/09/2024 4:00 AM [facility] CULTURE, URINE Routine 06/25/2024 9:48 AM [facility] from Last 3 Months Results * CULTURE, URINE (07/09/2024 4:00 AM K[facility]AHAERE) Only the most recent of2 resultswithin the time period is included. CULTURE RESULTS Mixed Growth of One or More Distal Urethral Contaminants 07/11/2024 12:38 AM [facility] Culture URINE SPECIMEN / Unknown Non-Phlebotomy Collection / Unknown 07/09/2024 4:00 AM [facility] 07/09/2024 2:39 PM [facility] us Mustapha Cárdenas MD MICROBIOLOGY - GENERAL O RDERABLES Final Result [facility] [address] [place] [address], [place] from Last 3 Months Insurance MEDICARE Advance Directives Documents on File Type Date Recorded Patient Certified Neurodiagnostic Technologist Expl anation POLST/POST/MT DNR 05/07/2024 10:06 AM POLS T 04/28/24 Power of Director Weights And Measures for Health Care 04/28/2024 4:21 PM poa 12/10/09 * No CPR-Comfort Focused Treatment (Latest Code Status on File) Date Activated Date Inactivated Comments 04/28/2024 5:48 PM POLST signed b y spouse/POA not yet signed by Dr Cárdenas. Healthcare Agents on File Name Relationship Healthcare Agent Relationshi p Communication Mirian Alvarezters Spouse Healthcare POA Care Teams Active Directory Engineer Relationship Specialty Start Date End Date Provider, None [place] PCP - General 04/27/24
--- OUTSIDE RECORDS SUMMARY | 2024-08-13 05:15 | XMS_ITS | Encounter Summary ---
Author Organization [facility] Address [address] [place] [address] Phone Care Team Providers Care Golf Player Assistant Name Role Phone Provider, None Primary Care Provider Mustapha Hall MD Unavailable [phone] Reason for Visit * Auth/Cert (Routine) Specialty Diagnoses / Procedures Referred By Samira t Referred To Contact Referral ID Status Reason Start Date Expiration Date Visits Re quested Visits Authorized [id number] 1 1 Encounter Details Date Type Department Care Team (Late st Contact Info) Description 06/04/2024 [facility] [address] [place] [address] Vlad Morris GA TELEPHONE ENCOUNTER Social History Tobacco Use Types Packs/Day Years Used Date Smoking Tobacco: Never Assessed Sex and Gender Information Value Date Recorded Sex Assigned at Not on file Legal Sex Male 2:48 AM DIESEL ENGINE MECHANIC APPRENTICE Gender Identity Not on file Sexual Orientation Not on file documented as of this encounter Plan of Treatment Not on file documented as of this encounter Visit Diagnoses Not on filedocumented in this encounter Hospice Visit - Actions and Narratives Actions Senior Merchandiser contacted pt spouse to schedule visit for this month. Spouse was pleasant and thanked Senior Merchandiser for the call. She stated that they had a lot of family visits this week and were a little worn out with company. Senior Merchandiser promised to check in with them next time. documented in this encounter Care Teams Golf Player Assistant Relationship Specialty Start Date End Date Provider, None [place] PCP - General 04/27/24 Mustapha Cárdenas MD [address] [place] [address] PCP - Hospice Attending Provider 04/28/24 07/18/24 documented as of this encounter
--- OUTSIDE RECORDS SUMMARY | 2024-08-13 05:15 | XMS_ITS | Encounter Summary ---
Author Organization [facility] Care Team Providers Care Car Body Inspector Name Role Phone Provider, None Primary Care Provider Mustapha Hall MD Unavailable [phone] Encounter Details Date Type Department Care Team (Latest Contact Info) Description 07/15/2024 Travel Social History Tobacco Use Types Packs/Day Years Used Date Smoking Tobacco: Never Assessed Sex and Gender Information Value Date Recorded Sex Assigned at Not on file Legal Sex Male 2:48 AM INTEGRATION MANAGER Gender Identity Not on file Sexual Orientation Not on file documented as of this encounter Plan of Treatment Not on file documented as of this encounter Visit Diagnoses Not on filedocumented in this encounter Care Teams Car Body Inspector Relationship Specialty Start Date End Date Provider, None [place] PCP - General 04/27/24 Mustapha Cárdenas MD [address] [place] [address] PCP - Hospice Attending Provider 04/28/24 07/18/24 documented as of this encounter
--- OUTSIDE RECORDS SUMMARY | 2024-08-13 05:15 | XMS_ITS | Encounter Summary ---
Author Organization [facility] Address [address] [place] [address] Phone Care Team Providers Care Patient Access Manager Name Role Phone Provider, None Primary Care Provider Mustapha Hall MD Unavailable [phone] Reason for Visit * Auth/Cert (Routine) Specialty Diagnoses / Procedures Referred By Samira yu Referred To Contact Referral ID Status Reason Start Date Expiration Date Visits Re quested Visits Authorized [id number] 1 1 Encounter Details Date Type Department Care Team (Latest Contact Info) Description 07/04/2024 1:00 PM CARBON CAPTURE POWER PLANT MANAGER [facility] [address] [place] [address] Earl Roblero CNA [place] [facility] - [facility]PICE VISIT Social History Tobacco Use Types Packs/Day Years Used Date Smoking Tobacco: Never Assessed Sex and Gender Information Value Date Recorded Sex Assigned at Not on file Legal Sex Male 2:48 AM CARBON CAPTURE POWER PLANT MANAGER Gender Identity Not on file Sexual Orientation Not on file documented as of this encounter Last Filed Vital Signs Vital Sign Reading Time Taken Comments Blood Pressure 131/72 07/04/2024 12:10 PM CARBON CAPTURE POWER PLANT MANAGER Pulse 76 07/04/2024 12:10 PM CARBON CAPTURE POWER PLANT MANAGER Temperature 36.6 ??C (97.8 ??F) 07/04/2024 12:[address] Respiratory Rate 18 07/04/2024 12:10 PM CARBON CAPTURE POWER PLANT MANAGER Oxygen Saturation - - Inhaled Oxygen Concentration - - Weight - - Height - - Body Mass Index - - documented in this encounter Plan of Treatment Not on file documented as of this encounter Visit Diagnoses Not on filedocumented in this encounter Hospice Visit - Care Plan Visit Details Visit Type -[facility] - HOSPICE Vi sit Discipline -Developmental Mathematics Professor Problems Problem Description Start Date Status Goals Interve ntions [facility] SERVICES Disciplines: Developmental Mathematics Professor 04/28/2024 Active 1 goal linked to scheduled/document ed intervention 1 goal intervention scheduled/document ed in this visit [facility] PROVIDE BATH Disciplines: Developmental Mathematics Professor 04/28/2024 Active - 1 problem intervention scheduled/document ed in this visit [facility] CARE PLAN Disciplines: Developmental Mathematics Professor [facility] Care Plan 04/28/2024 Active - 7 problem interventions scheduled/document ed in this visit [facility] CARE PLAN Disciplines: Developmental Mathematics Professor [facility] Care Plan 05/13/2024 Active - 1 [...] condition, complaints and safety concerns to the Business Systems Technician. Problem:[facility] SERVICES Goal:[facility] Care Plan Completed [...] declines. Problem:[facility] CARE PLAN Completed Communicate with Print Shop Chief Clerk Description: Communicate with end stapler as needed. Problem:[facility] CARE PLAN Completed Assist With Shaving Description: Shave patient unless patient/caregiver declines. Problem:[facility] CARE PLAN Completed documented in this encounter Care Teams Patient Access Manager Relationship Specialty Start Date End Date Provider, None [place] PCP - General 04/27/24 Mustapha Cárdenas MD [address] [place] [address] PCP - Hospice Attending Provider 04/28/24 07/18/24 documented as of this encounter
--- OUTSIDE RECORDS SUMMARY | 2024-08-13 05:15 | XMS_ITS | Encounter Summary ---
Author Organization [facility] Address [address] [place] [address] Phone Care Team Providers Care Accounting Intern Name Role Phone Provider, None Primary Care Provider Mustapha Hall MD Unavailable [phone] Encounter Details Date Type Department Care Team (Late st Contact Info) Description 06/18/2024 [facility] [address] [place] [address] Social History Tobacco Use Types Packs/Day Years Used Date Smoking Tobacco: Never Assessed Sex and Gender Information Value Date Recorded Sex Assigned at Not on file Legal Sex Male 2:48 AM COLD STRIP ROLLER Gender Identity Not on file Sexual Orientation [...] Changes in Services: None New Orders: Keflex SAFETY ANALYST Plan reviewed and updated: 07/02/24 Patient and Family agree with POC: Yes STRIP ROLLER * Hospice Plan of Care - Vlad Morris - 07/02/2024 9:10 AM CST IDG Date: 07/02/24 Computer Methods Analyst checks in with pt and family monthly. Family had declined last visit. Computer Methods Analyst will continue to check in with pt as needed. Family reported that they have no needs at this time. STRIP ROLLER documented in this encounter Plan of Treatment Not on file documented as of this encounter Visit Diagnoses Not on filedocumented in this encounter Care Teams Accounting Intern Relationship Specialty Start Date End Date Provider, None [place] PCP - General 04/27/24 Mustapha Cárdenas MD [address] [place] [address] PCP - Hospice Attending Provider 04/28/24 07/18/24 documented as of this encounter
--- OUTSIDE RECORDS SUMMARY | 2024-08-13 05:15 | XMS_ITS | Encounter Summary ---
Author Organization [facility] Address [address] [place] [address] Phone Care Team Providers Care Lineworker Name Role Phone Provider, None Primary Care Provider Mustapha Hall MD Unavailable [phone] Reason for Visit * Auth/Cert (Routine) Specialty Diagnoses / Procedures Referred By Samira yu Referred To Contact Referral ID Status Reason Start Date Expiration Date Visits Re quested Visits Authorized [id number] 1 1 Encounter Details Date Type Department Care Team (Latest Contact Info) Description 06/11/2024 11:00 AM CDT Home Care Visit [facility] [address] [place] [address] Homa Bernabe RN [place] SN - HOSPICE HOME VISIT Social History Tobacco Use Types Packs/Day Years Used Date Smoking Tobacco: Never Assessed Sex and Gender Information Value Date Recorded Sex Assigned at Not on file Legal Sex Male 2:48 AM WALL CRANE OPERATOR Gender Identity Not on file Sexual [...] on filedocumented in this encounter Care Teams Lineworker Relationship Specialty Start Date End Date Provider, None [place] PCP - General 04/27/24 Mustapha Cárdenas MD [address] [place] [address] PCP - Hospice Attending Provider 04/28/24 07/18/24 documented as of this encounter
--- OUTSIDE RECORDS SUMMARY | 2024-08-13 05:15 | XMS_ITS | Encounter Summary ---
Author Organization [facility] Care Team Providers Care Print Machine Operator Name Role Phone Provider, None Primary Care Provider Mustapha Hall MD Unavailable [phone] Encounter Details Date Type Department Care Team (Latest Contact Info) Description 05/27/2024 Travel Social History Tobacco Use Types Packs/Day Years Used Date Smoking Tobacco: Never Assessed Sex and Gender Information Value Date Recorded Sex Assigned at Not on file Legal Sex Male 2:48 AM SYSTEMS ADMINISTRATOR Gender Identity Not on file Sexual Orientation Not on file documented as of this encounter Plan of Treatment Not on file documented as of this encounter Visit Diagnoses Not on filedocumented in this encounter Care Teams Print Machine Operator Relationship Specialty Start Date End Date Provider, None [place] PCP - General 04/27/24 Mustapha Cárdenas MD [address] [place] [address] PCP - Hospice Attending Provider 04/28/24 07/18/24 documented as of this encounter
--- OUTSIDE RECORDS SUMMARY | 2024-08-13 05:15 | XMS_ITS | Encounter Summary ---
Author Organization [facility] Address [address] [place] [address] Phone Care Team Providers Care Armature Winder Repair Helper Name Role Phone Provider, None Primary Care Provider Mustapha Hall MD Unavailable [phone] Encounter Details Date Type Department Care Team (Late st Contact Info) Description 06/25/2024 [facility] [address] [place] [address] Yael Cárdenas DO [address] [address] Social History Tobacco Use Types Packs/Day Years Used Date Smoking Tobacco: Never Assessed Sex and Gender Information Value Date Recorded Sex Assigned at Not on file Legal Sex Male 2:48 AM PAPER CUTTER Gender Identity Not on file Sexual Orientation Not on file documented as of this encounter Plan of Treatment Not on file documented as of this encounter Procedures Procedure Name Priority Date/Time Associated Diagnosis Comments CULTURE, URINE Routine 06/25/2024 9:48 AM PAPER CUTTER documented in this encounter Results * CULTURE, URINE (06/25/2024 9:48 AM PAPER CUTTER) CULTURE RESULTS Mixed Growth of One or More Distal Urethral Contaminants 06/26/2024 8:52 PM PAPER CUTTER [facility] Culture URINE SPECIMEN COLLECTION, CLEAN CATCH / Unknown No Phlebotomy Charged / Unknown 06/25/2024 9:48 AM PAPER CUTTER 06/25/2024 10:41 AM PAPER CUTTER us Amarpreet S Cárdenas DO MICROBIOLOGY - GENERAL ORD ERABLES Final Result [facility] [address] [place] [address], documented in this encounter Visit Diagnoses Not on filedocumented in this encounter Care Teams Armature Winder Repair Helper Relationship Specialty Start Date End Date Provider, None [place] PCP - General 04/27/24 Mustapha Cárdenas MD [address] [place] [address] PCP - Hospice Attending Provider 04/28/24 07/18/24 documented as of this encounter
--- OUTSIDE RECORDS SUMMARY | 2024-08-13 05:15 | XMS_ITS | Encounter Summary ---
Author Organization [facility] Care Team Providers Care Medical Claims Specialist Name Role Phone Provider, None Primary Care Provider Mustapha Hall MD Unavailable [phone] Encounter Details Date Type Department Care Team (Latest Contact Info) Description 06/03/2024 Travel Social History Tobacco Use Types Packs/Day Years Used Date Smoking Tobacco: Never Assessed Sex and Gender Information Value Date Recorded Sex Assigned at Not on file Legal Sex Male 2:48 AM BUSINESS UNIT LEADER Gender Identity Not on file Sexual Orientation Not on file documented as of this encounter Plan of Treatment Not on file documented as of this encounter Visit Diagnoses Not on filedocumented in this encounter Care Teams Medical Claims Specialist Relationship Specialty Start Date End Date Provider, None [place] PCP - General 04/27/24 Mustapha Cárdenas MD [address] [place] [address] PCP - Hospice Attending Provider 04/28/24 07/18/24 documented as of this encounter
--- OUTSIDE RECORDS SUMMARY | 2024-08-13 05:15 | XMS_ITS | Encounter Summary ---
Author Organization [facility] Address [address] [place] [address] Phone Care Team Providers Care Medicaid Business Analyst Name Role Phone Provider, None Primary Care Provider Mustapha Hall MD Unavailable [phone] Reason for Visit * Auth/Cert (Routine) Specialty Diagnoses / Procedures Referred By Samira yu Referred To Contact Referral ID Status Reason Start Date Expiration Date Visits Re quested Visits Authorized [id number] 1 1 Encounter Details Date Type Department Care Team (Latest Contact Info) Description 06/19/2024 1:00 PM ACQUISITIONS ANALYST [facility] [address] [place] [address] Earl Roblero CNA [place] [facility] - HOSPICE VISIT Social History Tobacco Use Types Packs/Day Years Used Date Smoking Tobacco: Never Assessed Sex and Gender Information Value Date Recorded Sex Assigned at Not on file Legal Sex Male 2:48 AM ACQUISITIONS ANALYST Gender Identity Not on file Sexual Orientation Not on file documented as of this encounter Last Filed Vital Signs Vital Sign Reading Time Taken Comments Blood Pressure 130/71 06/19/2024 1:45 PM ACQUISITIONS ANALYST Pulse 92 06/19/2024 1:45 PM ACQUISITIONS ANALYST Temperature 36.6 ??C (97.8 ??F) 06/19/2024 1:45 PM CS T Respiratory Rate 16 06/19/2024 1:45 PM ACQUISITIONS ANALYST Oxygen Saturation - - Inhaled Oxygen Concentration - - Weight - - Height - - Body Mass Index - - documented in this encounter Plan of Treatment Not on file documented as of this encounter Visit Diagnoses Not on filedocumented in this encounter Hospice Visit - Care Plan Visit Details Visit Type -[facility] - HOSPICE Vi sit Discipline -Talent Acquisition Lead Problems Problem Description Start Date Status Goals Interve ntions [facility] SERVICES Disciplines: Talent Acquisition Lead 04/28/2024 Active 1 goal linked to scheduled/document ed intervention 1 goal intervention scheduled/document ed in this visit [facility] PROVIDE BATH Disciplines: Talent Acquisition Lead 04/28/2024 Active - 1 problem intervention scheduled/document ed in this visit [facility] CARE PLAN Disciplines: Talent Acquisition Lead [facility] Care Plan 04/28/2024 Active - 7 problem interventions scheduled/document ed in this visit [facility] CARE PLAN Disciplines: Talent Acquisition Lead [facility] Care Plan 05/13/2024 Active - 1 [...] condition, complaints and safety concerns to the Chief Operator Synthesis. Problem:[facility] SERVICES Goal:[facility] Care Plan Completed Evaluated [...] declines. Problem:[facility] CARE PLAN Completed Communicate with Real Estate Office Supervisor Description: Communicate with gifted program teacher as needed. Problem:[facility] CARE PLAN Completed Assist With Shaving Description: Shave patient unless patient/caregiver declines. Problem:[facility] CARE PLAN Completed documented in this encounter Care Teams Medicaid Business Analyst Relationship Specialty Start Date End Date Provider, None [place] PCP - General 04/27/24 Mustapha Cárdenas MD [address] [place] [address] PCP - Hospice Attending Provider 04/28/24 07/18/24 documented as of this encounter
--- OUTSIDE RECORDS SUMMARY | 2024-08-13 05:15 | XMS_ITS | Encounter Summary ---
Author Organization [facility] Address [address] [place] [address] Phone Care Team Providers Care Adjunct Art History Instructor Name Role Phone Provider, None Primary Care Provider Mustapha Hall MD Unavailable [phone] Reason for Visit * Auth/Cert (Routine) Specialty Diagnoses / Procedures Referred By Samira t Referred To Contact Referral ID Status Reason Start Date Expiration Date Visits Re quested Visits Authorized [id number] 1 1 Encounter Details Date Type Department Care Team (Late st Contact Info) Description 06/27/2024 [facility] [address] [place] [address] Homa Bernabe, RN [place] CASE COMMUNICATION Social History Tobacco Use Types Packs/Day Years Used Date Smoking Tobacco: Never Assessed Sex and Gender Information Value Date Recorded Sex Assigned at Not on file Legal Sex Male 2:48 AM QUILL LAYER Gender Identity Not on file Sexual Orientation Not on file documented as of this encounter Plan of Treatment Not on file documented as of this encounter Visit Diagnoses Not on filedocumented in this encounter Care Teams Adjunct Art History Instructor Relationship Specialty Start Date End Date Provider, None [place] PCP - General 04/27/24 Mustapha Cárdenas MD [address] [place] [address] PCP - Hospice Attending Provider 04/28/24 07/18/24 documented as of this encounter
--- OUTSIDE RECORDS SUMMARY | 2024-08-13 05:15 | XMS_ITS | Encounter Summary ---
Author Organization [facility] Address [address] [place] [address] Phone Care Team Providers Care Revenue Settlements Administrator Name Role Phone Provider, None Primary Care Provider Mustapha Hall MD Unavailable [phone] Reason for Visit * Auth/Cert (Routine) Specialty Diagnoses / Procedures Referred By Samira yu Referred To Contact Referral ID Status Reason Start Date Expiration Date Visits Re quested Visits Authorized [id number] 1 1 Encounter Details Date Type Department Care Team (Latest Contact Info) Description 07/15/2024 11:00 AM TARGET NETWORK ANALYST Home Care Visit [facility] [address] [place] [address] Homa Bernabe RN [place] SN - HOSPICE HOME VISIT Social History Tobacco Use Types Packs/Day Years Used Date Smoking Tobacco: Never Assessed Sex and Gender Information Value Date Recorded Sex Assigned at Not on file Legal Sex Male 2:48 AM TARGET NETWORK ANALYST Gender Identity Not on file Sexual Orientation Not on file documented as of this encounter Last Filed Vital Signs Vital Sign Reading Time Taken Comments Blood Pressure 122/87 07/15/2024 11:02 AM TARGET NETWORK ANALYST Pulse 91 07/15/2024 11:02 AM TARGET NETWORK ANALYST Temperature 36.3 ??C (97.3 ??F) 07/15/2024 11:[address] Respiratory Rate 16 07/15/2024 11:02 AM TARGET NETWORK ANALYST Oxygen Saturation 96% 07/15/2024 11:02 AM TARGET NETWORK ANALYST Inhaled Oxygen Concentration - - Weight - - Height - - Body Mass Index - - documented in this encounter Plan of Treatment Not on file documented as of this encounter Visit Diagnoses Not on filedocumented in this encounter Care Teams Revenue Settlements Administrator Relationship Specialty Start Date End Date Provider, None [place] PCP - General 04/27/24 Mustapha Cárdenas MD [address] [place] [address] PCP - Hospice Attending Provider 04/28/24 07/18/24 documented as of this encounter
--- OUTSIDE RECORDS SUMMARY | 2024-08-13 05:15 | XMS_ITS | Encounter Summary ---
Author Organization [facility] Address [address] [place] [address] Phone Care Team Providers Care Supervisor Diagnostic Name Role Phone Provider, None Primary Care Provider Mustapha Hall MD Unavailable [phone] Reason for Visit * Auth/Cert (Routine) Specialty Diagnoses / Procedures Referred By Samira yu Referred To Contact Referral ID Status Reason Start Date Expiration Date Visits Re quested Visits Authorized [id number] 1 1 Encounter Details Date Type Department Care Team (Latest Contact Info) Description 06/20/2024 11:00 AM MECHANIST Home Care Visit [facility] [address] [place] [address] Homa Bernabe RN [place] SN - HOSPICE HOME VISIT Social History Tobacco Use Types Packs/Day Years Used Date Smoking Tobacco: Never Assessed Sex and Gender Information Value Date Recorded Sex Assigned at Not on file Legal Sex Male 2:48 AM MECHANIST Gender Identity Not on file Sexual Orientation Not on file documented as of this encounter Last Filed Vital Signs Vital Sign Reading Time Taken Comments Blood Pressure 111/74 06/20/2024 11:24 AM MECHANIST Pulse 102 06/20/2024 11:24 AM MECHANIST Temperature 36.4 ??C (97.5 ??F) 06/20/2024 11:[address] Respiratory Rate 16 06/20/2024 11:24 AM MECHANIST Oxygen Saturation 95% 06/20/2024 11:24 AM MECHANIST Inhaled Oxygen Concentration - - Weight - - Height - - Body Mass Index - - documented in this encounter Plan of Treatment Not on file documented as of this encounter Visit Diagnoses Not on filedocumented in this encounter Care Teams Supervisor Diagnostic Relationship Specialty Start Date End Date Provider, None [place] PCP - General 04/27/24 Mustapha Cárdenas MD [address] [place] [address] PCP - Hospice Attending Provider 04/28/24 07/18/24 documented as of this encounter
--- OUTSIDE RECORDS SUMMARY | 2024-08-13 05:15 | XMS_ITS | Encounter Summary ---
Author Organization [facility] Address [address] [place] [address] Phone Care Team Providers Care [employer]ayer [employer] Name Role Phone Provider, None Primary Care Provider Mustapha Hall MD Unavailable [phone] Reason for Visit * Auth/Cert (Routine) Specialty Diagnoses / Procedures Referred By Samira t Referred To Contact Referral ID Status Reason Start Date Expiration Date Visits Re quested Visits Authorized [id number] 1 1 Encounter Details Date Type Department Care Team (Late st Contact Info) Description 07/07/2024 [facility] [address] [place] [address] Homa Bernabe, RN [place] CASE COMMUNICATION Social History Tobacco Use Types Packs/Day Years Used Date Smoking Tobacco: Never Assessed Sex and Gender Information Value Date Recorded Sex Assigned at Not on file Legal Sex Male 2:48 AM SENSITIZER Gender Identity Not on file Sexual Orientation Not on file documented as of this encounter Plan of Treatment Not on file documented as of this encounter Visit Diagnoses Not on filedocumented in this encounter Care Teams [employer] Relationship Specialty Start Date End Date Provider, None [place] PCP - General 04/27/24 Mustapha Cárdenas MD [address] [place] [address] PCP - Hospice Attending Provider 04/28/24 07/18/24 documented as of this encounter
--- OUTSIDE RECORDS SUMMARY | 2024-08-13 05:15 | XMS_ITS | Encounter Summary ---
Author Organization [facility] Address [address] [place] [address] Phone Care Team Providers Care Ingredient Scaler Helper Name Role Phone Provider, None Primary Care Provider Mustapha Hall MD Unavailable [phone] Reason for Visit * Auth/Cert (Routine) Specialty Diagnoses / Procedures Referred By Samira t Referred To Contact Referral ID Status Reason Start Date Expiration Date Visits Re quested Visits Authorized [id number] 1 1 Encounter Details Date Type Department Care Team (Latest Contact Info) Description 07/02/2024 11:00 AM STEAM SHOVEL ENGINEER Home Care Visit [facility] [address] [place] [address] Homa Bernabe RN [place] SN - HOSPICE HOME VISIT Social History Tobacco Use Types Packs/Day Years Used Date Smoking Tobacco: Never Assessed Sex and Gender Information Value Date Recorded Sex Assigned at Not on file Legal Sex Male 2:48 AM STEAM SHOVEL ENGINEER Gender Identity Not on file Sexual Orientation Not on file documented as of this encounter Last Filed Vital Signs Vital Sign Reading Time Taken Comments Blood Pressure 109/68 07/02/2024 11:40 AM STEAM SHOVEL ENGINEER Pulse 81 07/02/2024 11:40 AM STEAM SHOVEL ENGINEER Temperature 36.4 ??C (97.5 ??F) 07/02/2024 11:[address] Respiratory Rate 16 07/02/2024 11:40 AM STEAM SHOVEL ENGINEER Oxygen Saturation 96% 07/02/2024 11:40 AM STEAM SHOVEL ENGINEER Inhaled Oxygen Concentration - - Weight - - Height - - Body Mass Index - - documented in this encounter Plan of Treatment Not on file documented as of this encounter Visit Diagnoses Not on filedocumented in this encounter Care Teams Ingredient Scaler Helper Relationship Specialty Start Date End Date Provider, None [place] PCP - General 04/27/24 Mustapha Cárdenas MD [address] [place] [address] PCP - Hospice Attending Provider 04/28/24 07/18/24 documented as of this encounter
--- OUTSIDE RECORDS SUMMARY | 2024-08-13 05:15 | XMS_ITS | Encounter Summary ---
Author Organization [facility] Care Team Providers Care Rn Mental Health Name Role Phone Provider, None Primary Care Provider Mustapha Hall MD Unavailable Encounter Details Date Type Department Care Team (Latest Contact Info) Description 06/17/2024 Travel Social History Tobacco Use Types Packs/Day Years Used Date Smoking Tobacco: Never Assessed Sex and Gender Information Value Date Recorded Sex Assigned at Not on file Legal Sex Male 2:48 AM DIESEL TRAILER MECHANIC Gender Identity Not on file Sexual Orientation Not on file documented as of this encounter Plan of Treatment Not on file documented as of this encounter Visit Diagnoses Not on filedocumented in this encounter Care Teams Rn Mental Health Relationship Specialty Start Date End Date Provider, None [place] PCP - General 04/27/24 Mustapha Cárdenas MD [address] [place] [address] PCP - Hospice Attending Provider 04/28/24 07/18/24 documented as of this encounter
--- OUTSIDE RECORDS SUMMARY | 2024-08-13 05:15 | XMS_ITS ---
Author Organization [facility] Address [address] [place] [address] Phone Care Team Providers Care Systems Designer Name Role Phone Unavailable Unavailable Unavailable Plan of Treatment No Plan of Treatment Recorded Assessments Includes: Assessments for all patient encounters No Assessments Recorded Medical Equipment - Implanted Devices Includes: Current and historical Devices No Medical Equipment Recorded Medications Administered Includes: Administered Medications in patient's chart No Administered Medications Recorded Results Includes: Results from 08/13/2023 through 08/13/2024 No Results Recorded For Specified Dates History of Present Illness History of Present Illness not supported for this document type No History of Present Illness Recorded Social History No Social History Recorded - Smoking Status Unknown Medical History Includes: Medical History in patient's chart No Medical History Recorded Family History Includes: Family History in patient's chart No Family History Recorded Review of Systems Review of Systems not supported for this document type No Review of Systems Recorded Mental Status No Mental Status Recorded Functional Status No Functional Status Recorded Physical Exam Physical Exam not supported for this document type No Physical Exam Recorded Clinical Notes Includes: Signed Clinical Notes starting from 09/01/2022 No Clinical Notes Recorded
--- OUTSIDE RECORDS SUMMARY | 2024-08-13 05:15 | XMS_ITS | Encounter Summary ---
Author Organization [facility] Address [address] [place] [address] Phone Care Team Providers Care Fruit Dumper Name Role Phone Provider, None Primary Care Provider Mustapha Hall MD Unavailable [phone] Encounter Details Date Type Department Care Team (Late st Contact Info) Description 07/02/2024 [facility] [address] [place] [address] Social History Tobacco Use Types Packs/Day Years Used Date Smoking Tobacco: Never Assessed Sex and Gender Information Value Date Recorded Sex Assigned at Not on file Legal Sex Male 2:48 AM BROKE MAN Gender Identity Not on file Sexual [...] Changes in Services: None New Orders: None REGISTERED NURSE Plan reviewed and updated: 07/16/24 Patient and Family agree with POC: Yes E MAN * Hospice Plan of Care - Vlad Morris - 07/16/2024 10:10 AM CST Family declined last visit, but reported pt moving into a memory care facility. E MAN documented in this encounter Plan of Treatment Not on file documented as of this encounter Visit Diagnoses Not on filedocumented in this encounter Care Teams Fruit Dumper Relationship Specialty Start Date End Date Provider, None [place] PCP - General 04/27/24 Mustapha Cárdenas MD [address] [place] [address] PCP - Hospice Attending Provider 04/28/24 07/18/24 documented as of this encounter
--- OUTSIDE RECORDS SUMMARY | 2024-08-13 05:15 | XMS_ITS | Encounter Summary ---
Author Organization [facility] Care Team Providers Care Welder Railcar Mechanic Name Role Phone Provider, None Primary Care Provider Mustapha Hall MD Unavailable Encounter Details Date Type Department Care Team (Latest Contact Info) Description 06/06/2024 Travel Social History Tobacco Use Types Packs/Day Years Used Date Smoking Tobacco: Never Assessed Sex and Gender Information Value Date Recorded Sex Assigned at Not on file Legal Sex Male 2:48 AM TRUCK ENGINE ASSEMBLER Gender Identity Not on file Sexual Orientation Not on file documented as of this encounter Plan of Treatment Not on file documented as of this encounter Visit Diagnoses Not on filedocumented in this encounter Care Teams Welder Railcar Mechanic Relationship Specialty Start Date End Date Provider, None [place] PCP - General 04/27/24 Mustapha Cárdenas MD [address] [place] [address] PCP - Hospice Attending Provider 04/28/24 07/18/24 documented as of this encounter
--- OUTSIDE RECORDS SUMMARY | 2024-08-13 05:15 | XMS_ITS | Encounter Summary ---
Author Organization [facility] Address [address] [place] [address] Phone Care Team Providers Care Scarf Gluer Name Role Phone Provider, None Primary Care Provider Mustapha Hall MD Unavailable [phone] Reason for Visit * Auth/Cert (Routine) Specialty Diagnoses / Procedures Referred By Samira yu Referred To Contact Referral ID Status Reason Start Date Expiration Date Visits Re quested Visits Authorized [id number] 1 1 Encounter Details Date Type Department Care Team (Late st Contact Info) Description 07/11/2024 1:00 PM CATH LAB TECH [facility] [address] [place] [address] Toya Fung CNA [place] [facility] Social History Tobacco Use Types Packs/Day Years Used Date Smoking Tobacco: Never Assessed Sex and Gender Information Value Date Recorded Sex Assigned at Not on file Legal Sex Male 2:48 AM CATH LAB TECH Gender Identity Not on file Sexual Orientation Not on file documented as of this encounter Last Filed Vital Signs Vital Sign Reading Time Taken Comments Blood Pressure 104/86 07/11/2024 12:40 PM CATH LAB TECH Pulse 101 07/11/2024 12:40 PM CATH LAB TECH Temperature 36.4 ??C (97.5 ??F) 07/11/2024 12:[address] Respiratory Rate 18 07/11/2024 12:40 PM CATH LAB TECH Oxygen Saturation 98% 07/11/2024 12:40 PM CATH LAB TECH Inhaled Oxygen Concentration - - Weight - - Height - - Body Mass Index - - documented in this encounter Plan of Treatment Not on file documented as of this encounter Visit Diagnoses Not on filedocumented in this encounter Hospice Visit - Care Plan Visit Details Visit Type -[facility] - HOSPICE Vi sit Discipline -Radar Mechanic Problems Problem Description Start Date Status Goals Interve ntions [facility] SERVICES Disciplines: Radar Mechanic 04/28/2024 Active 1 goal linked to scheduled/document ed intervention 1 goal intervention scheduled/document ed in this visit [facility] PROVIDE BATH Disciplines: Radar Mechanic 04/28/2024 Active - 1 problem intervention scheduled/document ed in this visit [facility] CARE PLAN Disciplines: Radar Mechanic [facility] Care Plan 04/28/2024 Active - 7 problem interventions scheduled/document ed in this visit [facility] CARE PLAN Disciplines: Radar Mechanic [facility] Care Plan 05/13/2024 Active - 1 [...] condition, complaints and safety concerns to the Supervisor Engine Repair. Problem:[facility] SERVICES Goal:[facility] Care Plan Completed Evaluated [...] declines. Problem:[facility] CARE PLAN Completed Communicate with Granite Cutter Apprentice Description: Communicate with offbearer as needed. Problem:[facility] CARE PLAN Completed Assist With Shaving Description: Shave patient unless patient/caregiver declines. Problem:[facility] CARE PLAN Completed documented in this encounter Care Teams Scarf Gluer Relationship Specialty Start Date End Date Provider, None [place] PCP - General 04/27/24 Mustapha Cárdenas MD [address] [place] [address] PCP - Hospice Attending Provider 04/28/24 07/18/24 documented as of this encounter
--- OUTSIDE RECORDS SUMMARY | 2024-08-13 05:15 | XMS_ITS | Encounter Summary ---
Author Organization [facility] Address [address] [place] [address] Phone Care Team Providers Care Motor Polarizer Name Role Phone Provider, None Primary Care Provider Mustapha Hall MD Unavailable [phone] Reason for Visit * Auth/Cert (Routine) Specialty Diagnoses / Procedures Referred By Samira yu Referred To Contact Referral ID Status Reason Start Date Expiration Date Visits Re quested Visits Authorized [id number] 1 1 Encounter Details Date Type Department Care Team (Latest Contact Info) Description 07/15/2024 1:00 PM SUPERVISOR MOLD CLEANING AND STORAGE [facility] [address] [place] [address] Earl Roblero CNA [place] [facility] - [facility] VIS[facility] Social History Tobacco Use Types Packs/Day Years Used Date Smoking Tobacco: Never Assessed Sex and Gender Information Value Date Recorded Sex Assigned at Not on file Legal Sex Male 2:48 AM SUPERVISOR MOLD CLEANING AND STORAGE Gender Identity Not on file Sexual Orientation Not on file documented as of this encounter Last Filed Vital Signs Vital Sign Reading Time Taken Comments Blood Pressure 122/86 07/15/2024 2:00 PM SUPERVISOR MOLD CLEANING AND STORAGE Pulse 90 07/15/2024 2:00 PM SUPERVISOR MOLD CLEANING AND STORAGE Temperature 36.6 ??C (97.8 ??F) 07/15/2024 2:00 PM CS T Respiratory Rate 18 07/15/2024 2:00 PM SUPERVISOR MOLD CLEANING AND STORAGE Oxygen Saturation - - Inhaled Oxygen Concentration - - Weight - - Height - - Body Mass Index - - documented in this encounter Plan of Treatment Not on file documented as of this encounter Visit Diagnoses Not on filedocumented in this encounter Hospice Visit - Care Plan Visit Details Visit Type -[facility] - HOSPICE Vi sit Discipline -Soc Analyst Problems Problem Description Start Date Status Goals Interve ntions [facility] SERVICES Disciplines: Soc Analyst 04/28/2024 Active 1 goal linked to scheduled/document ed intervention 1 goal intervention scheduled/document ed in this visit [facility] PROVIDE BATH Disciplines: Soc Analyst 04/28/2024 Active - 1 problem intervention scheduled/document ed in this visit [facility] CARE PLAN Disciplines: Soc Analyst [facility] Care Plan 04/28/2024 Active - 7 problem interventions scheduled/document ed in this visit [facility] CARE PLAN Disciplines: Soc Analyst [facility] Care Plan 05/13/2024 Active - 1 [...] condition, complaints and safety concerns to the Evaluation Advisor. Problem:[facility] SERVICES Goal:[facility] Care Plan Completed Evaluated [...] declines. Problem:[facility] CARE PLAN Completed Communicate with Salon Sales Consultant Description: Communicate with primary care provider as needed. Problem:[facility] CARE PLAN Completed Assist With Shaving Description: Shave patient unless patient/caregiver declines. Problem:[facility] CARE PLAN Completed documented in this encounter Care Teams Motor Polarizer Relationship Specialty Start Date End Date Provider, None [place] PCP - General 04/27/24 Mustapha Cárdenas MD [address] [place] [address] PCP - Hospice Attending Provider 04/28/24 07/18/24 documented as of this encounter
--- OUTSIDE RECORDS SUMMARY | 2024-08-13 05:15 | XMS_ITS | Encounter Summary ---
Author Organization [facility] Care Team Providers Care Service Delivery Director Name Role Phone Provider, None Primary Care Provider Mustapha Hall MD Unavailable Encounter Details Date Type Department Care Team (Latest Contact Info) Description 06/11/2024 Travel Social History Tobacco Use Types Packs/Day Years Used Date Smoking Tobacco: Never Assessed Sex and Gender Information Value Date Recorded Sex Assigned at Not on file Legal Sex Male 2:48 AM PLASTIC SHEETS SUPERVISOR Gender Identity Not on file Sexual Orientation Not on file documented as of this encounter Plan of Treatment Not on file documented as of this encounter Visit Diagnoses Not on filedocumented in this encounter Care Teams Service Delivery Director Relationship Specialty Start Date End Date Provider, None [place] PCP - General 04/27/24 Musatpha Cárdenas MD [address] [place] [address] PCP - Hospice Attending Provider 04/28/24 07/18/24 documented as of this encounter
--- OUTSIDE RECORDS SUMMARY | 2024-08-13 05:15 | XMS_ITS | Encounter Summary ---
Author Organization [facility] Address [address] [place] [address] Phone Care Team Providers Care Layer Out Plate Glass Name Role Phone Provider, None Primary Care Provider Mustapha Hall MD Unavailable [phone] Reason for Visit * Auth/Cert (Routine) Specialty Diagnoses / Procedures Referred By Samira t Referred To Contact Referral ID Status Reason Start Date Expiration Date Visits Re quested Visits Authorized [id number] 1 1 Encounter Details Date Type Department Care Team (Latest Contact Info) Description 06/17/2024 10:00 AM DIGITAL CONTENT COORDINATOR [facility] [address] [place] [address] Homa Bernabe RN [place] SN - HOSPICE HOME VISIT Social History Tobacco Use Types Packs/Day Years Used Date Smoking Tobacco: Never Assessed Sex and Gender Information Value Date Recorded Sex Assigned at Not on file Legal Sex Male 2:48 AM DIGITAL CONTENT COORDINATOR Gender Identity Not on file Sexual Orientation Not on file documented as of this encounter Last Filed Vital Signs Vital Sign Reading Time Taken Comments Blood Pressure 128/70 06/17/2024 10:29 AM DIGITAL CONTENT COORDINATOR Pulse 94 06/17/2024 10:29 AM DIGITAL CONTENT COORDINATOR Temperature 36.6 ??C (97.9 ??F) 06/17/2024 10:[address] Respiratory Rate 16 06/17/2024 10:29 AM DIGITAL CONTENT COORDINATOR Oxygen Saturation 98% 06/17/2024 10:29 AM DIGITAL CONTENT COORDINATOR Inhaled Oxygen Concentration - - Weight - - Height - - Body Mass Index - - documented in this encounter Plan of Treatment Not on file documented as of this encounter Visit Diagnoses Not on filedocumented in this encounter Care Teams Layer Out Plate Glass Relationship Specialty Start Date End Date Provider, None [place] PCP - General 04/27/24 Mustapha Cárdenas MD [address] [place] [address] PCP - Hospice Attending Provider 04/28/24 07/18/24 documented as of this encounter
--- OUTSIDE RECORDS SUMMARY | 2024-08-13 05:15 | XMS_ITS | Encounter Summary ---
Author Organization [facility] Care Team Providers Care Zoology Teacher Name Role Phone Provider, None Primary Care Provider Mustapha Hall MD Unavailable Encounter Details Date Type Department Care Team (Latest Contact Info) Description 07/04/2024 Travel Social History Tobacco Use Types Packs/Day Years Used Date Smoking Tobacco: Never Assessed Sex and Gender Information Value Date Recorded Sex Assigned at Not on file Legal Sex Male 2:48 AM LADLE POURER Gender Identity Not on file Sexual Orientation Not on file documented as of this encounter Plan of Treatment Not on file documented as of this encounter Visit Diagnoses Not on filedocumented in this encounter Care Teams Zoology Teacher Relationship Specialty Start Date End Date Provider, None [place] PCP - General 04/27/24 Mustapha Cárdenas MD [address] [place] [address] PCP - Hospice Attending Provider 04/28/24 07/18/24 documented as of this encounter
--- OUTSIDE RECORDS SUMMARY | 2024-08-13 05:15 | XMS_ITS | Encounter Summary ---
Author Organization [facility] Address [address] [place] [address] Phone Care Team Providers Care Vp Director Of Creative Strategy Name Role Phone Provider, None Primary Care Provider Mustapha Hall MD Unavailable Reason for Visit * Auth/Cert (Routine) Specialty Diagnoses / Procedures Referred By Samira yu Referred To Contact Referral ID Status Reason Start Date Expiration Date Visits Re quested Visits Authorized [id number] 1 1 Encounter Details Date Type Department Care Team (Latest Contact Info) Description 06/28/2024 11:00 AM LIBRARY MEDIA SPECIALIST [facility] [address] [place] [address] Homa Bernabe RN [place] - HOSPICE HOME VISIT Social History Tobacco Use Types Packs/Day Years Used Date Smoking Tobacco: Never Assessed Sex and Gender Information Value Date Recorded Sex Assigned at Not on file Legal Sex Male 2:48 AM LIBRARY MEDIA SPECIALIST Gender Identity Not on file Sexual Orientation Not on file documented as of this encounter Last Filed Vital Signs Vital Sign Reading Time Taken Comments Blood Pressure 129/93 06/28/2024 11:12 AM LIBRARY MEDIA SPECIALIST Pulse 98 06/28/2024 11:12 AM LIBRARY MEDIA SPECIALIST Temperature 36.4 ??C (97.5 ??F) 06/28/2024 11:[address] Respiratory Rate 16 06/28/2024 11:12 AM LIBRARY MEDIA SPECIALIST Oxygen Saturation - - Inhaled Oxygen Concentration - - Weight - - Height - - Body Mass Index - - documented in this encounter Plan of Treatment Not on file documented as of this encounter Visit Diagnoses Not on filedocumented in this encounter Care Teams Vp Director Of Creative Strategy Relationship Specialty Start Date End Date Provider, None [place] PCP - General 04/27/24 Mustapha Cárdenas MD [address] [place] [address] PCP - Hospice Attending Provider 04/28/24 07/18/24 documented as of this encounter
--- OUTSIDE RECORDS SUMMARY | 2024-08-13 05:15 | XMS_ITS | Encounter Summary ---
Author Organization [facility] Care Team Providers Care Control Panel Tester Name Role Phone Provider, None Primary Care Provider Mustapha Hall MD Unavailable Encounter Details Date Type Department Care Team (Latest Contact Info) Description 05/30/2024 Travel Social History Tobacco Use Types Packs/Day Years Used Date Smoking Tobacco: Never Assessed Sex and Gender Information Value Date Recorded Sex Assigned at Not on file Legal Sex Male 2:48 AM ACTIVATED SLUDGE ATTENDANT Gender Identity Not on file Sexual Orientation Not on file documented as of this encounter Plan of Treatment Not on file documented as of this encounter Visit Diagnoses Not on filedocumented in this encounter Care Teams Control Panel Tester Relationship Specialty Start Date End Date Provider, None [place] PCP - General 04/27/24 Mustapha Cárdenas MD [address] [place] [address] PCP - Hospice Attending Provider 04/28/24 07/18/24 documented as of this encounter
--- OUTSIDE RECORDS SUMMARY | 2024-08-13 05:15 | XMS_ITS | Encounter Summary ---
Author Organization [facility] Address [address] [place] [address] Phone Care Team Providers Care Boring Machine Operator Production Name Role Phone Provider, None Primary Care Provider Mustapha Hall MD Unavailable [phone] Reason for Visit * Auth/Cert (Routine) Specialty Diagnoses / Procedures Referred By Samira yu Referred To Contact Referral ID Status Reason Start Date Expiration Date Visits Re quested Visits Authorized [id number] 1 1 Encounter Details Date Type Department Care Team (Latest Contact Info) Description 07/01/2024 1:00 PM COMPUTER FORENSICS EXAMINER [facility] [address] [place] [address] Earl Roblero CNA [place] [facility] - [facility]ICE VIS[facility] Social History Tobacco Use Types Packs/Day Years Used Date Smoking Tobacco: Never Assessed Sex and Gender Information Value Date Recorded Sex Assigned at Not on file Legal Sex Male 2:48 AM COMPUTER FORENSICS EXAMINER Gender Identity Not on file Sexual Orientation Not on file documented as of this encounter Last Filed Vital Signs Vital Sign Reading Time Taken Comments Blood Pressure 97/71 07/01/2024 1:50 PM COMPUTER FORENSICS EXAMINER Pulse 100 07/01/2024 1:50 PM COMPUTER FORENSICS EXAMINER Temperature - - Respiratory Rate 18 07/01/2024 1:50 PM COMPUTER FORENSICS EXAMINER Oxygen Saturation 97% 07/01/2024 1:50 PM COMPUTER FORENSICS EXAMINER Inhaled Oxygen Concentration - - Weight - - Height - - Body Mass Index - - documented in this encounter Plan of Treatment Not on file documented as of this encounter Visit Diagnoses Not on filedocumented in this encounter Hospice Visit - Care Plan Visit Details Visit Type -[facility] - HOSPICE Vi sit Discipline -Millinery Worker Problems Problem Description Start Date Status Goals Interve ntions [facility] SERVICES Disciplines: Millinery Worker 04/28/2024 Active 1 goal linked to scheduled/document ed intervention 1 goal intervention scheduled/document ed in this visit [facility] PROVIDE BATH Disciplines: Millinery Worker 04/28/2024 Active - 1 problem intervention scheduled/document ed in this visit [facility] CARE PLAN Disciplines: Millinery Worker [facility] Care Plan 04/28/2024 Active - 7 problem interventions scheduled/document ed in this visit [facility] CARE PLAN Disciplines: Millinery Worker [facility] Care Plan 05/13/2024 Active - 1 [...] condition, complaints and safety concerns to the Oleomargarine Maker. Problem:[facility] SERVICES Goal:[facility] Care Plan Completed Evaluated [...] declines. Problem:[facility] CARE PLAN Completed Communicate with Security Support Analyst Description: Communicate with tool engineer as needed. Problem:[facility] CARE PLAN Completed Assist With Shaving Description: Shave patient unless patient/caregiver declines. Problem:[facility] CARE PLAN Completed documented in this encounter Care Teams Boring Machine Operator Production Relationship Specialty Start Date End Date Provider, None [place] PCP - General 04/27/24 Mustapha Cárdenas MD [address] [place] [address] PCP - Hospice Attending Provider 04/28/24 07/18/24 documented as of this encounter
--- OUTSIDE RECORDS SUMMARY | 2024-08-13 05:15 | XMS_ITS | Encounter Summary ---
Author Organization [facility] Address [address] [place] [address] Phone Care Team Providers Care Rim Fire Priming Operator Name Role Phone Provider, None Primary Care Provider Mustapha Hall MD Unavailable Reason for Visit * Auth/Cert (Routine) Specialty Diagnoses / Procedures Referred By Samira yu Referred To Contact Referral ID Status Reason Start Date Expiration Date Visits Re quested Visits Authorized [id number] 1 1 Encounter Details Date Type Department Care Team (Latest Contact Info) Description 06/05/2024 1:00 PM CDT [facility] [address] [place] [address] Earl Roblero CNA [place] [facility] - [facility] VISIT Social History Tobacco Use Types Packs/Day Years Used Date Smoking Tobacco: Never Assessed Sex and Gender Information Value Date Recorded Sex Assigned at Not on file Legal Sex Male 2:48 AM MATERIAL RECLAIMER Gender Identity Not on file Sexual Orientation [...] Type -[facility] - HOSPICE Vi sit Discipline -Chief Unit Forester Problems Problem Description Start Date Status Goals Interve ntions [facility] SERVICES Disciplines: Chief Unit Forester 04/28/2024 Active 1 goal linked to scheduled/document ed intervention 1 goal intervention scheduled/document ed in this visit [facility] PROVIDE BATH Disciplines: Chief Unit Forester 04/28/2024 Active - 1 problem intervention scheduled/document ed in this visit [facility] CARE PLAN Disciplines: Chief Unit Forester [facility] Care Plan 04/28/2024 Active - 7 problem interventions scheduled/document ed in this visit [facility] CARE PLAN Disciplines: Chief Unit Forester [facility] Care Plan 05/13/2024 Active - 1 [...] condition, complaints and safety concerns to the Metal Ceiling Hanger. Problem:[facility] SERVICES Goal:[facility] Care Plan Completed Evaluated [...] declines. Problem:[facility] CARE PLAN Completed Communicate with Program Evaluation Consultant Description: Communicate with assistant manager as needed. Problem:[facility] CARE PLAN Completed Assist With Shaving Description: Shave patient unless patient/caregiver declines. Problem:[facility] CARE PLAN Completed documented in this encounter Care Teams Rim Fire Priming Operator Relationship Specialty Start Date End Date Provider, None [place] PCP - General 04/27/24 Mustapha Cárdenas MD [address] [place] [address] PCP - Hospice Attending Provider 04/28/24 07/18/24 documented as of this encounter
--- OUTSIDE RECORDS SUMMARY | 2024-08-13 05:15 | XMS_ITS | Encounter Summary ---
Author Organization [facility] Address [address] [place] [address] Phone Care Team Providers Care Mission Support Specialist Name Role Phone Provider, None Primary Care Provider Mustapha Hall MD Unavailable [phone] Reason for Visit * Auth/Cert (Routine) Specialty Diagnoses / Procedures Referred By Samira t Referred To Contact Referral ID Status Reason Start Date Expiration Date Visits Re quested Visits Authorized [id number] 1 1 Encounter Details Date Type Department Care Team (Latest Contact Info) Description 07/09/2024 1:00 PM HEALTHCARE CONSULTING MANAGER [facility] [address] [place] [address] Homa Bernabe RN [place] SN - HOSPICE HOME VISIT Social History Tobacco Use Types Packs/Day Years Used Date Smoking Tobacco: Never Assessed Sex and Gender Information Value Date Recorded Sex Assigned at Not on file Legal Sex Male 2:48 AM HEALTHCARE CONSULTING MANAGER Gender Identity Not on file Sexual Orientation Not on file documented as of this encounter Last Filed Vital Signs Vital Sign Reading Time Taken Comments Blood Pressure - - Pulse 87 07/09/2024 12:41 PM HEALTHCARE CONSULTING MANAGER Temperature 36.3 ??C (97.3 ??F) 07/09/2024 12:[address] Respiratory Rate 16 07/09/2024 12:41 PM HEALTHCARE CONSULTING MANAGER Oxygen Saturation 92% 07/09/2024 12:41 PM HEALTHCARE CONSULTING MANAGER Inhaled Oxygen Concentration - - Weight - - Height - - Body Mass Index - - documented in this encounter Plan of Treatment Not on file documented as of this encounter Visit Diagnoses Not on filedocumented in this encounter Care Teams Mission Support Specialist Relationship Specialty Start Date End Date Provider, None [place] PCP - General 04/27/24 Mustapha Cárdenas MD [address] [place] [address] PCP - Hospice Attending Provider 04/28/24 07/18/24 documented as of this encounter
--- OUTSIDE RECORDS SUMMARY | 2024-08-13 05:15 | XMS_ITS | Encounter Summary ---
Author Organization [facility] Care Team Providers Care Insulation Extruder Operator Name Role Phone Provider, None Primary Care Provider Mustapha Hall MD Unavailable [phone] Encounter Details Date Type Department Care Team (Latest Contact Info) Description 06/28/2024 Travel Social History Tobacco Use Types Packs/Day Years Used Date Smoking Tobacco: Never Assessed Sex and Gender Information Value Date Recorded Sex Assigned at Not on file Legal Sex Male 2:48 AM PACKAGING ASSEMBLER Gender Identity Not on file Sexual Orientation Not on file documented as of this encounter Plan of Treatment Not on file documented as of this encounter Visit Diagnoses Not on filedocumented in this encounter Care Teams Insulation Extruder Operator Relationship Specialty Start Date End Date Provider, None [place] PCP - General 04/27/24 Mustapha Cárdenas MD [address] [place] [address] PCP - Hospice Attending Provider 04/28/24 07/18/24 documented as of this encounter
--- OUTSIDE RECORDS SUMMARY | 2024-08-13 05:15 | XMS_ITS | Encounter Summary ---
Author Organization [facility] Address [address] [facility] 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
--- OUTSIDE RECORDS SUMMARY | 2024-08-13 05:15 | XMS_ITS | Data Portability ---
Author Organization [facility] F[place] Ibrahim Address [address] [facility] [place] [address] Care Team Providers Care Electrical Appliance Preparer Name Role Phone GAGE PRINCE Primary Care Provider Assessment Encounter Date Assessment Date Assessment LastModified by Organization Details LastModified Time 11/29/2023 11/29/2023 Seems little anxious in the office today we will obtain blood work we will give some lorazepam to use in addition to his donepezil and his Seroquel at night he also takes Lexapro 20 mg daily blood work ordered follow-up in 6 months [email or web address] Not available 12/01/2023 16:24:26 06/05/2024 06/05/2024 flu shot. Healthy lifestyle care instructions we will continue with his multiple medications for dementia and anxiety follow up will be in 4 months [email or web address] Not available 06/14/2024 20:47:42 Plan of Treatment Reminders Order Date Submit Date Provider Last Modified By Organization Details Last Modified Time Details Appointments ANY 15 2024 10:30A M Gage Prince MD Not available Not available Not available Lab PSA, total, serum or plasma 2023 024 [facility], [address], [place], [address], 12/13/2023 12:37:28 lipid panel, serum 2023 024 [facility], [address] [facility] [address], [place], [address], 12/13/2023 12:37:26 CMP, serum or plasma 2023 024 [facility], [address], [place], [address], 12/13/2023 12:37:27 CBC w/ auto diff 2023 024 [facility], [address], [place], [address], 12/13/2023 12:37:28 Referral None recorded . Procedures None recorded . Surgeries None recorded . Imaging None recorded . Medication Orders None recorded . Patient TargetsNo targets recorded. Patient Instructions Encounter Date Encounter Id Patient Instructions Last Modified By Organization Details Last Modified Time 06/05/2024 [id number] A healthy lifestyle: care instructions [email or web address] Not available 06/05/2024 17:30:37 Reason for Referral None Reported. Results Created Date Observation Date Name Description Value Unit Range Abnormal Flag Note LastModifiedBy Organization Detail LastModifiedTime 12/12/1912/13/2023 LIPID PANEL cholesterol, total 218 mg/dL 100-19 9 above high normal Not Available [facility] ([facility]) [address] [place], [address], 12/13/2023 12:37:26 12/12/1912/13/2023 LIPID PANEL triglyceride s 90 mg/dL 0-149 Not Available [facility] ([facility]) [address] [place], [address], 12/13/2023 12:37:26 12/12/1912/13/2023 LIPID PANEL HDL cholesterol 47 mg/dL >39 Not Available [facility] ([facility]) [address] [place], [address], 12/13/2023 12:37:26 12/12/1912/13/2023 LIPID PANEL VLDL cholesterol yecenia 16 mg/dL 5-40 Not Available [facility] ([facility]) [address] [facility], [place], [address], 12/13/2023 12:37:26 12/12/19 24 12/13/2023 LIPID PANEL LDL chol calc ([facility]) 155 mg/dL 0-99 above high normal Not Available [facility] ([facility]) [address] [place], [address], 12/13/2023 12:37:26 12/12/19 24 12/13/2023 COMP. METAB OLIC PANEL (14) glucose 112 mg/dL 70-99 above high normal Not Available [facility] ([facility]) [address] [place], [address], 12/13/2023 12:37:27 12/12/19 24 12/13/2023 COMP. METAB OLIC PANEL (14) BUN 16 mg/dL 8-27 Not Available [facility] ([facility]) [address] [place], [address], 12/13/2023 12:37:27 12/12/19 24 12/13/2023 COMP. METAB OLIC PANEL (14) creatinine 0.93 mg/dL 0.76-1 .27 Not Available [facility] ([facility]) [address] [place], [address], 12/13/2023 12:37:27 12/12/19 24 12/13/2023 COMP. METAB OLIC PANEL (14) eGFR 91 mL/mi n/1.7 3 >59 Not Available [facility] ([facility]) [address] [place], [address], 12/13/2023 12:37:27 12/12/19 24 12/13/2023 COMP. METAB OLIC PANEL (14) BUN/creatini ne ratio 17 10-24 Not Available [facility] ([facility]) [address] [place], [address], 12/13/2023 12:37:27 12/12/19 24 12/13/2023 COMP. METAB OLIC PANEL (14) sodium 136 mmol/ L 134-14 4 Not Available [facility] ([facility]) [address] [facility] [place] [place], [address], 12/13/2023 12:37:27 12/12/19 24 12/13/2023 COMP. METAB OLIC PANEL (14) potassium 4.1 mmol/ L 3.5-5. 2 Not Available [facility] ([facility]) [address] [facility] [place], [address], 12/13/2023 12:37:27 12/12/19 24 12/13/2023 COMP. METAB OLIC PANEL (14) chloride 103 mmol/ L 96-106 Not Available [facility] ([facility]) [address] [facility] [place], [address], 12/13/2023 12:37:27 12/12/19 24 12/13/2023 COMP. METAB OLIC PANEL (14) carbon dioxide, total 18 mmol/ L 20-29 below low normal Not Available [facility] ([facility]) [address] [facility] [place], [address], 12/13/2023 12:37:27 12/12/19 24 12/13/2023 COMP. METAB OLIC PANEL (14) calcium 9.0 mg/dL 8.6-10 .2 Not Available [facility] ([facility]) [address] [facility] [place], [address], 12/13/2023 12:37:27 12/12/19 24 12/13/2023 COMP. METAB OLIC PANEL (14) protein, total 6.8 g/dL 6.0-8. 5 Not Available [facility] ([facility]) [address] [facility] [place], [address], 12/13/2023 12:37:27 12/12/19 24 12/13/2023 COMP. METAB OLIC PANEL (14) albumin 4.1 g/dL 3.9-4. 9 Not Available [facility] ([facility]) [address] [place], [address], 12/13/2023 12:37:27 12/12/19 24 12/13/2023 COMP. METAB OLIC PANEL (14) globulin, total 2.7 g/dL 1.5-4. 5 Not Available [facility] ([facility] [address] [place], [address], 12/13/2023 12:37:27 12/12/19 24 12/13/2023 COMP. METAB OLIC PANEL (14) A/G ratio 1.5 1.2-2. 2 Not Available [facility] ([facility]) [address] [place], [address], 12/13/2023 12:37:27 12/12/19 24 12/13/2023 COMP. METAB OLIC PANEL (14) bilirubin, total 0.6 mg/dL 0.0-1. 2 Not Available [facility] ([facility] [address] [place], [address], 12/13/2023 12:37:27 12/12/19 24 12/13/2023 COMP. METAB OLIC PANEL (14) alkaline phosphatase 73 IU/L 44-121 Not Available [facility] ([facility] [address] [place], [address], 12/13/2023 12:37:27 12/12/19 24 12/13/2023 COMP. METAB OLIC PANEL (14) AST (SGOT) 17 IU/L 0-40 Not Available [facility] ([facility] [address] [place], [address], 12/13/2023 12:37:27 12/12/19 24 12/13/2023 COMP. METAB OLIC PANEL (14) ALT (SGPT) 13 IU/L 0-44 Not Available [facility] ([facility] [address] [place], [address], 12/13/2023 12:37:27 12/12/19 24 12/12/2023 CBC WITH DIFFE RENTI AL/PL ATELE T WBC 6.2 x10e3 /uL 3.4-10 .8 Not Available [facility] ([facility]) [address] [facility], [place], [address], 12/13/2023 12:37:28 12/12/19 24 12/12/2023 CBC WITH DIFFE RENTI AL/PL ATELE T RBC 4.54 x10e6 /uL 4.14-5 .80 Not Available [facility] ([facility]) [address] [facility], [place], [address], 12/13/2023 12:37:28 12/12/19 24 12/12/2023 CBC WITH DIFFE RENTI AL/PL ATELE T hemoglobin 14.3 g/dL 13.0-1 7.7 Not Available [facility] ([facility]) [address] [facility], [place], [address], 12/13/2023 12:37:28 12/12/19 24 12/12/2023 CBC WITH DIFFE RENTI AL/PL ATELE T hematocrit 41.6 % 37.5-5 1.0 Not Available [facility] ([facility]) [address] [facility], [place], [address], 12/13/2023 12:37:28 12/12/19 24 12/12/2023 CBC WITH DIFFE RENTI AL/PL ATELE T MCV 92 fL 79-97 Not Available [facility] ([facility] [address] [place], [address], 12/13/2023 12:37:28 12/12/19 24 12/12/2023 CBC WITH DIFFE RENTI AL/PL ATELE T MCH 31.5 pg 26.6-3 3.0 Not Available [facility] ([facility] [address] [place], [address], 12/13/2023 12:37:28 12/12/19 24 12/12/2023 CBC WITH DIFFE RENTI AL/PL ATELE T MCHC 34.4 g/dL 31.5-3 5.7 Not Available [facility] ([facility] [address] [facility], [place], [address], 12/13/2023 12:37:28 12/12/19 24 12/12/2023 CBC WITH DIFFE RENTI AL/PL ATELE T RDW 12.2 % 11.6-1 5.4 Not Available [facility] ([facility]) [address] [facility], [place], [address], 12/13/2023 12:37:28 12/12/19 24 12/12/2023 CBC WITH DIFFE RENTI AL/PL ATELE T platelets 220 x10e3 /uL 150-45 0 Not Available [facility] ([facility]) [address] [facility], [place], [address], 12/13/2023 12:37:28 12/12/19 24 12/12/2023 CBC WITH DIFFE RENTI AL/PL ATELE T neutrophils 64 % notest ab. Not Available [facility] ([facility]) [address] [facility], [place], [address], 12/13/2023 12:37:28 12/12/19 24 12/12/2023 CBC WITH DIFFE RENTI AL/PL ATELE T lymphs 24 % notest ab. Not Available [facility] ([facility]) [address] [facility], [place], [address], 12/13/2023 12:37:28 12/12/19 24 12/12/2023 CBC WITH DIFFE RENTI AL/PL ATELE T monocytes 8 % notest ab. Not Available [facility] ([facility] [address] [place], [address], 12/13/2023 12:37:28 12/12/19 24 12/12/2023 CBC WITH DIFFE RENTI AL/PL ATELE T eos 2 % notest ab. Not Available [facility] ([facility]) [address] [place], [address], 12/13/2023 12:37:28 12/12/19 24 12/12/2023 CBC WITH DIFFE RENTI AL/PL ATELE T basos 1 % notest ab. Not Available [facility] ([facility] [address] [place], [address], 12/13/2023 12:37:28 12/12/19 24 12/12/2023 CBC WITH DIFFE RENTI AL/PL ATELE T neutrophils (absolute) 3.9 x10e3 /uL 1.4-7. 0 Not Available [facility] ([facility]) [address] [place], [address], 12/13/2023 12:37:28 12/12/19 24 12/12/2023 CBC WITH DIFFE RENTI AL/PL ATELE T lymphs (absolute) 1.5 x10e3 /uL 0.7-3. 1 Not Available [facility] ([facility] [address] [place], [address], 12/13/2023 12:37:28 12/12/19 24 12/12/2023 CBC WITH DIFFE RENTI AL/PL ATELE T monocytes(ab solute) 0.5 x10e3 /uL 0.1-0. 9 Not Available [facility] ([facility]) [address] [place], [address], 12/13/2023 12:37:28 12/12/19 24 12/12/2023 CBC WITH DIFFE RENTI AL/PL ATELE T eos (absolute) 0.2 x10e3 /uL 0.0-0. 4 Not Available [facility] ([facility] [address] [place], [address], 12/13/2023 12:37:28 12/12/19 24 12/12/2023 CBC WITH DIFFE RENTI AL/PL ATELE T baso (absolute) 0.1 x10e3 /uL 0.0-0. 2 Not Available [facility] ([facility]) [address] [facility], [place], [address], 12/13/2023 12:37:28 12/12/19 24 12/12/2023 CBC WITH DIFFE RENTI AL/PL ATELE T immature granulocytes 1 % notest ab. Not Available [facility] ([facility] [address] [facility], [place], [address], 12/13/2023 12:37:28 12/12/19 24 12/12/2023 CBC WITH DIFFE RENTI AL/PL ATELE T immature grans (abs) 0.0 x10e3 /uL 0.0-0. 1 Not Available [facility] ([facility]) [address] [facility], [place], [address], 12/13/2023 12:37:28 12/12/19 24 12/13/2023 PROST ATE-S PECIF IC AG prostate specific Ag 0.4 NG/mL 0.0-4. 0 Fifi ECLIA metho dolog y. Accor ding to the Ameri can Urolo gical Assoc iatio n, Serum PSA shoul d decre ase and remai n at undet ectab le level s after radic al prost atect keysha. The AUA defin es bioch emica l recur rence as an initi al PSA value 0.2 ng/mL or great er follo wed by a subse quent confi rmato ry PSA value 0.2 ng/mL or great er. Value s obtai justine with diffe rent assay metho ds or kits canno t be used inter harding eably . Resul ts canno t be inter prete d as absol tati evide nce of the prese nce or absen ce of [place] cavazos disea se. Not Available [facility] ([facility]) [address] [facility], [place], [address], 12/13/2023 12:37:28 Result Notes None recorded. Problems Name Problem SNOMED Code Status Onset Date Resolution Date Notes Provider Name and Address Organization Details Recorded Time Anxiety 85332605 Active 024 Roxana Cardenas MA [facility], [place] - [place] 02/21/2024 12:23:32 Dementia 35523588 Active 024 G[place] MD Attn: Accounting ,[address] [facility], [place], [address] , [facility] - [place] 06/14/2024 20:46:19 Problem Notes None recorded. Medical [...] Not Available Vitals Date Recorded Body weight Heart rate Body temperature Oxygen saturation Oxygen saturation in Arterial blood by Pulse oximetry Systolic blood pressure Diastolic blood pressure Provider Name and Address Organization Details Last Updated DateTime 4 29461.9 8 g 86 /min 98.2 [degF] 98 % 98 % 118 mm[Hg] 72 mm[Hg] Merline Azar MA [facility] 4 15:50:13 Date Recorded Body weight Body mass index (BMI) Body height Heart rate Oxygen saturation Oxygen saturation in Arterial blood by Pulse oximetry Systolic blood pressure Diastolic blood pressure Provider Name and Address Organization Details Last Updated DateTime 4 97622.1 1 g 27.3 kg/m2 167.64 cm 97 /min 98 % 98 % 110 mm[Hg] 64 mm[Hg] Sharmila Worthington MA [facility] 4 10:20:05 Social History Question Answer Notes LastModified by Organizat ion Details LastModified Time Tobacco Smoking Status Former [facility] 11/29/2023 15:33:47 Do You Have An Advance [...] Anxious, Or Unable To Sleep At Night)? [id number] Information not available 11/29/2023 Do You Use [...] Atrial Fibrillation N High Blood Pressure N Kidney or Bladder Problems N Thyroid Problems N GI Problems N Depression N COPD N Blood Clots N Skin Problems N Anemia N Heart Attack (ND) N Diabetes N Anxiety Disorder Y Muscle, Joint, or Bone Problems N Seizures/Epilepsy N Acid Reflux (GERD) N Cancer N Stroke N Asthma N Allergies N High Cholesterol N Hepatitis N Liver Disease N Headaches N Osteoporosis N Heart Failure N Immunizations Vaccine Type Date Status Note Provider Nam e and Address Organization Details Recorded Time Influenza, high-dose, trivalent, PF 06/05/2024 completed Gage Prince MD Attn: Accounting,[address] [place], [address], [facility] - [facility] 06/14/2024 20:45:51 Past Encounters Encounter ID Performer Location Encounter Start Date Encounter Closed Date Diagnosis/Indication Diagnosis SNOMED-CT Code Diagnosis ICD10 Code [id number] Gage Prince MD [facility] [place] [address] [place] [address] 11/29/2023 15:14:09 11/29/2023 16:24:04 Anxiety 67215518 F41.9 Screening for cardiovascular system disease 784199149 Z13.6 Long-term drug therapy 964569007 Z79.899 Screening for malignant neoplasm of prostate 814072326 Z12.5 [id number] Gage Prince MD [facility] [place] [address] [place] [address] 06/05/2024 10:13:14 06/05/2024 10:57:06 Overweight 254425798 E66.3 Administra tion of influenza vaccine 13599471 Z23 Dementia 68164324 F03.90 Health Concerns Section Related Observation LastModified by Organization Detai ls LastModified Time None Recorded Concern Status LastModified by Organization Details LastModified Time None Recorded Advance Directives Directive N: Payers Encounter Date Sequence Insurance Name Policy Number Policy Schilling Covered Member ID Schilling Member ID Guarantor Name 11/29/2023 1 [place] Gage Stephenson [id number] Gage Stephenson 11/29/2023 2 [employer] (MEDICARE SUPPLEMENT) Gage Stephenson [id number] Gage Stephenson 06/05/2024 2 [employer] (MEDICARE SUPPLEMENT) Gage Stephenson [id number] Gage Stephesnon 06/05/2024 [place] - RHC - FQHC Gage Stephenson [id number] Gage Stephenson Notes Date Note Type Note Provider Name and Address Organization Details Recorded Time 11/29/2023 text/html 63-year-old brought in by he has moderate dementia that is getting worse with some agitation Gage Prince MD Attn: Accounting[address] [place], [address], [facility] 12/01/2023 16:24:42 06/05/2024 text/html he is in with hi s today he is becoming a little bit more unsettled with his dementia and more best behavioral outbursts no wandering no physical abuse.. Dyslipidemia she does try to watch what she prepares but we have liberalize the diet a little bit Gage Prince MD Attn: Accounting,[address], [place], [address], [facility] 06/14/2024 20:48:00
--- OUTSIDE RECORDS SUMMARY | 2024-08-13 05:15 | XMS_ITS | Encounter Summary ---
Author Organization [facility] Address [address] [place] [address] Phone Care Team Providers Care Automatic Lathe Setter Name Role Phone Provider, None Primary Care Provider Mustapha Hall MD Unavailable [phone] Reason for Visit * Auth/Cert (Routine) Specialty Diagnoses / Procedures Referred By Samira yu Referred To Contact Referral ID Status Reason Start Date Expiration Date Visits Re quested Visits Authorized [id number] 1 1 Encounter Details Date Type Department Care Team (Latest Contact Info) Description 06/03/2024 11:00 AM CDT Home Care Visit [facility] [address] [place] [address] Homa Bernabe RN [place] SN - HOSPICE HOME VISIT Social History Tobacco Use Types Packs/Day Years Used Date Smoking Tobacco: Never Assessed Sex and Gender Information Value Date Recorded Sex Assigned at Not on file Legal 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
--- OUTSIDE RECORDS SUMMARY | 2024-08-13 05:15 | XMS_ITS | Encounter Summary ---
Author Organization [facility] Address [address] [place] [address] Phone Care Team Providers Care Transmission Technician Name Role Phone Provider, None Primary Care Provider Mustapha Hall MD Unavailable [phone] Reason for Visit * Auth/Cert (Routine) Specialty Diagnoses / Procedures Referred By Samira yu Referred To Contact Referral ID Status Reason Start Date Expiration Date Visits Re quested Visits Authorized [id number] 1 1 Encounter Details Date Type Department Care Team (Latest Contact Info) Description 05/30/2024 11:00 AM CDT Home Care Visit [facility] [address] [place] [address] Homa Bernabe RN [place] SN - HOSPICE HOME VISIT Social History Tobacco Use Types Packs/Day Years Used Date Smoking Tobacco: Never Assessed Sex and Gender Information Value Date Recorded Sex Assigned at Not on file 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
--- OUTSIDE RECORDS SUMMARY | 2024-08-13 05:15 | XMS_ITS | Encounter Summary ---
Author Organization [facility] Address [address] [place] [address] Phone Care Team Providers Care Tile Roofer Name Role Phone Provider, None Primary Care Provider Mustapha Hall MD Unavailable [phone] Reason for Visit * Auth/Cert (Routine) Specialty Diagnoses / Procedures Referred By Samira t Referred To Contact Referral ID Status Reason Start Date Expiration Date Visits Re quested Visits Authorized [id number] 1 1 Encounter Details Date Type Department Care Team (Latest Contact Info) Description 06/24/2024 10:00 AM MINER HELPER Home Care Visit [facility] [address] [place] [address] Homa Bernabe RN [place] SN - HOSPICE HOME VISIT Social History Tobacco Use Types Packs/Day Years Used Date Smoking Tobacco: Never Assessed Sex and Gender Information Value Date Recorded Sex Assigned at Not on file Legal Sex Male 2:48 AM MINER HELPER Gender Identity Not on file Sexual Orientation Not on file documented as of this encounter Last Filed Vital Signs Vital Sign Reading Time Taken Comments Blood Pressure 133/86 06/24/2024 10:15 AM MINER HELPER Pulse 84 06/24/2024 10:15 AM MINER HELPER Temperature 37 ??C (98.6 ??F) 06/24/2024 10:15 AM MINER HELPER Respiratory Rate 16 06/24/2024 10:15 AM MINER HELPER Oxygen Saturation 100% 06/24/2024 10:15 AM MINER HELPER Inhaled Oxygen Concentration - - Weight - - Height - - Body Mass Index - - documented in this encounter Plan of Treatment Not on file documented as of this encounter Visit Diagnoses Not on filedocumented in this encounter Care Teams Tile Roofer Relationship Specialty Start Date End Date Provider, None [place] PCP - General 04/27/24 Mustapha Cárdenas MD [address] [place] [address] PCP - Hospice Attending Provider 04/28/24 07/18/24 documented as of this encounter
--- OUTSIDE RECORDS SUMMARY | 2024-08-13 05:15 | XMS_ITS | Encounter Summary ---
Author Organization [facility] Address [address] [place] [address] Phone Care Team Providers Care Aviation Electronics Technician Name Role Phone Provider, None Primary Care Provider Mustapha Hall MD Unavailable [phone] Reason for Visit * Auth/Cert (Routine) Specialty Diagnoses / Procedures Referred By Samira t Referred To Contact Referral ID Status Reason Start Date Expiration Date Visits Re quested Visits Authorized [id number] 1 1 Encounter Details Date Type Department Care Team (Latest Contact Info) Description 07/18/2024 11:00 AM TUBE BUILDING MACHINE OPERATOR [facility] [address] [place] [address] Homa Bernabe, RN [place] SN - HOSPICE DISCHARGE Social History Tobacco Use Types Packs/Day Years Used Date Smoking Tobacco: Never Assessed Sex and Gender Information Value Date Recorded Sex Assigned at Not on file Legal Sex Male 2:48 AM TUBE BUILDING MACHINE 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
--- OUTSIDE RECORDS SUMMARY | 2024-08-13 05:15 | XMS_ITS | Encounter Summary ---
Author Organization [facility] Address [address] [place] [address] Phone Care Team Providers Care Window Framer Name Role Phone Provider, None Primary Care Provider Mustapha Hall MD Unavailable Reason for Visit * Auth/Cert (Routine) Specialty Diagnoses / Procedures Referred By Samira t Referred To Contact Referral ID Status Reason Start Date Expiration Date Visits Re quested Visits Authorized [id number] 1 1 Encounter Details Date Type Department Care Team (Late st Contact Info) Description 07/11/2024 [facility] [address] [place] [address] Homa Bernabe, RN [place] CASE COMMUNICATION Social History Tobacco Use Types Packs/Day Years Used Date Smoking Tobacco: Never Assessed Sex and Gender Information Value Date Recorded Sex Assigned at Not on file Legal Sex Male 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
--- OUTSIDE RECORDS SUMMARY | 2024-08-13 05:15 | XMS_ITS | Encounter Summary ---
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
--- OUTSIDE RECORDS SUMMARY | 2024-08-13 05:15 | XMS_ITS ---
Care Plan - [facility] Created on: August 13, 2024 GAGE MACIEL : 1960 Sex: Male Author Organization [facility] Address [address] [place] [address] Phone Care Team Providers Care Kaitara Taraka Name Role Phone Unavailable Unavailable Unavailable
--- OUTSIDE RECORDS SUMMARY | 2024-08-13 05:15 | XMS_ITS | Encounter Summary ---
Author Organization [facility] Address [address] [facility] [place] [address] Phone Care Team Providers Care Home Health Care Respiratory Therapist Name Role Phone Provider, None Primary Care Provider Mustapha Hall MD Unavailable [phone] Encounter Details Date Type Department Care Team (Late st Contact Info) Description 07/09/2024 [facility] [address] [place] [id number] Mustapha Cárdenas MD [address] [place] [address] Social History Tobacco Use Types Packs/Day Years Used Date Smoking Tobacco: Never Assessed Sex and Gender Information Value Date Recorded Sex Assigned at Not on file Legal Sex Male 2:48 AM MAIN LINE STATION ENGINEER Gender Identity Not on file Sexual Orientation Not on file documented as of this encounter Plan of Treatment Not on file documented as of this encounter Procedures Procedure Name Priority Date/Time Associated Diagnosis Comments CULTURE, URINE Routine 07/09/2024 4:00 AM MAIN LINE STATION ENGINEER documented in this encounter Results * CULTURE, URINE (07/09/2024 4:00 AM MAIN LINE STATION ENGINEER) CULTURE RESULTS Mixed Growth of One or More Distal Urethral Contaminants 07/11/2024 12:38 AM MAIN LINE STATION ENGINEER [facility] Culture URINE SPECIMEN / Unknown Non-Phlebotomy Collection / Unknown 07/09/2024 4:00 AM MAIN LINE STATION ENGINEER 07/09/2024 2:39 PM MAIN LINE STATION ENGINEER us Mustapha Cárdenas MD MICROBIOLOGY - GENERAL O RDERABLES Final Result [facility] [address] [place] [address], documented in this encounter Visit Diagnoses Not on filedocumented in this encounter Care Teams Home Health Care Respiratory Therapist Relationship Specialty Start Date End Date Provider, None [place] PCP - General 04/27/24 Mustapha Cárdenas MD [address] [place] [address] PCP - Hospice Attending Provider 04/28/24 07/18/24 documented as of this encounter
--- OUTSIDE RECORDS SUMMARY | 2024-08-13 05:15 | XMS_ITS | Encounter Summary ---
Author Organization [facility] Address [address] [place] [address] Phone Care Team Providers Care User Experience Team Lead Name Role Phone Provider, None Primary Care Provider Mustapha Hall MD Unavailable [phone] Reason for Visit * Auth/Cert (Routine) Specialty Diagnoses / Procedures Referred By Samira t Referred To Contact Referral ID Status Reason Start Date Expiration Date Visits Re quested Visits Authorized [id number] 1 1 Encounter Details Date Type Department Care Team (Late st Contact Info) Description 06/24/[facility] [address] [place] [address] Homa Bernabe, RN [place] CASE COMMUNICATION Social History Tobacco Use Types Packs/Day Years Used Date Smoking Tobacco: Never Assessed Sex and Gender Information Value Date Recorded Sex Assigned at Not on file Legal Sex Male 2:48 AM FLOUR BROKER Gender Identity Not on file Sexual Orientation Not on file documented as of this encounter Plan of Treatment Not on file documented as of this encounter Visit Diagnoses Not on filedocumented in this encounter Care Teams User Experience Team Lead Relationship Specialty Start Date End Date Provider, None [place] PCP - General 04/27/24 Mustapha Cárdenas MD [address] [place] [address] PCP - Hospice Attending Provider 04/28/24 07/18/24 documented as of this encounter
--- OUTSIDE RECORDS SUMMARY | 2024-08-13 05:16 | XMS_ITS | Encounter Summary ---
Author Organization [facility] Care Team Providers Care Scrap Carrier Name Role Phone Provider, None Primary Care Provider Mustapha Hall MD Unavailable Encounter Details Date Type Department Care Team (Latest Contact Info) Description 05/13/2024 Travel Social History Tobacco Use Types Packs/Day Years Used Date Smoking Tobacco: Never Assessed Sex and Gender Information Value Date Recorded Sex Assigned at Not on file Legal Sex Male 2:48 AM SHIPPING SUPPORT Gender Identity Not on file Sexual Orientation Not on file documented as of this encounter Plan of Treatment Not on file documented as of this encounter Visit Diagnoses Not on filedocumented in this encounter Care Teams Scrap Carrier Relationship Specialty Start Date End Date Provider, None [place] PCP - General 04/27/24 Mustapha Cárdenas MD [address] [place] [address] PCP - Hospice Attending Provider 04/28/24 07/18/24 documented as of this encounter
--- OUTSIDE RECORDS SUMMARY | 2024-08-13 05:16 | XMS_ITS | Encounter Summary ---
Author Organization [facility] Address [address] [place] [address] Phone Care Team Providers Care Opticianry Teacher Name Role Phone Provider, None Primary Care Provider Mustapha Hall MD Unavailable [phone] Reason for Visit * Auth/Cert (Routine) Specialty Diagnoses / Procedures Referred By Samira t Referred To Contact Referral ID Status Reason Start Date Expiration Date Visits Re quested Visits Authorized [id number] 1 1 Encounter Details Date Type Department Care Team (Late st Contact Info) Description 05/01/2024 1:00 AM CDT [facility] [address] [place] [address] Vlad Morris [place] - HOME VISIT Social History Tobacco Use Types Packs/Day Years Used Date Smoking Tobacco: Never Assessed Sex and Gender Information Value Date Recorded Sex Assigned at Not on file Legal Sex Male 2:48 AM CREDIT ANALYSIS MANAGER Gender Identity Not on file Sexual Orientation Not on file documented as of this encounter Plan of Treatment Not on file documented as of this encounter Visit Diagnoses Not on filedocumented in this encounter Care Teams Opticianry Teacher Relationship Specialty Start Date End Date Provider, None [place] PCP - General 04/27/24 Mustapha Cárdenas MD [address] [place] [address] PCP - Hospice Attending Provider 04/28/24 07/18/24 documented as of this encounter
--- OUTSIDE RECORDS SUMMARY | 2024-08-13 05:16 | XMS_ITS | Encounter Summary ---
Author Organization [facility] Address [address] [place] [address] Phone Care Team Providers Care Slot Floorman Name Role Phone Provider, None Primary Care Provider Mustapha Hall MD Unavailable [phone] Reason for Visit * Auth/Cert (Routine) Specialty Diagnoses / Procedures Referred By Samira yu Referred To Contact Referral ID Status Reason Start Date Expiration Date Visits Re quested Visits Authorized [id number] 1 1 Encounter Details Date Type Department Care Team (Latest Contact Info) Description 05/23/2024 11:00 AM CDT 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
--- OUTSIDE RECORDS SUMMARY | 2024-08-13 05:16 | XMS_ITS | Encounter Summary ---
Author Organization [facility] Address [address] [place] [address] Phone Care Team Providers Care Bottom Brusher Name Role Phone Provider, None Primary Care Provider Mustapha Hall MD Unavailable [phone] Encounter Details Date Type Department Care Team (Late st Contact Info) Description 05/06/2024 Plan of Care [facility] [address] [place] [address] Social History Tobacco Use Types Packs/Day Years Used Date Smoking Tobacco: Never Assessed Sex and Gender Information Value Date Recorded Sex Assigned at Not on file Legal Sex Male 2:48 AM JEWELRY INTERNSHIP Gender Identity Not on file Sexual Orientation [...] None New Orders: Seroquel evening dose increased. TAIL END RIDER Plan reviewed and updated: 05/07/24 Patient and [...] on filedocumented in this encounter Care Teams Bottom Brusher Relationship Specialty Start Date End Date Provider, None [place] PCP - General 04/27/24 Mustapha Cárdenas MD [address] [place] [address] PCP - Hospice Attending Provider 04/28/24 07/18/24 documented as of this encounter
--- OUTSIDE RECORDS SUMMARY | 2024-08-13 05:16 | XMS_ITS | Encounter Summary ---
Author Organization [facility] Address [address] [place] [address] Phone Care Team Providers Care Or Scrub Tech Name Role Phone Provider, None Primary Care Provider Mustapha Hall MD Unavailable [phone] Reason for Visit * Auth/Cert (Routine) Specialty Diagnoses / Procedures Referred By Samira t Referred To Contact Referral ID Status Reason Start Date Expiration Date Visits Re quested Visits Authorized [id number] 1 1 Encounter Details Date Type Department Care Team (Late st Contact Info) Description 05/02/2024 [facility] [address] [place] [address] Homa Bernabe, RN [place] CASE COMMUNICATION Social History Tobacco Use Types Packs/Day Years Used Date Smoking Tobacco: Never Assessed Sex and Gender Information Value Date Recorded Sex Assigned at Not on file Legal 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
--- OUTSIDE RECORDS SUMMARY | 2024-08-13 05:16 | XMS_ITS | Encounter Summary ---
Author Organization [facility] Address [address] [place] [address] Phone Care Team Providers Care Location Worker Name Role Phone Provider, None Primary Care Provider Mustapha Hall MD Unavailable [phone] Reason for Visit * Auth/Cert (Routine) Specialty Diagnoses / Procedures Referred By Samira yu Referred To Contact Referral ID Status Reason Start Date Expiration Date Visits Re quested Visits Authorized [id number] 1 1 Encounter Details Date Type Department Care Team (Latest Contact Info) Description 05/15/2024 1:00 PM CDT [facility] [address] [place] [address] Earl Roblero CNA [place] [facility] - [facility]ICE VISIT Social History Tobacco Use Types Packs/Day Years Used Date Smoking Tobacco: Never Assessed Sex and Gender Information Value Date Recorded Sex Assigned at Not on file Legal Sex Male 2:48 AM TRAIN BRAKER Gender Identity Not on file Sexual Orientation [...] Type -[facility] - HOSPICE Vi sit Discipline -Spinning Machine Tender Problems Problem Description Start Date Status Goals Interve ntions [facility] SERVICES Disciplines: Spinning Machine Tender 04/28/2024 Active 1 goal linked to scheduled/document ed intervention 1 goal intervention scheduled/document ed in this visit [facility] PROVIDE BATH Disciplines: Spinning Machine Tender 04/28/2024 Active - 1 problem intervention scheduled/document ed in this visit [facility] CARE PLAN Disciplines: Spinning Machine Tender [facility] Care Plan 04/28/2024 Active - 7 problem interventions scheduled/document ed in this visit [facility] CARE PLAN Disciplines: Spinning Machine Tender [facility] Care Plan 05/13/2024 Active - 1 [...] condition, complaints and safety concerns to the Sales Route Driver. Problem:[facility] SERVICES Goal:[facility] Care Plan Completed Evaluated [...] declines. Problem:[facility] CARE PLAN Completed Communicate with Liquid Sugar Melter Description: Communicate with veterinary science teacher as needed. Problem:[facility] CARE PLAN Completed Assist With Shaving Description: Shave patient unless patient/caregiver declines. Problem:[facility] CARE PLAN Completed documented in this encounter Care Teams Location Worker Relationship Specialty Start Date End Date Provider, None [place] PCP - General 04/27/24 Mustapha Cárdenas MD [address] [place] [address] PCP - Hospice Attending Provider 04/28/24 07/18/24 documented as of this encounter
--- OUTSIDE RECORDS SUMMARY | 2024-08-13 05:16 | XMS_ITS | Encounter Summary ---
Author Organization [facility] Address [address] [facility] [place] [address] Phone Care Team Providers Care Occupational Health Specialist Name Role Phone Provider, None Primary Care Provider Mustapha Hall MD Unavailable [phone] Encounter Details Date Type Department Care Team (Late st Contact Info) Description 05/13/2024 Telephone [facility] [place] [address] [place] [address] Homa Bernabe, RN [place] Social History Tobacco Use Types Packs/Day Years Used Date Smoking Tobacco: Never Assessed Sex and Gender Information Value Date Recorded Sex Assigned at Not on file Legal Sex Male 2:48 AM IRON SETTER Gender Identity Not on file Sexual Orientation [...] care documented in this encounter Care Teams Occupational Health Specialist Relationship Specialty Start Date End Date Provider, None [place] PCP - General 04/27/24 Mustapha áCrdenas MD [address] [place] [address] PCP - Hospice Attending Provider 04/28/24 07/18/24 documented as of this encounter
--- OUTSIDE RECORDS SUMMARY | 2024-08-13 05:16 | XMS_ITS | Encounter Summary ---
Author Organization [facility] Address [address] [place] [address] Phone Care Team Providers Care Pretzel Twisting Machine Operator Name Role Phone Provider, None Primary Care Provider Mustapha Hall MD Unavailable [phone] Reason for Visit * Auth/Cert (Routine) Specialty Diagnoses / Procedures Referred By Samira yu Referred To Contact Referral ID Status Reason Start Date Expiration Date Visits Re quested Visits Authorized [id number] 1 1 Encounter Details Date Type Department Care Team (Latest Contact Info) Description 05/08/2024 1:00 PM CDT [facility] [address] [place] [address] Earl Roblero CNA [place] [facility] - [facility]PICE VISIT Social History Tobacco Use Types Packs/Day Years Used Date Smoking Tobacco: Never Assessed Sex and Gender Information Value Date Recorded Sex Assigned at Not on file Legal Sex Male 2:48 AM SMOKE AND FLAME SPECIALIST Gender Identity Not on file Sexual Orientation Not on file documented as of this encounter Plan of Treatment Not on file documented as of this encounter Visit Diagnoses Not on filedocumented in this encounter Hospice Visit - Care Plan Visit Details Visit Type -[facility] - HOSPICE Vi sit Discipline -Can Tester Problems Problem Description Start Date Status Goals Interve ntions [facility] SERVICES Disciplines: Can Tester 04/28/2024 Active 1 goal linked to scheduled/document ed intervention 1 goal intervention scheduled/document ed in this visit [facility] PROVIDE BATH Disciplines: Can Tester 04/28/2024 Active - 1 problem intervention scheduled/document ed in this visit [facility] CARE PLAN Disciplines: Can Tester [facility] Care Plan 04/28/2024 Active - 7 [...] condition, complaints and safety concerns to the J2Ee Architect. Problem:[facility] SERVICES Goal:[facility] Care Plan Completed Evaluated [...] declines. Problem:[facility] CARE PLAN Completed Communicate with Manager Of Employee Relations Description: Communicate with floor scraper as needed. Problem:[facility] CARE PLAN Completed documented in this encounter Care Teams Pretzel Twisting Machine Operator Relationship Specialty Start Date End Date Provider, None [place] PCP - General 04/27/24 Mustapha Cárdenas MD [address] [place] [address] PCP - Hospice Attending Provider 04/28/24 07/18/24 documented as of this encounter
--- OUTSIDE RECORDS SUMMARY | 2024-08-13 05:16 | XMS_ITS | Encounter Summary ---
Author Organization [facility] Address [address] [facility] 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
--- OUTSIDE RECORDS SUMMARY | 2024-08-13 05:16 | XMS_ITS | Encounter Summary ---
Author Organization [facility] Address [address] [place] [address] Phone Care Team Providers Care Safety Investigator Name Role Phone Provider, None Primary Care Provider Mustapha Hall MD Unavailable [phone] Reason for Visit * Auth/Cert (Routine) Specialty Diagnoses / Procedures Referred By Samira yu Referred To Contact Referral ID Status Reason Start Date Expiration Date Visits Re quested Visits Authorized [id number] 1 1 Encounter Details Date Type Department Care Team (Latest Contact Info) Description 05/13/2024 11:00 AM CDT Home Care Visit [facility] [address] [place] [address] Homa Bernabe RN [place] SN - HOSPICE HOME VISIT Social History Tobacco Use Types Packs/Day Years Used Date Smoking Tobacco: Never Assessed Sex and Gender Information Value Date Recorded Sex Assigned at Not on file Legal Sex Male 2:48 AM FREIGHT FORWARDER Gender Identity Not on file Sexual Orientation [...] on filedocumented in this encounter Care Teams Safety Investigator Relationship Specialty Start Date End Date Provider, None [place] PCP - General 04/27/24 Mustapha Cárdenas MD [address] [place] [address] PCP - Hospice Attending Provider 04/28/24 07/18/24 documented as of this encounter
--- OUTSIDE RECORDS SUMMARY | 2024-08-13 05:16 | XMS_ITS | Encounter Summary ---
Author Organization [facility] Care Team Providers Care Truer Pinion And Wheel Name Role Phone Provider, None Primary Care Provider Mustapha Hall MD Unavailable Encounter Details Date Type Department Care Team (Latest Contact Info) Description 05/16/2024 Travel Social History Tobacco Use Types Packs/Day Years Used Date Smoking Tobacco: Never Assessed Sex and Gender Information Value Date Recorded Sex Assigned at Not on file Legal Sex Male 2:48 AM COLOR BUFFER Gender Identity Not on file Sexual Orientation Not on file documented as of this encounter Plan of Treatment Not on file documented as of this encounter Visit Diagnoses Not on filedocumented in this encounter Care Teams Truer Pinion And Wheel Relationship Specialty Start Date End Date Provider, None [place] PCP - General 04/27/24 Mustapha Cárdenas MD [address] [place] [address] PCP - Hospice Attending Provider 04/28/24 07/18/24 documented as of this encounter
--- OUTSIDE RECORDS SUMMARY | 2024-08-13 05:16 | XMS_ITS | Encounter Summary ---
Author Organization [facility] Address [address] [place] [address] Phone Care Team Providers Care Medical Assistant Supervisor Name Role Phone Provider, None Primary Care Provider Mustapha Hall MD Unavailable [phone] Reason for Visit * Auth/Cert (Routine) Specialty Diagnoses / Procedures Referred By Samira yu Referred To Contact Referral ID Status Reason Start Date Expiration Date Visits Re quested Visits Authorized [id number] 1 1 Encounter Details Date Type Department Care Team (Latest Contact Info) Description 05/21/2024 11:00 AM CDT [facility] [address] [place] [address] Homa Bernabe RN [place] SN - HOSPICE HOME VISIT Social History Tobacco Use Types Packs/Day Years Used Date Smoking Tobacco: Never Assessed Sex and Gender Information Value Date Recorded Sex Assigned at Not on file Legal Sex Male 2:48 AM ELECTRICAL 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
--- OUTSIDE RECORDS SUMMARY | 2024-08-13 05:16 | XMS_ITS | Encounter Summary ---
Author Organization [facility] Address [address] [place] [address] Phone Care Team Providers Care Qa Test Lead Name Role Phone Provider, None Primary Care Provider Mustapha Hall MD Unavailable [phone] Reason for Visit * Auth/Cert (Routine) Specialty Diagnoses / Procedures Referred By Samira yu Referred To Contact Referral ID Status Reason Start Date Expiration Date Visits Re quested Visits Authorized [id number] 1 1 Encounter Details Date Type Department Care Team (Latest Contact Info) Description 05/16/2024 11:00 AM CDT Home Care Visit [facility] [address] [place] [address] Homa Bernabe RN [place] SN - HOSPICE HOME VISIT Social History Tobacco Use Types Packs/Day Years Used Date Smoking Tobacco: Never Assessed Sex and Gender Information Value Date Recorded Sex Assigned at Not on file Legal Sex Male 2:48 AM QUALITY IMPROVEMENT CONSULTANT Gender Identity Not on file Sexual Orientation [...] on filedocumented in this encounter Care Teams Qa Test Lead Relationship Specialty Start Date End Date Provider, None [place] PCP - General 04/27/24 Mustapha Cárdenas MD [address] [place] [address] PCP - Hospice Attending Provider 04/28/24 07/18/24 documented as of this encounter
--- OUTSIDE RECORDS SUMMARY | 2024-08-13 05:16 | XMS_ITS | Encounter Summary ---
Author Organization [facility] Address [address] [place] [address] Phone Care Team Providers Care Comb Setter Name Role Phone Provider, None Primary Care Provider Mustapha Hall MD Unavailable [phone] Reason for Visit * Auth/Cert (Routine) Specialty Diagnoses / Procedures Referred By Samira yu Referred To Contact Referral ID Status Reason Start Date Expiration Date Visits Re quested Visits Authorized [id number] 1 1 Encounter Details Date Type Department Care Team (Latest Contact Info) Description 04/28/2024 1:00 PM CDT [facility] [address] [place] [address] Homa Bernabe RN [place] SN - HOSPICE ADMISSION Social History Tobacco Use Types Packs/Day Years Used Date Smoking Tobacco: Never Assessed Sex and Gender Information Value Date Recorded Sex Assigned at Not on file Legal Sex Male 2:48 AM FILL PLANT OPERATOR Gender Identity Not on file Sexual [...] Type -SN - Hospice Adm ission Discipline -Snf Problems Problem Description Start Date Status Goals Interve ntions HOSPICE SN GENERAL EDUCATION/INTERV ENTIONS Disciplines: Snf Hospice SN General Education/Interventi ons 04/28/2024 Active [...] services. documented in this encounter Care Teams Comb Setter Relationship Specialty Start Date End Date Provider, None [place] PCP - General 04/27/24 Mustapha Cárdenas MD [address] [place] [address] PCP - Hospice Attending Provider 04/28/24 07/18/24 documented as of this encounter
--- OUTSIDE RECORDS SUMMARY | 2024-08-13 05:16 | XMS_ITS | Encounter Summary ---
Author Organization [facility] Care Team Providers Care Joint Cutter Machine Name Role Phone Provider, None Primary Care Provider Mustapha Hall MD Unavailable [phone] Encounter Details Date Type Department Care Team (Latest Contact Info) Description 04/29/2024 Travel Social History Tobacco Use Types Packs/Day Years Used Date Smoking Tobacco: Never Assessed Sex and Gender Information Value Date Recorded Sex Assigned at Not on file Legal Sex Male 2:48 AM MANAGER TAX Gender Identity Not on file Sexual Orientation Not on file documented as of this encounter Plan of Treatment Not on file documented as of this encounter Visit Diagnoses Not on filedocumented in this encounter Care Teams Joint Cutter Machine Relationship Specialty Start Date End Date Provider, None [place] PCP - General 04/27/24 Mustapha Cárdenas MD [address] [place] [address] PCP - Hospice Attending Provider 04/28/24 07/18/24 documented as of this encounter
--- OUTSIDE RECORDS SUMMARY | 2024-08-13 05:16 | XMS_ITS | Encounter Summary ---
Author Organization [facility] Address [address] [place] [address] Phone Care Team Providers Care Engineering Manager Name Role Phone Provider, None Primary Care Provider Mustapha Hall MD Unavailable [phone] Reason for Visit * Auth/Cert (Routine) Specialty Diagnoses / Procedures Referred By Samira yu Referred To Contact Referral ID Status Reason Start Date Expiration Date Visits Re quested Visits Authorized [id number] 1 1 Encounter Details Date Type Department Care Team (Latest Contact Info) Description 05/07/2024 11:00 AM CDT [facility] [address] [place] [address] Homa Bernabe RN [place] SN - HOSPICE HOME VISIT Social History Tobacco Use Types Packs/Day Years Used Date Smoking Tobacco: Never Assessed Sex and Gender Information Value Date Recorded Sex Assigned at Not on file Legal 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
--- OUTSIDE RECORDS SUMMARY | 2024-08-13 05:16 | XMS_ITS | Encounter Summary ---
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
--- OUTSIDE RECORDS SUMMARY | 2024-08-13 05:16 | XMS_ITS | Encounter Summary ---
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
--- OUTSIDE RECORDS SUMMARY | 2024-08-13 05:16 | XMS_ITS | Encounter Summary ---
Author Organization [facility] Address [address] [place] [address] Phone Care Team Providers Care Dehydration Plant Operator Name Role Phone Provider, None Primary Care Provider Mustapha Hall MD Unavailable [phone] Reason for Visit * Auth/Cert (Routine) Specialty Diagnoses / Procedures Referred By Samira yu Referred To Contact Referral ID Status Reason Start Date Expiration Date Visits Re quested Visits Authorized [id number] 1 1 Encounter Details Date Type Department Care Team (Latest Contact Info) Description 05/09/2024 11:00 AM CDT [facility] [address] [place] [address] Homa Bernabe RN [place] - HOSPICE HOME VISIT Social History Tobacco Use Types Packs/Day Years Used Date Smoking Tobacco: Never Assessed Sex and Gender Information Value Date Recorded Sex Assigned at Not on file Legal 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
--- OUTSIDE RECORDS SUMMARY | 2024-08-13 05:16 | XMS_ITS | Encounter Summary ---
Author Organization [facility] Address [address] [facility] [place] [address] Phone Care Team Providers Care Draw End Hand Name Role Phone Provider, None Primary Care Provider Mustapha Hall MD Unavailable [phone] Reason for Visit * Auth/Cert (Routine) Specialty Diagnoses / Procedures Referred By Samira t Referred To Contact Referral ID Status Reason Start Date Expiration Date Visits Re quested Visits Authorized [id number] 1 1 Encounter Details Date Type Department Care Team (Late st Contact Info) Description 04/30/2024 Home Care Visit [facility] [address] [place] [address] Vlad Morris TELEPHONE ENCOUNTER Social History Tobacco Use Types Packs/Day Years Used Date Smoking Tobacco: Never Assessed Sex and Gender Information Value Date Recorded Sex Assigned at Not on file Legal Sex Male 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 Mirian agreed to a vist tomorrow 05/01/24 at 11 am. documented in this encounter Care Teams Draw End Hand Relationship Specialty Start Date End Date Provider, None [place] PCP - General 04/27/24 Mustapha Cárdenas MD [address] [place] [address] PCP - Hospice Attending Provider 04/28/24 07/18/24 documented as of this encounter
--- OUTSIDE RECORDS SUMMARY | 2024-08-13 05:16 | XMS_ITS | Encounter Summary ---
Author Organization [facility] Address [address] 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
--- OUTSIDE RECORDS SUMMARY | 2024-08-13 05:16 | XMS_ITS | Encounter Summary ---
Author Organization [facility] Address [address] [place] [address] Phone Care Team Providers Care Cracking And Fanning Machine Operator Name Role Phone Provider, None Primary Care Provider Mustapha Hall MD Unavailable [phone] Reason for Visit * Auth/Cert (Routine) Specialty Diagnoses / Procedures Referred By Samira t Referred To Contact Referral ID Status Reason Start Date Expiration Date Visits Re quested Visits Authorized [id number] 1 1 Encounter Details Date Type Department Care Team (Latest Contact Info) Description 05/07/2024 11:00 AM CDT [facility] [address] [place] [address] Martita Jean Baptiste MSW IMMIGRATION CASE MANAGER - HOSPICE VISIT Social History Tobacco Use Types Packs/Day Years Used Date Smoking Tobacco: Never Assessed Sex and Gender Information Value Date Recorded Sex Assigned at Not on file Legal Sex Male 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
--- OUTSIDE RECORDS SUMMARY | 2024-08-13 05:16 | XMS_ITS | Encounter Summary ---
Author Organization [facility] Address [address] [facility] [place] [address] Phone Care Team Providers Care Make Up Man Name Role Phone Provider, None Primary Care Provider Mustapha Hall MD Unavailable [phone] Encounter Details Date Type Department Care Team (Late st Contact Info) Description 04/28/[address] 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
--- OUTSIDE RECORDS SUMMARY | 2024-08-13 05:16 | XMS_ITS | Encounter Summary ---
Author Organization [facility] Address [address] [place] [address] Phone Care Team Providers Care Yoga Coordinator Name Role Phone Provider, None Primary Care Provider Mustapha Hall MD Unavailable [phone] Reason for Visit * Auth/Cert (Routine) Specialty Diagnoses / Procedures Referred By Samira yu Referred To Contact Referral ID Status Reason Start Date Expiration Date Visits Re quested Visits Authorized [id number] 1 1 Encounter Details Date Type Department Care Team (Latest Contact Info) Description 04/29/2024 11:00 AM CDT Home Care Visit [facility] [address] [place] [address] Homa Bernabe RN [place] SN - HOSPICE HOME VISIT Social History Tobacco Use Types Packs/Day Years Used Date Smoking Tobacco: Never Assessed Sex and Gender Information Value Date Recorded Sex Assigned at Not on file Legal 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
--- OUTSIDE RECORDS SUMMARY | 2024-08-13 05:16 | XMS_ITS | Encounter Summary ---
Author Organization [facility] Address [address] [facility] 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 documented in this encounter Plan of Treatment Not on file documented as of this encounter Visit Diagnoses Diagnosis Terminal care- Primary Encounter for palliative care documented in this encounter Care Teams Technical Planner Relationship Specialty Start Date End Date Provider, None [place] PCP - General 04/27/24 Mustapha Cárdenas MD [address] [place] [address] PCP - Hospice Attending Provider 04/28/24 07/18/24 documented as of this encounter
--- OUTSIDE RECORDS SUMMARY | 2024-08-13 05:16 | XMS_ITS | Encounter Summary ---
Author Organization [facility] Address [address] 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 [...] 2 times a week. New Orders: None MEDICAL MANAGER Plan reviewed and updated: 06/04/24 Patient and [...] filedocumented in this encounter Care Teams Line Technician Relationship Specialty Start Date End Date Provider, None [place] PCP - General 04/27/24 Mustapha Cárdenas MD [address] [place] [address] PCP - Hospice Attending Provider 04/28/24 07/18/24 documented as of this encounter
--- OUTSIDE RECORDS SUMMARY | 2024-08-13 05:16 | XMS_ITS | Encounter Summary ---
Author Organization [facility] Address [address] [facility] [place] [address] Phone Care Team Providers Care Prime Minister Name Role Phone Provider, None Primary Care Provider Mustapha Hall MD Unavailable [phone] Reason for Visit * Auth/Cert (Routine) Specialty Diagnoses / Procedures Referred By Samira yu Referred To Contact Referral ID Status Reason Start Date Expiration Date Visits Re quested Visits Authorized [id number] 1 1 Encounter Details Date Type Department Care Team (Late st Contact Info) Description 04/28/2024 [facility] [address] [place] [address] Geoff Loera BC -INITIAL EVALUATION Social History Tobacco Use Types Packs/Day Years Used Date Smoking Tobacco: Never Assessed Sex and Gender Information Value Date Recorded Sex Assigned at Not on file Legal Sex Male 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 Gender Identity Not on file Sexual Orientation Not on file documented as of this encounter Plan of Treatment Not on file documented as of this encounter Visit Diagnoses Not on filedocumented in this encounter Hospice Visit - Care Plan Visit Details Visit Type -BC - INITIAL [place] Discipline -Aluminum Can Collector Problems Problem Description Start Date Status Goals Interve ntions BEREAVEMENT PATIENT Disciplines: Aluminum Can Collector 04/28/2024 Active 1 goal linked to scheduled/document ed intervention 1 goal intervention scheduled/document ed in this visit BEREAVEMENT CAREGIVER Disciplines: Aluminum Can Collector 04/28/2024 Active 1 goal linked to scheduled/document ed intervention 1 goal intervention scheduled/document ed in this visit Goals Goal Associated Problem Outcome Goal Met? Visit Notes Bereavement Patient BEREAVEMENT PATIENT No Bereavement Caregiver BEREAVEMENT CAREGIVER No Interventions Intervention Associated Problem/Goal Status Variance Visit Notes Pain/Symptoms Problem:BEREAVEMENT PATIENT Goal:Bereavement Patient Scheduled Pain/Symptoms Problem:BEREAVEMENT CAREGIVER Goal:Bereavement Caregiver Scheduled documented in this encounter Care Teams Prime Minister Relationship Specialty Start Date End Date Provider, Yeni MD PCP - General 04/27/24 Mustapha Cárdenas MD [address] [place] [address] PCP - Hospice Attending Provider 04/28/24 07/18/24 documented as of this encounter
--- OUTSIDE RECORDS SUMMARY | 2024-08-13 05:16 | XMS_ITS | Encounter Summary ---
Author Organization [facility] Address [address] [place] [address] Phone Care Team Providers Care Wind Energy Technician Name Role Phone Provider, None Primary Care Provider Mustapha Hall MD Unavailable [phone] Reason for Visit * Auth/Cert (Routine) Specialty Diagnoses / Procedures Referred By Samira yu Referred To Contact Referral ID Status Reason Start Date Expiration Date Visits Re quested Visits Authorized [id number] 1 1 Encounter Details Date Type Department Care Team (Latest Contact Info) Description 05/01/2024 1:00 PM CDT [facility] [address] [place] [address] Earl Roblero CNA PR [facility] - HOSPICE VISIT Social History Tobacco Use Types Packs/Day Years Used Date Smoking Tobacco: Never Assessed Sex and Gender Information Value Date Recorded Sex Assigned at Not on file Legal Sex Male 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 Gender Identity Not on file Sexual Orientation Not on file documented as of this encounter Plan of Treatment Not on file documented as of this encounter Visit Diagnoses Not on filedocumented in this encounter Hospice Visit - Care Plan Visit Details Visit Type -[facility] - HOSPICE Vi sit Discipline -School Bus Driver/Mechanic Problems Problem Description Start Date Status Goals Interve ntions [facility] SERVICES Disciplines: School Bus Driver/Mechanic 04/28/2024 Active 1 goal linked to scheduled/document ed intervention 1 goal intervention scheduled/document ed in this visit [facility] PROVIDE BATH Disciplines: School Bus Driver/Mechanic 04/28/2024 Active - 1 problem intervention scheduled/document ed in this visit [facility] CARE PLAN Disciplines: School Bus Driver/Mechanic [facility] Care Plan 04/28/2024 Active - 7 [...] condition, complaints and safety concerns to the Workers Compensation Specialist. Problem:[facility] SERVICES Goal:[facility] Care Plan Completed [...] Problem:[facility] CARE PLAN Completed Communicate with Hay Farmer Description: Communicate with primary health organisation manager as needed. Problem:[facility] CARE PLAN Completed documented in this encounter Care Teams Wind Energy Technician Relationship Specialty Start Date End Date Provider, None [place] PCP - General 04/27/24 Mustapha Cárdenas MD [address] [place] [address] PCP - Hospice Attending Provider 04/28/24 07/18/24 documented as of this encounter
--- OUTSIDE RECORDS SUMMARY | 2024-08-13 05:16 | XMS_ITS | Encounter Summary ---
Author Organization [facility] Address [address] [facility] [place] [address] Phone Care Team Providers Care Staff Developer Name Role Phone Provider, None Primary Care Provider Mustapha Hall MD Unavailable Reason for Visit * Auth/Cert (Routine) Specialty Diagnoses / Procedures Referred By Samira t Referred To Contact Referral ID Status Reason Start Date Expiration Date Visits Re quested Visits Authorized [id number] 1 1 Encounter Details Date Type Department Care Team (Late st Contact Info) Description [facility]/02/2024 [facility] [address] [place] [address] Homa Bernabe, RN [place] DISEASE MGT PHONE Social History Tobacco Use Types Packs/Day Years Used Date Smoking Tobacco: Never Assessed Sex and Gender Information Value Date Recorded Sex Assigned at Not on file Legal Sex Male 2:48 AM PUBLIC RELATIONS Gender Identity Not on file Sexual Orientation Not on file documented as of this encounter Plan of Treatment Not on file documented as of this encounter Visit Diagnoses Not on filedocumented in this encounter Care Teams Staff Developer Relationship Specialty Start Date End Date Provider, None [place] PCP - General 04/27/24 Mustapha Cárdenas MD [address] [place] [address] PCP - Hospice Attending Provider 04/28/24 07/18/24 documented as of this encounter
--- OUTSIDE RECORDS SUMMARY | 2024-08-13 05:16 | XMS_ITS | Encounter Summary ---
Author Organization [facility] Care Team Providers Care Commercial Art Instructor Name Role Phone Provider, None Primary Care Provider Mustapha Hall MD Unavailable Encounter Details Date Type Department Care Team (Latest Contact Info) Description 05/21/2024 Travel Social History Tobacco Use Types Packs/Day Years Used Date Smoking Tobacco: Never Assessed Sex and Gender Information Value Date Recorded Sex Assigned at Not on file Legal Sex Male 2:48 AM RN SURGICAL Gender Identity Not on file Sexual Orientation Not on file documented as of this encounter Plan of Treatment Not on file documented as of this encounter Visit Diagnoses Not on filedocumented in this encounter Care Teams Commercial Art Instructor Relationship Specialty Start Date End Date Provider, None [place] PCP - General 04/27/24 Mustapha Cárdenas MD [address] [place] [address] PCP - Hospice Attending Provider 04/28/24 07/18/24 documented as of this encounter
--- OUTSIDE RECORDS SUMMARY | 2024-08-13 05:16 | XMS_ITS | Encounter Summary ---
Author Organization [facility] Address [address] [place] [address] Phone Care Team Providers Care Enamel Pulverizer Name Role Phone Provider, None Primary Care Provider Mustapha Hall MD Unavailable [phone] Reason for Visit * Auth/Cert (Routine) Specialty Diagnoses / Procedures Referred By Samira t Referred To Contact Referral ID Status Reason Start Date Expiration Date Visits Re quested Visits Authorized [id number] 1 1 Encounter Details Date Type Department Care Team (Late st Contact Info) Description 05/02/2024 [facility] [address] [place] [address] Martita Jean Baptiste, GAS EXAMINER TELEPHONE ENCOUNTER Social History Tobacco Use Types Packs/Day Years Used Date Smoking Tobacco: Never Assessed Sex and Gender Information Value Date Recorded Sex Assigned at Not on file Legal Sex Male 2: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 documented in this encounter Care Teams Enamel Pulverizer Relationship Specialty Start Date End Date Provider, None [place] PCP - General 04/27/24 Mustapha Cárdenas MD [address] [place] [address] PCP - Hospice Attending Provider 04/28/24 07/18/24 documented as of this encounter
--- OUTSIDE RECORDS SUMMARY | 2024-08-13 05:16 | XMS_ITS | Encounter Summary ---
Author Organization [facility] Address [address] [place] [address] Phone Care Team Providers Care Polisher Eyeglass Frames Name Role Phone Provider, None Primary Care Provider Mustapha Hall MD Unavailable [phone] Reason for Visit * Auth/Cert (Routine) Specialty Diagnoses / Procedures Referred By Samira yu Referred To Contact Referral ID Status Reason Start Date Expiration Date Visits Re quested Visits Authorized [id number] 1 1 Encounter Details Date Type Department Care Team (Latest Contact Info) Description 05/22/2024 1:00 PM CDT [facility] [address] [place] [address] Earl Roblero CNA [place] [facility] - HOSPICE VISIT Social History Tobacco Use Types Packs/Day Years Used Date Smoking Tobacco: Never Assessed Sex and Gender Information Value Date Recorded Sex Assigned at Not on file Legal Sex Male 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 Gender Identity Not on file Sexual Orientation [...] Type -[facility] - HOSPICE Vi sit Discipline -Nature Photographer Problems Problem Description Start Date Status Goals Interve ntions [facility] SERVICES Disciplines: Nature Photographer 04/28/2024 Active 1 goal linked to scheduled/document ed intervention 1 goal intervention scheduled/document ed in this visit [facility] PROVIDE BATH Disciplines: Nature Photographer 04/28/2024 Active - 1 problem intervention scheduled/document ed in this visit [facility] CARE PLAN Disciplines: Nature Photographer [facility] Care Plan 04/28/2024 Active - 7 problem interventions scheduled/document ed in this visit [facility] CARE PLAN Disciplines: Nature Photographer [facility] Care Plan 05/13/2024 Active - 1 [...] condition, complaints and safety concerns to the Kinder Teacher. Problem:[facility] SERVICES Goal:[facility] Care Plan Completed [...] declines. Problem:[facility] CARE PLAN Completed Communicate with Sewer Pipe Cleaner Description: Communicate with assembly machine tender as needed. Problem:[facility] CARE PLAN Completed Assist With Shaving Description: Shave patient unless patient/caregiver declines. Problem:[facility] CARE PLAN Completed documented in this encounter Care Teams Polisher Eyeglass Frames Relationship Specialty Start Date End Date Provider, None [place] PCP - General 04/27/24 Mustapha Cárdenas MD [address] [place] [address] PCP - Hospice Attending Provider 04/28/24 07/18/24 documented as of this encounter
--- OUTSIDE RECORDS SUMMARY | 2024-08-13 05:16 | XMS_ITS | Encounter Summary ---
Author Organization [facility] Care Team Providers Care De Alcholizer Name Role Phone Provider, None Primary Care Provider Mustapha Hall MD Unavailable Encounter Details Date Type Department Care Team (Latest Contact Info) Description 05/23/2024 Travel Social History Tobacco Use Types Packs/Day Years Used Date Smoking Tobacco: Never Assessed Sex and Gender Information Value Date Recorded Sex Assigned at Not on file Legal Sex Male 2:48 AM PRIZE JACKER Gender Identity Not on file Sexual Orientation Not on file documented as of this encounter Plan of Treatment Not on file documented as of this encounter Visit Diagnoses Not on filedocumented in this encounter Care Teams De Alcholizer Relationship Specialty Start Date End Date Provider, None [place] PCP - General 04/27/24 Mustapha Cárdenas MD [address] [place] [address] PCP - Hospice Attending Provider 04/28/24 07/18/24 documented as of this encounter
--- OUTSIDE RECORDS SUMMARY | 2024-08-13 05:17 | XMS_ITS | Encounter Summary ---
Author Organization [facility] Address [address] [place] [address] Care Team Providers Care Generating Station Mechanic Name Role Phone Tommie Lu MD Primary Care Provider + Encounter Details Date Type Department Care Team (Late st Contact Info) Description 02/27/2017 Telephone [facility] [address] [place] [address] [place] [address] [place] [address] [place] [address] Social History Tobacco Use Types Packs/Day Years Used Date Smoking Tobacco: Former Alcohol Use Standard Drinks/Week Comments Yes 0 (1 standard drink = 0.6 oz pur e alcohol) Sex and Gender Information Value Date Recorded Sex Assigned at Not on file Legal Sex Male 8:13 AM COMMUNITY DEVELOPMENT 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
--- OUTSIDE RECORDS SUMMARY | 2024-08-13 05:17 | XMS_ITS | Encounter Summary ---
Author Organization [facility] Address [address] [place] [address] Phone Care Team Providers Care Forensics Team Director Name Role Phone Ganesh Prince MD Primary Care Provider + [phone] Encounter Details Date Type Department Care Team (Late st Contact Info) Description 08/01/2023 Documentation [facility] [address] [place] [address] [address] [place] [address] Pilar Miner, RN Social History Tobacco Use Types Packs/Day Years Used Date Smoking Tobacco: Former Alcohol Use Standard Drinks/Week Comments Yes 0 (1 standard drink = 0.6 oz pur e alcohol) Sex and Gender Information Value Date Recorded Sex Assigned at Not on file Legal Sex Male 8:13 AM CASH POSTING REPRESENTATIVE Gender Identity Not on file Sexual [...] constantly. Can we increase the dose? Pilar POSTING REPRESENTATIVE documented in this encounter Plan of Treatment Not on file documented as of this encounter Visit Diagnoses Not on filedocumented in this encounter Care Teams Forensics Team Director Relationship Specialty Start Date End Date Ganesh Prince MD PCP - General 11/28/17 documented as of this encounter
--- OUTSIDE RECORDS SUMMARY | 2024-08-13 05:17 | XMS_ITS | Encounter Summary ---
Author Organization [facility] Address 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
--- OUTSIDE RECORDS SUMMARY | 2024-08-13 05:17 | XMS_ITS | Encounter Summary ---
Author Organization [facility] Address [address] [place] [address] Phone Care Team Providers Care Bindery Assistant Name Role Phone Ganesh Prince MD Primary Care Provider + [phone] Encounter Details Date Type Department Care Team (Late st Contact Info) Description 04/24/[address] 6[address] [place] [address] Silvia Moraes Social History Tobacco Use Types Packs/Day Years Used Date Smoking Tobacco: Former Alcohol Use Standard Drinks/Week Comments Yes 0 (1 standard drink = 0.6 oz pur e alcohol) Sex and Gender Information Value Date Recorded Sex Assigned at Not on file Legal Sex Male 8:13 AM CARRY ALL DRIVER Gender Identity Not on file Sexual Orientation Not on file documented as of this encounter Progress Notes * Silvia Moraes - 04/24/2024 5:25 PM CDT This CC conducted unscheduled in-person care consultation w/Mirian ???Murtaza?? Seema at the [address] [facility] [address] [facility] following referral by the nurse practitioner. She???s the PCG for her , Ganesh, who has EOAD. He???s 63 yrs old. They live in their home in [place], [place]. Murtaza reported that Ganesh is being evaluated for hospice next week. [facility] referral to hospice came from a friend. This cc is unsure he'll qualify. If he doesn't, this CC encouraged Murtaza to let Dianne Worthington know and to ask for a referral to palliative care. She's considering placement. she and her son have begun looking at their options. so far, they've only explored [facility], in [place]. This CC provided a list of several other options. Action Plan: 1) Let [facility] know if a referral to palliative care is needed. 2) Use provided list to explore Assisted Living options in your area. documented in this encounter Plan of Treatment Not on file documented as of this encounter Visit Diagnoses Not on filedocumented in this encounter Care Teams Bindery Assistant Relationship Specialty Start Date End Date Ganesh Prince MD PCP - General 11/28/17 documented as of this encounter
--- OUTSIDE RECORDS SUMMARY | 2024-08-13 05:17 | XMS_ITS | Encounter Summary ---
Author Organization [facility] Address [address] [place] [address] Care Team Providers Care Painter Touch Up Name Role Phone Tommie Lu MD Primary Care Provider + Encounter Details Date Type Department Care Team (Latest Contact Info) Description 03/15/2017 10:00 AM CDT - 03/15/2017 11:59 PM T Hospital Encounter [facility] INTERIM [phone] Martita Love MD PhD [address] [facility] [address] [place] [address] Discharge Disposition: Discharge to home or self care Social History Tobacco Use Types Packs/Day Years Used Date Smoking Tobacco: Former Alcohol Use Standard Drinks/Week Comments Yes 0 (1 standard drink = 0.6 oz pur e alcohol) Sex and Gender Information Value Date Recorded Sex Assigned at Not on file Legal 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 [place] [address] * Save heme (03/15/2017 10:01 AM CDT) Save Complete Fluid will be refrigerated for 7 days, then frozen for 30 days. At the end of the 30 days, the fluid will be destroyed. [facility] Save Type CSF [facility] Miscellaneous 03/15/2017 10: 01 AM CDT 03/15/2017 1:39 PM CDT Martita Love MD PhD LAB BLOOD ORDERABLES E dited Result - Final Performing Organization Address [facility] de Phone Number [facility] [place] [address] * Glucose, CSF (03/15/2017 10:00 AM CDT) Glucose, CSF 69 mg/dL [facility] Comment: Interpretive Data Reference Interval Information: CSF [...] OOLS ORDERABLES Final Result Performing Organization Address [facility] de Phone Number [facility] Department [place] [address] * Protein, total, CSF (03/15/2017 10:00 AM CDT) Protein, CSF 38 5 - 45 mg/dL [facility] CSF 03/15/2017 10:0 0 AM CDT 03/15/2017 1:38 PM CDT Martita Love MD PhD LAB BODY FLUIDS AND ST OOLS ORDERABLES Final Result Performing Organization Address [facility] de Phone Number [facility] [place] [address] * (ABNORMAL) Cell count and differential, CSF (03/15/2017 10:00 AM CDT) Tube Number, CSF Tube 1 [facility] Color, CSF Colorless Colorless [facility] Clarity, CSF Clear Clear [facility] Xanthochromia , CSF Absent Absent [facility] RBC, CSF 229(H) 0 - 0 /cumm [facility] Nucleated cells, CSF 0 <=10 /cumm [facility] Total cells diffed Diff Not Done Cells [facility] CSF 03/15/2017 10:0 0 AM CDT 03/15/2017 1:37 PM CDT Martita Love MD PhD LAB BODY FLUIDS AND ST OOLS ORDERABLES Final Result [facility] [address] [facility] [place] [address] * DISCHARGE LABORATORY CUMULATIVE REPORT (03/15/2017 12:00 AM CDT) Narrative 03/15/2017 12:00 AM CDT Ordered by an unspecified provider. Historical Provider LAB BLOOD ORDERABLES Mariza l Result documented in this encounter Visit Diagnoses Not on filedocumented in this encounter Care Teams Painter Touch Up Relationship Specialty Start Date End Date Tommie Lu MD [address] [place] [address] PCP - General 11/10/16 11/27/17 documented as of this encounter
--- OUTSIDE RECORDS SUMMARY | 2024-08-13 05:17 | XMS_ITS | Encounter Summary ---
Author Organization [facility] Address [address] [place] [address] Phone Care Team Providers Care Ticket Worker Name Role Phone Ganesh Prince MD Primary Care Provider [phone] Encounter Details Date Type Department Care Team (Late st Contact Info) Description 07/14/[address] 6[address] [place] [address] Silvia Moraes Social History Tobacco Use Types Packs/Day Years Used Date Smoking Tobacco: Former Alcohol Use Standard Drinks/Week Comments Yes 0 (1 standard drink = 0.6 oz pur e alcohol) Sex and Gender Information Value Date Recorded Sex Assigned at Not on file Legal 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 UNTANT CLERK documented in this encounter Plan of Treatment Not on file documented as of this encounter Visit Diagnoses Not on filedocumented in this encounter Care Teams Ticket Worker Relationship Specialty Start Date End Date Ganesh Prince MD PCP - General 11/28/17 documented as of this encounter
--- OUTSIDE RECORDS SUMMARY | 2024-08-13 05:17 | XMS_ITS | Encounter Summary ---
Author Organization [facility] Address [address] [place] [address] Care Team Providers Care Sterilisation Technician Name Role Phone Ganesh Prince MD Primary Care Provider + [phone] Encounter Details Date Type Department Care Team (Late st Contact Info) Description 11/18/2019 Telephone [facility] Medical [facility] - [facility] [address] [place] [address] Guadalupe Em DO [address] [facility] [address] [place] [address] Social History Tobacco Use Types Packs/Day Years Used Date Smoking Tobacco: Former Alcohol Use Standard Drinks/Week Comments Yes 0 (1 standard drink = 0.6 oz pur e alcohol) Sex and Gender Information Value Date Recorded Sex Assigned at Not on file Legal Sex Male 8:13 AM CREDIT CLERK Gender Identity Not on file Sexual [...] on filedocumented in this encounter Care Teams Sterilisation Technician Relationship Specialty Start Date End Date Ganesh Prince MD PCP - General 11/28/17 documented as of this encounter
--- OUTSIDE RECORDS SUMMARY | 2024-08-13 05:17 | XMS_ITS | Referral Summary ---
Author Organization [facility] Address [address] [place] [address] Care Team Providers Care Microwave Engineer Name Role Phone Ganesh Prince MD Primary Care Provider [phone] Encounters Date Type Department Care Team Description 07/22/2024 3:42 AM ELECTRIC BLANKET WIRER - 07/22/2024 7:51 AM [facility] Emergency [facility] Emergency Department [address] [place] [address] Yoanna Ugarte MD Closed head injury, initial [...] Consider placement Hospice/ palliative evaluation met with Casting Tester Vero Moraes for resources and support Hearing [...] summer. Assessment & Plan (07/21/2019 5:31 PM ELECTRIC BLANKET WIRER): Continue donepezil 10mg daily. Increase escitalopram to [...] on file Legal Sex Male 8:13 AM ELECTRIC BLANKET WIRER Gender Identity Not on file Sexual Orientation Not on file Last Filed Vital Signs Vital Sign Reading Time Taken Comments Blood Pressure 106/69 07/22/2024 6:00 AM ELECTRIC BLANKET WIRER Pulse 74 07/22/2024 6:00 AM ELECTRIC BLANKET WIRER Temperature 36.9 ??C (98.4 ??F) 07/22/2024 1 2:22 AM ELECTRIC BLANKET WIRER Respiratory Rate 18 07/22/2024 5:00 AM ELECTRIC BLANKET WIRER Oxygen Saturation 95% 07/22/2024 6:00 AM ELECTRIC BLANKET WIRER Inhaled Oxygen Concentration - - Weight 72.1 kg (158 lb 15.2 oz) 024 12:22 AM ELECTRIC BLANKET WIRER Height 167.6 cm (5' 5.98 ) 07/22/2024 1 2:22 AM ELECTRIC BLANKET WIRER Body Mass Index 25.67 07/22/2024 12:22 AM ELECTRIC BLANKET WIRER Plan of Treatment Not on file Procedures Procedure Name Priority Date/Time Associated Diagnosis Comments URINALYSIS AND REFLEX TO MICROSCOPIC AND CULTURE STAT 07/22/2024 7:[address] HEAD WO CONTRAST ED 07/22/2024 5 :47 AM ELECTRIC BLANKET WIRER EGFR STAT 07/22/2024 12:43 AM ELECTRIC BLANKET WIRER DIFFERENTIAL AUTO STAT 07/22/2024 12: 43 AM ELECTRIC BLANKET WIRER COMPREHENSIVE METABOLIC PANEL STAT 07/22/2024 12:43 AM ELECTRIC BLANKET WIRER CBC WITH AUTO DIFFERENTIAL STAT 07/22/2024 12:[address] ABDOMEN PELVIS W CONTRAST Schedule Routine, Read Routine (OP Routine) 12/07/2022 3:14 PM CDT Abdominal pain, unspecified abdominal location PSA SCREENING Routine 03/14/2016 COLONOSCOPY Routine 01/03/2012 from Last 3 Months or Most Recently Relevant to Health Maintenance Results * Urinalysis reflex to microscopic and culture Urine (07/22/2024 7:21 AM ELECTRIC BLANKET WIRER) Color, ur Yellow Yellow Clarity, ur Clear [...] tendency for uric acid stone formation. Source: [employer] Current Interpretive Data was last revised on [...] [facility] (JENNYFER) Urine 07/22/2024 7:21 AM ELECTRIC BLANKET WIRER 07/22/2024 7:23 AM ELECTRIC BLANKET WIRER [facility] MICROBIOLOGY - GENERAL GABE HARRISON Final Result SHON LAI (JENNYFER) 1 [facility] Department [place] [address] * CT Head WO Contrast (07/22/2024 5:47 AM ELECTRIC BLANKET WIRER) Anatomical Region Laterality Modality Head and Neck N/A Computed Tomogra phy 07/22/2024 6:37 AM ELECTRIC BLANKET WIRER Narrative 07/22/2024 6:39 AM ELECTRIC BLANKET WIRER EXAM DESCRIPTION: ?? CT HEAD WO CONTRAST [...] AM T: ??07/22/2024 6:39 AM Report ID: [id number] Reading Location: ??[id number] Procedure Note Mirta Bell MD - 07/22/2024 [...] by Mirta Bell M.D. SN: Report ID: [id number] Reading Location: [id number] Yoanna Ugarte MD IMG CT PROCEDURES Final Result * eGFR (07/22/2024 12:43 AM ELECTRIC BLANKET WIRER) eGFR >90 >=60 mL/min/1. 73 m2 Comment: [...] reviewed 2021. Blood 07/22/2024 12:4 3 AM ELECTRIC BLANKET WIRER 07/22/2024 12:46 AM ELECTRIC BLANKET WIRER us [facility] BLOOD ORDERABLES Final Resu lt SHON LAI (ECHO) 1 [facility] Department [place] [address] * Differential, auto (07/22/2024 12:43 AM ELECTRIC BLANKET WIRER) Neutrophil abs 5.6 1.5 - 6.5 K/cumm [...] on 2017. Blood 07/22/2024 12:4 3 AM ELECTRIC BLANKET WIRER 07/22/2024 12:46 AM ELECTRIC BLANKET WIRER us Saadia BALLESTEROS LAB BLOOD ORDERABLES Final Resu lt SHON LAI (JENNYFER) 1 [facility] Department [place] [address] * CBC with auto differential (07/22/2024 12:43 AM ELECTRIC BLANKET WIRER) WBC 7.8 3.8 - 9.9 K/cumm Hgb [...] [facility] (JENNYFER) Blood 07/22/2024 12:4 3 AM ELECTRIC BLANKET WIRER 07/22/2024 12:46 AM ELECTRIC BLANKET WIRER us Sa[facility]LESTER[facility] BLOOD ORDERABLES Final [facility]u lt [facility] 1 [facility] Department [place] [address] * (ABNORMAL) Comprehensive metabolic panel (07/22/2024 12:43 AM ELECTRIC BLANKET WIRER) Pathologist [facility] Sodium 134(L) 135 - 145 mmol/L Potassium, [...] [facility] (JENNYFER) Blood 07/22/2024 12:4 3 AM ELECTRIC BLANKET WIRER 07/22/2024 12:46 AM ELECTRIC BLANKET WIRER us Saadia BALLESTEROS [facility] BLOOD ORDERABLES Final Resu lt [facility] (JENNYFER) 1 [facility] Department [place] [address] * CT Abdomen Pelvis W Contrast (12/07/2022 [...] seen within the prostate. ??Otherwise, unremarkable. VASCULATURE: Wows-ot-vavwwbqx aortoiliac atherosclerosis. ?? No abdominal aortic aneurysm. [...] PM T: ??12/07/2022 11:42 PM Report ID: [id number] Reading Location: ??[id number] Procedure Note Ganesh Hall, DO - 12/07/2022 [...] seen within the prostate. Otherwise, unremarkable. VASCULATURE: Iidx-bh-eyodbtoi aortoiliac atherosclerosis. No abdominal aortic aneurysm. MUSCULOSKELETAL: No acute abnormality. Mild to moderate degenerative changes of the spine and bilateral hip joints. OTHER: No other abnormality. IMPRESSION: 1. No acute intra-abdominal/pelvic abnormality. 2. Additional findings as detailed. THIS IS AN ELECTRONICALLY VERIFIED FINAL REPORT 12/07/2022 11:42 PM - Electronically signed by Ganesh Hall M.D. MF: BREANNA Report ID: [id number] Reading Location: [id number] Ganesh Prince MD IMG CT PROCEDURES Final Resu lt * PSA SCREENING (03/14/2016) PSA Normal Result [facility] Historical Provider HEALTH MAINTENANCE Final Result * COLONOSCOPY (01/03/2012) Colonoscopy Abnormal Comment:Diverticulosis Anatomical Region Laterality Modality Other Historical Provider HEALTH MAINTENANCE Final Result from Last 3 Months or Most Recently Relevant to Health Maintenance Insurance [employer] CHOICE MEDICARE PPO MEDICARE [facility] INS CO [employer] CHOICE MEDICARE PPO MEDICARE Care Teams Microwave Engineer Relationship Specialty Start Date End Date Ganesh Prince MD PCP - General 11/28/17
--- OUTSIDE RECORDS SUMMARY | 2024-08-13 05:17 | XMS_ITS | Encounter Summary ---
Author Organization [facility] Address [address] [place] [address] Phone Care Team Providers Care Messenger Floorperson Name Role Phone Ganesh Prince MD Primary Care Provider + [phone] Encounter Details Date Type Department Care Team (Late st Contact Info) Description 07/04/[address] [place] [address] Pilar Miner, RN Social History Tobacco Use Types Packs/Day Years Used Date Smoking Tobacco: Former Alcohol Use Standard Drinks/Week Comments Yes 0 (1 standard drink = 0.6 oz pur e alcohol) Sex and Gender Information Value Date Recorded Sex Assigned at Not on file Legal Sex Male 8:13 AM FIELD APPLICATION ENGINEER Gender Identity Not on file Sexual [...] to watch for. Prescription called into pharmacy. D APPLICATION ENGINEER documented in this encounter Plan of Treatment Not on file documented as of this encounter Visit Diagnoses Not on filedocumented in this encounter Care Teams Messenger Floorperson Relationship Specialty Start Date End Date Ganesh Prince MD PCP - General 11/28/17 documented as of this encounter
--- OUTSIDE RECORDS SUMMARY | 2024-08-13 05:17 | XMS_ITS | Encounter Summary ---
Author Organization [facility] Address [address] [address] Care Team Providers Care Slate Handler Name Role Phone Ganesh Prince MD Primary Care Provider [phone] Reason for Referral * ENT (Routine) - Closed Specialty Diagnoses / Procedures Referred By Samira yu Referred To Contact Diagnoses Fullness in ear, unspecified laterality Hearing loss of left ear, unspecified hearing loss type Bilateral impacted cerumen Procedures Ear Cerumen Removal Guadalupe Em DO Phone: tel: fax: [facility] Referral ID Status Reason Start Date Expiration Date Visits Re quested Visits Authorized [id number] Closed 11/20/2019 05/31/2021 1 1 Reason for Visit * Reason Comments Ear Problem Hearing Loss 2 wk hx. * Consultation (Routine) - Closed Specialty Diagnoses / Procedures Referred By Samira yu Referred To Contact Otolaryngology Diagnoses Fullness in ear, unspecified laterality Ganesh Prince MD Phone: tel: fax: Guadalupe Em DO [address] [place] [address] [address] JUDY Kaplan [address] [address] Phone: tel: fax: Referral ID Status Reason Start Date Expiration Date V isits Requested Visits Authorized [id number] Closed Specialty Services Required 11/20/2019 05/31/2021 12 12 Encounter Details Date Type Department Care Team (Late st Contact Info) Description 11/20/2019 10:30 AM CDT Office Visit [facility] ENT Specialists - [facility] [address] [facility] [address] [place] [address] Guadalupe Em DO [address] [place] [address] [address]Y [address] [place] [address] Hearing loss of left ear, unspecified hearing [...] on file Legal Sex Male 8:13 AM PAINT TECHNICIAN Gender Identity Not on file Sexual [...] documented in this encounter Progress Notes * Guadalupe Em DO - 11/20/2019 10:30 AM CDTAssociated [...] Procedure Name Priority Date/Time Associated Diagnosis Comments OK REMOVAL IMPACTED CERUMEN INSTRUMENTATION UNILAT Routine 11/20/2019 10:30 AM CDT Fullness in ear, unspecified laterality Hearing loss of left ear, unspecified hearing loss type Bilateral impacted cerumen documented in this encounter Results * OK REMOVAL IMPACTED CERUMEN INSTRUMENTATION UNILAT (11/20/2019 10:30 AM CDT) Narrative Guadalupe Em, DO - 11/20/2019 10:30 AM CDT Guadalupe Em, DO ? 11/20/2019 12:57 PM Ear Cerumen Removal Date/Time: 11/20/2019 11:16 AM Performed by: Guadalupe Em, DO Authorized by: Guadalupe Em, DO Consent [...] 11/20/2019 documented in this encounter Care Teams Slate Handler Relationship Specialty Start Date End Date Ganesh Prince MD PCP - General 11/28/17 documented as of this encounter
--- OUTSIDE RECORDS SUMMARY | 2024-08-13 05:17 | XMS_ITS | Encounter Summary ---
Author Organization [facility] Address [address] [facility] [address] [place] [address] Care Team Providers Care Dish Room Worker Name Role Phone Tommie Lu MD Primary Care Provider + Encounter Details Date Type Department Care Team (Late st Contact Info) Description 02/26/2017 4:00 PM CDT Lab [facility] [address] [facility] [address] [place] [address] Hyposmolality and/or hyponatremia Social History Tobacco Use Types Packs/Day Years Used Date Smoking Tobacco: Former Alcohol Use Standard Drinks/Week Comments Yes 0 (1 standard drink = 0.6 oz pur e alcohol) Sex and Gender Information Value Date Recorded Sex Assigned at Not on file 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
--- OUTSIDE RECORDS SUMMARY | 2024-08-13 05:17 | XMS_ITS | Encounter Summary ---
Author Organization [facility] Address [address] [place] [address] Care Team Providers Care Computer Tape Librarian Name Role Phone Tommie Lu MD Primary Care Provider + Encounter Details Date Type Department Care Team (Late st Contact Info) Description 01/27/2017 6:00 PM CDT - 01/27/2017 11:59 PM CDT Emergency [facility] Emergency Department 1 [place] [address] Discharge Disposition: Discharge to home or self care Social History Tobacco Use Types Packs/Day Years Used Date Smoking Tobacco: Former Alcohol Use Standard Drinks/Week Comments Yes 0 (1 standard drink = 0.6 oz pur e alcohol) Sex and Gender Information Value Date Recorded Sex Assigned at Not on file Legal Sex Male 8:13 AM RN MOBILE Gender Identity Not on file Sexual Orientation [...] on filedocumented in this encounter Care Teams Computer Tape Librarian Relationship Specialty Start Date End Date Tommie Lu MD [address] [place] [address] PCP - General 11/10/16 11/27/17 documented as of this encounter
--- OUTSIDE RECORDS SUMMARY | 2024-08-13 05:17 | XMS_ITS | Encounter Summary ---
Author Organization [facility] Address [address] [place] [address] Phone Care Team Providers Care Operator Command Support Systems Name Role Phone Ganesh Prince MD Primary Care Provider [phone] Reason for Referral * Consultation (Routine) - Closed Specialty Diagnoses / Procedures Referred By Samira yu Referred To Contact Occupational Therapy Diagnoses 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 disturbance (HCC) Karina Joseph NP Phone: tel: fax: [facility] [address] [place] [address] Phone: tel: fax: Referral ID Status Reason Start Date Expiration Date V isits Requested Visits Authorized [id number] Closed Specialty Services Required 07/03/2022 08/02/2023 12 12 Question Answer PTRFR OT Evaluate and Treat Therapy options discussed with patient? Yes Location provided for therapy services is: Patient requested/Patient preferred Please select the performing region: External Order [[id number]] To loc/pos [facility] [[id number]] Comments Please contact his georgiana at [phone] CHMENT ASSISTANT Reason for Visit * Reason Comments Follow-up * Consultation (Routine) - Closed Specialty Diagnoses / Procedures Referred By Samira yu Referred To Contact Neurology Diagnoses 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 disturbance (HCC) Ganesh Prince MD Phone: tel: fax: [facility] (All Locations) Referral ID Status Reason Start Date Expiration Date V isits Requested Visits Authorized [id number] Closed Specialty Services Required 04/03/2022 05/03/2023 1 1 Encounter Details Date Type Department Care Team (Late st Contact Info) Description 07/03/2022 1:00 PM ENRICHMENT ASSISTANT Office Visit [address] 6th [address] [place] [address] Karina Joseph NP [address] [facility] [id number] [place] [address] 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 disturbance (HCC) Social History Tobacco Use Types Packs/Day Years Used Date Smoking Tobacco: Former Tobacco Cessation:Counseling Given: Not Answered Alcohol Use Standard Drinks/Week Comments Yes 0 (1 standard drink = 0.6 oz pur e alcohol) Sex and Gender Information Value Date Recorded Sex Assigned at Not on file Legal Sex Male 8:13 AM ENRICHMENT ASSISTANT Gender Identity Not on file Sexual Orientation Not on file documented as of this encounter Last Filed Vital Signs Vital Sign Reading Time Taken Comments Blood Pressure 121/76 07/03/2022 1:09 PM ENRICHMENT ASSISTANT Pulse 104 07/03/2022 1:09 PM ENRICHMENT ASSISTANT Temperature 36.5 ??C (97.7 ??F) 07/03/2022 1:09 PM CS T Respiratory Rate - - Oxygen Saturation 97% 07/03/2022 1:09 PM ENRICHMENT ASSISTANT Inhaled Oxygen Concentration - - Weight 84.1 kg (185 lb 8 oz) 07/03/2022 1:09 PM ENRICHMENT ASSISTANT Height 167.6 cm (5' 6 ) 07/03/2022 1:09 PM ENRICHMENT ASSISTANT Body Mass Index 29.94 07/03/2022 1:09 PM ENRICHMENT ASSISTANT documented in this encounter Patient Instructions * Patient Instructions* Karina Joseph NP - 07/03/2022 1:00 PM ENRICHMENT ASSISTANT [facility] Diagnostic [place] TODAY'S VISIT Provider: AIMEE Last (Nurse Practitioner) [...] Program, from The Alzheimer's Association, please call [phone], or you can register online [email or web address]. 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 Legal: No legal concerns were discussed today. RESOURCES FOR ADDITIONAL INFORMATION AND SUPPORT Opportunities to participate in research can be found at: [email or web address] Access TrialArt.com online. For additional assistance, email TrialMatch@[email or web address] or call 235.147.2430 (press 1 for clinical trials). ClinicalTrials.gov is a resource provided by the U.S. National Library of Medicine. You can look upclinical trials (research opportunities) online At clinicaltrials.gov Alzheimer's Association [facility] Chapter: ; (toll free); http://www.alz.org, The Alzheimer's Association 05/03 Helpline provides reliable information and support to all those who need assistance. Call toll-free anytime day or night at . Caregiver Guide: tips for caregivers of people with Alzheimer's dementia, www.smiley.nih.gov/Alzheimers /Publication/Whqexj-glitfk-socbhfaxrw-disease/about-guide [facility], [address] [place] [address], , Occupational Therapists who offers caregiver training, family support, and in home safety assessments at no cost. Memorycarehs[facility]org [facility] Agency on Aging (serving [facility]) http://[facility].[place].org/government/hslaaa.html [facility] Agency on Aging (serving [facility] http://www.mid-eastaaa.org If you need to reach our office, please call our nurse at [phone], option 4, leave a message, this voicemail is checked several times per day. If you need to contact our clinical social worker: Alan Be or Jose Angel Arriola, from the Alzheimer's Association, please call [phone] No future appointments. CHMENT ASSISTANT documented in this encounter Progress Notes * Karina Joseph NP - 07/03/2022 1:00 PM [facility] OFFICE VISIT Karina MCKEONP-BC (Nurse Practitioner) [facility] Department of Neurology Patient Name: GANESH MACIEL Medical Record Number (MRN): [id number] Date of (): 1960 Encounter Date: 07/03/2022 [...] Dementia History: Followed by Dr. Moore and [facility] with diagnosis of early onset Alzheimer Disease, [...] supports for caregivers, discussed availability of our Electrician Apprentice Powerhouse from the Alzheimer's Association ACTIVE PROBLEMS Patient [...] are negative. Medical Records Review: I reviewed [facility] notes and prior Neuropsychometric testing scores. [facility] Neurobehavioral Status Exam Results 09/05/2018 07/21/2019 12/27/2020 12/27/2021 07/03/2022 Repository ICF signed? Yes No No Yes No Verbal Fluency Total Score 14 14 12 (No Data) (No Data) [place] Naming (15 item) Total Score 14 15 [...] Results Component Value Date TSH 2.38 01/28/2017 L4VKEMY 5.1 05/19/2013 Lab Results Component Value Date [...] Sensation was intact to light touch. Coordination Kngfrd-zikp-qgndnr testing was normal. Reflexes Reflexes were symmetric at the biceps, brachioradialis and knees. Gait Gait was slow and decreased arm swing He was mild word finding difficulty fluent throughout the interview and examination. NEUROBEHAVIORAL TESTING REPORT On formal neurobehavioral testing, which took from [id number] , scores were in the normal to mildly impaired range on tests of semantic memory ([place] Naming, verbal fluency). Scores were in the [...] all the time . Neurobehavioral test results: [facility] Neurobehavioral Status Exam Results 09/05/2018 07/21/2019 12/27/2020 12/27/2021 07/03/2022 Repository ICF signed? Yes No No Yes No Verbal Fluency Total Score 14 14 12 (No Data) (No Data) [place] Naming (15 item) Total Score 14 15 [...] Data) - (No Data) Clinical Dementia Rating: [facility] CDR/DIAGNOSIS NEW 09/05/2018 07/21/2019 12/27/2020 12/27/2021 07/03/2022 [...] I will send a referral to [facility] and Medical Social Work. PLAN OF [...] Therapy - Please contact his georgiana at [phone] Referral Priority: Routine Referral Type: Consultation Referral Reason: Specialty Services Required Referral Location: [facility] Requested Specialty: Occupational Therapy Number of [...] Program, from The Alzheimer's Association, please call [phone], or you can register online [email or web address]. 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 Legal: No legal concerns were discussed today. RESOURCES FOR ADDITIONAL INFORMATION AND SUPPORT Opportunities to participate in research can be found at: trialmatch.[email or web address].org Access TrialSPARQtch online. For additional assistance, email TrialMatch@[employer].org or call 323.084.7377 (press 1 for clinical trials). ClinicalTrials.gov is a resource provided by the U.S. National Library of Medicine. You can look upclinical trials (research opportunities) online At clinicaltrials.gov Alzheimer's Association [facility] Chapter: ; (toll free); http://www.alz.org, The Alzheimer's Association 05/03 Helpline provides reliable information and support to all those who need assistance. Call toll-free anytime day or night at . Caregiver Guide: tips for caregivers of people with Alzheimer's dementia, www.smiley.nih.gov/Alzheimers /Publication/Krwtco-fvufgk-qxxnmlplxd-disease/about-guide [facility], [address] [place] [address], , Occupational Therapists who offers caregiver training, family support, and in home safety assessments at no cost. [facility]org [facility] Agency on Aging ([facility]) http://[facility].[place].[facility]/government/hslaaa.html [facility] Agency on Aging (serving [place], [place], [place] and [facility] http://www.[facility].org If you need to reach our office, please call our nurse at [phone], option 4, leave a message, this voicemail is checked several times per day. If you need to contact our clinical social worker: Alna Be or Jose Angel Arriola, from the Alzheimer's Association, please call [phone] No future appointments. I spent 45 minutes,face [...] reflect the currentclinical condition. Karina Joseph MSN, COMMODITIES TRADER-[facility] [address], [address] [place] [address] Cosigned by Martita Love MD PhD at 07/07/2022 4:50 PM ENRICHMENT ASSISTANT CHMENT ASSISTANT CHMENT ASSISTANT documented in this encounter Plan of Treatment [...] 07/03/2022 documented in this encounter Care Teams Operator Command Support Systems Relationship Specialty Start Date End Date Ganesh Prince MD PCP - General 11/28/17 documented as of this encounter
--- OUTSIDE RECORDS SUMMARY | 2024-08-13 05:17 | XMS_ITS | Encounter Summary ---
Author Organization [facility] Address [address] [place] [address] Care Team Providers Care Child Development Consultant Name Role Phone Tommie Lu MD Primary Care Provider + Encounter Details Date Type Department Care Team (Late st Contact Info) Description 02/23/2017 Telephone [facility] [address] [place] [address] Tommie Lu MD [address] [place] [address] Social History Tobacco Use Types Packs/Day Years Used Date Smoking Tobacco: Former Alcohol Use Standard Drinks/Week Comments Yes 0 (1 standard drink = 0.6 oz pur e alcohol) Sex and Gender Information Value Date Recorded Sex Assigned at Not on file Legal 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
--- OUTSIDE RECORDS SUMMARY | 2024-08-13 05:17 | XMS_ITS | Encounter Summary ---
Author Organization [facility] Address [address] [place] [address] Phone Care Team Providers Care Returned Goods Inspector Name Role Phone Ganesh Prince MD Primary Care Provider + [phone] Encounter Details Date Type Department Care Team (Late st Contact Info) Description 09/05/2018 Telephone [facility] Scheduling [address] [place] [address] Lashell Vasques BS Social History Tobacco Use Types Packs/Day Years Used Date Smoking Tobacco: Former Alcohol Use Standard Drinks/Week Comments Yes 0 (1 standard drink = 0.6 oz pur e alcohol) Sex and Gender Information Value Date Recorded Sex Assigned at Not on file Legal Sex Male 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 Card for appt today at 1pm with Dianne Worthington NP. Pt now has [facility] through . DRENS CLUB ATTENDANT documented in this encounter Plan of Treatment Not on file documented as of this encounter Visit Diagnoses Not on filedocumented in this encounter Care Teams Returned Goods Inspector Relationship Specialty Start Date End Date Ganesh Prince MD PCP - General 11/28/17 documented as of this encounter
--- OUTSIDE RECORDS SUMMARY | 2024-08-13 05:17 | XMS_ITS | Encounter Summary ---
Author Organization [facility] Address [address] [place] [address] Care Team Providers Care Pipeline Dispatcher Name Role Phone Ganesh Prince MD Primary Care Provider Reason for Referral * MRI/CAT/PET Scan (Routine) - Closed Specialty Diagnoses / Procedures Referred By Contac t Referred To Contact Radiology Diagnoses Abdominal pain, unspecified abdominal location Procedures CT Abdomen Pelvis W Contrast Ganesh Prince MD Phone: tel: fax: [address] [phone] Referral ID Status Reason Start Date Expiration Date Visits Re quested Visits Authorized [id number] Closed 12/07/2022 01/06/2023 1 1 Reason for Visit * MRI/CAT/PET Scan (Routine) - Closed Specialty Diagnoses / Procedures Referred By Contac t Referred To Contact Radiology Diagnoses Abdominal pain, unspecified abdominal location Procedures CT Abdomen Pelvis W Contrast Ganesh Prince MD Phone: tel: fax: [address] [phone] Referral ID Status Reason Start Date Expiration Date Visits Re quested Visits Authorized [id number] Closed 12/07/2022 01/06/2023 1 1 Encounter Details Date Type Department Care Team (Latest Contact Info) Description 12/07/2022 2:25 PM CDT - 12/07/2022 11:59 PM CDT Hospital Encounter [facility] [address] [place] [id number] Abdominal pain, unspecified abdominal location Discharge Disposition: Discharge to home or self care Social History Tobacco Use Types Packs/Day Years Used Date Smoking Tobacco: Former Alcohol Use Standard Drinks/Week Comments Yes 0 (1 standard drink = 0.6 oz pur e alcohol) Sex and Gender Information Value Date Recorded Sex Assigned at Not on file 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 ??Otherwise, unremarkable. VASCULATURE: Ejzs-wb-exyvanqb aortoiliac atherosclerosis. ?? No abdominal aortic aneurysm. [...] PM T: ??12/07/2022 11:42 PM Report ID: [id number] Reading Location: ??[id number] Procedure Note Isabel, Ganesh Russel, DO - [...] seen within the prostate. Otherwise, unremarkable. VASCULATURE: Rizr-ao-keuffpty aortoiliac atherosclerosis. No abdominal aortic aneurysm. MUSCULOSKELETAL: No acute abnormality. Mild to moderate degenerative changes of the spine and bilateral hip joints. OTHER: No other abnormality. IMPRESSION: 1. No acute intra-abdominal/pelvic abnormality. 2. Additional findings as detailed. THIS IS AN ELECTRONICALLY VERIFIED FINAL REPORT 12/07/2022 11:42 PM - Electronically signed by Ganesh Hall M.D. MF: [email or web address] Report ID: [id number] Reading Location: [place] [address] Ganesh Prince MD IM CT PROCEDURES Final [...] 1 documented in this encounter Care Teams Pipeline Dispatcher Relationship Specialty Start Date End Date Ganesh Prince MD PCP - General 11/28/17 documented as of this encounter
--- OUTSIDE RECORDS SUMMARY | 2024-08-13 05:17 | XMS_ITS | Encounter Summary ---
Author Organization [facility] Address [address] [place] [address] Care Team Providers Care Inter Fold Roll Cutter Name Role Phone Tommie Lu MD Primary Care Provider + Encounter Details Date Type Department Care Team (Late st Contact Info) Description 03/22/2017 3:50 PM CDT - 03/22/2017 11:59 PM CDT Hospital Encounter [facility] [phone] Worthington, Anna Larkin NP [address] [place] [address] Discharge Disposition: Discharge to home or self care Social History Tobacco Use Types Packs/Day Years Used Date Smoking Tobacco: Former Alcohol Use Standard Drinks/Week Comments Yes 0 (1 standard drink = 0.6 oz pur e alcohol) Sex and Gender Information Value Date Recorded Sex Assigned at Not on file Legal Sex Male 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 ACC# ??Date Time ??Exam [id number] Mar 22, 2017 17:05:00 [id number] Neuro 3D Rend sep Modality EXAMINATION: ?? [...] HEBERT M.D. on Mar 27 2017 ??3:31P [id number] Procedure Note Miscellaneous, Not In File - 03/27/2017 LORENZO HEBERT M.D. LEN PETTIT M.D. FINAL REPORT The radiology attending physician has personally reviewed this study, and has reviewed and/or edited this written report and agrees with it. ACC# Date Time Exam [id number] Mar 22, 2017 17:05:00 [id number] Neuro 3D Rend sep Modality EXAMINATION: Association [...] HEBERT M.D. on Mar 27 2017 3:31P [id number] us Not In File Miscellaneous IMG MRI [...] agrees with it. ACC# ??Date Time ??Exam [id number] Mar 22, 2017 17:05:00 [id number] MRI Brain wo and with contrast EXAMINATION: [...] were compared to a normative cohort from [facility]. ??Graphs were sent to [facility] [employer] [facility] [facility]. Left hippocampus volume: 12th percentile, between 1 [...] HEBERT M.D. on Mar 27 2017 ??3:31P [id number] Procedure Note Miscellaneous, Not In File / Provider, MD Sanna - 03/27/2017 LORENZO HEBERT M.D. STEVAN DUVAL M.D. FINAL REPORT The radiology attending physician has personally reviewed this study, and has reviewed and/or edited this written report and agrees with it. ACC# Date Time Exam [id number] Mar 22, 2017 17:05:00 [id number] MRI Brain wo and with contrast EXAMINATION: [...] were compared to a normative cohort from [facility]. Graphs were sent to [facility] [employer] [facility]. Left hippocampus volume: 12th percentile, between 1 [...] HEBERT M.D. on Mar 27 2017 3:31P [id number] us Not In File Miscellaneous IMG MRI PROCEDURES Fin al Result documented in this encounter Visit Diagnoses Not on filedocumented in this encounter Care Teams Inter Fold Roll Cutter Relationship Specialty Start Date End Date Tommie Lu MD [address] [address] PCP - General 11/10/16 11/27/17 documented as of this encounter
--- OUTSIDE RECORDS SUMMARY | 2024-08-13 05:17 | XMS_ITS | Encounter Summary ---
Author Organization [facility] Healthcare Address [address] [place] [address] Care Team Providers Care Manager [employer] Name Role Phone Tommie Lu MD Primary Care Provider + Encounter Details Date Type Department Care Team (Latest Contact Info) Description 01/27/2017 6:48 PM CDT - 01/29/2017 1:56 PM CDT Hospital Encounter [facility] [address] [place] [address] Gage Morgan MD [address] [facility] [address] [place] [address] Gage Alonso MD [address] [place] [address] Discharge Disposition: Discharge to home or self care Social History Tobacco Use Types Packs/Day Years Used Date Smoking Tobacco: Former Alcohol Use Standard Drinks/Week Comments Yes 0 (1 standard drink = 0.6 oz pur e alcohol) Sex and Gender Information Value Date Recorded Sex Assigned at Not on file 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 Dictating: Cristobal Gómez M.D. Service Dt: 01/27/2017 CONSULTATION REPORT FACILITY ID: [facility] CONSULTING PHYSICIAN Kenroy Stinson MD SERVICE REQUESTING CONSULTATION Emergency department. REASON FOR CONSULTATION Possible subarachnoid hemorrhage. 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 There he was reportedly found to be somewhat confused and lightheaded, but there were no direct witnesses available, and subsequently he was taken home and then brought to the emergency department. There a head CT scan was done which was read as concerning for possible subarachnoid hemorrhage in the basal cisterns. The patient was sent to [place] for further evaluation. The patient denies any [...] CDT Cristobal Gómez M.D. Kenroy Stinson M.D. JKG:[facility] #[id number] Editing MT: TD: 01/27/2017 08:33 PM cc: Leticia Maxwell M.D. Joshua Osbun, M.D. Not[facility]ising[facility] PhysicianMD documented in this encounter Plan of [...] Sodium 140 135 - 145 mmol/L [facility] Potassium, pl 4.0 3.3 - 4.9 mmol/L [facility] Chloride 107 97 - 110 mmol/L [facility] CO2 25 22 - 32 mmol/L [facility] BUN 8 8 - 25 mg/dL [facility] Glucose 94 70 - 199 mg/dL [facility] Creatinine 0.84 0.80 - 1.30 mg/dL [facility] Calcium 8.6 8.5 - 10.3 mg/dL [facility] Anion gap 8 2 - 15 mmol/L [facility] Blood specimen (specimen) 01/29/2017 5:47 AM CDT 01/29/2017 6:50 AM CDT us Riaz Ovalle MD LAB BLOOD ORDERABLES Ed ited Result - Final Performing Organization Address [facility]/ZIP Co de Phone Number [facility] Department [place] [address] * RPR, serum (01/28/2017 8:50 PM CDT) RPR Nonreactive [facility] Blood specimen (specimen) 01/28/2017 8:50 PM CDT 01/28/2017 9:39 PM CDT us Riaz Ovalle MD LAB MICROBIOLOGY - GENE RAL ORDERABLES Final Result Performing Organization Address [facility] Co de Phone Number [facility] Department [place] [address] * Vitamin B12 (01/28/2017 8:50 PM CDT) Pathologist [facility] Vitamin B12 249 210 - 900 pg/mL [facility] Blood specimen (specimen) 01/28/2017 8:50 PM CDT 01/28/2017 9:39 PM CDT us Riaz Ovalle MD LAB BLOOD ORDERABLES Ed ited Result - Final Performing Organization Address [facility] Co de Phone Number [facility] Department [place] [address] * HIV-1 and HIV-2 antibody with P24 antigen immunoassay (01/28/2017 8:50 PM CDT) Pathologist [facility] HIV 1/2 ab + p24 ag Nonreactive Nonreactive [facility] Comment:Negative for HIV-1 a ntigen and HIV-1/ HIV-2 antibodies. No laboratory evidence of HIV infection. If acute HIV infection is suspected, consider testing for HIV-1 RNA. Blood specimen (specimen) 01/28/2017 8:50 PM CDT 01/28/2017 9:39 PM CDT us Riaz Ovalle MD LAB MICROBIOLOGY - GENE RAL ORDERABLES Final Result Performing Organization Address [facility]/ZIP Co de Phone Number [facility] Department [place] [address] * Basic metabolic panel (01/28/2017 8:50 PM CDT) Sodium 142 135 - 145 mmol/L [facility] Potassium, pl 4.5 3.3 - 4.9 mmol/L [facility] Chloride 109 97 - 110 mmol/L [facility] CO2 23 22 - 32 mmol/L [facility] BUN 11 8 - 25 mg/dL [facility] Glucose 90 70 - 199 mg/dL [facility] Creatinine 0.87 0.80 - 1.30 mg/dL [facility] Calcium 8.9 8.5 - 10.3 mg/dL [facility] Anion gap 10 2 - 15 mmol/L [facility] Blood specimen (specimen) 01/28/2017 8:50 PM CDT 01/28/2017 9:39 PM CDT us Riaz Ovalle MD LAB BLOOD ORDERABLES Fi nal Result Performing Organization Address [facility] de Phone Number [facility] Department [place] [address] * Basic metabolic panel (01/28/2017 5:02 PM CDT) Sodium 143 135 - 145 mmol/L [facility] Potassium, pl 4.4 3.3 - 4.9 mmol/L [facility] Comment:Hemolyzed; (++); pot assium value may be falsely elevated by as much as 0.3 - 0.5 mmol/L. Suggest redraw and reanalysis. Chloride 110 97 - 110 mmol/L [facility] CO2 23 22 - 32 mmol/L [facility] BUN 10 8 - 25 mg/dL [facility] Glucose 97 70 - 199 mg/dL [facility] Creatinine 0.80 0.80 - 1.30 mg/dL [facility] Calcium 8.5 8.5 - 10.3 mg/dL [facility] Anion gap 10 2 - 15 mmol/L [facility] Blood specimen (specimen) 01/28/2017 5:02 PM CDT 01/28/2017 6:42 PM CDT us Flip Lyn MD LAB BLOOD ORDERABLES Final Re sult Performing Organization Address [facility] Co de Phone Number [facility] [address] * Basic metabolic panel (01/28/2017 3:17 PM CDT) [facility] Sodium 143 135 - 145 mmol/L [facility] Potassium, pl 4.4 3.3 - 4.9 mmol/L [facility] Chloride 109 97 - 110 mmol/L [facility] CO2 25 22 - 32 mmol/L [facility] BUN 9 8 - 25 mg/dL [facility] Glucose 104 70 - 199 mg/dL [facility] Creatinine 0.80 0.80 - 1.30 mg/dL [facility] Calcium 8.6 8.5 - 10.3 mg/dL [facility] Anion gap 9 2 - 15 mmol/L [facility] Blood specimen (specimen) 01/28/2017 3:17 PM CDT 01/28/2017 3:51 PM CDT us Riaz Ovalle MD LAB BLOOD ORDERABLES Fi nal Result Performing Organization Address [facility] Co de Phone Number [facility] [place] [address] * CTA Head W WO Contrast (01/28/2017 4:00 AM CDT) Anatomical Region Laterality Modality Head and Neck N/A Computed Tomogra phy 01/28/2017 4:00 AM CDT Narrative 01/28/2017 4:00 AM CDT TARIK CORTEZ M.D. PHILLY BOWMAN M.D. FINAL REPORT The radiology attending physician has personally reviewed this study, and has reviewed and/or edited this written report and agrees with it. ACC# ??Date Time ??Exam [id number] Jan 27, 2017 23:00:[address] Angio Head w/o ??and ??w cont [id number] Jan 27, 2017 23:00:[address] Angio Neck ACC# ??Date Time ??Exam [id number] Jan 27, 2017 23:00:[address] Angio Head w/o ??and ??w cont [id number] Jan 27, 2017 23:00:[address] Angio Neck EXAMINATION: ?? Computed tomography [...] diameter is approximately 4.8 mm bilaterally. The nfoquw-bn-Ofuavs is complete. The anterior and middle cerebral [...] CORTEZ M.D. on Jan 28 2017 ??2:01P [id number] HARDING M.D. FINAL REPORT The radiology attending physician has personally reviewed this study, and has reviewed and/or edited this written report and agrees with it. Attending: ??CATHY, ??GAGE Requesting: ??VANE, ??CHER Requesting Fax: ?? Attending Fax: ?? Attending ID: ??[id number] Requesting ID: ??[id number] Report To 1 ID: ??[id number] ? Report To 1 Name: ??, ?? Report To 1 FAX: ?? NextGen Order #: ?? Procedure Note Miscellaneous, Not In File - 05/29/2017 TARIK CORTEZ M.D. PHILLY BOWMAN M.D. FINAL REPORT The radiology attending physician has personally reviewed this study, and has reviewed and/or edited this written report and agrees with it. ACC# Date Time Exam [id number] Jan 27, 2017 23:00:[address] Angio Head w/o and w cont [id number] Jan 27, 2017 23:00:[address] Angio Neck ACC# Date Time Exam [id number] Jan 27, 2017 23:00:[address] Angio Head w/o and w cont [id number] Jan 27, 2017 23:00:[address] Angio Neck EXAMINATION: Computed tomography angiography [...] diameter is approximately 4.8 mm bilaterally. The odgyvy-rq-Wonxzp is complete. The anterior and middle cerebral [...] CORTEZ M.D. on Jan 28 2017 2:01P [id number] HARDING M.D. FINAL REPORT The radiology attending physician has personally reviewed this study, and has reviewed and/or edited this written report and agrees with it. Attending: GAGE MORGAN Requesting: CHER YARBROUGH Requesting Fax: Attending Fax: Attending ID: [id number] Requesting ID: [id number] Report To 1 ID: [id number] Report To 1 Name: , Report To [...] agrees with it. ACC# ??Date Time ??Exam [id number] Jan 27, 2017 23:00:[address] Angio Head w/o ??and ??w cont [id number] Jan 27, 2017 23:00:[address] Angio Neck ACC# ??Date Time ??Exam [id number] Jan 27, 2017 23:00:[address] Angio Head w/o ??and ??w cont [id number] Jan 27, 2017 23:00:[address] Angio Neck EXAMINATION: ?? Computed tomography [...] diameter is approximately 4.8 mm bilaterally. The ghpujj-kr-Rltmyc is complete. The anterior and middle cerebral [...] Fax: ?? Attending Fax: ?? Attending ID: ??[id number] Requesting ID: ??[id number] Report To 1 ID: ??[id number] ? Report To 1 Name: ??, ?? Report To 1 FAX: ?? NextGen Order #: ?? Procedure Note Miscellaneous, Not In File - 05/29/2017 Leticia HARDING M.D. FINAL REPORT The radiology attending physician has personally reviewed this study, and has reviewed and/or edited this written report and agrees with it. ACC# Date Time Exam [id number] Jan 27, 2017 23:00:[address] Angio Head w/o and w cont [id number] Jan 27, 2017 23:00:[address] Angio Neck ACC# Date Time Exam [id number] Jan 27, 2017 23:00:[address] Angio Head w/o and w cont [id number] Jan 27, 2017 23:00:[address] Angio Neck EXAMINATION: Computed tomography angiography [...] diameter is approximately 4.8 mm bilaterally. The gcghne-kf-Wytihg is complete. The anterior and middle cerebral [...] YARBROUGH Requesting Fax: Attending Fax: Attending ID: [id number] Requesting ID: [id number] Report To 1 ID: [id number] Report To 1 Name: , Report To 1 FAX: NextGen Order #: Cher Yarbrough MD [facility] CT PROCEDURES Edited Result [...] agrees with it. ACC# ??Date Time ??Exam [id number] Jan 27, 2017 23:00:[address] Abd ??and ??Pelvis with cont EXAMINATION: [...] ESPARZA M.D. on Jan 28 2017 11:37A [id number] ENG M.D. FINAL REPORT The radiology attending physician has personally reviewed this study, and has reviewed and/or edited this written report and agrees with it. Attending: ??CATHY, ??GAGE Requesting: ??VANE, ??CHER Requesting Fax: ?? Attending Fax: ?? Attending ID: ??[id number] Requesting ID: ??[id number] Report To 1 ID: ??[id number] ? Report To 1 Name: ??, ?? Report To 1 FAX: ?? NextGen Order #: ?? Procedure Note Miscellaneous, Not In File - 05/29/2017 MARTHA ESPARZA M.D. PHILLY BOWMAN M.D. FINAL REPORT The radiology attending physician has personally reviewed this study, and has reviewed and/or edited this written report and agrees with it. ACC# Date Time Exam [id number] Jan 27, 2017 23:00:[address] Abd and Pelvis with cont EXAMINATION: [...] ESPARZA M.D. on Jan 28 2017 11:37A [id number] ESPARZA M.D. PHILLY BOWMAN M.D. FINAL REPORT The radiology attending physician has personally reviewed this study, and has reviewed and/or edited this written report and agrees with it. Attending: GAGE MORGAN Requesting: CHER YARBROUGH Requesting Fax: Attending Fax: Attending ID: [id number] Requesting ID: [id number] Report To 1 ID: [id number] Report To 1 Name: , Report To 1 FAX: NextGen Order #: Cher Yarbrough MD IMG CT PROCEDURES Edited Result - Final * Lipid panel (01/28/2017 3:04 AM CDT) Cholesterol 191 30 - 200 mg/dL [facility] Comment: Interpretive Data Desirable: ?<200 mg/dL Borderline high: ??200-239 mg/dL High: ? > or = 240 mg/dL Literature Reference: National Cholesterol Education Program (NCEP) Expert Panel on Detection, Evaluation, and Treatment of High Blood Cholesterol in Adults (Adult Treatment Panel III). ??Circulation 2004; 110:227. Current interpretive data was last revised on 2015. Triglycerides 82 0 - 150 mg/dL [facility] Comment: Interpretive Data Desirable: ? < 150 mg/dL Borderline High: ? 150 - 199 mg/dL High: ?200 - 499 mg/dL Very High: ? > or = 499 mg/dL Literature Reference: See Cholesterol Current interpretive data was last revised on 2015. HDL 54 >=40 mg/dL [facility] Comment: Interpretive Data Less than 40 mg/dL - low; A major risk factor for heart disease. Greater than or equal to 60 mg/dL - High; ??considered protective of heart disease. Literature Reference: See Cholesterol Current interpretive data was last revised on 2015. LDL, calculated 121 10 - 129 mg/dL [facility] Comment: Interpretive Data Optimal: ? < 100 mg/dL Near Optimal: ?100 - 129 mg/dL Borderline High: ?? 130 - 159 mg/dL High: ?160 - 189 mg/dL Very high: ? > or = 190 mg/dL Literature Reference: See Cholesterol Current interpretive data was last revised on 2015. Non-HDL Cholesterol 137 mg/dL [facility] Comment: Interpretive Data When triglycerides are >200 mg/dL, non-HDL C is a secondary target of therapy, with a goal 30 mg/dL higher than the identified LDL-C goal. Reference: ??See Cholesterol Reference. Current interpretive data was last revised 2015. Blood specimen (specimen) 01/28/2017 3:04 AM CDT 01/28/2017 4:47 AM CDT us Sun Fajardo MD LAB BLOOD ORDERABLES Final Result [facility] Department [place] [address] * Hepatic function panel (01/28/2017 3:04 AM CDT) AST 36 10 - 50 Units/L [facility] ALT 23 7 - 55 Units/L [facility] Alk phos 51 40 - 130 Units/L [facility] Bilirubin, total 1.2 0.1 - 1.2 mg/dL [facility] Bilirubin, direct 0.2 0.1 - 0.3 mg/dL [facility] Protein, pl 6.5 6.5 - 8.5 g/dL [facility] Albumin 3.9 3.5 - 5.0 g/dL [facility] Blood specimen (specimen) 01/28/2017 3:04 AM CDT 01/28/2017 4:47 AM CDT Sun Fajardo MD LAB BLOOD ORDERABLES Final Result Performing Organization Address [facility] Co de Phone Number [facility] [place] [address] * (ABNORMAL) Osmolality, blood (01/28/2017 3:04 AM CDT) Pathologist [facility] PT 268(L) 275 - 300 mOsm/kg [facility] Blood specimen (specimen) 01/28/2017 3:04 AM CDT 01/28/2017 3:11 AM CDT Sun Fajardo MD LAB BLOOD ORDERABLES Final Result Performing Organization Address [facility] de Phone Number [facility] [place] [address] * TSH cascade (01/28/2017 3:04 AM CDT) Pathologist [facility] TSH 2.38 0.30 - 4.20 mcIUnit/mL [facility] Comment: Interpretive Data Hyperthyroid: ??<0.1 mcIUnit/mL Hypothyroid: ??>12.0 mcIUnit/mL Current interpretive data was last revised on 00. Blood specimen (specimen) 01/28/2017 3:04 AM CDT 01/28/2017 3:11 AM CDT Sun Fajardo MD LAB BLOOD ORDERABLES Final Result Performing Organization Address [facility] Co de Phone Number [facility] [place] [address] * (ABNORMAL) Basic metabolic panel (01/28/2017 3:04 AM CDT) Pathologist [facility] Sodium 127(L) 135 - 145 mmol/L [facility] Potassium, pl 3.9 3.3 - 4.9 mmol/L [facility] Chloride 95(L) 97 - 110 mmol/L [facility] CO2 22 22 - 32 mmol/L [facility] BUN 5(L) 8 - 25 mg/dL [facility] Glucose 123 70 - 199 mg/dL [facility] Creatinine 0.69(L) 0.80 - 1.30 mg/dL [facility] Calcium 8.5 8.5 - 10.3 mg/dL [facility] Anion gap 10 2 - 15 mmol/L [facility] Blood specimen (specimen) 01/28/2017 3:04 AM CDT 01/28/2017 3:11 AM CDT us Snu Fajardo MD LAB BLOOD ORDERABLES Final Result [facility] Department [place] [address] * XR Chest 1 Vw (01/28/2017 1:35 AM CDT) Anatomical Region Laterality Modality Body, Chest N/A Radiographic María ging 01/28/2017 1:35 AM CDT Narrative 01/28/2017 1:35 AM CDT Leticia ENG M.D. FINAL REPORT The radiology attending physician has personally reviewed this study, and has reviewed and/or edited this written report and agrees with it. ACC# ??Date Time ??Exam [id number] Jan 27, 2017 20:35:00 06314 Chest 1 view Frontal EXAMINATION: ?? Chest [...] ESPARZA M.D. on Jan 28 2017 11:37A [id number] ENG, M.D. FINAL REPORT The radiology attending physician has personally reviewed this study, and has reviewed and/or edited this written report and agrees with it. Attending: ??CATHY, ??GAGE Requesting: ??VANE, ??CHER Requesting Fax: ?? Attending Fax: ?? Attending ID: ??[id number] Requesting ID: ??[id number] Report To 1 ID: ??[id number] ? Report To 1 Name: ??, ?? Report To 1 FAX: ?? NextGen Order #: ?? Procedure Note Miscellaneous, Not In File - 05/29/2017 MARTHA ESPARZA M.D. DERRELL HERNANDEZ M.D. FINAL REPORT The radiology attending physician has personally reviewed this study, and has reviewed and/or edited this written report and agrees with it. ACC# Date Time Exam [id number] Jan 27, 2017 20:35:00 32915 Chest 1 view Frontal EXAMINATION: Chest one [...] ESPARZA M.D. on Jan 28 2017 11:37A [id number] ENG M.D. FINAL REPORT The radiology attending physician has personally reviewed this study, and has reviewed and/or edited this written report and agrees with it. Attending: GAGE MORGAN Requesting: CHER YARBROUGH Requesting Fax: Attending Fax: Attending ID: [id number] Requesting ID: [id number] Report To 1 ID: [id number] Report To 1 Name: , Report To 1 FAX: NextGen Order #: us Cher Yarbrough MD IMG XR PROCEDURES Edited Result - Final * (ABNORMAL) Urinalysis reflex to microscopic (01/28/2017 12:58 AM CDT) Color, ur Straw Yellow [facility] Clarity, ur Clear Clear [facility] Specific gravity, ur 1.010 1.003 - 1.030 [facility] pH, ur 6.0 5.0 - 8.0 [facility] Albumin, ur Negative Trace [facility] Glucose, ur ql 1+(A) Negative [facility] Ketones, ur Negative Negative [facility] Bilirubin, ur Negative Negative [facility] Blood, ur Negative Negative [facility] Urobilinogen, ur <2.0 <2.0 mg/dL [facility] Nitrites, ur Negative Negative [facility] Leukocyte esterase, ur Negative Negative [facility] Urine 01/28/2017 12:5 8 AM CDT 01/28/2017 1:13 AM CDT Cher Yarbrough MD LAB URINE ORDERABLES Final Resu lt [facility] [place] [address] * DISCHARGE LABORATORY CUMULATIVE REPORT (01/28/2017) Provider Scanning LAB BLOOD ORDERABLES Final Res ult * (ABNORMAL) Basic metabolic panel (01/27/2017 9:36 PM CDT) Sodium 123(L) 135 - 145 mmol/L [facility] Potassium, pl 3.6 3.3 - 4.9 mmol/L [facility] Chloride 91(L) 97 - 110 mmol/L [facility] CO2 19(L) 22 - 32 mmol/L [facility] BUN 6(L) 8 - 25 mg/dL [facility] Glucose 132 70 - 199 mg/dL [facility] Creatinine 0.63(L) 0.80 - 1.30 mg/dL [facility] Calcium 8.3(L) 8.5 - 10.3 mg/dL [facility] Anion gap 13 2 - 15 mmol/L [facility] Blood specimen (specimen) 01/27/2017 9:36 PM CDT 01/27/2017 10:10 PM CDT us Cher Yarbrough MD LAB BLOOD ORDERABLES Final Resu lt Performing Organization Address [facility] Co de Phone Number [facility] [place] [employer] [place] [address] * (ABNORMAL) Creatine kinase (CK), total (01/27/2017 9:36 PM CDT) CK 361(H) 30 - 300 Units/L [facility] Blood specimen (specimen) 01/27/2017 9:36 PM CDT 01/27/2017 10:10 PM CDT us Cher Yarbrough MD LAB BLOOD ORDERABLES Final Resu lt Performing Organization Address [facility] Co de Phone Number [facility] [employer] [place] [address] * Magnesium (01/27/2017 9:36 PM CDT) Magnesium 1.5 1.4 - 2.5 mg/dL [facility] Blood specimen (specimen) 01/27/2017 9:36 PM CDT 01/27/2017 10:10 PM CDT us Cher Yarbrough MD LAB BLOOD ORDERABLES Final Resu lt Performing Organization Address [facility] [place] [address] * Phosphorus (01/27/2017 9:36 PM CDT) Phosphorus, pl 2.7 2.3 - 4.5 mg/dL [facility] Blood specimen (specimen) 01/27/2017 9:36 PM CDT 01/27/2017 10:10 PM CDT us Cher Yarbrough MD LAB BLOOD ORDERABLES Final Resu lt [facility] [place] [place] [address] * Osmolality, urine (01/27/2017 9:22 PM CDT) Osmo, ur 408 51 - 1,499 mOsm/kg [facility] Urine 01/27/2017 9:22 PM CDT 01/27/2017 9:32 PM CDT Cher Yarbrough MD LAB URINE ORDERABLES Final Resu lt Performing Organization Address [facility] Co de Phone Number [facility] [place] [address] * Drug screen, urine (01/27/2017 9:22 PM CDT) Amphetamines, Class None detected [facility] Comment: Interpretive Data Immunoassay Screen cutoff level 500 ng/mL. Samples containing greater than 500 ng/mL of amphetamine/methamphetamine or other cross-reacting substances are reported as presumptive and submitted for confirmatory testing. See separate confirmatory results for final interpretation.Results are to be used for medical purposes only. ? Current interpretive data was last revised 2015. Barbiturates, Class None detected [facility] Comment: Interpretive Data Immunoassay Screen cutoff level [...] revised on 2015. Phencyclidine, ur None detected [facility] Comment: Interpretive Data Immunoassay Screen cutoff [...] ORDERABLES Final Resu lt Performing Organization Address City/[facility]/ZIP Co de Phone Number [facility] Department [place] [address] * B Check Sample (01/27/2017 8:30 PM CDT) ABO Rh A Positive [facility] HCLL OTHER 01/27/2017 8:30 PM CDT 01/27/2017 8:36 PM CDT Notinfile Unknown LAB BLOOD ORDERABLES Final Res ult Performing Organization Address [facility] Co de Phone Number [facility] [place] [address] * Ammonia (01/27/2017 8:21 PM CDT) Ammonia 26 5 - 50 mcmol/L [facility] Blood specimen (specimen) 01/27/2017 8:21 PM CDT 01/27/2017 8:29 PM CDT Cher Yarbrough MD LAB BLOOD ORDERABLES Final Resu lt Performing Organization Address [facility] Co de Phone Number [facility] Department [place] [address] * Type and screen (01/27/2017 7:04 PM CDT) Pathologist [facility] Sara, indirect Negative [facility] ABO Rh A Positive [facility] Blood specimen (specimen) 01/27/2017 7:04 PM CDT 01/27/2017 7:10 PM CDT Result [facility] Cher Yarbrough MD LAB BLOOD BANK TEST ORDERABLES Edited Result - Final Performing Organization Address [facility] de Phone Number [facility] [place] [place] [address] * Hemoglobin A1c (01/27/2017 7:04 PM CDT) [facility] Hgb A1C 5.1 4.0 - 6.0 % [facility] Estimated Average Glucose 100 mg/dL [facility] Comment: The ADA recommends reporting an estimated Average Glucose (eAG) with all Hemoglobin A1c results using the equation derived from a study of 507 normal and diabetic adults. ??Minority populations were underrepresented and children were not included. ?? (Diabetes Care 31:1736-9644, 2007). ??The eAG is not equivalent to a fasting glucose. Blood specimen (specimen) 01/27/2017 7:04 PM CDT 01/27/2017 7:28 PM CDT Cher Yarbrough MD LAB BLOOD ORDERABLES Edited Res ult - Final Performing Organization Address [facility] de Phone Number [facility] [place] [address] * Troponin I (01/27/2017 7:04 PM CDT) [facility] Troponin I <0.03 0.00 - 0.03 ng/mL [facility] Comment: Interpretive Data Serial determinations are recommended for the diagnosis of myocardial infarction (Third [place] Definition of Myocardial Infarction. ??J Am Matias Cardiol 2012;60:1581-98). Current interpretive data was last revised on 13. Blood specimen (specimen) 01/27/2017 7:04 PM CDT 01/27/2017 7:23 PM CDT Cher Yarbrough MD LAB BLOOD ORDERABLES Final Resu lt Performing Organization Address City/[facility]/ZIP Co de Phone Number [facility] [place] [address] * (ABNORMAL) Basic metabolic panel (01/27/2017 7:04 PM CDT) Pathologist [facility] Sodium 124(L) 135 - 145 mmol/L [facility] Potassium, pl 3.2(L) 3.3 - 4.9 mmol/L [facility] Chloride 91(L) 97 - 110 mmol/L [facility] CO2 21(L) 22 - 32 mmol/L [facility] BUN 7(L) 8 - 25 mg/dL [facility] Glucose 123 70 - 199 mg/dL [facility] Creatinine 0.68(L) 0.80 - 1.30 mg/dL [facility] Calcium 8.1(L) 8.5 - 10.3 mg/dL [facility] Anion gap 12 2 - 15 mmol/L [facility] Blood specimen (specimen) 01/27/2017 7:04 PM CDT 01/27/2017 7:23 PM CDT Cher Yarbrough MD LAB BLOOD ORDERABLES Final Resu lt Performing Organization Address City/[facility]/ZIP Co de Phone Number [facility] Department [place] [address] * (ABNORMAL) CBC without differential (01/27/2017 7:04 PM CDT) Pathologist [facility] WBC 6.89 3.80 - 9.90 K/cumm [facility] RBC 3.85(L) 4.30 - 5.80 M/cumm [facility] Hgb 12.7(L) 13.0 - 17.5 g/dL [facility] Hct 34.2(L) 38.9 - 50.3 % [facility] MCV 88.8 81.3 - 96.4 fL [facility] MCH 33.0 27.1 - 33.3 pg [facility] MCHC 37.1(H) 32.3 - 35.7 g/dL [facility] RDW CV 11.3 11.1 - 14.9 % [facility] RDW SD 36.2 35.7 - 48.1 fL [facility] NRBC 0.0 0.0 - 0.2 % [facility] NRBC abs 0.00 0.00 - 0.01 K/cumm [facility] Plt 158 150 - 400 K/cumm [facility] MPV 10.3 9.1 - 12.3 fL [facility] Blood specimen (specimen) 01/27/2017 7:04 PM CDT 01/27/2017 7:23 PM CDT us Cher Yarbrough MD LAB BLOOD ORDERABLES Final Resu lt [facility] [place] [address] documented in this encounter Visit Diagnoses Not on filedocumented in this encounter Care Teams Manager Aerospace Relationship Specialty Start Date End Date Tommie Lu MD [address] [facility] [place] [address] PCP - General 11/10/16 11/27/17 documented as of this encounter
--- OUTSIDE RECORDS SUMMARY | 2024-08-13 05:17 | XMS_ITS | Encounter Summary ---
Author Organization [facility] Address [address] [place] [address] Phone Care Team Providers Care Rn Iv Therapy Name Role Phone Ganesh Prince MD Primary Care Provider + [phone] Reason for Visit * Reason Comments Follow-up Encounter Details Date Type Department Care Team (Late st Contact Info) Description 01/23/2024 10:30 AM CDT Office Visit [facility] [address] 6th [address] [place] [address] Dianne Worthington NP [address] [place] [address] 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 Additional Resources and Support: Alzheimer's Association [facility] Chapter: ; (toll free); http://www.alz.org, The Alzheimer's Association 05/03 Helpline provides reliable information and support to all those who need assistance. Call toll-free anytime day or night at . [facility]: [facility] is to extend and improve quality time at home for people living with dementia and their care partners, or Memorycare[facility].org, They provide family foster care case manager support, education and skills. [facility] will make it easier for you to enhance your skills and adapt your home setting to meet the ever-changing demands of caregiving. Silvia Moraes R.N. Prototype Machine Operator Alzheimer's Association [address] [place] [address] Toll Free: [phone] ext [phone] Email: The best way to reach our team is via My Chart, this is a secure way for us to communicate about your health care. Please call The My Chart Support Desk: [phone] for help with My Chart, or [phone] to obtain a link for access. We [...] two days per week. She looked at [employer]abe[employer] Day program and didn't think he would [...] on file Medical Records Review: I reviewed [facility] notes and prior Neuropsychometric testing scores. PHYSICAL [...] AM 10/17/2023 7:00 AM 01/23/2024 10:31 AM [facility] Neurobehavioral Status Exam Results Repository ICF signed? No No Yes No No Yes Verbal Fluency Total Score 14 12 2 2 [place] Naming (15 item) Total Score 15 15 [...] AM 10/21/2023 7:00 PM 01/23/2024 10:31 AM [facility] CDR/DIAGNOSIS NEW Repository ICF signed? No Yes [...] conservative measures are not effective. Referred to Prototype Machine Operator Vero Moraes for resources and support, recommend [...] Additional Resources and Support: Alzheimer's Association of [place] Chapter: ; (toll free); http://www.alz.org, The Alzheimer's Association 05/03 Helpline provides reliable information and support to all those who need assistance. Call toll-free anytime day or night at . [facility]: [facility] is to extend and improve quality time at home for people living with dementia and their care partners, or Memory[facility]org, They provide family foster care case manager support, education and skills. [facility] will make it easier for you to enhance your skills and adapt your home setting to meet the ever-changing demands of caregiving. Silvia Moraes R.N. Prototype Machine Operator Alzheimer's Association [address] [place] [address] Toll Free: [phone] ext [phone] Email: The best way to reach our team is via My Chart, this is a secure way for us to communicate about your health care. Please call The My Chart Support Desk: [phone] for help with My Chart, or [phone] to obtain a link for access. We [...] 01/03/2024 added in this encounter Care Teams Rn Iv Therapy Relationship Specialty Start Date End Date Ganesh Prince MD PCP - General 11/28/17 documented as of this encounter
--- OUTSIDE RECORDS SUMMARY | 2024-08-13 05:17 | XMS_ITS | Encounter Summary ---
Author Organization [facility] Address [address] [place] [address] Phone Care Team Providers Care Medical Asst Name Role Phone Ganesh Prince MD Primary Care Provider + [phone] Encounter Details Date Type Department Care Team (Late st Contact Info) Description 01/20/[address] 6th [address] [place] [address] Silvia Moraes Social History Tobacco Use Types Packs/Day Years Used Date Smoking Tobacco: Former Alcohol Use Standard Drinks/Week Comments Yes 0 (1 standard drink = 0.6 oz pur e alcohol) Sex and Gender Information Value Date Recorded Sex Assigned at Not on file 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 She???s the PCG for her , Ganesh, who has AD. They live in [place], [place]. Ganesh is pacing a lot and [...] caregiver counseling offered through [facility]. Action Plan: 1) Murtaza will contact [employer] to find out if they???re eligible for any assistance. 2) Murtaza will explore ADC options. A list was provided. 3) Murtaza will consider using a caregiver support group. 4) Murtaza will consider using free caregiver counseling offered through [facility]. Contact info for Noelle Mcrae was provided. documented in this encounter Plan of Treatment Not on file documented as of this encounter Visit Diagnoses Not on filedocumented in this encounter Care Teams Medical Asst Relationship Specialty Start Date End Date Ganesh Prince MD PCP - General 11/28/17 documented as of this encounter
--- OUTSIDE RECORDS SUMMARY | 2024-08-13 05:17 | XMS_ITS | Encounter Summary ---
Author Organization [facility] Address [address] [place] [address] Phone Care Team Providers Care Director Software Development Name Role Phone Ganesh Prince MD Primary Care Provider [phone] Encounter Details Date Type Department Care Team (Late st Contact Info) Description 12/29/2021 Orders Only [facility] [address] 6th [address] [place] [address] [place], Karina Lu NP [address] [facility] [phone] [place] [address] Social History Tobacco Use Types Packs/Day Years Used Date Smoking Tobacco: Former Alcohol Use Standard Drinks/Week Comments Yes 0 (1 standard drink = 0.6 oz pur e alcohol) Sex and Gender Information Value Date Recorded Sex Assigned at Not on file 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
--- OUTSIDE RECORDS SUMMARY | 2024-08-13 05:17 | XMS_ITS | Encounter Summary ---
Author Organization [facility] Address [address] [place] [address] Care Team Providers Care Bi Manager Name Role Phone Tommie Lu MD Primary Care Provider + Encounter Details Date Type Department Care Team (Late st Contact Info) Description 02/21/2017 7:45 AM CDT Lab [facility] [address] [place] [address] Memory loss Social History Tobacco Use Types Packs/Day Years Used Date Smoking Tobacco: Former Alcohol Use Standard Drinks/Week Comments Yes 0 (1 standard drink = 0.6 oz pur e alcohol) Sex and Gender Information Value Date Recorded Sex Assigned at Not on file 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
--- OUTSIDE RECORDS SUMMARY | 2024-08-13 05:17 | XMS_ITS | Encounter Summary ---
Author Organization [facility] Address [address] [place] [address] Care Team Providers Care Independent Jeweler Name Role Phone Tommie Lu MD Primary Care Provider + Encounter Details Date Type Department Care Team (Late st Contact Info) Description 02/15/2017 Telephone [facility] [address] [place] [address] Ghassan Harris PA [address] [facility] [place] [address] Social History Tobacco Use Types Packs/Day Years Used Date Smoking Tobacco: Former Alcohol Use Standard Drinks/Week Comments Yes 0 (1 standard drink = 0.6 oz pur e alcohol) Sex and Gender Information Value Date Recorded Sex Assigned at Not on file Legal Sex Male 8:13 AM BURNER HAND Gender Identity Not on file Sexual Orientation Not on file documented as of this encounter Miscellaneous Notes * Telephone Encounter - Kelli Freeman - 02/15/2017 9:33 AM CDT Order/records faxed to [phone]; they will review the information and call pt to schedule * Telephone Encounter - Erika Thrasher - 02/15/2017 8:41 AM CDT wupn Refer to neurology to dr regan rothman has seen before. Dx memory loss please call [phone] when calling patient. Ordered my mb documented in this encounter Plan of Treatment Not on file documented as of this encounter Visit Diagnoses Not on filedocumented in this encounter Care Teams Independent Jeweler Relationship Specialty Start Date End Date Tommie Lu MD [address] [place] [address] PCP - General 11/10/16 11/27/17 documented as of this encounter
--- OUTSIDE RECORDS SUMMARY | 2024-08-13 05:17 | XMS_ITS | Encounter Summary ---
Author Organization [facility] Address [address] [place] [address] Phone Care Team Providers Care Compliance Quality Performance Analyst Name Role Phone Ganesh Prince MD Primary Care Provider + [phone] Encounter Details Date Type Department Care Team (Late st Contact Info) Description 12/28/2020 Telephone [facility] [facility] [facility] First Floor [address] [place] [address] Jose Angel Arriola, GASOLINE LOCOMOTIVE CRANE OPERATOR [address] [place] [address] Social History Tobacco Use Types Packs/Day Years Used Date Smoking Tobacco: Former Alcohol Use Standard Drinks/Week Comments Yes 0 (1 standard drink = 0.6 oz pur e alcohol) Sex and Gender Information Value Date Recorded Sex Assigned at Not on file 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 This social services specialist had a call with patient's . She is interested in a support group. I spoke with her about the [facility]. She would prefer an in-person group and I told her the [facility] Chapter of the Alzheimer's Association has some groups that are transitioning to in person tejas milton ours is not at this time. He is starting to get angry with her at times like after the doctor'sappointment yesterday. We discussed the services of [facility] and she was interested so I made a referral. She also needs ideas to engage him as he doesn't want to do much. We agreed she will FU with me as needed. See email below. GABBI Arrieta: Thank you for speaking with my today. My cell phone, if needed, is [phone]. I made a referral to [facility] and someone should contact you. https://memorycarehs.org/ Here is the support group list. They have not yet split it out to reflect which will be virtual versus in person since this transition is new. My group is the [facility]. [email or web address].o rg/media/[email or web address]-Jzxuebu-Hzwqktm-Groups.pdf Please reach out as needed and helpful! Jose Angel Rome Volunteer for Memory and Aging Project Research: [email or web address] documented in this encounter Plan of Treatment Not on file documented as of this encounter Visit Diagnoses Not on filedocumented in this encounter Care Teams Compliance Quality Performance Analyst Relationship Specialty Start Date End Date Ganesh Prince MD PCP - General 11/28/17 documented as of this encounter
--- OUTSIDE RECORDS SUMMARY | 2024-08-13 05:17 | XMS_ITS | Encounter Summary ---
Author Organization [facility] Address [address] [place] [address] Phone Care Team Providers Care Duplicating Machine Mechanic Name Role Phone Ganesh Prince MD Primary Care Provider [phone] Encounter Details Date Type Department Care Team (Late st Contact Info) Description 10/25/[address] Floor [address] [place] [address] Ginny Sheffield Social History Tobacco Use Types Packs/Day Years Used Date Smoking Tobacco: Former Alcohol Use Standard Drinks/Week Comments Yes 0 (1 standard drink = 0.6 oz pur e alcohol) Sex and Gender Information Value Date Recorded Sex Assigned at Not on file Legal 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
--- OUTSIDE RECORDS SUMMARY | 2024-08-13 05:17 | XMS_ITS | Encounter Summary ---
Author Organization [facility] Address [address] [place] [address] Phone Care Team Providers Care Exotic Dancer Name Role Phone Ganesh Prince MD Primary Care Provider + [phone] Reason for Visit * Reason Onset Date Comments Behavior Problem 07/31/2023 Encounter Details Date Type Department Care Team (Late st Contact Info) Description 07/31/[address] [place] [address] Saima Rivers CMA Behavior Problem Social History Tobacco Use Types Packs/Day Years Used Date Smoking Tobacco: Former Alcohol Use Standard Drinks/Week Comments Yes 0 (1 standard drink = 0.6 oz pur e alcohol) Sex and Gender Information Value Date Recorded Sex Assigned at Not on file Legal Sex Male 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 wants SHOE STICKS REPAIRER to give pt something else because what pt is taking now doesn't seem to be working. They need something else. SHOP MANAGER documented in this encounter Plan of Treatment Not on file documented as of this encounter Visit Diagnoses Not on filedocumented in this encounter Care Teams Exotic Dancer Relationship Specialty Start Date End Date Ganesh Prince MD PCP - General 11/28/17 documented as of this encounter
--- OUTSIDE RECORDS SUMMARY | 2024-08-13 05:17 | XMS_ITS | Encounter Summary ---
Author Organization [facility] Address [address] [place] [address] Phone Care Team Providers Care Internet Marketing Coordinator Name Role Phone Ganesh Prince MD Primary Care Provider [phone] Reason for Visit * Consultation (Routine) - Closed Specialty Diagnoses / Procedures Referred By Samira t Referred To Contact Neurology Diagnoses 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 disturbance (HCC) Ganesh Prince MD Phone: tel: fax: [facility] (All Locations) Referral ID Status Reason Start Date Expiration Date V isits Requested Visits Authorized [id number] Closed Specialty Services Required 03/19/2020 03/14/2021 12 12 Encounter Details Date Type Department Care Team (Late st Contact Info) Description 03/25/2020 2:30 PM CDT Telemedicine [facility] [address] [place] [address] 6th Floor [address] [place] [id number] Dianne Worthington NP [address] [place] [address] 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 disturbance (CMS/HCC) Social History Tobacco Use Types Packs/Day Years Used Date Smoking Tobacco: Former Alcohol Use Standard Drinks/Week Comments Yes 0 (1 standard drink = 0.6 oz pur e alcohol) Sex and Gender Information Value Date Recorded Sex Assigned at Not on file Legal Sex Male 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 Driving: [...] participate in research can be found at: trialBeat My Waste Quotetch.nubelo.org Access TrialAasonn online. For additional assistance, email or call [phone] (press 1 for clinical trials). ClinicalTrials.gov is a resource provided by the U.S. National Library of Medicine. You can look upclinical trials (research opportunities) online At clinicaltrials.gov Alzheimer's Association [facility] Chapter: ; (toll free); http://www.alz.org, The Alzheimer's Association 05/03 Helpline provides reliable information and support to all those who need assistance. Call toll-free anytime day or night at . Caregiver Guide: tips for caregivers of people with Alzheimer's dementia, www.smiley.nih.gov/Alzheimers /Publication/Nutjta-orkedb-plvkwyhtsa-disease/about-guide [facility], [address] [place] [address], , Occupational Therapists who offers caregiver training, family support, and in home safety assessments at no cost. Memorycarehs.org [facility] Agency on Aging (serving [facility]) http://[facility].[place].[facility]/government/hslaaa.html [facility] Agency on Aging (serving [place], [place], [place] and [facility] http://www.[email or web address] hospitalaaa.org If you need to reach our office, please call our nurse at [phone], option 4, leave a message, this voicemail is checked several times per day. If you need to contact our social service manager: Alan Be or Jose Angel Arriola, from the Alzheimer's Association, please call [phone] Future Appointments Date Time Provider Department Center 07/12/2020 4:30 PM Flores Moore MD PhD [facility] CAM 6C NL documented in this encounter Progress Notes * Dianne Worthington NP - 03/25/2020 2:30 PM CDT [facility] VIDEO via ZOOM VISIT SHY Watson (Nurse Practitioner) [facility] Department of Neurology Patient Name: GANESH MACIEL Medical Record Number (MRN): [id number] Date of (): 1960 Encounter Date: 03/25/2020 [...] is nervous/anxious. Medical Records Review: I reviewed [facility] notes and prior Neuropsychometric testing scores. [facility] Neurobehavioral Status Exam Results 09/05/2018 07/21/2019 Repository ICF signed? Yes No Verbal Fluency Total Score 14 14 [place] Naming (15 item) Total Score 14 15 [...] Results Component Value Date TSH 2.38 01/28/2017 X2PRUXV 5.1 05/19/2013 Lab Results Component Value Date [...] compared prior testing scores. Clinical Dementia Rating: [facility] CDR/DIAGNOSIS NEW 09/05/2018 07/21/2019 Repository ICF signed? [...] Program, from The Alzheimer's Association, please call [phone], or you can register online [email or web address]. Driving: We discussed safe driving, and there [...] online. For additional assistance, email or call [phone] (press 1 for clinical trials). ClinicalTrials.gov is a resource provided by the U.S. National Library of Medicine. You can look upclinical trials (research opportunities) online At clinicaltrials.gov Alzheimer's Association [facility] Chapter: ; (toll free); http://www.alz.org, The Alzheimer's Association 05/03 Helpline provides reliable information and support to all those who need assistance. Call toll-free anytime day or night at . Caregiver Guide: tips for caregivers of people with Alzheimer's dementia, www.smiley.nih.gov/Alzheimers /Publication/Nzegcy-aignok-ucjqknylad-disease/about-guide [facility], [address] [place]. [address], , Occupational Therapists who offers caregiver training, family support, and in home safety assessments at no cost. Memorycarehs.org [facility] Agency on Aging (serving [facility]) http://[facility].[place].org/government/hslaaa.html [facility] Agency on Aging (serving [facility] and [facility] http://www.waldo hospitalaaa.org If you need to reach our office, please call our nurse at [phone], option 4, leave a message, this voicemail is checked several times per day. If you need to contact our social service manager: Alan Be or Jose Angel Arriola, from the Alzheimer's Association, please call [phone] Future Appointments Date Time Provider Department Center 07/12/2020 4:30 PM Flores Moore MD PhD [facility] CAM 6C NL This was a telemedicine visit with Ganesh Maciel and which took place via Real-time video connection (Seagate Technologyuch, Zoom or similar). During the visit, I was located at home office in the state [facility] and the patient was located home in [place]. The session started at 1430 and ended [...] in a telephone or video visitduring the [address] emergency[address] After being given an opportunity to ask questions about and discuss this type of visit, the patient verbally consented to proceeding with the telephone / video visit. The patient understands that this service replaces an office visit and they may be billed and/or responsible for any applicable copayments. SHY Watson [facility] [address], [address] [place] [address] documented in this encounter Plan of Treatment [...] 03/25/2020 documented in this encounter Care Teams Internet Marketing Coordinator Relationship Specialty Start Date End Date Ganesh Prince MD PCP - General 11/28/17 documented as of this encounter
--- OUTSIDE RECORDS SUMMARY | 2024-08-13 05:17 | XMS_ITS | Encounter Summary ---
Author Organization [facility] Address [address] [place] [address] Phone Care Team Providers Care Stogy Maker Name Role Phone Ganesh Prince MD Primary Care Provider [phone] Reason for Referral * Neurology (Routine) - Closed Specialty Diagnoses / Procedures Referred By Samira t Referred To Contact Neurology Diagnoses 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 disturbance (HCC) Procedures EEG Flores Moore MD PhD [address] [place] [address] Phone: tel: fax:[phone] Referral ID Status Reason Start Date Expiration Date Visits Re quested Visits Authorized [id number] Closed 07/21/2019 01/29/2021 1 1 DESK SPECIALIST Reason for Visit * Reason Comments Return Patient * Neurology (Routine) - Closed Specialty Diagnoses / Procedures Referred By Samira yu Referred To Contact Neurology Diagnoses no v/m set-up to lvm to cnf appt clara r/m ltr snt 07/15/19 mw 9 MTH EITHER NEY OR CW Procedures RETURN Ganesh Prince MD [address] [place] [address] Phone: tel: fax: Flores Moore MD PhD [address] [place] [address] Phone: tel: fax:[phone] Referral ID Status Reason Start Date Expiration Date Visits Re quested Visits Authorized [id number] Closed 07/21/2019 01/29/2021 1 1 Encounter Details Date Type Department Care Team (Late st Contact Info) Description 07/21/2019 4:30 PM HELP DESK SPECIALIST Office Visit [facility] [address] [facility] 6th [place] [address] [place] [address] Flores Moore MD PhD [address] [place] [address] 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 disturbance (CMS/HCC) (Primary Dx) Social History Tobacco Use Types Packs/Day Years Used Date Smoking Tobacco: Former Alcohol Use Standard Drinks/Week Comments Yes 0 (1 standard drink = 0.6 oz pur e alcohol) Sex and Gender Information Value Date Recorded Sex Assigned at Not on file Legal Sex Male 8:13 AM HELP DESK SPECIALIST Gender Identity Not on file Sexual Orientation Not on file documented as of this encounter Last Filed Vital Signs Vital Sign Reading Time Taken Comments Blood Pressure 117/64 07/21/2019 4:13 PM HELP DESK SPECIALIST Pulse 93 07/21/2019 4:13 PM HELP DESK SPECIALIST Temperature - - Respiratory Rate - - Oxygen Saturation - - Inhaled Oxygen Concentration - - Weight 84.9 kg (187 lb 3.2 oz) 07/21/2019 4:13 P M HELP DESK SPECIALIST Height 167.6 cm (5' 6 ) 07/21/2019 4:13 PM HELP DESK SPECIALIST Body Mass Index 30.21 07/21/2019 4:13 PM HELP DESK SPECIALIST documented in this encounter Patient Instructions * Patient Instructions* Flores Moore MD PhD - 07/21/2019 4:30 PM HELP DESK SPECIALIST [facility] - VISIT SUMMARY & PATIENT INSTRUCTIONS For Mr. Ganesh Maciel (: 1960) Courtesy of, Dr. Flores Moore MD, PhD [facility], Departments of Neurology and Psychiatry Clinic (Nurse Pilar Miner) FEEDBACK/DIAGNOSTIC ISSUES REGARDING BRAIN HEALTH Thank you for coming to the [facility] for your neurological assessment today. Based on [...] for your future (Living Will, Power of Creamery Worker for Health Care). and I have recommended that you implement a durable power of assistant city attorney or guardianship. Level of Care Recommendation: You can continue to live independently. Community Organizations: I have recommended that you establish contact with the Alzheimer's Association to discuss available resources, including information concerning your diagnosis and the things that you and your family can do to help to manage symptoms associated with this disease. Please [phone], or (toll free), or visit http://www.alz.org. RESEARCH STUDIES Participation in research studies was not discussed today. FOLLOW-UP You should return to see Dr. Burns Or JARRED Adorno in about a year. Please make your appointment as you leave today, or call [phone]. You should continue to see your primary care doctor at regular intervals. Flores Moore MD, PhD Consumer Insights Specialist of Neurology and Psychiatry [facility] [address] [place] [address], [address], [place] [address] DESK SPECIALIST documented in this encounter Ordered Prescriptions Prescription Sig Dispense Quantity Refills Last Filled Start Date End Date escitalopram (LEXAPRO) 20 mg tabletIndications: Anxiety with Depression Take 1 tablet (20 mg total) by mouth daily 90 tablet 3 07/21/2019 08/09/2020 documented in this encounter Progress Notes * Flores Moore MD PhD - 07/21/2019 4:30 PM CST [facility] RETURN PATIENT VISIT Flores Moore MD, PhD [facility] Departments of Neurology and Psychiatry Patient Name: GANESH MACIEL Medical Record Number (MRN): [id number] Date of (): 1960 Encounter Date: 07/21/2019 [...] good health. Pt was last seen at [facility] 08/2018. Their diagnosis then was EOAD, anxiety, [...] up several community activities. Does not attend scientologist on his own. He drives without dings, accidents, or tickets. Prefers CS drive. Pt does not make a list for shopping. Does need to double back for a forgotten item. His function at home is moderately impaired. He is able manage simple chores (e.g., vacuuming). He is no longer able to manage routine home maintenance: yard work, architectural engineer, air blower, weed merry. Difficulty figuring out equipment event with instructions. Watches the same reruns on TV. Plays golf in different league than CS. They are going to have different partners but play golf on the same nights moving forward. Bowls with ofxzajq-vi-npf Qweek and now only X4dzgrq because he feels like he is a [...] file Gets together: Not on file Attends synagogue service: Not on file Active member of [...] On formal neurobehavioral testing, which took from 0398-3383, scores were in the normal range on tests of semantic memory ([place] Naming, verbal fluency). Scores were in the [...] interpretation and reporting of these results took 9319-2705 minutes, including time spent comparing current performance to previous test results (when available). Verbal Fluency Score (total # animals): 14 [place] Naming Test 15 Item [place] Naming Total Score (out of 15): 15 [...] SUMMARY OF RELEVANT MEDICAL RECORDS/ TESTING 2019 [facility] note reviewed. Medications reviewed. Lab Results Component Value Date VITB12 389 02/21/2017 Lab Results Component Value Date TSH 2.38 01/28/2017 P0OXVCZ 5.1 05/19/2013 Lab Results Component Value Date [...] Order Specific Question: Procedure performed at: Answer: [facility] Order Specific Question: EEG Type: Answer: Routine [...] an as-needed basis. --- I spent from 1580-8575 in direct contact with Mr. Maciel and the CS, excluding time spent interpreting and reporting the results of cognitive testing. >50% of this time was spent counselling concerning the diagnosis, recommended investigations and potential prognosis / expected course of disease. Flores Moore M.D., Ph.D. Consumer Insights Specialist of Neurology and Psychiatry [facility] [address] [place] [address], [address], [place] [address] DESK SPECIALIST DESK SPECIALIST documented in this encounter Miscellaneous Notes * Assessment & Plan Note - Flores Moore MD PhD - 07/21/2019 5:29 PM HELP DESK SPECIALIST Associated Problem(s): Early onset Alzheimer's dementia without [...] off the Meclizine and/or dramamine if possible. DESK SPECIALIST documented in this encounter Plan of Treatment Not on file documented as of this encounter Results * EEG (09/29/2019 2:16 PM HELP DESK SPECIALIST) Anatomical Region Laterality Modality EEG Narrative 09/29/2019 4:21 PM HELP DESK SPECIALIST Routine EEG Report Patient Name: Ganesh Maciel [facility] Medical Record Number (MRN): [id number] [facility] Record: [id number] Date of (): 1960 EEG Date: 09/29/2019 [...] 32 channel EEG recording acquired on a [employer] EEG-1200 acquisition system. Scalp electrodes were placed [...] documented as of this encounter Care Teams Stogy Maker Relationship Specialty Start Date End Date Ganesh Prince MD PCP - General 11/28/17 documented as of this encounter
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
--- OUTSIDE RECORDS SUMMARY | 2024-08-13 05:17 | XMS_ITS | Encounter Summary ---
Author Organization [facility] Healthcare Address [address] [place] [address] Care Team Providers Care Surveillance Sensor Operator Name Role Phone Tommie Lu MD Primary Care Provider + Encounter Details Date Type Department Care Team (Late st Contact Info) Description 03/27/2017 6:58 PM CDT - 03/27/2017 11:59 PM CDT Hospital Encounter [facility] Tommie Lu MD [address] [place] [address] Discharge Disposition: Discharge to home or self care Social History Tobacco Use Types Packs/Day Years Used Date Smoking Tobacco: Former Alcohol Use Standard Drinks/Week Comments Yes 0 (1 standard drink = 0.6 oz pur e alcohol) Sex and Gender Information Value Date Recorded Sex Assigned at Not on file Legal Sex Male 8:13 AM SET ILLUSTRATOR Gender Identity Not on file Sexual Orientation [...] AM CDT) 03/27/2017 5:00 AM CDT Narrative [facility] - 03/27/2017 5:00 AM CDT ?SLEEP DISORDER REPORT Patient: ??GAGE MACIEL ? Service Date: 03/27/2017 Account: ??[id number] ? Room No: : ?1960 ? Patient Type: ?ANC Attend.: ??Tommie Lu M.D. ?Admit Date: ??03/27/2017 Dict.: ?Nabeel Muhammad M.D., D.MKelsey ?Disch. Date: 03/27/2017 ?COMPREHENSIVE POLYSOMNOGRAM REQUESTING PHYSICIAN Dr. Tommie Lu. INDICATIONS FOR STUDY Mr. Maciel is a 56-year-old with chief complaints of snoring, witnessed stoppage of breath while sleeping, unrefreshing sleep, and daytime fatigue. Patient's [place] Sleepiness Score 4. PAST MEDICAL HISTORY Depression/panic [...] surgery, positive pressure therapy and dental ?devices. [place] A: ??Obstructive sleep apnea G47.33 [place] B: ??Polysomnography [id number]. Electronically Authenticated and Edited by: Nabeel Muhammad MD On 04/02/2017 02:40 PM CDT Nabeel Muhammad M.D., Shira [place]/hermila Job #: ??[id number] DD: ??03/30/2017 13:23 TD: ??03/31/2017 06:44 us Not In File Miscellaneous SLEEP CENTER ORDERABLE S Final Result [facility] documented in this encounter Visit Diagnoses Not on filedocumented in this encounter Care Teams Surveillance Sensor Operator Relationship Specialty Start Date End Date Tommie Lu MD [address] [place] [address] PCP - General 11/10/16 11/27/17 documented as of this encounter
--- OUTSIDE RECORDS SUMMARY | 2024-08-13 05:17 | XMS_ITS | Encounter Summary ---
Author Organization [facility] Healthcare Address [address] [place] [address] Care Team Providers Care Mfg Assoc Name Role Phone Ganesh Prince MD Primary Care Provider [phone] Reason for Referral * Neurology (Routine) - Closed Specialty Diagnoses / Procedures Referred By Contac t Referred To Contact Neurology Diagnoses 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 disturbance (HCC) Procedures EEG Karina Joseph NP Phone: tel: fax: Referral ID Status Reason Start Date Expiration Date Visits Re quested Visits Authorized [id number] Closed 12/29/2021 01/28/2023 1 1 Reason for Visit * Neurology (Routine) - Closed Specialty Diagnoses / Procedures Referred By Contac t Referred To Contact Neurology Diagnoses 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 disturbance (HCC) Procedures EEG Karina Joseph NP Phone: tel: fax: Referral ID Status Reason Start Date Expiration Date Visits Re quested Visits Authorized [id number] Closed 12/29/2021 01/28/2023 1 1 Encounter Details Date Type Department Care Team (Latest Contact Info) Description 01/13/2022 12:38 PM CDT - 01/13/2022 11:59 PM CDT Hospital [facility]counter [facility] [address] [place] [address] Ariel Truong Early onset Alzheimer's dementia without [...] on file Legal Sex Male 8:13 AM LOCKMAKER Gender Identity Not on file Sexual Orientation [...] Routine EEG Report Patient Name: Ganesh Stephenson [facility] Medical Record Number (MRN): [id number] [facility] Record: [id number] Date of (): 1960 EEG Date: 01/13/2022 Ordering Provider: Karina Joseph NP CC: Ganesh Prince Start Time: 01/13/2022 1:36:51 PM ? End Time: 01/13/2022 1:57:53 PM Introduction: Mr. Stephenson is a 61 y.o. male with a history of memory difficulty, presenting with seizure-like symptoms. The EEG was performed to evaluate for seizures. This is a 32 channel EEG recording acquired on a [employer] EEG-1200 acquisition system. Scalp electrodes were placed [...] Attending: Alpesh Nance MD PhD Karina Joseph ENGINEERING DESIGN SUPERVISOR NEUROLOGY ORDERABLES Final Result documented in this encounter Visit Diagnoses Diagnosis 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 disturbance (HCC) documented in this encounter Care Teams Mfg Assoc Relationship Specialty Start Date End Date Ganesh Prince MD PCP - General 11/28/17 documented as of this encounter
--- OUTSIDE RECORDS SUMMARY | 2024-08-13 05:17 | XMS_ITS | Encounter Summary ---
Author Organization [facility] Healthcare Address [address] [place] [address] Care Team Providers Care Psychologist Clinical Name Role Phone Ganesh Prince MD Primary Care Provider [phone] Encounter Details Date Type Department Care Team (Late st Contact Info) Description 12/07/2022 2:30 PM CDT Lab [address] [address] Social History Tobacco Use Types Packs/Day Years Used Date Smoking Tobacco: Former Alcohol Use Standard Drinks/Week Comments Yes 0 (1 standard drink = 0.6 oz pur e alcohol) Sex and Gender Information Value Date Recorded Sex Assigned at Not on file Legal Sex Male 8:13 AM SUPPORT SERVICES COORDINATOR Gender Identity Not on file Sexual [...] 0.90 0.60 - 1.30 mg/dL [facility] Blood 12/07/2022 2:36 PM CDT 12/07/2022 2:40 PM CDT us Ganesh Prince MD LAB BLOOD ORDERABLES Final R esult [facility] [address] [facility] [place] [address] documented in this encounter Visit Diagnoses Not on filedocumented in this encounter Care Teams Psychologist Clinical Relationship Specialty Start Date End Date Ganesh Prince MD PCP - General 11/28/17 documented as of this encounter
--- OUTSIDE RECORDS SUMMARY | 2024-08-13 05:17 | XMS_ITS | Encounter Summary ---
Author Organization [facility] Address [address] [place] [address] Care Team Providers Care Medical Insurance Coding Specialist Name Role Phone Tommie Yañez MD Primary Care Provider + Reason for Referral * Consultation (Routine) - Closed Specialty Diagnoses / Procedures Referred By Samira yu Referred To Contact Neurology Diagnoses Memory loss Ghassan Harris PA Phone: tel: fax: Referral ID Status Reason Start Date Expiration Date V isits Requested Visits Authorized [id number] Closed Specialty Services Required 02/15/2017 08/14/2017 1 1 Reason for Visit * Reason Comments Hospital follow up- low sodium levels Encounter Details Date Type Department Care Team (Late st Contact Info) Description 02/15/2017 8:00 AM CDT Office Visit [facility] [address] [facility] [address] [place] [address] Ghassan Harris PA [address] [place] [address] [address] [place] [address] Hospital discharge follow-up (Primary Dx); Alcoholism /alcohol abuse (CMS/HCC); Hyponatremia; Multiple-type hyperlipidemia; Memory loss Social History Tobacco Use Types Packs/Day Years Used Date Smoking Tobacco: Former Alcohol Use Standard Drinks/Week Comments Yes 0 (1 standard drink = 0.6 oz pur e alcohol) Sex and Gender Information Value Date Recorded Sex Assigned at Not on file Legal Sex Male 8: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 [facility] on January 27 her altered mental status, lethargy and shaking. There he was found hypertensive, tremulous, diaphoretic, and confused. He is found to be hyponatremicto 122. CT head showed features concerning for subarachnoid hemorrhage. [facility] for severe hyponatremia and alcohol withdrawal. CTA of head there revealed no acute intracranial abnormalities or bleeding. The patient has never had withdrawal symptoms or DTs in the past. He had been drinking 8-10 beers daily for the past few months. Overall workup at [facility] was negative. 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 He is Sleeping well but not rested [...] Hospital records reviewed 2. Alcoholism /alcohol abuse ([facility]) Comments: He is abstaining from alcohol 3. [...] 03/25/2020 added in this encounter Care Teams Medical Insurance Coding Specialist Relationship Specialty Start Date End Date Tommie Yañez MD [address] [place] [address] PCP - General 11/10/16 11/27/17 documented as of this encounter
--- OUTSIDE RECORDS SUMMARY | 2024-08-13 05:17 | XMS_ITS | Encounter Summary ---
Author Organization [facility] Address [address] [place] [address] Phone Care Team Providers Care Emergency Room Technician Name Role Phone Ganesh Prince MD Primary Care Provider + [phone] Reason for Visit * Reason Comments Alzheimer's Disease Encounter Details Date Type Department Care Team (Late st Contact Info) Description 04/24/2024 3:15 PM CDT Office Visit [facility] [address] 6th [address] [place] [address] Dianne Worthington NP [address] [place], [place] [id number] [phone] 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 disturbance [...] on file 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 Registration Rep [employer] [address] [place] [address] Toll Free: [phone] ext [phone] Email: The best way to reach our team is via My Chart, this is a secure way for us to communicate about your health care. Please call The My Chart Support Desk: [phone] for help with My Chart, or [phone] to obtain a link for access. We [...] encounter Progress Notes * Ander, Dianne Larkin, DESK TOP PUBLISHER - 04/24/2024 3:15 PM CDT [facility] [...] conservative measures are not effective. Referred to Registration Rep Vero Moraes for resources and support, recommend [...] 0.5 mg TID. Caregiver support: met with Registration Rep Vero Moraes for resources and support Review [...] on file Medical Records Review: I reviewed [facility] notes and prior Neuropsychometric testing scores. Lab [...] AM 10/17/2023 7:00 AM 01/23/2024 10:31 AM [facility] Neurobehavioral Status Exam Results Repository ICF signed? No No Yes No No Yes Verbal Fluency Total Score 14 12 -- -- -- 2 2 [place] Naming (15 item) Total Score 15 15 [...] AM 10/21/2023 7:00 PM 01/23/2024 10:31 AM [facility] CDR/DIAGNOSIS NEW Repository ICF signed? No Yes [...] giving lorazepam 0.5 mg TID. met with Registration Rep Vero Moraes for resources and support. 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 Registration Rep [employer] [address] [place] [address]. [place] [address] Toll Free: [phone] ext [phone] Email: The best way to reach our team is via My Chart, this is a secure way for us to communicate about your health care. Please call The My Chart Support Desk: [phone] for help with My Chart, or [phone] to obtain a link for access. We [...] Consider placement Hospice/ palliative evaluation met with Registration Rep Vero Moraes for resources and support documented [...] documented as of this encounter Care Teams Emergency Room Technician Relationship Specialty Start Date End Date Ganesh Prince MD PCP - General 11/28/17 documented as of this encounter
--- OUTSIDE RECORDS SUMMARY | 2024-08-13 05:17 | XMS_ITS | Encounter Summary ---
Author Organization [facility] Address [address] [place] [address] Care Team Providers Care Non Licensed Nuclear Plant Operator Name Role Phone Ganesh Prince MD Primary Care Provider [phone] Reason for Visit * Reason Comments Cerumen Impaction Encounter Details Date Type Department Care Team (Late st Contact Info) Description 12/20/2021 12:30 PM CDT Office Visit [facility] [address] [place] [address] Abel Nieves, PA [address] [place], [place] [id number] Acute otitis media, unspecified otitis media type (Primary Dx); Impacted cerumen of left ear Social History Tobacco Use Types Packs/Day Years Used Date Smoking Tobacco: Former Alcohol Use Standard Drinks/Week Comments Yes 0 (1 standard drink = 0.6 oz pur e alcohol) Sex and Gender Information Value Date Recorded Sex Assigned at Not on file 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
--- OUTSIDE RECORDS SUMMARY | 2024-08-13 05:17 | XMS_ITS | Encounter Summary ---
Author Organization [facility] Healthcare Address [address] [place] [address] Care Team Providers Care Turret Lathe Set Up Operator Name Role Phone Ganesh Prince MD Primary Care Provider [phone] Reason for Referral * Neurology (Routine) - Closed Specialty Diagnoses / Procedures Referred By Contac t Referred To Contact Neurology Diagnoses 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 disturbance (HCC) Procedures EEG Flores Moore MD PhD [address] [place] [id number] Phone: tel: fax: Referral ID Status Reason Start Date Expiration Date Visits Re quested Visits Authorized [id number] Closed 07/21/2019 01/29/2021 1 1 EAR 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 ENGINEER Reason for Visit * Neurology (Routine) - Closed Specialty Diagnoses / Procedures Referred By Contac t Referred To Contact Neurology Diagnoses 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 disturbance (HCC) Procedures EEG Flores Moore MD PhD [address] [address] Phone: tel: fax: Referral ID Status Reason Start Date Expiration Date Visits Re quested Visits Authorized [id number] Closed 07/21/2019 01/29/2021 1 1 Encounter Details Date Type Department Care Team (Latest Contact Info) Description 09/29/2019 1:00 PM NUCLEAR 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 ENGINEER - 09/29/2019 11:59 PM NUCLEAR 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 ENGINEER Hospital Encounter [facility] [address] [place] [address] Flores Moore MD PhD [address] [place] [address] Jaquan Hwang Early onset Alzheimer's dementia without [...] on file Legal Sex Male 8:13 AM 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 Gender Identity Not on file Sexual [...] Diagnosis Comments EEG Routine 09/29/2019 2:16 PM NUCLEAR 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 ENGINEER 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 disturbance (CMS/HCC) documented in this encounter Results * EEG (09/29/2019 2:16 PM NUCLEAR 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 ENGINEER) Anatomical Region Laterality Modality EEG Narrative 09/29/2019 4:21 PM NUCLEAR 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 ENGINEER Routine EEG Report Patient Name: Ganesh Stephenson [facility] Medical Record Number (MRN): [id number] Rodolfo Helm Record: [id number] Date of (): 1960 EEG Date: 09/29/2019 [...] 32 channel EEG recording acquired on a [employer] EEG-1200 acquisition system. Scalp electrodes were placed [...] (HCC) documented in this encounter Care Teams Turret Lathe Set Up Operator Relationship Specialty Start Date End Date Ganesh Prince MD PCP - General 11/28/17 documented as of this encounter
--- OUTSIDE RECORDS SUMMARY | 2024-08-13 05:17 | XMS_ITS | Encounter Summary ---
Author Organization [facility] of [facility] Address [address] [place] [address] Phone Care Team Providers Care Kindergarten Classroom Teacher Name Role Phone Ganesh Prince MD Primary Care Provider [phone] Reason for Referral * Neurology (Routine) - Closed Specialty Diagnoses / Procedures Referred By Samira yu Referred To Contact Neurology Diagnoses 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 disturbance (HCC) Procedures EEG Yelitza Joseph NP Phone: tel: fax: Referral ID Status Reason Start Date Expiration Date Visits Re quested Visits Authorized [id number] Closed 12/29/2021 01/28/2023 1 1 Reason for Visit * Consultation (Routine) - Closed Specialty Diagnoses / Procedures Referred By Samira yu Referred To Contact Neurology Diagnoses 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 disturbance (HCC) Ganesh Prince MD Phone: tel: fax: [facility] (All Locations) Referral ID Status Reason Start Date Expiration Date V isits Requested Visits Authorized [id number] Closed Specialty Services Required 12/19/2021 01/18/2023 1 1 Encounter Details Date Type Department Care Team (Late st Contact Info) Description 12/27/2021 2:30 PM CDT Office Visit [facility] [address] [place] [address] 6th Floor [address] [place] [address] Yelitza Joseph NP [address] [facility] [phone] [place] [address] 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 disturbance [...] on file 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 Legal: No legal concerns were discussed today. RESOURCES FOR ADDITIONAL INFORMATION AND SUPPORT Opportunities to participate in research can be found at: trialmatch.Timetovisit.org Access TrialEvent Farm online. For additional assistance, email or call [phone] (press 1 for clinical trials). ClinicalTrials.gov is a resource provided by the U.S. National Library of Medicine. You can look upclinical trials (research opportunities) online At clinicaltrials.gov Alzheimer's Association [facility] Chapter: ; (toll free); http://www.alz.org, The Alzheimer's Association 05/03 Helpline provides reliable information and support to all those who need assistance. Call toll-free anytime day or night at . Caregiver Guide: tips for caregivers of people with Alzheimer's dementia, www.smiley.nih.gov/Alzheimers /Publication/Nlbwnj-tgiwzr-dsdznmmzvo-disease/about-guide [facility], [address] [place], [place]. [id number], , Occupational Therapists who offers caregiver training, family support, and in home safety assessments at no cost. Memorycarehs.org [facility] Agency on Aging (serving [facility]) http://[facility].[place].org/government/hslaaa.html [facility] Agency on Aging (serving [facility] and [facility] http://www.[facility]aaa.org If you need to reach our office, please call our nurse at [phone], option 4, leave a message, this voicemail is checked several times per day. If you need to contact our social media analyst: Alan Be or Jose Angel Arriola, from the Alzheimer's Association, please call [phone] No future appointments. documented in this encounter Ordered Prescriptions Prescription Sig Dispense Quantity Refills Last Filled Start Date End Date memantine (Namenda Titration Fernando) tablet pack Use as directed for first month 1 each 12/27/2021 2 documented in this encounter Progress Notes * Yelitza Joseph NP - 12/27/2021 2:30 PM CDT [facility] OFFICE VISIT Yelitza REAL-NAVEEN (Nurse Practitioner) [facility] Department of Neurology Patient Name: GANESH MACIEL Medical Record Number (MRN): [id number] Date of (): 1960 Encounter Date: 12/27/2021 [...] Dementia History: Followed by Dr. Moore and [facility] with diagnosis of early onset [...] supports for caregivers, discussed availability of our Process Treater from the Alzheimer's Association ACTIVE PROBLEMS Patient [...] memory loss. Medical Records Review: I reviewed [facility] notes and prior Neuropsychometric testing scores. [facility] Neurobehavioral Status Exam Results 09/05/2018 07/21/2019 12/27/2020 12/27/2021 Repository ICF signed? Yes No No Yes Verbal Fluency Total Score 14 14 12 (No Data) [place] Naming (15 item) Total Score 14 15 [...] Results Component Value Date TSH 2.38 01/28/2017 [id number] 5.1 05/19/2013 Lab Results Component Value Date [...] Sensation was intact to light touch. Coordination Llekqs-hzck-ejmijm testing was normal. Reflexes Reflexes were symmetric at the biceps, brachioradialis and knees. Gait Gait was slow and poor balance He was fluent throughout the interview and examination. NEUROBEHAVIORAL TESTING REPORT On formal neurobehavioral testing, which took from 6817-5202 , scores were in the normal to mildly impaired range on tests of semantic memory ([place] Naming, verbal fluency). Scores were in the [...] items on the GDS. Neurobehavioral test results: [facility] Neurobehavioral Status Exam Results 09/05/2018 07/21/2019 12/27/2020 12/27/2021 Repository ICF signed? Yes No No Yes Verbal Fluency Total Score 14 14 12 (No Data) [place] Naming (15 item) Total Score 14 15 [...] 0 (No Data) - Clinical Dementia Rating: [facility] CDR/DIAGNOSIS NEW 09/05/2018 07/21/2019 12/27/2020 [...] we can send a referral into [facility] solutions. Our social work team printed off [...] Program, from The Alzheimer's Association, please call [phone], or you can register online [email or web address]. 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 Legal: No legal concerns were discussed today. RESOURCES FOR ADDITIONAL INFORMATION AND SUPPORT Opportunities to participate in research can be found at: trialmatch.alz.org Access TrialMatch online. For additional assistance, email or call [phone] (press 1 for clinical trials). ClinicalTrials.gov is a resource provided by the U.S. National Library of Medicine. You can look upclinical trials (research opportunities) online At clinicaltrials.gov Alzheimer's Association [facility] Chapter: ; (toll free); http://www.alz.org, The Alzheimer's Association 05/03 Helpline provides reliable information and support to all those who need assistance. Call toll-free anytime day or night at . Caregiver Guide: tips for caregivers of people with Alzheimer's dementia, www.smiley.nih.gov/Alzheimers /Publication/Rqlucw-dfudzf-dzqvtwktin-disease/about-guide [facility], [address] [place] [address]. [address], , Occupational Therapists who offers caregiver training, family support, and in home safety assessments at no cost. Memorycarehs.org [facility] Agency on Aging (serving [facility]) http://[facility].[place].[facility]/government/[facility]aaa.html [facility] Agency on Aging (serving [facility] and [facility] http://www.[facility].org If you need to reach our office, please call our nurse at [phone], option 4, leave a message, this voicemail is checked several times per day. If you need to contact our social media analyst: Alan Be or Jose Angel Arriola, from the Alzheimer's Association, please call [phone] No future appointments. I spent 45 minutes,face [...] reflect the currentclinical condition. Yelitza Joseph MSN, BOAT CAMP OPERATOR-BC [facility] [address] [facility], [address] [place] [address] documented in this encounter Miscellaneous Notes * [...] Routine EEG Report Patient Name: Ganesh Maciel [facility] Medical Record Number (MRN): [id number] [facility] Record: [id number] Date of (): 1960 EEG Date: 01/13/2022 Ordering Provider: Yelitza Joseph NP CC: Ganesh Prince Start Time: 01/13/2022 1:36:51 PM ? End Time: 01/13/2022 1:57:53 PM Introduction: Mr. Maciel is a 61 y.o. male with a history of memory difficulty, presenting with seizure-like symptoms. The EEG was performed to evaluate for seizures. This is a 32 channel EEG recording acquired on a CyberSettle EEG-1200 acquisition system. Scalp electrodes were placed [...] 12/27/2021 documented in this encounter Care Teams Kindergarten Classroom Teacher Relationship Specialty Start Date End Date Ganesh Prince MD PCP - General 11/28/17 documented as of this encounter
--- OUTSIDE RECORDS SUMMARY | 2024-08-13 05:17 | XMS_ITS | Encounter Summary ---
Author Organization [facility] Address [address] [place] [address] Phone Care Team Providers Care Oncology Technician Name Role Phone Ganesh Prince MD Primary Care Provider [phone] Reason for Visit * Neurology (Routine) - Closed Specialty Diagnoses / Procedures Referred By Contac t Referred To Contact Neurology Diagnoses 1 YR F/U Procedures RETURN Ganesh Prince MD [address] [place] [address] Phone: tel: fax: Flores Moore MD PhD [address] [place] [address] Phone: tel: fax: Referral ID Status Reason Start Date Expiration Date Visits Re quested Visits Authorized [id number] Closed 07/12/2020 01/21/2022 1 1 Encounter Details Date Type Department Care Team (Late st Contact Info) Description 12/27/2020 4:00 PM CDT Office Visit [facility] [address] [facility] 6th [place] [address] [place] [address] Flores Moore MD PhD [address] [place] [address] (Fax) 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 disturbance (CMS/HCC) (Primary Dx) Social History Tobacco Use Types Packs/Day Years Used Date Smoking Tobacco: Former Alcohol Use Standard Drinks/Week Comments Yes 0 (1 standard drink = 0.6 oz pur e alcohol) Sex and Gender Information Value Date Recorded Sex Assigned at Not on file 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 Ganesh Maciel (: 1960) Courtesy of, Dr. Flores Moore MD, PhD [facility], Departments of Neurology and Psychiatry Clinic (Nurse Pilar Miner) FEEDBACK/DIAGNOSTIC ISSUES REGARDING BRAIN HEALTH Thank you for coming to the [facility] for your neurological assessment today. Based on [...] for your future (Living Will, Power of Rental Sales Associate for Health Care). and I have recommended that you implement a durable power of attorney law clerk or guardianship. Level of Care Recommendation: You can continue to live independently. Community Organizations: I have recommended that you establish contact with the Alzheimer's Association to discuss available resources, including information concerning your diagnosis and the things that you and your family can do to help to manage symptoms associated with this disease. Please [phone], or (toll free), or visit http://www.alz.org. -- referral; Jose Angel Arriola, caregiver support groups RESEARCH STUDIES Participation in research studies was not discussed today. FOLLOW-UP You should return to see NEUROPSYCHOLOGIST in about a year. Please make your appointment as you leave today, or call [phone]. You should continue to see your primary care doctor at regular intervals. Flores Moore MD, PhD Bar Examiner of Neurology and Psychiatry [facility] [address] [place] [address], [address], [place] [address] documented in this encounter Progress Notes * Flores Moore MD PhD - 12/27/2020 4:00 PM CDT [facility] RETURN PATIENT VISIT Flores Moore MD, PhD [facility] Departments of Neurology and Psychiatry Patient Name: GANESH MACIEL Medical Record Number (MRN): [id number] Date of (): 1960 Encounter Date: 12/27/2020 [...] health. Pt was last seen at [facility] 03/2020. Their diagnosis then was EOAD (2019: CDR 1, SB 9). The plan then was to continue Aricept 10 and Lexapro 20 daily. He returns today for follow-up. Interval hx: Tolerating Aricept 10m g QAM well, no side effects. Tolerating Lexapro 20 without issue. Mood ok. CS has help from large family. 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 [employer] business so pt goes with someone for [...] --Familiar geography ok, able to drive to [email or web address]. --Dwells in the past. Judgment and problem [...] has given up several community activities. Attends Taoist weekly but participation is decreased.He drives without difficulty weekly to [email or web address]. No dings, accidents, tickets. Otherwise CS prefers [...] Gatherings with Friends and Family: ??? Attends Scientology Services: ??? Active Member of Clubs or [...] On formal neurobehavioral testing, which took from 4616-5617, scores were in the borderline range on tests of semantic memory ([place] [...] to previous test results (when available). [facility] Neurobehavioral Status Exam Results 09/05/2018 07/21/2019 12/27/2020 Repository ICF signed? Yes No No Verbal Fluency Total Score 14 14 12 [place] Naming (15 item) Total Score 14 15 [...] 0 (No Data) Clinical Dementia Rating [facility] CDR/DIAGNOSIS NEW 09/05/2018 07/21/2019 12/27/2020 Repository ICF [...] MEDICAL RECORDS/ TESTING 2018 and 2019 [facility] notes Medications reviewed. Lab Results Component Value Date VITB12 389 02/21/2017 Lab Results Component Value Date TSH 2.38 01/28/2017 B2XFMXC 5.1 05/19/2013 CSF testing - borderline for [...] an as-needed basis. --- I spent from [id number]; [phone] in direct contact with Mr. Maciel and [...] separately reportable services. Flores Moore M.D., Ph.D. Bar Examiner of Neurology and Psychiatry [facility] [address] [place] [address], [address] [address] documented in this encounter Miscellaneous Notes * [...] 12/27/2021 added in this encounter Care Teams Oncology Technician Relationship Specialty Start Date End Date Ganesh Prince MD PCP - General 11/28/17 documented as of this encounter
--- OUTSIDE RECORDS SUMMARY | 2024-08-13 05:17 | XMS_ITS | Encounter Summary ---
Author Organization [facility] Healthcare Address [address] [place] [address] Care Team Providers Care Digital Design Engineer Name Role Phone Ganesh Prince MD Primary Care Provider [phone] Encounter Details Date Type Department Care Team (Late st Contact Info) Description 12/06/2022 Telephone [facility] [address] [place] [address] Zara Blackburn RT Social History Tobacco Use Types Packs/Day Years Used Date Smoking Tobacco: Former Alcohol Use Standard Drinks/Week Comments Yes 0 (1 standard drink = 0.6 oz pur e alcohol) Sex and Gender Information Value Date Recorded Sex Assigned at Not on file 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
--- OUTSIDE RECORDS SUMMARY | 2024-08-13 05:17 | XMS_ITS | Encounter Summary ---
Author Organization [facility] Healthcare Address [address] [place] [address] Care Team Providers Care Laboratory Sample Carrier Name Role Phone Ganesh Prince MD Primary Care Provider [phone] Reason for Visit * Reason Comments Fall Fall head injury Encounter Details Date Type Department Care Team (Late st Contact Info) Description 07/22/2024 3:42 AM STUD SHEEP FARMER - 07/22/2024 7:51 AM STUD SHEEP FARMER Emergency [facility] Emergency Department [address] [place] [address] Yoanna Ugarte MD [address] [place] [address] Closed head injury, initial encounter (Primary Dx) Discharge Disposition: Discharge to home or self care Social History Tobacco Use Types Packs/Day Years Used Date Smoking Tobacco: Former Alcohol Use Standard Drinks/Week Comments Yes 0 (1 standard drink = 0.6 oz pur e alcohol) Sex and Gender Information Value Date Recorded Sex Assigned at Not on file Legal Sex Male 8:13 AM STUD SHEEP FARMER Gender Identity Not on file Sexual Orientation Not on file documented as of this encounter Last Filed Vital Signs Vital Sign Reading Time Taken Comments Blood Pressure 106/69 07/22/2024 6:00 AM STUD SHEEP FARMER Pulse 74 07/22/2024 6:00 AM STUD SHEEP FARMER Temperature 36.9 ??C (98.4 ??F) 07/22/2024 1 2:22 AM STUD SHEEP FARMER Respiratory Rate 18 07/22/2024 5:00 AM STUD SHEEP FARMER Oxygen Saturation 95% 07/22/2024 6:00 AM STUD SHEEP FARMER Inhaled Oxygen Concentration - - Weight 72.1 kg (158 lb 15.2 oz) 024 12:22 AM STUD SHEEP FARMER Height 167.6 cm (5' 5.98 ) 07/22/2024 1 2:22 AM STUD SHEEP FARMER Body Mass Index 25.67 07/22/2024 12:22 AM STUD SHEEP FARMER documented in this encounter Discharge Instructions * Discharge Instructions* Yoanna Ugarte MD - 07/22/2024 6:[address] imaging of head is negative. The lab work was otherwise benign. Take all medicines as prescribed. Return if worse or as needed. SHEEP FARMER * Attachments The following attachments cannot be sent through Care Everywhere. * Head Injury (Adult) (Kazakh) documented in this encounter Medications at Time [...] Head/neck Head/neck injury location: Head Incident location: long-term Time since incident: 8 hours Arrived directly [...] 63-year-old male presenting with head injury at [facility] unit, unwitnessed. Per , patient has shake her than usual. Patient has a history of dementia due to alcoholism. He did have a head bleed in the past as well as heat stroke. Head CT does not show any acute changes. Labs are within normal limits. Patient can be safely discharged back to [facility] unit. 6:53 AM Rechecked the patient- The [...] Specialty: Internal Medicine [address] [place] [address] Next Steps: Call in 1 week(s) Instructions: as needed Disposition: Discharged Diagnosis: Closed head injury, initial encounter Yoanna Ugarte MD 07/22/24 0659 SHEEP FARMER * Harinder James RN - 07/22/2024 12:19 AM CST Pt brought to ED by s/p fall at [facility] facility states pt hit his head no loc pt resident [facility] SHEEP FARMER documented in this encounter Plan of Treatment Not on file documented as of this encounter Procedures Procedure Name Priority Date/Time Associated Diagnosis Comments URINALYSIS AND REFLEX TO MICROSCOPIC AND CULTURE STAT 07/22/2024 7:[address] HEAD WO CONTRAST ED 07/22/2024 5 :47 AM STUD SHEEP FARMER EGFR STAT 07/22/2024 12:43 AM STUD SHEEP FARMER DIFFERENTIAL AUTO STAT 07/22/2024 12: 43 AM STUD SHEEP FARMER CBC WITH AUTO DIFFERENTIAL STAT 07/22/2024 12:43 AM STUD SHEEP FARMER COMPREHENSIVE METABOLIC PANEL STAT 07/22/2024 12:43 AM STUD SHEEP FARMER documented in this encounter Results * Urinalysis reflex to microscopic and culture Urine (07/22/2024 7:21 AM STUD SHEEP FARMER) Color, ur Yellow Yellow Clarity, ur Clear [...] tendency for uric acid stone formation. Source: [facility] [employer] Current Interpretive Data was last revised on [...] [facility] ([facility]) Urine 07/22/2024 7:21 AM STUD SHEEP FARMER 07/22/2024 7:23 AM STUD SHEEP FARMER us Saad[facility]LESTER[facility] LAB MICROBIOLOGY - GENERAL ORDE HUNTER Final Result [facility]ON [facility] ([place]) 1 [facility] Department [place] [address] * CT Head WO Contrast (07/22/2024 5:47 AM STUD SHEEP FARMER) Anatomical Region Laterality Modality Head and Neck N/A Computed Tomogra phy 07/22/2024 6:37 AM STUD SHEEP FARMER Narrative 07/22/2024 6:39 AM STUD SHEEP FARMER EXAM DESCRIPTION: ?? CT HEAD WO CONTRAST [...] AM T: ??07/22/2024 6:39 AM Report ID: [id number] Reading Location: ??[id number] Procedure Note Mirta Bell MD - 07/22/2024 [...] by Mirta Bell M.D. SN: Report ID: [id number] Reading Location: [place] [address] Yoanna Ugarte MD IMG CT PROCEDURES Final Result * eGFR (07/22/2024 12:43 AM STUD SHEEP FARMER) eGFR >90 >=60 mL/min/1. 73 m2 Comment: [...] reviewed 2021. Blood 07/22/2024 12:4 3 AM STUD SHEEP FARMER 07/22/2024 12:46 AM STUD SHEEP FARMER us Saadia BALLESTER[facility] LAB BLOOD ORDERABLES Final Resu lt SHON [facility] ([place]) 1 [facility] Department [place] [address] * Differential, auto (07/22/2024 12:43 AM STUD SHEEP FARMER) Neutrophil abs 5.6 1.5 - 6.5 K/cumm Imm gran abs 0.0 0.0 - 0.1 K/cumm [facility] ([place]) Lymphocyte abs 1.3 0.8 - 3.3 K/cumm [facility] ([place]) Monocyte abs 0.8 0.2 - 0.8 K/cumm [facility] ([place]) Eosinophil abs 0.1 0.0 - 0.5 K/cumm [facility] ([place]) Basophil abs 0.0 0.0 - 0.1 K/cumm [facility] ([place]) Neutrophil pct 71.8 % [facility] ([place]) Comment: Interpretive Data Percent cell count reference [...] on 2017. Blood 07/22/2024 12:4 3 AM STUD SHEEP FARMER 07/22/2024 12:46 AM STUD SHEEP FARMER us Saadia BALLESTEROS LAB BLOOD ORDERABLES Final Resu lt [facility] ([facility]) 1 [facility] Department [place] [address] * (ABNORMAL) Comprehensive metabolic panel (07/22/2024 12:43 AM STUD SHEEP FARMER) Sodium 134(L) 135 - 145 mmol/L Potassium, [...] [facility] ([facility]) Blood 07/22/2024 12:4 3 AM STUD SHEEP FARMER 07/22/2024 12:46 AM STUD SHEEP FARMER us Saadia BALLESTEROS LAB BLOOD ORDERABLES Final Resu lt [facility] ([facility]) 1 [facility] Department [place] [address] * CBC with auto differential (07/22/2024 12:43 AM STUD SHEEP FARMER) WBC 7.8 3.8 - 9.9 K/cumm Hgb [...] [facility] ([facility]) Blood 07/22/2024 12:4 3 AM STUD SHEEP FARMER 07/22/2024 12:46 AM STUD SHEEP FARMER us Saadia BALLESTEROS LAB BLOOD ORDERABLES Final Resu lt [facility] ([facility]) 1 [facility] Department [place] [address] documented in this encounter Visit Diagnoses Diagnosis Closed head injury, initial encounter- Primary documented in this encounter Care Teams Laboratory Sample Carrier Relationship Specialty Start Date End Date Ganesh Prince MD PCP - General 11/28/17 documented as of this encounter
--- OUTSIDE RECORDS SUMMARY | 2024-08-13 05:17 | XMS_ITS | Encounter Summary ---
Author Organization [facility] Address [address] [place] [address] Phone Care Team Providers Care Director Of Casework Department Name Role Phone Ganesh Prince MD Primary Care Provider + [phone] Encounter Details Date Type Department Care Team (Late st Contact Info) Description 01/16/2023 1:00 PM CDT Office Visit [facility] [address] [place] [address] 6th Floor [address] [place] [address] Spring, Karina uL NP [address] [facility] [id number] [place] [address] 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 disturbance [...] on file Legal Sex Male 8:13 AM TANK PUMPER Gender Identity Not on file Sexual Orientation [...] Program, from The Alzheimer's Association, please call [phone], or you can register online [email or web address]. 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 Legal: No legal concerns were discussed today. RESOURCES FOR ADDITIONAL INFORMATION AND SUPPORT Opportunities to participate in research can be found at: trialmatch.alz.org Access TrialMatch online. For additional assistance, email or call [phone] (press 1 for clinical trials). ClinicalTrials.gov is a resource provided by the U.S. National Library of Medicine. You can look upclinical trials (research opportunities) online At clinicaltrials.gov Alzheimer's Association [facility] Chapter: ; (toll free); http://www.alz.org, The Alzheimer's Association 05/03 Helpline provides reliable information and support to all those who need assistance. Call toll-free anytime day or night at . Caregiver Guide: tips for caregivers of people with Alzheimer's dementia, www.smiley.nih.gov/Alzheimers /Publication/Pixtre-qwrvde-wvhbzjsmjk-disease/about-guide [facility], [address] [place]. [address], , Occupational Therapists who offers caregiver training, family support, and in home safety assessments at no cost. Memorycarehs.org [facility] Agency on Aging (serving [facility]) http://[facility].[place].[facility]/government/hslaaa.html [facility] on [facility] http://www.[facility].org If you need to reach our office, please call our nurse at [phone], option 4, leave a message, this voicemail is checked several times per day. If you need to contact our social service agency director: Alan Be or Jose Angel Arriola, from the Alzheimer's Association, please call [phone] No future appointments. documented in this encounter [...] CENTER OFFICE VISIT Karina MCKEONP-BC (Nurse Practitioner) [facility] Department of Neurology Patient Name: GANESH MACIEL Medical Record Number (MRN): [id number] Date of (): 1960 Encounter Date: 01/16/2023 [...] Followed by Dr. Moore and [facility] with diagnosis of early onset Alzheimer Disease, [...] I will send a referral to [facility] and Medical Social Work. MMSE: 14, [...] for a loop. The 8 hour [employer] corner was hard. He got locked in the [...] supports for caregivers, discussed availability of our Fuel Conversion Technician from the Alzheimer's Association ACTIVE PROBLEMS Patient [...] nervous/anxious. Medical Records Review: I reviewed [facility] notes and prior Neuropsychometric testing scores. [facility] Neurobehavioral Status Exam Results 09/05/2018 07/21/2019 12/27/2020 12/27/2021 07/03/2022 Repository ICF signed? Yes No No Yes No Verbal Fluency Total Score 14 14 12 (No Data) (No Data) [place] Naming (15 item) Total Score 14 15 [...] Results Component Value Date TSH 2.38 01/28/2017 U1LLXUW 5.1 05/19/2013 Lab Results Component Value Date [...] Sensation was intact to light touch. Coordination Gbvrws-pteo-jnjrqk testing was normal. Reflexes Reflexes were symmetric at the biceps, brachioradialis and knees. Gait Gait was slow He had mild word finding difficulty throughout the interview and examination. NEUROBEHAVIORAL TESTING REPORT On formal neurobehavioral testing, which took from 1085-0218 , scores were in the normal to mildly impaired range on tests of semantic memory ([place] Naming, verbal fluency). Scores were in the [...] moving all the time. Neurobehavioral test results: [facility] Neurobehavioral Status Exam Results 09/05/2018 07/21/2019 12/27/2020 12/27/2021 07/03/2022 Repository ICF signed? Yes No No Yes No Verbal Fluency Total Score 14 14 12 (No Data) (No Data) [place] Naming (15 item) Total Score 14 15 [...] (No Data) Clinical Dementia Rating: [facility] CDR/DIAGNOSIS NEW 09/05/2018 07/21/2019 12/27/2020 12/27/2021 07/03/2022 [...] community resources (Adult day programs referral to CLAY PROCESSING LABOURER) 1. 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 [...] Program, from The Alzheimer's Association, please call [phone], or you can register online [email or web address]. 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 Legal: No legal concerns were discussed today. RESOURCES FOR ADDITIONAL INFORMATION AND SUPPORT Opportunities to participate in research can be found at: trialmatch.[employer].org Access TrialMatch online. For additional assistance, email [email or web address].org or call [phone] (press 1 for clinical trials). ClinicalTrials.gov is a resource provided by the U.S. National Library of Medicine. You can look upclinical trials (research opportunities) online At clinicaltrials.gov Alzheimer's Association [facility] Chapter: ; (toll free); http://www.alz.org, The Alzheimer's Association 05/03 Helpline provides reliable information and support to all those who need assistance. Call toll-free anytime day or night at . Caregiver Guide: tips for caregivers of people with Alzheimer's dementia, www.smiley.nih.gov/Alzheimers /Publication/Asvtgz-uxmqke-rbcfclxcod-disease/about-guide [facility], [address] [place] [address]. [address], , Occupational Therapists who offers caregiver training, family support, and in home safety assessments at no cost. Memorycarehs[facility]org [facility] Agency on Aging (serving [facility]) http://[facility].[place].org/government/hslaaa.html [facility] Agency on Aging (serving [place], [facility] and [facility] http://www.[facility].org If you need to reach our office, please call our nurse at [phone], option 4, leave a message, this voicemail is checked several times per day. If you need to contact our social service agency director: Alan Be or Jose Angel Arriola, from the Alzheimer's Association, please call [phone] No future appointments. I spent 45 minutes,face [...] reflect the currentclinical condition. Karina Joseph MSN, [facility] [place] [address] documented in this encounter Plan of Treatment [...] documented as of this encounter Care Teams Director Of Casework Department Relationship Specialty Start Date End Date Ganesh Prince MD PCP - General 11/28/17 documented as of this encounter
--- OUTSIDE RECORDS SUMMARY | 2024-08-13 05:17 | XMS_ITS | Clinical Summary ---
Author Organization [facility] Address [address] [place] [address] Care Team Providers Care Lumber Stacker Name Role Phone Ganesh Prince MD Primary Care Provider [phone] Allergies No known active allergies Medications escitalopram [...] Consider placement Hospice/ palliative evaluation met with Header Setup Operator Vero Moraes for resources and support Hearing [...] summer. Assessment & Plan (07/21/2019 5:31 PM MEASUREMENT SUPERINTENDENT): Continue donepezil 10mg daily. Increase escitalopram to [...] Department Care Team Description 07/22/2024 3:42 AM MEASUREMENT SUPERINTENDENT - 07/22/2024 7:51 AM [facility] Emergency [facility] Emergency Department [address] [place] [address] Yoanna Ugarte MD Closed head injury, initial [...] on file Legal Sex Male 8:13 AM MEASUREMENT SUPERINTENDENT Gender Identity Not on file Sexual Orientation Not on file Obstetrics History Last Filed Vital Signs Vital Sign Reading Time Taken Comments Blood Pressure 106/69 07/22/2024 6:00 AM MEASUREMENT SUPERINTENDENT Pulse 74 07/22/2024 6:00 AM MEASUREMENT SUPERINTENDENT Temperature 36.9 ??C (98.4 ??F) 07/22/2024 1 2:22 AM MEASUREMENT SUPERINTENDENT Respiratory Rate 18 07/22/2024 5:00 AM MEASUREMENT SUPERINTENDENT Oxygen Saturation 95% 07/22/2024 6:00 AM MEASUREMENT SUPERINTENDENT Inhaled Oxygen Concentration - - Weight 72.1 kg (158 lb 15.2 oz) 024 12:22 AM MEASUREMENT SUPERINTENDENT Height 167.6 cm (5' 5.98 ) 07/22/2024 1 2:22 AM MEASUREMENT SUPERINTENDENT Body Mass Index 25.67 07/22/2024 12:22 AM MEASUREMENT SUPERINTENDENT Plan of Treatment Health Maintenance Due Date [...] MICROSCOPIC AND CULTURE STAT 07/22/2024 7:[address] HEAD WO CONTRAST ED 07/22/2024 5 :47 AM MEASUREMENT SUPERINTENDENT EGFR STAT 07/22/2024 12:43 AM MEASUREMENT SUPERINTENDENT DIFFERENTIAL AUTO STAT 07/22/2024 12: 43 AM MEASUREMENT SUPERINTENDENT COMPREHENSIVE METABOLIC PANEL STAT 07/22/2024 12:43 AM MEASUREMENT SUPERINTENDENT CBC WITH AUTO DIFFERENTIAL STAT 07/22/2024 12:[address] ABDOMEN PELVIS W CONTRAST Schedule Routine, Read Routine (OP Routine) 12/07/2022 3:14 PM CDT Abdominal pain, unspecified abdominal location PSA SCREENING Routine 03/14/2016 COLONOSCOPY Routine 01/03/2012 from Last 3 Months or Most Recently Relevant to Health Maintenance Results * Urinalysis reflex to microscopic and culture Urine (07/22/2024 7:21 AM MEASUREMENT SUPERINTENDENT) Color, ur Yellow Yellow Clarity, ur Clear [...] tendency for uric acid stone formation. Source: [employer] Current Interpretive Data was last revised on [...] [facility] ([place]) Urine 07/22/2024 7:21 AM MEASUREMENT SUPERINTENDENT 07/22/2024 7:23 AM MEASUREMENT SUPERINTENDENT Saadia BALLESTEROS LAB MICROBIOLOGY - GENERAL ORDE HUNTER Final Result [facility] Department [place] [address] * CT Head WO Contrast (07/22/2024 5:47 AM MEASUREMENT SUPERINTENDENT) Anatomical Region Laterality Modality Head and Neck N/A Computed Tomogra phy 07/22/2024 6:37 AM MEASUREMENT SUPERINTENDENT Narrative 07/22/2024 6:39 AM MEASUREMENT SUPERINTENDENT EXAM DESCRIPTION: ?? CT HEAD WO CONTRAST [...] AM T: ??07/22/2024 6:39 AM Report ID: [id number] Reading Location: ??[id number] Procedure Note Mirta Bell MD - 07/22/2024 [...] by Mirta Bell M.D. SN: Report ID: [id number] Reading Location: [id number] Yoanna Ugrate MD IMG CT PROCEDURES Final Result * eGFR (07/22/2024 12:43 AM MEASUREMENT SUPERINTENDENT) eGFR >90 >=60 mL/min/1. 73 m2 Comment: [...] reviewed 2021. Blood 07/22/2024 12:4 3 AM MEASUREMENT SUPERINTENDENT 07/22/2024 12:46 AM MEASUREMENT SUPERINTENDENT us Saadia BALLESTEROS LAB BLOOD ORDERABLES Final Resu lt [facility] 1 [facility] Department [place] [address] * Differential, auto (07/22/2024 12:43 AM MEASUREMENT SUPERINTENDENT) Neutrophil abs 5.6 1.5 - 6.5 K/cumm [...] on 2017. Blood 07/22/2024 12:4 3 AM MEASUREMENT SUPERINTENDENT 07/22/2024 12:46 AM MEASUREMENT SUPERINTENDENT us Saadia BALLESTEROS LAB BLOOD ORDERABLES Final Resu lt [facility] ([place]) 1 [facility] Department [place] [address] * CBC with auto differential (07/22/2024 12:43 AM MEASUREMENT SUPERINTENDENT) WBC 7.8 3.8 - 9.9 K/cumm Hgb [...] [facility] ([facility]) Blood 07/22/2024 12:4 3 AM MEASUREMENT SUPERINTENDENT 07/22/2024 12:46 AM MEASUREMENT SUPERINTENDENT us Saadia BALLESTEROS LAB BLOOD ORDERABLES Final Resu lt [facility] ([place]) 1 [facility] Department [place] [address] * (ABNORMAL) Comprehensive metabolic panel (07/22/2024 12:43 AM MEASUREMENT SUPERINTENDENT) Sodium 134(L) 135 - 145 mmol/L Potassium, [...] [facility] ([place]) Blood 07/22/2024 12:4 3 AM MEASUREMENT SUPERINTENDENT 07/22/2024 12:46 AM MEASUREMENT SUPERINTENDENT us Saadia BALLESTEROS LAB BLOOD ORDERABLES Final Resu lt [facility] ([place]) 1 [facility] Department of Laboratories [place], [place] [id number] * CT Abdomen Pelvis W Contrast (12/07/2022 [...] seen within the prostate. ??Otherwise, unremarkable. VASCULATURE: Munb-eb-kxodlmyf aortoiliac atherosclerosis. ?? No abdominal aortic aneurysm. [...] PM T: ??12/07/2022 11:42 PM Report ID: [id number] Reading Location: ??[id number] Procedure Note Ganesh Hallory, DO - 12/07/2022 [...] seen within the prostate. Otherwise, unremarkable. VASCULATURE: Hfyc-dz-ghuvcwng aortoiliac atherosclerosis. No abdominal aortic aneurysm. MUSCULOSKELETAL: No acute abnormality. Mild to moderate degenerative changes of the spine and bilateral hip joints. OTHER: No other abnormality. IMPRESSION: 1. No acute intra-abdominal/pelvic abnormality. 2. Additional findings as detailed. THIS IS AN ELECTRONICALLY VERIFIED FINAL REPORT 12/07/2022 11:42 PM - Electronically signed by Ganesh Hall M.D. MF: BREANNA Report ID: [id number] Reading Location: [place] [address] Ganesh Prince MD IMG CT PROCEDURES Final Resu lt * PSA SCREENING (03/14/2016) PSA Normal Historical Provider HEALTH MAINTENANCE Final Result * COLONOSCOPY (01/03/2012) Colonoscopy Abnormal Comment:Diverticulosis Anatomical Region Laterality Modality Other Historical Provider HEALTH MAINTENANCE Final Result from Last 3 Months or Most Recently Relevant to Health Maintenance Insurance [employer] CHOICE MEDICARE PPO MEDICARE [facility]IC[facility] [place] [employer] CHOICE MEDICARE PPO MEDICARE Care Teams Lumber Stacker Relationship Specialty Start Date End Date Ganesh Prince MD PCP - General 11/28/17
--- OUTSIDE RECORDS SUMMARY | 2024-08-13 05:17 | XMS_ITS | Encounter Summary ---
Author Organization [facility] Address [address] [place] [address] Phone Care Team Providers Care Compensator Name Role Phone Ganesh Prince MD Primary Care Provider + [phone] Encounter Details Date Type Department Care Team (Late st Contact Info) Description 08/28/2019 Telephone [facility] [address] [place] [address] First Floor [address] [place] [address] Maricruz Brunner RMA Social History Tobacco Use Types Packs/Day Years Used Date Smoking Tobacco: Former Alcohol Use Standard Drinks/Week Comments Yes 0 (1 standard drink = 0.6 oz pur e alcohol) Sex and Gender Information Value Date Recorded Sex Assigned at Not on file Legal Sex Male 8:13 AM ADMINISTRATIVE LIBRARY ASSISTANT Gender Identity Not on file Sexual Orientation Not on file documented as of this encounter Miscellaneous Notes * Telephone Encounter - Maricruz Brunner RMA - 08/28/2019 10:21 AM ADMINISTRATIVE LIBRARY ASSISTANT Kasandra in the EEG department was contacted to call patitens's to reschedule patient and updatepatients insurance information in the system. NISTRATIVE LIBRARY ASSISTANT * Telephone Encounter - Maricruz Brunner RMA - 08/28/2019 10:20 AM ADMINISTRATIVE LIBRARY ASSISTANT ----- Message from Pilar Miner RN sent at 08/22/2019 3:30 PM ADMINISTRATIVE LIBRARY ASSISTANT ----- Regarding: EEG Patient has new insurance and would like to go ahead and reschedule the EEG. Can you please schedule this? prefers afternoons. Her name is Murtaza and her number is [phone]. Thank you, Pilar NISTRATIVE LIBRARY ASSISTANT documented in this encounter Plan of Treatment Not on file documented as of this encounter Visit Diagnoses Not on filedocumented in this encounter Care Teams Compensator Relationship Specialty Start Date End Date Ganesh Prince MD PCP - General 11/28/17 documented as of this encounter
--- OUTSIDE RECORDS SUMMARY | 2024-08-13 05:17 | XMS_ITS | Encounter Summary ---
Author Organization [facility] Address [address] [place] [address] Phone Care Team Providers Care Leather Splitter Name Role Phone Ganesh Prince MD Primary Care Provider + [phone] Encounter Details Date Type Department Care Team (Late st Contact Info) Description 11/21/[address] Floor [address] [place] [address] Alan Be MSW Social History Tobacco Use Types Packs/Day Years Used Date Smoking Tobacco: Former Alcohol Use Standard Drinks/Week Comments Yes 0 (1 standard drink = 0.6 oz pur e alcohol) Sex and Gender Information Value Date Recorded Sex Assigned at Not on file Legal Sex Male 8:13 AM INTERNAL REVENUE AGENT Gender Identity Not on file Sexual Orientation [...] This SW suggested that she connect with [facility]. This SW suggested their ADC, Savvy Caregiver Class, and Support Group. -YOVANI Izquierdo documented in this encounter Plan of Treatment Not on file documented as of this encounter Visit Diagnoses Not on filedocumented in this encounter Care Teams Leather Splitter Relationship Specialty Start Date End Date Ganesh Prince MD PCP - General 11/28/17 documented as of this encounter
--- OUTSIDE RECORDS SUMMARY | 2024-08-13 05:17 | XMS_ITS | Encounter Summary ---
Author Organization [facility] Address [address] [place] [address] Phone Care Team Providers Care Aging Department Supervisor Name Role Phone Ganesh Prince MD Primary Care Provider + [phone] Encounter Details Date Type Department Care Team (Late st Contact Info) Description 01/29/[address] 6th Floor [address] [place] [address] Silvia Moraes Social History Tobacco Use Types Packs/Day Years Used Date Smoking Tobacco: Former Alcohol Use Standard Drinks/Week Comments Yes 0 (1 standard drink = 0.6 oz pur e alcohol) Sex and Gender Information Value Date Recorded Sex Assigned at Not on file Legal Sex Male 8:13 AM INBOUND SALES REPRESENTATIVE Gender Identity Not on file Sexual Orientation Not on file documented as of this encounter Miscellaneous Notes * Telephone Encounter - Silvia Moraes - 01/29/2024 7:40 PM CDT This CC conducted unscheduled telephone care consultation with Mirian ???Murtaza?? Seema following referral from the nurse practitioner. She???s the PCG for her , Ganesh, who has YOAD. He???s 63 yrs old. They live in [place], [place]. Ganesh has been agitated and aggressive. The nurse practitioner is working on adjusting his medications. Right now, he's taking 75 mg of Seroquel three times per day. She reported that about an hourand a half before his next dose, his behaviors resurface. This CC recommended she communicate aboutthat with the nurse practitioner through Ganesh's [email or web address] account. Care options were discussed. The couple has approximately $800,000 in assets. Basic information about Medicaid in [place] was provided and Murtaza was encouraged to talk with an elder law associate attorney about planning for medicaid. She does already have durable power of associate attorney for healthcare and for finances, but they haven't done any other legal/financial planning. She can call LUISANA to find out if they???re eligible for any state/local assistance. She???s interested in short-term respite options. This CC will send her a list of care communities to check with about availability and requirements. Action Plan: 1) Contact [employer] at [phone] to find out if you qualify for any state/local services. 2) Consider talking with an elder law associate attorney about planning for Medicaid. A list is attached. 3) Communicate with Dianne Worthington via [employer] about how Ganesh is responding to the [...] on filedocumented in this encounter Care Teams Aging Department Supervisor Relationship Specialty Start Date End Date Ganesh Prince MD PCP - General 11/28/17 documented as of this encounter
--- OUTSIDE RECORDS SUMMARY | 2024-08-13 05:17 | XMS_ITS | Encounter Summary ---
Author Organization [facility] Address [address] [place] [address] Phone Care Team Providers Care Tobacco Sampler Name Role Phone Ganesh Prince MD Primary Care Provider + [phone] Encounter Details Date Type Department Care Team (Late st Contact Info) Description 10/17/2023 1:00 PM QUALITY ASSURANCE SUPERVISOR TRIM Office Visit [facility] First Floor [address] [place] [address] Anika Rendon PA [address] [facility] [address] [place], [place] [id number] 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) Social History Tobacco Use Types Packs/Day Years Used Date Smoking Tobacco: Former Alcohol Use Standard Drinks/Week Comments Yes 0 (1 standard drink = 0.6 oz pur e alcohol) Sex and Gender Information Value Date Recorded Sex Assigned at Not on file Legal Sex Male 8:13 AM QUALITY ASSURANCE SUPERVISOR TRIM Gender Identity Not on file Sexual Orientation Not on file documented as of this encounter Last Filed Vital Signs Vital Sign Reading Time Taken Comments Blood Pressure 118/77 10/17/2023 1:18 PM QUALITY ASSURANCE SUPERVISOR TRIM Pulse 80 10/17/2023 1:18 PM QUALITY ASSURANCE SUPERVISOR TRIM Temperature 37.4 ??C (99.3 ??F) 10/17/2023 1:18 PM CS T Respiratory Rate - - Oxygen Saturation - - Inhaled Oxygen Concentration - - Weight 77.7 kg (171 lb 3.2 oz) 10/17/2023 1:18 P M QUALITY ASSURANCE SUPERVISOR TRIM Height 167.6 cm (5' 5.98 ) 10/17/2023 1:18 PM CS T Body Mass Index 27.65 10/17/2023 1:18 PM QUALITY ASSURANCE SUPERVISOR TRIM documented in this encounter Patient Instructions * Patient Instructions* Anika Rendon PA - 10/17/2023 1:00 PM QUALITY ASSURANCE SUPERVISOR TRIM [facility] TODAY'S VISIT Provider: LESLI [...] call to schedule a talk with the social sciences professor. RESOURCES FOR ADDITIONAL INFORMATION AND SUPPORT Opportunities to participate in research can be found at: trialmatch.alz.org Access TrialMatch online. For additional assistance, email or call [phone] (press 1 for clinical trials). ClinicalTrials.gov is a resource provided by the U.S. National Library of Medicine. You can look upclinical trials (research opportunities) online At clinicaltrials.gov Alzheimer's Association of [place] Chapter: ; (toll free); http://www.alz.org, The Alzheimer's Association 05/03 Helpline provides reliable information and support to all those who need assistance. Call toll-free anytime day or night at . The best way to reach our team is via My Chart, this is a secure way for us to communicate about your health care. Please call The My Chart Support Desk: [phone] or [phone] to obtain a link. If you prefer to communicate by phone, please call our nurse at [phone], option 4, leave a message, this voicemail is checked several times per day. Vero Moraes is available to help with resources in the community, caregiver and patient support. Please feel free to contact her: Silvia Moraes R.N. Field Cane Scaler Alzheimer's Association, [address] [facility] [address] Toll Free: [phone] ext [phone] Email: No future appointments. We will see you again in 6 months. ITY ASSURANCE SUPERVISOR TRIM ITY ASSURANCE SUPERVISOR TRIM documented in this encounter Progress Notes * Anika Rendon PA - 10/17/2023 1:00 PM CST Images from the original note were not included. [facility] ESTABLISHED PATIENT FOLLOW-UP VISIT Mehrdad Padilla PA-C (Physician Powder Blender And Pourer) [facility] Department of Neurology Patient Name: GANESH MACIEL Medical Record Number (MRN): [id number] Date of (): 1960 Encounter Date: 10/17/2023 [...] 01/16/23 note) Followed by Dr. Moore and [facility] with diagnosis of early onset [...] I will send a referral to [facility] SocialWork. MMSE: 14, CDR: 2, SB: 10 -Most recent ROV with TREND INVESTIGATOR Karina Joseph on 01/16/23- He is tolerating [...] support. Prescribed busar 5mg BID. -Spouse called [facility] office 07/04/23- behavioral issues, agitation [...] able to operate household appliances including the data architect manager, laundry machines, and wire drawing die maker. He has difficulty using technology, including [...] as the change in schedule with her fpc may confuse P. They have a very supportive family who is willing to help. CS is interested in adult day care. They live in [place], [place]. ADDITIONAL SAFETY/CAREGIVING CONCERNS: Is He currently driving? No Who supervises medications? Spouse or other caregiver supervises. Are there firearms in the home? No Have there been any recent (in the past 6 months) falls? No There have been no hospitalizations and/or major changes in their physical health since their most recent [facility] visit. He requires the assistance [...] were symmetric. There was no pronator drift. Xzjumx-ymsq-ajsjff testing were normal. No tremor or bradykinesia [...] impaired range on tests of semantic memory (Ellerbe Naming, verbal fluency). Scores were in the [...] episodic memory. These findings are consistent with uimudyxo-wn-xosfwf impairment, and could be seen in, but are notspecific for symptomatic Alzheimer disease. [facility] Neurobehavioral Status Test Results 09/05/2018 7:00 AM 07/21/2019 7:00 AM 12/27/2020 3:59 AM 12/27/2021 2:39 AM 07/03/2022 7:00 AM 01/16/2023 7:00 AM 10/17/2023 7:00 AM [facility] Neurobehavioral Status Exam Results Repository ICF signed? Yes No No Yes No No Verbal Fluency Total Score 14 14 12 2 Ellerbe Naming (15 item) Total Score 14 15 [...] AM 01/16/2023 7:00 AM 10/21/2023 7:00 PM [facility] CDR/DIAGNOSIS NEW Repository ICF signed? [...] Results Component Value Date TSH 2.38 01/28/2017 U4UDTDP 5.1 05/19/2013 Lab Results Component Value Date [...] to discuss adult day program resources near [place], [place]. 4. Safety: The CS was made [...] labs, tests and medical records, time spent hyvy-gq-cdrb with the patient and family during the visit, performing counselling and education, placing orders and documenting the visit in the patient's EHR. Mehrdad Padilla PA-C Physician Powder Blender And Pourer [facility]-Department of Neurology [facility] Detailed plan and patient/caregiver [...] call to schedule a talk with the social sciences professor. RESOURCES FOR ADDITIONAL INFORMATION AND SUPPORT Opportunities to participate in research can be found at: trialmatch.alz.org Access TrialMatch online. For additional assistance, email or call [phone] (press 1 for clinical trials). ClinicalTrials.gov is a resource provided by the U.S. National Library of Medicine. You can look upclinical trials (research opportunities) online At clinicaltrials.gov Alzheimer's Association [facility] Chapter: ; (toll free); http://www.alz.org, The Alzheimer's Association 05/03 Helpline provides reliable information and support to all those who need assistance. Call toll-free anytime day or night at . The best way to reach our team is via My Chart, this is a secure way for us to communicate about your health care. Please call The My Chart Support Desk: [phone] or [phone] to obtain a link. If you prefer to communicate by phone, please call our nurse at [phone], option 4, leave a message, this voicemail is checked several times per day. Vero Moraes is available to help with resources in the community, caregiver and patient support. Please feel free to contact her: Silvia Moraes R.N. Field Cane Scaler Alzheimer's Association, [address] [place], [place] [address] Toll Free: [phone] ext [phone] Email: No future appointments. We will see you again in 6 months. 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
--- OUTSIDE RECORDS SUMMARY | 2024-08-13 05:17 | XMS_ITS | Encounter Summary ---
Author Organization [facility] Address [address] [place] [address] Phone Care Team Providers Care Store Worker Name Role Phone Ganesh Prince MD Primary Care Provider [phone] Encounter Details Date Type Department Care Team [...] on file Legal Sex Male 8:13 AM MARKET RESEARCH ASSISTANT Gender Identity Not on file Sexual [...] on filedocumented in this encounter Care Teams Store Worker Relationship Specialty Start Date End Date Ganesh Prince MD PCP - General 11/28/17 documented as of this encounter
--- OUTSIDE RECORDS SUMMARY | 2024-08-13 05:18 | XMS_ITS | Encounter Summary ---
Author Organization [facility] Healthcare Address [address] [place] [address] Care Team Providers Care Stone Spreader Operator Name Role Phone Tommie Lu MD Primary Care Provider + Encounter Details Date Type Department Care Team (Late st Contact Info) Description 03/31/2008 12:01 AM CDT - 03/31/2008 11:59 PM CDT Hospital Encounter [facility] Tommie Lu MD [address] [place] [address] Social History Tobacco Use Types Packs/Day Years Used Date Smoking Tobacco: Never Assessed Sex and Gender Information Value Date Recorded Sex Assigned at Not on file Legal Sex Male 8:13 AM KEY ACCOUNT COORDINATOR Gender Identity Not on file Sexual Orientation Not on file documented as of this encounter Plan of Treatment Not on file documented as of this encounter Visit Diagnoses Not on filedocumented in this encounter Care Teams Stone Spreader Operator Relationship Specialty Start Date End Date Tommie Lu MD [address] [place] [address] PCP - General 10/22/07 12/28/13 documented as of this encounter
--- OUTSIDE RECORDS SUMMARY | 2024-08-13 05:18 | XMS_ITS | Encounter Summary ---
Author Organization [facility] Healthcare Address [address] [place] [address] Care Team Providers Care Coordinator Of Online Programs Name Role Phone Tommie Lu MD Primary Care Provider + Encounter Details Date Type Department Care Team (Late st Contact Info) Description 11/06/2006 11:31 AM CDT - 11/06/2006 11:59 PM CDT Hospital Encounter [facility] Tommie Lu MD [address] [place] [address] Social History Tobacco Use Types Packs/Day Years Used Date Smoking Tobacco: Never Assessed Sex and Gender Information Value Date Recorded Sex Assigned at Not on file Legal Sex Male 8:13 AM MANAGER WEB Gender Identity Not on file Sexual Orientation Not on file documented as of this encounter Plan of Treatment Not on file documented as of this encounter Visit Diagnoses Not on filedocumented in this encounter Care Teams Coordinator Of Online Programs Relationship Specialty Start Date End Date Tommie Lu MD [facility] [place] [address] PCP - General 10/23/06 10/14/07 documented as of this encounter
--- OUTSIDE RECORDS SUMMARY | 2024-08-13 05:18 | XMS_ITS | Encounter Summary ---
Author Organization [facility] Healthcare Address [address] [place] [address] Care Team Providers Care Rv Technician Name Role Phone Tommie Lu MD Primary Care Provider + Encounter Details Date Type Department Care Team (Late st Contact Info) Description 03/21/2008 12:11 PM CDT - 03/21/2008 11:59 PM CDT Hospital Encounter [facility] Tommie Lu MD [address] [facility] [place] [address] Social History Tobacco Use Types Packs/Day Years Used Date Smoking Tobacco: Never Assessed Sex and Gender Information Value Date Recorded Sex Assigned at Not on file Legal Sex Male 8:13 AM CONTROLLER MECHANIC Gender Identity Not on file Sexual Orientation Not on file documented as of this encounter Plan of Treatment Not on file documented as of this encounter Visit Diagnoses Not on filedocumented in this encounter Care Teams Rv Technician Relationship Specialty Start Date End Date Tommie Lu MD [address] [place] [address] PCP - General 10/22/07 12/28/13 documented as of this encounter
--- OUTSIDE RECORDS SUMMARY | 2024-08-13 05:18 | XMS_ITS | Encounter Summary ---
Author Organization [facility] Healthcare Address [address] [place] [address] Care Team Providers Care Blow Mold Operator Name Role Phone Tommie Deal MD Primary Care Provider + Encounter Details Date Type Department Care Team (Late st Contact Info) Description 12/25/2012 2:27 PM CDT - 12/25/2012 11:59 PM CDT Hospital Encounter [facility] Tommie Andrew MD [address] [facility] [place] [address] Concussion; Fall; Unspecified place of occurrence; Other activity; Other external cause of injury or poisoning; Dizziness and giddiness; Other specified visual disturbances Social History Tobacco Use Types Packs/Day Years Used Date Smoking Tobacco: Never Assessed Sex and Gender Information Value Date Recorded Sex Assigned at Not on file Legal Sex Male 8:13 AM SKEIN MERCERIZING MACHINE OPERATOR Gender Identity Not on file [...] 12/26/2012 2:[address] [place] ?[id number] ??Acc#: ??[id number] DATE OF EXAM: ??Dec 25 2012 CLINICAL [...] MD Sanna - 12/12/[place] [id number] Acc#: [id number] DATE OF EXAM: Dec 25 2012 CLINICAL [...] disturbances documented in this encounter Care Teams Blow Mold Operator Relationship Specialty Start Date End Date Tommie Deal MD [address] [facility] [place] [place] [address] PCP - General 10/22/07 12/28/13 documented as of this encounter
--- OUTSIDE RECORDS SUMMARY | 2024-08-13 05:18 | XMS_ITS | Encounter Summary ---
Author Organization [facility] Healthcare Address [address] [place] [address] Care Team Providers Care Portfolio Consultant Name Role Phone Tommie Lu MD Primary Care Provider + Encounter Details Date Type Department Care Team (Late st Contact Info) Description 07/01/2015 10:39 AM FUEL OIL CLERK - 07/01/2015 11:59 PM FUEL OIL CLERK Hospital Encounter [facility]INCON[facility] Michael Keyes [address] [place] [address] Disorientation Social History Tobacco Use Types Packs/Day Years Used Date Smoking Tobacco: Former Alcohol Use Standard Drinks/Week Comments Yes 0 (1 standard drink = 0.6 oz pur e alcohol) Sex and Gender Information Value Date Recorded Sex Assigned at Not on file Legal Sex Male 8:13 AM FUEL OIL CLERK Gender Identity Not on file Sexual [...] CT SCAN REPORT Routine 07/01/2015 10:[address] HEAD WO CONTRAST Routine 07/01/2015 1 0:48 AM FUEL OIL CLERK documented in this encounter Results * PRE-PRELIMINARY CT SCAN REPORT (07/01/2015 10:48 AM FUEL OIL CLERK) Anatomical Region Laterality Modality N/A Computed Tomogra phy 07/01/2015 10:4 8 AM FUEL OIL CLERK Narrative 07/01/2015 10:55 AM FUEL OIL CLERK OP STAT IMAGING PRELIMINARY RESULT [facility] PATIENT: ?? GANESH ??JANELL MR#: ?? [id number] : 1960 AGE / SEX: ?? 54Y / M Procedure: ECT 0022 - CT Head WO Exam Date: ?? Jul 01 2015 10:48AM ?Loc: [id number] Acc#: ?? [id number] Pt_Class at Time of Procedure: O Current Pt Class and Location: ?? O ?RAD Requesting Location: RAD Priority: ??ROUTINE Reason: ?? [facility] transfer Order Comments: Ord : ?? MICHAEL ??MALENCH ??M.D. Preliminary Reading Doctor: ??SAMEER LYNN M.D., RADIOLOGIST Completed on: ??Jul 01 2015 10:55AM Call Results Info: Patient Waiting: No Call Report to: [facility] ed Comments: [facility] transfer ----- Please be advised this is a preliminary report. ??A final report is forthcoming. READ ANY COMMENTS BELOW Findings: ? Abnormal Comments Line 1: ?naicp. mild volume loss. mild ethmoid sinus dz Comments Line 2: Comments Line 3: Comments Line 4: Comments Line 5: Procedure Note Provider, Sanna, - 12/12/2016 OP STAT IMAGING PRELIMINARY RESULT [facility] PATIENT: GANESH MACIEL MR#: [id number] : 1960 AGE / SEX: 54Y / M Procedure:ECT 0022 - CT Head WO Exam Date: Jul 01 2015 10:48AM Loc:ESIE20 Acc#: [id number] Pt_Class at Time of Procedure: O Current Pt Class and Location: O RAD Requesting Location: RAD Priority: ROUTINE Reason: [facility] transfer Order Comments: Ord Dr: MICHAEL KEYES M.D. Preliminary Reading Doctor: SAMEER LYNN M.D., RADIOLOGIST Completed on: Jul 01 2015 10:55AM Call Results Info: Patient Waiting: No Call Report to: [facility] ed Comments: [facility] transfer ----- Please be advised this is a preliminary report. A final report isforthcoming. READ ANY COMMENTS BELOW Findings: Abnormal Comments Line 1: naicp. mild volume loss. mild ethmoid sinus dz Comments Line 2: Comments Line 3: Comments Line 4: Comments Line 5: us Historical Provider MD SQUIRES CT PROCEDURES Final R esult * CT Head WO Contrast (07/01/2015 10:48 AM FUEL OIL CLERK) Anatomical Region Laterality Modality Head and Neck N/A Computed Tomogra phy 07/01/2015 10:4 8 AM FUEL OIL CLERK Narrative 07/01/2015 1:23 PM FUEL OIL CLERK DATE OF EXAM: ??Jul 01 2015 10:48AM Acc#: ??[id number] ??ECT 0022 - CT Head WO ?? [...] INTRACRANIAL PATHOLOGY. 2. ?? MILD VOLUME LOSS. CARBON FURNACE OPERATOR HELPER: ??DH9 TRANSCRIBE DATE/TIME: ??Jul 01 2015 11:28A RADIOLOGIST: ??SAMEER LYNN M.D. ??READ ON: ??Jul 01 2015 10:55A ORDERING DR: MICHAEL KEYES M.D. ? THIS DOCUMENT HAS BEEN ELECTRONICALLY SIGNED BY: ??SAMEER LYNN M.D. ??ON: ??Jul 01 2015 ??1:23P Attending: ??STEPHY, ??MICHAEL Requesting: ??STEPHY, ??MICHAEL Requesting Fax: ??[phone] Attending Fax: ??-- Attending ID: ??[id number] Requesting ID: ??[id number] Report To 1 ID: ?? Report To 1 Name: ??, ?? Report To 1 FAX: ??-- Report To 2 ID: ?? Report To 2 Name: ??, ?? Report To 2 FAX: ??-- NextGen Order #: ?? Procedure Note Provider, MD Sanna - 12/12/2016 DATE OF EXAM: Jul 01 2015 10:48AM Acc#: [id number] ECT 0022 - CT Head WO DIAGNOSIS: [...] ACUTE INTRACRANIAL PATHOLOGY. 2. MILD VOLUME LOSS. CARBON FURNACE OPERATOR HELPER: Bita TRANSCRIBE DATE/TIME: Jul 01 2015 11:28A RADIOLOGIST: SAMEER LYNN M.D. READ ON: Jul 01 2015 10:55A ORDERING DR: MICHAEL KEYES M.D. THIS DOCUMENT HAS BEEN ELECTRONICALLY SIGNED BY: SAMEER LYNN M.D. ON: Jul 01 2015 1:23P Attending: MICHAEL KEYES Requesting: MICHAEL KEYES Requesting Attending Fax: -- Attending ID: [id number] Requesting ID: [id number] Report To 1 ID: Report To 1 Name: , Report To 1 FAX: -- Report To 2 ID: Report To 2 Name: , Report To 2 FAX: -- NextGen Order #: us Historical Provider MD SQUIRES CT PROCEDURES Final R esult documented in this encounter Visit Diagnoses Diagnosis Disorientation Other general symptoms documented in this encounter Care Teams Portfolio Consultant Relationship Specialty Start Date End Date Tommie Lu MD [address] [place] [address] PCP - General 12/29/13 11/09/16 documented as of this encounter
--- OUTSIDE RECORDS SUMMARY | 2024-08-13 05:18 | XMS_ITS | Encounter Summary ---
Author Organization [facility] Healthcare Address [address] [place] [address] Care Team Providers Care Prospecting Driller Name Role Phone Tommie Lu MD Primary Care Provider + Encounter Details Date Type Department Care Team (Latest Contact Info) Description 02/09/2009 1:52 PM CDT - 02/09/2009 3:23 PM CDT Hospital Encounter [facility] CLINCONSammy Marshall MD [address] [facility] [place] [address] Georges Birch MD [address] [place] [address] Open wound of knee, leg, and ankle; Accident caused by other specified cutting and piercing instruments or objects; Place of occurrence, public building; Need for prophylactic vaccination with tetanus-diphtheria (Td) Social History Tobacco Use Types Packs/Day Years Used Date Smoking Tobacco: Never Assessed Sex and Gender Information Value Date Recorded Sex Assigned at Not on file Legal Sex Male 8:13 AM ANIMATION DIRECTOR Gender Identity Not on file Sexual [...] (Td) documented in this encounter Care Teams Prospecting Driller Relationship Specialty Start Date End Date Tommie Lu MD [address] [facility] [address] [place], [place] [address] PCP - General 10/22/07 12/28/13 documented as of this encounter
--- OUTSIDE RECORDS SUMMARY | 2024-08-13 05:18 | XMS_ITS | Encounter Summary ---
Author Organization [facility] Care Team Providers Care Implementation Manager Name Role Phone Tommie Lu MD Primary Care Provider + Encounter Details Date Type Department Care Team (Latest Contact Info) Description 08/17/2008 8:41 AM CHARGE MASTER COORDINATOR Hospital Encounter [facility] [place] [address] [place] [address] Pain in joint, lower leg Social History Tobacco Use Types Packs/Day Years Used Date Smoking Tobacco: Never Assessed Sex and Gender Information Value Date Recorded Sex Assigned at Not on file Legal Sex Male 8:13 AM CHARGE MASTER COORDINATOR Gender Identity Not on file Sexual Orientation Not on file documented as of this encounter Plan of Treatment Not on file documented as of this encounter Visit Diagnoses Diagnosis Pain in joint, lower leg documented in this encounter Care Teams Implementation Manager Relationship Specialty Start Date End Date Tommie Lu MD [address] [facility] [place] [address] PCP - General 10/22/07 12/28/13 documented as of this encounter
--- OUTSIDE RECORDS SUMMARY | 2024-08-13 05:18 | XMS_ITS | Encounter Summary ---
Author Organization [facility] Healthcare Address [address] [place] [address] Care Team Providers Care Able Bodied Tankerman Name Role Phone Tommie Lu MD Primary Care Provider + Encounter Details Date Type Department Care Team (Late st Contact Info) Description 07/01/2015 9:36 AM LAB MANAGER - 07/01/2015 12:37 PM LAB MANAGER Hospital Encounter [facility] [place] [address] [address] Labyrinthitis; Essential (primary) hypertension; Personal history of nicotine dependence Social History Tobacco Use Types Packs/Day Years Used Date Smoking Tobacco: Former Alcohol Use Standard Drinks/Week Comments Yes 0 (1 standard drink = 0.6 oz pur e alcohol) Sex and Gender Information Value Date Recorded Sex Assigned at Not on file Legal Sex Male 8:13 AM LAB MANAGER Gender Identity Not on file Sexual [...] GLOMERULAR FILTRATION RATE Routine 07/01/2015 9:45 AM LAB MANAGER PLASMA BASIC METABOLIC PANEL Routine 07/01/2015 9:45 AM LAB MANAGER BLOOD PROTHROMBIN TIME (PT) Routine 07/01/2015 9:45 AM LAB MANAGER BLOOD PARTIAL THROMBOPLASTIN TIME (PTT) Routine 07/01/2015 9:45 AM LAB MANAGER BLOOD D-DIMER Routine 07/01/2015 9:45 AM LAB MANAGER BLOOD CELL COUNT (CBC), MORPHOLOGIC EXAM Routine 07/01/2015 9:45 AM LAB MANAGER BLOOD CELL MORPHOLOGIC EXAM Routine 07/01/2015 9:45 AM LAB MANAGER BLOOD GLUCOSE, POC Routine 07/01/2015 9: 40 AM LAB MANAGER ELECTROCARDIOGRAPHY (ECG) 07/01/2015 DISCHARGE LABORATORY CUMULATIVE REPORT 07/01/2015 documented in this encounter Results * (ABNORMAL) Blood D-dimer (07/01/2015 9:45 AM LAB MANAGER) D-dimer <150(L) 150 - 230 ng/ml D-DU HISTORICAL RESULTS Comment: Interpretive Data This D-dimer test is approved by the FDA to exclude suspected PE and DVT in outpatients when the result is <230 ng/mL in conjunction with a pre-test probability score of low or moderate using the Wells criteria. Current Interpretive Data was last revised on 2015. Blood specimen (specimen) 07/01/2015 9:45 AM LAB MANAGER us Historical Provider LAB BLOOD ORDERABLES Mariza l Result HISTORICAL RESULTS * (ABNORMAL) Plasma basic metabolic panel (07/01/2015 9:45 AM LAB MANAGER) Sodium 136 135 - 145 mmol/L HISTORICAL [...] HIST ORICAL RESULTS Plasma 07/01/2015 9:45 AM LAB MANAGER Historical Provider MD LAB BLOOD ORDERABLES Mariza l Result Performing Organization Address [facility] de Phone Number HISTORICAL RESULTS * Blood partial thromboplastin time (PTT) (07/01/2015 9:45 AM LAB MANAGER) PTT 30.9 25.0 - 37.0 seconds HISTORICAL RESULTS Blood specimen (specimen) 07/01/2015 9:45 AM LAB MANAGER Historical Provider LAB BLOOD ORDERABLES Mariza l Result Performing Organization Address [facility] de Phone Number HISTORICAL RESULTS * Blood prothrombin time (PT) (07/01/2015 9:45 AM LAB MANAGER) Prothrombin time (PT) 10.2 9.5 - 12.5 [...] 2015. Blood specimen (specimen) 07/01/2015 9:45 AM LAB MANAGER Historical Provider LAB BLOOD ORDERABLES Mariza wilkins Result Performing Organization Address City/[facility] de Phone Number HISTORICAL RESULTS * (ABNORMAL) Blood cell morphologic exam (07/01/2015 9:45 AM LAB MANAGER) Neutrophils 44.5 44.0 - 80.0 % HISTORICAL [...] RESULTS Blood specimen (specimen) 07/01/2015 9:45 AM LAB MANAGER Historical Provider LAB BLOOD ORDERABLES Mariza wilkins Result Performing Organization Address [facility] de Phone Number HISTORICAL RESULTS * (ABNORMAL) Blood cell count (CBC), morphologic exam (07/01/2015 9:45 AM LAB MANAGER) WBC 5.0 3.8 - 9.8 K/cumm HISTORICAL [...] RESULTS Blood specimen (specimen) 07/01/2015 9:45 AM LAB MANAGER Historical Provider LAB BLOOD ORDERABLES Mariza l Result Performing Organization Address City/State/[facility] Co de Phone Number HISTORICAL RESULTS * Serum estimated glomerular filtration rate (07/01/2015 9:45 AM LAB MANAGER) eGFR >60 ml/min/1.7 3 m2 HISTORICAL RESULTS Comment: Interpretation of Estimated GFR (eGFR): Normal ?>/= 60 mL/min/1.73m2 Possible Chronic Kidney Disease ??15 - 59 mL/min/1.73m2 Possible Kidney Failure ?< 15 ??mL/min/1.73m2 If -[place] multiply value by 1.16. ??Estimated glomerular filtration [...] valid in children. Serum 07/01/2015 9:45 AM LAB MANAGER Historical Provider LAB BLOOD ORDERABLES Mariza l Result HISTORICAL RESULTS * (ABNORMAL) Blood glucose, POC (07/01/2015 9:40 AM LAB MANAGER) Glucose, POC, bld 115(H) 71 - 98 mg/dl HISTORICAL RESULTS Blood specimen (specimen) 07/01/2015 9:40 AM LAB MANAGER Historical Provider LAB BLOOD ORDERABLES Mariza l [...] dependence documented in this encounter Care Teams Able Bodied Tankerman Relationship Specialty Start Date End Date Tommie Lu MD [address] [facility] [place] [address] PCP - General 12/29/13 11/09/16 documented as of this encounter
--- OUTSIDE RECORDS SUMMARY | 2024-08-13 05:18 | XMS_ITS | Encounter Summary ---
Author Organization [facility] Healthcare Address [address] [place] [address] Care Team Providers Care Museum Specialist Name Role Phone Tommie Lu MD Primary Care Provider + Encounter Details Date Type Department Care Team (Late st Contact Info) Description 07/01/2015 10:56 AM PAN DUMPER - 07/01/2015 11:59 PM PAN DUMPER Hospital Encounter [facility] Dizziness and giddiness Social History Tobacco Use Types Packs/Day Years Used Date Smoking Tobacco: Former Alcohol Use Standard Drinks/Week Comments Yes 0 (1 standard drink = 0.6 oz pur e alcohol) Sex and Gender Information Value Date Recorded Sex Assigned at Not on file Legal Sex Male 8:13 AM PAN DUMPER Gender Identity Not on file Sexual Orientation [...] giddiness documented in this encounter Care Teams Museum Specialist Relationship Specialty Start Date End Date Tommie Lu MD [address] [facility] [place] [address] PCP - General 12/29/13 11/09/16 documented as of this encounter
--- OUTSIDE RECORDS SUMMARY | 2024-08-13 05:18 | XMS_ITS | Encounter Summary ---
Author Organization [facility] Healthcare Address [address] [place] [address] Care Team Providers Care Principal Software Engineer Name Role Phone Tommie Lu MD Primary Care Provider + Encounter Details Date Type Department Care Team (Late st Contact Info) Description 10/22/2009 9:49 AM CHANNEL LIP WETTER - 10/22/2009 11:42 AM [facility] Hospital Encounter [facility] Luis Cintron MD [address] [address] Georges Birch MD [address] [place] [address] Sprain of wrist; Myalgia and myositis; Fall from one level to another; Place of occurrence, industrial places and premises; Civilian activity done for income or pay Social History Tobacco Use Types Packs/Day Years Used Date Smoking Tobacco: Never Assessed Sex and Gender Information Value Date Recorded Sex Assigned at Not on file Legal Sex Male 8:13 AM CHANNEL LIP WETTER Gender Identity Not on file Sexual Orientation [...] pay documented in this encounter Care Teams Principal Software Engineer Relationship Specialty Start Date End Date Tommie Lu MD [address] [place] [address] PCP - General 10/22/07 12/28/13 documented as of this encounter
--- OUTSIDE RECORDS SUMMARY | 2024-08-13 05:18 | XMS_ITS | Encounter Summary ---
Author Organization [facility] Address [address] [place] [address] Care Team Providers Care Retail Pharmacy Technician Name Role Phone Tommie Lu MD Primary Care Provider + Encounter Details Date Type Department Care Team (Late st Contact Info) Description 01/03/2012 8:16 AM CDT - 01/03/2012 10:30 AM CDT Hospital Encounter [facility] Mary Castillo MD [address] [place] [address] [address] Special screening for malignant neoplasms, colon; Diverticulosis of colon; Internal hemorrhoids; History of colonic polyps Social History Tobacco Use Types Packs/Day Years Used Date Smoking Tobacco: Never Assessed Sex and Gender Information Value Date Recorded Sex Assigned at Not on file Legal Sex Male 8:13 AM MAKE READY WORKER Gender Identity Not on file Sexual Orientation Not on file documented as of this encounter Procedure Notes * ProviderSanna MD - 01/03/2012 12:00 AM CDTAssociated Order(s): COLONOSCOPY PROCEDURE REPORT Patient: GANESH MACIEL Account: [id number] Room No: : 1960 Patient Type: [facility] Attend.: Mary Khan M.D. Admit Date: 01/03/2012 [...] CDT PROCEDURE REPORT Patient: GANESH MACIEL Account: [id number] Room No: : 1960 Patient Type: SDS [...] polyps documented in this encounter Care Teams Retail Pharmacy Technician Relationship Specialty Start Date End Date Tommie Lu MD [address] [facility] [place] [address] PCP - General 10/22/07 12/28/13 documented as of this encounter
--- OUTSIDE RECORDS SUMMARY | 2024-08-13 05:18 | XMS_ITS | Encounter Summary ---
Author Organization 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
--- OUTSIDE RECORDS SUMMARY | 2024-08-13 05:18 | XMS_ITS | Encounter Summary ---
Author Organization [facility] Healthcare Address [address] [place] [address] Care Team Providers Care [place] Name Role Phone Tommie Lu MD Primary Care Provider + Encounter Details Date Type Department Care Team (Late st Contact Info) Description 10/26/2009 12:01 AM CDT - 10/26/2009 11:59 PM CDT Hospital Encounter [facility] Tommie Lu MD [address] [facility] [place] [address] Other dyspnea and respiratory abnormality; Sleep apnea Social History Tobacco Use Types Packs/Day Years Used Date Smoking Tobacco: Never Assessed Sex and Gender Information Value Date Recorded Sex Assigned at Not on file Legal Sex Male 8:13 AM BRANCH LIBRARY 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
--- OUTSIDE RECORDS SUMMARY | 2024-08-13 05:18 | XMS_ITS | Encounter Summary ---
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
--- OUTSIDE RECORDS SUMMARY | 2024-08-13 05:18 | XMS_ITS | Encounter Summary ---
Author Organization [facility] Healthcare Address [address] [place] [address] Care Team Providers Care Systems Security Analyst Name Role Phone Tommie eDal MD Primary Care Provider + Encounter Details Date Type Department Care Team (Late st Contact Info) Description 04/09/2015 6:36 AM CDT - 04/09/2015 11:59 PM CDT Hospital Encounter [facility] Tommie Andrew MD [address] [facility] [place] [address] Memory loss; Chronic maxillary sinusitis; Chronic ethmoidal sinusitis Social History Tobacco Use Types Packs/Day Years Used Date Smoking Tobacco: Former Alcohol Use Standard Drinks/Week Comments Yes 0 (1 standard drink = 0.6 oz pur e alcohol) Sex and Gender Information Value Date Recorded Sex Assigned at Not on file Legal Sex Male 8:13 AM GLASS CLEANER Gender Identity Not on file Sexual [...] 12:08 PM CDT MRI Brain WO ??Acc#: ??[id number] DATE OF EXAM: ??Apr 09 2015 CLINICAL [...] Fax: ??-- Attending Fax: ??-- Attending ID: ??[id number] Requesting ID: ??[id number] Report To 1 ID: ??[id number] Report To 1 Name: ??TOMMIE DEAL Report To 1 FAX: ??-- NextGen Order #: Procedure Note Provider, MD Sanna - 12/12/2016 MRI Brain WO Acc#: [id number] DATE OF EXAM: Apr 09 2015 CLINICAL [...] Fax: -- Attending Fax: -- Attending ID: [id number] Requesting ID: [id number] Report To 1 ID: [id number] Report To 1 Name: TOMMIE DEAL Report To 1 FAX: -- NextGen Order #: Historical Provider MD SQUIRES MRI PROCEDURES Final Result documented in this encounter Visit Diagnoses Diagnosis Memory loss Chronic maxillary sinusitis Chronic ethmoidal sinusitis documented in this encounter Care Teams Systems Security Analyst Relationship Specialty Start Date End Date Tommie Deal MD [address] [facility] [place] [address] PCP - General 12/29/13 11/09/16 documented as of this encounter
--- OUTSIDE RECORDS SUMMARY | 2024-08-13 05:18 | XMS_ITS | Encounter Summary ---
Author Organization [facility] Healthcare Address [address] [place] [address] Care Team Providers Care Wheel Press Clerk Name Role Phone Tommie Lu MD Primary Care Provider + Encounter Details Date Type Department Care Team (Late st Contact Info) Description 11/06/2006 12:13 PM CDT - 11/07/2006 6:00 PM CDT Hospital Encounter [facility] Tommie Lu MD [address] [facility] [place] [address] Social History Tobacco Use Types Packs/Day Years Used Date Smoking Tobacco: Never Assessed Sex and Gender Information Value Date Recorded Sex Assigned at Not on file Legal Sex Male 8:13 AM FAMILY LAW MEDIATOR Gender Identity Not on file Sexual Orientation Not on file documented as of this encounter Plan of Treatment Not on file documented as of this encounter Visit Diagnoses Not on filedocumented in this encounter Care Teams Wheel Press Clerk Relationship Specialty Start Date End Date Tommie Lu MD [address] [place] [address] PCP - General 10/23/06 10/14/07 documented as of this encounter
--- OUTSIDE RECORDS SUMMARY | 2024-08-13 05:18 | XMS_ITS | Encounter Summary ---
Author Organization [facility] Healthcare Address [address] [place] [address] Care Team Providers Care Youth Support Worker Name Role Phone Tommie Lu MD Primary Care Provider + Encounter Details Date Type Department Care Team (Late st Contact Info) Description 12/02/2008 12:01 AM CDT - 12/02/2008 11:59 PM CDT Hospital Encounter [facility] Mary Castillo MD [address] [place] [address] [facility] [place] [address] Special screening for malignant neoplasms, colon; Benign neoplasm of colon; Anorectal polyp; Internal hemorrhoids Social History Tobacco Use Types Packs/Day Years Used Date Smoking Tobacco: Never Assessed Sex and Gender Information Value Date Recorded Sex Assigned at Not on file Legal Sex Male 8:[address] Gender Identity Not on file Sexual Orientation Not on file documented as of this encounter Plan of Treatment Not on file documented as of this encounter Visit Diagnoses Diagnosis Special screening for malignant neoplasms, colon Benign neoplasm of colon Anorectal polyp Internal hemorrhoids Internal hemorrhoids without mention of complication documented in this encounter Care Teams Youth Support Worker Relationship Specialty Start Date End Date Tommie Lu MD [address] [facility] [place] [address] PCP - General 10/22/07 12/28/13 documented as of this encounter
--- OUTSIDE RECORDS SUMMARY | 2024-08-13 05:18 | XMS_ITS | Encounter Summary ---
Author Organization [facility] Healthcare Address [address] [place] [address] Care Team Providers Care Corporate Planner Name Role Phone Tommie Lu MD Primary Care Provider + Encounter Details Date Type Department Care Team (Late st Contact Info) Description 01/27/2017 3:26 PM CDT - 01/27/2017 6:03 PM CDT Emergency [facility] Emergency Department [address] [place] [address] Reilly Elliott MD [address] [place] [address] Discharge Disposition: Discharge to a short term hospital for IP Social History Tobacco Use Types Packs/Day Years Used Date Smoking Tobacco: Former Alcohol Use Standard Drinks/Week Comments Yes 0 (1 standard drink = 0.6 oz pur e alcohol) Sex and Gender Information Value Date Recorded Sex Assigned at Not on file Legal Sex Male 8:13 AM DENTAL SPECIALIST Gender Identity Not on file Sexual [...] 01/27/2017 9:[address] [place] ?[id number] ??Acc#: ??[id number] DATE OF EXAM: ??Jan 27 2017 ?? PROCEDURE: CT [place] ?[id number] HISTORY: Syncope. ??Dizziness. ??High blood pressure. COMPARISON: 07/01/2015 study [facility] also prior study of 12/25/2012. TECHNIQUE: Helical [...] GUTIERRES Requesting: ??DR REILLY ELLIOTT Requesting Fax: ??[phone] Attending Fax: ??-- Attending ID: ??[id number] Requesting ID: ??[id number] Report To 1 ID: ??[id number] Report To 1 Name: ??DR MTAY GUTIERRES Report To 1 FAX: ??-- NextGen Order #: ?? Procedure Note Miscellaneous, Not In File / Provider, MD Sanna - 01/29/[place] [id number] Acc#: [id number] DATE OF EXAM: Jan 27 2017 PROCEDURE: [place] [id number] HISTORY: Syncope. Dizziness. High blood pressure. COMPARISON: 07/01/2015 study [facility] also prior study of 12/25/2012. TECHNIQUE: Helical [...] on: Jan 27 2017 5:16P Transcribed by: [facility] On: Jan 27 2017 5:13P Approved Electronically by: REILLY ESPINOSA M.D. on: Jan 27 2017 5:13P Ordering DR: DR REILLY ELLIOTT Attending DR: DR MATY GUTIERRES Attending: DR MATY GUTIERRES Requesting: DR REILLY ELLIOTT Requesting Attending Fax: -- Attending ID: [id number] Requesting ID: [id number] Report To 1 ID: [id number] Report To 1 Name: DR MATY GUTIERRES Report To 1 FAX: -- NextGen Order #: us Not In File Miscellaneous IMG CT PROCEDURES Mariza l Result * Protime-INR (01/27/2017 4:24 PM CDT) PT 11.8 9.5 - 12.5 sec [facility] ([place]) INR 1.04 0.90 - 1.20 [facility] Comment: Interpretive Data Recommended ranges for Protime [...] LAB BLOOD ORDERABLES Final Result [facility] ([place]) 1 [facility] [place] [address] * aPTT (01/27/2017 4:24 PM CDT) aPTT 27.7 25.0 - 37.0 sec [facility] ([place]) Blood specimen (specimen) 01/27/2017 4:24 PM CDT 01/27/2017 5:29 PM CDT Reilly Elliott MD LAB BLOOD ORDERABLES Final Result Performing Organization Address City/State/[facility] de Phone Number [facility] ([place]) 1 [facility] Department [place] [address] * Differential, auto (01/27/2017 4:24 PM CDT) [...] ORDERABLES Final Result [facility] ([place]) 1 [facility] [place] [address] * (ABNORMAL) CBC with auto differential (01/27/2017 4:24 PM CDT) Pathologist [facility] WBC 8.08 3.80 - 9.80 K/cumm [facility] [...] ORDERABLES Final Result [facility] ([place]) 1 [facility] [place] [address] * (ABNORMAL) Pro B-type natriuretic peptide (01/27/2017 [...] BLOOD ORDERABLES Final Result Performing Organization Address City/State/[facility] Co de Phone Number [facility] [place] 1 [facility] Department [place] [address] * eGFR (01/27/2017 4:24 PM CDT) eGFR >60 mL/min/1.7 3 m2 [facility] ([place]) Comment: Interpretive Data Reference Interval Normal ?>/= 90 mL/min/1.73m2 Mildly decreased* ? 60 - 89 mL/min/1.73m2 Mildly to moderately decreased ?45 - 59 mL/min/1.73m2 Moderately to severely decreased ??30 - 44 mL/min/1.73m2 Severely decreased ?15 - 29 mL/min/1.73m2 Kidney Failure ?< 15 ??mL/min/1.73m2 *Relative to young adult level If -[place] multiply value by 1.16. Estimated glomerular filtration [...] ORDERABLES Final Result [facility] ([place]) 1 [facility] Department [place] [address] * (ABNORMAL) Comprehensive metabolic panel (01/27/2017 4:24 PM CDT) Sodium 122(L) 135 - 145 mmol/L [facility] ([place]) Potassium 3.0(C) 3.5 - 5.1 mmol/L [facility] ([place]) Comment:Critical result call ed to and read back by Cortney Miller (ER) on 01/27/2017 17:00:29 CDT to [id number]. Chloride 86(L) 97 - 110 mmol/L [facility] [...] ORDERABLES Final Result [facility] ([place]) 1 [facility] Department [place] [address] * Troponin T (01/27/2017 4:24 PM CDT) Troponin T <0.01 0.00 - 0.06 ng/mL [facility] Comment: Interpretive Data Troponin table: ? Negative ? 0.00-0.06 ng/ml ? Indeterminate ?0.07-0.10 ng/ml ? Consistent with Myocardial Injury ?Greater than 0.10 ng/ml ?? Current interpretive data was last revised on 2014 Blood specimen (specimen) 01/27/2017 4:24 PM CDT 01/27/2017 4:28 PM CDT Reilly Elliott MD LAB BLOOD ORDERABLES Final Result Performing Organization Address City/[facility] Co de Phone Number [facility] ([place]) 1 [facility] [place] [address] * Ethanol (01/27/2017 4:24 PM CDT) Ethanol <10 <=10 mg/dL [facility] ([place]) Comment: Interpretive Data Normal: ??Less than 10 mg/dL = No Ethanol detected For medical purposes Current interpretive data was last revised on 2014. Blood specimen (specimen) 01/27/2017 4:24 PM CDT 01/27/2017 4:28 PM CDT Reilly Elliott MD LAB BLOOD ORDERABLES Final Result Performing Organization Address City/[facility] Co de Phone Number [facility] ([place]) 1 [facility] [place] [address] * DISCHARGE LABORATORY CUMULATIVE REPORT (01/27/2017 12:00 [...] on filedocumented in this encounter Care Teams Corporate Planner Relationship Specialty Start Date End Date Tommie Lu MD [address] [facility] [place] [address] PCP - General 11/10/16 11/27/17 documented as of this encounter
--- OUTSIDE RECORDS SUMMARY | 2024-08-13 05:18 | XMS_ITS | Encounter Summary ---
Author Organization [facility] Healthcare Address [address] [place] [address] Care Team Providers Care Nicking Machine Operator Name Role Phone Tommie Lu MD Primary Care Provider + Encounter Details Date Type Department Care Team (Late st Contact Info) Description 12/01/2009 12:01 AM CDT - 12/01/2009 11:59 PM CDT Hospital Encounter [facility] Tommie Lu MD [address] [place] [address] Obstructive sleep apnea; Other dyspnea and respiratory abnormality Social History Tobacco Use Types Packs/Day Years Used Date Smoking Tobacco: Never Assessed Sex and Gender Information Value Date Recorded Sex Assigned at Not on file Legal 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
--- OUTSIDE RECORDS SUMMARY | 2024-08-13 05:19 | XMS_ITS | Clinical Summary ---
Author Organization [facility] Address [address] [place] [address]. [place] [address] [place] [address] Care Team Providers Care Jerker Name Role Phone Ganesh Prince MD Primary Care Provider [phone] Allergies No known active allergies Medications busPIRone (BUSPAR) 5 MG tablet Take 1 tablet (5 mg total) by mouth 2 (two) times daily. 04/18/2023 Active donepezil (ARICEPT) 10 MG Tab Take 1 tablet (10 mg total) by mouth daily. 05/22/2023 Active escitalopram (LEXAPRO) 20 MG tablet 07/11/2023 Active QUEtiapine (SEROQUEL) 25 MG tablet Take 1 tablet (25 mg total) by mouth 2 (two) times daily. 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 Gender Identity Not on file Sexual Orientation Not on file Last Filed Vital Signs Vital Sign Reading Time Taken Comments Blood Pressure 110/74 10/29/2023 2:30 PM CDT Pulse 102 10/29/2023 2:30 PM CDT Temperature 37.1 ??C (98.8 ??F) 10/29/2023 2:30 PM CD T Respiratory Rate - - Oxygen Saturation 100% 10/29/2023 2:30 PM CDT Inhaled Oxygen Concentration - - Weight 77.2 kg (170 lb 3.2 oz) 10/29/2023 2:30 P M CDT Height 167.6 cm (5' 6 ) 10/29/2023 2:30 PM CDT Body Mass Index 27.47 10/29/2023 2:30 PM CDT Plan of Treatment Health Maintenance Due Date Last Done Comments Colorectal Cancer Screening Colonoscopy (10 Years) 1958 Hepatitis C 1976 Zoster Vaccines (1 of 2) 2008 DTaP, Tdap and Td Vaccines (2 - Td or Tdap) 04/20/2018 04/20/2008 AAA SCREENING 2023 Pneumococcal Vaccine: 65+ Years (1 of 1 - PCV) 2023 COVID-19 Vaccine (3 - season) 2024 12/09/2020, 11/03/2020 Influenza Adult (#1) 2024 05/18/2022, 05/15/2021, 06/20/2018, Additional history exists RSV Immunization or 60+ Years (1 - 1-dose 75+ series) 2033 Meningococcal Vaccine Aged Out No analisa yung eligible based on patient's age to complete this topic Pneumococcal Vaccine: Pediatrics (0 to 5 Years) and At-Risk Patients (6 to 64 Years) Aged Out No longer eligible based on patient's age to complete this topic RSV Immunizations Under 20 Months Aged Out No longer eligible based on patient's age to complete this topic Insurance [employer]IC[employer] Care Teams Jerker Relationship Specialty Start Date End Date Ganesh Prince MD [address] [address] PCP - General INTERNAL MEDICINE 10/19/23
--- OUTSIDE RECORDS SUMMARY | 2024-08-13 05:19 | XMS_ITS | Encounter Summary ---
Author Organization [facility] Address [address] [place] [address]. [place] [address] [place] [address] Care Team Providers Care Sales Administration Manager Name Role Phone Ganesh Prince MD Primary Care Provider [phone] Encounter Details Date Type Department Care Team (Late st Contact Info) Description 12/21/2023 Results Notification [facility] Medical [facility] Orthopedic & Sports Medicine - [place] [address] [place] [address] Jaquan Beard MD [address] [place] [address] Social History Tobacco Use Types Packs/Day Years Used Date Smoking Tobacco: Former Cigarettes Smokeless Tobacco: Never Alcohol Use Standard Drinks/Week Comments Not Currently 0 (1 standard drink = 0.6 oz pur e alcohol) PHQ-2 Answer Date Recorded Patient Health Questionnaire-2 Score 0 10/29/2023 Sex and Gender Information Value Date Recorded Sex Assigned at Not on file 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 documented in this encounter Plan of Treatment Not on file documented as of this encounter Visit Diagnoses Not on filedocumented in this encounter Care Teams Sales Administration Manager Relationship Specialty Start Date End Date Ganesh Prince MD [address] [facility] [address] [place] [address] PCP - General INTERNAL MEDICINE 10/19/23 documented as of this encounter
--- OUTSIDE RECORDS SUMMARY | 2024-08-13 05:19 | XMS_ITS | Encounter Summary ---
Author Organization [facility] Address [address] [place] [address]. [place], [place] [address] [place] [address] Care Team Providers Care Commissioner Of Conciliation Name Role Phone Ganesh Prince MD Primary Care Provider [phone] Encounter Details Date Type Department Care Team (Latest Contact Info) Description 12/17/2023 Travel Social History Tobacco Use Types Packs/Day Years Used Date Smoking Tobacco: Former Cigarettes Smokeless Tobacco: Never Alcohol Use Standard Drinks/Week Comments Not Currently 0 (1 standard drink = 0.6 oz pur e alcohol) PHQ-2 Answer Date Recorded Patient Health Questionnaire-2 Score 0 10/29/2023 Sex and Gender Information Value Date Recorded Sex Assigned at Not on file 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
--- OUTSIDE RECORDS SUMMARY | 2024-08-13 05:20 | XMS_ITS | Encounter Summary ---
Author Organization [facility] Address [address] [place] [address]. [place] [address] [place] [address] Care Team Providers Care Community Services Coordinator Name Role Phone Ganesh Prince MD Primary Care Provider [phone] Reason for Referral * Imaging (Routine) - Closed Specialty Diagnoses / Procedures Referred By Samira yu Referred To Contact RADIOLOGY Diagnoses Keratoma Left foot pain Procedures MRI FOOT LT WO CON Sunny Santamaria MD [address] [place] [address] Phone: tel: fax: Referral ID Status Reason Start Date Expiration Date Visits Re quested Visits Authorized [id number] Closed 11/08/2023 12/07/2024 1 1 Reason for Visit * Reason Onset Date Comments Orders 11/08/2023 Encounter Details Date Type Department Care Team (Late st Contact Info) Description 11/08/2023 Telephone [facility] Medical Group Orthopedic & Sports Medicine - [place] [address] [place] [address] [phone] Sunny Santamaria MD [address] [place] [address] Orders Social History Tobacco Use Types Packs/Day Years Used Date Smoking Tobacco: Former Cigarettes Smokeless Tobacco: Never Alcohol Use Standard Drinks/Week Comments Not Currently 0 (1 standard drink = 0.6 oz pur e alcohol) PHQ-2 Answer Date Recorded Patient Health Questionnaire-2 Score 0 10/29/2023 Sex and Gender Information Value Date Recorded Sex Assigned at Not on file 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 MRI order was placed and she should be able to call scheduling to schedule MRI. * Lillian Breen - 11/08/2023 12:06 PM CDTSummary: MRI- LT foot Spouse georgiana called in and stated that she was told that her is to be having an MRI of the LT foot over at [facility]. She called the number that was given to her for scheduling and they do not have an order to have an MRI done. LT foot Please advise [phone] documented in this encounter Plan of Treatment Not on file documented as of this encounter Results * MRI FOOT LT WO CON (12/17/2023 2:45 PM CDT) Anatomical Region Laterality Modality Foot Magnetic Resonan ce 12/19/2023 8:20 AM CDT Impressions 12/19/2023 8:29 AM CDT IMPRESSION: 1. ?? Limited by significant motion. 2. ??Palpable lump marker placed just lateral and plantar to the fifth metatarsal base. ??No distinct mass at this site, however there is a focal 9 mm area of T2 hyperintensity which could be related to soft tissue swelling, tenosynovitis, or a ruptured ganglion cyst along the lateral edge of the peroneus brevis as it crosses under the cuboid. 3. ??Findings concerning for chronic plantar fasciitis. 4. ??No acute osseous abnormality. ??No fernando tendon or ligament injury is identified. Referred By: SUNNY SANTAMARIA Interpreted By: David Neville MD, 12/19/2023 8:20 AM Narrative 12/19/2023 8:29 AM CDT EXAMINATION: MRI LEFT FOOT WITHOUT CONTRAST EXAM DATE: 12/17/2023 2:10 PM REASON FOR EXAM: ??Soft tissue mass, foot, deep ?? Foot pain COMPARISON: Radiograph 10/29/2023 TECHNIQUE: Multiplanar multisequence imaging of the foot without intravenous contrast. FINDINGS: Extensive motion artifact limits the exam. Lisfranc ligament intact. Thickening of the central cord plantar fascia concerning for chronic plantar fasciitis. At the edge the [id number], anterior talofibular ligament intact. ??Dorsal talonavicular ligament intact. ??Deltoid ligament grossly intact. No evidence of an acute tendon injury. ??No significant tenosynovitis. Marrow/cartilage: No acute osseous abnormality. ??No suspicious bone lesion. Subcortical cyst of the lateral cuneiform, possibly related to osteoarthritis. No significant intrinsic muscular atrophy or mass. Fat of the sinus Tarsi is preserved. Palpable lump marker placed just lateral and plantar to the fifth metatarsal base. ??No distinct mass at this site, however there is a focal 9 mm area of T2 hyperintensity which could be related to soft tissue swelling, tenosynovitis, or a ruptured ganglion cyst along the lateral edge of the peroneus brevis as it crosses under the cuboid. Procedure Note David Neville MD - 12/19/2023 EXAMINATION: MRI LEFT FOOT WITHOUT CONTRAST EXAM DATE: 12/17/2023 2:10 PM REASON FOR EXAM: Soft tissue mass, foot, deep Foot pain COMPARISON: Radiograph 10/29/2023 TECHNIQUE: Multiplanar multisequence imaging of the foot withoutintravenous contrast. FINDINGS: Extensive motion artifact limits the exam. Lisfranc ligament intact. Thickening of the central cord plantar fascia concerning for chronicplantar fasciitis. At the edge the [id number], anterior talofibular ligament intact.Dorsal talonavicular ligament intact. Deltoid ligament grossly intact. No evidence of an acute tendon injury. No significant tenosynovitis. Marrow/cartilage: No acute osseous abnormality. No suspicious bonelesion. Subcortical cyst of the lateral cuneiform, possibly related toosteoarthritis. No significant intrinsic muscular atrophy or mass. Fat of the sinus Tarsi is preserved. Palpable lump marker placed just lateral and plantar to the fifthmetatarsal base. No distinct mass at this site, however there is a focal9 mm area of T2 hyperintensity which could be related to soft tissueswelling, tenosynovitis, or a ruptured ganglion cyst along the lateraledge of the peroneus brevis as it crosses under the cuboid. IMPRESSION: 1. Limited by significant motion. 2. Palpable lump marker placed just lateral and plantar to the fifthmetatarsal base. No distinct mass at this site, however there is a focal9 mm area of T2 hyperintensity which could be related to soft tissueswelling, tenosynovitis, or a ruptured ganglion cyst along the lateraledge of the peroneus brevis as it crosses under the cuboid. 3. Findings concerning for chronic plantar fasciitis. 4. No acute osseous abnormality. No fernando tendon or ligament injury isidentified. Referred By: SUNNY SANTAMARIA Interpreted By: David Neville MD, 12/19/2023 8:20 AM Sunny Santamaria MD MRI Final Result documented in this encounter Visit Diagnoses Diagnosis Left foot pain- Primary Pain in limb Keratoma Acquired keratoderma Keratoma Acquired keratoderma Left foot pain Pain in limb documented in this encounter Care Teams Community Services Coordinator Relationship Specialty Start Date End Date Ganesh Prince MD [address] [place] [address] PCP - General INTERNAL MEDICINE 10/19/23 documented as of this encounter
--- OUTSIDE RECORDS SUMMARY | 2024-08-13 05:20 | XMS_ITS | Encounter Summary ---
Author Organization [facility] Address [address] [place] [address]. 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 He has complaints of a corn on his foot. He feels it is altering his gait. It has been saved down, and he's tried orthotics. Most of the history is from the patient's due to the patient's dementia. Vitals: Filed Vitals: 10/29/23 1430 BP: 110/74 Pulse: (!) 102 Temp: 98.8 ??F (37.1 ??C) SpO2: 100% Weight: 77.2 kg (170 lb 3.2 oz) Height: 1.676 m (5' 6 ) Physical Exam: Physical Exam Constitutional: He is oriented to person, place, and time. He appears well- developed and well-nourished. HENT: Head: Normocephalic. Eyes: EOM are normal. Cardiovascular: Extremities perfused. Pulmonary/Chest: Effort normal. No respiratory distress. Neurological: He is alert and oriented to person, place, and time. Psychiatric: He has a normal mood and affect. Ortho: LLE: Active ankle eversion, inversion, dorsiflexion, and plantarflexion. There is a focal hyperkeratosis at the lateral foot adjacent to the fifth metatarsal base at the junction of the glabrous and dorsal skin. It is quite tender. Minimal erythema surrounding it. OXR LT FOOT M3V PROCEDURE: OXR LT FOOT M3V VIEWS: 3 DATE: 10/29/23 CLINICAL INDICATION: left foot pain FINDINGS: Mild degenerative changes of the midfoot. Slight irregularity at the dorsal talonavicular joint which may represent sequela of remote trauma. Mild calcification of the peripheral arteries. No fractures. IMPRESSION: No acute findings left foot. Assessment: Intractable plantar keratosis Plan: I shaved down his plantar keratosis in clinic. I am ordering a MRI of the foot to further evaluate.This lesion is persistently symptomatic. He has orthotics which are fitting reasonably. They are not helping very much. He may require surgical excision. Procedures Summary: Ganesh was seen today for new patient. Diagnoses and all orders for this visit: Keratoma ROS: ROS Medications: Current Outpatient Medications: busPIRone (BUSPAR) 5 MG tablet, Take 1 tablet (5 mg total) by mouth 2 (two) times daily., Disp: , Rfl: donepezil (ARICEPT) 10 MG Tab, Take 1 tablet (10 mg total) by mouth daily., Disp: , Rfl: escitalopram (LEXAPRO) 20 MG tablet, , Disp: , Rfl: QUEtiapine (SEROQUEL) 25 MG tablet, Take 1 tablet (25 mg total) by mouth 2 (two) times daily., Disp: , Rfl: Allergies: Review of patient's allergies indicates: No Known Allergies Medical History: Past Medical History: Diagnosis Date Dementia ([facility]) Surgical History: History reviewed. No pertinent surgical history. Social History: Social History Socioeconomic History Marital status: Tobacco Use Smoking status: Former Types: Cigarettes Smokeless tobacco: Never Vaping Use Vaping Use: Never used Substance and Sexual Activity Alcohol use: Not Currently Drug use: Never Family History: Family History Problem Relation Name Age of Onset Diabetes Mother By signing below, Marnie Bennett, attest that this documentation has been prepared in the presence of and under the direction of Dr. Sunny Beard MD. Provider Attestation: SUNNY Bennett MD, personally performed the services described in thisdocumentation. All medical record and diagnosis entries made by the scribe were at my direction andin my presence. I have reviewed the chart and agree that the record reflects my personal performance and is accurate and complete. documented in this encounter Plan of Treatment Not on file documented as of this encounter Visit Diagnoses Diagnosis Keratoma- Primary Acquired keratoderma documented in this encounter Care Teams Staff Reporter Relationship Specialty Start Date End Date Ganesh Prince MD [address] [place] [id number] PCP - General INTERNAL MEDICINE 10/19/23 documented as of this encounter
--- OUTSIDE RECORDS SUMMARY | 2024-08-13 05:20 | XMS_ITS | Encounter Summary ---
Author Organization [facility] Address [address] [place] [address]. [place], [place] [address] [place] [address] Care Team Providers Care Commercial Diver Name Role Phone Ganesh Prince MD Primary Care Provider [phone] Reason for Referral * Imaging (Routine) - Closed Specialty Diagnoses / Procedures Referred By Contac t Referred To Contact RADIOLOGY Diagnoses Keratoma Left foot pain Procedures MRI FOOT LT WO CON Sunny Santamaria MD [address] [place] [address] Phone: tel: fax: Referral ID Status Reason Start Date Expiration Date Visits Re quested Visits Authorized [id number] Closed 11/08/2023 12/07/2024 1 1 Reason for Visit * Imaging (Routine) - Closed Specialty Diagnoses / Procedures Referred By Samira yu Referred To Contact RADIOLOGY Diagnoses Keratoma Left foot pain Procedures MRI FOOT LT WO CON Sunny Santamaria MD [address] [place] [address] Phone: tel: fax: Referral ID Status Reason Start Date Expiration Date Visits Re quested Visits Authorized [id number] Closed 11/08/2023 12/07/2024 1 1 Encounter Details Date Type Department Care Team (Latest Contact Info) Description 12/17/2023 1:46 PM CDT - 12/17/2023 11:59 PM CDT Hospital Encounter 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 04/18/2023 donepezil (ARICEPT) 10 MG Tab Take 1 tablet (10 mg total) by mouth daily. 05/22/2023 escitalopram (LEXAPRO) 20 MG tablet 07/11/2023 QUEtiapine (SEROQUEL) 25 MG tablet Take 1 tablet (25 mg total) by mouth 2 (two) times daily. 09/19/2023 documented as of this encounter Plan of Treatment Not on file documented as of this encounter Procedures Procedure Name Priority Date/Time Associated Diagnosis Comments MRI FOOT LT WO CON Routine 12/17/2023 2: 45 PM CDT Keratoma Left foot pain documented in this encounter Results * MRI FOOT LT [...] chronic plantar fasciitis. At the edge the [id number], anterior talofibular ligament intact. ??Dorsal talonavicular ligament [...] for chronicplantar fasciitis. At the edge the [id number], anterior talofibular ligament intact.Dorsal talonavicular ligament intact. [...] By: David Neville MD, 12/19/2023 8:20 AM us Sunny Santamaria MD MRI Final Result documented in this encounter Visit Diagnoses Diagnosis Keratoma Acquired keratoderma Left foot pain Pain in limb documented in this encounter Care Teams Commercial Diver Relationship Specialty Start Date End Date Ganesh Prince MD [address] [address] PCP - General INTERNAL MEDICINE 10/19/23 documented as of this encounter
--- OUTSIDE RECORDS SUMMARY | 2024-08-13 05:20 | XMS_ITS | Encounter Summary ---
Author Organization [facility] Address [address] [place] [address]. [place], [place] [address] [place] [address] Care Team Providers Care Supervisor Wash [place] Name Role Phone Ganesh Prince MD Primary Care Provider Encounter Details Date Type Department Care Team (Latest Contact Info) Description 10/29/2023 Travel Social History Tobacco Use Types Packs/Day Years Used Date Smoking Tobacco: Former Cigarettes Smokeless Tobacco: Never Alcohol Use Standard Drinks/Week Comments Not Currently 0 (1 standard drink = 0.6 oz pur e alcohol) PHQ-2 Answer Date Recorded Patient Health Questionnaire-2 Score 0 10/29/2023 Sex and Gender Information Value Date Recorded Sex Assigned at Not on file 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
--- OUTSIDE RECORDS SUMMARY | 2024-08-13 05:20 | XMS_ITS | Encounter Summary ---
Author Organization [facility] Address [address] [place] [address]. 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 ??Slight irregularity at the dorsal talonavicular joint which may represent sequela of remote trauma. ??Mild calcification of the peripheral arteries. ??No fractures. IMPRESSION: No acute findings left foot. us Jaquan Beard MD GENERAL IMAGING Final Result documented in this encounter Visit Diagnoses Diagnosis Left foot pain- Primary Pain in limb documented in this encounter Care Teams Art Objects Supervisor Relationship Specialty Start Date End Date Ganesh Prince MD [address] [address] PCP - General INTERNAL MEDICINE 10/19/23 documented as of this encounter
== END 2024-08-06 12:50 ==
PROVIDERS: Emergency Provider Emergency Medicine
DX: R07.9 Chest pain, unspecified (principal); K59.00 Constipation, unspecified; F03.90 Unspecified dementia, unspecified severity, without behavioral disturbance, psychotic disturbance, mood disturbance, and anxiety; Z87.891 Personal history of nicotine dependence; I49.1 Atrial premature depolarization; R94.31 Abnormal electrocardiogram [ECG] [EKG]
CPT/HCPCS: 36415; 71045; 71275; 74174; 80053; 84484; 85025; 85610; 85730; 93005; 99284; Q9967

== ENCOUNTER 2024-08-22 14:33 | Emergency (ER) | payer MEDICARE, OTHER, SELFPAY ==
--- NOTE | ~2024-08-22 | XR_ITS ---
XR elbow RT 2V 08/22/2024 16:25 Indication: Elbow pain after fall Procedure: 3 views right elbow Comparison: No prior studies for comparison. Findings: There are ossific densities along the lateral humeral epicondyles with adjacent soft tissue swelling, consistent with avulsion fractures, possibly acute. Correlate for point tenderness. No sig nificant joint effusion. No other fracture identified. Impression: 1: Ossific densities at the lateral humeral epicondyle, consistent with avulsion fracture, possibly a cute. Correlate for point tenderness. Reviewed, dictated and finalized at location B. ESS COACH Impression: 1: Ossific densities at the lateral humeral epicondyle, consistent with avulsio n fracture, possibly acute. Correlate for point tenderness.
--- NOTE | ~2024-08-22 | XR_ITS ---
EXAM: XR shoulder RT min 2V DATE: 08/22/2024 16:25 HISTORY: fall . COMPARISON: CT cap 08/06/2024. FINDINGS: Normal mineralization. No fracture or dislocation. No lytic or blastic lesion. Mild degene rative change in the AC joint and glenohumeral joint. No erosion or periosteal change. Wires project over the midline, not definitely seen in the prior CT, presumably external artifact. IMPRESSION: No acute osseous finding in the right shoulder. Reviewed, dictated and finalized at location K. SAW OPERATOR
[2024-08-22 14:32] VITALS: BP 117/65; PULSE 86; RESP 15; TEMP 36.6; O2SAT 97
--- NOTE | 2024-08-22 15:28 | PC.NURSE ---
states pt is on hospice for dementia
[2024-08-22] MEDS: LORazepam INJ (*CRX) 2 MG/ML VIAL 1 MG IM (15:46)
[2024-08-22] MEDS: MORPHINE SULFATE INJ (*CRX) 10 MG/ML AMP IM (15:49)
--- NOTE | 2024-08-22 15:49 | PC.NURSE ---
Unable to obtain VS on pt
--- NOTE | 2024-08-22 18:20 | PC.NURSE ---
Pt and pt family refusing arm sling at this time
[2024-08-22 18:23] VITALS: BP 103/59; PULSE 67; RESP 14; O2SAT 100
--- NOTE | 2024-08-22 18:47 | ED.EXTPRO ---
HPI - Extremity Problem General Chief complaint: Extremity Problem,Nontraumatic Stated complaint: RUE infection Time Seen by Provider: 08/22/24 15:06 History of Present Illness HPI Narrative: 63-year-old male with a history of advanced dementia. He is DNR/DNI and comfort measures only. [facility] for concerns of right upper extremity injury. Patient potentially fell at the assisted, patient does have a history of very severe agitation and takes morphine and Ativan at his skilled care facility. His is present at bedside for collateral formation. Patient is alert oriented x1 to his name only which is at his baseline. Patient has apparently fall onto his right side and injured his right arm. Patient denies any pain, does seem to not favor using his right upper extremity is much. Is at his baseline mentation per nurse and family at bedside. Patient of self is not able to provide any collateral information secondary to his advanced dementia. Related Data Allergies Allergy/AdvReac Type Severity Reaction Status Date / Time No Known Allergies Allergy Verified 08/22/24 14:51 Review of Systems Review of Systems: ROS unobtainable: Yes unobtainable due to mental status PMFSH Social History Social History Smoking status: Former smoker Alcohol intake: never Exam Narrative: GENERAL: [Well-appearing, well-nourished, and in no acute distress.] HEAD: [Normocephalic, atraumatic.] EYES: [PERRLA and EOMI.] ENT: Nares clear, no rhinorrhea or epistaxis. Mucous membranes moist. NECK: Supple. CHEST: [Clear to auscultation. No respiratory distress.] HEART: [Regular rate and rhythm]. No murmur heard. [Normal peripheral pulses.] ABDOMEN: [Soft, nondistended], [nontender], [No rigidity or guarding] EXTREMITIES: Tenderness to palpation over the right lateral upper extremity near the elbow, no obvious step-offs or deformities. Passive range of motion is full, active range of motion seems full but difficult to fully evaluate secondary to patient's level of mentation. No obvious step-offs or deformities to his extremities. Ambulating without assistance. SKIN: Warm, dry, no rash. NEURO: [No focal deficits]. Alert and oriented x1 which is his baseline mentation PSYCH: Agitated Course Vital Signs Vital signs: Vital Signs Temperature 36.6 C 08/22/24 14:32 Pulse Rate 86 08/22/24 14:32 Respiratory Rate 15 08/22/24 14:32 Blood Pressure 117/65 08/22/24 14:32 Pulse Oximetry 97 08/22/24 14:32 Oxygen Delivery Room Air 08/22/24 14:32 Temperature 36.6 C 08/22/24 14:32 Pulse Rate 67 08/22/24 18:23 Respiratory Rate 14 08/22/24 18:23 Blood Pressure 103/59 L 08/22/24 18:23 Pulse Oximetry 100 08/22/24 18:23 Oxygen Delivery Room Air 08/22/24 14:32 MDM - Extremity (Nontraumatic) MDM Narrative Medical decision making narrative: 63-year-old male patient who is presently DNR/DNI and comfort care measures only status. Resides at a skilled care facility. Patient is alert oriented x1 secondary to advanced dementia and at baseline. His is present at bedside states that he has been acting appropriately which is normally very agitated. Patient received morphine and Ativan at his skilled care facility to while undergoing comfort care. Patient reportedly fell onto his right upper extremity today although he has no visible external signs of trauma. Does have some tenderness in that area without any overt skin changes or overlying signs of infection. X-rays were obtained of the right shoulder and right elbow. He was given morphine and Ativan secondary to his degree of agitation and discomfort. His vital signs reassuring he has strong symmetric pulses throughout both arms. X-ray show potentially avulsion fracture of the lateral humeral epicondyle. I relayed this to the family member at bedside. She does not believe he would do well with splint or cast secondary to his level of agitation and dementia. Alternative options were discussed including a sling for comfort and pain controlling medications to go home with. He will be referred to Orthopedic surgery although patient is comfort care only and based on his images likely will not need any kind of operative intervention for healing. Patient is stable for discharge back to his care facility at this time. Discharge Plan Discharge Clinical Impression: Fracture of lateral epicondyle of humerus Patient Disposition: Hospice - Home Condition: Stable Instructions: Elbow Fracture (DC), How to Use a Sling (ED) Additional Instructions: Lateral humeral epicondyle avulsion fracture. We will provide you a sling for comfort as casting and splint would be too uncomfortable for you. We will send you home with some pain medications. Follow up with your PCP. will refer you to orthopedics for eval if pain becomes worse. In addition to your morphine at home we have also provided Tylenol and Toradol for pain control. Patient Language: Ethiopian Prescriptions: New acetaminophen [Tylenol Extra Strength] 500 mg tablet 1,000 mg PO TID PRN (Reason: pain) Qty: 30 0RF ketorolac 10 mg tablet 10 mg PO Q8H PRN (Reason: pain) 5 Days Qty: 20 0RF Rx Instructions: maximum total duration of 5 days from all oral, intranasal, or parenteral formulations Follow-up/Referrals: Alexei Colin MD [Physician] - 1 Week (Lateral humeral epicondyle fracture) UNKNOWN,DOCTOR [Primary Care Provider] - Time of Disposition: 18:01
--- NOTE | 2024-08-22 18:55 | PC.NURSE ---
Attempted to call report to [facility], received no answer
[2024-08-22] MEDS: MORPHINE SULFATE (*CRX) 15 MG TABCR PO (20:34)
== END 2024-08-22 23:01 | disposition hospice, home (50) ==
PROVIDERS: Emergency Provider Student in an Organized Health Care Education/Training Program
DX: S42.431A Displaced fracture (avulsion) of lateral epicondyle of right humerus, initial encounter for closed fracture (principal); Z51.5 Encounter for palliative care; F03.911 Unspecified dementia, unspecified severity, with agitation; Z87.891 Personal history of nicotine dependence; W19.XXXA Unspecified fall, initial encounter
CPT/HCPCS: 73030; 73070; 96372; 99284; A4565; A9270; J2060; J2270

== ENCOUNTER 2024-08-25 15:39 | Emergency (ER) | payer MEDICARE, OTHER, SELFPAY ==
--- NOTE | ~2024-08-25 | CT_ITS ---
History: Fall PROCEDURE: CT cervical spine without intravenous contrast. COMPARISON: None TECHNIQUE: Multiple contiguous axial images of the cervical spine were performed without the administration of i ntravenous contrast. DLP: 220 mGy-cm FINDINGS: Preservation of the normal curvature of the cervical spine is identified. Significant degenerative disease is identified, with osteophyte formation, disc space narrowing, endp late changes and vacuum phenomena. Significant facet hypertrophy is also noted. No acute fractures are present. Left apical scarring. The remainder of the lung apices are unremarkable. No soft tissue abnormality is present. The airway is patent. Impression: Severe degenerative disease, without acute fracture. Reviewed, dictated and finalized at location A. [employer] DRIVER Impression: Severe degenerative disease, without acute fracture.
--- NOTE | ~2024-08-25 | CT_ITS ---
History: Fall PROCEDURE: CT head without contrast. COMPARISON: None TECHNIQUE: Axial imaging of the head performed from the skull base to the vertex without IV contrast. Sagittal a nd coronal reformations obtained. DLP: 1362 mGy-cm FINDINGS: The ventricles are dilated. The dilatation of the ventricles is out of portion to the degree of sulcal prominence. Decreased attenuation is identified within the periventricular white matter, possibly secondary to mi crovascular ischemic disease, but with the degree of ventriculosulcal disproportion this may represen t hydrocephalus. No ventricular obstruction visualized. There is no mass, mass effect or midline shift. There is no abnormal extra-axial fluid collection or intracranial hemorrhage. Visualized paranasal sinuses are clear. The mastoid air cells are well aerated. No acute displaced fractures within the overlying cranium. Impression: No acute intracranial hemorrhage or suspicious mass effect. 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 Reviewed, dictated and finalized at location A. SECURITY ADMINISTRATOR Impression: No acute intracranial hemorrhage or suspicious mass effect. 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
[2024-08-25 15:41] VITALS: BP 114/93; PULSE 93; RESP 20; TEMP 36.5; O2SAT 96
[2024-08-25 18:00] VITALS: BP 132/80; PULSE 72; RESP 16; TEMP 36.6; O2SAT 98
[2024-08-25] MEDS: MORPHINE SULFATE (*CRX) 4 MG/ML INJ (18:13)
[2024-08-25] MEDS: MORPHINE SULFATE (*CRX) 2 MG/ML INJ (18:13)
[2024-08-25] MEDS: LORazepam INJ (*CRX) 2 MG/ML VIAL (18:15)
--- NOTE | 2024-08-25 18:15 | PC.NURSE ---
verbal order for morphine 6mg IM and lorazepam 1mg IM for agitation per DR. Russ
--- NOTE | 2024-08-25 18:56 | PC.NURSE ---
sleeping on cot at bedside
--- NOTE | 2024-08-25 19:12 | PC.NURSE ---
Assumed care of pt from TOBI Lemon at this time. Pt resting in bed with family member at bedside.
--- NOTE | 2024-08-25 19:29 | ED_ITS ---
HPI - General Adult General Chief complaint: Fall Stated complaint: fall Time Seen by Provider: 08/25/24 17:28 Source: family Mode of arrival: EMS Limitations: dementia History of Present Illness HPI narrative: Patient presents from [facility] unit at [facility] where he resides due to a diagnosis of early-onset dementia secondary to alcohol abuse as well as Parkinson's. He has had these diagnoses for the last 7 and half years and is currently on hospice due to these conditions. He has started to have more falls recently, reports 5 in the past 6 weeks. He had a witnessed fall today by staff as he was noted to loses balance he was walking on the hallway and staff saw him his head on a railing. At baseline he is alert and oriented x1. He was initially combative verbally on cords and lines for both EMS as well as upon arrival to the emergency department. He had previously been on morphine and Ativan as some of his medications for hospice and behavioral issues and these were changed to Haldol today due to restlessness. Patient had recently presents to the emergency department after a fall and was noted to have a chip fracture in right elbow per . Related Data Allergies Allergy/AdvReac Type Severity Reaction Status Date / Time No Known Allergies Allergy Verified 08/22/24 14:51 [facility] Past Medical History Medical History (Updated 08/26/24 @ 00:01 by Yamilka Iglesias) Avulsion fracture of bone R elbow History of alcohol abuse Parkinson disease Dementia Hospice care patient [facility] Social History Social History Social History: POLST signed 07/22/24 lists DNR; comfort-focused treatment CUrrently on hospice Smoking status: Former smoker Alcohol intake: former Exam Narrative: GENERAL: Well-appearing, well-nourished, and in no acute distress. Sleeping comfortably HEAD: Hematoma. EYES: Non injected, non icteric. Pinpoint pupils. ENT: Nares clear, no rhinorrhea or epistaxis. NECK: Supple. No tenderness to palpation of midline C spine, no bony step offs CHEST: No respiratory distress. Appropriate saturation. HEART: Regular rate and rhythm. . ABDOMEN: Soft, nondistended. Soft, non tender. Pelvis stable to compression. EXTREMITIES: Normal range of motion. No lower extremity edema. SKIN: Warm, dry, no rash. Ecchymosis along right hip. NEURO: No abnormal movements appreciated. Responds to painful stimuli. Course Vital Signs Vital signs: Vital Signs Temperature 97.7 F 08/25/24 15:41 Pulse Rate 93 08/25/24 15:41 Respiratory Rate 20 08/25/24 15:41 Blood Pressure 114/93 H 08/25/24 15:41 Pulse Oximetry 96 08/25/24 15:41 Oxygen Delivery Room Air 08/25/24 15:41 Temperature 97.9 F 08/25/24 18:00 Pulse Rate 71 08/25/24 20:28 Respiratory Rate 16 08/25/24 20:28 Blood Pressure 111/83 08/25/24 20:28 Pulse Oximetry 97 08/25/24 20:28 Oxygen Delivery Room Air 08/25/24 15:41 Medical Decision Making MDM Narrative Medical decision making narrative: Patient presents after a witnessed fall. Has had several recnt falls. On hospice, in memory care unit for frequent falls. Diagnosis dementia and Parkinsons. In the emergency department he is afebrile with acceptable vital signs, slightly high diastolic blood pressure but improved on repeat assessment. Acetaminophen was ordered for pain before realizing the patient had received morphine. This has made him somnolent with pinpoint pupils but on my assessment he is not hypoxic and is protecting his airway. Per review of pen[facility]entiary documentation, patient is on donepezil, escitalopram, memantadine but not on anticoagulation. An x-ray of the pelvis/right hip had been ordered based on some ecchymosis that was appreciated. It is believed this was due to previous fall although no previous imaging of this area had been obtained during his recent visits. X-ray imaging had been ordered however the patient's declined this. This is reasonable given he is a hospice patient and a previous injury. Other imaging negative for acute process. Discharged back to the facility in stable condition . Differential Diagnosis Differential Diagnosis: c spine fracture, intracranial hemorrhage; TBI; concussion, hematoma Vital Signs Vital Signs: Vital Signs Temperature 97.7 F 08/25/24 15:41 Pulse Rate 93 08/25/24 15:41 Respiratory Rate 20 08/25/24 15:41 Blood Pressure 114/93 H 08/25/24 15:41 Pulse Oximetry 96 08/25/24 15:41 Oxygen Delivery Room Air 08/25/24 15:41 Temperature 97.9 F 08/25/24 18:00 Pulse Rate 71 08/25/24 20:28 Respiratory Rate 16 08/25/24 20:28 Blood Pressure 111/83 08/25/24 20:28 Pulse Oximetry 97 08/25/24 20:28 Oxygen Delivery Room Air 08/25/24 15:41 Imaging Data Radiologist's impression: Impression: No acute intracranial hemorrhage or suspicious mass effect. 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 Impression: Severe degenerative disease, without acute fracture. Discharge Plan Discharge Clinical Impression: Fall, Ventricular dilatation, Degenerative disc disease, cervical, Recurrent falls while walking, Hospice care patient Patient Disposition: Hospice - Medical Facility Condition: Stable Instructions: Antibiotic Form, Fall Prevention (ED) Additional Instructions: Patient should continue be offered acetaminophen/Tylenol with some regularity given his frequent falls and he may be experiencing pain/soreness that he is unable to vocalize. It is safe to take maximum 4000 mg per day of this med ication. Follow-up with your primary care physician/facility medical records custodian/hospice team. Patient Language: Uzbek Prescriptions: New acetaminophen 500 mg capsule 1,000 mg PO Q6H PRN (Reason: pain) Qty: 30 0RF No Action acetaminophen [Tylenol Extra Strength] 500 mg tablet 1,000 mg PO TID PRN (Reason: pain) Qty: 30 0RF ketorolac 10 mg tablet 10 mg PO Q8H PRN (Reason: pain) 5 Days Qty: 20 0RF Rx Instructions: maximum total duration of 5 days from all oral, intranasal, or parenteral formulations Follow-up/Referrals: Rosalinda,Clemencia Patricio APRN [Non-Staff] - (primary care provider per facility documentation) UNKNOWN,DOCTOR [Primary Care Provider] - Stand Alone Forms: Penitentiary Discharge Time of Disposition: 20:24
[2024-08-25 20:28] VITALS: BP 111/83; PULSE 71; RESP 16; O2SAT 97
== END 2024-08-25 21:47 | disposition hospice, inpatient (51) ==
PROVIDERS: Emergency Provider Student in an Organized Health Care Education/Training Program
DX: R94.02 Abnormal brain scan (principal); M50.30 Other cervical disc degeneration, unspecified cervical region; G20.A1 Parkinson's disease without dyskinesia, without mention of fluctuations; F02.80 Dementia in other diseases classified elsewhere, unspecified severity, without behavioral disturbance, psychotic disturbance, mood disturbance, and anxiety; R29.6 Repeated falls; W01.0XXA Fall on same level from slipping, tripping and stumbling without subsequent striking against object, initial encounter
CPT/HCPCS: 70450; 72125; 96372; 99284; J2060; J2270